=== PATIENT | male | born 1960 | race Caucasian/White ===

== ENCOUNTER 2019-11-18 09:38 | Emergency (ER) | payer SELFPAY ==
[2019-11-18 09:44] VITALS: BP 145/81; PULSE 108; RESP 16; TEMP 36.7; O2SAT 93; BMI 33.0
--- NOTE | 2019-11-18 09:52 | XRR_ITS ---
PROCEDURE INFORMATION: Exam: XR Left Shoulder Exam date and time: 11/18/2019 10:10 AM Age: 59 years old Clinical indication: Injury or trauma; Fall; Initial encounter; Blunt trauma (contusions or hematomas; Shoulder; Left; Additional info: Trauma/fall TECHNIQUE: Imaging protocol: XR Left shoulder. Views: 2 or more views. COMPARISON: No relevant prior studies available. FINDINGS: Bones/joints: Impacted minimally angulated humeral neck fracture. Possible fracture of the greater tuberosity. Fractured left posterior lateral 5th and 6th ribs of indeterminate age. Soft tissues: Normal. XR/XR shoulder LT min 2V* [id number] IMPRESSION: 1. Impacted minimally angulated humeral neck fracture. 2. Possible fracture of the greater tuberosity. 3. Fractured left posterior lateral 5th and 6th ribs of indeterminate age.
--- NOTE | 2019-11-18 10:21 | W.ED.FALL ---
HPI - Fall General: Chief Complaint: Fall Stated Complaint: left shoulder pain/fall Time Seen by Provider: 11/18/19 09:52 Source: patient Mode of arrival: ambulatory Limitations: no limitations History of Present Illness: HPI Narrative: stubbed toe on an object that then caused him to fall onto his L shoulder x yesterday; denies striking his head, LOC, neck or back pain MD complaint: fall Onset (ago): day(s) Fall from: standing Place fall occurred: home Loss of consciousness: None Prolonged down time: no Symptoms prior to fall: none Context: tripped/slipped Location of injury: other (L shoulder) Location of injury - extremities: Left: shoulder Associated symptoms-after fall: Reports no associated symptoms; Denies abdominal pain, chest pain, lightheadedness or neck pain Review of Systems Eyes: Denies: change in vision or blurry vision Card: Denies: chest pain, palpitations, irregular heart rhythm, lightheadedness, syncope or pre-syncope Resp: Denies: shortness of breath GI: Denies: abdominal pain, nausea or vomiting Musc: Reports: joint pain (L shoulder); Denies: neck pain, back pain, extremity pain or extremity swelling Neuro: Denies: numbness in extremities, weakness in extremities, changes in sensation, lack of coordination, frequent falls or dizziness PFSH ED PFSH: Statuses (acute, chronic, etc) shown below reflect problem list status as previously entered and may not be historically accurate Social History Smoking and tobacco status: current every day smoker Physical Exam Const: COMMON NORMALS: no apparent distress, oriented x3, alert and well nourished NUTRITIONAL APPEARANCE: obese HENMT: COMMON NORMALS: normocephalic and head/scalp atraumatic HEAD & SCALP: normocephalic and atraumatic Neck/C-Spine: COMMON NORMALS: full ROM CERVICAL SPINE: No cervical spine tenderness Resp: COMMON NORMALS: normal respiratory effort and clear to auscultation bilaterally AUSCULTATION: clear to auscultation bilaterally Cardio: COMMON NORMALS: regular rate and regular rhythm RATE: regular rate RHYTHM: regular rhythm Extremity: LEFT UPPER EXTREMITY: Yes shoulder joint (TTP; severly dec ROM secondary to pain; NV intact ) Neuro: COMMON NORMALS: oriented x3 SENSORIUM/ORIENTATION: Yes alert Course Vital Signs: Vital signs: Vital Signs Temperature 98.1 F 11/18/19 09:44 Pulse Rate 108 H 11/18/19 09:44 Respiratory Rate 16 11/18/19 09:44 Blood Pressure 145/81 11/18/19 09:44 Pulse Oximetry 93 11/18/19 09:44 MDM - Fall MDM Narrative: Medical decision making narrative: will sling and CM will set him up with orthopedic follow up Imaging Data^: L shoulder : My impression: humeral neck fx; minimal to no displacement; glenohumeral joint intact Discharge Plan Discharge Patient Disposition: Home, Self-Care Clinical Impression: Humerus surgical neck fracture Qualifiers: Encounter type: initial encounter Fracture type: closed Fracture morphology: unspecified fracture morphology Fracture alignment: nondisplaced Laterality: left Qualified Code(s): S42.215A - Unspecified nondisplaced fracture of surgical neck of left humerus, initial encounter for closed fracture Condition: Stable Prescriptions: No Action Aspercream See Rx Instructions .ROUTE .COMPLEX PRN (Reason: unknown) RF: 0 Senokot 8.6 mg Tablet 8.6 mg PO BID RF: 0 cyanocobalamin (vitamin B-12) 1,000 mcg Tablet 1,000 mcg PO DAILY RF: 0 levothyroxine 25 mcg Tablet 25 mcg PO DAILY RF: 0 carbamazepine 200 mg Tablet Extended Release 12 Hr 200 mg PO BID RF: 0 Protonix 40 mg Tablet,Delayed Release (Dr/Ec) 40 mg PO DAILY RF: 0 simvastatin 20 mg Tablet 20 mg PO DAILY RF: 0 metformin 1,000 mg Tablet 1,000 mg PO BID RF: 0 ibuprofen 200 mg Tablet 200 - 400 mg PO DAILY PRN (Reason: Pain) RF: 0 folic acid 1 mg Tablet 1 mg PO DAILY RF: 0 olanzapine 15 mg Tablet 15 mg PO BEDTIME RF: 0 albuterol sulfate 90 mcg/actuation Hfa Aerosol Inhaler 2 puff INHALATION Q4H PRN (Reason: Shortness Of Breath) RF: 0 Lunesta 3 mg Tablet 3 mg PO BEDTIME RF: 0 diclofenac sodium 1 % Gel 2 - 4 g TOPICAL QID PRN (Reason: unknown) RF: 0 oxycodone 10 mg Tablet See Rx Instructions .ROUTE .COMPLEX RF: 0 oxycodone 10 mg Tablet See Rx Instructions .ROUTE .COMPLEX RF: 0 triamcinolone acetonide See Rx Instructions .ROUTE .COMPLEX PRN (Reason: unknown) RF: 0 Discharge Orders: Discharge Order (Routine); Ordered 11/18/19 Ordered By: Tereza Moreira Referrals: Sanam Sosa DO [Primary Care Provider] - Discharge Diet: Usual diet Discharge Activity: stay in sling until instructed otherwise by orthopedics Activity Restrictions/Additional Instructions: Can continue your normal daily pain meds for discomfort. Case management should contact you tomorrow to give you appointment date/time for orthopedic follow up. Discharge Date/Time: 11/18/19 10:42 Coding Level of Care Code ED Senior Oracle Soa Developer for Chg Fwd Exam Problem Focused
--- NOTE | 2019-11-19 14:51 | DCPLANNER ---
ancillary services manager therapy had message to schedule a follow up appointment for patient with ortho. ancillary services manager therapy called ortho, spoke with Pat, gave clinic patients information. ancillary services manager therapy was told that patients information would be printed and reviewed. Clinic will call case sealer and patient with appointment information.
--- NOTE | 2019-11-21 13:16 | DCPLANNER ---
A follow up appointment was scheduled for November at 10:[address] Merchant. Clinic will notify patient of the appointment.
--- NOTE | 2019-11-27 14:39 | DCPLANNER ---
Patient attended appointment scheduled for 11.22.19 with ortho.
== END 2019-11-18 10:42 | disposition home or self-care (01) ==
PROVIDERS: Emergency Provider Physician Assistant; Family Provider Family Medicine; PCP Family Medicine
DX: S42.215A Unspecified nondisplaced fracture of surgical neck of left humerus, initial encounter for closed fracture (principal); Z79.84 Long term (current) use of oral hypoglycemic drugs; W19.XXXA Unspecified fall, initial encounter; Y92.009 Unspecified place in unspecified non-institutional (private) residence as the place of occurrence of the external cause; F17.210 Nicotine dependence, cigarettes, uncomplicated
CPT/HCPCS: 73030; 99282

== ENCOUNTER → 2019-12-06 09:34 | Outpatient (BNVA) | payer OTHER, SELFPAY | PROVIDERS: Family Provider Family Medicine; PCP Family Medicine; Visit Provider Orthopaedic Surgery | DX: S42.292A Other displaced fracture of upper end of left humerus, initial encounter for closed fracture (principal); X58.XXXA Exposure to other specified factors, initial encounter | CPT/HCPCS: 73030 ==

== ENCOUNTER → 2019-12-27 13:30 | Outpatient (BNVA) | payer OTHER, SELFPAY | PROVIDERS: Family Provider Family Medicine; PCP Family Medicine; Visit Provider Orthopaedic Surgery | DX: S42.212A Unspecified displaced fracture of surgical neck of left humerus, initial encounter for closed fracture (principal); S22.42XA Multiple fractures of ribs, left side, initial encounter for closed fracture; X58.XXXA Exposure to other specified factors, initial encounter | CPT/HCPCS: 73030 ==

== ENCOUNTER 2020-01-07 09:25 | Outpatient (RCR) | payer BC, SELFPAY | END 2020-02-05 23:59 | disposition home or self-care (01) | LOC: SPT 09:25 | PROVIDERS: Family Provider Family Medicine; PCP Family Medicine; Referring Provider Orthopaedic Surgery; Visit Provider Orthopaedic Surgery | DX: S42.202D Unspecified fracture of upper end of left humerus, subsequent encounter for fracture with routine healing (principal); X58.XXXD Exposure to other specified factors, subsequent encounter | CPT/HCPCS: 97110; 97162 ==

== ENCOUNTER 2023-02-12 00:09 | Inpatient (IN) | payer MEDICARE, SELFPAY ==
[2023-02-12] VITALS (14 sets, daily range): BP systolic 127–153; BP diastolic 65–78; PULSE 98–124; RESP 16–20; TEMP 36.7–37.4; O2SAT 91–97; BMI 30.4; BMI 32.3
--- NOTE | 2023-02-12 00:24 | ED.C_ITS ---
HPI - Psych General: Chief Complaint: Psychiatric Symptoms Stated Complaint: 96 hour hold Time Seen by Provider: 02/12/23 00:11 Source: patient and police Mode of arrival: ambulatory Limitations: no limitations History of Present Illness: 62-year-old male who is brought up by police after his daughter placed him on a 96-hour hold he has a history of alcoholism she states he had not drank for some time start drinking heavily again over the last week states has been having hallucinations he is been also having thoughts of killing people she states she had found him in his car with guns he does get to kill his neighbors for sleep with his his had passed recently. He also stated that he just does not want to live anymore and would like to patient here is denying SI and HI he does appear confused he has a history of cirrhosis likely from his daughter he had recently had a GI bleed as well where he was in [facility] in October history from his daughter and him is very poor though. Associated symptoms: Reports auditory hallucinations and suicidal ideation Review of Systems Const: Denies: fever(s), chills, body aches or change in appetite Eyes: Denies: blurry vision or eye discomfort ENMT: Denies: throat pain or dental pain Card: Denies: chest pain Resp: Denies: dyspnea GI: Denies: abdominal pain, nausea, vomiting or diarrhea : Denies: dysuria Musc: Denies: neck pain or back pain Skin/Breast: Denies: rash Neuro: Denies: headache(s) Psych: Reports: paranoia, auditory hallucinations and suicidal ideation Marc/Lymph: Denies: easy bruising All/Imm: Denies: urticaria PFS ED PFSH: Medical History Hypothyroidism Social History Smoking and tobacco status: current every day smoker Physical Exam Const: COMMON NORMALS: patient oriented x3 HENMT: COMMON NORMALS: normocephalic and atraumatic HEAD & SCALP: normocephalic and atraumatic Eye: COMMON NORMALS: Equal, round and reactive pupils present and EOMs intact bilaterally PUPIL: Yes Equal, round and reactive pupils present Neck/C-Spine: COMMON NORMALS: full ROM and supple Chest: COMMONS NORMALS: normal inspection of the chest and normal palpation of entire chest wall Resp: COMMON NORMALS: normal respiratory effort, No retractions, No use of accessory muscles and clear to auscultation bilaterally AUSCULTATION: clear to auscultation bilaterally Cardio: COMMON NORMALS: regular rate, regular rhythm and No murmurs present (Cardio) RATE: regular rate RHYTHM: regular rhythm GI: COMMON NORMALS: Normal to inspection, nondistended, normoactive bowel sounds present, Soft to palpation, non-tender and no masses PALPATION: Yes Soft to palpation Extremity: COMMON NORMALS: normal to inspection and full ROM Neuro: COMMON NORMALS: patient oriented x3, moves all extremities and no focal motor deficits Psych: COMMON NORMALS: mental status grossly normal, Normal thought process present and cooperative THOUGHT PROCESS: Normal thought process present THOUGHT CONTENT: Yes Suicidality present, Yes Homicidality present and Yes Hallucination(s) present Skin: COMMON NORMALS: no rashes or lesions noted and no wounds GENERAL SKIN EXAM: no rashes or lesions noted Course Vital Signs: Vital signs: Vital Signs Temperature 98.4 F 02/12/23 01:56 Pulse Rate 111 H 02/12/23 01:56 Respiratory Rate 16 02/12/23 01:56 Blood Pressure 147/75 02/12/23 00:18 Pulse Oximetry 97 02/12/23 01:56 Oxygen Delivery Me thod 02/12/23 01:56 MDM - Psych Medical Decision Making Patient presents here with hallucinations been making suicidal statements and homicidal statements patient's daughter did place him under 96 upon checking his blood work his ammonia is quite elevated likely with a hepatic encephalopathy could be causing all of this I spoke to the hospitalist will admit to hospital service will have psychiatry is consulted as well since he is under 96. Lab Data 02/12/23 00:40 02/12/23 00:40 Radiology Impressions Chest X-Ray 02/12/23 00:29 IMPRESSION: No acute findings. Head CT 02/12/23 00:29 IMPRESSION: Negative for intracranial hemorrhage or mass effect. Laboratory Results WBC 4.7 10^3/uL (4.0-10.0) 02/12/23 00:40 RBC 4.68 10^6/uL (4.1-5.3) 02/12/23 00:40 Hgb 10.0 g/dL (11.7-16.6) L 02/12/23 00:40 Hct 34.0 % (42.0-52.0) L 02/12/23 00:40 MCV 72.6 fl (80-94) L 02/12/23 00:40 MCH 21.4 pg (28.0-34.0) L 02/12/23 00:40 MCHC 29.4 g/dL (30.0-36.0) L 02/12/23 00:40 RDW 20.7 % (12.1-15.1) H 02/12/23 00:40 Plt Count 141 10^3/cmm (130-400) 02/12/23 00:40 MPV 9.6 fL (7.4-10.4) 02/12/23 00:40 Neut % (Auto) 42.3 % 02/12/23 00:40 Lymph % (Auto) 46.1 % 02/12/23 00:40 Day % (Auto) 6.1 % 02/12/23 00:40 Eos % (Auto) 3.2 % 02/12/23 00:40 Baso % (Auto) 2.1 % 02/12/23 00:40 Neut # (Auto) 2.00 10^3/uL (1.8-7.7) 02/12/23 00:40 Lymph # (Auto) 2.2 10^3/uL (0.8-4.8) 02/12/23 00:40 Day # (Auto) 0.3 10^3/uL (0.2-0.9) 02/12/23 00:40 Eos # (Auto) 0.2 10^3/uL (0.0-0.8) 02/12/23 00:40 Baso # (Auto) 0.1 10^3/uL (0.0-0.1) 02/12/23 00:40 Nucleated RBC % (auto) 0 % 02/12/23 00:40 Nucleated RBCs # 0.0 /100WBC 02/12/23 00:40 PT 17.30 SECONDS (12.1-14.9) H 02/12/23 00:40 INR 1.37 (0.8-1.2) H 02/12/23 00:40 Sodium 136 mmol/L (136-145) 02/12/23 00:40 Potassium 3.6 mmol/L (3.5-5.1) 02/12/23 00:40 Chloride 103 mmol/L (98-107) 02/12/23 00:40 Carbon Dioxide 23 mmol/L (22-29) 02/12/23 00:40 Anion Gap 13.6 (5-19) 02/12/23 00:40 BUN 5 mg/dL (8-23) L 02/12/23 00:40 Creatinine 0.5 mg/dL (0.7-1.2) L 02/12/23 00:40 GFR Calculation 167.4 mL/min (90-130) H 02/12/23 00:40 Glucose 319 mg/dL (65-115) H 02/12/23 00:40 Calculated Osmolality 292 mOsm/kg (285-295) 02/12/23 00:40 Calcium 7.9 mg/dL (8.5-10.5) L 02/12/23 00:40 Total Bilirubin 0.8 mg/dL (0.15-1.2) 02/12/23 00:40 AST 26 U/L (0-40) 02/12/23 00:40 ALT 12 U/L (0-41) 02/12/23 00:40 Alkaline Phosphatase 164 U/L (40-130) H 02/12/23 00:40 NT-Pro-B Natriuret Pep 36 pg/mL (0-125) 02/12/23 00:40 Total Protein 7.2 g/dL (6.6-8.7) 02/12/23 00:40 Albumin 3.5 g/dL (3.5-5.2) 02/12/23 00:40 Globulin 3.7 g/dL (1.3-4.6) 02/12/23 00:40 TSH 1.22 uIU/mL (0.27-4.20) 02/12/23 00:40 Urine Color Yellow (Yellow) 02/12/23 00:26 Urine Appearance Clear (CLEAR) 02/12/23 00:26 Urine pH 5 (5-7) 02/12/23 00:26 Ur Specific [place] 1.010 (1.005-1.030) 02/12/23 00:26 Urine Protein Neg (Negative) 02/12/23 00:26 Urine Glucose (UA) 4+ (Normal) H 02/12/23 00:26 Urine Ketones 1+ (Negative) H 02/12/23 00:26 Urine Blood Neg (Negative) 02/12/23 00:26 Urine Nitrate Negative (Negative) 02/12/23 00:26 Urine Bilirubin Neg (Negative) 02/12/23 00:26 Urine Urobilinogen 1 mg/dL (Negative) H 02/12/23 00:26 Ur Leukocyte Esterase Negative (Negative) 02/12/23 00:26 Salicylates < 0.3 mg/dL (3-10) L 02/12/23 00:40 Urine Opiates Screen Negative ng/mL (Negative) 02/12/23 00:26 Acetaminophen < 5.0 ug/mL (10-30) L 02/12/23 00:40 Ur Barbiturates Screen Negative ng/mL (Negative) 02/12/23 00:26 Ur Phencyclidine Scrn Negative ng/mL (Negative) 02/12/23 00:26 Ur Amphetamines Screen Negative ng/mL (Negative) 02/12/23 00:26 U Benzodiazepines Scrn Positive ng/mL (Negative) H 02/12/23 00:26 Urine Cocaine Screen Negative ng/mL (Negative) 02/12/23 00:26 U Marijuana (THC) Screen Negative ng/mL (Negative) 02/12/23 00:26 Ethyl Alcohol 291 mg/dL (0-10) H 02/12/23 00:40 SARS-CoV-2 Ag (Rapid) negative (Negative) 02/12/23 00:59 EKG Data EKG 1: I personally reviewed and interpreted this EKG as follows: EKG interpretation date: 02/12/23 EKG interpretation time: 00:37 Interpretation: sinus tach hr [address] or t wave abnormalities qrs 78 qtc 398 Discharge Plan Discharge Patient Disposition: Admitted As Inpatient Admit Provider: Jose Chan Clinical Impression: Alcoholic cirrhosis, Acute hepatic encephalopathy, Depression Condition: Stable Coding Level of Care Code ED Mechanical Engineering Draftsperson for Lamin Pink
--- NOTE | 2023-02-12 00:29 | CTR_ITS ---
PROCEDURE INFORMATION: Exam: CT Head Without Contrast Exam date and time: 02/12/2023 12:46 AM Age: 62 years old Clinical indication: Altered mental status/memory loss; Confusion or disorientation; Additional info: AMS TECHNIQUE: Imaging protocol: Computed tomography of the head without contrast. Radiation optimization: All CT scans at this facility use at least one of these dose optimization techniques: automated exposure control; mA and/or kV adjustment per patient size (includes targeted exams where dose is matched to clinical indication); or iterative reconstruction. REPORTING DATA: Count of CT and Cardiac NM exams in prior 12 months: This patient has received 0 known CTs and 0 known cardiac nuclear medicine studies in the 12 months prior to the current study. COMPARISON: MR head wo/w con [id number] 04/07/2018 4:13 PM RADIATION DOSE METRICS: Total DLP (mGy-cm): 1208.18 FINDINGS: Brain: Mild diffuse white matter disease likely reflecting chronic microvascular ischemic changes. Cerebral ventricles: No ventriculomegaly. Paranasal sinuses: Visualized sinuses are unremarkable. No fluid levels. Mastoid air cells: Visualized mastoid air cells are well aerated. Bones/joints: Unremarkable. No acute fracture. Soft tissues: Unremarkable. CT/CT head wo con* [id number] IMPRESSION: Negative for intracranial hemorrhage or mass effect.
--- NOTE | 2023-02-12 00:29 | XRR_ITS ---
PROCEDURE INFORMATION: Exam: XR Chest Exam date and time: 02/12/2023 12:52 AM Age: 62 years old Clinical indication: Shortness of breath; Additional info: SOB TECHNIQUE: Imaging protocol: Radiologic exam of the chest. Views: 1 view. COMPARISON: CR XR chest 1V [id number] 03/31/2018 6:16 PM FINDINGS: Lungs: Unremarkable. No consolidation. Pleural spaces: Unremarkable. No pleural effusion. No pneumothorax. Heart/Mediastinum: Unremarkable. No cardiomegaly. Bones/joints: Unremarkable. XR/XR chest 1V portable [id number] IMPRESSION: No acute findings.
--- NOTE | 2023-02-12 00:37 | ECG_ITS ---
[facility] Test Date: 2023-02-12 Pat Name: Bernardino Jackson Department: Room: Gender: Male Punch Card Operator: : 1960 Requested By: Karla Rodriguez Order Number: [id number] Avril MD: Gretchen Leung M.D. Measurements Intervals [place] Chuck Rate: 119 P: 156 IL: 136 QRS: 28 QRSD: 78 T: 114 QT: 327 QTc: 461 Interpretive Statements SINUS TACHYCARDIA SEPTAL MYOCARDIAL INFARCTION , OF INDETERMINATE AGE [40+ ms Q WAVE IN V1/V2] Nonspecific T wave changes in the high lateral leads Compared to ECG 03/29/2018 22:42:15 Myocardial infarct finding now present Sinus rhythm no longer present Electronically Signed On 02-12-2023 21:40:58 CDT by Gretchen Leung M.D. [id number]
[2023-02-12 01:09] LABS: Basophils # 0.1 10^3/uL (0.0-0.1); Basophils % 2.1 %; Eosinophils # 0.2 10^3/uL (0.0-0.8); Eosinophils % 3.2 %; Lymphocytes # 2.2 10^3/uL (0.8-4.8); Lymphocytes % 46.1 %; Mean Corpuscular HGB Conc 29.4 g/dL (30.0-36.0); Mean Corpuscular Hemoglobin 21.4 pg (28.0-34.0); Mean Corpuscular Volume 72.6 fl (80-94); Mean Platelet Volume 9.6 fL (7.4-10.4); Monocytes # 0.3 10^3/uL (0.2-0.9); Monocytes % 6.1 %; Neutrophils % 42.3 %; Nucleated Red Blood Cells % 0 %; Platelet Count 141 10^3/cmm (130-400); Red Blood Count 4.68 10^6/uL (4.1-5.3); Red Cell Distribution Width 20.7 % (12.1-15.1); White Blood Count 4.7 10^3/uL (4.0-10.0)
[2023-02-12 01:19] LABS: Add Urine Microscopic? NO; Charge for UA Resulting for Rev
[2023-02-12 01:22] LABS: Amphetamines Screen Urine Negative (Negative); Barbiturates Screen Urine Negative (Negative); Benzodiazepines Screen Urine Positive (Negative); Cocaine Screen Urine Negative (Negative); Opiate Screen Urine Negative (Negative); PCP Screen Urine Negative (Negative); THC Screen Urine Negative (Negative)
[2023-02-12 01:29] LABS: Alanine Aminotransferase 12 U/L (0-41); Albumin Level 3.5 g/dL (3.5-5.2); Alcohol Level 291 mg/dL (0-10); Alkaline Phosphatase 164 U/L (40-130); Anion Gap 13.6 (5-19); Aspartate Amino Transferase 26 U/L (0-40); Blood Urea Nitrogen 5 mg/dL (8-23); Calcium 7.9 mg/dL (8.5-10.5); Carbon Dioxide 23 mmol/L (22-29); Chloride 103 mmol/L (98-107); Globulin 3.7 g/dL (1.3-4.6); Glomerular Filtration Rate 167.4 mL/min (90-130); Glucose 319 mg/dL (65-115); NT Pro B Type Natriuretic Pept 36 pg/mL (0-125); Osmolality Calculated 292 mOsm/kg (285-295); Potassium 3.6 mmol/L (3.5-5.1); Sodium 136 mmol/L (136-145); Thyroid Stimulating Hormone 1.22 uIU/mL (0.27-4.20); Total Bilirubin 0.8 mg/dL (0.15-1.2); Total Protein 7.2 g/dL (6.6-8.7)
[2023-02-12 01:30] LABS: INR 1.37 (0.8-1.2)
[2023-02-12 01:31] LABS: Glucose Urine UA 4+ (Normal); Protein Urine Neg (Negative); Urine Appearance Clear (CLEAR); Urine Color Yellow (Yellow); pH Urine 5 (5-7)
[2023-02-12] MEDS: multivitamin therapeutic Tablet 1 TAB PO ×2 (01:31→10:02)
[2023-02-12] MEDS: sodium chloride 0.9% 1,000 ML 999 ML IV ×2 (01:31→03:04)
[2023-02-12 01:32] LABS: Acetaminophen < 5.0 ug/mL (10-30); Salicylate < 0.3 mg/dL (3-10)
[2023-02-12 01:32] LABS: Bilirubin Urine Neg (Negative); Blood Urine Neg (Negative); Ketones Urine 1+ (Negative); Leukocyte Esterase Urine Negative (Negative); Nitrate Urine Negative (Negative); Urobilinogen Urine 1 mg/dL (Negative)
[2023-02-12] MEDS: LORazepam 2 mg/mL INJ 1 mL 1 MG IVP (01:57)
[2023-02-12 02:42] LABS: SARS Covid-2 Antigen negative (Negative)
--- NOTE | 2023-02-12 02:45 | PM.CONSULT ---
Providers/Reason For Consult Consulting Physician/Specialty*: Carole Oneill MD/Internal Medicine Reason for Consult*: Medical management Requesting Physician: Dr. Jose Chan Attending Physician: Dr. Jose Chan Primary Care Provider: Sanam Sosa DO History of Present Illness History of Present Illness Bernardino Jackson is a 62 year old male with past medical history of GI bleed in October, liver cirrhosis hypothyroidism, diabetes mellitus, left humerus fracture 2019, seizures? Presented to the hospital today after being brought in by his daughter for 96-hour hold. Patient has a history of alcoholism and she states that he has not drank for some time but recently started drinking heavily again and he is having hallucinations now. He has been having thoughts of killing people around the neighborhood including himself. She found him in the car with guns. His recently he does not want to live anymore and is depressed however denies suicidal ideation in the ER. He is somewhat confused. Poor historian. Most of the history obtained from daughter. I obtained history from chart and ER doctor. Patient is a current everyday smoker. ED course: On arrival blood pressure 147/75, respirate 18, tachycardic 124, temperature 99.3, saturating 95% on room air. EKG showed sinus tachycardia no acute ST abnormalities. Hemoglobin 10.0, RDW 20.7, platelet 141, INR 1.37, BUN 5, creatinine 0.5, glucose 319, calcium 7.9, alkaline phosphatase 164, TSH 1.22. UA negative for leukocyte Estrace, nitrates. Glucose 4+ with positive. Salicylates negative, negative opioids, negative urine drug screen except positive for benzodiazepines. Alcohol level positive at 291, rapid COVID-negative. CT head did not show any intracranial bleed or mass effect. Chest x-ray shows no acute findings at this time. Patient given folic acid, 2 L normal saline bolus, thiamine 100 mg IM x1, multivitamins. Patient has been admitted to the neuropsychiatric unit and medicine has been consulted for management of medical conditions. Medications/Allergies Home Medications Medication Instructions Recorded Confirmed Last Taken Type Aspercream See Rx Instructions .Route 11/18/19 12/27/19 Unknown History .COMPLEX PRN unknown albuterol sulfate 90 mcg/actuation 2 puff inhalation Q4H PRN 11/18/19 12/27/19 Unknown History aerosol inhaler Shortness Of Breath carbamazepine 200 mg 200 mg PO BID 11/18/19 12/27/19 Unknown History tablet,extended release,12 hr cyanocobalamin (vitamin B-12) 1,000 mcg PO DAILY 11/18/19 12/27/19 Unknown History 1,000 mcg tablet diclofenac sodium 1 % topical gel 2 - 4 g topical QID PRN unknown 11/18/19 12/27/19 Unknown History eszopiclone 3 mg tablet (Lunesta) 3 mg PO BEDTIME 11/18/19 12/27/19 Unknown History folic acid 1 mg tablet 1 mg PO DAILY 11/18/19 12/27/19 Unknown History ibuprofen 200 mg tablet 200 - 400 mg PO DAILY PRN Pain 11/18/19 12/27/19 Unknown History levothyroxine 25 mcg tablet 25 mcg PO DAILY 11/18/19 12/27/19 Unknown History metformin 1,000 mg tablet 1,000 mg PO BID 11/18/19 12/27/19 Unknown History olanzapine 15 mg tablet 15 mg PO BEDTIME 11/18/19 12/27/19 Unknown History oxycodone 10 mg tablet See Rx Instructions .Route .COMPLEX 11/18/19 12/27/19 Unknown History oxycodone 10 mg tablet See Rx Instructions .Route .COMPLEX 11/18/19 12/27/19 Unknown History pantoprazole 40 mg tablet,delayed 40 mg PO DAILY 11/18/19 12/27/19 Unknown History release (Protonix) sennosides 8.6 mg tablet (Senokot) 8.6 mg PO BID 11/18/19 12/27/19 Unknown History simvastatin 20 mg tablet 20 mg PO DAILY 11/18/19 12/27/19 Unknown History triamcinolone acetonide See Rx Instructions .Route 11/18/19 12/27/19 Unknown History .COMPLEX PRN unknown Allergies Allergy/AdvReac Type Severity Reaction Status Date / Time No Known Allergies Allergy Verified 12/27/19 13:40 PFSH Acute PFSH: Medical History Hypothyroidism Social History Smoking and tobacco status: current every day smoker Vitals/I&O/Wt Last Vital Signs Temp 98.4 F 02/12/23 01:56 Pulse 111 H 02/12/23 01:56 Resp 16 02/12/23 01:56 BP 147/75 02/12/23 00:18 Pulse Ox 97 02/12/23 01:56 O2 Del Method 02/12/23 01:56 Weight last 48 hrs Weight 96.162 kg Physical Exam Narrative: General: Alert oriented to self, patient seen laying in bed at this time. HEENT: Normocephalic, atraumatic, EOMI, no acute respiratory distress Cardio: Regular rate rhythm, normal S1-S2 Respiratory: Clear to auscultation bilaterally no wheezes no rhonchi. GI: Abdomen soft, nontender, bowel sounds + Extremities: No edema noted bilateral lower extremities. Data 02/12/23 00:40 02/12/23 00:40 A&P Assessment and plan (1) Hypothyroidism: (2) Alcohol intoxication: (3) Hallucinations: (4) Suicidal ideation: (5) History of GI bleed: (6) Alcoholic cirrhosis: (7) Anemia: (8) Diabetes mellitus: Plan #Alcohol abuse, alcohol intoxication #Suicidal ideation #96-hour hold #Seizures #Diabetes mellitus #GERD #Constipation #Insomnia #COPD? #Recent GI bleed ? Continue DuoNeb every 6 hours as needed ? Need to confirm home medications before ordering ? Continue levothyroxine ? Continue low-dose intensity sliding scale insulin ? Continue Protonix ? Continue Senokot 8.5 twice daily ? Continue simvastatin ? Continue thiamine and folic acid ? [facility] protocol to be ordered/n.p.u. orders ? Check hemoglobin A1c ? Recheck hemoglobin hematocrit every 12 hours. No evidence of bleed at this time ? Check iron studies, TIBC, ferritin. Patient may require iron infusion ? We will hold off on DVT prophylaxis at this time ? Check TSH ? Rest of management as per psychiatry Full code SCDs for DVT prophylaxis Consult Attestations Medical Necessity Statement: Defer to primary team Other Coding Information Focused coding review requested Diagnoses Hypothyroidism E03.9 Alcohol intoxication F10.929 Hallucinations R44.3 Suicidal ideation R45.851 History of GI bleed Z87.19 Alcoholic cirrhosis K70.30 Anemia D64.9 Diabetes mellitus E11.9
[2023-02-12 03:47] LABS: Ammonia 165 umol/L (16-60)
--- NOTE | 2023-02-12 03:55 | PM.HP ---
Providers/Chief Complaint Admitting Physician: Jose Chan MD Primary Care Provider: Sanam Sosa DO Chief Complaint: 96 hour hold History of Present Illness It Iam Jackson is a 62 year old male with past medical history of GI bleed in October, liver cirrhosis hypothyroidism, diabetes mellitus, left humerus fracture 2020, seizures?? Presented to the hospital today after being brought in by his daughter for 96-hour hold.? Patient has a history of alcoholism and she states that he has not drank for some time but recently started drinking heavily again and he is having hallucinations now.? He has been having thoughts of killing people around the neighborhood including himself.? She found him in the car with guns.? His recently he does not want to live anymore and is depressed however denies suicidal ideation in the ER.? He is somewhat confused.? Poor historian.? Most of the history obtained from ER doctor.? Patient is a current everyday smoker. When seen he is quite appropriate appears depressed. He states that his and he was looking at things in the house and the way she left the house and became really emotional and wanted to go grab a drink. He states his grandson forced him to come to the hospital. Patient does not talk about guns or suicidal ideation at this time however does say that he was very depressed and sad. He is asking for his sleeping medication. States he does not take metformin anymore and is now on gabapentin however cannot confirm any other medications at this time. He goes to [facility]. His home medications will need to confirm in a.m. from pharmacy directly. ED course: On arrival blood pressure 147/75, respirate 18, tachycardic 124, temperature 99.3, saturating 95% on room air.? EKG showed sinus tachycardia no acute ST abnormalities.? Hemoglobin 10.0, RDW 20.7, platelet 141, INR 1.37, BUN 5, creatinine 0.5, glucose 319, calcium 7.9, alkaline phosphatase 164, TSH 1.22.? UA negative for leukocyte Estrace, nitrates.? Glucose 4+ with positive.? Salicylates negative, negative opioids, negative urine drug screen except positive for benzodiazepines.? Alcohol level positive at 291, rapid COVID-negative.? CT head did not show any intracranial bleed or mass effect.? Chest x-ray shows no acute findings at this time.? Patient given folic acid, 2 L normal saline bolus, thiamine 100 mg IM x1, multivitamins.? Patient was to be admitted to Neuropsych Unit and medicine was consulted however after ammonia level came back at 165 medicine admitted patient to their service with psychiatry on consult. Medications/Allergies Home Medications Medication Instructions Recorded Confirmed Last Taken Type Aspercream See Rx Instructions .Route 11/18/19 12/27/19 Unknown History .COMPLEX PRN unknown albuterol sulfate 90 mcg/actuation 2 puff inhalation Q4H PRN 11/18/19 12/27/19 Unknown History aerosol inhaler Shortness Of Breath carbamazepine 200 mg 200 mg PO BID 11/18/19 12/27/19 Unknown History tablet,extended release,12 hr cyanocobalamin (vitamin B-12) 1,000 mcg PO DAILY 11/18/19 12/27/19 Unknown History 1,000 mcg tablet diclofenac sodium 1 % topical gel 2 - 4 g topical QID PRN unknown 11/18/19 12/27/19 Unknown History eszopiclone 3 mg tablet (Lunesta) 3 mg PO BEDTIME 11/18/19 12/27/19 Unknown History folic acid 1 mg tablet 1 mg PO DAILY 11/18/19 12/27/19 Unknown History ibuprofen 200 mg tablet 200 - 400 mg PO DAILY PRN Pain 11/18/19 12/27/19 Unknown History levothyroxine 25 mcg tablet 25 mcg PO DAILY 11/18/19 12/27/19 Unknown History metformin 1,000 mg tablet 1,000 mg PO BID 11/18/19 12/27/19 Unknown History olanzapine 15 mg tablet 15 mg PO BEDTIME 11/18/19 12/27/19 Unknown History oxycodone 10 mg tablet See Rx Instructions .Route .COMPLEX 11/18/19 12/27/19 Unknown History oxycodone 10 mg tablet See Rx Instructions .Route .COMPLEX 11/18/19 12/27/19 Unknown History pantoprazole 40 mg tablet,delayed 40 mg PO DAILY 11/18/19 12/27/19 Unknown History release (Protonix) sennosides 8.6 mg tablet (Senokot) 8.6 mg PO BID 11/18/19 12/27/19 Unknown History simvastatin 20 mg tablet 20 mg PO DAILY 11/18/19 12/27/19 Unknown History triamcinolone acetonide See Rx Instructions .Route 11/18/19 12/27/19 Unknown History .COMPLEX PRN unknown Allergies Allergy/AdvReac Type Severity Reaction Status Date / Time No Known Allergies Allergy Verified 12/27/19 13:40 PFSH Acute PFSH: Medical History Hypothyroidism Social History Smoking and tobacco status: current every day smoker Vitals/I&O/Wt Last Vital Signs Temp 98.4 F 02/12/23 01:56 Pulse 111 H 02/12/23 01:56 Resp 16 02/12/23 01:56 BP 147/75 02/12/23 00:18 Pulse Ox 97 02/12/23 01:56 O2 Del Method 02/12/23 01:56 Weight last 48 hrs Weight 96.162 kg Physical Exam Narrative: General: Alert oriented to self, patient seen laying in bed at this time. HEENT: Normocephalic, atraumatic, EOMI, no acute respiratory distress Cardio: Regular rate rhythm, normal S1-S2 Respiratory: Clear to auscultation bilaterally no wheezes no rhonchi. GI: Abdomen soft, nontender, bowel sounds + Extremities: No edema noted bilateral lower extremities. Data 02/12/23 00:40 02/12/23 00:40 A&P Assessment and plan (1) Diabetes mellitus: (2) Anemia: (3) Alcoholic cirrhosis: (4) History of GI bleed: (5) Suicidal ideation: (6) Hallucinations: (7) Alcohol intoxication: (8) Hypothyroidism: (9) Hepatic encephalopathy: Plan #Alcohol abuse, alcohol intoxication #Suicidal ideation #Hepatic encephalopathy #96-hour hold #Seizures #Diabetes mellitus #GERD #Constipation #Insomnia #COPD? #Recent GI bleed #hyperammonemia ? Continue DuoNeb every 6 hours as needed ? Need to confirm home medications before ordering ? Continue levothyroxine ? Continue low-dose intensity sliding scale insulin ? Continue Protonix ? Continue Senokot 8.5 twice daily ? Continue simvastatin ? Continue thiamine and folic acid ? [facility] protocol to be ordered/n.p.u. orders ? Check hemoglobin A1c ? Recheck hemoglobin hematocrit every 12 hours. No evidence of bleed at this time ? Check iron studies, TIBC, ferritin. Patient may require iron infusion ? We will hold off on DVT prophylaxis at this time ? Check TSH ? Rest of management as per psychiatry - lactulose 20 g bid, titrare to 3 bm/day ?Consult psychiatry. Full code SCDs for DVT prophylaxis Attestations Medical Necessity Statement*: >2 midnight stay for management of hepatic encephalopathy Other Coding Information Focused coding review requested Diagnoses Diabetes mellitus E11.9 Anemia D64.9 Alcoholic cirrhosis K70.30 History of GI bleed Z87.19 Suicidal ideation R45.851 Hallucinations R44.3 Alcohol intoxication F10.929 Hypothyroidism E03.9 Hepatic encephalopathy K76.82
[2023-02-12] MEDS: lactulose oral liq 20 gm/30 mL UDC PO ×2 (04:43→16:30)
--- NOTE | 2023-02-12 04:45 | PC.NURSE ---
Pt arrived to room 278-1, ambulated to bed w/SBA. Pt unable to verify medications only can give a partial description of pill color.
[2023-02-12] MEDS: nicotine 14 mg Patch 1 PATCH TRANSDERMA (05:22)
[2023-02-12] MEDS: zolpidem 5 mg Tablet 2.5 MG PO (05:23)
[2023-02-12] MEDS: ipratropium-albuterol 3 mL Neb INHALATION (05:27)
[2023-02-12] MEDS: LORazepam 2 mg/mL INJ 1 mL IVP (05:30)
[2023-02-12 06:57] LABS: Magnesium 1.4 mg/dL (1.7-2.3)
[2023-02-12 06:59] LABS: Ferritin 11 ng/mL (30-400); Iron 20 ug/dL (59-158); Percent Saturation 7.7 % (20-50); Total Iron Binding Capacity 257 mcg/dl; Unsaturated Iron Binding 237 ug/dL (112-347)
[2023-02-12 07:06] LABS: Procalcitonin 0.05 ng/mL (0-0.5)
[2023-02-12 07:17] LABS: Chol HDL Ratio 4.24 mg/dL (1.0-5.00); Cholesterol 178 mg/dL (0-200); HDL Cholesterol 42 mg/dL (60-100); LDL Cholesterol Calculated 92 mg/dL (50-129); LDL HDL Ratio 2.19 RATIO (0.00-3.22); Thyroid Stimulating Hormone 1.01 uIU/mL (0.27-4.20); Triglycerides 219 mg/dL (0-150); Vitamin B12 323 pg/mL (232-1245)
[2023-02-12 07:54] LABS: Estmated Average Glucose 148; Hemoglobin A1C 6.8 % (4.0-6.0)
[2023-02-12 08:27] LABS: Glucose Point of Care 232 mg/dL (70-110)
--- NOTE | 2023-02-12 08:32 | ECG_ITS ---
[facility] Test Date: 2023-02-12 Pat Name: Bernardino Jackson Department: Room: 278 Gender: Male Yarn Skeins Examiner: : 1960 Requested By: Andrew Amato Order Number: [id number] Avril MD: Gretchen Leung M.D. Measurements Intervals [place] Rate: 114 P: 221 VT: 242 QRS: 36 QRSD: 77 T: 53 QT: 354 QTc: 488 Interpretive Statements ECTOPIC ATRIAL TACHYCARDIA WITH FIRST DEGREE AV BLOCK SEPTAL MYOCARDIAL INFARCTION , OF INDETERMINATE AGE [40+ ms Q WAVE IN V1/V2] Compared to ECG 02/12/2023 00:37:49 First degree AV block now present Sinus tachycardia no longer present Myocardial infarct finding still present Electronically Signed On 02-12-2023 21:44:31 CDT by Gretchen Leung M.D. [email or web address]
--- NOTE | 2023-02-12 08:32 | USR_ITS ---
PROCEDURE INFORMATION: Exam: US Abdomen, Limited; Right Upper Quadrant Exam date and time: 02/12/2023 4:50 PM Age: 62 years old Clinical indication: Hepatic cirrhosis. TECHNIQUE: Imaging protocol: Real time ultrasound of the abdomen with image documentation. Limited exam focused on the right upper quadrant. COMPARISON: No relevant prior studies available. FINDINGS: Liver is enlarged measuring 17.6 cm. The hepatic parenchyma is echogenic. There is cirrhotic hepatic morphology. No focal hepatic lesion is seen. Apparent reversal of flow in the portal vein. Visualized IVC and aorta are grossly normal in caliber. No biliary ductal dilatation. The common bile duct measures 0.4 cm. Cholelithiasis with mildly thickened gallbladder wall. The gallbladder appears partially decompressed. The right kidney measures 13.2 cm. No suspicious mass or hydronephrosis. Pancreas is obscured by overlying bowel gas. US/US liver [id number] IMPRESSION: 1. Hepatomegaly with hepatic steatosis and cirrhotic hepatic morphology. Apparent reversal of flow in the portal vein. Recommend duplex ultrasound of the liver to evaluate vasculature. 2. Cholelithiasis with mildly thickened gallbladder wall. The gallbladder appears partially decompressed. If there is clinical concern for acute cholecystitis, consider HIDA scan.
[2023-02-12 09:16] LABS: Hepatitis A Antibody IgM Non-Reactive (Nonreactive); Hepatitis B Core IgM Non-Reactive (Nonreactive); Hepatitis B Surface Antigen Non-Reactive (Nonreactive); Hepatitis C Virus Antibody Non-Reactive (Nonreactive)
[2023-02-12 09:28] LABS: HIV 1 & 2 Antibody Non-Reactive (Non-Reactiv); HIV 1 & 2 Antigen Non-Reactive (Non-Reactiv)
[2023-02-12 09:39] LABS: Troponin(5th) Baseline 9 ng/L (0-15)
[2023-02-12] MEDS: folic acid 1 MG, multivitamin inj 10 ML, thiamine 100 MG in sodium chloride 0.9% 1,000 ML 252.8 MG IV (09:39)
[2023-02-12] MEDS: magnesium sulfate premix 2 GM/50 ML PIGGYBACK IV (09:40)
[2023-02-12] MEDS: levothyroxine 25 mcg Tablet PO (10:02)
[2023-02-12] MEDS: folic acid 1 mg Tablet PO (10:02)
[2023-02-12] MEDS: sennosides 8.6 mg Tablet PO ×2 (10:02→17:59)
[2023-02-12] MEDS: insulin lispro 100 unit/1 mL SUBCUT ×4 (10:03→21:19)
[2023-02-12] MEDS: thiamine 100 mg Tablet PO (10:03)
--- NOTE | 2023-02-12 10:32 | ECG_ITS ---
[facility] Test Date: 2023-02-12 Pat Name: Bernardino Jackson Department: Room: 278 Gender: Male Sales Correspondent: : 1960 Requested By: Andrew Amato Order Number: [id number] Avrli MD: Gretchen Leung M.D. Measurements Intervals [place] Rate: 112 P: -59 DC: 137 QRS: 22 QRSD: 85 T: 66 QT: 362 QTc: 494 Interpretive Statements SINUS TACHYCARDIA ABNORMAL RHYTHM ECG Compared to ECG 02/12/2023 08:44:15 First degree AV block no longer present Myocardial infarct finding no longer present Electronically Signed On 02-12-2023 21:48:18 CDT by Gretchen Leung M.D. [id number]
[2023-02-12 10:47] LABS: Glucose Point of Care 266 mg/dL (70-110)
[2023-02-12] MEDS: pantoprazole 40 mg SDV IVP ×2 (10:52→20:42)
[2023-02-12] MEDS: chlordiazePOXIDE 25 mg Capsule 50 MG PO ×3 (10:54→21:08)
[2023-02-12] MEDS: cyanocobalamin 1,000 mcg Tablet 1000 MCG PO (10:54)
[2023-02-12] MEDS: iron sucrose 200 MG in sodium chloride 0.9% (100 ml) 100 ML 220 MG IV (10:55)
[2023-02-12] MEDS: sodium chloride 0.9% 1,000 ML 75 ML IV (10:56)
[2023-02-12] MEDS: sucralfate 1 gm Tablet PO ×2 (10:56→21:09)
[2023-02-12 12:16] LABS: Troponin 5 2HR 8.17 ng/L (0-15)
--- NOTE | 2023-02-12 12:23 | P.NPUHP_ITS ---
Providers/Chief Complaint Admitting Physician: Jose Chan MD Primary Care Provider: Sanam Sosa DO Chief Complaint: 96 hour hold HPI NPU History of Present Illness Bernaridno Jackson is a 62 year old male who presented to the emergency department with the following report: Chief Complaint: Psychiatric Symptoms Stated Complaint: 96 hour hold Time Seen by Provider: 02/12/23 00:11 Source: patient and police Mode of arrival: ambulatory Limitations: no limitations History of Present Illness: 62-year-old male who is brought up by police after his daughter placed him on a 96-hour hold he has a history of alcoholism she states he had not drank for some time start drinking heavily again over the last week states has been having hallucinations he is been also having thoughts of killing people she states she had found him in his car with guns he does get to kill his neighbors for sleep with his his had passed recently. He also stated that he just does not want to live anymore and would like to patient here is denying SI and HI he does appear confused he has a history of cirrhosis likely from his daughter he had recently had a GI bleed as well where he was in [facility] in October history from his daughter and him is very poor though. Associated symptoms: Reports auditory hallucinations and suicidal ideation He was admitted to [facility] for definitive treatment of those issues. He presented to the emergency department intoxicated and was going to be admitted to the neuropsychiatric unit but his ammonia level was 160 and so it is agreed that he would be evaluated and treated on the MedSurg unit first and a psychiat angela consult was requested instead. Patient presents today as a confusing historian as he reports a clear history but it seems to not check out with previous information in his chart. He has had 3 previous inpatient psychiatric hospitalizations between March 2016 and March 2018 and a report addiction and chaos in his life. He presented reporting that he had a drinking problem but he stopped drinking 30 years ago. He reports that his of 40+ years of cancer last fall and that this was coming up on their anniversary and after years of not drinking which he suggested maybe no significant drinking since his 30s he had drank for the last week causing this significant intoxication. However records suggest that his drinking may have been intermittent. He was quite tearful as he described trying to keep himself busy since his and doing well when he is able to do that. He reports a history of being on an antidepressant in the past but he reports that the antidepressant was not effective reporting he was Wellbutrin XL. We discussed the risk benefits and alternatives of initiating Prozac 20 mg p.o. every morning in the morning and he understood and agreed to consider that. He also reported that his sleep med had been ineffective and that he was hoping to get help with that and that might assist him in discontinuation of his drinking. An excerpt of his last inpatient hospitalization is included below for context. He denies history of bipolar disorder and only reports being very depressed and struggling with grief. We discussed the fact that if in fact he is bipolar that a mood stabilizer may be necessary in combination with the Prozac. He was reportedly on Tegretol recently but he was not in any condition to really give specifics on his medications. We agree we do some research to figure that out. Per his 04/01/2018 [facility] inpatient psychiatric evaluation: Date of Service: April 01, 2018 Chief Complaint: Confusion HPI: The patient is a 57-year-old male with a history of head injury and chronic alcoholism who is admitted on a 96 hour hold for acute confusion/psychosis. Alcohol level in the emergency room was negative as was urine drug screen. The patient reports that he is in the hospital because of [employer] for revenue. He reports that he is being repeatedly arrested and taken to alf overnight or he is required to pay a fine. Reports that he never warrants going to alf. Reports that he is repeatedly place in the hospital on 96 hour hold with no medication. Since admission he has been labile, irritable at times, laughing at times, crying at times. He has apparent hyper mood, racing thoughts, pressured/hyperverbal speech, and significant distractibility/tangentiality. Patient has been described as exhibiting grandiose behavior since admission. During interview the patient reports that he has half a million dollars easily in total assets in [place] and has been trying to leave town, from . He reports that there've been domestic disputes with his and he currently has an ex parte and is not allowed to go on my own property. Reports that his and her family are stealing his belongings while he is restricted from going back there. He is not sure why is he is in the hospital currently. Reports the police picked him up yet again for no reason and sent him here. He reports that ultimately he is planning to move to [facility] family and hopes his son be able to help him achieve this. Apparently the patient's sister has been calling reporting that the family is trying to get guardianship. ER physician report was that the patient had been to the emergency room on the on a 96 hour hold with affidavits only reporting that he was agitated and he denied any suicidal/homicidal thoughts or psychosis and was discharged. 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 Police were called and then EMS who brought the patient back to the hospital yesterday. ER physician did note that the patient seemed to be confused with loose associations, talking about needing discharge early in the morning to shovel snow, and he was deemed to pose an imminent threat to himself due to altered mental status. At that time he was readmitted to the NPU. This is the patient's third psychiatric admission in the last month. During prior admissions he was stabilized on Zyprexa 10 mg at bedtime. However the patient reports that after his last DC, his primary care changed the Zyprexa to lorazepam which lasts longer. He reports that his PCP also provides him with prescriptions for Xanax/ Lunesta/ and oxycodone. He denies any illicit drug use or any alcohol use for years but records indicate that he had a prior assessment in October 2017 with a blood alcohol level of 265 and has a known history of alcohol abuse/dependence and urine drug screen was positive for marijuana during a prior admission. The patient does endorse a lot of stress recently due to frequent re-arrests by police and readmissions to the hospital. Also reports stress about court next week for divorce and ex parte. He initially denies that he was even added motel yesterday but then later describes how he is helping the cleaning staff do their jobs and was cleaning his own room. He reports that he had no towels and had to leave his room naked to get a towel. He does not feel that this was reason to call the police and reports that the motel just wanted an extra hotel room for some kind of recent tourist event they were hosting. Psychiatric review of systems: Patient reports that recently his mood is a little warmed up. Denies depression/ anhedonia/ SI/ HI. Has been recently irritable, euphoric at times, hyper, pressured speech, racing thoughts, grandiosity, decreased need for sleep only 8 hours in 4 days per patient. Denies any hallucinations but does endorse paranoia about small town police being after him. He is generally oriented including knowing hospital name but does miss day/date by 3 days. Past Medical History Past Medical History: PAST PSYCHIATRIC HISTORY: -Previous diagnosis of depression, and alcohol use disorder -Last admitted to the NPU earlier this month in March 2018 for similar confusion with bizarre behavior. PAST FAMILY PSYCHIATRIC HISTORY: -heart disease, denies mental illness SOCIAL HISTORY: -In the process of divorce, smoker, denies alcohol use for years but had a high blood alcohol level as recently as October 2017, denies illicit drugs but was positive for marijuana during his last admission, retired [employer] employee, no disability. Legal- ex parte currently. PAST MEDICAL HISTORY: -Chronic low back pain. Prostate resection due to possible cancer with incontinence. -Sees Dr. Sanam Sosa in [facility] NPU Home Medications Medication Instructions Recorded Confirmed Last Taken Type albuterol sulfate 90 mcg/actuation 2 puff inhalation Q4H PRN 11/18/19 02/12/23 Unknown History aerosol inhaler Shortness Of Breath carbamazepine 200 mg 200 mg PO BID 11/18/19 02/12/23 Unknown History tablet,extended release,12 hr cyanocobalamin (vitamin B-12) 1,000 mcg PO DAILY 11/18/19 02/12/23 Unknown History 1,000 mcg tablet diclofenac sodium 1 % topical gel 2 - 4 g topical QID PRN unknown 11/18/19 02/12/23 Unknown History eszopiclone 3 mg tablet (Lunesta) 3 mg PO BEDTIME 11/18/19 02/12/23 Unknown History folic acid 1 mg tablet 1 mg PO DAILY 11/18/19 02/12/23 Unknown History ibuprofen 200 mg tablet 200 - 400 mg PO DAILY PRN Pain 11/18/19 02/12/23 Unknown History levothyroxine 25 mcg tablet 25 mcg PO DAILY 11/18/19 02/12/23 Unknown History metformin 1,000 mg tablet 1,000 mg PO BID 11/18/19 02/12/23 Unknown History pantoprazole 40 mg tablet,delayed 40 mg PO DAILY 11/18/19 02/12/23 Unknown History release (Protonix) simvastatin 20 mg tablet 40 mg PO DAILY 11/18/19 02/12/23 Unknown History triamcinolone acetonide See Rx Instructions .Route 11/18/19 02/12/23 Unknown History .COMPLEX PRN unknown gabapentin 100 mg capsule 100 mg PO TID 02/12/23 02/12/23 Unknown History temazepam 15 mg capsule (Restoril) 15 mg PO PRN PRN Sleep 02/12/23 02/12/23 Unknown History Allergies Allergy/AdvReac Type Severity Reaction Status Date / Time No Known Allergies Allergy Verified 12/27/19 13:40 PFSH NPU PFSH: Medical History Hypothyroidism Social History Smoking and tobacco status: current every day smoker Mental Status Exam MSE Comments: This is an obese white male looking younger than his stated age in hospital gown with limited grooming but adequate eye contact. Poor hygiene and smell of urine. No abnormal movements except for psychomotor retardation. Cooperative with exam in mild to moderate distress. Speech was decreased rate and volume. Mood described as depressed, affect congruent. Thought process organized. Thought content: Patient denied suicidal or homicidal ideation, there were no delusions reported or noted, he denied any auditory or visual hallucinations. Attention and concentration were intact and memory appeared reliable but none were formally tested. He is alert and oriented x3. Insight and judgment limited impulse control impaired. Vitals/I&O/Wt Last Vital Signs Temp 98.7 F 02/12/23 07:50 Pulse 111 H 02/12/23 07:50 Resp 18 02/12/23 07:50 BP 127/65 02/12/23 07:50 Pulse Ox 92 02/12/23 07:50 O2 Del Method 02/12/23 07:50 02/11/23 02/12/23 02/12/23 22:59 06:59 14:59 Intake Total 1999 Balance 1999 Weight last 48 hrs Weight 102.257 kg Weight 96.162 kg Data NPU 02/12/23 00:40 02/12/23 00:40 A&P Assessment and plan (1) Type 2 diabetes mellitus: (2) Alcohol withdrawal: (3) Acute hepatic encephalopathy: (4) Depression: (5) Hypothyroidism: (6) Suicidal ideation: (7) Alcoholic cirrhosis: (8) Bereavement: (9) Alcohol intoxication: Plan This is a 62-year-old white male with a long history of alcohol addiction with a significant period of sobriety prior to the last week with depression and bereavement who presented to the hospital intoxicated with elevated ammonia but open to initiation of medication and establishment of treatment. 1. Continue current medication. Patient to consider adding Prozac 20 mg p.o. every morning in the morning. We discussed evaluating his sleep medication. 2. Transfer to neuropsychiatric unit for continued mental health treatment after medically stable. 3. We will continue to follow. Attestations NPU Medical Necessity Statement*: N/A. Please see primary team note for medical necessity but patient to be transferred to the neuropsychiatric unit when medically cleared. Coding Level of Care Code Acute Code for [facility] Fwd Diagnoses Type 2 diabetes mellitus E11.9 Alcohol withdrawal F10.939 Acute hepatic encephalopathy K76.82 Depression F32.A Hypothyroidism E03.9 Suicidal ideation R45.851 Alcoholic cirrhosis K70.30 Bereavement Z63.4 Alcohol intoxication F10.929
--- NOTE | 2023-02-12 12:40 | PM.PN ---
Subjective Subjective: Patient was seen this morning, he sitting up enjoying his breakfast, having bilateral tremors of upper extremity, he tells me that he feels down and depressed after his , and he has not drank in over 20 years and after his he is picked up drinking, currently denies any suicidal ideation, denies any homicidal ideation Vitals/I&O/Wt Last Vital Signs Temp 98.6 F 02/12/23 11:41 Pulse 109 H 02/12/23 11:41 Resp 20 H 02/12/23 11:41 BP 144/71 02/12/23 11:41 Pulse Ox 93 02/12/23 11:41 O2 Del Method 02/12/23 11:41 02/11/23 02/12/23 02/12/23 22:59 06:59 14:59 Intake Total 1999 160 / 160 Balance 1999 160 / 160 Weight last 48 hrs Weight 102.257 kg Weight 96.162 kg Physical Exam Const: COMMON NORMALS: no acute distress and patient oriented x3 Resp: COMMON NORMALS: normal respiratory effort, No retractions, No use of accessory muscles and clear to auscultation bilaterally AUSCULTATION: clear to auscultation bilaterally Cardio: COMMON NORMALS: regular rate, regular rhythm, S1 normal heart sound present and S2 normal heart sound present RATE: regular rate RHYTHM: regular rhythm HEART SOUNDS: S1 normal heart sound present and S2 normal heart sound present GI: COMMON NORMALS: Normal to inspection, nondistended, normoactive bowel sounds present and non-tender Extremity: COMMON NORMALS: no pedal edema Neuro: COMMON NORMALS: patient oriented x3 Psych: COMMON NORMALS: denies hallucinations, denies homicidal ideation and denies suicidal ideation Data 02/12/23 00:40 02/12/23 00:40 A&P Assessment and plan (1) Iron deficiency: (2) GI bleed: (3) Hypomagnesemia: (4) Acute hepatic encephalopathy: (5) Diabetes mellitus: (6) Anemia: (7) Alcoholic cirrhosis: (8) History of GI bleed: (9) Suicidal ideation: (10) Hallucinations: (11) Alcohol intoxication: (12) Hypothyroidism: (13) Hepatic encephalopathy: (14) Alcohol withdrawal: (15) Type 2 diabetes mellitus: Plan #Alcohol withdrawal #Suicidal ideation #Hepatic encephalopathy #96-hour hold #Seizures #Diabetes mellitus #GERD #Constipation #Insomnia #COPD? # GI bleed #hyperammonemia #Iron deficiency anemia #Hypomagnesemia #Type 2 diabetes mellitus ? Continue DuoNeb every 6 hours as needed ? Continue levothyroxine ? Continue low-dose intensity sliding scale insulin ? Continue Protonix 40 twice daily, with Protonix ? Continue Senokot 8.5 twice daily ? Continue simvastatin ? Continue thiamine and folic acid -Continue IV Venofer via ? CIWA protocol to be ordered, scheduled Librium 50 every 4 hours ? A1c, 6.8, low-dose sliding scale ? We will hold off on DVT prophylaxis at this time due to anemia - lactulose 20 g bid, titrare to 3 bm/day, continue rifaximin -Hypomagnesemia we will replace -Repeat liver ultrasound -Continue thiamine, folic acid, vitamin B12 ?Consult psychiatry. Full code SCDs for DVT prophylaxis Attestations Medical Necessity Statement*: Patient requires hospitalization, inpatient, for suicidal ideation, alcohol withdrawal, hip attic encephalopathy, hypomagnesemia, Diagnoses Iron deficiency E61.1 GI bleed K92.2 Hypomagnesemia E83.42 Acute hepatic encephalopathy K76.82 Diabetes mellitus E11.9 Anemia D64.9 Alcoholic cirrhosis K70.30 History of GI bleed Z87.19 Suicidal ideation R45.851 Hallucinations R44.3 Alcohol intoxication F10.929 Hypothyroidism E03.9 Hepatic encephalopathy K76.82 Alcohol withdrawal F10.939 Type 2 diabetes mellitus E11.9
[2023-02-12 12:41] LABS: Troponin 5 2HR Delta -0.93 ABS# (0-10)
--- NOTE | 2023-02-12 14:05 | ECG_ITS ---
[facility] Test Date: 2023-02-12 Pat Name: Bernardino Jackson Department: Room: 278 Gender: Male [employer]: : 1960 Requested By: Andrew Amato Order Number: [id number] Avril MD: Gretchen Leung M.D. Measurements Intervals [place] Rate: 104 P: -9 [place]: 153 QRS: 10 QRSD: 79 T: 56 QT: 380 QTc: 501 Interpretive Statements SINUS TACHYCARDIA ABNORMAL RHYTHM ECG Compared to ECG 02/12/2023 11:01:37 No significant changes Electronically Signed On 02-12-2023 21:48:45 CDT by Gretchen Leung M.D. [id number]
[2023-02-12 15:38] LABS: Troponin 5 6HR 8.36 ng/L (0-15)
[2023-02-12 15:43] LABS: Troponin 5 6HR Delta -0.64 ng/L (0-12)
[2023-02-12 16:44] LABS: Glucose Point of Care 177 mg/dL (70-110)
[2023-02-12 20:43] LABS: Glucose Point of Care 195 mg/dL (70-110)
[2023-02-13] VITALS (10 sets, daily range): BP systolic 107–129; BP diastolic 61–73; PULSE 88–98; RESP 15–17; TEMP 36.8–37.1; O2SAT 90–95
[2023-02-13] MEDS: sodium chloride 0.9% 1,000 ML 75 ML IV ×2 (02:52→21:45)
[2023-02-13] MEDS: chlordiazePOXIDE 25 mg Capsule 50 MG PO ×4 (02:52→17:48)
[2023-02-13] MEDS: lactulose oral liq 20 gm/30 mL UDC PO ×2 (02:56→15:29)
[2023-02-13 04:17] LABS: Basophils % 1.1 %; Eosinophils # 0.2 10^3/uL (0.0-0.8); Eosinophils % 5.5 %; Hematocrit 28.9 % (42.0-52.0); Hemoglobin 8.4 g/dL (11.7-16.6); Lymphocytes # 1.1 10^3/uL (0.8-4.8); Lymphocytes % 30.1 %; Mean Corpuscular HGB Conc 29.1 g/dL (30.0-36.0); Mean Corpuscular Hemoglobin 21.2 pg (28.0-34.0); Mean Corpuscular Volume 72.8 fl (80-94); Mean Platelet Volume 9.2 fL (7.4-10.4); Monocytes # 0.3 10^3/uL (0.2-0.9); Monocytes % 7.7 %; Neutrophils # 2.04 10^3/uL (1.8-7.7); Neutrophils % 55.6 %; Nucleated Red Blood Cells % 0 %; Platelet Count 84 10^3/cmm (130-400); Red Blood Count 3.97 10^6/uL (4.1-5.3); Red Cell Distribution Width 20.4 % (12.1-15.1); White Blood Count 3.7 10^3/uL (4.0-10.0)
[2023-02-13 04:22] LABS: Anion Gap 10.9 (5-19); Blood Urea Nitrogen 4 mg/dL (8-23); Calcium 7.5 mg/dL (8.5-10.5); Carbon Dioxide 21 mmol/L (22-29); Chloride 106 mmol/L (98-107); Glomerular Filtration Rate 216.6 mL/min (90-130); Glucose 127 mg/dL (65-115); Osmolality Calculated 278 mOsm/kg (285-295); Sodium 135 mmol/L (136-145)
[2023-02-13 04:23] LABS: Potassium 2.9 mmol/L (3.5-5.1)
[2023-02-13] MEDS: potassium chloride ER 20 mEq Tablet 40 MEQ PO (05:23)
[2023-02-13 06:39] LABS: Glucose Point of Care 147 mg/dL (70-110)
[2023-02-13] MEDS: fluoxetine 20 mg Capsule PO (08:00)
[2023-02-13] MEDS: cyanocobalamin 1,000 mcg Tablet 1000 MCG PO (08:00)
[2023-02-13] MEDS: folic acid 1 mg Tablet PO (08:00)
[2023-02-13] MEDS: magnesium lactate 84 mg Tablet PO (08:00)
[2023-02-13] MEDS: nicotine 14 mg Patch 1 PATCH TRANSDERMA (08:00)
[2023-02-13] MEDS: sennosides 8.6 mg Tablet PO ×2 (08:01→17:48)
[2023-02-13] MEDS: levothyroxine 25 mcg Tablet PO (08:01)
[2023-02-13] MEDS: sucralfate 1 gm Tablet PO ×2 (08:01→21:23)
[2023-02-13] MEDS: multivitamin therapeutic Tablet 1 TAB PO (08:01)
[2023-02-13] MEDS: insulin lispro 100 unit/1 mL SUBCUT ×4 (08:01→21:24)
[2023-02-13] MEDS: thiamine 100 mg Tablet PO (08:01)
[2023-02-13] MEDS: pantoprazole 40 mg SDV IVP ×2 (08:01→20:53)
[2023-02-13] MEDS: iron sucrose 200 MG in sodium chloride 0.9% (100 ml) 100 ML 220 MG IV (10:43)
[2023-02-13 12:07] LABS: Glucose Point of Care 210 mg/dL (70-110)
[2023-02-13] MEDS: lidocaine 1% 5 ML in potassium chloride premix 100 ML 26.25 ML IV (12:49)
[2023-02-13 17:08] LABS: Glucose Point of Care 185 mg/dL (70-110)
--- NOTE | 2023-02-13 17:24 | P.PN_ITS ---
Subjective Subjective: Patient was seen this morning, he sitting up at the side of bed, has no complaints this morning, no fevers, no chills continues to have tremors of bilateral upper extremities, denies auditory or visual hallucinations Vitals/I&O/Wt Last Vital Signs Temp 98.3 F 02/13/23 16:00 Pulse 95 02/13/23 16:00 Resp 17 02/13/23 16:00 BP 123/70 02/13/23 16:00 Pulse Ox 90 02/13/23 16:00 O2 Del Method 02/13/23 08:00 02/13/23 02/13/23 02/13/23 06:59 14:59 22:59 Intake Total 1000 / 2171.2 720 / 720 Balance 1000 / 2171.2 720 / 720 Weight last 48 hrs Weight 102.257 kg Weight 96.162 kg Physical Exam Const: COMMON NORMALS: no acute distress and patient oriented x3 Resp: COMMON NORMALS: normal respiratory effort, No retractions, No use of accessory muscles and clear to auscultation bilaterally AUSCULTATION: clear to auscultation bilaterally Cardio: COMMON NORMALS: regular rate, regular rhythm, S1 normal heart sound present and S2 normal heart sound present RATE: regular rate RHYTHM: regular rhythm HEART SOUNDS: S1 normal heart sound present and S2 normal heart sound present GI: COMMON NORMALS: Normal to inspection, nondistended, normoactive bowel sounds present and non-tender Extremity: COMMON NORMALS: no pedal edema Neuro: COMMON NORMALS: patient oriented x3 Data 02/13/23 03:44 02/13/23 03:44 A&P Assessment and plan (1) Iron deficiency: (2) GI bleed: (3) Hypomagnesemia: (4) Acute hepatic encephalopathy: (5) Diabetes mellitus: (6) Anemia: (7) Alcoholic cirrhosis: (8) History of GI bleed: (9) Suicidal ideation: (10) Hallucinations: (11) Alcohol intoxication: (12) Hypothyroidism: (13) Hepatic encephalopathy: (14) Alcohol withdrawal: (15) Type 2 diabetes mellitus: (16) Pancytopenia: (17) Hypokalemia: (18) Elevated INR: Plan #Alcohol withdrawal #Suicidal ideation #Hepatic encephalopathy #96-hour hold #Seizures #Diabetes mellitus #GERD #Constipation #Insomnia #COPD? # GI bleed #hyperammonemia #Iron deficiency anemia #Hypomagnesemia #Type 2 diabetes mellitus #Pancytopenia #Hypokalemia #Elevated INR ? Continue DuoNeb every 6 hours as needed ? Continue levothyroxine ? Continue low-dose intensity sliding scale insulin ? Continue Protonix 40 twice daily, with Carafate ? Continue Senokot 8.5 twice daily ? Continue simvastatin ? Continue thiamine and folic acid -Continue IV Venofer via ? [facility] protocol to be ordered, scheduled Librium 50 every 8 hours ? A1c, 6.8, low-dose sliding scale ? We will hold off on DVT prophylaxis at this time due to anemia - lactulose 20 g bid, titrare to 3 bm/day, continue rifaximin -Pancytopenia, monitor for fevers -Hypomagnesemia we will replace -Liver ultrasound 1. ? Hepatomegaly with hepatic steatosis and cirrhotic hepatic morphology.? Apparent reversal of flow in the portal vein. Recommend duplex ultrasound of the liver to evaluate vasculature. 2. ? Cholelithiasis with mildly thickened gallbladder wall. The gallbladder appears partially decompressed. If there is clinical concern for acute cholecystitis, consider HIDA scan -Monitor LFTs, alk phos -Continue thiamine, folic acid, vitamin B12 ?Consult psychiatry. Full code SCDs for DVT prophylaxis Attestations Medical Necessity Statement*: Patient requires hospitals of alcohol withdrawal, hepatic encephalopathy, seizures, GI bleed, hyperammonemia, iron deficiency anemia, pancytopenia, hypokalemia Coding Level of Care Code Acute Code for Chg Fwd Diagnoses Iron deficiency E61.1 GI bleed K92.2 Hypomagnesemia E83.42 Acute hepatic encephalopathy K76.82 Diabetes mellitus E11.9 Anemia D64.9 Alcoholic cirrhosis K70.30 History of GI bleed Z87.19 Suicidal ideation R45.851 Hallucinations R44.3 Alcohol intoxication F10.929 Hypothyroidism E03.9 Hepatic encephalopathy K76.82 Alcohol withdrawal F10.939 Type 2 diabetes mellitus E11.9 Pancytopenia D61.818 Hypokalemia E87.6 Elevated INR R79.1
--- NOTE | 2023-02-13 17:30 | USR_ITS ---
PROCEDURE INFORMATION: Exam: US Duplex Artery and Vein of the Abdominal and/or Reproductive Organs. Complete Liver Exam date and time: 02/13/2023 7:23 PM Age: 62 years old Clinical indication: Abnormal findings; Abnormal radiologic finding, abdomen and pelvic vessels; Additional info: Duplex ultrasound of the liver to evaluate vasculature. TECHNIQUE: Imaging protocol: Real-time duplex ultrasound scan of the arterial and venous flow with color Doppler flow and spectral waveform analysis with image documentation. Complete duplex exam focused on the liver and portal vein. Duplex exam was performed to evaluate for vascular conditions. COMPARISON: US liver [id number] 02/12/2023 4:50 PM FINDINGS: Portal venous: Patent portal vein. Diminished flow velocity of 10.5 cm/s. Hepatopetal (towards the liver) flow. The splenic vein flow direction is reversed in the midline. Hepatic artery: Normal waveforms Doppler Perfusion Index: Not calculated Hepatic veins: Patent. Inferior vena cava: IVC is patent. Liver: Hepatic steatosis again visualized. US/US liver [id number] IMPRESSION: Normal portal venous flow direction with decreased velocity and reversed splenic vein flow likely related to portal hypertension.
[2023-02-13 20:12] LABS: Glucose Point of Care 221 mg/dL (70-110)
[2023-02-13 21:09] LABS: Anion Gap 10.5 (5-19); Blood Urea Nitrogen 4 mg/dL (8-23); Calcium 7.7 mg/dL (8.5-10.5); Carbon Dioxide 19 mmol/L (22-29); Chloride 106 mmol/L (98-107); Glomerular Filtration Rate 216.6 mL/min (90-130); Glucose 189 mg/dL (65-115); Osmolality Calculated 276 mOsm/kg (285-295); Potassium 3.5 mmol/L (3.5-5.1); Sodium 132 mmol/L (136-145)
[2023-02-14] VITALS (11 sets, daily range): BP systolic 114–137; BP diastolic 54–79; PULSE 88–102; RESP 16–18; TEMP 36.6–37.3; O2SAT 93–95
[2023-02-14] MEDS: chlordiazePOXIDE 25 mg Capsule 50 MG PO ×2 (01:00→08:23)
[2023-02-14] MEDS: lactulose oral liq 20 gm/30 mL UDC PO ×2 (04:53→16:33)
[2023-02-14 06:11] LABS: Eosinophils # 0.2 10^3/uL (0.0-0.8); Eosinophils % 5.9 %; Hemoglobin 9.1 g/dL (11.7-16.6); Lymphocytes # 1.1 10^3/uL (0.8-4.8); Lymphocytes % 28.1 %; Mean Corpuscular HGB Conc 29.4 g/dL (30.0-36.0); Mean Corpuscular Hemoglobin 21.2 pg (28.0-34.0); Mean Corpuscular Volume 72.3 fl (80-94); Mean Platelet Volume 9.6 fL (7.4-10.4); Monocytes # 0.3 10^3/uL (0.2-0.9); Monocytes % 7.1 %; Neutrophils # 2.25 10^3/uL (1.8-7.7); Neutrophils % 57.4 %; Nucleated Red Blood Cells % 0 %; Platelet Count 81 10^3/cmm (130-400); Red Blood Count 4.29 10^6/uL (4.1-5.3); Red Cell Distribution Width 20.7 % (12.1-15.1); White Blood Count 3.9 10^3/uL (4.0-10.0)
[2023-02-14 06:28] LABS: Glucose Point of Care 133 mg/dL (70-110)
[2023-02-14 06:32] LABS: Ammonia 51 umol/L (16-60)
[2023-02-14 06:33] LABS: Alanine Aminotransferase 10 U/L (0-41); Albumin Level 2.9 g/dL (3.5-5.2); Alkaline Phosphatase 128 U/L (40-130); Anion Gap 10.2 (5-19); Aspartate Amino Transferase 22 U/L (0-40); Blood Urea Nitrogen 4 mg/dL (8-23); Calcium 7.7 mg/dL (8.5-10.5); Carbon Dioxide 21 mmol/L (22-29); Chloride 104 mmol/L (98-107); Globulin 3.4 g/dL (1.3-4.6); Glomerular Filtration Rate 216.6 mL/min (90-130); Glucose 119 mg/dL (65-115); Magnesium 1.5 mg/dL (1.7-2.3); Osmolality Calculated 272 mOsm/kg (285-295); Potassium 3.2 mmol/L (3.5-5.1); Sodium 132 mmol/L (136-145); Total Bilirubin 1.5 mg/dL (0.15-1.2); Total Protein 6.3 g/dL (6.6-8.7)
[2023-02-14] MEDS: phosphorus 250 mg Tablet PO ×2 (08:15→16:33)
[2023-02-14] MEDS: levothyroxine 25 mcg Tablet PO (08:16)
[2023-02-14] MEDS: sucralfate 1 gm Tablet PO ×2 (08:16→20:20)
[2023-02-14] MEDS: thiamine 100 mg Tablet PO (08:16)
[2023-02-14] MEDS: cyanocobalamin 1,000 mcg Tablet 1000 MCG PO (08:16)
[2023-02-14] MEDS: sennosides 8.6 mg Tablet PO ×2 (08:16→16:33)
[2023-02-14] MEDS: multivitamin therapeutic Tablet 1 TAB PO (08:16)
[2023-02-14] MEDS: pantoprazole 40 mg SDV IVP ×2 (08:17→20:20)
[2023-02-14] MEDS: folic acid 1 mg Tablet PO (08:18)
[2023-02-14] MEDS: fluoxetine 20 mg Capsule PO (08:19)
[2023-02-14] MEDS: nicotine 14 mg Patch 1 PATCH TRANSDERMA (08:22)
[2023-02-14] MEDS: lidocaine 1% 5 ML in potassium chloride premix 100 ML 26.25 ML IV (08:48)
[2023-02-14] MEDS: magnesium lactate 84 mg Tablet PO (08:48)
[2023-02-14 11:46] LABS: Glucose Point of Care 181 mg/dL (70-110)
[2023-02-14] MEDS: insulin lispro 100 unit/1 mL SUBCUT ×3 (12:50→20:50)
--- NOTE | 2023-02-14 12:58 | PM.PN ---
Subjective Subjective: Patient was seen this morning, he denies any chest pain, no palpitations, no lightheadedness, dizziness, mild tremor Vitals/I&O/Wt Last Vital Signs Temp 98.5 F 02/14/23 11:33 Pulse 94 02/14/23 11:33 Resp 16 02/14/23 11:33 BP 129/75 02/14/23 11:33 Pulse Ox 93 02/14/23 11:33 O2 Del Method 02/14/23 11:33 02/13/23 02/14/23 02/14/23 22:59 06:59 14:59 Intake Total 1480 / 2200 360 / 360 Balance 1480 / 2200 360 / 360 Physical Exam Const: COMMON NORMALS: no acute distress and patient oriented x3 Resp: COMMON NORMALS: normal respiratory effort, No retractions, No use of accessory muscles and clear to auscultation bilaterally AUSCULTATION: clear to auscultation bilaterally Cardio: COMMON NORMALS: regular rate, regular rhythm, S1 normal heart sound present and S2 normal heart sound present RATE: regular rate RHYTHM: regular rhythm HEART SOUNDS: S1 normal heart sound present and S2 normal heart sound present GI: COMMON NORMALS: Normal to inspection, nondistended, normoactive bowel sounds present and non-tender Extremity: COMMON NORMALS: no pedal edema Neuro: COMMON NORMALS: patient oriented x3 Psych: COMMON NORMALS: mental status grossly normal Data 02/14/23 06:00 02/14/23 06:00 A&P Assessment and plan (1) Iron deficiency: (2) GI bleed: (3) Hypomagnesemia: (4) Acute hepatic encephalopathy: (5) Diabetes mellitus: (6) Anemia: (7) Alcoholic cirrhosis: (8) History of GI bleed: (9) Suicidal ideation: (10) Hallucinations: (11) Alcohol intoxication: (12) Hypothyroidism: (13) Hepatic encephalopathy: (14) Alcohol withdrawal: (15) Type 2 diabetes mellitus: (16) Pancytopenia: (17) Hypokalemia: (18) Elevated INR: Plan #Alcohol withdrawal #Suicidal ideation #Hepatic encephalopathy #96-hour hold #Seizures #Diabetes mellitus #GERD #Constipation #Insomnia #COPD? # GI bleed #hyperammonemia #Iron deficiency anemia #Hypomagnesemia #Type 2 diabetes mellitus #Pancytopenia #Hypokalemia #Elevated INR ? Continue DuoNeb every 6 hours as needed ? Continue levothyroxine ? Continue low-dose intensity sliding scale insulin ? Continue Protonix 40 twice daily, with Carafate ? Continue Senokot 8.5 twice daily ? Continue simvastatin ? Continue thiamine and folic acid -Continue IV Venofer for 5 days ? CIPR protocol to be ordered, scheduled Librium 50 every 8 hours ? A1c, 6.8, low-dose sliding scale ? We will hold off on DVT prophylaxis at this time due to anemia - lactulose 20 g bid, titrare to 3 bm/day, continue rifaximin -Pancytopenia, monitor for fevers -Hypomagnesemia we will replace -Hypophosphatemia we will replace -hypokalemia we will replace 1. ? Hepatomegaly with hepatic steatosis and cirrhotic hepatic morphology.? Apparent reversal of flow in the portal vein. Recommend duplex ultrasound of the liver to evaluate vasculature. 2. ? Cholelithiasis with mildly thickened gallbladder wall. The gallbladder appears partially decompressed. If there is clinical concern for acute cholecystitis, consider HIDA scan -Monitor LFTs, alk phos -Continue thiamine, folic acid, vitamin B12 ?Consult psychiatry. Full code SCDs for DVT prophylaxis Plan for today titrate down Librium to 25 every 8 hours, replace potassium replace phosphorus, replace magnesium, de-escalate fluid therapy, replace iron Attestations Medical Necessity Statement*: Patient requires hospitalization for anemia, thrombocytopenia, pancytopenia, hypomagnesemia, hypophosphatemia, hypokalemia Diagnoses Iron deficiency E61.1 GI bleed K92.2 Hypomagnesemia E83.42 Acute hepatic encephalopathy K76.82 Diabetes mellitus E11.9 Anemia D64.9 Alcoholic cirrhosis K70.30 History of GI bleed Z87.19 Suicidal ideation R45.851 Hallucinations R44.3 Alcohol intoxication F10.929 Hypothyroidism E03.9 Hepatic encephalopathy K76.82 Alcohol withdrawal F10.939 Type 2 diabetes mellitus E11.9 Pancytopenia D61.818 Hypokalemia E87.6 Elevated INR R79.1
[2023-02-14] MEDS: iron sucrose 200 MG in sodium chloride 0.9% (100 ml) 100 ML 220 MG IV (14:03)
[2023-02-14] MEDS: chlordiazePOXIDE 25 mg Capsule PO (16:33)
[2023-02-14 16:51] LABS: Glucose Point of Care 147 mg/dL (70-110)
[2023-02-14] MEDS: sodium chloride 0.9% 1,000 ML 75 ML IV (17:16)
--- NOTE | 2023-02-14 18:43 | W.PM.NPUPNS ---
Subjective NPU Subjective: 62-year-old white [facility] a history of significant alcohol consumption over the past 4 months stemming from the of his of 42 years to cancer. He had acknowledged a history of depressed mood and acknowledged that he was coming around .. He reported that he had been feeling depressed and acknowledged that he had a gun in his car but stated that he had no desire to kill himself. He had reported that his grandson who had been living with him had been extremely worried about his state of mind. He had reported that he had maintained sobriety for greater than 30 years until his succumbed to cancer. He had reported having difficulties with sleep but stated that he slept better last night with the temazepam. He had reported no side effects from his current medications. He had been compliant and pleasant on the medical floor. He had described in some detail his past history of work and stated that he had missed going to work over the last 5 years but stated that he had enjoyed being at home although recently it had brought it out bad memories and some good memories regarding his life. Mental Status Exam MSE Comments: This is an obese white male looking younger than his stated age in hospital gown with limited grooming but adequate eye contact. Poor hygiene, and appeared in moderate distress. There was evidence of moderate psychomotor retardation. Cooperative with exam in mild to moderate distress. Speech was normal in rate and volume today. Mood described as all right., His affect was mood incongruent and restricted in range.. Thought process organized. Thought content: Patient denied suicidal or homicidal ideation, there were no delusions reported or noted, he denied any auditory or visual hallucinations. Attention and concentration were intact and memory appeared reliable but none were formally tested. He is alert and oriented x3. Insight and judgment were limited and impulse control remained impaired. Vitals/I&O/Wt Last Vital Signs Temp 97.8 F 02/14/23 16:00 Pulse 93 02/14/23 16:00 Resp 16 02/14/23 16:00 BP 124/72 02/14/23 16:00 Pulse Ox 93 02/14/23 16:00 O2 Del Method 02/14/23 16:00 02/14/23 02/14/23 02/14/23 06:59 14:59 22:59 Intake Total 1600 / 1600 120 / 1720 Balance 1600 / 1600 120 / 1720 Data NPU 02/14/23 06:00 02/14/23 06:00 A&P Assessment and plan (1) Type 2 diabetes mellitus: (2) Alcohol withdrawal: (3) Acute hepatic encephalopathy: (4) Depression: (5) Hypothyroidism: (6) Suicidal ideation: (7) Alcoholic cirrhosis: (8) Bereavement: (9) Alcohol intoxication: Plan This is a 62-year-old white male with a long history of alcohol addiction with a significant period of sobriety prior to the last week with depression and bereavement who presented to the hospital intoxicated with elevated ammonia but open to initiation of medication and establishment of treatment. 1. Prozac 20mg in am, temazepam 15mg at night routinely. 2. Transfer to neuropsychiatric unit for continued mental health treatment after medically stable. 3. We will continue to follow. Attestations NPU Medical Necessity Statement*: N/A. Please see primary team note for medical necessity but patient to be transferred to the neuropsychiatric unit when medically cleared. Coding Level of Care Code Acute Code for [facility] Diagnoses Type 2 diabetes mellitus E11.9 Alcohol withdrawal F10.939 Acute hepatic encephalopathy K76.82 Depression F32.A Hypothyroidism E03.9 Suicidal ideation R45.851 Alcoholic cirrhosis K70.30 Bereavement Z63.4 Alcohol intoxication F10.929
[2023-02-14 20:23] LABS: Glucose Point of Care 167 mg/dL (70-110)
[2023-02-14] MEDS: temazepam 15 mg Capsule PO (22:36)
[2023-02-15] VITALS (10 sets, daily range): BP systolic 95–125; BP diastolic 56–76; PULSE 86–104; RESP 16–20; TEMP 36.5–36.9; O2SAT 92–98; BMI 32.3
[2023-02-15] MEDS: chlordiazePOXIDE 25 mg Capsule PO ×4 (00:20→20:16)
[2023-02-15] MEDS: lactulose oral liq 20 gm/30 mL UDC PO ×2 (04:22→15:42)
[2023-02-15 05:06] LABS: Basophils % 0.8 %; Eosinophils # 0.2 10^3/uL (0.0-0.8); Eosinophils % 4.4 %; Lymphocytes # 1.1 10^3/uL (0.8-4.8); Lymphocytes % 22.5 %; Mean Corpuscular Hemoglobin 21.5 pg (28.0-34.0); Mean Platelet Volume 9.6 fL (7.4-10.4); Monocytes # 0.4 10^3/uL (0.2-0.9); Monocytes % 8.3 %; Neutrophils # 2.99 10^3/uL (1.8-7.7); Neutrophils % 62.3 %; Nucleated Red Blood Cells % 0.4 %; Platelet Count 90 10^3/cmm (130-400); Red Blood Count 4.19 10^6/uL (4.1-5.3); Red Cell Distribution Width 21.2 % (12.1-15.1); White Blood Count 4.8 10^3/uL (4.0-10.0)
[2023-02-15 05:30] LABS: Alanine Aminotransferase 10 U/L (0-41); Albumin Level 2.8 g/dL (3.5-5.2); Alkaline Phosphatase 124 U/L (40-130); Anion Gap 13.5 (5-19); Aspartate Amino Transferase 22 U/L (0-40); Blood Urea Nitrogen 4 mg/dL (8-23); Calcium 7.8 mg/dL (8.5-10.5); Carbon Dioxide 21 mmol/L (22-29); Chloride 107 mmol/L (98-107); Globulin 3.8 g/dL (1.3-4.6); Glomerular Filtration Rate 216.6 mL/min (90-130); Glucose 109 mg/dL (65-115); Magnesium 1.7 mg/dL (1.7-2.3); Osmolality Calculated 283 mOsm/kg (285-295); Phosphorus 2.4 mg/dL (2.5-4.5); Potassium 3.5 mmol/L (3.5-5.1); Sodium 138 mmol/L (136-145); Total Bilirubin 1.1 mg/dL (0.15-1.2); Total Protein 6.6 g/dL (6.6-8.7)
[2023-02-15 05:46] LABS: Ammonia 83 umol/L (16-60)
[2023-02-15 06:04] LABS: Slide Review Slide Review Perform
[2023-02-15 06:30] LABS: Glucose Point of Care 134 mg/dL (70-110)
--- NOTE | 2023-02-15 07:36 | PC.SOCIAL ---
IMM Update pg 2 of IMM not updated @ this time as patient is on 96 hour hold and not anticipated to DC in the next 24-48 hours.
[2023-02-15] MEDS: sucralfate 1 gm Tablet PO ×2 (09:06→20:15)
[2023-02-15] MEDS: magnesium lactate 84 mg Tablet PO (09:07)
[2023-02-15] MEDS: nicotine 14 mg Patch 1 PATCH TRANSDERMA (09:07)
[2023-02-15] MEDS: phosphorus 250 mg Tablet PO ×2 (09:07→18:30)
[2023-02-15] MEDS: folic acid 1 mg Tablet PO (09:07)
[2023-02-15] MEDS: multivitamin therapeutic Tablet 1 TAB PO (09:07)
[2023-02-15] MEDS: levothyroxine 25 mcg Tablet PO (09:07)
[2023-02-15] MEDS: cyanocobalamin 1,000 mcg Tablet 1000 MCG PO (09:07)
[2023-02-15] MEDS: fluoxetine 20 mg Capsule PO (09:07)
[2023-02-15] MEDS: thiamine 100 mg Tablet PO (09:08)
[2023-02-15] MEDS: sennosides 8.6 mg Tablet PO ×2 (09:08→17:27)
[2023-02-15] MEDS: iron sucrose 200 MG in sodium chloride 0.9% (100 ml) 100 ML 220 MG IV (10:08)
--- NOTE | 2023-02-15 10:22 | PM.PN ---
Subjective Subjective: Patient was seen this morning, sitting to the side of bed, enjoying breakfast, denies any tremors, denies any visual auditory or tactile hallucinations, denies any suicidal ideation, no homicide ideation, denies feeling down depressed or sad Vitals/I&O/Wt Last Vital Signs Temp 97.9 F 02/15/23 08:00 Pulse 90 02/15/23 08:00 Resp 16 02/15/23 08:00 BP 107/69 02/15/23 08:00 Pulse Ox 92 02/15/23 08:00 O2 Del Method 02/15/23 08:00 02/14/23 02/15/23 02/15/23 22:59 06:59 14:59 Intake Total 840.75 / 2440.75 868.333 / 868.333 Balance 840.75 / 2440.75 868.333 / 868.333 Physical Exam Const: COMMON NORMALS: no acute distress and patient oriented x3 Resp: COMMON NORMALS: normal respiratory effort, No retractions, No use of accessory muscles and clear to auscultation bilaterally AUSCULTATION: clear to auscultation bilaterally Cardio: COMMON NORMALS: regular rate, regular rhythm, S1 normal heart sound present and S2 normal heart sound present RATE: regular rate RHYTHM: regular rhythm HEART SOUNDS: S1 normal heart sound present and S2 normal heart sound present GI: COMMON NORMALS: Normal to inspection, nondistended, normoactive bowel sounds present and non-tender Extremity: COMMON NORMALS: no pedal edema Neuro: COMMON NORMALS: patient oriented x3 Psych: COMMON NORMALS: mental status grossly normal Data 02/15/23 04:43 02/15/23 04:43 A&P Assessment and plan (1) Iron deficiency: (2) GI bleed: (3) Hypomagnesemia: (4) Acute hepatic encephalopathy: (5) Diabetes mellitus: (6) Anemia: (7) Alcoholic cirrhosis: (8) History of GI bleed: (9) Suicidal ideation: (10) Hallucinations: (11) Alcohol intoxication: (12) Hypothyroidism: (13) Hepatic encephalopathy: (14) Alcohol withdrawal: (15) Type 2 diabetes mellitus: (16) Pancytopenia: (17) Hypokalemia: (18) Elevated INR: Plan #Alcohol withdrawal #Suicidal ideation #Hepatic encephalopathy #96-hour hold #Seizures #Diabetes mellitus #GERD #Constipation #Insomnia #COPD? # GI bleed #hyperammonemia #Iron deficiency anemia #Hypomagnesemia #Type 2 diabetes mellitus #Pancytopenia #Hypokalemia #Elevated INR ? Continue DuoNeb every 6 hours as needed ? Continue levothyroxine ? Continue low-dose intensity sliding scale insulin ? Continue Protonix 40 twice daily, with Carafate -For anemia, patient is likely going to need an EGD and colonoscopy in a month concerns for slow GI bleed, referral on discharge -Likely has some degree of pancytopenia from alcoholism, bone marrow suppression ? Continue Senokot 8.5 twice daily ? Continue simvastatin ? Continue thiamine and folic acid -Complete IV Venofer today ? CIWA protocol to be ordered, scheduled Librium decreased to 25 every 12 hours and taper from there ? A1c, 6.8, low-dose sliding scale ? We will hold off on DVT prophylaxis at this time due to anemia - lactulose 20 g bid, titrare to 3 bm/day, continue rifaximin -Pancytopenia, monitor for fevers -Hypomagnesemia we will replace -Hypophosphatemia we will replace -hypokalemia we will replace 1. ? Hepatomegaly with hepatic steatosis and cirrhotic hepatic morphology.? Apparent reversal of flow in the portal vein. Recommend duplex ultrasound of the liver to evaluate vasculature. 2. ? Cholelithiasis with mildly thickened gallbladder wall. The gallbladder appears partially decompressed. If there is clinical concern for acute cholecystitis, consider HIDA scan -Monitor LFTs, alk phos -Continue thiamine, folic acid, vitamin B12 ?Consult psychiatry. Full code SCDs for DVT prophylaxis Plan for today last dose of IV Venofer, taper down Librium to 25 every 12 hours, will move to neuropsychiatric unit Attestations Medical Necessity Statement*: Patient requires hot position due to pancytopenia, iron deficiency anemia, alcohol withdrawal, Diagnoses Iron deficiency E61.1 GI bleed K92.2 Hypomagnesemia E83.42 Acute hepatic encephalopathy K76.82 Diabetes mellitus E11.9 Anemia D64.9 Alcoholic cirrhosis K70.30 History of GI bleed Z87.19 Suicidal ideation R45.851 Hallucinations R44.3 Alcohol intoxication F10.929 Hypothyroidism E03.9 Hepatic encephalopathy K76.82 Alcohol withdrawal F10.939 Type 2 diabetes mellitus E11.9 Pancytopenia D61.818 Hypokalemia E87.6 Elevated INR R79.1
[2023-02-15] MEDS: pantoprazole 40 mg SDV IVP (11:03)
[2023-02-15 11:08] LABS: Glucose Point of Care 176 mg/dL (70-110)
--- NOTE | 2023-02-15 11:24 | PC.NURSE ---
This nurse gave report to Alondra in NPU at 1124am prior to transfer.
--- NOTE | 2023-02-15 12:32 | PC.NURSE ---
This nurse transferred patient via wheelchair down to NPU with Horace from [facility]. I informed Alondra in NPU that I had not given patient his 2 units of insulin due to his lunch not being on the floor at the time of transfer. Patient had a BG of 176 and will require 2 units of insulin and a lunch tray. NPU verbalized understanding.
[2023-02-15] MEDS: insulin lispro 100 unit/1 mL SUBCUT ×2 (13:44→19:46)
[2023-02-15 17:06] LABS: Glucose Point of Care 138 mg/dL (70-110)
--- NOTE | 2023-02-15 17:22 | W.PM.NPUPNS ---
Subjective NPU Subjective: 62-year-old white male now admitted to the NPU after transfer from the medical surgical unit. He had reported no alcohol withdrawal symptoms today. He had reported that his mood was improving. He had continue to minimize having thoughts of killing himself. He had endorsed continued sadness regarding the of his that occurred 4 months ago. He had reported having a good visit with his grandson today. He had reported feeling somewhat tired but stated that he had motivation to return home. He had acknowledged that it had been hard to motivate himself to be around his house as it had continued to remind him of his now . Mental Status Exam MSE Comments: This is an obese white male looking younger than his stated age in hospital gown with limited grooming but adequate eye contact. Poor hygiene, and appeared in moderate distress. There was continued evidence of moderate psychomotor retardation. Cooperative with exam in mild to moderate distress. Speech was normal in rate and volume today. Mood described as all right., His affect was mood incongruent and restricted in range. Thought process organized. Thought content: Patient denied suicidal or homicidal ideation, there were no delusions reported or noted, he denied any auditory or visual hallucinations. Attention and concentration were intact and memory appeared reliable but none were formally tested. He is alert and oriented x3. Insight and judgment were limited and impulse control remained impaired. Vitals/I&O/Wt Last Vital Signs Temp 97.7 F 02/15/23 16:00 Pulse 95 02/15/23 16:00 Resp 20 H 02/15/23 16:00 BP 115/67 02/15/23 16:00 Pulse Ox 97 02/15/23 14:44 O2 Del Method 02/15/23 14:44 02/15/23 02/15/23 02/15/23 06:59 14:59 22:59 Intake Total 978.333 / 978.333 Balance 978.333 / 978.333 Weight last 48 hrs Weight 102.257 kg Data NPU 02/15/23 04:43 02/15/23 04:43 A&P Assessment and plan (1) Type 2 diabetes mellitus: (2) Alcohol withdrawal: (3) Acute hepatic encephalopathy: (4) Depression: (5) Hypothyroidism: (6) Suicidal ideation: (7) Alcoholic cirrhosis: (8) Bereavement: (9) Alcohol intoxication: Plan This is a 62-year-old white male with a long history of alcohol addiction with a significant period of sobriety prior to the last week with depression and bereavement who presented to the hospital intoxicated with elevated ammonia but open to initiation of medication and establishment of treatment. 1. Prozac 20mg in am, temazepam 15mg at night routinely. 2. Therapeutic observation 15-minute checks on the unit. 3. Continue with CIWA protocol. 4. Need to encourage individual milieu and group therapy. 5. Recommend sober living treatment at the highest level of care to which the patient is willing to commit. Involuntary Hold Information 96 Hour Hold: 96 Hour Involuntary Admission: Yes 96 Hour Hold Ending Date: 02/18/23 96 Hour Hold Ending Time: 00:15 Attestations NPU Medical Necessity Statement*: Patient hospitalization is medically necessary and the clinically appropriate decision at this time. We will continue to make changes in medications as indicated. He will likely be in the hospital for over 2 midnights with a likely length of stay of 4 to 6 days. Coding Level of Care Code Acute Code for [facility] Diagnoses Type 2 diabetes mellitus E11.9 Alcohol withdrawal F10.939 Acute hepatic encephalopathy K76.82 Depression F32.A Hypothyroidism E03.9 Suicidal ideation R45.851 Alcoholic cirrhosis K70.30 Bereavement Z63.4 Alcohol intoxication F10.929
[2023-02-15] MEDS: pantoprazole DR 40 mg Tablet PO (17:27)
[2023-02-15 19:45] LABS: Glucose Point of Care 170 mg/dL (70-110)
[2023-02-15] MEDS: trazodone 50 mg Tablet PO (20:15)
--- NOTE | 2023-02-15 20:15 | PC.NURSE ---
PRN trazodone for sleep given as ordered per pt request.
[2023-02-16] MEDS: lactulose oral liq 20 gm/30 mL UDC PO ×2 (05:48→15:49)
[2023-02-16 06:00] VITALS: BP 106/68; PULSE 96; RESP 16; TEMP 36.5; O2SAT 94
[2023-02-16 07:45] LABS: Eosinophils # 0.2 10^3/uL (0.0-0.8); Eosinophils % 4.3 %; Hematocrit 33.1 % (42.0-52.0); Hemoglobin 9.7 g/dL (11.7-16.6); Lymphocytes # 1.1 10^3/uL (0.8-4.8); Lymphocytes % 26.8 %; Mean Corpuscular HGB Conc 29.3 g/dL (30.0-36.0); Mean Corpuscular Volume 75.1 fl (80-94); Mean Platelet Volume 9.5 fL (7.4-10.4); Monocytes # 0.4 10^3/uL (0.2-0.9); Monocytes % 8.9 %; Neutrophils # 2.44 10^3/uL (1.8-7.7); Neutrophils % 58.3 %; Nucleated Red Blood Cells % 0 %; Platelet Count 89 10^3/cmm (130-400); Red Blood Count 4.41 10^6/uL (4.1-5.3); Red Cell Distribution Width 22.3 % (12.1-15.1); White Blood Count 4.2 10^3/uL (4.0-10.0)
[2023-02-16] MEDS: sucralfate 1 gm Tablet PO ×2 (08:08→21:23)
[2023-02-16] MEDS: levothyroxine 25 mcg Tablet PO (08:08)
[2023-02-16] MEDS: phosphorus 250 mg Tablet PO ×2 (08:08→17:34)
[2023-02-16] MEDS: folic acid 1 mg Tablet PO (08:08)
[2023-02-16] MEDS: multivitamin therapeutic Tablet 1 TAB PO (08:08)
[2023-02-16] MEDS: fluoxetine 20 mg Capsule PO (08:08)
[2023-02-16] MEDS: thiamine 100 mg Tablet PO (08:08)
[2023-02-16] MEDS: sennosides 8.6 mg Tablet PO ×2 (08:08→17:35)
[2023-02-16] MEDS: nicotine 14 mg Patch 1 PATCH TRANSDERMA (08:08)
[2023-02-16] MEDS: pantoprazole DR 40 mg Tablet PO ×2 (08:08→17:35)
[2023-02-16] MEDS: cyanocobalamin 1,000 mcg Tablet 1000 MCG PO (08:08)
[2023-02-16 08:10] LABS: Alanine Aminotransferase 9 U/L (0-41); Albumin Level 2.8 g/dL (3.5-5.2); Alkaline Phosphatase 118 U/L (40-130); Anion Gap 11.5 (5-19); Aspartate Amino Transferase 21 U/L (0-40); Blood Urea Nitrogen 4 mg/dL (8-23); Calcium 7.9 mg/dL (8.5-10.5); Carbon Dioxide 21 mmol/L (22-29); Chloride 108 mmol/L (98-107); Globulin 3.8 g/dL (1.3-4.6); Glomerular Filtration Rate 167.4 mL/min (90-130); Glucose 118 mg/dL (65-115); Magnesium 1.7 mg/dL (1.7-2.3); Osmolality Calculated 282 mOsm/kg (285-295); Phosphorus 2.6 mg/dL (2.5-4.5); Potassium 3.5 mmol/L (3.5-5.1); Sodium 137 mmol/L (136-145); Total Protein 6.6 g/dL (6.6-8.7)
[2023-02-16 08:20] LABS: Glucose Point of Care 124 mg/dL (70-110)
[2023-02-16] MEDS: magnesium lactate 84 mg Tablet PO (08:37)
[2023-02-16 09:24] LABS: Ammonia 40 umol/L (16-60)
[2023-02-16] MEDS: chlordiazePOXIDE 25 mg Capsule PO ×2 (09:48→21:23)
[2023-02-16 12:26] LABS: Glucose Point of Care 165 mg/dL (70-110)
--- NOTE | 2023-02-16 12:29 | P.PN_ITS ---
Subjective Subjective: Patient was seen this morning, he is ambulating, around the neuropsychiatric unit, he has no complaints Vitals/I&O/Wt Last Vital Signs Temp 97.7 F 02/16/23 06:00 Pulse 96 02/16/23 06:00 Resp 16 02/16/23 06:00 BP 106/68 02/16/23 06:00 Pulse Ox 94 02/16/23 06:00 O2 Del Method Room Air 02/16/23 06:00 Weight last 48 hrs Weight 102.257 kg Physical Exam Const: COMMON NORMALS: no acute distress and patient oriented x3 Resp: COMMON NORMALS: normal respiratory effort, No retractions, No use of accessory muscles and clear to auscultation bilaterally AUSCULTATION: clear to auscultation bilaterally Cardio: COMMON NORMALS: regular rate, regular rhythm, S1 normal heart sound present and S2 normal heart sound present RATE: regular rate RHYTHM: regular rhythm HEART SOUNDS: S1 normal heart sound present and S2 normal heart sound present GI: COMMON NORMALS: Normal to inspection, nondistended, normoactive bowel sounds present and non-tender Extremity: COMMON NORMALS: no pedal edema Neuro: COMMON NORMALS: patient oriented x3 Psych: COMMON NORMALS: mental status grossly normal Data 02/16/23 07:27 02/16/23 07:27 A&P Assessment and plan (1) Iron deficiency: (2) GI bleed: (3) Hypomagnesemia: (4) Acute hepatic encephalopathy: (5) Diabetes mellitus: (6) Anemia: (7) Alcoholic cirrhosis: (8) History of GI bleed: (9) Suicidal ideation: (10) Hallucinations: (11) Alcohol intoxication: (12) Hypothyroidism: (13) Hepatic encephalopathy: (14) Alcohol withdrawal: (15) Type 2 diabetes mellitus: (16) Pancytopenia: (17) Hypokalemia: (18) Elevated INR: Plan #Alcohol withdrawal #Suicidal ideation #Hepatic encephalopathy #96-hour hold #Seizures #Diabetes mellitus #GERD #Constipation #Insomnia #COPD? # GI bleed #hyperammonemia #Iron deficiency anemia #Hypomagnesemia #Type 2 diabetes mellitus #Pancytopenia #Hypokalemia #Elevated INR ? Continue DuoNeb every 6 hours as needed ? Continue levothyroxine ? Continue low-dose intensity sliding scale insulin ? Continue Protonix 40 twice daily, with Carafate -For anemia, patient is likely going to need an EGD and colonoscopy in a month as there are concerns for slow GI bleed, referral on discharge -Likely has some degree of pancytopenia from alcoholism, bone marrow suppression, will have to follow-up with hematology as outpatient ? Continue Senokot 8.5 twice daily ? Continue simvastatin ? Continue thiamine and folic acid -Complete IV Venofer, switch to p.o. ferrous sulfate ? [facility] protocol to be ordered, scheduled Librium decreased to 25 every 12 hours and taper from there, will taper over the next few days ? A1c, 6.8, low-dose sliding scale - lactulose 20 g bid, titrare to 3 bm/day, continue rifaximin -Pancytopenia, monitor for fevers -Hypomagnesemia we will replace -Hypophosphatemia we will replace -hypokalemia we will replace 1. ? Hepatomegaly with hepatic steatosis and cirrhotic hepatic morphology.? Apparent reversal of flow in the portal vein. Recommend duplex ultrasound of the liver to evaluate vasculature. 2. ? Cholelithiasis with mildly thickened gallbladder wall. The gallbladder appears partially decompressed. If there is clinical concern for acute cholecystitis, consider HIDA scan -Monitor LFTs, alk phos -Continue thiamine, folic acid, vitamin B12 ? Currently on n.p.o. Full code SCDs for DVT prophylaxis Plan for today we will continue to peripherally follow, continue to monitor CBC as needed, continue lactulose and rifaximin mean, Librium, Attestations Medical Necessity Statement*: Patient requires position due to alcohol withdrawal, iron deficiency anemia, pancytopenia, GI bleed Coding Level of Care Code Acute Code for [facility] Diagnoses Iron deficiency E61.1 GI bleed K92.2 Hypomagnesemia E83.42 Acute hepatic encephalopathy K76.82 Diabetes mellitus E11.9 Anemia D64.9 Alcoholic cirrhosis K70.30 History of GI bleed Z87.19 Suicidal ideation R45.851 Hallucinations R44.3 Alcohol intoxication F10.929 Hypothyroidism E03.9 Hepatic encephalopathy K76.82 Alcohol withdrawal F10.939 Type 2 diabetes mellitus E11.9 Pancytopenia D61.818 Hypokalemia E87.6 Elevated INR R79.1
[2023-02-16] MEDS: insulin lispro 100 unit/1 mL SUBCUT ×2 (13:09→17:36)
[2023-02-16 14:00] VITALS: BP 96/56; PULSE 91; RESP 18; TEMP 36.4; O2SAT 95
--- NOTE | 2023-02-16 17:21 | P.NPUPN_ITS ---
Subjective NPU Subjective: Patient is a 62-year-old male admitted with depression with suicidal ideation with a plan to use his firearm. The patient had reported improved motivation and stated that he was feeling better. He had reported no side effects from his medication. He had continued to isolate himself on the unit but did appear to attend groups today. Patient had stated that he was not thinking about hurting himself and stated that he was going to buy a new smaller house with the garage to work on rebuilding a car with his grandson who resides with him. Mental Status Exam MSE Comments: This is an obese white male looking younger than his stated age in hospital gown with adequate grooming and improved eye contact. He appeared in no acute distress today. There was continued evidence of moderate psychomotor retardation. He was pleasant and cooperative on exam. Speech was normal in rate rhythm and volume today. Mood described as better., His affect remains restricted today. Thought process organized. Thought content: Patient denied suicidal or homicidal ideation, there were no delusions reported or noted, he denied any auditory or visual hallucinations. Attention and concentration were intact and memory appeared reliable but none were formally tested. He is alert and oriented x3. Insight and judgment were limited and impulse control remained impaired. Vitals/I&O/Wt Last Vital Signs Temp 97.6 F 02/16/23 14:00 Pulse 91 02/16/23 14:00 Resp 18 02/16/23 14:00 BP 96/56 02/16/23 14:00 Pulse Ox 95 02/16/23 14:00 O2 Del Method Room Air 02/16/23 06:00 Weight last 48 hrs Weight 102.257 kg Data NPU 02/16/23 07:27 02/16/23 07:27 A&P Assessment and plan (1) Type 2 diabetes mellitus: (2) Alcohol withdrawal: (3) Acute hepatic encephalopathy: (4) Depression: (5) Hypothyroidism: (6) Suicidal ideation: (7) Alcoholic cirrhosis: (8) Bereavement: (9) Alcohol intoxication: Plan This is a 62-year-old white male with a long history of alcohol addiction with a significant period of sobriety prior to the last week with depression and bereavement who presented to the hospital intoxicated with elevated ammonia but open to initiation of medication and establishment of treatment. 1. Prozac 20mg in am, temazepam 15mg at night routinely. 2. Therapeutic observation 15-minute checks on the unit. 3. Continue with CIWA protocol. 4. Need to encourage individual milieu and group therapy. 5. Recommend sober living treatment at the highest level of care to which the patient is willing to commit. Involuntary Hold Information 96 Hour Hold: 96 Hour Involuntary Admission: Yes 96 Hour Hold Ending Date: 02/18/23 96 Hour Hold Ending Time: 00:15 Attestations NPU Medical Necessity Statement*: Patient hospitalization is medically necessary and the clinically appropriate decision at this time. We will continue to make changes in medications as indicated. His likely length of stay of 4 to 6 days. Coding Level of Care Code Acute Code for [facility] Fwd Diagnoses Type 2 diabetes mellitus E11.9 Alcohol withdrawal F10.939 Acute hepatic encephalopathy K76.82 Depression F32.A Hypothyroidism E03.9 Suicidal ideation R45.851 Alcoholic cirrhosis K70.30 Bereavement Z63.4 Alcohol intoxication F10.929
[2023-02-16 17:30] LABS: Glucose Point of Care 162 mg/dL (70-110)
[2023-02-16] MEDS: ferrous sulfate EC 325 mg Tablet PO (17:35)
[2023-02-16] MEDS: acetaminophen 325 mg Tablet 650 MG PO (21:23)
[2023-02-16 21:59] LABS: Glucose Point of Care 137 mg/dL (70-110)
[2023-02-16 22:00] VITALS: BP 99/58; PULSE 89; RESP 15; TEMP 36.6; O2SAT 95
--- NOTE | 2023-02-17 00:29 | PC.NURSE ---
per evening assessment, Tylenol given for back pain 03/16
[2023-02-17] MEDS: lactulose oral liq 20 gm/30 mL UDC PO (04:56)
--- NOTE | 2023-02-17 05:20 | PC.NURSE ---
pt coughing, denies sob, declines Respiratory treatment, stated I'll be fine, I just need to cough it up , sleep wedge pillow given as RN observed pt sleeping with head propped up on bedroom wall, once given pt stated oh much better no respiratory distress noted. Encouraged pt drink plenty of fluids, and seek staff with needs or concerns.
[2023-02-17 06:00] VITALS: BP 103/67; PULSE 69; RESP 15; TEMP 36.3; O2SAT 92
[2023-02-17 08:27] LABS: Glucose Point of Care 118 mg/dL (70-110)
[2023-02-17] MEDS: fluoxetine 20 mg Capsule PO (09:57)
[2023-02-17] MEDS: pantoprazole DR 40 mg Tablet PO (09:57)
[2023-02-17] MEDS: multivitamin therapeutic Tablet 1 TAB PO (09:57)
[2023-02-17] MEDS: chlordiazePOXIDE 25 mg Capsule PO (09:57)
[2023-02-17] MEDS: sucralfate 1 gm Tablet PO (09:57)
[2023-02-17] MEDS: thiamine 100 mg Tablet PO (09:57)
[2023-02-17] MEDS: levothyroxine 25 mcg Tablet PO (09:57)
[2023-02-17] MEDS: sennosides 8.6 mg Tablet PO (09:57)
[2023-02-17] MEDS: ferrous sulfate EC 325 mg Tablet PO (09:58)
[2023-02-17] MEDS: folic acid 1 mg Tablet PO (09:58)
[2023-02-17] MEDS: phosphorus 250 mg Tablet PO (09:58)
[2023-02-17] MEDS: cyanocobalamin 1,000 mcg Tablet 1000 MCG PO (09:58)
[2023-02-17 12:00] LABS: Glucose Point of Care 124 mg/dL (70-110)
[2023-02-17 14:00] VITALS: BP 92/54; PULSE 81; RESP 18; TEMP 36.6; O2SAT 94
--- NOTE | 2023-02-17 14:21 | DCPLANNER ---
. IMM was given to pt and rights explained and a copy was placed in pts file.
--- NOTE | 2023-02-17 15:20 | W.PM.NPUDCS ---
Diagnoses at Discharge Discharge Diagnosis (1) Type 2 diabetes mellitus: Status: Acute (2) Alcohol withdrawal: Status: Acute (3) Acute hepatic encephalopathy: Status: Acute (4) Depression: Status: Acute (5) Hypothyroidism: Status: Acute (6) Suicidal ideation: Status: Acute (7) Alcoholic cirrhosis: Status: Acute (8) Bereavement: Status: Acute (9) Alcohol intoxication: Status: Acute Reason for Visit Reason for Visit: 96 hour hold Brief History: History of Present Illness Bernardino Jackson is a 62 year old male who presented to the emergency department with the following report: Chief Complaint: Psychiatric Symptoms Stated Complaint: 96 hour hold Time Seen by Provider: 02/12/23 00:11 Source: patient and police Mode of arrival: ambulatory Limitations: no limitations History of Present Illness:?? 62-year-old male who is brought up by police after his daughter placed him on a 96-hour hold he has a history of alcoholism she states he had not drank for some time start drinking heavily again over the last week states has been having hallucinations he is been also having thoughts of killing people she states she had found him in his car with guns he does get to kill his neighbors for sleep with his his had passed recently.? He also stated that he just does not want to live anymore and would like to patient here is denying SI and HI he does appear confused he has a history of cirrhosis likely from his daughter he had recently had a GI bleed as well where he was in [facility] in October history from his daughter and him is very poor though. Associated symptoms: Reports auditory hallucinations and suicidal ideation He was admitted to [facility] for definitive treatment of those issues.? He presented to the emergency department intoxicated and was going to be admitted to the neuropsychiatric unit but his ammonia level was 160 and so it is agreed that he would be evaluated and treated on the [facility] unit first and a psychiatric consult was requested instead.? Patient presents today as a confusing historian as he reports a clear history but it seems to not check out with previous information in his chart.? He has had 3 previous inpatient psychiatric hospitalizations between March 2016 and March 2018 and a report addiction and chaos in his life.? He presented reporting that he had a drinking problem but he stopped drinking 30 years ago.? He reports that his of 40+ years of cancer last fall and that this was coming up on their anniversary and after years of not drinking which he suggested maybe no significant drinking since his 30s he had drank for the last week causing this significant intoxication.? However records suggest that his drinking may have been intermittent.? He was quite tearful as he described trying to keep himself busy since his and doing well when he is able to do that.? He reports a history of being on an antidepressant in the past but he reports that the antidepressant was not effective reporting he was Wellbutrin XL.? We discussed the risk benefits and alternatives of initiating Prozac 20 mg p.o. every morning in the morning and he understood and agreed to consider that.? He also reported that his sleep med had been ineffective and that he was hoping to get help with that and that might assist him in discontinuation of his drinking.? An excerpt of his last inpatient hospitalization is included below for context.? He denies history of bipolar disorder and only reports being very depressed and struggling with grief.? We discussed the fact that if in fact he is bipolar that a mood stabilizer may be necessary in combination with the Prozac.? He was reportedly on Tegretol recently but he was not in any condition to really give specifics on his medications.? We agree we do some research to figure that out. Per his 04/01/2018 [facility] inpatient psychiatric evaluation: Date of Service: April 01, 2018 Chief Complaint: Confusion HPI: The patient is a 57-year-old male with a history of head injury and chronic alcoholism who is admitted on a 96 hour hold for acute confusion/psychosis.? Alcohol level in the emergency room was negative as was urine drug screen.? The patient reports that he is in the hospital because of [employer] for revenue. ? He reports that he is being repeatedly arrested and taken to nursing home overnight or he is required to pay a fine.? Reports that he never warrants going to nursing home.? Reports that he is repeatedly place in the hospital on 96 hour hold with no medication.? Since admission he has been labile, irritable at times, laughing at times, crying at times.? He has apparent hyper mood, racing thoughts, pressured/hyperverbal speech, and significant distractibility/tangentiality.? Patient has been described as exhibiting grandiose behavior since admission.? During interview the patient reports that he has half a million dollars easily in total assets in [place] and has been trying to leave town, from .? He reports that there've been domestic disputes with his and he currently has an ex parte and is not allowed to go on my own property. ? Reports that his and her family are stealing his belongings while he is restricted from going back there.? He is not sure why is he is in the hospital currently.? Reports the police picked him up yet again for no reason and sent him here.? He reports that ultimately he is planning to move to [facility] and hopes his son be able to help him achieve this.? Apparently the patient's sister has been calling reporting that the family is trying to get guardianship. ER physician report was that the patient had been to the emergency room on the on a 96 hour hold with affidavits only reporting that he was agitated and he denied any suicidal/homicidal thoughts or psychosis and was discharged.? 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 Police were called and then EMS who brought the patient back to the hospital yesterday.? ER physician did note that the patient seemed to be confused with loose associations, talking about needing discharge early in the morning to [facility], and he was deemed to pose an imminent threat to himself due to altered mental status.? At that time he was readmitted to the NPU.? This is the patient's third psychiatric admission in the last month.? During prior admissions he was stabilized on Zyprexa 10 mg at bedtime.? However the patient reports that after his last DC, his primary care changed the Zyprexa to lorazepam which lasts longer. ? He reports that his PCP also provides him with prescriptions for Xanax/ Lunesta/ and oxycodone.? He denies any illicit drug use or any alcohol use for years but records indicate that he had a prior assessment in October 2017 with a blood alcohol level of 265 and has a known history of alcohol abuse/dependence and urine drug screen was positive for marijuana during a prior admission. The patient does endorse a lot of stress recently due to frequent re-arrests by police and readmissions to the hospital.? Also reports stress about court next week for divorce and ex parte.? He initially denies that he was even added motel yesterday but then later describes how he is helping the cleaning staff do their jobs and was cleaning his own room.? He reports that he had no towels and had to leave his room naked to get a towel.? He does not feel that this was reason to call the police and reports that the motel just wanted an extra hotel room for some kind of recent tourist event they were hosting. Psychiatric review of systems: Patient reports that recently his mood is a little warmed up. ? Denies depression/ anhedonia/ SI/ HI.? Has been recently irritable, euphoric at times, hyper, pressured speech, racing thoughts, grandiosity, decreased need for sleep only 8 hours in 4 days per patient.? Denies any hallucinations but does endorse paranoia about small town police being after him.? He is generally oriented including knowing hospital name but does miss day/date by 3 days. Past Medical History Past Medical History: PAST PSYCHIATRIC HISTORY: -Previous diagnosis of depression, and alcohol use disorder -Last admitted to the NPU earlier this month in March 2018 for similar confusion with bizarre behavior. PAST FAMILY PSYCHIATRIC HISTORY: -heart disease, denies mental illness SOCIAL HISTORY: -In the process of divorce, smoker, denies alcohol use for years but had a high blood alcohol level as recently as October 2017, denies illicit drugs but was positive for marijuana during his last admission, retired [employer] employee, no disability. Legal- ex parte currently. PAST MEDICAL HISTORY: -Chronic low back pain.? Prostate resection due to possible cancer with incontinence. -Sees Dr. Sanam Sosa in [facility] Course Hospital Course Discharge Summary: During the hospitalization, patient had routine laboratory studies which were within normal limits except for few outliers. Additionally there was a general medical evaluation which was also within normal limits and revealed no new acute processes. At the time of discharge, lethality was denied and psychosis was resolving. Mood and anxiety were well managed. Patient endorsed a plan to avoid all drugs of abuse and follow-up with the aftercare recommendations of the treatment team. Patient was evaluated and deemed to be absent credible lethality, and had achieved the maximum benefit from an inpatient hospitalization, so was discharged. He was transferred to NPU after treatment for acute encephalopathy while on the medical floor. Involuntary Hold Information 96 Hour Hold: 96 Hour Involuntary Admission: Yes 96 Hour Hold Ending Date: 02/18/23 96 Hour Hold Ending Time: 00:15 Mental Status Exam MSE Comments: This is an obese white male looking younger than his stated age in hospital gown with adequate grooming and improved eye contact. He appeared in no acute distress today. There was continued evidence of mild psychomotor retardation. He was pleasant and cooperative on exam. Speech was normal in rate rhythm and volume today. Mood described as better., His affect was less restricted today. Thought process organized. Thought content: Patient denied suicidal or homicidal ideation, there were no delusions reported or noted, he denied any auditory or visual hallucinations. Attention and concentration were intact and memory appeared reliable but none were formally tested. He is alert and oriented x3. Insight and judgment were limited and impulse control remained impaired. Discharge Data Studies Completed and Pending: Completed Studies During Hospitalization Category Date Time Status CT head wo con* [id number] 0450 Stat Cat Scan 02/12/23 00:29 Completed CXRP [XR chest 1V portable [id number]] S tat Exams 02/12/23 00:29 [place] liver 31653 Ro utine Ultrasound 02/12/23 08:32 Completed US liver [id number] Ro utine Ultrasound 02/13/23 17:30 Completed Radiology Impressions Chest X-Ray 02/12/23 00:29 IMPRESSION: No acute findings. Head CT 02/12/23 00:29 IMPRESSION: Negative for intracranial hemorrhage or mass effect. Liver Ultrasound 02/13/23 17:30 IMPRESSION: Normal portal venous flow direction with decreased velocity and reversed splenic vein flow likely related to portal hypertension. Laboratory Results WBC 4.2 10^3/uL (4.0- 10.0) 02/16/23 07:27 RBC 4.41 10^6/uL (4.1 -5.3) 02/16/23 07:27 Hgb 9.7 g/dL (11.7-16 .6) L 02/16/23 07:27 Hct 33.1 % (42.0-52.0 ) L 02/16/23 07:27 MCV 75.1 fl (80-94) L 02/16/23 07:27 MCH 22.0 pg (28.0-34. 0) L 02/16/23 07:27 MCHC 29.3 g/dL (30.0-3 6.0) L 02/16/23 07: RDW 22.3 % (12.1-15.1 ) H 02/16/23 07:27 Plt Count 89 10^3/cmm (130- 400) L 02/16/23 07: MPV 9.5 fL (7.4-10.4) 02/16/23 07: Neut % (Auto) 58.3 % 02/16/23 07: Lymph % (Auto) 26.8 % 02/16/23 07: Fleming % (Auto) 8.9 % 02/16/23 07: Eos % (Auto) 4.3 % 02/16/23 07: Baso % (Auto) 1.0 % 02/16/23 07: Neut # (Auto) 2.44 10^3/uL (1.8 -7.7) 02/16/23 07: Lymph # (Auto) 1.1 10^3/uL (0.8- 4.8) 02/16/23 07:27 Fleming # (Auto) 0.4 10^3/uL (0.2- 0.9) 02/16/23 07: Eos # (Auto) 0.2 10^3/uL (0.0- 0.8) 02/16/23 07: Baso # (Auto) 0.0 10^3/uL (0.0- 0.1) 02/16/23 07: Nucleated RBC % (a uto) 0 % 02/16/23 07: Nucleated RBCs # 0.0 /100WBC 02/16/23 07: PT 17.30 SECONDS (12 .1-14.9) H 02/12/23 00:40 INR 1.37 (0.8-1.2) H 02/12/23 00:40 Sodium 137 mmol/L (136-1 45) 02/16/23 07:27 Potassium 3.5 mmol/L (3.5-5 .1) 02/16/23 07: Chloride 108 mmol/L (98-10 7) H 02/16/23 07: Carbon Dioxide 21 mmol/L (22-29) L 02/16/23 07:27 Anion Gap 11.5 (5-19) 02/16/23 07:27 BUN 4 mg/dL (8-23) L 02/16/23 07:27 Creatinine 0.5 mg/dL (0.7-1. 2) L 02/16/23 07:27 GFR Calculation 167.4 mL/min (90- 130) H 02/16/23 07:27 Glucose 118 mg/dL (65-115 ) H 02/16/23 07:27 POC Glucose 124 mg/dL (70-110 ) H 02/17/23 11:58 Estimat Average Gl ucose 148 02/12/23 06:30 Hemoglobin A1c 6.8 % (4.0-6.0) H 02/12/23 06:30 Calculated Osmolal ity 282 mOsm/kg (285- 295) L 02/16/23 07:27 Calcium 7.9 mg/dL (8.5-10 .5) L 02/16/23 07:27 Phosphorus 2.6 mg/dL (2.5-4. 5) 02/16/23 07:27 Magnesium 1.7 mg/dL (1.7-2. 3) 02/16/23 07:27 Iron 20 ug/dL (59-158) L 02/12/23 06:30 Iron Cancelled 02/12/23 06:30 TIBC 257 mcg/dl 02/12/23 06:30 % Saturation 7.7 % (20-50) L 02/12/23 06:30 Unsat Iron Binding 237 ug/dL (112-34 7) 02/12/23 06:30 Ferritin 11 ng/mL (30-400) L 02/12/23 06:30 Total Bilirubin 1.0 mg/dL (0.15-1 .2) 02/16/23 07:27 AST 21 U/L (0-40) 02/16/23 07:27 ALT 9 U/L (0-41) 02/16/23 07:27 Alkaline Phosphata se 118 U/L (40-130) 02/16/23 07:27 Ammonia 40 umol/L (16-60) 02/16/23 08:54 Troponin T Baselin e 9 ng/L (0-15) 02/12/23 09:03 Troponin T 120 Min tanacross 8.17 ng/L (0-15) 02/12/23 11:32 Delta Troponin T -0.93 ABS# (0-10) L 02/12/23 11:32 Troponin T Hi Sens 6Hr 8.36 ng/L (0-15) 02/12/23 15:07 Troponin T Hi Sens 6Hr Delta -0.64 ng/L (0-12) L 02/12/23 15:07 NT-Pro-B Natriuret Pep 36 pg/mL (0-125) 02/12/23 00:40 Total Protein 6.6 g/dL (6.6-8.7 ) 02/16/23 07:27 Albumin 2.8 g/dL (3.5-5.2 ) L 02/16/23 07:27 Globulin 3.8 g/dL (1.3-4.6 ) 02/16/23 07:27 Triglycerides 219 mg/dL (0-150) H 02/12/23 06:30 Cholesterol 178 mg/dL (0-200) 02/12/23 06:30 LDL Cholesterol, C alc 92 mg/dL (50-129) 02/12/23 06:30 HDL Cholesterol 42 mg/dL (60-100) L 02/12/23 06:30 LDL/HDL Ratio 2.19 RATIO (0.00- 3.22) 02/12/23 06:30 Cholesterol/HDL Ra ld 4.24 mg/dL (1.0-5 .00) 02/12/23 06:30 Vitamin B12 323 pg/mL (232-12 45) 02/12/23 06:30 Procalcitonin 0.05 ng/mL (0-0.5 ) 02/12/23 06:30 TSH 1.01 uIU/mL (0.27 -4.20) 02/12/23 06:30 Urine Color Yellow (Yellow) 02/12/23 00:26 Urine Appearance Clear (CLEAR) 02/12/23 00:26 Urine pH 5 (5-7) 02/12/23 00:26 Ur Specific Gravit y 1.010 (1.005-1.0 30) 02/12/23 00:26 Urine Protein Neg (Negative) 02/12/23 00:26 Urine Glucose (UA) 4+ (Normal) H 02/12/23 00:26 Urine Ketones 1+ (Negative) H 02/12/23 00:26 Urine Blood Neg (Negative) 02/12/23 00:26 Urine Nitrate Negative (Negati ve) 02/12/23 00:26 Urine Bilirubin Neg (Negative) 02/12/23 00:26 Urine Urobilinogen 1 mg/dL (Negative ) H 02/12/23 00:26 Ur Leukocyte Denise ase Negative (Negati ve) 02/12/23 00:26 Salicylates < 0.3 mg/dL (3-10 ) L 02/12/23 00:40 Urine Opiates Scre en Negative ng/mL (N egative) 02/12/23 00:26 Acetaminophen < 5.0 ug/mL (10-3 0) L 02/12/23 00:40 Ur Barbiturates Sc reen Negative ng/mL (N egative) 02/12/23 00:26 Ur Phencyclidine S crn Negative ng/mL (N egative) 02/12/23 00:26 Ur Amphetamines Sc reen Negative ng/mL (N egative) 02/12/23 00:26 U Benzodiazepines Scrn Positive ng/mL (N egative) H 02/12/23 00:26 Urine Cocaine Scre en Negative ng/mL (N egative) 02/12/23 00:26 U Marijuana (THC) Screen Negative ng/mL (N egative) 02/12/23 00:26 Ethyl Alcohol 291 mg/dL (0-10) H 02/12/23 00:40 Hepatitis A IgM Ab Non-reactive (No nreactive) 02/12/23 00:40 Hep Bs Antigen Non-reactive (No nreactive) 02/12/23 00:40 Hep B Core IgM Ab Non-reactive (No nreactive) 02/12/23 00:40 Hepatitis C Antibo dy Non-reactive (No nreactive) 02/12/23 00:40 HIV 1&2 Ab & HIV 1 Ag Non-reactive (No n-Reactiv) 02/12/23 00:40 HIV 1&2 Antibody Non-reactive (No n-Reactiv) 02/12/23 00:40 SARS-CoV-2 Ag (Rap id) negative (Negati ve) 02/12/23 00:59 Vitals: Last Vital Signs Temp 97.4 F L 02/17/23 06:00 Pulse 69 02/17/23 06:00 Resp 15 02/17/23 06:00 BP 103/67 02/17/23 06:00 Pulse Ox 92 02/17/23 06:00 O2 Del Method Room Air 02/17/23 09:07 Discharge Plan Discharge Patient Disposition: Home Condition: Stable Prescriptions: New Vitamin B-1 (mononitrate) 100 mg Tablet 100 mg PO DAILY 30 Days Qty: 30 0RF sucralfate 1 gram Tablet 1 g PO Q12H Qty: 60 1RF Xifaxan 550 mg Tablet 550 mg PO BID 30 Days Qty: 60 1RF pantoprazole 40 mg Tablet,Delayed Release (Dr/Ec) 40 mg PO BID 30 Days Qty: 60 1RF lactulose 20 gram/30 mL Solution 20 g PO Q12H 30 Days Qty: 1800 1RF fluoxetine 20 mg Capsule 20 mg PO DAILY 30 Days Qty: 30 1RF ferrous sulfate 325 mg (65 mg iron) Tablet,Delayed Release (Dr/Ec) 325 mg PO BIDWM 30 Days Qty: 60 1RF chlordiazepoxide HCl 25 mg Capsule 25 mg PO .qd Qty: 5 0RF Rx Instructions: Take one tablet daily for 5 days then discontinue. Continued cyanocobalamin (vitamin B-12) 1,000 mcg Tablet 1,000 mcg PO DAILY levothyroxine 25 mcg Tablet 25 mcg PO DAILY simvastatin 20 mg Tablet 40 mg PO DAILY metformin 1,000 mg Tablet 1,000 mg PO BID folic acid 1 mg Tablet 1 mg PO DAILY albuterol sulfate 90 mcg/actuation Hfa Aerosol Inhaler 2 puff INHALATION Q4H PRN (Reason: Shortness Of Breath) triamcinolone acetonide See Rx Instructions .ROUTE .COMPLEX PRN (Reason: unknown) Rx Instructions: apply topically to rash behind ear bid as needed gabapentin 100 mg Capsule 100 mg PO TID Discontinued carbamazepine 200 mg Tablet Extended Release 12 Hr 200 mg PO BID pantoprazole [Protonix] 40 mg Tablet,Delayed Release (Dr/Ec) 40 mg PO DAILY ibuprofen 200 mg Tablet 200 - 400 mg PO DAILY PRN (Reason: Pain) eszopiclone [Lunesta] 3 mg Tablet 3 mg PO BEDTIME diclofenac sodium 1 % Gel 2 - 4 g TOPICAL QID PRN (Reason: unknown) Restoril 15 mg Capsule 15 mg PO PRN PRN (Reason: Sleep) Discharge Orders: Discharge Order (Routine); Ordered 02/17/23 Ordered By: Miguel Alvarez Referrals: [facility] [Outside] - 02/24/23 11:30 am (Initial appointment for 02/24/23 @ 11:30 am.) Mahin Maher DO [Physician] - 1 month (colonsocopy) Sanam Sosa DO [Primary Care Provider] - 02/21/23 9:00 am (9am [facility] Discharge Diet: Usual diet Discharge Activity: Resume usual activity Patient Instructions: Opioid Safety Discharge Attestations NPU Time Spent in Discharge Care*: greater than 30 min Specific Discharge Activities: Specific discharge activities: educating patient, documenting/other paperwork and evaluating patient/reviewing data Coding Level of Care Code Acute Chg [facility] note Diagnoses Type 2 diabetes mellitus E11.9 Alcohol withdrawal F10.939 Acute hepatic encephalopathy K76.82 Depression F32.A Hypothyroidism E03.9 Suicidal ideation R45.851 Alcoholic cirrhosis K70.30 Bereavement Z63.4 Alcohol intoxication F10.929
[2023-02-17 16:24] VITALS: BP 103/67; PULSE 69; RESP 15; TEMP 36.3; O2SAT 92
--- NOTE | 2023-02-17 16:35 | PC.NURSE ---
Lactulose not indicated as patient is having loose stools
== END 2023-02-17 17:24 | disposition home or self-care (01) | DRG 442 ==
LOC: ER 02:21 → NP 03:57 → MEDSURG 05:07 → NP 02-16 11:22
PROVIDERS: Family Medicine; Internal Medicine; Admitting Provider Psychiatry & Neurology Psychiatry; Emergency Provider Emergency Medicine; PCP Family Medicine; Visit Provider Psychiatry & Neurology Psychiatry
DX: K76.82 Hepatic encephalopathy (principal); D61.818 Other pancytopenia; F10.239 Alcohol dependence with withdrawal, unspecified; R44.0 Auditory hallucinations; R45.851 Suicidal ideations; E72.20 Disorder of urea cycle metabolism, unspecified; F32.A Depression, unspecified; K70.30 Alcoholic cirrhosis of liver without ascites; R45.850 Homicidal ideations; F10.229 Alcohol dependence with intoxication, unspecified; Y90.8 Blood alcohol level of 240 mg/100 ml or more; K59.00 Constipation, unspecified; K21.9 Gastro-esophageal reflux disease without esophagitis; K76.0 Fatty (change of) liver, not elsewhere classified; G47.00 Insomnia, unspecified; E03.9 Hypothyroidism, unspecified; E83.42 Hypomagnesemia; E87.6 Hypokalemia; E83.39 Other disorders of phosphorus metabolism; E11.9 Type 2 diabetes mellitus without complications; R56.9 Unspecified convulsions; D50.9 Iron deficiency anemia, unspecified; F17.200 Nicotine dependence, unspecified, uncomplicated; Z63.4 Disappearance and death of family member; Z87.19 Personal history of other diseases of the digestive system; Z79.84 Long term (current) use of oral hypoglycemic drugs
CPT/HCPCS: 36415; 36416; 70450; 71045; 76705; 80048; 80053; 80061; 80074; 80306; 80307; 81003; 82140; 82607; 82728; 82962; 83036; 83540; 83550; 83735; 83880; 84100; 84145; 84443; 84484; 85025; 85610; 87426; 87806; 93005; 94640; 96361; 96372; 96374; 97165; 99285; C9113; J1756; J1815; J2060; J3411; J3475; J3480; J3490; J7030

== ENCOUNTER 2023-09-15 12:12 | Emergency (ER) | payer MEDICARE, SELFPAY ==
[2023-09-15 12:20] VITALS: BP 129/77; PULSE 96; RESP 15; TEMP 36.5; O2SAT 96; BMI 29.4
--- NOTE | 2023-09-15 12:27 | ED_ITS ---
HPI - Trauma General: Chief Complaint: Trauma Stated Complaint: hurt Right side upper abdomin Time Seen by Provider: 09/15/23 12:24 Source: patient Mode of arrival: ambulatory Limitations: no limitations History of Present Illness: 63-year-old male states that 5 days ago he fell off the back of his truck landed on his trailer hitch hit him in his right lower ribs states he has had right sided rib pain since then its worse and he states much worse with movement along with deep breaths he denies any abdominal pain denies any head injury rates his pain currently an 8 out of 10. Associated symptoms: Reports chest pain; Denies abdominal pain, back pain, chills, dental pain, fever(s), nausea or vomiting Review of Systems Const: Denies: fever(s), chills, body aches or change in appetite ENMT: Denies: throat pain or dental pain Card: Reports: chest pain Resp: Denies: dyspnea GI: Denies: abdominal pain, nausea, vomiting or diarrhea : Denies: dysuria Musc: Denies: neck pain or back pain Skin/Breast: Denies: rash All/Imm: Denies: urticaria PFSH ED PFSH: Medical History Hypothyroidism Social History Smoking and tobacco/nicotine status: current every day tobacco/nicotine user Physical Exam Const: COMMON NORMALS: no acute distress, patient oriented x3 and healthy appearing HENMT: COMMON NORMALS: normocephalic and atraumatic HEAD & SCALP: normocephalic and atraumatic Eye: COMMON NORMALS: Equal, round and reactive pupils present and EOMs intact bilaterally PUPIL: Yes Equal, round and reactive pupils present Neck/C-Spine: COMMON NORMALS: full ROM and supple Chest: COMMONS NORMALS: normal inspection of the chest OTHER: Point tender over right lower rib Resp: COMMON NORMALS: normal respiratory effort, No retractions, No use of accessory muscles and clear to auscultation bilaterally AUSCULTATION: clear to auscultation bilaterally Cardio: COMMON NORMALS: regular rate, regular rhythm and No murmurs present (Cardio) RATE: regular rate RHYTHM: regular rhythm GI: COMMON NORMALS: Normal to inspection, nondistended, normoactive bowel sounds present, Soft to palpation, non-tender and no masses PALPATION: Yes Soft to palpation Extremity: COMMON NORMALS: normal to inspection and full ROM Neuro: COMMON NORMALS: patient oriented x3, moves all extremities and no focal motor deficits Psych: COMMON NORMALS: mental status grossly normal, Normal thought process present and cooperative THOUGHT PROCESS: Normal thought process present Skin: COMMON NORMALS: no rashes or lesions noted and no wounds GENERAL SKIN EXAM: no rashes or lesions noted Course Vital Signs: Vital signs: Vital Signs Temperature 97.7 F 09/15/23 12:20 Pulse Rate 96 09/15/23 12:20 Respiratory Rate 15 09/15/23 12:20 Blood Pressure 129/77 09/15/23 12:20 Pulse Oximetry 96 09/15/23 12:20 Oxygen Delivery Me thod Room Air 09/15/23 12:20 MDM - Trauma Medical Decision Making Patient presents here with rib contusion from a fall x-ray here shows no fractures we will place him on pain meds he is to follow-up with PCP and return if worsening he understands agrees to plan. Medical Records I reviewed the patient's medical records. All radiology interpretation(s) finalized by discharge Discharge Plan Discharge Patient Disposition: Home Clinical Impression: Chest wall contusion Condition: Stable Prescriptions: New hydrocodone-acetaminophen 5-325 mg tablet 1 tab PO Q6H PRN (Reason: pain) Qty: 14 0RF Naprosyn 500 mg tablet 500 mg PO BID PRN (Reason: pain) Qty: 20 0RF No Action metformin 1,000 mg Tablet 1,000 mg PO BID gabapentin 100 mg Capsule 100 mg PO TID potassium chloride 10 mEq tablet extended release 10 meq PO BID temazepam 15 mg capsule 15 mg PO BEDTIME PRN (Reason: Sleep) Discharge Orders: Discharge ED (Routine); Ordered 09/15/23 Ordered By: Karla Rodriguez Referrals: Sanam Sosa DO [Primary Care Provider] - 1-3 days Discharge Diet: Advance as tolerated Discharge Activity: Resume usual activity Patient Instructions: Chest Wall Pain (ED), Rib Contusion (ED) Coding Level of Care Code ED [employer] Administrator for Lamin Pink
--- NOTE | 2023-09-15 12:27 | XR_ITS ---
WS: [id number] Chest with right rib detail, 5 views, 09/15/2023 Clinical Data: injury Comparison: Portable chest, 02/12/2023, chest with bilateral rib detail, 05/27/2017 Findings: The lungs show no nodules, masses, or effusions. The heart is normal. No pneumonia or pneumothorax is seen. There are old left sixth and seventh rib fractures. The aortic arch and descending thoracic aorta norma w tortuosity. The right ribs are intact. No rib fractures seen. No subcutaneous emphysema is present. Impression: 1. Atherosclerosis. 2. Old left rib fractures. 3. Negative for right rib fractures.
[2023-09-15] MEDS: HYDROcodone-acetaminophen 5-325 mg Tablet 1 TAB PO (12:36)
== END 2023-09-15 14:00 | disposition home or self-care (01) ==
PROVIDERS: Emergency Provider Emergency Medicine; PCP Family Medicine
DX: S20.211A Contusion of right front wall of thorax, initial encounter (principal); W17.89XA Other fall from one level to another, initial encounter; Z72.0 Tobacco use; Z79.84 Long term (current) use of oral hypoglycemic drugs
CPT/HCPCS: 71101; 99283

== ENCOUNTER → 2023-10-05 14:59 | Outpatient (BNVA) | payer MEDICARE, SELFPAY | PROVIDERS: PCP Family Medicine; Visit Provider Dermatology | DX: L21.8 Other seborrheic dermatitis (principal); L40.0 Psoriasis vulgaris; D48.5 Neoplasm of uncertain behavior of skin; L57.0 Actinic keratosis | CPT/HCPCS: 11102; 17000; 99204 ==

== ENCOUNTER → 2023-10-19 08:04 | Outpatient (BNVA) | payer MEDICARE, SELFPAY | PROVIDERS: PCP Family Medicine; Visit Provider Dermatology | DX: C44.319 Basal cell carcinoma of skin of other parts of face (principal) | CPT/HCPCS: 14041; 17311 ==

== ENCOUNTER 2025-02-27 23:30 | Inpatient (IN) | payer MEDICARE, SELFPAY ==
[2025-02-27 23:31] VITALS: BP 104/63; PULSE 111; RESP 90; TEMP 35.7; BMI 26.8
--- NOTE | 2025-02-27 23:41 | CTR_ITS ---
PROCEDURE INFORMATION: Exam: CT Head Without Contrast Exam date and time: 02/28/2025 12:07 AM Age: 64 years old Clinical indication: Alteration of consciousness; Somnolence (drowsiness); Additional info: AMS TECHNIQUE: Imaging protocol: Computed tomography of the head without contrast. Radiation optimization: All CT scans at this facility use at least one of these dose optimization techniques: automated exposure control; mA and/or kV adjustment per patient size (includes targeted exams where dose is matched to clinical indication); or iterative reconstruction. COMPARISON: CT head wo con* [id number] 02/12/2023 12:46 AM RADIATION DOSE METRICS: Total DLP (mGy-cm): 1284.48 FINDINGS: Brain: No acute intracranial hemorrhage, mass effect or midline shift. White matter hypodensities most likely from chronic microangiopathy. Cerebral ventricles: Ex vacuo expansion of the ventricles due to volume loss. Paranasal sinuses: Visualized sinuses are unremarkable. No fluid levels. Mastoid air cells: Partial left mastoid effusion. Bones: No acute bony findings. Soft tissues: Unremarkable. CT/CT head wo con* [id number] IMPRESSION: No acute intracranial findings.
--- NOTE | 2025-02-27 23:41 | XRR_ITS ---
PROCEDURE INFORMATION: Exam: XR Chest Exam date and time: 02/27/2025 11:48 PM Age: 64 years old Clinical indication: Other: AMS TECHNIQUE: Imaging protocol: Radiologic exam of the chest. Views: 1 view. COMPARISON: CR XR ribs RT mn 3V w CXR1V [id number] 09/15/2023 12:37 PM FINDINGS: Lungs: No consolidation. Pleural spaces: No pleural effusion. No pneumothorax. Heart/Mediastinum: No cardiomegaly. Bones/joints: No acute findings. XR/XR chest 1V portable [id number] IMPRESSION: No acute chest findings.
--- NOTE | 2025-02-27 23:41 | PC.NURSE ---
Addendum entered by Chrissy Carballo RN 02/27/25 23:49: each bottle was initially filled with 30 tablets/capsules Original Note: pill bottles brought in by ems eszopiclone 2mg tablet -take 1 tablet by mouth at bedtime PRN for insomnia - filled 02/12/25, 5 tablets left temazepam 15mg capsules - take 1 capsule PO at bedtime PRN for insomnia - filled 10/19/24 - no capsules left additional temazepam bottles - all same doses, instructions - filled 09/05/24 -no capsules left - filled 12/14/24 - no capsules left - filled 01/24/25 - no capsules left
--- NOTE | 2025-02-27 23:42 | ECG_ITS ---
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 Measurements Intervals [place] Rate: 110 P: 78 WV: 151 QRS: 70 QRSD: 85 T: 76 QT: 350 QTc: 474 Interpretive Statements SINUS TACHYCARDIA ABNORMAL RHYTHM ECG Compared to ECG 02/12/2023 14:05:43 No significant changes Electronically Signed On 03-01-2025 10:38:10 CDT by Gretchen Leung M.D. [email or web address] [id number]
[2025-02-27 23:57] VITALS: PULSE 105; RESP 20; O2SAT 96
[2025-02-27 23:57] LABS: INR 1.68 (0.8-1.2)
[2025-02-27 23:59] LABS: Partial Thromboplastin Time 39.1 SECONDS (23.9-36.7)
[2025-02-28] VITALS (10 sets, daily range): BP systolic 87–122; BP diastolic 54–65; PULSE 94–112; RESP 16–19; TEMP 36.7–37.2; O2SAT 94–97; BMI 25.1
[2025-02-28 00:01] LABS: Alanine Aminotransferase 34 U/L (0-41); Albumin Level 2.3 g/dL (3.5-5.2); Alkaline Phosphatase 46 U/L (40-130); Anion Gap 13.4 (5-19); Aspartate Amino Transferase 197 U/L (0-40); Blood Urea Nitrogen 25 mg/dL (8-23); Calcium 7.8 mg/dL (8.5-10.5); Carbon Dioxide 27 mmol/L (22-29); Chloride 98 mmol/L (98-107); Creatinine Clr Calc Pharmacy 88.7644; Globulin 3.7 g/dL (1.3-4.6); Glomerular Filtration Rate 84.4 mL/min (90-130); Glucose 95 mg/dL (65-115); Magnesium 1.8 mg/dL (1.7-2.3); Osmolality Calculated 284 mOsm/kg (285-295); Potassium 3.4 mmol/L (3.5-5.1); Sodium 135 mmol/L (136-145); Total Bilirubin 4.5 mg/dL (0.15-1.2)
[2025-02-28 00:03] LABS: Acetaminophen < 5.0 ug/mL (10-30); Alcohol Level < 10 mg/dL (0-10); Salicylate < 0.3 mg/dL (3-10)
[2025-02-28 00:07] LABS: Add Urine Microscopic? YES; Bacteria Urine EXCEEDS /hpf; Bilirubin Urine 1+ (Negative); Blood Urine 3+ (Negative); Glucose Urine UA Negative (Normal); Hyaline Casts Urine 6.61 /lpf; Ketones Urine Negative (Negative); Leukocyte Esterase Urine 3+ (Negative); Nitrate Urine Negative (Negative); Protein Urine 2+ (Negative); Specific Gravity, Urine 1.013 (1.005-1.030); Squamous Epithelial Cell Urine 0-5 /hpf (0-5); Urine Appearance Turbid (CLEAR); WBC Urine >100 /hpf (0-5)
[2025-02-28 00:09] LABS: Amphetamines Screen Urine Negative (Negative); Barbiturates Screen Urine Negative (Negative); Benzodiazepines Screen Urine Positive (Negative); Cocaine Screen Urine Negative (Negative); Opiate Screen Urine Negative (Negative); PCP Screen Urine Negative (Negative); THC Screen Urine Negative (Negative)
[2025-02-28 00:15] LABS: Basophils % 0.6 %; Hematocrit 42.7 % (37-53); Lymphocytes # 0.4 10^3/uL (0.8-4.8); Mean Corpuscular HGB Conc 34.4 g/dL (30-55); Mean Corpuscular Hemoglobin 33.4 pg (27-33); Mean Platelet Volume 10.1 fL (7.4-10.4); Monocytes # 0.4 10^3/uL (0.2-0.9); Monocytes % 6.3 %; Neutrophils # 5.91 10^3/uL (1.8-7.7); Neutrophils % 86.7 %; Nucleated Red Blood Cells % 0 %; Platelet Count 38 10^3/cmm (157-399); Red Cell Distribution Width 15.2 % (12.1-15.1); White Blood Count 6.82 10^3/uL (3.29-11.43)
[2025-02-28 00:17] LABS: Slide Review Slide Review Perform
[2025-02-28 00:24] LABS: Urine Color Dark Yellow (Yellow)
[2025-02-28 00:25] LABS: Add Urine Culture? Yes
[2025-02-28] MEDS: sodium chloride 0.9% 1,000 ML 999 ML IV ×2 (00:46)
--- NOTE | 2025-02-28 00:49 | W.ED.OVERDOS ---
HPI - Overdose General: Chief Complaint: Overdose Stated Complaint: OD Time Seen by Provider: 02/27/25 23:40 Source: patient and EMS History of Present Illness: Patient is a acute on chronically ill-appearing 64-year-old male who is brought to the ER via EMS due to concern for intentional overdose and alcohol intoxication. Apparently a family member at the patient's home called 911 and reported that he had tried to overdose. There were multiple empty cans of [place] ice by the patient per EMS as well as for or 5 different empty prescription bottles all of which were temazepam and 1 prescription for an SSRI. All of these prescriptions had been filled over 1 month ago and patient tells me that he did not try to kill himself and denies drinking alcohol tonight. He denies any suicidal intent or plan for self-harm. He was soiled with urine and stool upon arrival. Onset (ago): unknown Intent: unknown Related Data Home Medications ?Medication ?Instructions ?Recorded ?Confirmed metformin 1,000 mg tablet 1,000 mg PO BID 11/18/19 09/15/23 gabapentin 100 mg capsule 100 mg PO TID 02/12/23 09/15/23 potassium chloride 10 mEq 10 meq PO BID 09/15/23 09/15/23 tablet,extended release temazepam 15 mg capsule 15 mg PO BEDTIME PRN Sleep 09/15/23 09/15/23 Previous Rx's ?Medication ?Instructions ?Recorded hydrocodone 5 mg-acetaminophen 325 1 tab PO Q6H PRN pain #14 tabs 09/15/23 mg tablet naproxen 500 mg tablet (Naprosyn) 500 mg PO BID PRN pain #20 tabs 09/15/23 Allergies Allergy/AdvReac Type Severity Reaction Status Date / Time No Known Allergies Allergy Verified 02/27/25 23:41 [facility] ED PFSH: Medical History Hypothyroidism Social History Smoking and tobacco/nicotine status: current every day tobacco/nicotine user Physical Exam Const: OTHER: Acute on chronically ill-appearing 64-year-old gentleman who smells of foul urine and has urinary and stool incontinence upon arrival Eye: COMMON NORMALS: Equal, round and reactive pupils present, EOMs intact bilaterally and negative for conjunctivae normal (Icteric sclera noted) CONJUNCTIVA: No conjunctivae normal (Icteric sclera noted) PUPIL: Yes Equal, round and reactive pupils present Resp: COMMON NORMALS: normal respiratory effort and No use of accessory muscles Cardio: RATE: tachycardic GI: COMMON NORMALS: Soft to palpation and non-tender PALPATION: Yes Soft to palpation Extremity: COMMON NORMALS: normal to inspection and full ROM Neuro: OTHER: GCS of 15, somewhat slowed and slurred speech but answers questions appropriately, moves all extremities well Psych: SPEECH: Yes slow MOOD & AFFECT: Yes depressed mood Skin: OTHER: Slight jaundiced appearance noted Course Vital Signs: Vital signs: Vital Signs Temperature 96.2 F L 02/27/25 23:31 Pulse Rate 98 02/28/25 00:48 Respiratory Rate 17 02/28/25 00:48 Blood Pressure 100/61 02/28/25 00:48 Pulse Oximetry 97 02/28/25 00:48 Oxygen Delivery Me thod Nasal Cannula 02/28/25 00:48 Oxygen Flow Rate 3 02/28/25 00:48 MDM - Overdose Medical Decision Making Patient is a acute on chronically ill-appearing 64-year-old gentleman with who appears to have cirrhosis and was brought into the ER by EMS due to concern for suicide attempt. Patient is somewhat altered here but able to answer most of my questions appropriately and denies any suicide attempt or self-harm. He denies drinking any alcohol tonight and indeed his alcohol level is less than 10. He was initially somewhat tachycardic upon arrival however his heart rate has normalized with IV fluids. He is afebrile and is actually somewhat hypothermic. We will provide some warming measures. Patient has a negative head CT. No acute cardiothoracic findings on chest x-ray. CBC shows thrombocytopenia with a platelet count of 38 consistent with his cirrhosis. He has elevated bilirubin and LFTs. His ammonia level is less than 30. Lactic acid is 4 which certainly may be due to sepsis but also may be due to his cirrhosis. He was given 30 cc/kg IV fluid bolus. He was given 2 g IV Rocephin for what appears to be a urinary tract infection. Sepsis fluid reassessment was performed following administration of IV fluids. Given his altered mental status, weakness, urinary tract infection with potential sepsis I did speak with Dr. Sheldon with hospitalist service who will admit. Lab Data 02/27/25 23:37 02/27/25 23:37 Radiology Impressions Chest X-Ray 02/27/25 23:41 IMPRESSION: No acute chest findings. Head CT 02/27/25 23:41 IMPRESSION: No acute intracranial findings. Laboratory Results WBC 6.82 10^3/uL (3.29-11.43) 02/27/25 23:37 RBC 4.40 10^6/uL (3.85-5.65) 02/27/25 23:37 Hgb 14.70 g/dL (11.27-16.99) 02/27/25 23:37 Hct 42.7 % (37-53) 02/27/25 23:37 MCV 97.0 fl (82-101) 02/27/25 23: MCH 33.4 pg (27-33) H 02/27/25 23:37 MCHC 34.4 g/dL (30-55) 02/27/25 23: RDW 15.2 % (12.1-15.1) H 02/27/25 23:37 Plt Count 38 10^3/cmm (157-399) L 02/27/25 23:37 MPV 10.1 fL (7.4-10.4) 02/27/25 23:37 Neut % (Auto) 86.7 % 02/27/25 23:37 Lymph % (Auto) 6.0 % 02/27/25 23:37 [place] % (Auto) 6.3 % 02/27/25 23:37 Eos % (Auto) 0.0 % 02/27/25:37 Baso % (Auto) 0.6 % 02/27/25 23:37 Neut # (Auto) 5.91 10^3/uL (1.8-7.7) 02/27/25 23:37 Lymph # (Auto) 0.4 10^3/uL (0.8-4.8) L 02/27/25 23:37 [place] # (Auto) 0.4 10^3/uL (0.2-0.9) 02/27/25 23:37 Eos # (Auto) 0.0 10^3/uL (0.0-0.8) 02/27/25 23:37 Baso # (Auto) 0.0 10^3/uL (0.0-0.1) 02/27/25 23:37 Nucleated RBC % (auto) 0 % 02/27/25 23:37 Nucleated RBCs # 0.0 /100WBC 02/27/25 23:37 PT 20.80 SECONDS (12.1-14.9) H 02/27/25 23:37 INR 1.68 (0.8-1.2) H 02/27/25 23:37 APTT 39.1 SECONDS (23.9-36.7) H 02/27/25 23:37 Sodium 135 mmol/L (136-145) L 02/27/25 23:37 Potassium 3.4 mmol/L (3.5-5.1) L 02/27/25 23:37 Chloride 98 mmol/L (98-107) 02/27/25 23:37 Carbon Dioxide 27 mmol/L (22-29) 02/27/25 23:37 Anion Gap 13.4 (5-19) 02/27/25 23:37 BUN 25 mg/dL (8-23) H 02/27/25 23:37 Creatinine 0.9 mg/dL (0.7-1.2) 02/27/25 23:37 GFR Calculation 84.4 mL/min (90-130) L 02/27/25 23:37 Glucose 95 mg/dL (65-115) 02/27/25 23:37 Calculated Osmolality 284 mOsm/kg (285-295) L 02/27/25 23:37 Lactic Acid 4.0 mmol/L (0.5-2.2) H 02/27/25 23:37 Calcium 7.8 mg/dL (8.5-10.5) L 02/27/25 23:37 Magnesium 1.8 mg/dL (1.7-2.3) 02/27/25 23:37 Total Bilirubin 4.5 mg/dL (0.15-1.2) H 02/27/25 23:37 AST 197 U/L (0-40) H 02/27/25 23:37 ALT 34 U/L (0-41) 02/27/25 23:37 Alkaline Phosphatase 46 U/L (40-130) 02/27/25 23:37 Ammonia 30 umol/L (16-60) 02/28/25 00:26 Total Protein 6.0 g/dL (6.6-8.7) L 02/27/25 23:37 Albumin 2.3 g/dL (3.5-5.2) L 02/27/25 23:37 Globulin 3.7 g/dL (1.3-4.6) 02/27/25 23:37 Urine Color Dark yellow (Yellow) A 02/27/25 23:43 Urine Appearance Turbid (CLEAR) A 02/27/25 23:43 Urine pH 6.0 (5-7) 02/27/25 23:43 Ur Specific [place] 1.013 (1.005-1.030) 02/27/25 23:43 Urine Protein 2+ (Negative) A 02/27/25 23:43 Urine Glucose (UA) Negative (Normal) 02/27/25 23:43 Urine Ketones Negative (Negative) 02/27/25 23:43 Urine Blood 3+ (Negative) A 02/27/25 23:43 Urine Nitrate Negative (Negative) 02/27/25 23:43 Urine Bilirubin 1+ (Negative) H 02/27/25 23:43 Urine Urobilinogen 1.0 mg/dL (Negative) 02/27/25 23:43 Ur Leukocyte Esterase 3+ (Negative) A 02/27/25 23:43 Urine RBC 11-20 /hpf (0-2) H 02/27/25 23:43 Urine WBC >100 /hpf (0-5) H 02/27/25 23:43 Ur Squamous Epith Cells 0-5 /hpf (0-5) 02/27/25 23:43 Amorphous Sediment Not Reportable 02/27/25 23:43 Urine Bacteria Exceeds /hpf (NONE) 02/27/25 23:43 Hyaline Casts 6.61 /lpf 02/27/25 23:43 Salicylates < 0.3 mg/dL (3-10) L 02/27/25 23:37 Urine Opiates Screen Negative ng/mL (Negative) 02/27/25 23:43 Acetaminophen < 5.0 ug/mL (10-30) L 02/27/25 23:37 Ur Barbiturates Screen Negative ng/mL (Negative) 02/27/25 23:43 Ur Phencyclidine Scrn Negative ng/mL (Negative) 02/27/25 23:43 Ur Amphetamines Screen Negative ng/mL (Negative) 02/27/25 23:43 U Benzodiazepines Scrn Positive ng/mL (Negative) H 02/27/25 23:43 Urine Cocaine Screen Negative ng/mL (Negative) 02/27/25 23:43 U Marijuana (THC) Screen Negative ng/mL (Negative) 02/27/25 23:43 Ethyl Alcohol < 10 mg/dL (0-10) 02/27/25 23:37 All radiology interpretation(s) finalized by discharge EKG Data EKG 1: Interpretation: Sinus tachycardia. No ischemic ST elevation or depressions. Rate of 110 bpm. Normal axis. Discharge Plan Discharge Patient Disposition: Placed in Observation Clinical Impression: Altered mental status, Urinary tract infection, Acute metabolic encephalopathy, Thrombocytopenia, Acidosis, lactic Condition: Stable Prescriptions: No Action metformin 1,000 mg Tablet 1,000 mg PO BID gabapentin 100 mg Capsule 100 mg PO TID potassium chloride 10 mEq tablet extended release 10 meq PO BID temazepam 15 mg capsule 15 mg PO BEDTIME PRN (Reason: Sleep) hydrocodone-acetaminophen 5-325 mg tablet 1 tab PO Q6H PRN (Reason: pain) Qty: 14 0RF Naprosyn 500 mg tablet 500 mg PO BID PRN (Reason: pain) Qty: 20 0RF Referrals: Sanam Sosa DO [Primary Care Provider] - Print Language: Wolof Coding Level of Care Code ED Tightening Machine Operator for Lamin Pink
[2025-02-28 00:56] LABS: Ammonia 30 umol/L (16-60)
--- NOTE | 2025-02-28 00:58 | PC.NURSE ---
This nurse spoke with Venecia from [place] [facility] regarding patient status, vitals and laboratory results. Po[facility] Control to call back for further updates.
[2025-02-28] MEDS: cefTRIAXone 2,000 mg SDV 2000 MG IVP (01:06)
--- NOTE | 2025-02-28 01:33 | P.HP_ITS ---
Providers/Chief Complaint 2 Primary Care Provider: Sanam Sosa DO Chief Complaint: OD History of Present Illness Bernardino Jackson is a 64 year old male with a past medical history significant for alcoholic liver cirrhosis, type 2 diabetes mellitus, hypothyroidism, and depression who presents to the emergency department after being found down by his grandson. Patient endorses generalized malaise and fatigue. Endorses chills. Denies alleviating or aggravating factors. ED provider reported EMS stated patient was found with concern for alcohol intoxication given empty alcohol bottle as well as multiple empty bottles of temazepam as well as a bottle with Lunesta with 5 pills remaining. Patient is adamant that he did not take any extra medications nor did he try to harm himself. His grandson is bedside states that he found him down at the house and became worried for which called EMS. States that he had not been drinking very much lately. Patient reports he occasionally has a wine cooler and that is it. Grandson agrees with this collateral information. Grandson also notes the patient was prescribed the sleeping medications due to history of bad insomnia. Patient does report a history of alcohol use. He states 3 years ago when his spouse he drank very heavily but has since improved. He denies a history of prior alcohol withdrawal. States he saw a liver doctor in the [facility] previously. He does report a history of duodenal ulcers. In the emergency department, patient was found to have thrombocytopenia, slightly elevated INR, hyponatremia, hypochloremia, azotemia, hyperbilirubinemia, elevated AST, elevated lactic acid, and low albumin. Urinalysis consistent with UTI. UDS was positive for benzodiazepines. Ethyl alcohol level was less than 10 mg/dL. Review of Systems 2 Narrative: A complete review of systems was obtained and is negative except as stated in HPI. Medications/Allergies Home Medications ?Medication ?Instructions ?Recorded ?Confirmed ?Last Taken ?Type metformin 1,000 mg tablet 1,000 mg PO BID 11/18/1907/3009/14/23 History gabapentin 100 mg capsule 100 mg PO TID 02/12/2309/1509/15/23 History hydrocodone 5 mg-acetaminophen 325 1 tab PO Q6H PRN pa in #14 tabs 09/15/23 Unknown Rx mg tablet naproxen 500 mg tablet (Naprosyn) 500 mg PO BID PRN pa in #20 tabs 09/15/23 Unknown Rx potassium chloride 10 mEq 10 meq PO BID 09/15/2309/1509/14/23 History tablet,extended release temazepam 15 mg capsule 15 mg PO BEDTIME PRN Sleep 1 11/15/22 09/15/23 Unknown History Allergies Allergy/AdvReac Type Severity Reaction Status Date / Time No Known Allergies Allergy Verified 02/27/25 23:41 PFSH Acute 2 PFSH: Medical History Insomnia Type 2 diabetes mellitus Hypothyroidism Surgical History History of esophagogastroduodenoscopy Family History Mother Diabetes mellitus, type 2 Social History (Updated 02/28/25 @ 02:04 by Jeffrey Sheldon MD) Smoking and tobacco/nicotine status: current every day tobacco/nicotine user Alcohol intake: former Substance/Drug Use: unknown Vitals/I&O/Wt Last Vital Signs Temp 96.2 F L 02/27/25 23:31 Pulse 98 02/28/25 00:48 Resp 17 02/28/25 00:48 BP 100/61 02/28/25 00:48 Pulse Ox 97 02/28/25 00:48 O2 Del Method Nasal Cannula 02/28/25 00:48 O2 Flow Rate 3 02/28/25 00:48 02/27/25 02/27/25 02/28/25 14:59 22:59 06:59 Intake Total 300 / 300 Balance 300 / 300 Weight last 48 hrs Weight 84.822 kg Physical Exam 2 Narrative: General: Patient is awake. Appears poorly kept. Head: Normocephalic. Icteric sclera. Neck: No JVD. Cardiovascular: RRR. No gallops. No murmurs. Lungs: Clear to auscultation, no use of accessory muscles, no crackles or wheezes. Skin: Slightly jaundiced. No rashes. Abdomen: Normal bowel sounds, abdomen soft and nontender. Genito Urinary: Genital exam not performed since complaints not related. Rectal: Rectal exam not performed since no symptoms indicated blood loss. Extremities: No cyanosis or clubbing. Pedal onychomycosis. Musculoskeletal: No erythematous joints. Neurological: Moves all 4 extremities. No myoclonus. Data 02/27/25 23:37 02/27/25 23:37 A&P Assessment and plan (1) Type 2 diabetes mellitus: (2) Thrombocytopenia: (3) Acute metabolic encephalopathy: (4) Urinary tract infection: (5) Acidosis, lactic: (6) Alcoholic cirrhosis: (7) Hypothyroidism: Plan Acute complicated urinary tract infection - Reflex urine culture - Status post ceftriaxone in ED - Start cefepime Acute metabolic encephalopathy Failure to thrive and overall fluid Debility physical deconditioning - Patient adamant that he did not overdose or attempt to harm himself - Grandson agrees the patient was not trying to harm himself - Monitor with continuous telemetry and pulse oximetry - Avoid further sedating medications - Monitor mentation closely Lactic acidosis - May be sequela of liver disease, metformin side effect, versus infection - Trend lactate - Treat underlying infection Alcoholic liver cirrhosis Transaminitis Hyperbilirubinemia Coagulopathy with elevated INR Thrombocytopenia Hx of GI bleed - Suspect above sequela of underlying alcoholic liver cirrhosis - No NSAIDS - Thiamine, folic acid, vitamin - CIWA Hypokalemia - Replace potassium as needed - Check Mg Type 2 diabetes mellitus - Hold metformin - Sliding scale correction Insomnia - Hold home medications for now Hypothyroidism - Check TSH given encephalopathy DVT prophylaxis: SCD CODE STATUS: Full code PDMP PDMP Reviewed: Not Reviewed Attestations 2 Medical Necessity Statement*: Patient presents after being found down, found to have acute metabolic encephalopathy with acute complicated urinary tract infection with expected hospitalization not to cross 2 midnights for IV antibiotics and close cardiopulmonary monitoring. Coding Level of Care Code Acute Code for [facility] Fwd Diagnoses Type 2 diabetes mellitus E11.9 Thrombocytopenia D69.6 Acute metabolic encephalopathy G93.41 Urinary tract infection N39.0 Acidosis, lactic E87.20 Alcoholic cirrhosis K70.30 Hypothyroidism E03.9
[2025-02-28 01:35] LABS: Reflex Lactate Order REFLEX LACTIC ORDERD
--- NOTE | 2025-02-28 01:55 | PC.NURSE ---
Report given to Mariana MONTANO on MS
[2025-02-28 02:21] LABS: Procalcitonin 9.03 ng/mL (0-0.5)
[2025-02-28] MEDS: potassium chloride ER 20 mEq Tablet PO ×2 (02:21)
[2025-02-28 02:49] LABS: Thyroid Stimulating Hormone 1.66 uIU/mL (0.27-4.20)
[2025-02-28] MEDS: cefepime 2,000 mg SDV 2000 MG IVP ×3 (03:20→18:04)
[2025-02-28 04:31] LABS: Lactic Acid level (Lactate) 2.6 mmol/L (0.5-2.2)
[2025-02-28 06:22] LABS: Glucose Point of Care 85 mg/dL (70-110)
--- NOTE | 2025-02-28 08:27 | PC.PHAR ---
Pt is very poor historian with medications. Had to verify with [facility]. Some medications have not been filled in a long time but pt states he still takes them.
[2025-02-28] MEDS: sodium chloride 0.9% 1,000 ML 75 ML IV ×2 (09:34→23:17)
[2025-02-28] MEDS: multivitamin therapeutic Tablet 1 TAB PO (09:34)
[2025-02-28] MEDS: folic acid 1 mg Tablet PO (09:34)
[2025-02-28] MEDS: thiamine 100 mg Tablet PO (09:34)
--- NOTE | 2025-02-28 10:00 | XR_ITS ---
WS: [id number] Exam: XR shoulder RT min 2V* [id number] Date/Time of Exam: 02/28/2025 10:00 AM Reason For Exam: restricted movements afetr fall, severe pain No acute fracture. Moderate degenerative change of the glenohumeral joint and the AC joint. No dislocation. XR/XR shoulder RT min 2V* [id number] IMPRESSION: 1. Moderate degenerative changes.
--- NOTE | 2025-02-28 10:52 | PC.NURSE ---
Ivette from poison control called and was given an update on the patient and stats she will return a call back to us tomorrow.
[2025-02-28 12:14] LABS: Glucose Point of Care 190 mg/dL (70-110)
[2025-02-28] MEDS: insulin lispro 100 unit/1 mL SUBCUT ×2 (12:43→17:59)
[2025-02-28] MEDS: oxyCODONE 5 mg IR Tab/Cap PO (12:46)
--- NOTE | 2025-02-28 13:31 | P.PN_ITS ---
Subjective 2 Subjective: No acute overnight events noted. Seen him at bedside this morning. Reports feeling slightly better as compared to admission. But did have complaint of severe right shoulder pain since he fell on the right shoulder at home. Bruising noted. Had restricted movements in the right upper extremity. Medications: Reviewed: Yes Vitals/I&O/Wt Last Vital Signs Temp 98.7 F 02/28/25 12:00 Pulse 102 H 02/28/25 12:00 Resp 16 02/28/25 12:46 BP 99/65 02/28/25 12:00 Pulse Ox 95 02/28/25 12:00 O2 Del Method Nasal Cannula 02/28/25 12:00 O2 Flow Rate 3 02/28/25 00:48 02/27/25 02/28/25 02/28/25 22:59 06:59 14:59 Intake Total 2420 / 2420 480 / 480 Output Total 650 / 650 620 / 620 Balance 1770 / 1770 -140 / -140 Weight last 48 hrs Weight 87.362 kg Weight 79.379 kg Weight 84.822 kg Physical Exam 2 Narrative: General: Patient is awake. Appears poorly kept. Head: Normocephalic. Icteric sclera. Neck: No JVD. Cardiovascular: RRR. No gallops. No murmurs. Lungs: Clear to auscultation, no use of accessory muscles, no crackles or wheezes. Skin: Slightly jaundiced. No rashes. Abdomen: Normal bowel sounds, abdomen soft and nontender. Genito Urinary: Genital exam not performed since complaints not related. Rectal: Rectal exam not performed since no symptoms indicated blood loss. Extremities: No cyanosis or clubbing. Pedal onychomycosis. Musculoskeletal: No erythematous joints. Neurological: Moves all 4 extremities. No myoclonus. Data 02/27/25 23:37 02/27/25 23:37 Micro: Microbiology 02/28/25 12:00 Occult Blood (FIT) - Final Stool Routine Collection A&P Assessment and plan (1) Type 2 diabetes mellitus: (2) Thrombocytopenia: (3) Acute metabolic encephalopathy: (4) Urinary tract infection: (5) Acidosis, lactic: (6) Alcoholic cirrhosis: (7) Hypothyroidism: Plan Bernardino Jackson is a 64 year old male with a past medical history significant for alcoholic liver cirrhosis, type 2 diabetes mellitus, hypothyroidism, and depression who presents to the emergency department after being found down by his grandson. Patient endorses generalized malaise and fatigue. Endorses chills. Acute complicated urinary tract infection - Reflex urine culture - Status post ceftriaxone in ED - Start cefepime Acute metabolic encephalopathy Failure to thrive and overall fluid Debility physical deconditioning - Patient adamant that he did not overdose or attempt to harm himself - Grandson agrees the patient was not trying to harm himself - Monitor with continuous telemetry and pulse oximetry - Avoid further sedating medications - Monitor mentation closely Lactic acidosis - May be sequela of liver disease, metformin side effect, versus infection - Trend lactate - Treat underlying infection Alcoholic liver cirrhosis Transaminitis Hyperbilirubinemia Coagulopathy with elevated INR Thrombocytopenia Hx of GI bleed - Suspect above sequela of underlying alcoholic liver cirrhosis - No NSAIDS - Thiamine, folic acid, vitamin - CIWA Hypokalemia - Replace potassium as needed - Check Mg Type 2 diabetes mellitus - Hold metformin - Sliding scale correction Insomnia - Hold home medications for now Hypothyroidism - Check TSH given encephalopathy DVT prophylaxis: SCD CODE STATUS: Full code 02/28/25 As per the patient he was in his trailer, went to the bathroom to take a bath, being very small bathroom, he slipped and fell on his right shoulder. He got up and walked back to the bed, was lying on his bed when his grandson found him there. Sodium is 135 Lactic acid improved from 4-2.6 Platelets 38, thrombocytopenia likely secondary to alcoholic liver disease. INR 1.6 Will continue IV cefepime. X-ray right shoulder showed degenerative disease, no fracture or dislocation. Will do PT/OT eval Continue CIWA protocol Continue thiamine, B1 and multivitamin Will do oxycodone 5 mg every 6 hours as needed for right shoulder pain Had an episode of dark-colored stools, stool occult blood positive. Hemoglobin 14.7, likely dehydration, baseline is 9. Will monitor for now. Probably needs surgery consult for upper GI endoscopy and colonoscopy. Try weaning of oxygen, since he does not use oxygen at home. He probably might need subacute rehab on discharge Will follow-up case management for discharge planning. PDMP PDMP Reviewed: Not Reviewed Attestations 2 Medical Necessity Statement*: Patient presents after being found down, found to have acute metabolic encephalopathy with acute complicated urinary tract infection with expected hospitalization not to cross 2 midnights for IV antibiotics and close cardiopulmonary monitoring. Time Spent in Patient Care: 25minutes Coding Level of Care Code Acute Code for [facility] Fwd Diagnoses Type 2 diabetes mellitus E11.9 Thrombocytopenia D69.6 Acute metabolic encephalopathy G93.41 Urinary tract infection N39.0 Acidosis, lactic E87.20 Alcoholic cirrhosis K70.30 Hypothyroidism E03.9 Time Spent (min) 25
[2025-02-28 16:52] LABS: Glucose Point of Care 199 mg/dL (70-110)
[2025-02-28 20:17] LABS: Glucose Point of Care 136 mg/dL (70-110)
--- NOTE | 2025-02-28 20:57 | PC.NURSE ---
Spoke with patients son Vitaliy who stated he was the patients guardian. Son is to bring paperwork tomorrow and requesting placement due to being unable to care for patient any longer.
[2025-03-01] VITALS (7 sets, daily range): BP systolic 93–107; BP diastolic 57–63; PULSE 83–107; RESP 14–18; TEMP 36.7–37; O2SAT 94–97; BMI 27.5
[2025-03-01 05:33] LABS: Basophils % 0.4 %; Eosinophils # 0.1 10^3/uL (0.0-0.8); Eosinophils % 1.3 %; Hematocrit 36.2 % (37-53); Lymphocytes # 0.6 10^3/uL (0.8-4.8); Lymphocytes % 13.5 %; Mean Corpuscular HGB Conc 34.3 g/dL (30-55); Mean Corpuscular Hemoglobin 33.7 pg (27-33); Mean Corpuscular Volume 98.4 fl (82-101); Mean Platelet Volume 11.8 fL (7.4-10.4); Monocytes # 0.5 10^3/uL (0.2-0.9); Monocytes % 11.7 %; Neutrophils # 3.26 10^3/uL (1.8-7.7); Neutrophils % 72.2 %; Nucleated Red Blood Cells % 0 %; Red Blood Count 3.68 10^6/uL (3.85-5.65); Red Cell Distribution Width 15.5 % (12.1-15.1); White Blood Count 4.52 10^3/uL (3.29-11.43)
[2025-03-01] MEDS: cefepime 2,000 mg SDV 2000 MG IVP ×3 (05:50→17:48)
[2025-03-01 05:51] LABS: INR 1.51 (0.8-1.2)
[2025-03-01 05:57] LABS: Alanine Aminotransferase 30 U/L (0-41); Albumin Level 1.9 g/dL (3.5-5.2); Alkaline Phosphatase 99 U/L (40-130); Anion Gap 9.8 (5-19); Aspartate Amino Transferase 154 U/L (0-40); Blood Urea Nitrogen 20 mg/dL (8-23); Calcium 7.1 mg/dL (8.5-10.5); Carbon Dioxide 24 mmol/L (22-29); Chloride 102 mmol/L (98-107); Creatinine Clr Calc Pharmacy 101.0254; Globulin 3.1 g/dL (1.3-4.6); Glomerular Filtration Rate 112.8 mL/min (90-130); Glucose 98 mg/dL (65-115); Magnesium 1.8 mg/dL (1.7-2.3); Osmolality Calculated 279 mOsm/kg (285-295); Phosphorus 1.1 mg/dL (2.5-4.5); Sodium 133 mmol/L (136-145); Total Bilirubin 2.7 mg/dL (0.15-1.2)
[2025-03-01 06:04] LABS: Potassium 2.8 mmol/L (3.5-5.1)
[2025-03-01 06:14] LABS: Platelet Count 28 10^3/cmm (157-399)
[2025-03-01 06:15] LABS: Slide Review Slide Review Perform
[2025-03-01 06:44] LABS: Glucose Point of Care 110 mg/dL (70-110)
[2025-03-01] MEDS: lidocaine 1% 5 ML in potassium chloride premix 100 ML 26.25 ML IV (08:18)
[2025-03-01] MEDS: thiamine 100 mg Tablet PO (08:21)
[2025-03-01] MEDS: folic acid 1 mg Tablet PO (08:21)
[2025-03-01] MEDS: potassium chloride ER 20 mEq Tablet 40 MEQ PO (08:21)
[2025-03-01] MEDS: multivitamin therapeutic Tablet 1 TAB PO (08:21)
[2025-03-01] MEDS: oxyCODONE 5 mg IR Tab/Cap PO ×3 (08:29→21:03)
[2025-03-01 10:47] LABS: Glucose Point of Care 153 mg/dL (70-110)
[2025-03-01] MEDS: sodium chloride 0.9% 1,000 ML 75 ML IV (10:56)
[2025-03-01] MEDS: insulin lispro 100 unit/1 mL SUBCUT ×3 (12:08→21:45)
--- NOTE | 2025-03-01 13:59 | PM.PN ---
Subjective Subjective: No acute overnight events noted. [facility] [place] this [facility], still unable to move right upper extremity due to severe pain and stiffness. Nurse at bedside reported that he got very stiff while transferring OOB to chair and was not able to make him sit. Apparently he reports walking 2 miles back and forth [employer]. Medications: Reviewed: Yes Vitals/I&O/Wt Last Vital Signs Temp 98.2 F 03/01/25 07:55 Pulse 95 03/01/25 12:00 Resp 18 03/01/25 12:00 BP 93/57 03/01/25 12:00 Pulse Ox 95 03/01/25 12:00 O2 Del Method Room Air 03/01/25 12:00 O2 Flow Rate 1 03/01/25 08:00 02/28/25 03/01/25 03/01/25 22:59 06:59 14:59 Intake Total 1480 / 1960 640 / 2600 1098.75 / 1098.75 Output Total 650 / 1270 1450 / 2720 Balance 830 / 690 -810 / -120 1098.75 / 1098.75 Weight last 48 hrs Weight 87.09 kg Weight 87.362 kg Weight 79.379 kg Weight 84.822 kg Physical Exam Narrative: General: Patient is awake. Appears poorly kept. Head: Normocephalic. Icteric sclera. Neck: No JVD. Cardiovascular: RRR. No gallops. No murmurs. Lungs: Clear to auscultation, no use of accessory muscles, no crackles or wheezes. Skin: Slightly jaundiced. No rashes. Abdomen: Normal bowel sounds, abdomen soft and nontender.. Extremities: No cyanosis or clubbing. Pedal onychomycosis. Musculoskeletal: No erythematous joints. Right upper extremity restricted ROM, severe tenderness. Neurological: Moves all 4 extremities. No myoclonus. Data 03/01/25 04:33 03/01/25 04:33 Micro: Microbiology 02/27/25 23:43 Urine Culture - Preliminary Urine,Clean Catch Gram Negative Rods Gram Negative Rods#2 02/28/25 12:00 Occult Blood (FIT) - Final Stool Routine Collection A&P Assessment and plan (1) Type 2 diabetes mellitus: (2) Thrombocytopenia: (3) Acute metabolic encephalopathy: (4) Urinary tract infection: (5) Acidosis, lactic: (6) Alcoholic cirrhosis: (7) Hypothyroidism: Plan Bernardino Jackson is a 64 year old male with a past medical history significant for alcoholic liver cirrhosis, type 2 diabetes mellitus, hypothyroidism, and depression who presents to the emergency department after being found down by his grandson. Patient endorses generalized malaise and fatigue. Endorses chills. Acute complicated urinary tract infection - Reflex urine culture - Status post ceftriaxone in ED - Start cefepime Acute metabolic encephalopathy Failure to thrive and overall fluid Debility physical deconditioning - Patient adamant that he did not overdose or attempt to harm himself - Grandson agrees the patient was not trying to harm himself - Monitor with continuous telemetry and pulse oximetry - Avoid further sedating medications - Monitor mentation closely Lactic acidosis - May be sequela of liver disease, metformin side effect, versus infection - Trend lactate - Treat underlying infection Alcoholic liver cirrhosis Transaminitis Hyperbilirubinemia Coagulopathy with elevated INR Thrombocytopenia Hx of GI bleed - Suspect above sequela of underlying alcoholic liver cirrhosis - No NSAIDS - Thiamine, folic acid, vitamin - CIWA Hypokalemia - Replace potassium as needed - Check Mg Type 2 diabetes mellitus - Hold metformin - Sliding scale correction Insomnia - Hold home medications for now Hypothyroidism - Check TSH given encephalopathy DVT prophylaxis: SCD CODE STATUS: Full code 02/28/25 As per the patient he was in his trailer, went to the bathroom to take a bath, being very small bathroom, he slipped and fell on his right shoulder. He got up and walked back to the bed, was lying on his bed when his grandson found him there. Sodium is 135 Lactic acid improved from 4-2.6 Platelets 38, thrombocytopenia likely secondary to alcoholic liver disease. INR 1.6 Will continue IV cefepime. X-ray right shoulder showed degenerative disease, no fracture or dislocation. Will do PT/OT eval Continue CIWA protocol Continue thiamine, B1 and multivitamin Will do oxycodone 5 mg every 6 hours as needed for right shoulder pain Had an episode of dark-colored stools, stool occult blood positive. Hemoglobin 14.7, likely dehydration, baseline is 9. Will monitor for now. Probably needs surgery consult for upper GI endoscopy and colonoscopy. Try weaning of oxygen, since he does not use oxygen at home. He probably might need subacute rehab on discharge Will follow-up case management for discharge planning. 03/01/25 Na 133, K 2.8 replaced, INR 1.5 Platlets trending down to 28 Hb 14.7 to 12.4. No more episodes of dark stools noted. will monitor for now. Will start on iv pantoprozole 40mg bid Surgery consult if Hemoglobin trending down. Continue CIWA protocol Continue thiamine, B1 and multivitamin Will do oxycodone 5 mg every 6 hours leah and po robaxin 500mg q8h for right shoulder pain Continue PT/OT Continue to monitor for now. PDMP PDMP Reviewed: Not Reviewed Attestations Medical Necessity Statement*: Needs continued hospitalization crossing 2 midnights for monitoring of anemia, thrombocytopenia, IV antiobiotics for UTI, Right shoulder injury, pain control, PT and OT. Time Spent in Patient Care: 20minutes Coding Level of Care Code Acute Code for Chg Fwd Diagnoses Type 2 diabetes mellitus E11.9 Thrombocytopenia D69.6 Acute metabolic encephalopathy G93.41 Urinary tract infection N39.0 Acidosis, lactic E87.20 Alcoholic cirrhosis K70.30 Hypothyroidism E03.9 Time Spent (min) 20
[2025-03-01] MEDS: pantoprazole 40 mg SDV IVP (14:29)
[2025-03-01] MEDS: methocarbamol 500 mg Tablet PO ×2 (14:29→21:03)
[2025-03-01 16:59] LABS: Glucose Point of Care 142 mg/dL (70-110)
[2025-03-01 21:25] LABS: Glucose Point of Care 158 mg/dL (70-110)
[2025-03-02] VITALS (11 sets, daily range): BP systolic 90–112; BP diastolic 56–64; PULSE 94–102; RESP 16–19; TEMP 36.4–37.1; O2SAT 94–98; BMI 27.5
[2025-03-02] MEDS: cefepime 2,000 mg SDV 2000 MG IVP ×3 (03:21→18:14)
[2025-03-02] MEDS: oxyCODONE 5 mg IR Tab/Cap PO ×4 (03:28→20:02)
[2025-03-02] MEDS: sodium chloride 0.9% 1,000 ML 75 ML IV ×2 (03:28→13:26)
[2025-03-02] MEDS: pantoprazole 40 mg SDV IVP ×2 (03:28→16:10)
[2025-03-02 05:14] LABS: Basophils % 0.5 %; Eosinophils # 0.2 10^3/uL (0.0-0.8); Eosinophils % 2.7 %; Hematocrit 33.5 % (37-53); Lymphocytes # 0.9 10^3/uL (0.8-4.8); Lymphocytes % 13.6 %; Mean Corpuscular HGB Conc 34.9 g/dL (30-55); Mean Corpuscular Hemoglobin 33.9 pg (27-33); Mean Corpuscular Volume 97.1 fl (82-101); Mean Platelet Volume 12.1 fL (7.4-10.4); Monocytes % 14.8 %; Neutrophils # 4.29 10^3/uL (1.8-7.7); Nucleated Red Blood Cells % 0 %; Red Blood Count 3.45 10^6/uL (3.85-5.65); Red Cell Distribution Width 15.2 % (12.1-15.1)
[2025-03-02 05:41] LABS: Alanine Aminotransferase 31 U/L (0-41); Albumin Level 1.7 g/dL (3.5-5.2); Alkaline Phosphatase 110 U/L (40-130); Anion Gap 10.2 (5-19); Aspartate Amino Transferase 118 U/L (0-40); Blood Urea Nitrogen 16 mg/dL (8-23); Calcium 7.1 mg/dL (8.5-10.5); Carbon Dioxide 21 mmol/L (22-29); Chloride 104 mmol/L (98-107); Creatinine Clr Calc Pharmacy 101.0254; Globulin 3.1 g/dL (1.3-4.6); Glomerular Filtration Rate 112.8 mL/min (90-130); Glucose 97 mg/dL (65-115); Osmolality Calculated 275 mOsm/kg (285-295); Potassium 3.2 mmol/L (3.5-5.1); Sodium 132 mmol/L (136-145); Total Bilirubin 2.8 mg/dL (0.15-1.2); Total Protein 4.8 g/dL (6.6-8.7)
[2025-03-02 06:10] LABS: Platelet Count 29 10^3/cmm (157-399)
[2025-03-02 06:11] LABS: Slide Review Slide Review Perform
[2025-03-02 06:54] LABS: Glucose Point of Care 95 mg/dL (70-110)
[2025-03-02] MEDS: potassium chloride ER 20 mEq Tablet 40 MEQ PO ×2 (10:06→13:26)
[2025-03-02] MEDS: methocarbamol 500 mg Tablet PO ×3 (10:07→20:03)
[2025-03-02] MEDS: thiamine 100 mg Tablet PO (10:08)
[2025-03-02] MEDS: folic acid 1 mg Tablet PO (10:08)
[2025-03-02] MEDS: multivitamin therapeutic Tablet 1 TAB PO (10:08)
--- NOTE | 2025-03-02 11:05 | P.PN_ITS ---
Subjective 2 Subjective: No acute overnight events noted. Seen him at bedside this morning. He was out of bed to chair, feeling better, right shoulder stiffness and pain getting better. Medications: Reviewed: Yes Vitals/I&O/Wt Last Vital Signs Temp 98.8 F 03/02/25 07:45 Pulse 94 03/02/25 07:45 Resp 18 03/02/25 10:07 BP 99/59 03/02/25 07:45 Pulse Ox 95 03/02/25 10:07 O2 Del Method Nasal Cannula 03/02/25 07:45 O2 Flow Rate 1 03/01/25 08:00 03/01/25 03/02/25 03/02/25 22:59 06:59 14:59 Intake Total 340 / 1438.75 1620 / 3058.75 240 / 240 Output Total 550 / 1600 1600 / 3200 Balance -210 / -161.25 20 / -141.25 240 / 240 Weight last 48 hrs Weight 87.09 kg Weight 87.09 kg Physical Exam 2 Narrative: General: Patient is awake, alert and oriented x 3 Head: Normocephalic. Icteric sclera. Neck: No JVD. Cardiovascular: RRR. No gallops. No murmurs. Lungs: Clear to auscultation, no use of accessory muscles, no crackles or wheezes. Skin: Slightly jaundiced. No rashes. Abdomen: Normal bowel sounds, abdomen soft and nontender.. Extremities: No cyanosis or clubbing. Pedal onychomycosis. Musculoskeletal: No erythematous joints. Right upper extremity restricted ROM, severe tenderness. Neurological: Moves all 4 extremities. No myoclonus. Data 03/02/25 04:20 03/02/25 04:20 Micro: Microbiology 02/27/25 23:43 Urine Culture - Preliminary Urine,Clean Catch Gram Negative Rods Gram Negative Rods#2 A&P Assessment and plan (1) Type 2 diabetes mellitus: (2) Thrombocytopenia: (3) Acute metabolic encephalopathy: (4) Urinary tract infection: (5) Acidosis, lactic: (6) Alcoholic cirrhosis: (7) Hypothyroidism: Plan Bernardino Jackson is a 64 year old male with a past medical history significant for alcoholic liver cirrhosis, type 2 diabetes mellitus, hypothyroidism, and depression who presents to the emergency department after being found down by his grandson. Patient endorses generalized malaise and fatigue. Endorses chills. Acute complicated urinary tract infection - Reflex urine culture - Status post ceftriaxone in ED - Start cefepime Acute metabolic encephalopathy Failure to thrive and overall fluid Debility physical deconditioning - Patient adamant that he did not overdose or attempt to harm himself - Grandson agrees the patient was not trying to harm himself - Monitor with continuous telemetry and pulse oximetry - Avoid further sedating medications - Monitor mentation closely Lactic acidosis - May be sequela of liver disease, metformin side effect, versus infection - Trend lactate - Treat underlying infection Alcoholic liver cirrhosis Transaminitis Hyperbilirubinemia Coagulopathy with elevated INR Thrombocytopenia Hx of GI bleed - Suspect above sequela of underlying alcoholic liver cirrhosis - No NSAIDS - Thiamine, folic acid, vitamin - CIWA Hypokalemia - Replace potassium as needed - Check Mg Type 2 diabetes mellitus - Hold metformin - Sliding scale correction Insomnia - Hold home medications for now Hypothyroidism - Check TSH given encephalopathy DVT prophylaxis: SCD CODE STATUS: Full code 02/28/25 As per the patient he was in his trailer, went to the bathroom to take a bath, being very small bathroom, he slipped and fell on his right shoulder. He got up and walked back to the bed, was lying on his bed when his grandson found him there. Sodium is 135 Lactic acid improved from 4-2.6 Platelets 38, thrombocytopenia likely secondary to alcoholic liver disease. INR 1.6 Will continue IV cefepime. X-ray right shoulder showed degenerative disease, no fracture or dislocation. Will do PT/OT eval Continue CIWA protocol Continue thiamine, B1 and multivitamin Will do oxycodone 5 mg every 6 hours as needed for right shoulder pain Had an episode of dark-colored stools, stool occult blood positive. Hemoglobin 14.7, likely dehydration, baseline is 9. Will monitor for now. Probably needs surgery consult for upper GI endoscopy and colonoscopy. Try weaning of oxygen, since he does not use oxygen at home. He probably might need subacute rehab on discharge Will follow-up case management for discharge planning. 03/01/25 Na 133, K 2.8 replaced, INR 1.5 Platlets trending down to 28 Hb 14.7 to 12.4. No more episodes of dark stools noted. will monitor for now. Will start on iv pantoprozole 40mg bid Surgery consult if Hemoglobin trending down. Continue CIWA protocol Continue thiamine, B1 and multivitamin Will do oxycodone 5 mg every 6 hours leah and po robaxin 500mg q8h for right shoulder pain Continue PT/OT Continue to monitor for now. 03/02/25 Spoke to patient's son, Vitaliy jackson over the phone. He has been concerned about his alcohol intake and noncompliance with medications. He reported as long as he is at home Mr. Bernardino jackson follows all the directions for medications. Vitaliy has been traveling for work and has not been able to take care of Mr. Jackson in regards to alcohol intake and medications. He says it was an unsafe discharge home. When he is not home, patient seems confused, drinks heavily, has vomiting episodes and diarrhea and does not follow proper hygiene. He seemed to have worsening confusion over a period of few months. He was requesting to discharge him to a detox center or subacute rehab or residential facility for further management. Potassium 3.2, replaced. Hemoglobin 11.7 Platelets 29 Urine culture growing gram-negative rods No more episodes of dark stools noted. Continue IV cefepime and Zyvox for now. Will follow-up PT recommendations Case management consult for discharge planning probably to subacute rehab. PDMP PDMP Reviewed: Not Reviewed Attestations 2 Medical Necessity Statement*: Needs continued hospitalization crossing 2 midnights for monitoring of anemia, thrombocytopenia, IV antiobiotics for UTI, Right shoulder injury, pain control, PT and OT. Time Spent in Patient Care: 20minutes Coding Level of Care Code Acute Code for Chg Fwd Diagnoses Type 2 diabetes mellitus E11.9 Thrombocytopenia D69.6 Acute metabolic encephalopathy G93.41 Urinary tract infection N39.0 Acidosis, lactic E87.20 Alcoholic cirrhosis K70.30 Hypothyroidism E03.9 Time Spent (min) 20
[2025-03-02 11:19] LABS: Glucose Point of Care 135 mg/dL (70-110)
[2025-03-02 16:37] LABS: Glucose Point of Care 150 mg/dL (70-110)
[2025-03-02] MEDS: insulin lispro 100 unit/1 mL SUBCUT ×2 (18:14→20:28)
[2025-03-02 20:28] LABS: Glucose Point of Care 156 mg/dL (70-110)
[2025-03-03] MEDS: sodium chloride 0.9% 1,000 ML 75 ML IV ×2 (01:35→15:00)
[2025-03-03] MEDS: cefepime 2,000 mg SDV 2000 MG IVP ×3 (01:36→21:26)
[2025-03-03] MEDS: pantoprazole 40 mg SDV IVP ×2 (02:00→15:49)
[2025-03-03 03:17] VITALS: BP 95/52; PULSE 98; RESP 18; TEMP 37; O2SAT 93
[2025-03-03] MEDS: LORazepam 0.5 mg Tablet PO (03:31)
[2025-03-03 05:00] LABS: Basophils % 0.5 %; Eosinophils # 0.1 10^3/uL (0.0-0.8); Eosinophils % 1.5 %; Hematocrit 32.7 % (37-53); Lymphocytes # 1.1 10^3/uL (0.8-4.8); Lymphocytes % 14.4 %; Mean Corpuscular HGB Conc 34.3 g/dL (30-55); Mean Corpuscular Hemoglobin 33.4 pg (27-33); Mean Corpuscular Volume 97.6 fl (82-101); Mean Platelet Volume 10.2 fL (7.4-10.4); Monocytes # 0.7 10^3/uL (0.2-0.9); Monocytes % 9.5 %; Neutrophils # 5.62 10^3/uL (1.8-7.7); Nucleated Red Blood Cells % 0 %; Platelet Count 33 10^3/cmm (157-399); Red Blood Count 3.35 10^6/uL (3.85-5.65); Red Cell Distribution Width 15.5 % (12.1-15.1)
[2025-03-03 05:14] LABS: Anion Gap 9.2 (5-19); Blood Urea Nitrogen 14 mg/dL (8-23); Carbon Dioxide 21 mmol/L (22-29); Chloride 106 mmol/L (98-107); Creatinine Clr Calc Pharmacy 101.0254; Glomerular Filtration Rate 134.8 mL/min (90-130); Glucose 100 mg/dL (65-115); Osmolality Calculated 277 mOsm/kg (285-295); Potassium 3.2 mmol/L (3.5-5.1); Sodium 133 mmol/L (136-145)
[2025-03-03 05:38] LABS: Slide Review Slide Review Perform
[2025-03-03 06:07] LABS: Glucose Point of Care 94 mg/dL (70-110)
[2025-03-03 07:37] VITALS: BP 97/53; PULSE 96; RESP 18; TEMP 36.9; O2SAT 93
[2025-03-03 08:35] VITALS: BP 104/65; PULSE 92; RESP 18; TEMP 36.8
[2025-03-03] MEDS: folic acid 1 mg Tablet PO (09:13)
[2025-03-03] MEDS: methocarbamol 500 mg Tablet PO ×3 (09:13→21:26)
[2025-03-03] MEDS: multivitamin therapeutic Tablet 1 TAB PO (09:13)
[2025-03-03] MEDS: thiamine 100 mg Tablet PO (09:13)
[2025-03-03 10:58] LABS: Glucose Point of Care 124 mg/dL (70-110)
[2025-03-03 11:28] VITALS: BP 104/65; PULSE 92; RESP 18; TEMP 36.8; O2SAT 96
--- NOTE | 2025-03-03 11:41 | P.PN_ITS ---
Subjective 2 Subjective: No acute overnight events noted. he is clinically getting better Medications: Reviewed: Yes Vitals/I&O/Wt Last Vital Signs Temp 98.3 F 03/03/25 11:28 Pulse 92 03/03/25 11:28 Resp 18 03/03/25 11:28 BP 104/65 03/03/25 11:28 Pulse Ox 96 03/03/25 11:28 O2 Del Method Room Air 03/03/25 11:28 O2 Flow Rate 1 03/01/25 08:00 03/02/25 03/03/25 03/03/25 22:59 06:59 14:59 Intake Total 360 / 1587.5 911.25 / 2498.75 480 / 480 Output Total 1600 / 1600 1400 / 3000 Balance -1240 / -12.5 -488.75 / -501.25 480 / 480 Weight last 48 hrs Weight 87.044 kg Weight 87.09 kg Physical Exam 2 Narrative: General: Patient is awake, alert and oriented x 3 Head: Normocephalic. Icteric sclera. Neck: No JVD. Cardiovascular: RRR. No gallops. No murmurs. Lungs: Clear to auscultation, no use of accessory muscles, no crackles or wheezes. Skin: Slightly jaundiced. No rashes. Abdomen: Normal bowel sounds, abdomen soft and nontender.. Extremities: No cyanosis or clubbing. Pedal onychomycosis. Musculoskeletal: No erythematous joints. Right upper extremity restricted ROM, severe tenderness. Neurological: Moves all 4 extremities. No myoclonus. Data 03/03/25 04:22 03/03/25 04:22 Micro: Microbiology 02/27/25 23:43 Urine Culture - Final Urine,Clean Catch Escherichia coli A&P Assessment and plan (1) Type 2 diabetes mellitus: (2) Thrombocytopenia: (3) Acute metabolic encephalopathy: (4) Urinary tract infection: (5) Acidosis, lactic: (6) Alcoholic cirrhosis: (7) Hypothyroidism: Plan Bernardino Jackson is a 64 year old male with a past medical history significant for alcoholic liver cirrhosis, type 2 diabetes mellitus, hypothyroidism, and depression who presents to the emergency department after being found down by his grandson. Patient endorses generalized malaise and fatigue. Endorses chills. Acute complicated urinary tract infection - Reflex urine culture - Status post ceftriaxone in ED - Start cefepime Acute metabolic encephalopathy Failure to thrive and overall fluid Debility physical deconditioning - Patient adamant that he did not overdose or attempt to harm himself - Grandson agrees the patient was not trying to harm himself - Monitor with continuous telemetry and pulse oximetry - Avoid further sedating medications - Monitor mentation closely Lactic acidosis - May be sequela of liver disease, metformin side effect, versus infection - Trend lactate - Treat underlying infection Alcoholic liver cirrhosis Transaminitis Hyperbilirubinemia Coagulopathy with elevated INR Thrombocytopenia Hx of GI bleed - Suspect above sequela of underlying alcoholic liver cirrhosis - No NSAIDS - Thiamine, folic acid, vitamin - CIWA Hypokalemia - Replace potassium as needed - Check Mg Type 2 diabetes mellitus - Hold metformin - Sliding scale correction Insomnia - Hold home medications for now Hypothyroidism - Check TSH given encephalopathy DVT prophylaxis: SCD CODE STATUS: Full code 02/28/25 As per the patient he was in his trailer, went to the bathroom to take a bath, being very small bathroom, he slipped and fell on his right shoulder. He got up and walked back to the bed, was lying on his bed when his grandson found him there. Sodium is 135 Lactic acid improved from 4-2.6 Platelets 38, thrombocytopenia likely secondary to alcoholic liver disease. INR 1.6 Will continue IV cefepime. X-ray right shoulder showed degenerative disease, no fracture or dislocation. Will do PT/OT eval Continue CIWA protocol Continue thiamine, B1 and multivitamin Will do oxycodone 5 mg every 6 hours as needed for right shoulder pain Had an episode of dark-colored stools, stool occult blood positive. Hemoglobin 14.7, likely dehydration, baseline is 9. Will monitor for now. Probably needs surgery consult for upper GI endoscopy and colonoscopy. Try weaning of oxygen, since he does not use oxygen at home. He probably might need subacute rehab on discharge Will follow-up case management for discharge planning. 03/01/25 Na 133, K 2.8 replaced, INR 1.5 Platlets trending down to 28 Hb 14.7 to 12.4. No more episodes of dark stools noted. will monitor for now. Will start on iv pantoprozole 40mg bid Surgery consult if Hemoglobin trending down. Continue CIWA protocol Continue thiamine, B1 and multivitamin Will do oxycodone 5 mg every 6 hours leah and po robaxin 500mg q8h for right shoulder pain Continue PT/OT Continue to monitor for now. 03/02/25 Spoke to patient's son, Vitaliy jackson over the phone. had extensive discussion. He has been concerned about his alcohol intake and noncompliance with medications. He reported as long as he is at home Mr. Bernardino jackson follows all the directions for medications. Vitaliy has been traveling for work and has not been able to take care of Mr. Jackson in regards to alcohol intake and medications. He says it was an unsafe discharge home. When he is not home, patient seems confused, drinks heavily, has vomiting episodes and diarrhea and does not follow proper hygiene. He seemed to have worsening confusion over a period of few months. He was requesting to discharge him to a detox center or subacute rehab or [facility] facility for further management. Potassium 3.2, replaced. Hemoglobin 11.7 Platelets 29 Urine culture growing gram-negative rods No more episodes of dark stools noted. Continue IV cefepime and Zyvox for now. Will follow-up PT recommendations Case management consult for discharge planning probably to subacute rehab. 03/03/25 He is clinically getting better. Hemoglobin and platlets are stable. Working with PT. Continue IV antibiotics till discharge for E Coli UTI. Need to follow up GI for EGD and colonoscopy and liver specialist as outpatient. Counseled and educated about alcohol cessation. will follow up with case management in am for discharge planning. PDMP PDMP Reviewed: Not Reviewed Attestations 2 Medical Necessity Statement*: awaiting case management for discharge planning. Time Spent in Patient Care: 15minutes Coding Level of Care Code Acute Code for Chg Fwd Diagnoses Type 2 diabetes mellitus E11.9 Thrombocytopenia D69.6 Acute metabolic encephalopathy G93.41 Urinary tract infection N39.0 Acidosis, lactic E87.20 Alcoholic cirrhosis K70.30 Hypothyroidism E03.9 Time Spent (min) 15
[2025-03-03 16:43] VITALS: BP 108/66; PULSE 91; RESP 18; TEMP 37.1; O2SAT 94
[2025-03-03 16:49] LABS: Glucose Point of Care 169 mg/dL (70-110)
[2025-03-03] MEDS: insulin lispro 100 unit/1 mL SUBCUT ×2 (17:44→21:30)
[2025-03-03 20:00] VITALS: BP 114/64; PULSE 103; RESP 15; TEMP 37.5; O2SAT 94
[2025-03-03 20:42] LABS: Glucose Point of Care 163 mg/dL (70-110)
[2025-03-04] VITALS: BP 106/60; PULSE 96; RESP 16; TEMP 37.5; O2SAT 94
[2025-03-04] MEDS: cefepime 2,000 mg SDV 2000 MG IVP ×3 (03:17→20:31)
[2025-03-04] MEDS: sodium chloride 0.9% 1,000 ML 75 ML IV (03:18)
[2025-03-04] MEDS: pantoprazole 40 mg SDV IVP ×2 (03:18→16:08)
[2025-03-04 04:00] VITALS: BP 110/62; PULSE 96; RESP 18; TEMP 37.4; O2SAT 93
[2025-03-04 05:29] LABS: Basophils % 0.3 %; Eosinophils # 0.1 10^3/uL (0.0-0.8); Eosinophils % 1.1 %; Hematocrit 31.9 % (37-53); Lymphocytes # 1.4 10^3/uL (0.8-4.8); Lymphocytes % 13.8 %; Mean Corpuscular HGB Conc 35.1 g/dL (30-55); Mean Corpuscular Hemoglobin 33.9 pg (27-33); Mean Corpuscular Volume 96.7 fl (82-101); Mean Platelet Volume 10.8 fL (7.4-10.4); Monocytes # 0.8 10^3/uL (0.2-0.9); Monocytes % 7.9 %; Neutrophils # 7.19 10^3/uL (1.8-7.7); Neutrophils % 73.5 %; Nucleated Red Blood Cells % 0 %; Platelet Count 85 10^3/cmm (157-399); Red Cell Distribution Width 15.5 % (12.1-15.1); White Blood Count 9.78 10^3/uL (3.29-11.43)
[2025-03-04 05:41] LABS: Alanine Aminotransferase 27 U/L (0-41); Albumin Level 1.5 g/dL (3.5-5.2); Alkaline Phosphatase 75 U/L (40-130); Anion Gap 10.1 (5-19); Aspartate Amino Transferase 73 U/L (0-40); Blood Urea Nitrogen 13 mg/dL (8-23); Carbon Dioxide 20 mmol/L (22-29); Chloride 106 mmol/L (98-107); Creatinine Clr Calc Pharmacy 106.4798; Globulin 3.2 g/dL (1.3-4.6); Glomerular Filtration Rate 134.8 mL/min (90-130); Glucose 102 mg/dL (65-115); Osmolality Calculated 276 mOsm/kg (285-295); Potassium 3.1 mmol/L (3.5-5.1); Sodium 133 mmol/L (136-145); Total Bilirubin 2.3 mg/dL (0.15-1.2); Total Protein 4.7 g/dL (6.6-8.7)
[2025-03-04 06:30] LABS: Glucose Point of Care 115 mg/dL (70-110)
[2025-03-04 06:52] LABS: Slide Review Slide Review Perform
[2025-03-04 07:59] VITALS: BP 97/54; PULSE 94; RESP 18; TEMP 37.1; O2SAT 94
[2025-03-04] MEDS: folic acid 1 mg Tablet PO (08:16)
[2025-03-04] MEDS: thiamine 100 mg Tablet PO (08:16)
[2025-03-04] MEDS: multivitamin therapeutic Tablet 1 TAB PO (08:16)
--- NOTE | 2025-03-04 09:40 | PC.CHAP ---
Pastoral Care Encounter/Spiritual Assessment Type of Contact [] Declined joiners supervisor visit [] Patient/Family/Request visit [] Outpatient visit [] Follow-up visit [] Physician referral [] Code/Alert [x] Routine visit [] Staff referral [] Actively dying [] Patient sleeping [] Family support [] [] Out of room [] Palliative care [] [x] Receiving care in room [] Pre-surgical visit [] Trauma [] Long length of stay [] ICU visit [] Other: Relational/Emotional Strength [] Patient feels connected with others/family/visitors/staff [] Distress [] Loneliness/isolation [] Abandonment Spirituality of Patient [] Person of Riya [] Attends Islam of their Riya [] Believes in Prayer [] Reads Bible or Restoration materials [] There are Spiritual issues to be addressed Waist Presser Interventions [x] Prayer [] Active listening [] Non-anxious presence [] Spiritual/emotional support [] Crisis/trauma care [] Spiritual counseling [] Bereavement support [] Provided bereavement packet [] Provided Bible/devotional materials [] Provided toy/stuffed animal, coloring book to patient or family member [] Provided Communion [] Anointing/[place] [] Salvation [] Completed spiritual assessment [] Other: Impact on Illness or Injury [] Angry [] Fearful [] Anxious [] Often cries [] Exhaustion [] Unable to work [] Unable to attend [employer] [] Unable to walk/stand [] Unable to read [] Unable to drive [] Unable to eat/drink [] Unable to sleep [] Unable to be with family [] Patient intubated [] Other: Summary Time spent with patient
[2025-03-04] MEDS: methocarbamol 500 mg Tablet PO ×3 (10:38→21:13)
[2025-03-04 11:45] VITALS: BP 114/74; PULSE 95; RESP 18; TEMP 36.6; O2SAT 96
[2025-03-04 11:45] LABS: Glucose Point of Care 165 mg/dL (70-110)
[2025-03-04] MEDS: insulin lispro 100 unit/1 mL SUBCUT ×2 (12:16→21:13)
--- NOTE | 2025-03-04 15:34 | P.PN_ITS ---
Subjective 2 Subjective: Hospital course, labs appreciated. Patient seen laying comfortably in bed. Has remained hemodynamically stable and afebrile. Currently on room air. Seems to be back to his baseline mentation. Complaining of pain and swelling in his right arm. Medications: Reviewed: Yes Vitals/I&O/Wt Last Vital Signs Temp 97.8 F 03/04/25 11:45 Pulse 95 03/04/25 11:45 Resp 18 03/04/25 11:45 BP 114/74 03/04/25 11:45 Pulse Ox 96 03/04/25 11:45 O2 Del Method Room Air 03/04/25 11:45 O2 Flow Rate 1 03/01/25 08:00 03/04/25 03/04/25 03/04/25 06:59 14:59 22:59 Intake Total 922.5 / 3002.5 600 / 600 Output Total 1625 / 3825 900 / 900 Balance -702.5 / -822.5 -300 / -300 Weight last 48 hrs Weight 97.704 kg Weight 87.044 kg Physical Exam 2 Narrative: General: Patient is awake, alert and oriented x 3 Head: Normocephalic. Icteric sclera. Neck: No JVD. Cardiovascular: RRR. No gallops. No murmurs. Lungs: Clear to auscultation, no use of accessory muscles, no crackles or wheezes. Skin: Slightly jaundiced. No rashes. Abdomen: Normal bowel sounds, abdomen soft and nontender.. Extremities: No cyanosis or clubbing. Pedal onychomycosis. Musculoskeletal: No erythematous joints. Right upper extremity restricted ROM, severe tenderness. Neurological: Moves all 4 extremities. No myoclonus. Data 03/04/25 04:57 03/04/25 04:57 A&P Assessment and plan (1) Acute metabolic encephalopathy: (2) Urinary tract infection: (3) Type 2 diabetes mellitus: (4) Thrombocytopenia: (5) Acidosis, lactic: (6) Alcoholic cirrhosis: (7) Hypothyroidism: (8) Failure to thrive: Plan Bernardino Wilkins Renetta is a 64 year old male with a past medical history significant for alcoholic liver cirrhosis, type 2 diabetes mellitus, hypothyroidism, and depression who presents to the emergency department after being found down by his grandson. Patient endorses generalized malaise and fatigue. Endorses chills. Acute complicated urinary tract infection - Reflex urine culture - Status post ceftriaxone in ED - Start cefepime Acute metabolic encephalopathy Failure to thrive and overall fluid Debility physical deconditioning - Patient adamant that he did not overdose or attempt to harm himself - Grandson agrees the patient was not trying to harm himself - Monitor with continuous telemetry and pulse oximetry - Avoid further sedating medications - Monitor mentation closely Lactic acidosis - May be sequela of liver disease, metformin side effect, versus infection - Trend lactate - Treat underlying infection Alcoholic liver cirrhosis Transaminitis Hyperbilirubinemia Coagulopathy with elevated INR Thrombocytopenia Hx of GI bleed - Suspect above sequela of underlying alcoholic liver cirrhosis - No NSAIDS - Thiamine, folic acid, vitamin - CIWA Hypokalemia - Replace potassium as needed - Check Mg Type 2 diabetes mellitus - Hold metformin - Sliding scale correction Insomnia - Hold home medications for now Hypothyroidism - Check TSH given encephalopathy DVT prophylaxis: SCD CODE STATUS: Full code Plan for the day: Encephalopathy seems to be resolving. Most likely in setting of chronic alcohol use. Start on IV thiamine. Concern for UTI admission. Continue with IV cefepime to finish a 5-day course. Last dose on 03/05. Continue with CIWA protocol. DC IV fluids. Right arm swelling. Patient states swelling has been increasing since he fell. Will check duplex to rule out DVT. Will check elbow x-ray. On review does seem Vitaliy donaldson is patient's guardian. Vitaliy is requesting patient to be transferred to SNF as he is not able to take care of patient at home. Case management is working on placement to SNF. Awaiting level 2. PDMP PDMP Reviewed: Not Reviewed Attestations 2 Medical Necessity Statement*: Requires further hospitalization while safe discharge planning is sought in a patient with concerns for failure to thrive, metabolic encephalopathy in setting of chronic alcohol use, complicated UTI Diagnoses Acute metabolic encephalopathy G93.41 Urinary tract infection N39.0 Type 2 diabetes mellitus E11.9 Thrombocytopenia D69.6 Acidosis, lactic E87.20 Alcoholic cirrhosis K70.30 Hypothyroidism E03.9 Failure to thrive
--- NOTE | 2025-03-04 15:40 | USR_ITS ---
PROCEDURE INFORMATION: Exam: US Duplex Right Upper Extremity Veins, Limited Exam date and time: 03/04/2025 7:57 PM Age: 64 years old Clinical indication: Pain; Edema, localized; Upper extremity, right; Arm, upper; Patient fell in shower, striking right shoulder on 02/26/25. Now has 2+ pitting edema of the right upper extremity. ; Additional info: Right arm swelling TECHNIQUE: Imaging protocol: Real-time duplex ultrasound of the right Upper Extremity with 2-D lama scale, color Doppler flow and spectral waveform analysis with image documentation. Limited exam focused on the right upper extremity veins. COMPARISON: CR XR shoulder RT min 2V* [id number] 02/28/2025 10:11 AM FINDINGS: Right deep veins: Unremarkable. Axillary and brachial veins are patent throughout without thrombus. Normal Doppler waveforms. Normal compressibility and/or augmentation response. Visualized internal jugular and subclavian veins are patent. Superficial veins: Occlusive thrombus within cephalic. Visualized basilic veins is patent without thrombus. Soft tissues: Soft tissue edema. US/[place] [id number] IMPRESSION: 1. No evidence of deep vein thrombosis. 2. Superficial thrombophlebitis of right cephalic vein. 3. Soft tissue edema.
[2025-03-04 15:54] LABS: Glucose Point of Care 102 mg/dL (70-110)
[2025-03-04 16:00] VITALS: BP 115/68; PULSE 94; RESP 18; TEMP 37.4; O2SAT 96
[2025-03-04] MEDS: potassium chloride ER 20 mEq Tablet 80 MEQ PO (16:09)
[2025-03-04 20:00] VITALS: BP 109/65; PULSE 96; RESP 16; TEMP 36.4; O2SAT 96
[2025-03-04 21:09] LABS: Glucose Point of Care 203 mg/dL (70-110)
[2025-03-05 02:08] VITALS: BP 108/64; PULSE 97; RESP 16; TEMP 36.8; O2SAT 94
[2025-03-05] MEDS: pantoprazole 40 mg SDV IVP ×2 (02:47→15:17)
[2025-03-05 04:00] VITALS: BP 107/63; PULSE 94; RESP 16; TEMP 36.7; O2SAT 97
[2025-03-05 06:21] LABS: Glucose Point of Care 105 mg/dL (70-110)
[2025-03-05 06:32] LABS: Alanine Aminotransferase 28 U/L (0-41); Albumin Level 1.6 g/dL (3.5-5.2); Alkaline Phosphatase 85 U/L (40-130); Anion Gap 10.6 (5-19); Aspartate Amino Transferase 65 U/L (0-40); Blood Urea Nitrogen 10 mg/dL (8-23); Carbon Dioxide 20 mmol/L (22-29); Chloride 107 mmol/L (98-107); Creatinine Clr Calc Pharmacy 104.5219; Globulin 3.5 g/dL (1.3-4.6); Glomerular Filtration Rate 166.4 mL/min (90-130); Glucose 98 mg/dL (65-115); Osmolality Calculated 277 mOsm/kg (285-295); Potassium 3.6 mmol/L (3.5-5.1); Sodium 134 mmol/L (136-145); Total Bilirubin 2.3 mg/dL (0.15-1.2); Total Protein 5.1 g/dL (6.6-8.7)
[2025-03-05 08:00] VITALS: BP 108/67; PULSE 92; RESP 18; TEMP 37; O2SAT 95
[2025-03-05] MEDS: thiamine 100 mg Tablet PO (08:18)
[2025-03-05] MEDS: multivitamin therapeutic Tablet 1 TAB PO (08:18)
[2025-03-05] MEDS: methocarbamol 500 mg Tablet PO ×3 (08:18→21:16)
[2025-03-05] MEDS: folic acid 1 mg Tablet PO (08:18)
[2025-03-05] MEDS: acetaminophen 325 mg Tablet 650 MG PO ×2 (08:26→15:18)
--- NOTE | 2025-03-05 10:16 | PC.CHAP ---
Pastoral Care Encounter/Spiritual Assessment Type of Contact [] Declined taxation consultant visit [] Patient/Family/Request visit [] Outpatient visit [] Follow-up visit [] Physician referral [] Code/Alert [x] Routine visit [] Staff referral [] Actively dying [] Patient sleeping [] Family support [] [] Out of room [] Palliative care [] [] Receiving care in room [] Pre-surgical visit [] Trauma [] Long length of stay [] ICU visit [] Other: Relational/Emotional Strength [x] Patient feels connected with others/family/visitors/staff [] Distress [] Loneliness/isolation [] Abandonment Spirituality of Patient [x] Person of Riya [] Attends Synagogue of their Riya [x] Believes in Prayer [] Reads Bible or Adventist materials [] There are Spiritual issues to be addressed Plating Foreman Interventions [x] Prayer [x] Active listening [x] Non-anxious presence [x] Spiritual/emotional support [] Crisis/trauma care [] Spiritual counseling [] Bereavement support [] Provided bereavement packet [] Provided Bible/devotional materials [] Provided toy/stuffed animal, coloring book to patient or family member [] Provided Communion [] Anointing/[address] [] Salvation [x] Completed spiritual assessment [] Other: Impact on Illness or Injury [] Angry [] Fearful [] Anxious [] Often cries [] Exhaustion [] Unable to work [] Unable to attend faith [] Unable to walk/stand [] Unable to read [] Unable to drive [] Unable to eat/drink [] Unable to sleep [] Unable to be with family [] Patient intubated [] Other: Summary Time spent with patient 5 min
--- NOTE | 2025-03-05 11:13 | XRR_ITS ---
PROCEDURE INFORMATION: Exam: XR Right Elbow Exam date and time: 03/05/2025 11:33 AM Age: 64 years old Clinical indication: Injury or trauma; Fall; Crushing; Elbow; Right; Additional info: Fall, swelling TECHNIQUE: Imaging protocol: Radiologic exam of the right elbow. Views: 1 or 2 views. COMPARISON: [place] [id number] 03/04/2025 7:57 PM FINDINGS: Bones/joints: No definite fracture or joint dislocation seen. Soft tissues: There is diffuse soft tissue swelling. Other findings: Evaluation is suboptimal as a true lateral view was not obtained. XR/XR elbow RT 2V [id number] IMPRESSION: 1. Suboptimal study. No definite fracture. 2. Diffuse soft tissue swelling.
--- NOTE | 2025-03-05 11:13 | XRR_ITS ---
PROCEDURE INFORMATION: Exam: XR Right Forearm Exam date and time: 03/05/2025 11:33 AM Age: 64 years old Clinical indication: Injury or trauma; Fall; Blunt trauma (contusions or hematomas); Arm, lower; Right; Additional info: Swelling, post fall TECHNIQUE: Imaging protocol: Radiologic exam of the right forearm. Views: 2 views. COMPARISON: [place] [id number] 03/04/2025 7:57 PM FINDINGS: Bones/joints: No fracture. Soft tissues: Diffuse soft tissue swelling. XR/XR forearm RT 2V [id number] IMPRESSION: Diffuse soft tissue swelling
[2025-03-05 11:24] LABS: Glucose Point of Care 164 mg/dL (70-110)
[2025-03-05 11:37] VITALS: BP 98/59; PULSE 90; RESP 18; TEMP 36.8; O2SAT 96
[2025-03-05] MEDS: insulin lispro 100 unit/1 mL SUBCUT ×2 (12:22→21:16)
--- NOTE | 2025-03-05 12:51 | P.PN_ITS ---
Subjective 2 Subjective: No acute events overnight. Patient seen working with physical therapy today. Seems to be at his baseline mentation. Denies any nausea, vomiting, headache. Has remained hemodynamically stable and afebrile. Medications: Reviewed: Yes Vitals/I&O/Wt Last Vital Signs Temp 98.3 F 03/05/25 11:37 Pulse 90 03/05/25 11:37 Resp 18 03/05/25 11:37 BP 98/59 03/05/25 11:37 Pulse Ox 96 03/05/25 11:37 O2 Del Method Room Air 03/05/25 11:37 O2 Flow Rate 1 03/01/25 08:00 03/04/25 03/05/25 03/05/25 22:59 06:59 14:59 Intake Total 1360 / 1960 480 / 480 Output Total 1100 / 2000 1600 / 3600 1000 / 1000 Balance 260 / -40 -1600 / -1640 -520 / -520 Weight last 48 hrs Weight 94.529 kg Weight 93.894 kg Weight 97.704 kg Physical Exam 2 Narrative: General: Patient is awake, alert and oriented x 3 Head: Normocephalic. Icteric sclera. Neck: No JVD. Cardiovascular: RRR. No gallops. No murmurs. Lungs: Clear to auscultation, no use of accessory muscles, no crackles or wheezes. Skin: Slightly jaundiced. No rashes. Abdomen: Normal bowel sounds, abdomen soft and nontender.. Extremities: No cyanosis or clubbing. Pedal onychomycosis. Musculoskeletal: No erythematous joints. Right upper extremity restricted ROM, severe tenderness. Neurological: Moves all 4 extremities. No myoclonus. Data 03/04/25 04:57 03/05/25 05:13 A&P Assessment and plan (1) Acute metabolic encephalopathy: (2) Urinary tract infection: (3) Type 2 diabetes mellitus: (4) Thrombocytopenia: (5) Acidosis, lactic: (6) Alcoholic cirrhosis: (7) Hypothyroidism: (8) Failure to thrive: Plan Bernardino Jackson is a 64 year old male with a past medical history significant for alcoholic liver cirrhosis, type 2 diabetes mellitus, hypothyroidism, and depression who presents to the emergency department after being found down by his grandson. Patient endorses generalized malaise and fatigue. Endorses chills. Acute complicated urinary tract infection Follow-up blood culture urine culture. Finished treatment with IV ceftriaxone and cefepime for overall 7 days. DC Metcalf catheter. Acute metabolic encephalopathy Failure to thrive and overall fluid Debility physical deconditioning - Patient adamant that he did not overdose or attempt to harm himself - Grandson agrees the patient was not trying to harm himself - Monitor with continuous telemetry and pulse oximetry - Avoid further sedating medications - Monitor mentation closely Lactic acidosis - May be sequela of liver disease, metformin side effect, versus infection - Trend lactate - Treat underlying infection Alcoholic liver cirrhosis Transaminitis Hyperbilirubinemia Coagulopathy with elevated INR Thrombocytopenia Hx of GI bleed - Suspect above sequela of underlying alcoholic liver cirrhosis - No NSAIDS - Thiamine, folic acid, vitamin - CIWA Hypokalemia - Replace potassium as needed - Check Mg Type 2 diabetes mellitus - Hold metformin - Sliding scale correction Insomnia - Hold home medications for now Hypothyroidism - Check TSH given encephalopathy DVT prophylaxis: SCD CODE STATUS: Full code Plan for the day: Encephalopathy resolving. Complaining of right arm pain and tenderness. Upper limb Doppler concerning for superficial vein thrombosis. Will treat empirically with heat pads and arm elevation. Patient is agreeable for elbow and arm x-ray today. Current IV course antibiotics for UTI. DC Metcalf catheter. On review does seem Vitaliy jackson is patient's guardian. Vitaliy is requesting patient to be transferred to SNF as he is not able to take care of patient at home. Patient has been accepted to SNF. Awaiting level 2. PDMP PDMP Reviewed: Not Reviewed Attestations 2 Medical Necessity Statement*: Requested hospitalization while level 2 is awaited before transitioning to SNF in a patient with concerns for failure to thrive given chronic alcoholic liver cirrhosis, UTI Diagnoses Acute metabolic encephalopathy G93.41 Urinary tract infection N39.0 Type 2 diabetes mellitus E11.9 Thrombocytopenia D69.6 Acidosis, lactic E87.20 Alcoholic cirrhosis K70.30 Hypothyroidism E03.9 Failure to thrive
[2025-03-05] MEDS: thiamine 500 MG in sodium chloride 0.9% (100 ml) 100 ML 210 MG IV (14:03)
[2025-03-05] MEDS: gabapentin 100 mg Capsule PO ×2 (15:17→21:16)
--- NOTE | 2025-03-05 15:41 | PC.OT ---
OT TREATMENT ATTEMPTED; OFFERED GROOMING AND UE (L) EXERCISES; PATIENT DECLINED BOTH.
[2025-03-05 16:00] VITALS: BP 110/68; PULSE 93; RESP 17; TEMP 36.9; O2SAT 97
[2025-03-05 16:32] LABS: Glucose Point of Care 128 mg/dL (70-110)
[2025-03-05 20:07] LABS: Glucose Point of Care 306 mg/dL (70-110)
[2025-03-05 21:11] VITALS: BP 102/58; PULSE 92; RESP 17; TEMP 36.8; O2SAT 98
[2025-03-06 00:48] VITALS: BP 107/58; PULSE 95; RESP 16; TEMP 36.8; O2SAT 95
[2025-03-06] MEDS: pantoprazole 40 mg SDV IVP ×2 (02:22→14:21)
[2025-03-06 06:23] VITALS: BP 104/63; PULSE 99; RESP 17; TEMP 36.7; O2SAT 95
[2025-03-06 06:24] LABS: Glucose Point of Care 88 mg/dL (70-110)
[2025-03-06 07:33] VITALS: BP 103/63; PULSE 94; RESP 16; TEMP 36.9; O2SAT 95
[2025-03-06] MEDS: thiamine 100 mg/mL 2mL SDV IVP (09:22)
[2025-03-06] MEDS: folic acid 1 mg Tablet PO (09:22)
[2025-03-06] MEDS: methocarbamol 500 mg Tablet PO ×3 (09:22→20:09)
[2025-03-06] MEDS: gabapentin 100 mg Capsule PO ×3 (09:22→20:09)
[2025-03-06] MEDS: multivitamin therapeutic Tablet 1 TAB PO (09:23)
[2025-03-06] MEDS: thiamine 100 mg Tablet PO (09:23)
[2025-03-06] MEDS: TRAMadol 50 mg Tablet PO ×2 (11:25→18:10)
[2025-03-06 11:30] VITALS: BP 106/67; PULSE 98; RESP 16; TEMP 36.5; O2SAT 93
[2025-03-06 11:46] LABS: Glucose Point of Care 147 mg/dL (70-110)
[2025-03-06] MEDS: insulin lispro 100 unit/1 mL SUBCUT ×3 (13:19→21:10)
--- NOTE | 2025-03-06 14:19 | P.PN_ITS ---
Subjective 2 Subjective: No new complaints. Awaiting level 2. Remains hemodynamically stable. Working with PT. Medications: Reviewed: Yes Vitals/I&O/Wt Last Vital Signs Temp 97.7 F 03/06/25 11:30 Pulse 98 03/06/25 11:30 Resp 16 03/06/25 11:30 BP 106/67 03/06/25 11:30 Pulse Ox 93 03/06/25 11:30 O2 Del Method Room Air 03/06/25 11:30 O2 Flow Rate 1 03/01/25 08:00 03/05/25 03/06/25 03/06/25 22:59 06:59 14:59 Intake Total 345 / 825 480 / 480 Output Total 600 / 1600 350 / 350 Balance -255 / -775 130 / 130 Weight last 48 hrs Weight 92.442 kg Weight 94.529 kg Weight 93.894 kg Physical Exam 2 Narrative: General: Patient is awake, alert and oriented x 3 Head: Normocephalic. Icteric sclera. Neck: No JVD. Cardiovascular: RRR. No gallops. No murmurs. Lungs: Clear to auscultation, no use of accessory muscles, no crackles or wheezes. Skin: Slightly jaundiced. No rashes. Abdomen: Normal bowel sounds, abdomen soft and nontender.. Extremities: No cyanosis or clubbing. Pedal onychomycosis. Musculoskeletal: No erythematous joints. Right upper extremity restricted ROM, severe tenderness. Neurological: Moves all 4 extremities. No myoclonus. Data 03/04/25 04:57 03/05/25 05:13 A&P Assessment and plan (1) Acute metabolic encephalopathy: (2) Urinary tract infection: (3) Type 2 diabetes mellitus: (4) Thrombocytopenia: (5) Acidosis, lactic: (6) Alcoholic cirrhosis: (7) Hypothyroidism: (8) Failure to thrive: Plan Bernardino Jackson is a 64 year old male with a past medical history significant for alcoholic liver cirrhosis, type 2 diabetes mellitus, hypothyroidism, and depression who presents to the emergency department after being found down by his grandson. Patient endorses generalized malaise and fatigue. Endorses chills. Acute complicated urinary tract infection Follow-up blood culture urine culture. Finished treatment with IV ceftriaxone and cefepime for overall 7 days. DC Metcalf catheter. Acute metabolic encephalopathy Failure to thrive and overall fluid Debility physical deconditioning - Patient adamant that he did not overdose or attempt to harm himself - Grandson agrees the patient was not trying to harm himself - Monitor with continuous telemetry and pulse oximetry - Avoid further sedating medications - Monitor mentation closely Lactic acidosis - May be sequela of liver disease, metformin side effect, versus infection - Trend lactate - Treat underlying infection Alcoholic liver cirrhosis Transaminitis Hyperbilirubinemia Coagulopathy with elevated INR Thrombocytopenia Hx of GI bleed - Suspect above sequela of underlying alcoholic liver cirrhosis - No NSAIDS - Thiamine, folic acid, vitamin - CIWA Hypokalemia - Replace potassium as needed - Check Mg Type 2 diabetes mellitus - Hold metformin - Sliding scale correction Insomnia - Hold home medications for now Hypothyroidism - Check TSH given encephalopathy DVT prophylaxis: SCD CODE STATUS: Full code Plan for the day: Continue with current medications. Continue to work with physical therapy. On review does seem Vitaliy jackson is patient's guardian. Vitaliy is requesting patient to be transferred to SNF as he is not able to take care of patient at home. Patient has been accepted to SNF. Awaiting level 2. PDMP PDMP Reviewed: Not Reviewed Attestations 2 Medical Necessity Statement*: Requested hospitalization while level 2 is achieved to transition to SNF for a patient admitted for failure to thrive in setting of alcoholic liver cirrhosis, UTI Diagnoses Acute metabolic encephalopathy G93.41 Urinary tract infection N39.0 Type 2 diabetes mellitus E11.9 Thrombocytopenia D69.6 Acidosis, lactic E87.20 Alcoholic cirrhosis K70.30 Hypothyroidism E03.9 Failure to thrive
[2025-03-06 15:40] VITALS: BP 104/64; PULSE 97; RESP 16; TEMP 37.9; O2SAT 98
[2025-03-06 16:43] LABS: Glucose Point of Care 164 mg/dL (70-110)
[2025-03-06] MEDS: temazepam 15 mg Capsule PO (20:12)
[2025-03-06 20:47] LABS: Glucose Point of Care 192 mg/dL (70-110)
[2025-03-06 21:00] VITALS: BP 115/67; PULSE 100; RESP 16; TEMP 36.9; O2SAT 98
[2025-03-07 01:15] VITALS: BP 128/66; PULSE 90; RESP 16; TEMP 36.8; O2SAT 98
[2025-03-07] MEDS: pantoprazole 40 mg SDV IVP ×2 (03:43→14:32)
[2025-03-07 04:12] VITALS: BP 104/63; PULSE 96; RESP 16; TEMP 37.2; O2SAT 94
[2025-03-07 06:14] LABS: Glucose Point of Care 89 mg/dL (70-110)
[2025-03-07 08:00] VITALS: BP 101/62; PULSE 91; RESP 17; TEMP 36.8; O2SAT 94
[2025-03-07] MEDS: gabapentin 100 mg Capsule PO ×3 (09:32→21:24)
[2025-03-07] MEDS: folic acid 1 mg Tablet PO (09:32)
[2025-03-07] MEDS: thiamine 100 mg/mL 2mL SDV IVP (09:33)
[2025-03-07] MEDS: thiamine 100 mg Tablet PO (09:33)
[2025-03-07] MEDS: methocarbamol 500 mg Tablet PO ×3 (09:33→21:24)
[2025-03-07] MEDS: multivitamin therapeutic Tablet 1 TAB PO (09:33)
[2025-03-07 10:42] LABS: Glucose Point of Care 115 mg/dL (70-110)
[2025-03-07 12:00] VITALS: BP 99/56; PULSE 103; RESP 16; TEMP 37.3; O2SAT 96
--- NOTE | 2025-03-07 12:30 | P.PN_ITS ---
Subjective 2 Subjective: No new complaints. Awaiting level 2. Remains hemodynamically stable. Working with PT. Medications: Reviewed: Yes Vitals/I&O/Wt Last Vital Signs Temp 99.1 F 03/07/25 12:00 Pulse 103 H 03/07/25 12:00 Resp 16 03/07/25 12:00 BP 99/56 03/07/25 12:00 Pulse Ox 96 03/07/25 12:00 O2 Del Method Room Air 03/07/25 12:00 O2 Flow Rate 1 03/01/25 08:00 03/06/25 03/07/25 03/07/25 22:59 06:59 14:59 Intake Total 720 / 1200 200 / 1400 240 / 240 Balance 720 / 850 200 / 1050 240 / 240 Weight last 48 hrs Weight 93.531 kg Weight 92.442 kg Physical Exam 2 Narrative: General: Patient is awake, alert and oriented x 3 Head: Normocephalic. Icteric sclera. Neck: No JVD. Cardiovascular: RRR. No gallops. No murmurs. Lungs: Clear to auscultation, no use of accessory muscles, no crackles or wheezes. Skin: Slightly jaundiced. No rashes. Abdomen: Normal bowel sounds, abdomen soft and nontender.. Extremities: No cyanosis or clubbing. Pedal onychomycosis. Musculoskeletal: No erythematous joints. Right upper extremity restricted ROM, severe tenderness. Neurological: Moves all 4 extremities. No myoclonus. Data 03/04/25 04:57 03/05/25 05:13 A&P Assessment and plan (1) Acute metabolic encephalopathy: (2) Urinary tract infection: (3) Type 2 diabetes mellitus: (4) Thrombocytopenia: (5) Acidosis, lactic: (6) Alcoholic cirrhosis: (7) Hypothyroidism: (8) Failure to thrive: (9) Edema due to hypoalbuminemia: (10) Moderate protein-energy malnutrition: Plan Bernardino Jackson is a 64 year old male with a past medical history significant for alcoholic liver cirrhosis, type 2 diabetes mellitus, hypothyroidism, and depression who presents to the emergency department after being found down by his grandson. Patient endorses generalized malaise and fatigue. Endorses chills. Acute complicated urinary tract infection Follow-up blood culture urine culture. Finished treatment with IV ceftriaxone and cefepime for overall 7 days. DC Metcalf catheter. Acute metabolic encephalopathy Failure to thrive and overall fluid Debility physical deconditioning - Patient adamant that he did not overdose or attempt to harm himself - Grandson agrees the patient was not trying to harm himself - Monitor with continuous telemetry and pulse oximetry - Avoid further sedating medications - Monitor mentation closely Lactic acidosis - May be sequela of liver disease, metformin side effect, versus infection - Trend lactate - Treat underlying infection Alcoholic liver cirrhosis Transaminitis Hyperbilirubinemia Coagulopathy with elevated INR Thrombocytopenia Hx of GI bleed - Suspect above sequela of underlying alcoholic liver cirrhosis - No NSAIDS - Thiamine, folic acid, vitamin - CIWA Hypokalemia - Replace potassium as needed - Check Mg Type 2 diabetes mellitus - Hold metformin - Sliding scale correction Insomnia - Hold home medications for now Hypothyroidism - Check TSH given encephalopathy DVT prophylaxis: SCD CODE STATUS: Full code Plan for the day: Patient at baseline mentation. Continue with current medication. Add protein shakes with each meal. Patient having severe hypoalbuminemia. Edema/anasarca due to hypoalbuminemia. Lasix 20 mg oral daily. Out of bed to chair. Repeat labs in AM. On review does seem Vitaliy jackson is patient's guardian. Vitaliy is requesting patient to be transferred to SNF as he is not able to take care of patient at home. Patient has been accepted to SNF. Awaiting level 2. PDMP PDMP Reviewed: Not Reviewed Attestations 2 Medical Necessity Statement*: Requires further hospitalization while level 2 was awaited for safe discharge planning in a patient with concerns of failure to thrive, severe protein energy malnutrition in setting of chronic alcohol liver cirrhosis Diagnoses Acute metabolic encephalopathy G93.41 Urinary tract infection N39.0 Type 2 diabetes mellitus E11.9 Thrombocytopenia D69.6 Acidosis, lactic E87.20 Alcoholic cirrhosis K70.30 Hypothyroidism E03.9 Failure to thrive Edema due to hypoalbuminemia E88.09 Moderate protein-energy malnutrition E44.0
[2025-03-07] MEDS: FUROsemide 20 mg Tablet PO (13:43)
[2025-03-07 15:51] VITALS: BP 117/69; PULSE 101; RESP 17; TEMP 37.2; O2SAT 97
[2025-03-07 16:39] LABS: Glucose Point of Care 190 mg/dL (70-110)
[2025-03-07 19:23] LABS: Glucose Point of Care 162 mg/dL (70-110)
[2025-03-07] MEDS: insulin lispro 100 unit/1 mL SUBCUT ×2 (19:29→22:14)
[2025-03-07 20:26] LABS: Glucose Point of Care 157 mg/dL (70-110)
[2025-03-07 21:09] VITALS: BP 111/61; PULSE 99; RESP 23; TEMP 37.4; O2SAT 95
[2025-03-07] MEDS: temazepam 15 mg Capsule PO (21:27)
[2025-03-08] VITALS (8 sets, daily range): BP systolic 96–109; BP diastolic 59–67; PULSE 92–100; RESP 15–18; TEMP 36.6–37.4; O2SAT 92–97; BMI 29.5
[2025-03-08] MEDS: pantoprazole 40 mg SDV IVP ×2 (05:44→15:11)
[2025-03-08 05:45] LABS: Basophils # 0.1 10^3/uL (0.0-0.1); Basophils % 0.5 %; Eosinophils # 0.1 10^3/uL (0.0-0.8); Eosinophils % 1.5 %; Hematocrit 32.6 % (37-53); Lymphocytes # 1.7 10^3/uL (0.8-4.8); Lymphocytes % 18.4 %; Mean Corpuscular HGB Conc 34.4 g/dL (30-55); Mean Corpuscular Hemoglobin 34.5 pg (27-33); Mean Corpuscular Volume 100.3 fl (82-101); Monocytes # 0.7 10^3/uL (0.2-0.9); Monocytes % 7.7 %; Neutrophils # 6.48 10^3/uL (1.8-7.7); Neutrophils % 70.3 %; Nucleated Red Blood Cells % 0 %; Platelet Count 171 10^3/cmm (157-399); Red Blood Count 3.25 10^6/uL (3.85-5.65); Red Cell Distribution Width 16.4 % (12.1-15.1); White Blood Count 9.23 10^3/uL (3.29-11.43)
[2025-03-08 06:06] LABS: Alanine Aminotransferase 21 U/L (0-41); Albumin Level 1.5 g/dL (3.5-5.2); Alkaline Phosphatase 82 U/L (40-130); Anion Gap 8.7 (5-19); Aspartate Amino Transferase 39 U/L (0-40); Blood Urea Nitrogen 8 mg/dL (8-23); Calcium 6.9 mg/dL (8.5-10.5); Carbon Dioxide 25 mmol/L (22-29); Chloride 105 mmol/L (98-107); Creatinine Clr Calc Pharmacy 104.2886; Globulin 4.3 g/dL (1.3-4.6); Glomerular Filtration Rate 134.8 mL/min (90-130); Glucose 95 mg/dL (65-115); Osmolality Calculated 278 mOsm/kg (285-295); Potassium 3.7 mmol/L (3.5-5.1); Sodium 135 mmol/L (136-145); Total Bilirubin 2.2 mg/dL (0.15-1.2); Total Protein 5.8 g/dL (6.6-8.7)
[2025-03-08 07:13] LABS: Glucose Point of Care 99 mg/dL (70-110)
[2025-03-08] MEDS: thiamine 100 mg/mL 2mL SDV IVP (08:23)
[2025-03-08] MEDS: methocarbamol 500 mg Tablet PO ×3 (08:23→20:46)
[2025-03-08] MEDS: folic acid 1 mg Tablet PO (08:23)
[2025-03-08] MEDS: multivitamin therapeutic Tablet 1 TAB PO (08:23)
[2025-03-08] MEDS: gabapentin 100 mg Capsule PO ×3 (08:23→20:46)
[2025-03-08] MEDS: thiamine 100 mg Tablet PO (08:23)
[2025-03-08 10:42] LABS: Glucose Point of Care 152 mg/dL (70-110)
[2025-03-08] MEDS: insulin lispro 100 unit/1 mL SUBCUT ×2 (11:54→21:01)
--- NOTE | 2025-03-08 14:46 | P.PN_ITS ---
Subjective 2 Subjective: No acute events overnight. Patient has remained hemodynamically stable and afebrile. Awake and alert. Denies any nausea, vomiting, headache. Medications: Reviewed: Yes Vitals/I&O/Wt Last Vital Signs Temp 97.8 F 03/08/25 12:00 Pulse 100 03/08/25 12:00 Resp 17 03/08/25 12:00 BP 100/59 03/08/25 12:00 Pulse Ox 96 03/08/25 12:00 O2 Del Method Room Air 03/08/25 12:00 O2 Flow Rate 1 03/01/25 08:00 03/07/25 03/08/25 03/08/25 22:59 06:59 14:59 Intake Total 270 / 510 480 / 480 Output Total 810 / 810 Balance -540 / -300 480 / 480 Weight last 48 hrs Weight 93.44 kg Weight 93.531 kg Physical Exam 2 Narrative: General: Patient is awake, alert and oriented x 3 Head: Normocephalic. Icteric sclera. Neck: No JVD. Cardiovascular: RRR. No gallops. No murmurs. Lungs: Clear to auscultation, no use of accessory muscles, no crackles or wheezes. Skin: Slightly jaundiced. No rashes. Abdomen: Normal bowel sounds, abdomen soft and nontender.. Extremities: No cyanosis or clubbing. Pedal onychomycosis. Musculoskeletal: No erythematous joints. Right upper extremity restricted ROM, severe tenderness. Neurological: Moves all 4 extremities. No myoclonus. Data 03/08/25 05:25 03/08/25 05:25 A&P Assessment and plan (1) Acute metabolic encephalopathy: (2) Urinary tract infection: (3) Type 2 diabetes mellitus: (4) Thrombocytopenia: (5) Acidosis, lactic: (6) Alcoholic cirrhosis: (7) Hypothyroidism: (8) Failure to thrive: (9) Edema due to hypoalbuminemia: (10) Moderate protein-energy malnutrition: Plan Bernardino Wilkins Renetta is a 64 year old male with a past medical history significant for alcoholic liver cirrhosis, type 2 diabetes mellitus, hypothyroidism, and depression who presents to the emergency department after being found down by his grandson. Patient endorses generalized malaise and fatigue. Endorses chills. Acute complicated urinary tract infection Follow-up blood culture urine culture. Finished treatment with IV ceftriaxone and cefepime for overall 7 days. DC Metcalf catheter. Acute metabolic encephalopathy Failure to thrive and overall fluid Debility physical deconditioning - Patient adamant that he did not overdose or attempt to harm himself - Grandson agrees the patient was not trying to harm himself - Monitor with continuous telemetry and pulse oximetry - Avoid further sedating medications - Monitor mentation closely Lactic acidosis - May be sequela of liver disease, metformin side effect, versus infection - Trend lactate - Treat underlying infection Alcoholic liver cirrhosis Transaminitis Hyperbilirubinemia Coagulopathy with elevated INR Thrombocytopenia Hx of GI bleed - Suspect above sequela of underlying alcoholic liver cirrhosis - No NSAIDS - Thiamine, folic acid, vitamin - CIWA Hypokalemia - Replace potassium as needed - Check Mg Type 2 diabetes mellitus - Hold metformin - Sliding scale correction Insomnia - Hold home medications for now Hypothyroidism - Check TSH given encephalopathy DVT prophylaxis: SCD CODE STATUS: Full code Plan for the day: Continue with current treatment. Continue with high-protein diet along with oral Lasix 20 mg daily. Appreciate blood work today. Does have hypocalcemia but corrected in setting of hypoalbuminemia. Given Lasix and watch for contraction alkalosis. Appreciate bladder scan without any concern for retention of urine. On review does seem Vitaliy donaldson is patient's guardian. Vitaliy is requesting patient to be transferred to SNF as he is not able to take care of patient at home. Patient has been accepted to SNF. Awaiting level 2. PDMP PDMP Reviewed: Not Reviewed Attestations 2 Medical Necessity Statement*: Requires further hospitalization while level 2 is awiated Diagnoses Acute metabolic encephalopathy G93.41 Urinary tract infection N39.0 Type 2 diabetes mellitus E11.9 Thrombocytopenia D69.6 Acidosis, lactic E87.20 Alcoholic cirrhosis K70.30 Hypothyroidism E03.9 Failure to thrive Edema due to hypoalbuminemia E88.09 Moderate protein-energy malnutrition E44.0
[2025-03-08 16:52] LABS: Glucose Point of Care 126 mg/dL (70-110)
[2025-03-08 20:30] LABS: Glucose Point of Care 172 mg/dL (70-110)
[2025-03-08] MEDS: temazepam 15 mg Capsule PO (20:46)
[2025-03-08] MEDS: TRAMadol 50 mg Tablet PO (20:46)
[2025-03-09] VITALS (8 sets, daily range): BP systolic 96–110; BP diastolic 54–70; PULSE 79–100; RESP 14–24; TEMP 36.6–37.2; O2SAT 95–97
[2025-03-09] MEDS: pantoprazole 40 mg SDV IVP ×2 (03:44→14:46)
[2025-03-09 06:49] LABS: Glucose Point of Care 102 mg/dL (70-110)
[2025-03-09] MEDS: folic acid 1 mg Tablet PO (09:22)
[2025-03-09] MEDS: methocarbamol 500 mg Tablet PO ×3 (09:22→20:36)
[2025-03-09] MEDS: multivitamin therapeutic Tablet 1 TAB PO (09:22)
[2025-03-09] MEDS: gabapentin 100 mg Capsule PO ×3 (09:22→20:36)
[2025-03-09] MEDS: thiamine 100 mg Tablet PO (09:22)
[2025-03-09 12:02] LABS: Glucose Point of Care 172 mg/dL (70-110)
[2025-03-09] MEDS: insulin lispro 100 unit/1 mL SUBCUT ×3 (12:16→20:36)
--- NOTE | 2025-03-09 13:54 | P.PN_ITS ---
Subjective 2 Subjective: No new complaints. Awake and alert. Working well with physical therapy. No concerns for urinary retention Medications: Reviewed: Yes Vitals/I&O/Wt Last Vital Signs Temp 98.4 F 03/09/25 08:00 Pulse 93 03/09/25 08:00 Resp 24 H 03/09/25 08:00 BP 96/70 03/09/25 08:00 Pulse Ox 97 03/09/25 08:00 O2 Del Method Room Air 03/09/25 08:00 O2 Flow Rate 1 03/01/25 08:00 03/08/25 03/09/25 03/09/25 22:59 06:59 14:59 Intake Total 120 / 600 1200 / 1800 Output Total 400 / 400 Balance 120 / 600 800 / 1400 Weight last 48 hrs Weight 93.44 kg Weight 93.44 kg Physical Exam 2 Narrative: General: Patient is awake, alert and oriented x 3 Head: Normocephalic. Icteric sclera. Neck: No JVD. Cardiovascular: RRR. No gallops. No murmurs. Lungs: Clear to auscultation, no use of accessory muscles, no crackles or wheezes. Skin: Slightly jaundiced. No rashes. Abdomen: Normal bowel sounds, abdomen soft and nontender.. Extremities: No cyanosis or clubbing. Pedal onychomycosis. Musculoskeletal: No erythematous joints. Right upper extremity restricted ROM, severe tenderness. Neurological: Moves all 4 extremities. No myoclonus. Data 03/08/25 05:25 03/08/25 05:25 A&P Assessment and plan (1) Acute metabolic encephalopathy: (2) Urinary tract infection: (3) Type 2 diabetes mellitus: (4) Thrombocytopenia: (5) Acidosis, lactic: (6) Alcoholic cirrhosis: (7) Hypothyroidism: (8) Failure to thrive: (9) Edema due to hypoalbuminemia: (10) Moderate protein-energy malnutrition: Plan Bernardino Franky Renetta is a 64 year old male with a past medical history significant for alcoholic liver cirrhosis, type 2 diabetes mellitus, hypothyroidism, and depression who presents to the emergency department after being found down by his grandson. Patient endorses generalized malaise and fatigue. Endorses chills. Acute complicated urinary tract infection Follow-up blood culture urine culture. Finished treatment with IV ceftriaxone and cefepime for overall 7 days. DC Metcalf catheter. Acute metabolic encephalopathy Failure to thrive and overall fluid Debility physical deconditioning - Patient adamant that he did not overdose or attempt to harm himself - Grandson agrees the patient was not trying to harm himself - Monitor with continuous telemetry and pulse oximetry - Avoid further sedating medications - Monitor mentation closely Lactic acidosis - May be sequela of liver disease, metformin side effect, versus infection - Trend lactate - Treat underlying infection Alcoholic liver cirrhosis Transaminitis Hyperbilirubinemia Coagulopathy with elevated INR Thrombocytopenia Hx of GI bleed - Suspect above sequela of underlying alcoholic liver cirrhosis - No NSAIDS - Thiamine, folic acid, vitamin - CIWA Hypokalemia - Replace potassium as needed - Check Mg Type 2 diabetes mellitus - Hold metformin - Sliding scale correction Insomnia - Hold home medications for now Hypothyroidism - Check TSH given encephalopathy DVT prophylaxis: SCD CODE STATUS: Full code Plan for the day: Continue with physical therapy evaluation. Tramadol as needed. Awaiting level 2 to be approved before transitioning to SNF. Appreciate bladder scan without any concern for retention of urine. On review does seem Vitaliy donaldson is patient's guardian. Vitaliy is requesting patient to be transferred to SNF as he is not able to take care of patient at home. Patient has been accepted to SNF. Awaiting level 2. PDMP PDMP Reviewed: Not Reviewed Attestations 2 Medical Necessity Statement*: Waiting level 2 will be approved with plan to transition to SNF. Diagnoses Acute metabolic encephalopathy G93.41 Urinary tract infection N39.0 Type 2 diabetes mellitus E11.9 Thrombocytopenia D69.6 Acidosis, lactic E87.20 Alcoholic cirrhosis K70.30 Hypothyroidism E03.9 Failure to thrive Edema due to hypoalbuminemia E88.09 Moderate protein-energy malnutrition E44.0
[2025-03-09] MEDS: FUROsemide 20 mg Tablet PO (14:47)
[2025-03-09 17:08] LABS: Glucose Point of Care 158 mg/dL (70-110)
[2025-03-09 20:24] LABS: Glucose Point of Care 200 mg/dL (70-110)
[2025-03-09] MEDS: temazepam 15 mg Capsule PO (20:36)
[2025-03-10] VITALS (8 sets, daily range): BP systolic 92–170; BP diastolic 57–84; PULSE 68–105; RESP 13–17; TEMP 36.3–37.4; O2SAT 93–97
[2025-03-10] MEDS: pantoprazole 40 mg SDV IVP ×2 (02:26→15:27)
[2025-03-10] MEDS: TRAMadol 50 mg Tablet PO (02:31)
[2025-03-10 05:16] LABS: Basophils # 0.1 10^3/uL (0.0-0.1); Basophils % 0.7 %; Eosinophils # 0.1 10^3/uL (0.0-0.8); Eosinophils % 1.4 %; Hematocrit 32.2 % (37-53); Lymphocytes # 1.5 10^3/uL (0.8-4.8); Lymphocytes % 20.3 %; Mean Corpuscular HGB Conc 33.9 g/dL (30-55); Mean Corpuscular Volume 100.3 fl (82-101); Mean Platelet Volume 9.2 fL (7.4-10.4); Monocytes # 0.7 10^3/uL (0.2-0.9); Monocytes % 9.1 %; Neutrophils # 5.17 10^3/uL (1.8-7.7); Nucleated Red Blood Cells % 0 %; Platelet Count 182 10^3/cmm (157-399); Red Blood Count 3.21 10^6/uL (3.85-5.65); Red Cell Distribution Width 15.9 % (12.1-15.1)
[2025-03-10 05:35] LABS: Alanine Aminotransferase 22 U/L (0-41); Albumin Level 1.6 g/dL (3.5-5.2); Alkaline Phosphatase 83 U/L (40-130); Anion Gap 10.3 (5-19); Aspartate Amino Transferase 39 U/L (0-40); Blood Urea Nitrogen 7 mg/dL (8-23); Carbon Dioxide 24 mmol/L (22-29); Chloride 104 mmol/L (98-107); Creatinine Clr Calc Pharmacy 104.2886; Globulin 4.5 g/dL (1.3-4.6); Glomerular Filtration Rate 166.4 mL/min (90-130); Glucose 94 mg/dL (65-115); Osmolality Calculated 278 mOsm/kg (285-295); Potassium 3.3 mmol/L (3.5-5.1); Sodium 135 mmol/L (136-145); Total Bilirubin 2.1 mg/dL (0.15-1.2); Total Protein 6.1 g/dL (6.6-8.7)
[2025-03-10] MEDS: thiamine 100 mg Tablet PO (08:54)
[2025-03-10] MEDS: multivitamin therapeutic Tablet 1 TAB PO (08:55)
[2025-03-10] MEDS: folic acid 1 mg Tablet PO (08:55)
[2025-03-10] MEDS: thiamine 100 mg/mL 2mL SDV IVP (08:55)
[2025-03-10] MEDS: methocarbamol 500 mg Tablet PO ×2 (08:55→20:42)
[2025-03-10] MEDS: gabapentin 100 mg Capsule PO ×3 (08:55→20:42)
[2025-03-10] MEDS: insulin lispro 100 unit/1 mL SUBCUT ×2 (12:35→21:50)
[2025-03-10 13:27] LABS: Glucose Point of Care 91 mg/dL (70-110)
[2025-03-10 13:27] LABS: Glucose Point of Care 167 mg/dL (70-110)
--- NOTE | 2025-03-10 14:07 | P.PN_ITS ---
Subjective 2 Subjective: No acute events overnight. Laying comfortably in bed. Denies any new complaints. Medications: Reviewed: Yes Vitals/I&O/Wt Last Vital Signs Temp 98.1 F 03/10/25 11:32 Pulse 83 03/10/25 11:32 Resp 16 03/10/25 11:32 BP 95/59 03/10/25 11:32 Pulse Ox 97 03/10/25 11:32 O2 Del Method Room Air 03/10/25 11:32 O2 Flow Rate 1 03/01/25 08:00 03/09/25 03/10/25 03/10/25 22:59 06:59 14:59 Intake Total 240 / 840 840 / 1680 960 / 960 Output Total 900 / 900 300 / 1200 900 / 900 Balance -660 / -60 540 / 480 60 / 60 Weight last 48 hrs Weight 93.44 kg Weight 93.44 kg Physical Exam 2 Narrative: General: Patient is awake, alert and oriented x 3 Head: Normocephalic. Icteric sclera. Neck: No JVD. Cardiovascular: RRR. No gallops. No murmurs. Lungs: Clear to auscultation, no use of accessory muscles, no crackles or wheezes. Skin: Slightly jaundiced. No rashes. Abdomen: Normal bowel sounds, abdomen soft and nontender.. Extremities: No cyanosis or clubbing. Pedal onychomycosis. Musculoskeletal: No erythematous joints. Right upper extremity restricted ROM, severe tenderness. Neurological: Moves all 4 extremities. No myoclonus. Data 03/10/25 04:37 03/10/25 04:37 A&P Assessment and plan (1) Acute metabolic encephalopathy: (2) Urinary tract infection: (3) Type 2 diabetes mellitus: (4) Thrombocytopenia: (5) Acidosis, lactic: (6) Alcoholic cirrhosis: (7) Hypothyroidism: (8) Failure to thrive: (9) Edema due to hypoalbuminemia: (10) Moderate protein-energy malnutrition: Plan Bernardino Wilkins Renetta is a 64 year old male with a past medical history significant for alcoholic liver cirrhosis, type 2 diabetes mellitus, hypothyroidism, and depression who presents to the emergency department after being found down by his grandson. Patient endorses generalized malaise and fatigue. Endorses chills. Acute complicated urinary tract infection Follow-up blood culture urine culture. Finished treatment with IV ceftriaxone and cefepime for overall 7 days. DC Metcalf catheter. Acute metabolic encephalopathy Failure to thrive and overall fluid Debility physical deconditioning - Patient adamant that he did not overdose or attempt to harm himself - Grandson agrees the patient was not trying to harm himself - Monitor with continuous telemetry and pulse oximetry - Avoid further sedating medications - Monitor mentation closely Lactic acidosis - May be sequela of liver disease, metformin side effect, versus infection - Trend lactate - Treat underlying infection Alcoholic liver cirrhosis Transaminitis Hyperbilirubinemia Coagulopathy with elevated INR Thrombocytopenia Hx of GI bleed - Suspect above sequela of underlying alcoholic liver cirrhosis - No NSAIDS - Thiamine, folic acid, vitamin - CIWA Hypokalemia - Replace potassium as needed - Check Mg Type 2 diabetes mellitus - Hold metformin - Sliding scale correction Insomnia - Hold home medications for now Hypothyroidism - Check TSH given encephalopathy DVT prophylaxis: SCD CODE STATUS: Full code Plan for the day: Replace potassium. Hold off on Lasix. Out of bed to chair. Physical therapy. Awaiting level 2. On review does seem Vitaliy donaldson is patient's guardian. Vitaliy is requesting patient to be transferred to SNF as he is not able to take care of patient at home. Patient has been accepted to SNF. Awaiting level 2. PDMP PDMP Reviewed: Not Reviewed Attestations 2 Medical Necessity Statement*: Awaiting level 2. Diagnoses Acute metabolic encephalopathy G93.41 Urinary tract infection N39.0 Type 2 diabetes mellitus E11.9 Thrombocytopenia D69.6 Acidosis, lactic E87.20 Alcoholic cirrhosis K70.30 Hypothyroidism E03.9 Failure to thrive Edema due to hypoalbuminemia E88.09 Moderate protein-energy malnutrition E44.0
[2025-03-10] MEDS: potassium chloride ER 20 mEq Tablet 40 MEQ PO (15:27)
[2025-03-10 16:38] LABS: Glucose Point of Care 139 mg/dL (70-110)
[2025-03-10] MEDS: temazepam 15 mg Capsule PO (20:46)
[2025-03-10 21:01] LABS: Glucose Point of Care 156 mg/dL (70-110)
[2025-03-11] VITALS (9 sets, daily range): BP systolic 101–128; BP diastolic 61–72; PULSE 76–104; RESP 16–19; TEMP 36.8–37.6; O2SAT 93–96
[2025-03-11 00:34] LABS: Vitamin B1 (Thiamine),Blood 282 nmol/L (78-185)
[2025-03-11] MEDS: pantoprazole 40 mg SDV IVP ×2 (03:00→15:25)
[2025-03-11 06:39] LABS: Glucose Point of Care 130 mg/dL (70-110)
[2025-03-11] MEDS: thiamine 100 mg Tablet PO (09:10)
[2025-03-11] MEDS: gabapentin 100 mg Capsule PO ×3 (09:10→20:04)
[2025-03-11] MEDS: folic acid 1 mg Tablet PO (09:10)
[2025-03-11] MEDS: multivitamin therapeutic Tablet 1 TAB PO (09:10)
--- NOTE | 2025-03-11 09:58 | PC.SOCIAL ---
IMM Update Pg. 2 of IMM updated and copy provided at bedside.
[2025-03-11 11:07] LABS: Glucose Point of Care 156 mg/dL (70-110)
[2025-03-11] MEDS: insulin lispro 100 unit/1 mL SUBCUT ×2 (12:20→21:45)
--- NOTE | 2025-03-11 13:01 | P.PN_ITS ---
Subjective 2 Subjective: awaiting placement no acute events overnight Vitals/I&O/Wt Last Vital Signs Temp 98.2 F 03/11/25 11:23 Pulse 90 03/11/25 11:23 Resp 17 03/11/25 11:23 BP 111/63 03/11/25 11:23 Pulse Ox 95 03/11/25 11:23 O2 Del Method Room Air 03/11/25 11:23 O2 Flow Rate 1 03/01/25 08:00 03/10/25 03/11/25 03/11/25 22:59 06:59 14:59 Intake Total 960 / 1920 240 / 2160 960 / 960 Output Total 850 / 1750 Balance 110 / 170 240 / 410 960 / 960 Weight last 48 hrs Weight 206 lb 4 oz Weight 206 lb Physical Exam 2 Narrative: General: Patient is awake, alert and oriented x 3 Head: Normocephalic. Icteric sclera. Neck: No JVD. Cardiovascular: RRR. No gallops. No murmurs. Lungs: Clear to auscultation, no use of accessory muscles, no crackles or wheezes. Skin: Slightly jaundiced. No rashes. Abdomen: Normal bowel sounds, abdomen soft and nontender.. Extremities: No cyanosis or clubbing. Pedal onychomycosis. Musculoskeletal: No erythematous joints. Neurological: Moves all 4 extremities. No myoclonus. Data 03/10/25 04:37 03/10/25 04:37 A&P Assessment and plan (1) Failure to thrive: (2) Urinary tract infection: Plan Bernardino Wilkins Renetta is a 64 year old male with a past medical history significant for alcoholic liver cirrhosis, type 2 diabetes mellitus, hypothyroidism, and depression who presents to the emergency department after being found down by his grandson. Patient endorses generalized malaise and fatigue. Endorses chills. Acute complicated urinary tract infection Follow-up blood culture urine culture.--> Ecoli urine Finished treatment with IV ceftriaxone and cefepime for overall 7 days. DC Metcalf catheter. Acute metabolic encephalopathy Failure to thrive and overall fluid Debility physical deconditioning - Patient adamant that he did not overdose or attempt to harm himself - Grandson agrees the patient was not trying to harm himself - Monitor with continuous telemetry and pulse oximetry - Avoid further sedating medications - Monitor mentation closely Lactic acidosis - May be sequela of liver disease, metformin side effect, versus infection - Trend lactate - Treat underlying infection Alcoholic liver cirrhosis Transaminitis Hyperbilirubinemia Coagulopathy with elevated INR Thrombocytopenia Hx of GI bleed - Suspect above sequela of underlying alcoholic liver cirrhosis - No NSAIDS - Thiamine, folic acid, vitamin - CIWA Hypokalemia - Replace potassium as needed - monitor Mg Type 2 diabetes mellitus - Hold metformin - Sliding scale correction Insomnia - Hold home medications for now Hypothyroidism - monitor TSH, encephalopathy DVT prophylaxis: SCD CODE STATUS: Full code Dispo: awaiting placement PDMP PDMP Reviewed: Not Reviewed Attestations 2 Medical Necessity Statement*: uti, weakness Coding Level of Care Code Acute Code for Chg Fwd Diagnoses Failure to thrive Urinary tract infection N39.0
[2025-03-11] MEDS: methocarbamol 500 mg Tablet PO ×2 (15:26→20:04)
[2025-03-11 16:32] LABS: Glucose Point of Care 108 mg/dL (70-110)
[2025-03-11] MEDS: temazepam 15 mg Capsule PO (20:04)
[2025-03-11 20:58] LABS: Glucose Point of Care 165 mg/dL (70-110)
[2025-03-12] VITALS (8 sets, daily range): BP systolic 102–122; BP diastolic 64–70; PULSE 68–102; RESP 17–18; TEMP 37.1–37.6; O2SAT 93–95
[2025-03-12] MEDS: pantoprazole 40 mg SDV IVP ×2 (02:29→14:50)
[2025-03-12 06:24] LABS: Glucose Point of Care 150 mg/dL (70-110)
[2025-03-12] MEDS: insulin lispro 100 unit/1 mL SUBCUT ×2 (09:20→17:13)
[2025-03-12] MEDS: folic acid 1 mg Tablet PO (09:21)
[2025-03-12] MEDS: methocarbamol 500 mg Tablet PO ×3 (09:21→20:58)
[2025-03-12] MEDS: thiamine 100 mg Tablet PO (09:21)
[2025-03-12] MEDS: gabapentin 100 mg Capsule PO ×3 (09:21→20:58)
[2025-03-12] MEDS: multivitamin therapeutic Tablet 1 TAB PO (09:21)
[2025-03-12 11:20] LABS: Glucose Point of Care 127 mg/dL (70-110)
--- NOTE | 2025-03-12 14:09 | P.PN_ITS ---
Subjective 2 Subjective: [id number] was done today denied for SNF placement Patient seen by PT and OT today. Afebrile. Continues to have some weakness Vitals/I&O/Wt Last Vital Signs Temp 98.8 F 03/12/25 11:33 Pulse 91 03/12/25 11:33 Resp 18 03/12/25 11:33 BP 107/66 03/12/25 11:33 Pulse Ox 95 03/12/25 11:33 O2 Del Method Room Air 03/12/25 11:33 O2 Flow Rate 1 03/01/25 08:00 03/11/25 03/12/25 03/12/25 22:59 06:59 14:59 Intake Total 480 / 1440 480 / 1920 840 / 840 Balance 480 / 1440 480 / 1920 840 / 840 Weight last 48 hrs Weight 206 lb 3 oz Weight 206 lb 4 oz Physical Exam 2 Narrative: General: Patient is awake, alert and oriented x 3 Head: Normocephalic. Neck: No JVD. Cardiovascular: RRR. No gallops. No murmurs. Lungs: Clear to auscultation, no use of accessory muscles, no crackles or wheezes. Skin: No rashes. Abdomen: Normal bowel sounds, abdomen soft and nontender.. Extremities: No cyanosis or clubbing. Pedal onychomycosis. Musculoskeletal: No erythematous joints. Neurological: Moves all 4 extremities. No myoclonus. Data 03/10/25 04:37 03/10/25 04:37 A&P Assessment and plan (1) Failure to thrive: Plan (1) Failure to thrive: (2) Urinary tract infection: Plan Bernardino Jackson is a 64 year old male with a past medical history significant for alcoholic liver cirrhosis, type 2 diabetes mellitus, hypothyroidism, and depression who presents to the emergency department after being found down by his grandson. Patient endorses generalized malaise and fatigue. Endorses chills. Acute complicated urinary tract infection Follow-up blood culture urine culture.--> Ecoli urine Finished treatment with IV ceftriaxone and cefepime for overall 7 days. DC Metcalf catheter. Acute metabolic encephalopathy Failure to thrive and overall fluid Debility physical deconditioning - Patient adamant that he did not overdose or attempt to harm himself - Grandson agrees the patient was not trying to harm himself - Monitor with continuous telemetry and pulse oximetry - Avoid further sedating medications - Monitor mentation closely Lactic acidosis - May be sequela of liver disease, metformin side effect, versus infection - Trend lactate - Treat underlying infection Alcoholic liver cirrhosis Transaminitis Hyperbilirubinemia Coagulopathy with elevated INR Thrombocytopenia Hx of GI bleed - Suspect above sequela of underlying alcoholic liver cirrhosis - No NSAIDS - Thiamine, folic acid, vitamin - CIWA Hypokalemia - Replace potassium as needed - monitor Mg Type 2 diabetes mellitus - Hold metformin - Sliding scale correction Insomnia - Hold home medications for now Hypothyroidism - monitor TSH, encephalopathy dispo: placement, continue PT OT DVT prophylaxis: SCD CODE STATUS: Full code PDMP PDMP Reviewed: Not Reviewed Attestations 2 Medical Necessity Statement*: PT , weakness Coding Level of Care Code 59484 Diagnoses Failure to thrive
[2025-03-12 16:32] LABS: Glucose Point of Care 184 mg/dL (70-110)
[2025-03-12 21:06] LABS: Glucose Point of Care 130 mg/dL (70-110)
[2025-03-12] MEDS: temazepam 15 mg Capsule PO (21:11)
[2025-03-13] MEDS: pantoprazole 40 mg SDV IVP (02:40)
[2025-03-13 03:47] VITALS: PULSE 97
[2025-03-13 04:23] VITALS: BP 110/68; PULSE 100; RESP 18; TEMP 36.7; O2SAT 94
[2025-03-13 06:27] LABS: Glucose Point of Care 150 mg/dL (70-110)
[2025-03-13 07:21] VITALS: BP 107/65; PULSE 89; RESP 16; TEMP 37.6; O2SAT 95
[2025-03-13] MEDS: multivitamin therapeutic Tablet 1 TAB PO (08:22)
[2025-03-13] MEDS: thiamine 100 mg Tablet PO (08:22)
[2025-03-13] MEDS: methocarbamol 500 mg Tablet PO ×2 (08:22→21:01)
[2025-03-13] MEDS: gabapentin 100 mg Capsule PO ×2 (08:22→21:01)
[2025-03-13] MEDS: insulin lispro 100 unit/1 mL SUBCUT ×3 (08:22→22:07)
[2025-03-13] MEDS: folic acid 1 mg Tablet PO (08:22)
[2025-03-13] MEDS: TRAMadol 50 mg Tablet PO (08:26)
[2025-03-13 09:58] LABS: Basophils # 0.1 10^3/uL (0.0-0.1); Eosinophils # 0.1 10^3/uL (0.0-0.8); Eosinophils % 0.8 %; Hematocrit 37.1 % (37-53); Lymphocytes # 1.2 10^3/uL (0.8-4.8); Lymphocytes % 15.4 %; Mean Corpuscular HGB Conc 33.2 g/dL (30-55); Mean Corpuscular Hemoglobin 34.4 pg (27-33); Mean Corpuscular Volume 103.6 fl (82-101); Mean Platelet Volume 9.1 fL (7.4-10.4); Monocytes # 0.8 10^3/uL (0.2-0.9); Monocytes % 10.6 %; Neutrophils # 5.56 10^3/uL (1.8-7.7); Neutrophils % 71.7 %; Nucleated Red Blood Cells % 0 %; Platelet Count 197 10^3/cmm (157-399); Red Blood Count 3.58 10^6/uL (3.85-5.65); Red Cell Distribution Width 15.1 % (12.1-15.1); White Blood Count 7.75 10^3/uL (3.29-11.43)
[2025-03-13 10:17] LABS: Alanine Aminotransferase 25 U/L (0-41); Albumin Level 1.8 g/dL (3.5-5.2); Alkaline Phosphatase 95 U/L (40-130); Anion Gap 12.7 (5-19); Aspartate Amino Transferase 49 U/L (0-40); Blood Urea Nitrogen 8 mg/dL (8-23); Calcium 7.6 mg/dL (8.5-10.5); Carbon Dioxide 20 mmol/L (22-29); Chloride 103 mmol/L (98-107); Creatinine Clr Calc Pharmacy 104.3323; Globulin 5.6 g/dL (1.3-4.6); Glomerular Filtration Rate 166.4 mL/min (90-130); Glucose 163 mg/dL (65-115); Osmolality Calculated 276 mOsm/kg (285-295); Potassium 3.7 mmol/L (3.5-5.1); Sodium 132 mmol/L (136-145); Total Bilirubin 2.1 mg/dL (0.15-1.2); Total Protein 7.4 g/dL (6.6-8.7)
--- NOTE | 2025-03-13 11:11 | PC.SOCIAL ---
IMM Update Pg. 2 of IMM updated and reviewed with patient, who verbalized understanding. Copy provided at bedside. Will attempt to review with guardian whenever he makes contact.
[2025-03-13 11:29] VITALS: BP 119/76; PULSE 89; RESP 15; TEMP 36.7; O2SAT 99
[2025-03-13 11:43] LABS: Glucose Point of Care 156 mg/dL (70-110)
--- NOTE | 2025-03-13 12:36 | P.PN_ITS ---
Subjective 2 Subjective: No acute events overnight. Labs are ordered reviewed. Vitals/I&O/Wt Last Vital Signs Temp 99.6 F 03/13/25 07:21 Pulse 89 03/13/25 07:21 Resp 16 03/13/25 07:21 BP 107/65 03/13/25 07:21 Pulse Ox 95 03/13/25 07:21 O2 Del Method Room Air 03/13/25 07:21 O2 Flow Rate 1 03/01/25 08:00 03/12/25 03/13/25 03/13/25 22:59 06:59 14:59 Intake Total 960 / 1800 600 / 2400 240 / 240 Balance 960 / 1800 600 / 2400 240 / 240 Weight last 48 hrs Weight 206 lb 3 oz Physical Exam 2 Narrative: General: Patient is awake, alert and oriented x 3 Head: Normocephalic. Neck: No JVD. Cardiovascular: RRR. No gallops. No murmurs. Lungs: Clear to auscultation, no use of accessory muscles, no crackles or wheezes. Skin: No rashes. Abdomen: Normal bowel sounds, abdomen soft and nontender.. Extremities: No cyanosis or clubbing. Pedal onychomycosis. Musculoskeletal: No erythematous joints. Neurological: Moves all 4 extremities. No myoclonus. Data 03/13/25 09:37 03/13/25 09:37 A&P Assessment and plan (1) Moderate protein-energy malnutrition: (2) Hypothyroidism: (3) Type 2 diabetes mellitus: Plan (1) Failure to thrive: (2) Urinary tract infection: Plan Bernardino Wilkins Renetta is a 64 year old male with a past medical history significant for alcoholic liver cirrhosis, type 2 diabetes mellitus, hypothyroidism, and depression who presents to the emergency department after being found down by his grandson. Patient endorses generalized malaise and fatigue. Endorses chills. Acute complicated urinary tract infection Follow-up blood culture urine culture.--> Ecoli urine Finished treatment with IV ceftriaxone and cefepime for overall 7 days. DC Metcalf catheter. Acute metabolic encephalopathy Failure to thrive and overall fluid Debility physical deconditioning - Patient adamant that he did not overdose or attempt to harm himself - Grandson agrees the patient was not trying to harm himself - Monitor with continuous telemetry and pulse oximetry - Avoid further sedating medications - Monitor mentation closely Lactic acidosis - May be sequela of liver disease, metformin side effect, versus infection - Trend lactate - Treat underlying infection Alcoholic liver cirrhosis Transaminitis Hyperbilirubinemia Coagulopathy with elevated INR Thrombocytopenia Hx of GI bleed - Suspect above sequela of underlying alcoholic liver cirrhosis - No NSAIDS - Thiamine, folic acid, vitamin - CIWA Hypokalemia - Replace potassium as needed - monitor Mg Type 2 diabetes mellitus - Hold metformin - Sliding scale correction Insomnia - Hold home medications for now Hypothyroidism - monitor TSH, encephalopathy dispo: placement, continue PT OT DVT prophylaxis: SCD CODE STATUS: Full code PDMP PDMP Reviewed: Not Reviewed Attestations 2 Medical Necessity Statement*: Needs placement although he is doing better his weakness is improving Coding Level of Care Code Acute Code for Chg Fwd Diagnoses Moderate protein-energy malnutrition E44.0 Hypothyroidism E03.9 Type 2 diabetes mellitus E11.9
--- NOTE | 2025-03-13 13:34 | P.DS_ITS ---
Discharge Providers Date of Admission: 03/01/25 14:20 Date of Discharge: March 13, 2025 Attending Provider at Admission: Jeffrey Sheldon MD Attending Provider at Discharge: Jasmina Alfaro MD Primary Care Provider: Sanam Sosa DO Diagnoses at Discharge Discharge Diagnosis (1) Moderate protein-energy malnutrition: Status: Acute (2) Hypothyroidism: Status: Acute (3) Type 2 diabetes mellitus: Status: Acute Reason for Visit Reason for Visit: OD Hospital Course Hospital Course 64-year-old male with history of alcohol liver cirrhosis, diabetes, hypothyroidism, depression presented to the emergency room after feeling not well generalized malaise fatigue and found down. Concern for alcohol intoxication. Also noted to have history of depression. He was diagnosed with a UTI. He was treated antibiotics. Patient has been following with physical therapy. His labs have been closely been monitored. He was awaiting placement for a senior living facility. Patient clinically improved quite a bit. Placement for senior living facility was denied by his insurance. Patient denied any suicidal or homicidal thoughts. He was aware of poor decisions. He was deemed stable and in fair condition to be discharged home. He was discharged in stable condition. He was going to be placed on a regular diet. I recommend to increase his protein intake. Physical Exam Narrative: General: Patient is awake, alert and oriented x 3 Head: Normocephalic. Neck: No JVD. Cardiovascular: RRR. No gallops. No murmurs. Lungs: Clear to auscultation, no use of accessory muscles, no crackles or wheezes. Skin: No rashes. Abdomen: Normal bowel sounds, abdomen soft and nontender.. Extremities: No cyanosis or clubbing. Pedal onychomycosis. Musculoskeletal: No erythematous joints. Neurological: Moves all 4 extremities. No myoclonus. Discharge Data Studies Completed and Pending Completed Studies During Hospitalization Category Date Time Status CT head wo con* [id number] Stat Cat Scan 02/27/25 23:41 Completed XR chest 1V portable [id number] Stat Exams 02/27/25 23:41 Completed XR elbow RT 2V [id number] Routine Exams 03/05/25 11:13 Completed XR forearm RT 2V [id number] Routine Exams 03/05/25 11:13 Completed XR shoulder RT min 2V* [id number] Stat Exams 02/28/25 10:00 [place] [id number] Routine Ultrasound 03/04/25 15:40 Completed Radiology Impressions Chest X-Ray 02/27/25 23:41 IMPRESSION: No acute chest findings. Head CT 02/27/25 23:41 IMPRESSION: No acute intracranial findings. Shoulder X-Ray 02/28/25 10:00 IMPRESSION: 1. Moderate degenerative changes. Venous Duplex 03/04/25 15:40 IMPRESSION: 1. No evidence of deep vein thrombosis. 2. Superficial thrombophlebitis of right cephalic vein. 3. Soft tissue edema. Elbow X-Ray 03/05/25 11:13 IMPRESSION: 1. Suboptimal study. No definite fracture. 2. Diffuse soft tissue swelling. Forearm X-Ray 03/05/25 11:13 IMPRESSION: Diffuse soft tissue swelling Laboratory Results WBC 7.75 10^3/uL (3.29-11.43) 03/13/25 09:37 RBC 3.58 10^6/uL (3.85-5.65) L 03/13/25 09:37 Hgb 12.30 g/dL (11.27-16.99) 03/13/25 09:37 Hct 37.1 % (37-53) 03/13/25 09:37 MCV 103.6 fl (82-101) H 03/13/25 09:37 MCH 34.4 pg (27-33) H 03/13/25 09:37 MCHC 33.2 g/dL (30-55) 03/13/25 09:37 RDW 15.1 % (12.1-15.1) 03/13/25 09:37 Plt Count 197 10^3/cmm (157-399) 03/13/25 09:37 MPV 9.1 fL (7.4-10.4) 03/13/25 09:37 Neut % (Auto) 71.7 % 03/13/25 09:37 Lymph % (Auto) 15.4 % 03/13/25 09:37 [place] % (Auto) 10.6 % 03/13/25 09:37 Eos % (Auto) 0.8 % 03/13/25 09:37 Baso % (Auto) 1.0 % 03/13/25 09:37 Neut # (Auto) 5.56 10^3/uL (1.8-7.7) 03/13/25 09:37 Lymph # (Auto) 1.2 10^3/uL (0.8-4.8) 03/13/25 09:37 [place] # (Auto) 0.8 10^3/uL (0.2-0.9) 03/13/25 09:37 Eos # (Auto) 0.1 10^3/uL (0.0-0.8) 03/13/25 09:37 Baso # (Auto) 0.1 10^3/uL (0.0-0.1) 03/13/25 09:37 Nucleated RBC % (auto) 0 % 03/13/25 09:37 Nucleated RBCs # 0.0 /100WBC 03/13/25 09:37 PT 19.20 SECONDS (12.1-14.9) H 03/01/25 04:33 INR 1.51 (0.8-1.2) H 03/01/25 04:33 APTT 39.1 SECONDS (23.9-36.7) H 02/27/25 23:37 Sodium 132 mmol/L (136-145) L 03/13/25 09:37 Potassium 3.7 mmol/L (3.5-5.1) 03/13/25 09:37 Chloride 103 mmol/L (98-107) 03/13/25 09:37 Carbon Dioxide 20 mmol/L (22-29) L 03/13/25 09:37 Anion Gap 12.7 (5-19) 03/13/25 09:37 BUN 8 mg/dL (8-23) 03/13/25 09:37 Creatinine 0.5 mg/dL (0.7-1.2) L 03/13/25 09:37 GFR Calculation 166.4 mL/min (90-130) H 03/13/25 09:37 Glucose 163 mg/dL (65-115) H 03/13/25 09:37 POC Glucose 156 mg/dL (70-110) H 03/13/25 11:29 Calculated Osmolality 276 mOsm/kg (285-295) L 03/13/25 09:37 Lactic Acid 4.0 mmol/L (0.5-2.2) H 02/27/25 23:37 Lactic Acid (Sepsis) 2.6 mmol/L (0.5-2.2) H 02/28/25 04:09 Calcium 7.6 mg/dL (8.5-10.5) L 03/13/25 09:37 Phosphorus 1.1 mg/dL (2.5-4.5) L 03/01/25 04:33 Magnesium 1.8 mg/dL (1.7-2.3) 03/01/25 04:33 Total Bilirubin 2.1 mg/dL (0.15-1.2) H 03/13/25 09:37 AST 49 U/L (0-40) H 03/13/25 09:37 ALT 25 U/L (0-41) 03/13/25 09:37 Alkaline Phosphatase 95 U/L (40-130) 03/13/25 09:37 Ammonia 30 umol/L (16-60) 02/28/25 00:26 Total Protein 7.4 g/dL (6.6-8.7) 03/13/25 09:37 Albumin 1.8 g/dL (3.5-5.2) L 03/13/25 09:37 Globulin 5.6 g/dL (1.3-4.6) H 03/13/25 09:37 Thiamine 282 nmol/L (78-185) H 03/05/25 14:03 Procalcitonin 9.03 ng/mL (0-0.5) H 02/27/25 23:37 TSH 1.66 uIU/mL (0.27-4.20) 02/27/25 23:37 Urine Color Dark yellow (Yellow) A 02/27/25 23:43 Urine Appearance Turbid (CLEAR) A 02/27/25 23:43 Urine pH 6.0 (5-7) 02/27/25 23:43 Ur Specific [place] 1.013 (1.005-1.030) 02/27/25 23:43 Urine Protein 2+ (Negative) A 02/27/25 23:43 Urine Glucose (UA) Negative (Normal) 02/27/25 23:43 Urine Ketones Negative (Negative) 02/27/25 23:43 Urine Blood 3+ (Negative) A 02/27/25 23:43 Urine Nitrate Negative (Negative) 02/27/25 23:43 Urine Bilirubin 1+ (Negative) H 02/27/25 23:43 Urine Urobilinogen 1.0 mg/dL (Negative) 02/27/25 23:43 Ur Leukocyte Esterase 3+ (Negative) A 02/27/25 23:43 Urine RBC 11-20 /hpf (0-2) H 02/27/25 23:43 Urine WBC >100 /hpf (0-5) H 02/27/25 23:43 Ur Squamous Epith Cells 0-5 /hpf (0-5) 02/27/25 23:43 Amorphous Sediment Not Reportable 02/27/25 23:43 Urine Bacteria Exceeds /hpf (NONE) 02/27/25 23:43 Hyaline Casts 6.61 /lpf 02/27/25 23:43 Salicylates < 0.3 mg/dL (3-10) L 02/27/25 23:37 Urine Opiates Screen Negative ng/mL (Negative) 02/27/25 23:43 Acetaminophen < 5.0 ug/mL (10-30) L 02/27/25 23:37 Ur Barbiturates Screen Negative ng/mL (Negative) 02/27/25 23:43 Ur Phencyclidine Scrn Negative ng/mL (Negative) 02/27/25 23:43 Ur Amphetamines Screen Negative ng/mL (Negative) 02/27/25 23:43 U Benzodiazepines Scrn Positive ng/mL (Negative) H 02/27/25 23:43 Urine Cocaine Screen Negative ng/mL (Negative) 02/27/25 23:43 U Marijuana (THC) Screen Negative ng/mL (Negative) 02/27/25 23:43 Ethyl Alcohol < 10 mg/dL (0-10) 02/27/25 23:37 Vitals Last Vital Signs Temp 98.0 F 03/13/25 11:29 Pulse 89 03/13/25 11:29 Resp 15 03/13/25 11:29 BP 119/76 03/13/25 11:29 Pulse Ox 99 03/13/25 11:29 O2 Del Method Room Air 03/13/25 11:29 O2 Flow Rate 1 03/01/25 08:00 Discharge Plan Discharge Patient Disposition: Home Health Service Condition: Stable Prescriptions: New thiamine mononitrate (vit B1) [Vitamin B-1 (mononitrate)] 100 mg Tablet 100 mg PO DAILY Qty: 30 0RF multivitamin with folic acid [Thera] 400 mcg Tablet 1 tab PO DAILY Qty: 30 0RF acetaminophen 325 mg Tablet 650 mg PO Q6H PRN (Reason: Mild/Mod Pain Or Temp >/= 101) Qty: 30 0RF Continued metformin 1,000 mg Tablet 1,000 mg PO BID gabapentin 100 mg Capsule 100 mg PO TID potassium chloride 10 mEq tablet extended release 10 meq PO BID temazepam 15 mg capsule 15 mg PO BEDTIME PRN (Reason: Sleep) naproxen [Naprosyn] 500 mg tablet 500 mg PO BID PRN (Reason: pain) Qty: 20 0RF ketoconazole 2 % shampoo See Rx Instructions .ROUTE .COMPLEX PRN (Reason: Skin Irritation) Rx Instructions: LATHER ONTO SCALP AND FACE 2-3 TIMES A WEEK. ALLOW TO SIT 5 MINUTES BEFORE RINSING. ketoconazole 2 % cream See Rx Instructions .ROUTE .COMPLEX PRN (Reason: Skin Irritation) Rx Instructions: APPLY TWICE DAILY TO RED SCALY AREAS ON FACE NEEDED. eszopiclone 2 mg tablet 2 mg PO DAILY Discharge Orders: Discharge Order (Routine); Ordered 03/13/25 Ordered By: Jasmina Alfaro Other Ambulatory Orders: DME: Markos (Order) Location: None Selected Ordered By: Jasmina Alfaro Referrals: Sanam Sosa DO [Primary Care Provider, Family Practice] Discharge Diet: Regular Discharge Activity: Resume usual activity Patient Instructions: Opioid Safety Plan of Treatment: take medications as prescribed followup with PCP in one week Discharge Attestations Time Spent in Discharge Care*: greater than 30 min Quality Metrics Clinical Quality Measures [ No reported AMI, CVA or VTE this stay] Coding Level of Care Code 93394 Diagnoses Moderate protein-energy malnutrition E44.0 Hypothyroidism E03.9 Type 2 diabetes mellitus E11.9
--- NOTE | 2025-03-13 14:56 | PC.NURSE ---
Thiamine prescription called into pharmacy for meds to beds
[2025-03-13 15:25] VITALS: BP 101/67; PULSE 92; RESP 16; TEMP 37.2; O2SAT 98
[2025-03-13 17:01] LABS: Glucose Point of Care 131 mg/dL (70-110)
[2025-03-13 19:31] VITALS: BP 113/72; PULSE 95; RESP 16; TEMP 37.5; O2SAT 96
[2025-03-13 20:25] LABS: Glucose Point of Care 231 mg/dL (70-110)
--- NOTE | 2025-03-13 20:29 | PC.NURSE ---
Spoke to Ayan and she said that she spoke with Vitaliy and that it was decided that he would go to [facility] in the morning and she would be here to pick him up at 0900.
[2025-03-13] MEDS: temazepam 15 mg Capsule PO (21:21)
[2025-03-14] MEDS: pantoprazole 40 mg SDV IVP (02:41)
[2025-03-14] MEDS: pantoprazole DR 40 mg Tablet PO (03:15)
[2025-03-14 04:00] VITALS: BP 108/66; PULSE 90; RESP 16; TEMP 37.3; O2SAT 96
[2025-03-14 05:56] VITALS: PULSE 72
[2025-03-14 06:35] LABS: Glucose Point of Care 155 mg/dL (70-110)
[2025-03-14 07:27] VITALS: BP 111/70; PULSE 82; RESP 17; TEMP 36.9; O2SAT 95
[2025-03-14] MEDS: folic acid 1 mg Tablet PO (08:19)
[2025-03-14] MEDS: multivitamin therapeutic Tablet 1 TAB PO (08:19)
[2025-03-14] MEDS: methocarbamol 500 mg Tablet PO (08:19)
[2025-03-14] MEDS: gabapentin 100 mg Capsule PO (08:19)
[2025-03-14] MEDS: insulin lispro 100 unit/1 mL SUBCUT (08:19)
[2025-03-14] MEDS: thiamine 100 mg Tablet PO (08:19)
[2025-03-14 09:43] VITALS: BP 111/70; PULSE 82; RESP 17; TEMP 36.9; O2SAT 95
== END 2025-03-14 09:45 | disposition home health service (06) | DRG 689 ==
LOC: ER 02-28 01:43 → MEDSURG 02-28 01:49
PROVIDERS: Internal Medicine; Student in an Organized Health Care Education/Training Program; Admitting Provider Internal Medicine; Emergency Provider Student in an Organized Health Care Education/Training Program; PCP Family Medicine; Visit Provider Student in an Organized Health Care Education/Training Program
DX: N39.0 Urinary tract infection, site not specified (principal); G93.41 Metabolic encephalopathy; E87.20 Acidosis, unspecified; E44.0 Moderate protein-calorie malnutrition; D68.9 Coagulation defect, unspecified; Z79.899 Other long term (current) drug therapy; Z79.84 Long term (current) use of oral hypoglycemic drugs; K70.30 Alcoholic cirrhosis of liver without ascites; E11.9 Type 2 diabetes mellitus without complications; F32.A Depression, unspecified; D69.6 Thrombocytopenia, unspecified; R62.7 Adult failure to thrive; E87.6 Hypokalemia; G47.30 Sleep apnea, unspecified; E03.9 Hypothyroidism, unspecified; B96.20 Unspecified Escherichia coli [E. coli] as the cause of diseases classified elsewhere; E88.09 Other disorders of plasma-protein metabolism, not elsewhere classified
CPT/HCPCS: 36415; 36416; 51798; 70450; 71045; 73030; 73070; 73090; 80048; 80053; 80306; 80307; 81001; 82140; 82274; 82962; 83605; 83735; 84100; 84145; 84425; 84443; 85025; 85610; 85730; 87077; 87086; 87186; 93005; 93971; 96372; 96374; 97110; 97116; 97163; 97167; 97530; 97535; 99285; G0378; J0692; J0696; J1815; J2470; J3411; J3480; J7030; J9999

== ENCOUNTER 2025-04-26 10:06 | Inpatient (IN) | payer MEDICARE, SELFPAY ==
[2025-04-26] VITALS (14 sets, daily range): BP systolic 112–148; BP diastolic 67–87; PULSE 97–105; RESP 16–23; TEMP 36.8–37.2; O2SAT 94–98; BMI 24.3
--- NOTE | 2025-04-26 10:10 | CT_ITS ---
WS: [id number] CT HEAD TECHNIQUE: Noncontrast CT of the head obtained from the skullbase to the vertex. CLINICAL INFORMATION: AMS COMPARISON: CT 02/28/2025 DLP: 1095.[address] scans at [facility] use at least one of these dose optimization techniques: automated exposure control; mA and/or kV adjustment per patient size (includes targeted exams where dose is matched to clinical indication); or iterative reconstruction. FINDINGS: No evidence of intracranial hemorrhage or mass effect. Ventricular system and basal cisterns are patent. Mild small vessel changes with mild parenchymal volume loss. No extra-axial fluid collections. No evidence of mass or mass effect. Vascular calcification. Paranasal sinuses and mastoid air cells are well aerated. .Normal visualized soft tissues. CT/CT head wo con* [id number] IMPRESSION: 1. No evidence of intracranial hemorrhage or mass effect. 2. No acute intracranial findings.
--- NOTE | 2025-04-26 10:10 | XR_ITS ---
WS: [id number] Portable AP supine chest, 04/26/2025 Clinical Data: dyspnea/cough Comparison: Portable chest, 02/27/2025 Findings: No nodules, masses or effusions are seen. The heart is normal. The pulmonary vascularity is not increased. No pneumonia or pneumothorax is seen. The aortic arch shows tortuosity. There is osteoarthritis of both shoulders. XR/XR chest 1V portable [id number] Impression: Atherosclerosis.
--- NOTE | 2025-04-26 10:15 | ED_ITS ---
HPI - Altered Mental Status 2 General: Chief Complaint: Altered Mental Status Stated Complaint: ams Time Seen by Provider: 04/26/25 10:10 History of Present Illness: 64-year-old male Related Data Home Medications ?Medication ?Instructions ?Recorded ?Confirmed metformin 1,000 mg tablet 1,000 mg PO BID 11/18/19 gabapentin 100 mg capsule 100 mg PO TID 02/12/2302/28 potassium chloride 10 mEq 10 meq PO BID 09/15/2302/28 tablet,extended release temazepam 15 mg capsule 15 mg PO BEDTIME PRN Sleep 1 11/15/22 02/28/25 eszopiclone 2 mg tablet 2 mg PO DAILY 02/28/2502/28 ketoconazole 2 % shampoo See Rx Instructions .Route 0 02/28/25 02/28/25 .COMPLEX PRN Skin Irritation ketoconazole 2 % topical cream See Rx Instructions .[place] 02/28/25 02/28/25 .COMPLEX PRN Skin Irritation Previous Rx's ?Medication ?Instructions ?Recorded naproxen 500 mg tablet (Naprosyn) 500 mg PO BID PRN pa in #20 tabs 09/15/23 acetaminophen 325 mg tablet 650 mg (2 x 325 mg) PO Q6H PRN 03/13/25 Mild/Mod Pain Or Temp >/= 101 #30 tabs multivitamin with folic acid 400 1 tab PO DAILY #30 ta bs 03/13/25 mcg tablet (Thera) thiamine mononitrate (vit B1) 100 100 mg PO DAILY #30 tabs 03/13/25 mg tablet (Vitamin B-1 (mononitrate)) Allergies Allergy/AdvReac Type Severity Reaction Status Date / Time No Known Allergies Allergy Verified 02/27/25 23:41 Review of Systems 2 Const: Denies: fever(s) or chills Card: Denies: chest pain Resp: Denies: dyspnea GI: Denies: abdominal pain : Denies: dysuria, urinary frequency or urinary urgency Musc: Denies: neck pain or back pain Skin/Breast: Denies: rash PFSH ED 2 PFSH: Medical History Insomnia Type 2 diabetes mellitus Hypothyroidism Surgical History History of esophagogastroduodenoscopy Family History Mother Diabetes mellitus, type 2 Social History Smoking and tobacco/nicotine status: current every day tobacco/nicotine user Alcohol intake: former Substance/Drug Use: unknown Physical Exam 2 Const: COMMON NORMALS: no acute distress GENERAL APPEARANCE: cooperative and comfortable ORIENTATION/CONSCIOUSNESS: Yes awake HENMT: COMMON NORMALS: normocephalic, atraumatic and hearing grossly normal bilaterally HEAD & SCALP: normocephalic and atraumatic Resp: COMMON NORMALS: normal respiratory effort, No retractions, No use of accessory muscles and clear to auscultation bilaterally AUSCULTATION: clear to auscultation bilaterally Cardio: COMMON NORMALS: regular rate, regular rhythm and No murmurs present (Cardio) RATE: regular rate RHYTHM: regular rhythm GI: COMMON NORMALS: Soft to palpation and No hepatosplenomegaly present A USCULTATION: Yes normoactive bowel sounds PALPATION: Yes Soft to palpation, No Tenderness to palpation present (GI), No Guarding due to palpation present (GI) and Yes No hepatosplenomegaly present Extremity: COMMON NORMALS: normal to inspection, capillary refill normal, no clubbing, cyanosis or edema, no calf tenderness and no pedal edema Neuro: OTHER: No focal neurologic deficits noted moves all extremities no facial weakness Skin: COMMON NORMALS: no rashes or lesions noted GENERAL SKIN EXAM: no rashes or lesions noted Course 2 Vital Signs: Vital signs: Vital Signs Temperature 98.9 F 04/26/25 10:14 Pulse Rate 99 04/26/25 11:39 Respiratory Rate 16 04/26/25 11:39 Blood Pressure 115/75 04/26/25 11:39 Pulse Oximetry 98 04/26/25 11:39 Oxygen Delivery Me thod Room Air 04/26/25 10:14 MDM - Altered Mental Status Medical Decision Making intermediate and reported that the patient has some bloody stools although we have not seen in. She does have a cystitis ammonia level is significantly elevated. Suspect since he is in a controlled setting and not currently drinking at the elevation of pneumonia is triggered from infection. He has a known underlying alcoholic liver cirrhosis his bilirubin is actually down from in the past and liver functions are normal today. Previous urine culture was pansensitive E. coli will start ceftriaxone patient is given fluid boluses white count is not significantly elevated will admit the patient. Discussed with hospitalist orders written Lab Data 04/26/25 09:45 04/26/25 09:45 Radiology Impressions Chest X-Ray 04/26/25 10:10 Impression: Atherosclerosis. Head CT 04/26/25 10:10 IMPRESSION: 1. No evidence of intracranial hemorrhage or mass effect. 2. No acute intracranial findings. Laboratory Results WBC 8.43 10^3/uL (3.29-11.43) 04/26/25 09:45 RBC 3.67 10^6/uL (3.85-5.65) L 04/26/25 09:45 Hgb 11.40 g/dL (11.27-16.99) 04/26/25 09:45 Hct 34.2 % (37-53) L 04/26/25 09:45 MCV 93.2 fl (82-101) 04/26/25 09:45 MCH 31.1 pg (27-33) 04/26/25 09:45 MCHC 33.3 g/dL (30-55) 04/26/25 09:45 RDW 15.2 % (12.1-15.1) H 04/26/25 09:45 Plt Count 178 10^3/cmm (157-399) 04/26/25 09:45 MPV 8.6 fL (7.4-10.4) 04/26/25 09:45 Neut % (Auto) 62.0 % 04/26/25 09:45 Lymph % (Auto) 28.8 % 04/26/25 09:45 [place] % (Auto) 6.5 % 04/26/25 09:45 Eos % (Auto) 1.4 % 04/26/25 09:45 Baso % (Auto) 0.8 % 04/26/25 09:45 Neut # (Auto) 5.22 10^3/uL (1.8-7.7) 04/26/25 09:45 Lymph # (Auto) 2.4 10^3/uL (0.8-4.8) 04/26/25 09:45 [place] # (Auto) 0.6 10^3/uL (0.2-0.9) 04/26/25 09:45 Eos # (Auto) 0.1 10^3/uL (0.0-0.8) 04/26/25 09:45 Baso # (Auto) 0.1 10^3/uL (0.0-0.1) 04/26/25 09:45 Nucleated RBC % (auto) 0 % 04/26/25 09:45 Nucleated RBCs # 0.0 /100WBC 04/26/25 09:45 PT 16.60 SECONDS (12.1-14.9) H 04/26/25 09:45 INR 1.26 (0.8-1.2) H 04/26/25 09:45 APTT 33.6 SECONDS (23.9-36.7) 04/26/25 09:45 Sodium 140 mmol/L (136-145) 04/26/25 09:45 Potassium 4.1 mmol/L (3.5-5.1) 04/26/25 09:45 Chloride 106 mmol/L (98-107) 04/26/25 09:45 Carbon Dioxide 21 mmol/L (22-29) L 04/26/25 09:45 Anion Gap 17.1 (5-19) 04/26/25 09:45 BUN 16 mg/dL (8-23) 04/26/25 09:45 Creatinine 0.6 mg/dL (0.7-1.2) L 04/26/25 09:45 GFR Calculation 134.8 mL/min (90-130) H 04/26/25 09:45 Glucose 105 mg/dL (65-115) 04/26/25 09:45 Calculated Osmolality 292 mOsm/kg (285-295) 04/26/25 09:45 Lactic Acid 3.6 mmol/L (0.5-2.2) H 04/26/25 09:45 Calcium 9.0 mg/dL (8.5-10.5) 04/26/25 09:45 Total Bilirubin 1.4 mg/dL (0.15-1.2) H 04/26/25 09:45 AST 26 U/L (0-40) 04/26/25 09:45 ALT 11 U/L (0-41) 04/26/25 09:45 Alkaline Phosphatase 91 U/L (40-130) 04/26/25 09:45 Ammonia 154 umol/L (16-60) H 04/26/25 10:40 Creatine Kinase 29 U/L (39-308) L 04/26/25 09:45 Troponin T Baseline < 6 ng/L (0-15) 04/26/25 09:45 Total Protein 8.0 g/dL (6.6-8.7) 04/26/25 09:45 Albumin 2.7 g/dL (3.5-5.2) L 04/26/25 09:45 Globulin 5.3 g/dL (1.3-4.6) H 04/26/25 09:45 Lipase 18 U/L (13-60) 04/26/25 09:45 Urine Color Dark yellow (Yellow) A 04/26/25 10:42 Urine Appearance Cloudy (CLEAR) A 04/26/25 10:42 Urine pH 5.5 (5-7) 04/26/25 10:42 Ur Specific [place] 1.020 (1.005-1.030) 04/26/25 10:42 Urine Protein Trace (Negative) A 04/26/25 10:42 Urine Glucose (UA) Negative (Normal) 04/26/25 10:42 Urine Ketones Trace (Negative) 04/26/25 10:42 Urine Blood 1+ (Negative) A 04/26/25 10:42 Urine Nitrate Positive (Negative) A 04/26/25 10:42 Urine Bilirubin Negative (Negative) 04/26/25 10:42 Urine Urobilinogen 1.0 mg/dL (Negative) 04/26/25 10:42 Ur Leukocyte Esterase 3+ (Negative) A 04/26/25 10:42 Urine RBC 3-5 /hpf (0-2) 04/26/25 10:42 Urine WBC >100 /hpf (0-5) H 04/26/25 10:42 Ur Squamous Epith Cells 0-5 /hpf (0-5) 04/26/25 10:42 Amorphous Sediment Not Reportable 04/26/25 10:42 Urine Bacteria Exceeds /hpf (NONE) 04/26/25 10:42 Hyaline Casts 3.71 /lpf 04/26/25 10:42 All radiology interpretation(s) finalized by discharge Discharge Plan Discharge Patient Disposition: Admitted As Inpatient Clinical Impression: Cystitis, Alcoholic cirrhosis, Acute hepatic encephalopathy Condition: Stable Coding Level of Care Code ED Service Electrician for Lamin Pink
--- NOTE | 2025-04-26 10:17 | ECG_ITS ---
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
[2025-04-26 10:25] LABS: Basophils # 0.1 10^3/uL (0.0-0.1); Basophils % 0.8 %; Eosinophils # 0.1 10^3/uL (0.0-0.8); Eosinophils % 1.4 %; Hematocrit 34.2 % (37-53); Lymphocytes # 2.4 10^3/uL (0.8-4.8); Lymphocytes % 28.8 %; Mean Corpuscular HGB Conc 33.3 g/dL (30-55); Mean Corpuscular Hemoglobin 31.1 pg (27-33); Mean Corpuscular Volume 93.2 fl (82-101); Mean Platelet Volume 8.6 fL (7.4-10.4); Monocytes # 0.6 10^3/uL (0.2-0.9); Monocytes % 6.5 %; Neutrophils # 5.22 10^3/uL (1.8-7.7); Nucleated Red Blood Cells % 0 %; Platelet Count 178 10^3/cmm (157-399); Red Blood Count 3.67 10^6/uL (3.85-5.65); Red Cell Distribution Width 15.2 % (12.1-15.1); White Blood Count 8.43 10^3/uL (3.29-11.43)
[2025-04-26 10:38] LABS: INR 1.26 (0.8-1.2)
[2025-04-26 10:39] LABS: Alanine Aminotransferase 11 U/L (0-41); Albumin Level 2.7 g/dL (3.5-5.2); Alkaline Phosphatase 91 U/L (40-130); Anion Gap 17.1 (5-19); Aspartate Amino Transferase 26 U/L (0-40); Blood Urea Nitrogen 16 mg/dL (8-23); Carbon Dioxide 21 mmol/L (22-29); Chloride 106 mmol/L (98-107); Creatine Phosphokinase 29 U/L (39-308); Globulin 5.3 g/dL (1.3-4.6); Glomerular Filtration Rate 134.8 mL/min (90-130); Glucose 105 mg/dL (65-115); Lipase 18 U/L (13-60); Osmolality Calculated 292 mOsm/kg (285-295); Partial Thromboplastin Time 33.6 SECONDS (23.9-36.7); Potassium 4.1 mmol/L (3.5-5.1); Sodium 140 mmol/L (136-145); Total Bilirubin 1.4 mg/dL (0.15-1.2)
[2025-04-26 10:40] LABS: Lactic Sepsis W/Reflex 3.6 mmol/L (0.5-2.2); Troponin(5th) Baseline < 6 ng/L (0-15)
[2025-04-26 10:52] LABS: Bilirubin Urine Negative (Negative); Blood Urine 1+ (Negative); Glucose Urine UA Negative (Normal); Ketones Urine Trace (Negative); Leukocyte Esterase Urine 3+ (Negative); Nitrate Urine Positive (Negative); Protein Urine Trace (Negative); Urine Appearance Cloudy (CLEAR); Urine Color Dark Yellow (Yellow); pH Urine 5.5 (5-7)
[2025-04-26 10:54] LABS: Add Urine Microscopic? YES; Bacteria Urine EXCEEDS /hpf; Hyaline Casts Urine 3.71 /lpf; Squamous Epithelial Cell Urine 0-5 /hpf (0-5); WBC Urine >100 /hpf (0-5)
[2025-04-26 11:09] LABS: Add Urine Culture? Yes; UA Slide Review UA Slide Review Perf
[2025-04-26 11:26] LABS: Ammonia 154 umol/L (16-60)
[2025-04-26] MEDS: cefTRIAXone 1,000 mg SDV 1000 MG IVP (11:44)
[2025-04-26 12:07] LABS: Reflex Lactate Order REFLEX LACTIC ORDERD
[2025-04-26 12:15] LABS: Troponin 5 2HR < 6.0 ng/L (0-15); Troponin 5 2HR Delta 0 ABS# (0-10)
[2025-04-26 13:03] LABS: Lactic Acid level (Lactate) 2.6 mmol/L (0.5-2.2)
[2025-04-26] MEDS: sodium chloride 0.9% 2,313.33 ML 2313.33 ML IV (13:29)
--- NOTE | 2025-04-26 14:06 | PM.HP ---
Providers/Chief Complaint Admitting Physician: Brian Justice Primary Care Provider: Sanam Sosa DO Chief Complaint: ams History of Present Illness Bernardino Jackson is a 64 year old male patient, a [facility] resident with a history of type 2 diabetes mellitus, hypothyroidism, insomnia, chronic smoking, alcohol-induced liver cirrhosis, and prior prostate cancer (status post prostatectomy), presenting with acute altered mental status. The patient was brought in from the [facility] due to confusion and was found to have acute encephalopathy. The patient was unable to provide history on arrival. Family reports recurrent episodes of confusion, sometimes associated with urinary tract infections (UTIs) and a history of black stools and prior GI bleeding. In the emergency department, the patient was afebrile, with urinalysis suggestive of UTI (positive for nitrites, >100 WBCs, 3+ leukocyte esterase, 3-5 RBCs, excess bacteria). There were reports of blood in the stool, but this was not observed in the ED. Hemoglobin was 11.4, platelets 178, INR mildly elevated at 1.26, and ammonia elevated at 154. T-bilirubin was mildly elevated at 1.4, with normal AST, ALT, and ALP. Head CT showed no acute intracranial findings. Chest X-ray showed incidental atherosclerosis. EKG showed sinus rhythm at 102 bpm. The patient denied pain, headache, nausea, vomiting, abdominal discomfort, or breathing difficulties during the encounter. Family reports prior colonoscopy with polyp removal and recurrent UTIs, including a previous E. coli infection. The patient has not taken iron since the 6th. There is a guardian (son) who is not present. The patient expressed a wish not to have CPR if a dire event occurs. Review of Systems Const: Reports: other (Gen weakness); Denies: fever(s), chills, body aches or malaise ENMT: Denies: throat pain Card: Denies: chest pain, edema, pre-syncope or dyspnea on exertion Resp: Denies: dyspnea, productive cough, change in phlegm color or hemoptysis GI: Reports: other (Reported dark stool); Denies: abdominal pain, nausea, vomiting, diarrhea or constipation : Denies: flank pain, difficulty urinating, urinary frequency or hematuria Musc: Denies: back pain, joint swelling or joint redness Skin/Breast: Denies: rash or new lesions Neuro: Reports: confusion; Denies: headache(s) Medications/Allergies Home Medications ?Medication ?Instructions ?Recorded ?Confirmed ?Last Taken ?Type metformin 1,000 mg tablet 1,000 mg PO BID 11/18/19 04/26/25 04/25/25 19:10 History gabapentin 100 mg capsule 100 mg PO TID 02/12/23 04/26/25 04/25/25 06:30 History potassium chloride 10 mEq 10 meq PO BID 09/15/23 04/26/25 04/25/25 19:10 History tablet,extended release temazepam 15 mg capsule 15 mg PO BEDTIME PRN Sleep 09/15/23 04/26/25 04/22/25 20:00 History ketoconazole 2 % shampoo See Rx Instructions .Route 02/28/25 04/26/25 04/19/25 09:05 History .COMPLEX PRN Skin Irritation ketoconazole 2 % topical cream See Rx Instructions .Route 02/28/25 04/26/25 Unknown History .COMPLEX PRN Skin Irritation acetaminophen 325 mg tablet 650 mg (2 x 325 mg) PO Q6H PRN 03/13/25 04/26/25 04/03/25 20:20 Rx Mild/Mod Pain Or Temp >/= 101 #30 tabs multivitamin with folic acid 400 1 tab PO DAILY #30 tabs 03/13/25 04/26/25 04/12/25 07:25 Rx mcg tablet (Thera) thiamine mononitrate (vit B1) 100 100 mg PO DAILY #30 tabs 03/13/25 04/26/25 04/25/25 06:30 Rx mg tablet (Vitamin B-1 (mononitrate)) acetaminophen 325 mg tablet 650 mg PO TID PRN Pain 04/26/25 04/26/25 04/25/25 19:10 History (Tylenol) bisacodyl 10 mg rectal suppository 10 mg MA DAILY PRN constipation 04/26/25 04/26/25 Unknown History (Dulcolax (bisacodyl)) bisacodyl 5 mg tablet,delayed 10 mg PO DAILY PRN constipation 04/26/25 04/26/25 Unknown History release (Dulcolax (bisacodyl)) cephalexin 500 mg capsule 500 mg PO TID 04/26/25 04/26/25 04/19/25 19:40 History diclofenac sodium 1 % topical gel 1 g topical TID 04/26/25 04/26/25 04/26/25 07:10 History hydrocodone 5 mg-acetaminophen 325 1 tab PO Q8H PRN Pain 04/26/25 04/26/25 03/28/25 20:35 History mg tablet hydrocodone 5 mg-acetaminophen 325 1 tab PO TID PRN Pain 04/26/25 04/26/25 04/24/25 21:15 History mg tablet multivitamin,tx-minerals 1 tab PO DAILY 04/26/25 04/26/25 04/25/25 06:30 History Allergies Allergy/AdvReac Type Severity Reaction Status Date / Time No Known Allergies Allergy Verified 02/27/25 23:41 PFSH Acute PFSH: Medical History (Updated 04/26/25 @ 14:31 by Brian Justice MD) History of colon polyps Prostate cancer Liver cirrhosis Insomnia Type 2 diabetes mellitus Hypothyroidism Surgical History H/O prostatectomy History of esophagogastroduodenoscopy Family History Mother Diabetes mellitus, type 2 Social History Smoking and tobacco/nicotine status: current every day tobacco/nicotine user Alcohol intake: former Substance/Drug Use: unknown Vitals/I&O/Wt Last Vital Signs Temp 98.9 F 04/26/25 10:14 Pulse 100 04/26/25 13:21 Resp 16 04/26/25 13:21 BP 117/76 04/26/25 13:21 Pulse Ox 96 04/26/25 13:21 O2 Del Method Room Air 04/26/25 10:14 Weight last 48 hrs Weight 77.111 kg Physical Exam Narrative: Accompanied by his grandchildren Const: COMMON NORMALS: alert; negative for patient oriented x3 GENERAL APPEARANCE: cooperative ORIENTATION/CONSCIOUSNESS: Yes awake HENMT: COMMON NORMALS: oropharynx normal Neck/C-Spine: COMMON NORMALS: no JVD Resp: COMMON NORMALS: normal respiratory effort and clear to auscultation bilaterally AUSCULTATION: clear to auscultation bilaterally Cardio: COMMON NORMALS: no JVD, regular rhythm, S1 normal heart sound present, S2 normal heart sound present and No murmurs present (Cardio) RHYTHM: regular rhythm HEART SOUNDS: S1 normal heart sound present and S2 normal heart sound present GI: COMMON NORMALS: Normal to inspection, nondistended, normoactive bowel sounds present, Soft to palpation and non-tender PALPATION: Yes Soft to palpation Extremity: COMMON NORMALS: no joint enlargement and no pedal edema Neuro: COMMON NORMALS: moves all extremities; negative for patient oriented x3 SENSORIUM/ORIENTATION: Yes alert Skin: COMMON NORMALS: no rashes or lesions noted GENERAL SKIN EXAM: no rashes or lesions noted Data 04/26/25 09:45 04/26/25 09:45 Micro: Microbiology 04/26/25 11:51 Blood Culture - Preliminary Blood SPECIMEN COLLECTED 04/26/25 11:49 Blood Culture - Preliminary Blood SPECIMEN COLLECTED A&P Assessment and plan (1) Complicated UTI (urinary tract infection): Urinary tract infection (recurrent) : Urinalysis shows >100 WBCs, positive nitrites, 3+ leukocyte esterase, 3-5 RBCs, and excess bacteria. History of recurrent UTIs, including prior E. coli infection. Currently on antibiotics started in ED. No urinary retention symptoms reported. Patient is in briefs, which may increase risk but is necessary for care. No catheter planned unless necessary. - Continue current antibiotics as started in ED, pending urine culture results. - Send urine cultures to confirm organism and sensitivities. - Monitor for urinary retention; order renal and bladder ultrasound to assess for post-void residual or hydronephrosis. - Please refer to urology follow-up after discharge for recurrent UTI evaluation. (2) Acute encephalopathy: Acute metabolic encephalopathy (likely multifactorial: hepatic and infectious) : Patient presents with acute confusion and altered mental status, unable to provide history. Family reports recurrent episodes, often associated with infections and cirrhosis. Ammonia is elevated (154), supporting hepatic encephalopathy. No acute findings on head CT. UTI may be a precipitating factor. No evidence of pneumonia. No pain, headache, or focal neurological deficits reported. Reviewed vitals, CBC, INR, CMP, troponin, UA, head CT, chest x-ray, EKG, on my interpretation sinus tachycardia, pending official read. Reviewed ED provider note, discussed with ED provider. - Initiate lactulose to promote regular bowel movements and reduce ammonia levels. - Treat UTI - Monitor mental status and bowel movement frequency. - Monitor for further episodes of confusion. (3) Melena: Family reports prior episodes of black stools and GI bleeding, with history of colonoscopy and polyp removal. No ana bleeding or large volume black stool currently. Hemoglobin stable at 11.4. No iron supplementation since the 6th. Plan to monitor for GI bleeding during hospitalization. - Monitor stool for blood; send sample to lab if black or suspicious stool observed. - Monitor hemoglobin and hematocrit for evidence of ongoing bleeding. - Consider starting acid karyna (e.g., Protonix) if not already on it. - follow-up for possible repeat endoscopy (upper and/or lower) if indicated. (4) Acute hepatic encephalopathy: Lactulose as above. Recheck ammonia level. (5) Alcoholic cirrhosis: Alcohol-induced liver cirrhosis with hepatic encephalopathy : History of alcohol-induced cirrhosis. Ammonia elevated, T-bilirubin mildly elevated, INR mildly elevated. Recurrent episodes of confusion. No current evidence of acute GI bleeding or decompensated liver failure. Family and patient discussed palliative and hospice care options, but no decision made at this time. - Continue lactulose for ammonia reduction. - Monitor liver function tests and ammonia levels. - Discuss palliative care and hospice options with family as appropriate. (6) Generalized weakness: Treat underlying conditions as above. PT evaluation. Plan DM2: Consistent carbohydrate diet, monitor POC glucose. SSI insulin. Hypothyroidism: Check TSH PDMP PDMP Reviewed: Not Reviewed Attestations Medical Necessity Statement*: Admission over 2 midnights anticipated for assessment management of complicated UTI, recurrent UTI, acute encephalopathy with UTI and hepatic encephalopathy in a gentleman with underlying liver cirrhosis, additional comorbidities as above. and High MDM includes amount and/or complexity of data reviewed/ordered [ previous or external records, resulted lab(s)/test(s), ordered lab(s)/test(s), independent historian and other healthcare professional discussion] and described risk of complication, morbidity or mortality of management as documented Diagnoses Complicated UTI (urinary tract infection) N39.0 Acute encephalopathy G93.40 Melena K92.1 Acute hepatic encephalopathy K76.82 Alcoholic cirrhosis K70.30 Generalized weakness R53.1
--- NOTE | 2025-04-26 14:17 | USR_ITS ---
PROCEDURE INFORMATION: Exam: US Retroperitoneal, Complete, Kidneys and Bladder Exam date and time: 04/26/2025 3:04 PM Age: 64 years old Clinical indication: Other: Recurrent UTI; Additional info: Recurrent UTI, assess for hydro or retention TECHNIQUE: Imaging protocol: Real-time ultrasound of the retroperitoneum with image documentation. Complete exam focused on the bilateral kidneys and urinary bladder. COMPARISON: [place] liver [id number] 02/13/2023 7:23 PM FINDINGS: Right kidney: Normal. No stones. No hydronephrosis. Left kidney: Normal. No stones. No hydronephrosis. Urinary bladder: Unremarkable. US/US renal BI* [id number] IMPRESSION: Unremarkable kidneys and bladder.
[2025-04-26] MEDS: gabapentin 100 mg Capsule PO ×2 (14:53→20:17)
[2025-04-26] MEDS: lactulose oral liq 20 gm/30 mL UDC PO ×2 (14:53→20:17)
[2025-04-26 15:06] LABS: Thyroid Stimulating Hormone 2.23 uIU/mL (0.27-4.20)
--- NOTE | 2025-04-26 16:10 | ECG_ITS ---
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 Measurements Intervals [place] Rate: 97 P: 60 [place]: 157 QRS: 29 QRSD: 78 T: 7 QT: 398 QTc: 508 Interpretive Statements SINUS RHYTHM SEPTAL MYOCARDIAL INFARCTION , OF INDETERMINATE AGE [40+ ms Q WAVE IN V1/V2] Compared to ECG 04/26/2025 10:17:46 Sinus tachycardia no longer present Myocardial infarct finding still present Electronically Signed On 04-28-2025 19:38:38 CDT by Talon Márquez M.D. [email or web address]
[2025-04-26] MEDS: sodium chloride 0.9% 1,000 ML 100 ML IV (16:16)
[2025-04-26 16:33] LABS: Troponin 5 6HR < 6.0 ng/L (0-15); Troponin 5 6HR Delta 0 ng/L (0-12)
--- NOTE | 2025-04-26 16:49 | PC.NURSE ---
Pt had large black loose bowel movement, derrick care performed with full bed change
[2025-04-26 17:15] LABS: Glucose Point of Care 121 mg/dL (70-110)
[2025-04-26 20:53] LABS: Glucose Point of Care 121 mg/dL (70-110)
[2025-04-27] VITALS: BP 114/72; PULSE 98; RESP 18; TEMP 36.7; O2SAT 92
[2025-04-27] MEDS: lactulose oral liq 20 gm/30 mL UDC PO ×4 (02:59→21:29)
[2025-04-27 04:00] VITALS: BP 111/64; PULSE 91; RESP 16; TEMP 36.8; O2SAT 96
[2025-04-27 04:37] LABS: Basophils # 0.1 10^3/uL (0.0-0.1); Basophils % 0.9 %; Eosinophils # 0.2 10^3/uL (0.0-0.8); Eosinophils % 2.6 %; Lymphocytes # 2.1 10^3/uL (0.8-4.8); Lymphocytes % 30.1 %; Mean Corpuscular HGB Conc 33.4 g/dL (30-55); Mean Corpuscular Hemoglobin 32.6 pg (27-33); Mean Corpuscular Volume 97.3 fl (82-101); Mean Platelet Volume 8.4 fL (7.4-10.4); Monocytes # 0.6 10^3/uL (0.2-0.9); Monocytes % 8.4 %; Neutrophils # 3.91 10^3/uL (1.8-7.7); Neutrophils % 57.6 %; Nucleated Red Blood Cells % 0 %; Platelet Count 140 10^3/cmm (157-399); Red Blood Count 2.98 10^6/uL (3.85-5.65); Red Cell Distribution Width 15.4 % (12.1-15.1)
[2025-04-27 04:57] LABS: Ammonia 72 umol/L (16-60)
[2025-04-27 05:00] LABS: Alanine Aminotransferase 15 U/L (0-41); Albumin Level 2.2 g/dL (3.5-5.2); Alkaline Phosphatase 82 U/L (40-130); Anion Gap 13.1 (5-19); Aspartate Amino Transferase 31 U/L (0-40); Blood Urea Nitrogen 11 mg/dL (8-23); Calcium 8.1 mg/dL (8.5-10.5); Carbon Dioxide 18 mmol/L (22-29); Chloride 112 mmol/L (98-107); Globulin 4.6 g/dL (1.3-4.6); Glomerular Filtration Rate 215.2 mL/min (90-130); Glucose 100 mg/dL (65-115); Osmolality Calculated 289 mOsm/kg (285-295); Potassium 3.1 mmol/L (3.5-5.1); Sodium 140 mmol/L (136-145); Total Protein 6.8 g/dL (6.6-8.7)
[2025-04-27 06:46] LABS: Glucose Point of Care 96 mg/dL (70-110)
[2025-04-27] MEDS: cefTRIAXone 1,000 mg SDV 1000 MG IVP (07:20)
[2025-04-27] MEDS: multivitamin therapeutic Tablet 1 TAB PO (07:21)
[2025-04-27] MEDS: gabapentin 100 mg Capsule PO ×3 (07:21→21:29)
[2025-04-27] MEDS: thiamine 100 mg Tablet PO (07:21)
[2025-04-27 07:43] VITALS: BP 122/68; PULSE 85; RESP 17; TEMP 36.4; O2SAT 94
[2025-04-27 11:03] LABS: Glucose Point of Care 187 mg/dL (70-110)
[2025-04-27] MEDS: insulin lispro 100 unit/1 mL SUBCUT ×2 (12:09→17:13)
[2025-04-27 12:21] VITALS: BP 104/52; PULSE 87; RESP 17; TEMP 36.6; O2SAT 96
--- NOTE | 2025-04-27 15:06 | P.PN_ITS ---
Subjective 2 Subjective: Patient was seen this morning, currently alert to person, to place, not to time, follows all commands denies any fevers, no chills, no cough, does report generalized weakness Vitals/I&O/Wt Last Vital Signs Temp 97.9 F 04/27/25 12:21 Pulse 87 04/27/25 12:21 Resp 17 04/27/25 12:21 BP 104/52 04/27/25 12:21 Pulse Ox 96 04/27/25 12:21 O2 Del Method Room Air 04/27/25 07:43 04/27/25 04/27/25 04/27/25 06:59 14:59 22:59 Intake Total 0 / 2916.663 240 / 240 Balance 0 / 2916.663 240 / 240 Weight last 48 hrs Weight 48.534 kg Weight 77.111 kg Weight 77.111 kg Physical Exam 2 Const: COMMON NORMALS: no acute distress ORIENTATION/CONSCIOUSNESS: Yes awake, Yes oriented to person and Yes oriented to place; not oriented to time Resp: COMMON NORMALS: normal respiratory effort, No retractions, No use of accessory muscles and clear to auscultation bilaterally AUSCULTATION: clear to auscultation bilaterally Cardio: COMMON NORMALS: regular rate, regular rhythm, S1 normal heart sound present and S2 normal heart sound present RATE: regular rate RHYTHM: r egular rhythm HEART SOUNDS: S1 normal heart sound present and S2 normal heart sound present GI: COMMON NORMALS: Normal to inspection, nondistended, normoactive bowel sounds present and non-tender Extremity: COMMON NORMALS: no pedal edema Neuro: COMMON NORMALS: CN's II-XII intact bilaterally and moves all extremities SENSORIUM/ORIENTATION: Yes oriented to person, Yes oriented to place and No oriented to time Psych: COMMON NORMALS: mental status grossly normal Data 04/27/25 04:29 04/27/25 04:29 Micro: Microbiology 04/26/25 11:51 Blood Culture - Preliminary Blood NEGATIVE TO DATE 04/26/25 11:49 Blood Culture - Preliminary Blood NEGATIVE TO DATE 04/26/25 10:42 Urine Culture - Preliminary Urine,Clean Catch Gram Negative Rods 04/27/25 00:30 Occult Blood (FIT) - Final Stool A&P Assessment and plan (1) Complicated UTI (urinary tract infection): - Follow urine culture continue Rocephin - Continue Rocephin (2) Acute encephalopathy: - Metabolic - Related to hyperammonemia - Related to UTI (3) Melena: - Monitor hemoglobin (4) Acute hepatic encephalopathy: - Ammonia 72 -Lactulose (5) Alcoholic cirrhosis: - Lactulose (6) Generalized weakness: Treat underlying conditions as above. PT evaluation. Plan DM2: Consistent carbohydrate diet, monitor POC glucose. SSI insulin. Hypothyroidism: TSH 2.23 PDMP PDMP Reviewed: Not Reviewed Attestations 2 Medical Necessity Statement*: Requires hospitalization for complicated UTI, acute encephalopathy, hyperammonemia Diagnoses Complicated UTI (urinary tract infection) N39.0 Acute encephalopathy G93.40 Melena K92.1 Acute hepatic encephalopathy K76.82 Alcoholic cirrhosis K70.30 Generalized weakness R53.1
[2025-04-27] MEDS: potassium chloride ER 20 mEq Tablet 40 MEQ PO (15:15)
[2025-04-27 15:38] LABS: Glucose Point of Care 166 mg/dL (70-110)
[2025-04-27 18:04] VITALS: BP 111/70; PULSE 96; RESP 17; TEMP 36.7; O2SAT 95
[2025-04-27 19:37] VITALS: BP 120/70; PULSE 106; RESP 17; TEMP 36.9; O2SAT 95
[2025-04-27 21:05] LABS: Glucose Point of Care 128 mg/dL (70-110)
[2025-04-28] VITALS (7 sets, daily range): BP systolic 101–116; BP diastolic 64–72; PULSE 68–99; RESP 16–18; TEMP 36.6–37.1; O2SAT 94–95
[2025-04-28] MEDS: lactulose oral liq 20 gm/30 mL UDC PO ×3 (02:25→15:42)
[2025-04-28 03:53] LABS: Basophils % 0.6 %; Eosinophils # 0.2 10^3/uL (0.0-0.8); Eosinophils % 3.8 %; Hematocrit 28.1 % (37-53); Lymphocytes # 1.9 10^3/uL (0.8-4.8); Mean Corpuscular HGB Conc 33.5 g/dL (30-55); Mean Corpuscular Hemoglobin 32.1 pg (27-33); Mean Corpuscular Volume 95.9 fl (82-101); Mean Platelet Volume 8.8 fL (7.4-10.4); Monocytes # 0.6 10^3/uL (0.2-0.9); Monocytes % 9.9 %; Neutrophils # 3.52 10^3/uL (1.8-7.7); Neutrophils % 55.2 %; Nucleated Red Blood Cells % 0 %; Platelet Count 127 10^3/cmm (157-399); Red Blood Count 2.93 10^6/uL (3.85-5.65); White Blood Count 6.37 10^3/uL (3.29-11.43)
[2025-04-28 04:13] LABS: Ammonia 54 umol/L (16-60)
[2025-04-28 04:15] LABS: Alanine Aminotransferase 13 U/L (0-41); Albumin Level 2.4 g/dL (3.5-5.2); Alkaline Phosphatase 82 U/L (40-130); Anion Gap 15.2 (5-19); Aspartate Amino Transferase 26 U/L (0-40); Blood Urea Nitrogen 7 mg/dL (8-23); Calcium 7.6 mg/dL (8.5-10.5); Carbon Dioxide 17 mmol/L (22-29); Chloride 111 mmol/L (98-107); Glomerular Filtration Rate 215.2 mL/min (90-130); Glucose 101 mg/dL (65-115); Osmolality Calculated 288 mOsm/kg (285-295); Potassium 3.2 mmol/L (3.5-5.1); Sodium 140 mmol/L (136-145); Total Bilirubin 0.9 mg/dL (0.15-1.2); Total Protein 6.4 g/dL (6.6-8.7)
[2025-04-28 06:45] LABS: Glucose Point of Care 110 mg/dL (70-110)
[2025-04-28] MEDS: thiamine 100 mg Tablet PO (09:03)
[2025-04-28] MEDS: cefTRIAXone 1,000 mg SDV 1000 MG IVP (09:03)
[2025-04-28] MEDS: gabapentin 100 mg Capsule PO ×3 (09:03→21:04)
[2025-04-28] MEDS: multivitamin therapeutic Tablet 1 TAB PO (09:03)
[2025-04-28 12:12] LABS: Glucose Point of Care 158 mg/dL (70-110)
[2025-04-28] MEDS: insulin lispro 100 unit/1 mL SUBCUT (12:22)
--- NOTE | 2025-04-28 12:53 | P.PN_ITS ---
Subjective 2 Subjective: Patient was seen this morning, currently alert oriented to person, to place, not to time, denies any fevers, chills, no cough Vitals/I&O/Wt Last Vital Signs Temp 98.0 F 04/28/25 11:41 Pulse 93 04/28/25 11:41 Resp 16 04/28/25 11:41 BP 105/64 04/28/25 11:41 Pulse Ox 95 04/28/25 11:41 O2 Del Method Room Air 04/28/25 11:41 04/27/25 04/28/25 04/28/25 22:59 06:59 14:59 Intake Total 876.667 / 1116.667 360 / 360 Balance 876.667 / 1116.667 360 / 360 Weight last 48 hrs Weight 50.031 kg Weight 48.534 kg Weight 77.111 kg Physical Exam 2 Const: COMMON NORMALS: no acute distress and patient oriented x3 Resp: COMMON NORMALS: normal respiratory effort, No retractions, No use of accessory muscles and clear to auscultation bilaterally AUSCULTATION: clear to auscultation bilaterally Cardio: COMMON NORMALS: regular rate, regular rhythm, S1 normal heart sound present and S2 normal heart sound present RATE: regular rate RHYTHM: r egular rhythm HEART SOUNDS: S1 normal heart sound present and S2 normal heart sound present GI: COMMON NORMALS: Normal to inspection, nondistended, normoactive bowel sounds present and non-tender Extremity: COMMON NORMALS: no pedal edema Neuro: COMMON NORMALS: patient oriented x3 Psych: COMMON NORMALS: mental status grossly normal Data 04/28/25 03:45 04/28/25 03:45 Micro: Microbiology 04/26/25 10:42 Urine Culture - Final Urine,Clean Catch Escherichia coli 04/26/25 11:51 Blood Culture - Preliminary Blood NEGATIVE TO DATE 04/26/25 11:49 Blood Culture - Preliminary Blood NEGATIVE TO DATE A&P Assessment and plan (1) Complicated UTI (urinary tract infection): - Follow urine culture continue Rocephin - Continue Rocephin (2) Acute encephalopathy: - Metabolic - Related to hyperammonemia - Related to UTI (3) Melena: - Monitor hemoglobin (4) Acute hepatic encephalopathy: - Ammonia 72 -Lactulose (5) Alcoholic cirrhosis: - Lactulose (6) Generalized weakness: Treat underlying conditions as above. PT evaluation. Plan DM2: Consistent carbohydrate diet, monitor POC glucose. SSI insulin. Hypothyroidism: TSH 2.23 PDMP PDMP Reviewed: Not Reviewed Attestations 2 Medical Necessity Statement*: Patient requires hospitalization for complicated UTI Diagnoses Complicated UTI (urinary tract infection) N39.0 Acute encephalopathy G93.40 Melena K92.1 Acute hepatic encephalopathy K76.82 Alcoholic cirrhosis K70.30 Generalized weakness R53.1
[2025-04-28 12:59] LABS: Anion Gap 14.1 (5-19); Blood Urea Nitrogen 7 mg/dL (8-23); Calcium 7.6 mg/dL (8.5-10.5); Carbon Dioxide 20 mmol/L (22-29); Chloride 106 mmol/L (98-107); Creatinine Clr Calc Pharmacy 64.2759; Glomerular Filtration Rate 215.2 mL/min (90-130); Glucose 149 mg/dL (65-115); Osmolality Calculated 285 mOsm/kg (285-295); Potassium 3.1 mmol/L (3.5-5.1); Sodium 137 mmol/L (136-145)
[2025-04-28 17:01] LABS: Glucose Point of Care 131 mg/dL (70-110)
[2025-04-28] MEDS: potassium chloride ER 20 mEq Tablet 40 MEQ PO (18:21)
[2025-04-28 20:34] LABS: Glucose Point of Care 119 mg/dL (70-110)
[2025-04-28] MEDS: temazepam 15 mg Capsule PO (21:30)
[2025-04-29 03:37] VITALS: BP 172/74; PULSE 84; RESP 17; TEMP 36.5; O2SAT 93
[2025-04-29 05:27] LABS: Basophils % 0.8 %; Eosinophils # 0.3 10^3/uL (0.0-0.8); Eosinophils % 5.6 %; Hematocrit 27.8 % (37-53); Lymphocytes # 1.7 10^3/uL (0.8-4.8); Lymphocytes % 32.2 %; Mean Corpuscular HGB Conc 35.3 g/dL (30-55); Mean Corpuscular Volume 90.8 fl (82-101); Mean Platelet Volume 9.2 fL (7.4-10.4); Monocytes # 0.6 10^3/uL (0.2-0.9); Monocytes % 11.3 %; Neutrophils # 2.65 10^3/uL (1.8-7.7); Neutrophils % 49.9 %; Nucleated Red Blood Cells % 0 %; Platelet Count 141 10^3/cmm (157-399); Red Blood Count 3.06 10^6/uL (3.85-5.65); Red Cell Distribution Width 15.9 % (12.1-15.1); White Blood Count 5.31 10^3/uL (3.29-11.43)
[2025-04-29 05:39] LABS: Ammonia 50 umol/L (16-60)
[2025-04-29 05:46] LABS: Alanine Aminotransferase 11 U/L (0-41); Albumin Level 2.4 g/dL (3.5-5.2); Alkaline Phosphatase 79 U/L (40-130); Anion Gap 13.4 (5-19); Aspartate Amino Transferase 23 U/L (0-40); Blood Urea Nitrogen 5 mg/dL (8-23); Calcium 7.6 mg/dL (8.5-10.5); Carbon Dioxide 18 mmol/L (22-29); Chloride 110 mmol/L (98-107); Glucose 84 mg/dL (65-115); Osmolality Calculated 282 mOsm/kg (285-295); Potassium 3.4 mmol/L (3.5-5.1); Sodium 138 mmol/L (136-145); Total Bilirubin 1.2 mg/dL (0.15-1.2); Total Protein 6.4 g/dL (6.6-8.7)
[2025-04-29 06:29] LABS: Glucose Point of Care 88 mg/dL (70-110)
[2025-04-29 07:08] VITALS: BP 100/65; PULSE 87; RESP 17; TEMP 36.7; O2SAT 94
--- NOTE | 2025-04-29 09:18 | XR_ITS ---
WS: [id number] Exam: XR shoulder RT min 2V* [id number] Date/Time of Exam: 04/29/2025 10:39 AM Reason For Exam: pain, decrease rom Comparison 02/28/2025. There appears to be some cortical erosion along the lateral aspect of the humeral head. No obvious acute fracture. Degenerative changes of the glenohumeral joint and the AC joint. Recommendations: CT or MRI of the shoulder could be helpful for further work-up if thought to be clinically warranted. XR/XR shoulder RT min 2V* [id number] IMPRESSION: 1. New loss of bony cortex along the lateral aspect of the humeral head. This c ould be due to fracture or bone destruction. 2. Moderate degenerative changes.
[2025-04-29] MEDS: potassium chloride ER 20 mEq Tablet 40 MEQ PO (09:39)
[2025-04-29] MEDS: thiamine 100 mg Tablet PO (09:40)
[2025-04-29] MEDS: gabapentin 100 mg Capsule PO ×3 (09:40→21:04)
[2025-04-29] MEDS: cefTRIAXone 1,000 mg SDV 1000 MG IVP (09:40)
[2025-04-29] MEDS: multivitamin therapeutic Tablet 1 TAB PO (09:40)
--- NOTE | 2025-04-29 10:02 | PC.SOCIAL ---
IMM Update pg 2 of IMM Updated and reviewed w/ patient. Copy provided and copy dated, initialed and placed in chart.
[2025-04-29 10:57] LABS: Glucose Point of Care 135 mg/dL (70-110)
[2025-04-29 11:01] VITALS: BP 93/59; PULSE 93; RESP 17; TEMP 36.6; O2SAT 96
--- NOTE | 2025-04-29 14:22 | CT_ITS ---
WS: [id number] CT RIGHT SHOULDER, NONCONTRAST HISTORY: right shoulder pain Technique: All CT scans at [facility] use at least one of these dose optimization techniques: automated exposure control; mA and/or kV adjustment per patient size (includes targeted exams where dose is matched to clinical indication); or iterative reconstruction. DLP: 249.02 mGy.cm COMPARISON: Radiograph 04/29/2025 Significantly abnormal appearance of the RIGHT shoulder. Loss of the normal trabecular pattern and cortex involving the superior lateral RIGHT humeral head. There is loss of the normal cortex with loss of bone structure. Changes within the bone extend to the medial humeral head. Loss of the normal cortex. Loss of the normal cortex involving the inferior glenoid. Bones are diffusely osteopenic. There is an avulsion from fracture from the inferior glenoid. Small spicules of bone in the glenohumeral joint. The remaining trabecular pattern appears appropriate. There is significant soft tissue synovial thickening surrounding the humeral head and glenoid. This does not appear to be a simple joint effusion. Paraseptal emphysema. Small nonpathologic RIGHT axillary lymph nodes. CT/CT shoulder RT wo con* [id number] IMPRESSION: 1. Abnormal RIGHT shoulder. Loss of the normal cortex involving portions of th e RIGHT humeral head and the glenoid. Lytic changes in the humeral head and gle noid. 2. Pathological versus posttraumatic fracture from the inferior glenoid. 3. Marked diffuse synovial thickening RIGHT shoulder joint versus complex flui d. 4. RIGHT shoulder joint infection with developing osteomyelitis should be cons idered. Lucencies with loss of normal cortex and bone fragmentation at the shou lder joint. Recommend MRI evaluation of the RIGHT shoulder with and without con trast to evaluate for osteomyelitis/synovitis and marrow edema. Within the diff erential but thought less likely are metastatic bone disease or fractures relat ed to recent trauma.
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
[2025-04-29] MEDS: lactulose oral liq 20 gm/30 mL UDC PO ×2 (15:09→21:04)
[2025-04-29 15:42] VITALS: BP 96/61; PULSE 88; RESP 17; TEMP 36.8; O2SAT 96
[2025-04-29 16:41] LABS: Glucose Point of Care 107 mg/dL (70-110)
[2025-04-29 20:00] VITALS: BP 108/69; PULSE 94; RESP 16; TEMP 36.8; O2SAT 97
[2025-04-29 20:27] LABS: Glucose Point of Care 152 mg/dL (70-110)
[2025-04-29] MEDS: insulin lispro 100 unit/1 mL SUBCUT (21:04)
[2025-04-29] MEDS: temazepam 15 mg Capsule PO (21:09)
[2025-04-29 23:52] VITALS: BP 97/61; PULSE 91; RESP 16; TEMP 36.8
[2025-04-30] MEDS: lactulose oral liq 20 gm/30 mL UDC PO ×2 (02:23→08:24)
[2025-04-30 03:50] VITALS: BP 90/60; PULSE 97; RESP 16; TEMP 36.7
[2025-04-30 05:31] LABS: Basophils # 0.1 10^3/uL (0.0-0.1); Basophils % 0.8 %; Eosinophils # 0.4 10^3/uL (0.0-0.8); Eosinophils % 5.9 %; Lymphocytes # 1.8 10^3/uL (0.8-4.8); Lymphocytes % 29.8 %; Mean Corpuscular HGB Conc 32.9 g/dL (30-55); Mean Corpuscular Hemoglobin 31.8 pg (27-33); Mean Corpuscular Volume 96.6 fl (82-101); Mean Platelet Volume 9.1 fL (7.4-10.4); Monocytes # 0.7 10^3/uL (0.2-0.9); Monocytes % 11.9 %; Neutrophils # 3.01 10^3/uL (1.8-7.7); Neutrophils % 51.1 %; Nucleated Red Blood Cells % 0 %; Platelet Count 171 10^3/cmm (157-399); Red Blood Count 3.21 10^6/uL (3.85-5.65); Red Cell Distribution Width 16.5 % (12.1-15.1)
[2025-04-30 05:48] LABS: Alanine Aminotransferase 12 U/L (0-41); Albumin Level 2.4 g/dL (3.5-5.2); Alkaline Phosphatase 88 U/L (40-130); Anion Gap 14.6 (5-19); Aspartate Amino Transferase 24 U/L (0-40); Blood Urea Nitrogen 6 mg/dL (8-23); Calcium 7.9 mg/dL (8.5-10.5); Carbon Dioxide 20 mmol/L (22-29); Chloride 107 mmol/L (98-107); Globulin 4.5 g/dL (1.3-4.6); Glomerular Filtration Rate 215.2 mL/min (90-130); Glucose 86 mg/dL (65-115); Osmolality Calculated 283 mOsm/kg (285-295); Potassium 3.6 mmol/L (3.5-5.1); Sodium 138 mmol/L (136-145); Total Bilirubin 1.1 mg/dL (0.15-1.2); Total Protein 6.9 g/dL (6.6-8.7)
[2025-04-30 06:30] LABS: Glucose Point of Care 87 mg/dL (70-110)
[2025-04-30 07:25] VITALS: BP 99/62; PULSE 88; RESP 17; TEMP 36.7; O2SAT 96
--- NOTE | 2025-04-30 08:11 | MRR_ITS ---
PROCEDURE INFORMATION: Exam: MR Right Upper Extremity Joint Without and With Contrast; Shoulder Exam date and time: 04/30/2025 10:15 AM Age: 64 years old Clinical indication: Pain and abnormal findings; Abnormal imaging study of the limbs; CT shoulder; Abnormal CT: Abnormal right shoulder. Loss of the normal cortex involving portions of the right humeral head and the glenoid. Lytic changes in the humeral head and glenoid. ; Additional info: Right shoulder pain TECHNIQUE: Imaging protocol: Magnetic resonance imaging of the right upper extremity without and with contrast. Exam focused on the shoulder. Contrast material: MULTIHANCE; Contrast volume: 10 ml; Contrast route: INTRAVENOUS (IV); COMPARISON: CT shoulder RT wo con* [id number] 04/29/2025 2:48 PM FINDINGS: Limitations: Motion artifact. Bones/joints: Mild superior subluxation of the humeral head within the glenoid fossa is noted. No dislocation. Mild osteophyte formation of the glenohumeral joint and acromioclavicular joint is present. Multifocal regions of abnormal moderate patchy abnormal marrow signal intensity throughout the humeral head, humeral metaphysis, visualized humeral shaft and glenoid is noted, characterized by hyperintensity on the fluid sensitive sequences with corresponding moderate enhancing T1 hypointensity. Indistinctness of the cortex portions of the superolateral aspect of the humeral head and greater tuberosity and portions of the posterosuperior glenoid are similar to the prior CT. [id number] thinning of the articular cartilage of the mid to superior glenoid and inferior medial humeral head is identified. Small glenohumeral joint effusion with evidence of mild synovial proliferation. Glenoid labrum: A tear of the posterosuperior labrum from the 9 to 12 o'clock position is noted. Supraspinatus tendon: Moderate abnormal increased signal intensity within the supraspinatus tendon is present. Marked thinning of the tendon fibers is noted consistent with partial-thickness bursal surface and undersurface tearing. No definite full-thickness tear. Infraspinatus tendon: Mild abnormal increased signal intensity within the infraspinatus tendon is identified. Subscapularis tendon: A large full-thickness subscapularis tendon tear is noted, with a small number of intact inferior fibers. Teres minor tendon: Unremarkable. No evidence of tear. Tendon of biceps brachii: Medial dislocation of the biceps tendon long head from the bicipital groove is present. Glenohumeral ligaments: Unremarkable. Soft tissues: Diffuse moderate muscular edema is noted. MR/MR shoulder RT wo/w con [id number] IMPRESSION: 1. Regions of abnormal marrow signal intensity in the visualized humerus and in the glenoid are noted associated with areas of cortical indistinctness of the humeral head, greater tuberosity and posterosuperior glenoid. The MRI appearance is concerning for possible septic arthritis with osteomyelitis. Inflammatory arthropathy there is an additional consideration. A malignant etiology involving the marrow is less likely but not excluded. 2. Partial-thickness tearing of the supraspinatus tendon. 3. Large full-thickness subscapularis tendon tear. 4. Medial dislocation of the biceps tendon long head from the bicipital groove. 5. Mild infraspinatus tendinosis. 6. Tear of the posterosuperior labrum. 7. Multifocal regions of muscular edema are present, which can be related to strain. Myositis or neuropathic changes are not excluded. 8. Glenohumeral joint and acromioclavicular joint primary osteoarthritic changes.
[2025-04-30] MEDS: cefTRIAXone 1,000 mg SDV 1000 MG IVP (08:24)
[2025-04-30] MEDS: gabapentin 100 mg Capsule PO (08:25)
[2025-04-30] MEDS: thiamine 100 mg Tablet PO (08:25)
[2025-04-30] MEDS: multivitamin therapeutic Tablet 1 TAB PO (08:25)
[2025-04-30 09:03] LABS: Erythrocyte Sedimentation Rate 55 mm/hr (0-10)
[2025-04-30 09:15] LABS: Procalcitonin 0.05 ng/mL (0-0.5)
[2025-04-30 09:27] LABS: C Reactive Protein 35.6 mg/L (0.0-4.9)
[2025-04-30] MEDS: gadobenate dimeglumine 20 mL vial 10 ML IV (10:41)
[2025-04-30 11:11] LABS: Glucose Point of Care 124 mg/dL (70-110)
[2025-04-30 11:31] VITALS: BP 92/64; PULSE 98; RESP 18; TEMP 36.8; O2SAT 97
--- NOTE | 2025-04-30 11:32 | PC.NURSE ---
Called report to Rebekah Kumar LPN at [facility] [id number] 04-30-2025
[2025-04-30 11:59] VITALS: BP 92/64; PULSE 98; RESP 18; TEMP 36.8; O2SAT 97
--- NOTE | 2025-05-12 12:55 | P.DS_ITS ---
Discharge Providers Date of Admission: 04/26/25 12:53 Date of Discharge: 04/30/2025 Attending Provider at Admission: Brian Justice Attending Provider at Discharge: Andrew Amato MD Primary Care Provider: Sanam Sosa DO Diagnoses at Discharge Discharge Diagnosis (1) Complicated UTI (urinary tract infection): Status: Acute (2) Acute encephalopathy: Status: Resolved (3) Melena: Status: Resolved (4) Acute hepatic encephalopathy: Status: Resolved (5) Alcoholic cirrhosis: Status: Acute (6) Generalized weakness: Status: Resolved Reason for Visit Reason for Visit: ams Hospital Course Hospital Course This is a 64-year-old male correction resident with type 2 diabetes, alcohol induced liver cirrhosis, prostate cancer, chronic smoking, insomnia, hypothyroidism, who presents to [facility] for altered mental status Patient was admitted to [facility] for altered mental status secondary to urinary tract infection, hyperammonemia. Patient was managed with IV antibiotics, p.o. lactulose, overall mentation improved, ammonia levels improved, transition to p.o. antibiotics, with plans on discharging to a correction On discharge there was concerns for right shoulder pain CT right shoulder - CT/CT shoulder RT wo con* [id number] IMPRESSION: 1. Abnormal RIGHT shoulder. Loss of the normal cortex involving portions of the RIGHT humeral head and the glenoid. Lytic changes in the humeral head and glenoid. 2. Pathological versus posttraumatic fracture from the inferior glenoid. 3. Marked diffuse synovial thickening RIGHT shoulder joint versus complex fluid. 4. RIGHT shoulder joint infection with developing osteomyelitis should be considered. Lucencies with loss of normal cortex and bone fragmentation at the shoulder joint. Recommend MRI evaluation of the RIGHT shoulder with and without contrast to evaluate for osteomyelitis/synovitis and marrow edema. Within the differential but thought less likely are metastatic bone disease or fractures related to recent trauma. 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 -Discussed with patient to plan on doing an MRI of right shoulder -Differential was likely avascular necrosis of right humeral head, however osteomyelitis of right humeral head could be a possibility, however no drug use, no overall shoulder swelling/erythema/tenderness, no fevers, no CKD leukocytosis, ESR 55, CRP 35.6, Pro-Arias 0.05 and blood cultures were negative -Discussed with patient that this is likely avascular necrosis of right humeral head, with osteoarthritis, given his history, his alcoholism, diabetes, his history of working at [employer] as a 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 Regions of abnormal marrow signal intensity in the visualized humerus and in the glenoid are noted associated with areas of cortical indistinctness of the humeral head, greater tuberosity and posterosuperior glenoid. The MRI appearance is concerning for possible septic arthritis with osteomyelitis. Inflammatory arthropathy there is an additional consideration. A malignant etiology involving the marrow is less likely but not excluded. 2. Partial-thickness tearing of the supraspinatus tendon. 3. Large full-thickness subscapularis tendon tear. 4. Medial dislocation of the biceps tendon long head from the bicipital groove. 5. Mild infraspinatus tendinosis. 6. Tear of the posterosuperior labrum. 7. Multifocal regions of muscular edema are present, which can be related to strain. Myositis or neuropathic changes are not excluded. 8. Glenohumeral joint and acromioclavicular joint primary osteoarthritic changes. - Patient was discharged before MRI results came back, as transportation had to pick him up at 1 PM to transport him to the correction -once MRI results came back from [facility], showed findings concerning for possible septic arthritis with osteomyelitis, roughly 1:05 PM, unfortunately patient was already on his way back to the correction at this point - [facility] was contacted to transport patient back to the hospital, as his MRI will need further workup including orthopedic consultation, IR guided bone marrow biopsy and arthrocentesis, and IV antibiotics Physical Exam Const: COMMON NORMALS: no acute distress and patient oriented x3 Resp: COMMON NORMALS: normal respiratory effort, No retractions, No use of accessory muscles and clear to auscultation bilaterally AUSCULTATION: clear to auscultation bilaterally Cardio: COMMON NORMALS: regular rate, regular rhythm, S1 normal heart sound present and S2 normal heart sound present RATE: regular rate RHYTHM: regular rhythm HEART SOUNDS: S1 normal heart sound present and S2 normal heart sound present GI: COMMON NORMALS: Normal to inspection, nondistended, normoactive bowel sounds present and non-tender Extremity: COMMON NORMALS: no pedal edema Neuro: COMMON NORMALS: patient oriented x3 Psych: COMMON NORMALS: mental status grossly normal Discharge Data Studies Completed and Pending Completed Studies During Hospitalization Category Date Time Status CT head wo con* [id number] Stat Cat Scan 04/26/25 10:[address] shoulder RT wo con* [id number] Routine Cat Scan 04/29/25 14:22 Completed XR chest 1V portable [id number] Stat Exams 04/26/25 10:10 Completed XR shoulder RT min 2V* [id number] Routine Exams 04/29/25 09:18 Completed MR shoulder RT wo/w con [id number] Routine MRI 04/30/25 08:11 Completed US renal BI* [id number] Routine Ultrasound 04/26/25 14:17 Completed Radiology Impressions Chest X-Ray 04/26/25 10:10 Impression: Atherosclerosis. Head CT 04/26/25 10:10 IMPRESSION: 1. No evidence of intracranial hemorrhage or mass effect. 2. No acute intracranial findings. Renal Ultrasound 04/26/25 14:17 IMPRESSION: Unremarkable kidneys and bladder. Shoulder X-Ray 04/29/25 09:18 IMPRESSION: 1. New loss of bony cortex along the lateral aspect of the humeral head. This could be due to fracture or bone destruction. 2. Moderate degenerative changes. Shoulder CT 04/29/25 14:22 IMPRESSION: 1. Abnormal RIGHT shoulder. Loss of the normal cortex involving portions of the RIGHT humeral head and the glenoid. Lytic changes in the humeral head and glenoid. 2. Pathological versus posttraumatic fracture from the inferior glenoid. 3. Marked diffuse synovial thickening RIGHT shoulder joint versus complex fluid. 4. RIGHT shoulder joint infection with developing osteomyelitis should be considered. Lucencies with loss of normal cortex and bone fragmentation at the shoulder joint. Recommend MRI evaluation of the RIGHT shoulder with and without contrast to evaluate for osteomyelitis/synovitis and marrow edema. Within the differential but thought less likely are metastatic bone disease or fractures related to recent trauma. Shoulder MRI 04/30/25 08:11 IMPRESSION: 1. Regions of abnormal marrow signal intensity in the visualized humerus and in the glenoid are noted associated with areas of cortical indistinctness of the humeral head, greater tuberosity and posterosuperior glenoid. The MRI appearance is concerning for possible septic arthritis with osteomyelitis. Inflammatory arthropathy there is an additional consideration. A malignant etiology involving the marrow is less likely but not excluded. 2. Partial-thickness tearing of the supraspinatus tendon. 3. Large full-thickness subscapularis tendon tear. 4. Medial dislocation of the biceps tendon long head from the bicipital groove. 5. Mild infraspinatus tendinosis. 6. Tear of the posterosuperior labrum. 7. Multifocal regions of muscular edema are present, which can be related to strain. Myositis or neuropathic changes are not excluded. 8. Glenohumeral joint and acromioclavicular joint primary osteoarthritic changes. Laboratory Results WBC 5.90 10^3/uL (3.29-11.43) 04/30/25 04:37 RBC 3.21 10^6/uL (3.85-5.65) L 04/30/25 04:37 Hgb 10.20 g/dL (11.27-16.99) L 04/30/25 04:37 Hct 31.0 % (37-53) L 04/30/25 04:37 MCV 96.6 fl (82-101) D 04/30/25 04:37 MCH 31.8 pg (27-33) 04/30/25 04:37 MCHC 32.9 g/dL (30-55) D 04/30/25 04:37 RDW 16.5 % (12.1-15.1) H 04/30/25 04:37 Plt Count 171 10^3/cmm (157-399) 04/30/25 04:37 MPV 9.1 fL (7.4-10.4) 04/30/25 04:37 Neut % (Auto) 51.1 % 04/30/25 04:37 Lymph % (Auto) 29.8 % 04/30/25 04:37 [place] % (Auto) 11.9 % 04/30/25 04:37 Eos % (Auto) 5.9 % 04/30/25 04:37 Baso % (Auto) 0.8 % 04/30/25 04:37 Neut # (Auto) 3.01 10^3/uL (1.8-7.7) 04/30/25 04:37 Lymph # (Auto) 1.8 10^3/uL (0.8-4.8) 04/30/25 04:37 [place] # (Auto) 0.7 10^3/uL (0.2-0.9) 04/30/25 04:37 Eos # (Auto) 0.4 10^3/uL (0.0-0.8) 04/30/25 04:37 Baso # (Auto) 0.1 10^3/uL (0.0-0.1) 04/30/25 04:37 Nucleated RBC % (auto) 0 % 04/30/25 04:37 Nucleated RBCs # 0.0 /100WBC 04/30/25 04:37 ESR 55 mm/hr (0-10) H 04/30/25 04:37 PT 16.60 SECONDS (12.1-14.9) H 04/26/25 09:45 INR 1.26 (0.8-1.2) H 04/26/25 09:45 APTT 33.6 SECONDS (23.9-36.7) 04/26/25 09:45 Sodium 138 mmol/L (136-145) 04/30/25 04:37 Potassium 3.6 mmol/L (3.5-5.1) 04/30/25 04:37 Chloride 107 mmol/L (98-107) 04/30/25 04:37 Carbon Dioxide 20 mmol/L (22-29) L 04/30/25 04:37 Anion Gap 14.6 (5-19) 04/30/25 04:37 BUN 6 mg/dL (8-23) L 04/30/25 04:37 Creatinine 0.4 mg/dL (0.7-1.2) L 04/30/25 04:37 GFR Calculation 215.2 mL/min (90-130) H 04/30/25 04:37 Glucose 86 mg/dL (65-115) 04/30/25 04:37 POC Glucose 124 mg/dL (70-110) H 04/30/25 11:05 Calculated Osmolality 283 mOsm/kg (285-295) L 04/30/25 04:37 Lactic Acid 3.6 mmol/L (0.5-2.2) H 04/26/25 09:45 Lactic Acid (Sepsis) 2.6 mmol/L (0.5-2.2) H 04/26/25 12:41 Calcium 7.9 mg/dL (8.5-10.5) L 04/30/25 04:37 Total Bilirubin 1.1 mg/dL (0.15-1.2) 04/30/25 04:37 AST 24 U/L (0-40) 04/30/25 04:37 ALT 12 U/L (0-41) 04/30/25 04:37 Alkaline Phosphatase 88 U/L (40-130) 04/30/25 04:37 Ammonia 50 umol/L (16-60) 04/29/25 05:12 Creatine Kinase 29 U/L (39-308) L 04/26/25 09:45 Troponin T Baseline < 6 ng/L (0-15) 04/26/25 09:45 Troponin T 120 Minute < 6.0 ng/L (0-15) 04/26/25 11:49 Delta Troponin T 0 ABS# (0-10) 04/26/25 11:49 Troponin T Hi Sens 6Hr < 6.0 ng/L (0-15) 04/26/25 15:48 Troponin T Hi Sens 6Hr Delta 0 ng/L (0-12) 04/26/25 15:48 C-Reactive Protein 35.6 mg/L (0.0-4.9) H 04/30/25 04:37 Total Protein 6.9 g/dL (6.6-8.7) 04/30/25 04:37 Albumin 2.4 g/dL (3.5-5.2) L 04/30/25 04:37 Globulin 4.5 g/dL (1.3-4.6) 04/30/25 04:37 Lipase 18 U/L (13-60) 04/26/25 09:45 Procalcitonin 0.05 ng/mL (0-0.5) 04/30/25 04:37 TSH 2.23 uIU/mL (0.27-4.20) 04/26/25 09:45 Urine Color Dark yellow (Yellow) A 04/26/25 10:42 Urine Appearance Cloudy (CLEAR) A 04/26/25 10:42 Urine pH 5.5 (5-7) 04/26/25 10:42 Ur Specific [place] 1.020 (1.005-1.030) 04/26/25 10:42 Urine Protein Trace (Negative) A 04/26/25 10:42 Urine Glucose (UA) Negative (Normal) 04/26/25 10:42 Urine Ketones Trace (Negative) 04/26/25 10:42 Urine Blood 1+ (Negative) A 04/26/25 10:42 Urine Nitrate Positive (Negative) A 04/26/25 10:42 Urine Bilirubin Negative (Negative) 04/26/25 10:42 Urine Urobilinogen 1.0 mg/dL (Negative) 04/26/25 10:42 Ur Leukocyte Esterase 3+ (Negative) A 04/26/25 10:42 Urine RBC 3-5 /hpf (0-2) 04/26/25 10:42 Urine WBC >100 /hpf (0-5) H 04/26/25 10:42 Ur Squamous Epith Cells 0-5 /hpf (0-5) 04/26/25 10:42 Amorphous Sediment Not Reportable 04/26/25 10:42 Urine Bacteria Exceeds /hpf (NONE) 04/26/25 10:42 Hyaline Casts 3.71 /lpf 04/26/25 10:42 Vitals Last Vital Signs Temp 98.2 F 04/30/25 11:59 Pulse 98 04/30/25 11:59 Resp 18 04/30/25 11:59 BP 92/64 04/30/25 11:59 Pulse Ox 97 04/30/25 11:59 O2 Del Method Room Air 04/30/25 11:59 Discharge Plan Discharge Patient Disposition: Xfer SNF Condition: Stable Prescriptions: New lactulose 10 gram/15 mL Solution 20 g PO BID 30 Days Qty: 1800 0RF Continued metformin 1,000 mg Tablet 1,000 mg PO BID gabapentin 100 mg Capsule 100 mg PO TID potassium chloride 10 mEq tablet extended release 10 meq PO BID temazepam 15 mg capsule 15 mg PO BEDTIME PRN (Reason: Sleep) ketoconazole 2 % shampoo See Rx Instructions .ROUTE .COMPLEX PRN (Reason: Skin Irritation) Rx Instructions: LATHER ONTO SCALP AND FACE 2-3 TIMES A WEEK. ALLOW TO SIT 5 MINUTES BEFORE RINSING. ketoconazole 2 % cream See Rx Instructions .ROUTE .COMPLEX PRN (Reason: Skin Irritation) Rx Instructions: APPLY TWICE DAILY TO RED SCALY AREAS ON FACE NEEDED. thiamine mononitrate (vit B1) [Vitamin B-1 (mononitrate)] 100 mg Tablet 100 mg PO DAILY Qty: 30 0RF acetaminophen [Tylenol] 325 mg Tablet 650 mg PO TID PRN (Reason: Pain) bisacodyl [Dulcolax (bisacodyl)] 10 mg Suppository 10 mg VT DAILY PRN (Reason: constipation ) bisacodyl [Dulcolax (bisacodyl)] 5 mg Tablet,Delayed Release (Dr/Ec) 10 mg PO DAILY PRN (Reason: constipation ) diclofenac sodium 1 % Gel 1 g TOPICAL TID Rx Instructions: apply to single elbow, wrist or hand; for hand includes palm/fingers/back of hand Discontinued acetaminophen 325 mg Tablet 650 mg PO Q6H PRN (Reason: Mild/Mod Pain Or Temp >/= 101) Qty: 30 0RF hydrocodone-acetaminophen 5-325 mg Tablet 1 tab PO Q8H PRN (Reason: Pain) hydrocodone-acetaminophen 5-325 mg Tablet 1 tab PO TID PRN (Reason: Pain) cephalexin 500 mg Capsule 500 mg PO TID No Action Thera-M 19 mg iron- 400 mcg Tablet 1 tab PO DAILY Discharge Orders: Discharge Order (Routine); Ordered 04/30/25 Ordered By: Andrew Amato Referrals: [facility] [Outside] Hernan Gutierrez MD [Referring, Internal Medicine] - 05/02/25 10:30 am Referral Note: liver cirrhosis/colon polyps Arnoldo Renee DO [Physician, Orthopedics] - 05/15/25 9:00 am Referral Note: right shoulder stifness Sanam Sosa DO [Primary Care Provider, Family Practice] Discharge Diet: Cardiac Discharge Activity: Resume usual activity Patient Instructions: Lactulose (By mouth), Cefdinir (By mouth), Urinary Tract Infection in Men (GEN), Altered Mental Status (ED), Opioid Safety Activity Restrictions/Additional Instructions: - Please use antibiotics as prescribed for UTI - Please seek lactulose for hyperammonemia - Please follow-up with GI in [place] for your liver cirrhosis -Please monitor your blood sugars closely -Monitor your blood sugars 3 times daily as after meals -Please record your blood sugars, and a blood sugar log -If your blood sugar is greater than 500 go to the emergency room -If your blood sugar is less than 60 or at anytime you feel lightheaded or dizzy or diaphoretic or have chest palpitations check your blood sugar, and eat a hard candy or drink orange juice and go immediately to the emergency room -Remember hypoglycemia kills, so if his blood sugar is less than 60 we have to increase it by taking in a sugary meal such as a hard candy or orange juice and go to the emergency room -If you have any questions please call us where here to help Discharge Attestations Time Spent in Discharge Care*: greater than 30 min Quality Metrics Clinical Quality Measures [ No reported AMI, CVA or VTE this stay] Coding Level of Care Code 33650 Total time (in minutes) for Discharge: 45 Diagnoses Complicated UTI (urinary tract infection) N39.0 Acute encephalopathy G93.40 Melena K92.1 Acute hepatic encephalopathy K76.82 Alcoholic cirrhosis K70.30 Generalized weakness R53.1
== END 2025-04-30 13:10 | disposition intermediate care facility (04) | DRG 689 ==
LOC: ER 12:24 → MEDSURG 12:53
PROVIDERS: Admitting Provider Internal Medicine; Emergency Provider Family Medicine; PCP Family Medicine; Visit Provider Family Medicine
DX: N39.0 Urinary tract infection, site not specified (principal); G93.41 Metabolic encephalopathy; K92.1 Melena; E72.20 Disorder of urea cycle metabolism, unspecified; M00.9 Pyogenic arthritis, unspecified; K76.82 Hepatic encephalopathy; K70.30 Alcoholic cirrhosis of liver without ascites; E11.9 Type 2 diabetes mellitus without complications; Z79.84 Long term (current) use of oral hypoglycemic drugs; E03.9 Hypothyroidism, unspecified; F17.200 Nicotine dependence, unspecified, uncomplicated; G47.00 Insomnia, unspecified
CPT/HCPCS: 36415; 36416; 70450; 71045; 73030; 73200; 73223; 76770; 80048; 80053; 81001; 82140; 82274; 82550; 82962; 83605; 83690; 84145; 84443; 84484; 85025; 85610; 85651; 85730; 86140; 87040; 87077; 87086; 87186; 93005; 93010; 96372; 96374; 97116; 97161; 97530; 99285; J0696; J1815; J7030; J9999

== ENCOUNTER 2025-04-30 13:55 | Inpatient (IN) | payer MEDICARE, SELFPAY ==
[2025-04-30 14:14] VITALS: O2SAT 98
[2025-04-30 14:17] VITALS: BP 112/64; PULSE 102; RESP 17; TEMP 36.6
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
[2025-04-30 15:24] VITALS: BP 112/64; PULSE 102; RESP 17; TEMP 36.6; O2SAT 98
[2025-04-30 16:10] VITALS: BP 112/64; PULSE 102; RESP 17; TEMP 36.6
[2025-04-30 16:47] LABS: Glucose Point of Care 127 mg/dL (70-110)
[2025-04-30] MEDS: lactulose oral liq 20 gm/30 mL UDC PO (17:44)
[2025-04-30] MEDS: enoxaparin 40 mg/0.4 mL Syringe SUBCUT (17:44)
[2025-04-30] MEDS: pantoprazole 40 mg SDV IVP (17:44)
[2025-04-30] MEDS: gabapentin 100 mg Capsule PO ×2 (17:45→20:53)
[2025-04-30 20:00] VITALS: BP 105/69; PULSE 65; RESP 16; TEMP 36.6; O2SAT 90
[2025-04-30 20:32] LABS: Glucose Point of Care 174 mg/dL (70-110)
[2025-04-30] MEDS: temazepam 15 mg Capsule PO (20:54)
[2025-04-30 21:58] LABS: Bilirubin Urine Negative (Negative); Blood Urine Negative (Negative); Glucose Urine UA 1+ (Normal); Ketones Urine Negative (Negative); Leukocyte Esterase Urine Negative (Negative); Nitrate Urine Negative (Negative); Protein Urine Negative (Negative); Specific Gravity, Urine 1.018 (1.005-1.030); Urine Appearance Clear (CLEAR); Urine Color Yellow (Yellow); pH Urine 6.5 (5-7)
[2025-04-30 22:00] VITALS: PULSE 97
[2025-04-30 22:03] LABS: Add Urine Microscopic? YES; Bacteria Urine None Seen /hpf; Hyaline Casts Urine 0-4 /lpf; RBC Urine 0-2 /hpf (0-2); Squamous Epithelial Cell Urine 0-5 /hpf (0-5); WBC Urine 0-5 /hpf (0-5)
[2025-05-01] VITALS (10 sets, daily range): BP systolic 91–112; BP diastolic 57–71; PULSE 92–97; RESP 16–18; TEMP 36.3–37; O2SAT 95–98
[2025-05-01 06:29] LABS: Basophils % 0.7 %; Eosinophils # 0.4 10^3/uL (0.0-0.8); Lymphocytes % 35.2 %; Mean Corpuscular HGB Conc 33.4 g/dL (30-55); Mean Corpuscular Hemoglobin 32.6 pg (27-33); Mean Corpuscular Volume 97.3 fl (82-101); Mean Platelet Volume 8.9 fL (7.4-10.4); Monocytes # 0.7 10^3/uL (0.2-0.9); Monocytes % 12.1 %; Neutrophils # 2.64 10^3/uL (1.8-7.7); Neutrophils % 45.7 %; Nucleated Red Blood Cells % 0 %; Platelet Count 177 10^3/cmm (157-399); Red Blood Count 2.98 10^6/uL (3.85-5.65); Red Cell Distribution Width 16.6 % (12.1-15.1); White Blood Count 5.79 10^3/uL (3.29-11.43)
[2025-05-01 06:33] LABS: Glucose Point of Care 84 mg/dL (70-110)
[2025-05-01 06:34] LABS: Erythrocyte Sedimentation Rate 52 mm/hr (0-10)
[2025-05-01 06:47] LABS: C Reactive Protein 31.2 mg/L (0.0-4.9)
[2025-05-01 06:48] LABS: Alanine Aminotransferase 10 U/L (0-41); Albumin Level 2.4 g/dL (3.5-5.2); Alkaline Phosphatase 85 U/L (40-130); Anion Gap 14.4 (5-19); Aspartate Amino Transferase 22 U/L (0-40); Blood Urea Nitrogen 6 mg/dL (8-23); Calcium 7.6 mg/dL (8.5-10.5); Carbon Dioxide 20 mmol/L (22-29); Chloride 107 mmol/L (98-107); Globulin 4.1 g/dL (1.3-4.6); Glomerular Filtration Rate 215.2 mL/min (90-130); Glucose 75 mg/dL (65-115); Osmolality Calculated 282 mOsm/kg (285-295); Potassium 3.4 mmol/L (3.5-5.1); Sodium 138 mmol/L (136-145); Total Bilirubin 0.9 mg/dL (0.15-1.2); Total Protein 6.5 g/dL (6.6-8.7)
[2025-05-01 06:55] LABS: Procalcitonin 0.05 ng/mL (0-0.5)
[2025-05-01] MEDS: lactulose oral liq 20 gm/30 mL UDC PO ×2 (09:16→17:21)
[2025-05-01] MEDS: gabapentin 100 mg Capsule PO ×3 (09:16→21:22)
[2025-05-01] MEDS: thiamine 100 mg Tablet PO (09:16)
[2025-05-01 12:00] LABS: Glucose Point of Care 145 mg/dL (70-110)
[2025-05-01] MEDS: insulin lispro 100 unit/1 mL SUBCUT (12:38)
[2025-05-01] MEDS: LORazepam 1 MG/0.5 ML injection IVP (14:28)
[2025-05-01] MEDS: HYDROmorphone 0.5 MG/0.5 ML INJ 2 MG IVP (14:34)
--- NOTE | 2025-05-01 14:48 | P.PN_ITS ---
Subjective 2 Subjective: Patient was seen this morning, no acute events overnight, no fevers, no chills, no cough Vitals/I&O/Wt Last Vital Signs Temp 97.9 F 05/01/25 12:38 Pulse 93 05/01/25 12:38 Resp 16 05/01/25 12:38 BP 91/57 05/01/25 12:38 Pulse Ox 97 05/01/25 11:58 O2 Del Method Room Air 05/01/25 11:58 04/30/25 05/01/25 05/01/25 22:59 06:59 14:59 Intake Total 240 / 240 840 / 840 Output Total 800 / 800 Balance -560 / -560 840 / 840 Weight last 48 hrs Weight 55.111 kg Weight 68.492 kg Physical Exam 2 Const: COMMON NORMALS: no acute distress and patient oriented x3 Resp: COMMON NORMALS: normal respiratory effort, No retractions, No use of accessory muscles and clear to auscultation bilaterally AUSCULTATION: clear to auscultation bilaterally Cardio: COMMON NORMALS: regular rate, regular rhythm, S1 normal heart sound present and S2 normal heart sound present RATE: regular rate RHYTHM: r egular rhythm HEART SOUNDS: S1 normal heart sound present and S2 normal heart sound present GI: COMMON NORMALS: Normal to inspection, nondistended, normoactive bowel sounds present and non-tender Extremity: COMMON NORMALS: no pedal edema NARRATIVE EXTREMITY EXAM: Right shoulder, no significant erythema, no swelling, no tenderness, does have decreased range of motion above 30 degree arc, no AC joint tenderness Neuro: COMMON NORMALS: patient oriented x3 Psych: COMMON NORMALS: mental status grossly normal Data 05/01/25 05:28 05/01/25 05:28 Micro: Microbiology 04/30/25 14:27 Blood Culture - Preliminary Blood NEGATIVE TO DATE 04/30/25 14:24 Blood Culture - Preliminary Blood NEGATIVE TO DATE A&P Assessment and plan (1) Septic arthritis: Plan MR/MR shoulder RT wo/w con [id number] IMPRESSION: 1. Regions of abnormal marrow signal intensity in the visualized humerus and in the glenoid are noted associated with areas of cortical indistinctness of the humeral head, greater tuberosity and posterosuperior glenoid. The MRI appearance is concerning for possible septic arthritis with osteomyelitis. Inflammatory arthropathy there is an additional consideration. A malignant etiology involving the marrow is less likely but not excluded. 2. Partial-thickness tearing of the supraspinatus tendon. 3. Large full-thickness subscapularis tendon tear. 4. Medial dislocation of the biceps tendon long head from the bicipital groove. 5. Mild infraspinatus tendinosis. 6. Tear of the posterosuperior labrum. 7. Multifocal regions of muscular edema are present, which can be related to strain. Myositis or neuropathic changes are not excluded. 8. Glenohumeral joint and acromioclavicular joint primary osteoarthritic changes. -No fevers, no overlying skin changes, no swelling/no erythema states shoulder pain has been going on for the last few weeks - Question of avascular necrosis versus osteomyelitis and/or septic arthritis versus osteoarthritis versus inflammatory arthropathy Plan - Continue PT OT - Oxycodone for pain control - Lovenox for DVT prophylaxis - Type 2 diabetes mellitus, low-dose sliding scale - Continue gabapentin - Sed rate 55, CRP 31.2, Pro-Arias 0.05 - Follow blood cultures - Consulted IR for bone biopsy, will try to obtain a bone culture -Will consult orthopedic service based on clinical progress -Hold off on IV antibiotics as there is a question of AVN versus osteomyelitis, until after biopsy/culture is done -Will discuss with orthopedic service based on clinical progress - Full code PDMP PDMP Reviewed: Not Reviewed Attestations 2 Medical Necessity Statement*: Patient requires hospitalization for concerns for septic arthritis versus avascular necrosis Diagnoses Septic arthritis M00.9
--- NOTE | 2025-05-01 15:11 | PC.NURSE ---
Patients blood pressure a little soft. Dr. Malhotra aware and stated to give 2mg Dilauded and 1mg ativan.
[2025-05-01] MEDS: cefTRIAXone 1,000 mg SDV 1000 MG IVP (15:41)
[2025-05-01] MEDS: pantoprazole 40 mg SDV IVP (15:41)
--- NOTE | 2025-05-01 15:54 | US_ITS ---
WS: [id number] Ultrasound-guided RIGHT shoulder humeral head biopsy and joint aspiration INDICATION: Osteomyelitis TECHNIQUE: The procedure including risks, benefits, and complications were discussed with the patient who agreed to proceed. Using sterile technique patient was prepped and draped in usual sterile fashion. After 1% lidocaine, using ultrasound guidance, 2 core bone samples were obtained from the RIGHT h umeral head using an osteocyte coaxial biopsy kit. Bone was soft and presumably necrotic. Bloody fluid was also aspirated from around the humeral head and joint. No immediate complications. Fluid and core bone samples sent for requested diagnostic test / biopsy bone superfic IMPRESSION: Uncomplicated core biopsy and joint aspiration. Pathology and cultu res are pending
[2025-05-01 16:42] LABS: Glucose Point of Care 123 mg/dL (70-110)
[2025-05-01] MEDS: vancomycin 1,500 MG/300 ML PIGGYBACK 200 MG IV (17:20)
[2025-05-01 20:47] LABS: Glucose Point of Care 172 mg/dL (70-110)
[2025-05-01] MEDS: temazepam 15 mg Capsule PO (21:22)
[2025-05-02] VITALS (11 sets, daily range): BP systolic 91–112; BP diastolic 57–70; PULSE 87–102; RESP 16–18; TEMP 36.6–37.1; O2SAT 93–97
[2025-05-02] MEDS: VANCOMYCIN ADD-Vantage 750 MG in 0.9% NaCl ADD-Vantage 250 ML 250 MG IV ×2 (03:50→16:21)
[2025-05-02 06:30] LABS: Glucose Point of Care 88 mg/dL (70-110)
[2025-05-02] MEDS: gabapentin 100 mg Capsule PO ×3 (08:22→20:20)
[2025-05-02] MEDS: thiamine 100 mg Tablet PO (08:22)
[2025-05-02] MEDS: oxyCODONE 5 mg IR Tab/Cap PO ×2 (08:25→20:23)
[2025-05-02 11:15] LABS: Glucose Point of Care 140 mg/dL (70-110)
--- NOTE | 2025-05-02 13:19 | PHA.VACGOAL ---
Vancomycin Goal - Goal Vancomycin Goal:: 15-20 mg/L Vancomycin Indication:: Other - Therapy Day of therpy:: Day []of [] . Actual body weight (kg): 150 lb - Data Labs: WBC 5.79 10^3/uL (3.29-11.43) 05/01/25 05:28 RBC 2.98 10^6/uL (3.85-5.65) L 05/01/25 05:28 Hgb 9.70 g/dL (11.27-16.99) L 05/01/25 05:28 Hct 29.0 % (37-53) L 05/01/25 05:28 MCV 97.3 fl (82-101) 05/01/25 05:28 MCH 32.6 pg (27-33) 05/01/25 05:28 MCHC 33.4 g/dL (30-55) 05/01/25 05:28 RDW 16.6 % (12.1-15.1) H 05/01/25 05:28 Sodium 138 mmol/L (136-145) 05/01/25 05:28 Potassium 3.4 mmol/L (3.5-5.1) L 05/01/25 05:28 Chloride 107 mmol/L (98-107) 05/01/25 05:28 Carbon Dioxide 20 mmol/L (22-29) L 05/01/25 05:28 Anion Gap 14.4 (5-19) 05/01/25 05:28 BUN 6 mg/dL (8-23) L 05/01/25 05:28 Creatinine 0.4 mg/dL (0.7-1.2) L 05/01/25 05:28 GFR Calculation 215.2 mL/min (90-130) H 05/01/25 05:28 Treatment plan:: new consult Regimen:: 750 mg q12h
--- NOTE | 2025-05-02 13:53 | PC.NURSE ---
Nurse notified Dr. Amato that patient's blood pressure was 95/61 he is to receive 1 mg of Ativan and 2mg Dilaudid. Dr. Amato said it is okay to give.
[2025-05-02] MEDS: HYDROmorphone 0.5 MG/0.5 ML INJ 2 MG IVP (13:56)
[2025-05-02] MEDS: cefTRIAXone 1,000 mg SDV 1000 MG IVP (14:24)
[2025-05-02] MEDS: pantoprazole 40 mg SDV IVP (14:25)
--- NOTE | 2025-05-02 15:00 | P.PN_ITS ---
Subjective 2 Subjective: Patient was seen this morning, alert oriented x 3, following all commands, - We discussed his biopsy of his right s [place],, he has tolerated the procedure well, no bleeding, does have chronic pain but no sudden worsening, discussed with him that the biopsy yesterday unfortunately did not include tissue culture which will need to aid in her diagnosis of osteomyelitis - Discussed that we will need tissue cul ture/Gram stain/anaerobic culture, discussed risk and benefits of shoulder joint aspiration, shared decision making, he voiced understanding, agreed to proceed Vitals/I&O/Wt Last Vital Signs Temp 98.2 F 05/02/25 11:30 Pulse 90 05/02/25 14:39 Resp 16 05/02/25 14:35 BP 98/62 05/02/25 14:35 Pulse Ox 93 05/02/25 14:35 O2 Del Method Room Air 05/02/25 14:35 05/02/25 05/02/25 05/02/25 06:59 14:59 22:59 Intake Total 250 / 2110 1160 / 1160 Balance 250 / 2110 1160 / 1160 Weight last 48 hrs Weight 68.039 kg Weight 55.111 kg Physical Exam 2 Const: COMMON NORMALS: no acute distress and patient oriented x3 Resp: COMMON NORMALS: normal respiratory effort, No retractions, No use of accessory muscles and clear to auscultation bilaterally AUSCULTATION: clear to auscultation bilaterally Cardio: COMMON NORMALS: regular rate, regular rhythm, S1 normal heart sound present and S2 normal heart sound present RATE: regular rate RHYTHM: r egular rhythm HEART SOUNDS: S1 normal heart sound present and S2 normal heart sound present GI: COMMON NORMALS: Normal to inspection, nondistended, normoactive bowel sounds present and non-tender Extremity: COMMON NORMALS: no pedal edema Neuro: COMMON NORMALS: patient oriented x3 Psych: COMMON NORMALS: mental status grossly normal Data 05/01/25 05:28 05/01/25 05:28 Micro: Microbiology 04/30/25 14:27 Blood Culture - Preliminary Blood NEGATIVE TO DATE 04/30/25 14:24 Blood Culture - Preliminary Blood NEGATIVE TO DATE A&P Assessment and plan (1) Septic arthritis: Plan MR/MR shoulder RT wo/w con [id number] IMPRESSION: 1. Regions of abnormal marrow signal intensity in the visualized humerus and in the glenoid are noted associated with areas of cortical indistinctness of the humeral head, greater tuberosity and posterosuperior glenoid. The MRI appearance is concerning for possible septic arthritis with osteomyelitis. Inflammatory arthropathy there is an additional consideration. A malignant etiology involving the marrow is less likely but not excluded. 2. Partial-thickness tearing of the supraspinatus tendon. 3. Large full-thickness subscapularis tendon tear. 4. Medial dislocation of the biceps tendon long head from the bicipital groove. 5. Mild infraspinatus tendinosis. 6. Tear of the posterosuperior labrum. 7. Multifocal regions of muscular edema are present, which can be related to strain. Myositis or neuropathic changes are not excluded. 8. Glenohumeral joint and acromioclavicular joint primary osteoarthritic changes. -No fevers, no overlying skin changes, no swelling/no erythema states shoulder pain has been going on for the last few weeks - Question of avascular necrosis versus osteomyelitis and/or septic arthritis versus osteoarthritis versus inflammatory arthropathy - Status post biopsy Plan - Continue PT OT - Oxycodone for pain control - Lovenox for DVT prophylaxis - Type 2 diabetes mellitus, low-dose sliding scale - Continue gabapentin - Sed rate 55, CRP 31.2, Pro-Arias 0.05 - Follow blood cultures so far negative - Follow bone biopsy - follow-up tissue culture -Will consult orthopedic service based on clinical progress - Has been started on IV Rocephin -Has been started on IV vancomycin -Will discuss with orthopedic service based on clinical progress - Full code PDMP PDMP Reviewed: Not Reviewed Attestations 2 Medical Necessity Statement*: Patient requires hospitalization for concerns for septic arthritis versus osteomyelitis versus AVN Diagnoses Septic arthritis M00.9
[2025-05-02 16:35] LABS: Glucose Point of Care 127 mg/dL (70-110)
[2025-05-02] MEDS: lactulose oral liq 20 gm/30 mL UDC PO (17:06)
[2025-05-02 17:44] LABS: Appearance Synovial Fluid BLOODY (CLEAR); Color Synovial Fluid RED (PALE YELLOW); Cyto Order Verification No Order; PATH Referal YES
[2025-05-02 17:54] LABS: RBC Synovial Fluid 1432 10^3/uL (0-0); Synovial Fluid Mononuclear # 0.298 10^3/uL; Synovial Fluid Polynuclear # 0.492 10^3/uL; WBC Synovial Fluid 790 /uL (0-150)
[2025-05-02 20:43] LABS: Glucose Point of Care 139 mg/dL (70-110)
[2025-05-03] VITALS (8 sets, daily range): BP systolic 93–113; BP diastolic 54–69; PULSE 52–101; RESP 16–18; TEMP 36.6–37.1; O2SAT 93–97
[2025-05-03] MEDS: VANCOMYCIN ADD-Vantage 750 MG in 0.9% NaCl ADD-Vantage 250 ML 250 MG IV (03:03)
[2025-05-03 06:36] LABS: Basophils % 0.8 %; Eosinophils # 0.3 10^3/uL (0.0-0.8); Eosinophils % 5.2 %; Hematocrit 28.2 % (37-53); Lymphocytes # 1.7 10^3/uL (0.8-4.8); Lymphocytes % 35.7 %; Mean Corpuscular HGB Conc 31.9 g/dL (30-55); Mean Corpuscular Hemoglobin 31.6 pg (27-33); Mean Corpuscular Volume 98.9 fl (82-101); Mean Platelet Volume 9.2 fL (7.4-10.4); Monocytes # 0.5 10^3/uL (0.2-0.9); Monocytes % 10.9 %; Neutrophils # 2.26 10^3/uL (1.8-7.7); Neutrophils % 47.2 %; Nucleated Red Blood Cells % 0 %; Platelet Count 129 10^3/cmm (157-399); Red Blood Count 2.85 10^6/uL (3.85-5.65); Red Cell Distribution Width 16.8 % (12.1-15.1); White Blood Count 4.79 10^3/uL (3.29-11.43)
[2025-05-03 06:47] LABS: Glucose Point of Care 99 mg/dL (70-110)
[2025-05-03 07:06] LABS: Anion Gap 11.8 (5-19); Blood Urea Nitrogen 9 mg/dL (8-23); Calcium 7.6 mg/dL (8.5-10.5); Carbon Dioxide 22 mmol/L (22-29); Chloride 107 mmol/L (98-107); Creatinine Clr Calc Pharmacy 91.2353; Glomerular Filtration Rate 215.2 mL/min (90-130); Glucose 89 mg/dL (65-115); Osmolality Calculated 282 mOsm/kg (285-295); Potassium 3.8 mmol/L (3.5-5.1); Sodium 137 mmol/L (136-145)
[2025-05-03] MEDS: gabapentin 100 mg Capsule PO ×3 (08:02→20:36)
[2025-05-03] MEDS: thiamine 100 mg Tablet PO (08:02)
[2025-05-03 11:11] LABS: Glucose Point of Care 101 mg/dL (70-110)
--- NOTE | 2025-05-03 12:58 | PC.SOCIAL ---
IMM Update pg 2 of IMM updated and reviewed w/ patient. Copy provided and copy dated, initialed and placed in chart.
[2025-05-03] MEDS: enoxaparin 40 mg/0.4 mL Syringe SUBCUT (14:31)
[2025-05-03] MEDS: cefTRIAXone 1,000 mg SDV 1000 MG IVP (14:31)
[2025-05-03] MEDS: pantoprazole 40 mg SDV IVP (14:31)
--- NOTE | 2025-05-03 15:41 | PM.CONSULT ---
Providers/Reason For Consult Consulting Physician/Specialty*: Arnoldo Renee DO/orthopedic surgery Reason for Consult*: Right shoulder pain/osteonecrosis versus septic arthritis/osteomyelitis Requesting Physician: Dr. Amato Attending Physician: Andrew Amato MD Primary Care Provider: Sanam Sosa DO History of Present Illness History of Present Illness Bernardino Jackson is a 64 year old male who has multiple medical comorbidities. Patient was stabilized secondary to likely UTI. During his hospitalization he did complain of shoulder pain sounds as though he had had more of an injury with this 3 weeks ago per the patient's history state he had fallen onto his right shoulder. Workup demonstrated an x-ray and then a CT scan that had degenerative lytic appearing changes concerning for possible osteonecrosis versus osteomyelitis/septic arthritis subsequently underwent an MRI which had possible concerning findings for septic arthritis/osteomyelitis as a result patient was continued on admission and workup. Patient had recently underwent an IR core biopsy of the humeral head as well as a joint aspiration fluid cell count Gram stain and aerobic cultures. Orthopedics was consulted for evaluation treatment recommendations of the right shoulder pain. 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 He states it has been sometime since has been able to fully forward flex or AB duct to shoulder but he has noticed much more pain in this here lately. Today he states it has continued to have significant improvement throughout the week during his hospitalization and ultimately patient's not wanting to do anything surgical if possible particularly does not want any type of joint replacement type procedure. Please refer to previous HPI the patient was admitted on 04/26/2025 listed below: Bernardino Jackson is a 64 year old male patient, a [place] [facility] resident with a history of type 2 diabetes mellitus, hypothyroidism, insomnia, chronic smoking, alcohol-induced liver cirrhosis, and prior prostate cancer (status post prostatectomy), presenting with acute altered mental status. The patient was brought in from the [place] [facility] due to confusion and was found to have acute encephalopathy. The patient was unable to provide history on arrival. Family reports recurrent episodes of confusion, sometimes associated with urinary tract infections (UTIs) and a history of black stools and prior GI bleeding. In the emergency department, the patient was afebrile, with urinalysis suggestive of UTI (positive for nitrites, >100 WBCs, 3+ leukocyte esterase, 3-5 RBCs, excess bacteria). There were reports of blood in the stool, but this was not observed in the ED. Hemoglobin was 11.4, platelets 178, INR mildly elevated at 1.26, and ammonia elevated at 154. T-bilirubin was mildly elevated at 1.4, with normal AST, ALT, and ALP. Head CT showed no acute intracranial findings. Chest X-ray showed incidental atherosclerosis. EKG showed sinus rhythm at 102 bpm. The patient denied pain, headache, nausea, vomiting, abdominal discomfort, or breathing difficulties during the encounter. Family reports prior colonoscopy with polyp removal and recurrent UTIs, including a previous E. coli infection. The patient has not taken iron since the 6th. There is a guardian (son) who is not present. The patient expressed a wish not to have CPR if a dire event occurs. Review of Systems General: Reports: 10 or more systems reviewed and unremarkable except in HPI and below Medications/Allergies Home Medications ?Medication ?Instructions ?Recorded ?Confirmed ?Last Taken ?Type metformin 1,000 mg tablet 1,000 mg PO BID 11/18/19 04/30/25 04/25/25 19:10 History gabapentin 100 mg capsule 100 mg PO TID 02/12/23 04/30/25 04/25/25 06:30 History potassium chloride 10 mEq 10 meq PO BID 09/15/23 04/30/25 04/25/25 19:10 History tablet,extended release temazepam 15 mg capsule 15 mg PO BEDTIME PRN Sleep 09/15/23 04/30/25 04/22/25 20:00 History ketoconazole 2 % shampoo See Rx Instructions .Route 02/28/25 04/30/25 04/19/25 09:05 History .COMPLEX PRN Skin Irritation ketoconazole 2 % topical cream See Rx Instructions .Route 02/28/25 04/30/25 Unknown History .COMPLEX PRN Skin Irritation thiamine mononitrate (vit B1) 100 100 mg PO DAILY #30 tabs 03/13/25 04/30/25 04/25/25 06:30 Rx mg tablet (Vitamin B-1 (mononitrate)) acetaminophen 325 mg tablet 650 mg PO TID PRN Pain 04/26/25 04/30/25 04/25/25 19:10 History (Tylenol) bisacodyl 10 mg rectal suppository 10 mg NM DAILY PRN constipation 04/26/25 04/30/25 Unknown History (Dulcolax (bisacodyl)) bisacodyl 5 mg tablet,delayed 10 mg PO DAILY PRN constipation 04/26/25 04/30/25 Unknown History release (Dulcolax (bisacodyl)) diclofenac sodium 1 % topical gel 1 g topical TID 04/26/25 04/30/25 04/26/25 07:10 History cefdinir 300 mg capsule 300 mg PO BID 5 days #10 caps 04/29/25 04/30/25 Unknown Rx lactulose 10 gram/15 mL oral 20 g (30 mL) PO BID 30 days #1,800 04/29/25 04/30/25 Unknown Rx solution mL hydrocodone 5 mg-acetaminophen 325 1 tab PO Q8H PRN Pain 7 days #21 04/30/25 04/30/25 Unknown Rx mg tablet tabs nsekesctvole-ebygofra-dxan 1 tab PO DAILY 04/30/25 04/30/25 04/25/25 06:30 History fumarate 19 mg-folic acid 400 mcg tablet (Thera-M) prednisone 20 mg tablet 20 mg PO BID 5 days #10 tabs 04/30/25 04/30/25 Unknown Rx Allergies Allergy/AdvReac Type Severity Reaction Status Date / Time No Known Allergies Allergy Verified 02/27/25 23:41 Current Medications Generic Name Dose Route Start Last Admin Trade Name Freq PRN Reason Stop Dose Admin Ceftriaxone Sodium 1,000 mg 05/01/25 15:00 05/03/25 14:31 Ceftriaxone 1,000 Mg Sdv IVP 1,000 mg Q24H TERRENCE Administration Protocol Enoxaparin Sodium 40 mg 04/30/25 14:15 05/03/25 14:31 Enoxaparin 40 Mg/0.4 Ml Syringe SUBCUT 40 mg Q24H TERRENCE Administration Gabapentin 100 mg 04/30/25 15:00 05/03/25 14:31 Gabapentin 100 Mg Capsule PO 100 mg TID TERRENCE Administration Vancomycin HCl 750 mg/ Sodium 250 mls @ 250 mls/hr 05/02/25 04:00 05/03/25 04:10 Chloride IV Infused Q12H TERRENCE Infusion Insulin Human Lispro 0 unit 04/30/25 18:00 05/03/25 11:11 Insulin Lispro 100 Unit/1 Ml SUBCUT Not Given TIDWM TERRENCE Protocol Lactulose 20 gm 04/30/25 18:00 05/03/25 08:02 Lactulose Oral Liq 20 Gm/30 Ml Udc PO Not Given BID TERRENCE Pantoprazole Sodium 40 mg 04/30/25 14:15 05/03/25 14:31 Pantoprazole 40 Mg Sdv IVP 40 mg Q24H TERRENCE Administration Temazepam 15 mg 04/30/25 14:05 05/01/25 21:22 Temazepam 15 Mg Capsule PO 15 mg BEDTIME PRN Administration SLEEP Thiamine Mononitrate 100 mg 05/01/25 09:00 05/03/25 08:02 Thiamine 100 Mg Tablet PO 100 mg DAILY TERRENCE Administration PFSH Acute PFSH: Medical History History of colon polyps Prostate cancer Liver cirrhosis Insomnia Type 2 diabetes mellitus Hypothyroidism Surgical History H/O prostatectomy History of esophagogastroduodenoscopy Family History Mother Diabetes mellitus, type 2 Social History Smoking and tobacco/nicotine status: current every day tobacco/nicotine user Alcohol intake: former Substance/Drug Use: unknown Vitals/I&O/Wt Last Vital Signs Temp 98.3 F 05/03/25 15:29 Pulse 80 05/03/25 15:29 Resp 17 05/03/25 15:29 BP 102/65 05/03/25 15:29 Pulse Ox 97 05/03/25 15:29 O2 Del Method Room Air 05/03/25 15:29 05/03/25 05/03/25 05/03/25 06:59 14:59 22:59 Intake Total 610 / 2860 Balance 610 / 2860 Weight last 48 hrs Weight 150 lb Weight 150 lb Physical Exam Narrative: Examination of the right shoulder: Examination of right shoulder demonstrates patient has a dressing on in place from previous core biopsy as well as joint aspiration by IR. This was then subsequently lifted and patient has no signs of erythema redness or palpable fluctuance nor warmth to the shoulder. Patient is able to forward flex to roughly 90 degrees with pain on end range. He is able to tolerate micromotion of the shoulder with no pain or discomfort patient does have some appreciable weakness with rotator cuff testing. His axillary nerve motor and sensory is intact. Able to flex and extend at the elbow with no issues or discomfort as well as able to wiggle fingers and make a fist. No palpable fluctuance or excessive swelling appreciated about the right shoulder. Data 05/04/25 06:22 05/04/25 05:23 Other Labs: AM labs 05/03/2025 listed below: WBC 4.79, hemoglobin 9.0 creatinine 0.4 05/01/2025: ESR 52, CRP 31.2 [id number] LOC: [facility] #: [id number] AGE/SX: 64/M ROOM: [facility] RE04/30/[address]: Andrew Amato MD : 1960 BED: 1 DIS: FAX #: STATUS: ADM IN TLOC: Spec : [id number] Cathy: 05/02/25-1439 Status: COMP Req : [id number] Recd: 05/02/25-[address]: Andrew Amato MD Ordered: SYN Analysis Test Low Normal High Flag Reference Site Syn Color RED PALE YELLOW Syn Appear BLOODY CLEAR Syn WBC 790 H 0-150 /uL Syn RBC 1432 H 0-0 10^3/uL SYN [facility] % 37.700 % SYN Poly % 62.300 % SYN [facility]# 0.298 10^3/uL SYN Poly # 0.492 10^3/uL PATH YES Patient's core biopsy is currently pending Patient's blood cultures have been negative Cultures no growth to date but currently pending negative Gram stain at this time. Micro: Microbiology 05/01/25 07:53 Gram Stain - Final Bone Tissue Culture - Preliminary Xray Ortho: Radiologist's impression: Ordering Provider/Ordering MD: Andrew Amato MD Date of Service: 04/29/25 Procedure(s): XR shoulder RT min 2V* [id number] Accession Number(s): [id number] Report Number: [id number] WS: [id number] Exam: XR shoulder RT min 2V* [id number] Date/Time of Exam: 04/29/2025 10:39 AM Reason For Exam: pain, decrease rom Comparison 02/28/2025. There appears to be some cortical erosion along the lateral aspect of the humeral head. No obvious acute fracture. Degenerative changes of the glenohumeral joint and the AC joint. Recommendations: CT or MRI of the shoulder could be helpful for further work-up if thought to be clinically warranted. XR/XR shoulder RT min 2V* [id number] IMPRESSION: 1. New loss of bony cortex along the lateral aspect of the humeral head. This could be due to fracture or bone destruction. 2. Moderate degenerative changes. Ordering Provider/Ordering MD: Andrew Amato MD Date of Service: 04/29/25 Procedure(s): CT shoulder RT wo con* [id number] Accession Number(s): [id number] Report Number: [id number] WS: [id number] CT RIGHT SHOULDER, NONCONTRAST HISTORY: right shoulder pain Technique: All CT scans at [facility] use at least one of these dose optimization techniques: automated exposure control; mA and/or kV adjustment per patient size (includes targeted exams where dose is matched to clinical indication); or iterative reconstruction. DLP: 249.02 mGy.cm COMPARISON: Radiograph 04/29/2025 Significantly abnormal appearance of the RIGHT shoulder. Loss of the normal trabecular pattern and cortex involving the superior lateral RIGHT humeral head. There is loss of the normal cortex with loss of bone structure. Changes within the bone extend to the medial humeral head. Loss of the normal cortex. Loss of the normal cortex involving the inferior glenoid. Bones are diffusely osteopenic. There is an avulsion from fracture from the inferior glenoid. Small spicules of bone in the glenohumeral joint. The remaining trabecular pattern appears appropriate. There is significant soft tissue synovial thickening surrounding the humeral head and glenoid. This does not appear to be a simple joint effusion. Paraseptal emphysema. Small nonpathologic RIGHT axillary lymph nodes. CT/CT shoulder RT wo con* [id number] IMPRESSION: 1. Abnormal RIGHT shoulder. Loss of the normal cortex involving portions of the RIGHT humeral head and the glenoid. Lytic changes in the humeral head and glenoid. 2. Pathological versus posttraumatic fracture from the inferior glenoid. 3. Marked diffuse synovial thickening RIGHT shoulder joint versus complex fluid. 4. RIGHT shoulder joint infection with developing osteomyelitis should be considered. Lucencies with loss of normal cortex and bone fragmentation at the shoulder joint. Recommend MRI evaluation of the RIGHT shoulder with and without contrast to evaluate for osteomyelitis/synovitis and marrow edema. Within the differential but thought less likely are metastatic bone disease or fractures related to recent trauma. Patient: Bernardino Jackson Unit #: [id number] : 1960 Age/Sex: 64 / M ADM Date: 04/26/25 Loc: [facility] Room/Bed: [facility] Attending Dr: Andrew Amato MD Ordering Provider/Ordering MD: Andrew Amato MD Date of Service: 04/30/25 Procedure(s): MR shoulder RT wo/w con [id number] Accession Number(s): [id number] Report Number: [id number] PROCEDURE INFORMATION: Exam: MR Right Upper Extremity Joint Without and With Contrast; Shoulder Exam date and time: 04/30/2025 10:15 AM Age: 64 years old Clinical indication: Pain and abnormal findings; Abnormal imaging study of the limbs; CT shoulder; Abnormal CT: Abnormal right shoulder. Loss of the normal cortex involving portions of the right humeral head and the glenoid. Lytic changes in the humeral head and glenoid. ; Additional info: Right shoulder pain TECHNIQUE: Imaging protocol: Magnetic resonance imaging of the right upper extremity without and with contrast. Exam focused on the shoulder. Contrast material: MULTIHANCE; Contrast volume: 10 ml; Contrast route: INTRAVENOUS (IV); COMPARISON: CT shoulder RT wo con* [id number] 04/29/2025 2:48 PM FINDINGS: Limitations: Motion artifact. Bones/joints: Mild superior subluxation of the humeral head within the glenoid fossa is noted. No dislocation. Mild osteophyte formation of the glenohumeral joint and acromioclavicular joint is present. Multifocal regions of abnormal moderate patchy abnormal marrow signal intensity throughout the humeral head, humeral metaphysis, visualized humeral shaft and glenoid is noted, characterized by hyperintensity on the fluid sensitive sequences with corresponding moderate enhancing T1 hypointensity. Indistinctness of the cortex portions of the superolateral aspect of the humeral head and greater tuberosity and portions of the posterosuperior glenoid are similar to the prior CT. Fhizrvey-ij-azsiua thinning of the articular cartilage of the mid to superior glenoid and inferior medial humeral head is identified. Small glenohumeral joint effusion with evidence of mild synovial proliferation. Glenoid labrum: A tear of the posterosuperior labrum from the 9 to 12 o'clock position is noted. Supraspinatus tendon: Moderate abnormal increased signal intensity within the supraspinatus tendon is present. Marked thinning of the tendon fibers is noted consistent with partial-thickness bursal surface and undersurface tearing. No definite full-thickness tear. Infraspinatus tendon: Mild abnormal increased signal intensity within the infraspinatus tendon is identified. Subscapularis tendon: A large full-thickness subscapularis tendon tear is noted, with a small number of intact inferior fibers. Teres minor tendon: Unremarkable. No evidence of tear. Tendon of biceps brachii: Medial dislocation of the biceps tendon long head from the bicipital groove is present. Glenohumeral ligaments: Unremarkable. Soft tissues: Diffuse moderate muscular edema is noted. MR/MR shoulder RT wo/w con [id number] IMPRESSION: 1. Regions of abnormal marrow signal intensity in the visualized humerus and in the glenoid are noted associated with areas of cortical indistinctness of the humeral head, greater tuberosity and posterosuperior glenoid. The MRI appearance is concerning for possible septic arthritis with osteomyelitis. Inflammatory arthropathy there is an additional consideration. A malignant etiology involving the marrow is less likely but not excluded. 2. Partial-thickness tearing of the supraspinatus tendon. 3. Large full-thickness subscapularis tendon tear. 4. Medial dislocation of the biceps tendon long head from the bicipital groove. 5. Mild infraspinatus tendinosis. 6. Tear of the posterosuperior labrum. 7. Multifocal regions of muscular edema are present, which can be related to strain. Myositis or neuropathic changes are not excluded. 8. Glenohumeral joint and acromioclavicular joint primary osteoarthritic changes. A&P Assessment and plan (1) Right shoulder pain: (2) Rotator cuff tear, right: (3) Osteonecrosis of right head of humerus: Plan Labs reviewed Imaging reviewed Recommend pain control per primary PT/OT Recommend sling as needed for comfort Continue to follow cultures No acute orthopedic surgical intervention recommendation at this time Orthopedic surgery team will sign off patient at this time follow peripherally if there is any question pertaining to patient's care feel free to contact orthopedics on-call or if any change in patient's cultures feel free to contact orthopedics on-call. Patient understands and agrees with current plan. Questions answered. Patient can follow-up in the outpatient setting for right shoulder pain MDM: Patient is a 64-year-old male who [place] [facility] resident with alcohol induced liver cirrhosis who was originally admitted for UTI is treated for this was complaining of some shoulder pain workup revealed lytic and destructive changes of the humeral head further work I concerning for possible osteomyelitis/septic arthritis as a result patient underwent core biopsy as well as joint aspiration per interventional radiology orthopedics was asked to evaluate patient for the right shoulder pain as well as to guide treatment recommendations pertained the right shoulder. At this point in time talked about with patient he had a fall 3 weeks ago that seemed to spur on his right shoulder pain been worsening however he states on my evaluation of him today he is actually been noticing this is getting better now. From a clinical standpoint he does not appear to be septic he has no white count. He is able to tolerate micromotion of the shoulder as well as actively move this to 90 degrees. There is no clinical signs of erythema or redness or swelling or warmth about the shoulder. Review of his joint aspiration demonstrates this appears to be noninfectious in nature as he only had 700 WBCs which in the tolowa dee-ni' shoulder would expect this to be criteria is over 50,000. I explained this with him in detail as well as his PMNs were in the 60% and normally an infectious nature this would be in 90% given these numerous laboratory findings as well as his clinical examination story this to me does not appear to be an acutely infectious septic arthritis and I suspect this to be more of an osteonecrosis of the humeral head now with a more full clinical picture currently his cultures are still pending which will continue to be available if need be I talked about his treatment options in detail obviously in the setting of this being a septic arthritis we talked about you could potentially wash this out however given his findings and his improvement he is already made I do not feel as though this would be necessary unless cultures do come back as possibly positive. As far as if this is osteomyelitis of the humeral head. Recommendation at that point would be for IV antibiotics which we will defer to the primary team pertaining to this. If this comes down to just his MRI showing rotator cuff tear as well as degenerative changes of the glenohumeral joint and osteonecrosis of the head obviously discussed we can work this up in an outpatient setting. He expressed at this point in time he would like to hold off on any big orthopedic surgical procedure pertained any type of joint replacement. At this point in time he is stable from an orthopedic standpoint continue sling as needed okay to work on gentle passive range of motion as patient can tolerate would recommend he hold off on any weightbearing exercises to the right upper extremity at this time and have him just focus on some gentle range of motion. He can follow-up in the orthopedic office in 2 weeks upon discharge. Orthopedic surgery team will sign off and follow peripherally if there is any question pertaining to patient's care or any change in his clinical picture or positive cultures orthopedics can be contacted and will be available if needed. Patient understands and agrees with current plan. All questions answered. I discussed case in detail with Dr. Amato?hospitalist understands and agrees with plan as well. PDMP PDMP Reviewed: Not Reviewed Coding Level of Care Code Acute Code for Chg Fwd Diagnoses Right shoulder pain M25.511 Rotator cuff tear, right M75.101 Osteonecrosis of right head of humerus M87.9 Time Spent (min) 60
[2025-05-03 15:58] LABS: Vancomycin Trough 6.3 ug/mL (10-15)
[2025-05-03] MEDS: vancomycin 1,250 MG/250 ML PIGGYBACK 166.67 MG IV (16:32)
[2025-05-03 16:37] LABS: Glucose Point of Care 117 mg/dL (70-110)
[2025-05-03] MEDS: lactulose oral liq 20 gm/30 mL UDC PO (17:48)
--- NOTE | 2025-05-03 17:49 | P.PN_ITS ---
Subjective 2 Subjective: Patient was seen this morning, currently alert oriented x 3, following all commands, denies any fevers, chills, no cough does have right shoulder pain but the oxycodone is helping, no pain in his hand, pain is primarily in his shoulder, Vitals/I&O/Wt Last Vital Signs Temp 98.3 F 05/03/25 15:29 Pulse 80 05/03/25 15:29 Resp 17 05/03/25 15:29 BP 102/65 05/03/25 15:29 Pulse Ox 97 05/03/25 15:29 O2 Del Method Room Air 05/03/25 15:29 05/03/25 05/03/25 05/03/25 06:59 14:59 22:59 Intake Total 610 / 2860 240 / 240 Balance 610 / 2860 240 / 240 Weight last 48 hrs Weight 68.039 kg Weight 68.039 kg Physical Exam 2 Const: COMMON NORMALS: no acute distress and patient oriented x3 Resp: COMMON NORMALS: normal respiratory effort, No retractions, No use of accessory muscles and clear to auscultation bilaterally AUSCULTATION: clear to auscultation bilaterally Cardio: COMMON NORMALS: regular rate, regular rhythm, S1 normal heart sound present and S2 normal heart sound present RATE: regular rate RHYTHM: r egular rhythm HEART SOUNDS: S1 normal heart sound present and S2 normal heart sound present GI: COMMON NORMALS: Normal to inspection, nondistended, normoactive bowel sounds present and non-tender Extremity: COMMON NORMALS: no pedal edema NARRATIVE EXTREMITY EXAM: Right shoulder, pressure bandage applied on top - Has good radial ulnar pulses, good cap illary fill, no pain in his hand, pain primarily in the shoulder, - His range of motion is limited to abou t 30 degrees - Pain with internal/external rotation Neuro: COMMON NORMALS: patient oriented x3 Psych: COMMON NORMALS: mental status grossly normal Data 05/03/25 05:39 05/03/25 05:39 Micro: Microbiology 05/02/25 14:30 Anaerobic Culture - Preliminary Shoulder - Aspirate 05/01/25 07:53 Gram Stain - Final Bone Tissue Culture - Preliminary A&P Assessment and plan (1) Septic arthritis: Plan MR/MR shoulder RT wo/w con [id number] IMPRESSION: 1. Regions of abnormal marrow signal intensity in the visualized humerus and in the glenoid are noted associated with areas of cortical indistinctness of the humeral head, greater tuberosity and posterosuperior glenoid. The MRI appearance is concerning for possible septic arthritis with osteomyelitis. Inflammatory arthropathy there is an additional consideration. A malignant etiology involving the marrow is less likely but not excluded. 2. Partial-thickness tearing of the supraspinatus tendon. 3. Large full-thickness subscapularis tendon tear. 4. Medial dislocation of the biceps tendon long head from the bicipital groove. 5. Mild infraspinatus tendinosis. 6. Tear of the posterosuperior labrum. 7. Multifocal regions of muscular edema are present, which can be related to strain. Myositis or neuropathic changes are not excluded. 8. Glenohumeral joint and acromioclavicular joint primary osteoarthritic changes. -No fevers, no overlying skin changes, no swelling/no erythema states shoulder pain has been going on for the last few weeks - Question of avascular necrosis versus osteomyelitis and/or septic arthritis versus osteoarthritis versus inflammatory arthropathy - Status post biopsy currently pending -Status post arthrocentesis, red, bloody, 790 white blood cells, 1432 red blood cells - Gram stain rare white blood cells, no organisms - Culture no growth at 18 to 24 hours Plan - Continue PT OT - Oxycodone for pain control - Lovenox for DVT prophylaxis - Type 2 diabetes mellitus, low-dose sliding scale - Continue gabapentin - Sed rate 55, CRP 31.2, Pro-Arias 0.05 - Follow blood cultures so far negative - Follow bone biopsy - follow-up tissue culture, so far no growth - Consult orthopedic service - Has been started on IV Rocephin -Has been started on IV vancomycin - Continue to monitor closely - Full code PDMP PDMP Reviewed: Not Reviewed Attestations 2 Medical Necessity Statement*: Patient requires hospitalization for concern for septic arthritis Diagnoses Septic arthritis M00.9
[2025-05-03 21:16] LABS: Glucose Point of Care 136 mg/dL (70-110)
[2025-05-03] MEDS: temazepam 15 mg Capsule PO (23:10)
[2025-05-04] VITALS (13 sets, daily range): BP systolic 95–125; BP diastolic 60–91; PULSE 75–97; RESP 16–18; TEMP 36.4–37.2; O2SAT 94–97
[2025-05-04] MEDS: vancomycin 1,250 MG/250 ML PIGGYBACK 250 MG IV (04:19)
[2025-05-04 06:33] LABS: Basophils % 0.9 %; Eosinophils # 0.3 10^3/uL (0.0-0.8); Eosinophils % 5.4 %; Hematocrit 31.3 % (37-53); Lymphocytes % 43.6 %; Mean Corpuscular HGB Conc 32.3 g/dL (30-55); Mean Corpuscular Hemoglobin 31.5 pg (27-33); Mean Corpuscular Volume 97.5 fl (82-101); Mean Platelet Volume 8.5 fL (7.4-10.4); Monocytes # 0.4 10^3/uL (0.2-0.9); Monocytes % 9.2 %; Neutrophils % 40.7 %; Nucleated Red Blood Cells % 0 %; Platelet Count 171 10^3/cmm (157-399); Red Blood Count 3.21 10^6/uL (3.85-5.65); Red Cell Distribution Width 16.3 % (12.1-15.1); White Blood Count 4.66 10^3/uL (3.29-11.43)
[2025-05-04 06:33] LABS: Anion Gap 14.7 (5-19); Blood Urea Nitrogen 8 mg/dL (8-23); Calcium 7.7 mg/dL (8.5-10.5); Carbon Dioxide 20 mmol/L (22-29); Chloride 107 mmol/L (98-107); Creatinine Clr Calc Pharmacy 91.2353; Glomerular Filtration Rate 215.2 mL/min (90-130); Glucose 77 mg/dL (65-115); Osmolality Calculated 283 mOsm/kg (285-295); Potassium 3.7 mmol/L (3.5-5.1); Sodium 138 mmol/L (136-145)
[2025-05-04 07:09] LABS: Glucose Point of Care 87 mg/dL (70-110)
[2025-05-04] MEDS: thiamine 100 mg Tablet PO (09:18)
[2025-05-04] MEDS: gabapentin 100 mg Capsule PO ×3 (09:18→21:15)
[2025-05-04] MEDS: lactulose oral liq 20 gm/30 mL UDC PO ×2 (09:18→18:06)
[2025-05-04 11:26] LABS: Glucose Point of Care 108 mg/dL (70-110)
--- NOTE | 2025-05-04 15:31 | P.PN_ITS ---
Subjective 2 Subjective: Patient was seen this morning, denies any fevers, chills, cough, right shoulder pain has significantly improved, has some mobility of his right arm Vitals/I&O/Wt Last Vital Signs Temp 98.2 F 05/04/25 12:25 Pulse 85 05/04/25 12:25 Resp 16 05/04/25 12:25 BP 104/68 05/04/25 12:25 Pulse Ox 95 05/04/25 11:31 O2 Del Method Room Air 05/04/25 11:31 05/04/25 05/04/25 05/04/25 06:59 14:59 22:59 Intake Total 610 / 1340 1160 / 1160 Balance 610 / 1340 1160 / 1160 Weight last 48 hrs Weight 68.039 kg Weight 68.039 kg Physical Exam 2 Const: COMMON NORMALS: no acute distress and patient oriented x3 Resp: COMMON NORMALS: normal respiratory effort, No retractions, No use of accessory muscles and clear to auscultation bilaterally AUSCULTATION: clear to auscultation bilaterally Cardio: COMMON NORMALS: regular rate, regular rhythm, S1 normal heart sound present and S2 normal heart sound present RATE: regular rate RHYTHM: r egular rhythm HEART SOUNDS: S1 normal heart sound present and S2 normal heart sound present GI: COMMON NORMALS: Normal to inspection, nondistended, normoactive bowel sounds present and non-tender Extremity: COMMON NORMALS: no pedal edema NARRATIVE EXTREMITY EXAM: Right shoulder, Pressure bandage on top Radial ulnar pulses present Neuro: COMMON NORMALS: patient oriented x3 Psych: COMMON NORMALS: mental status grossly normal Data 05/04/25 06:22 05/04/25 05:23 Micro: Microbiology 05/02/25 14:30 Anaerobic Culture - Preliminary Shoulder - Aspirate 05/01/25 07:53 Gram Stain - Final Bone Tissue Culture - Preliminary A&P Assessment and plan (1) Septic arthritis: Plan MR/MR shoulder RT wo/w con [id number] IMPRESSION: 1. Regions of abnormal marrow signal intensity in the visualized humerus and in the glenoid are noted associated with areas of cortical indistinctness of the humeral head, greater tuberosity and posterosuperior glenoid. The MRI appearance is concerning for possible septic arthritis with osteomyelitis. Inflammatory arthropathy there is an additional consideration. A malignant etiology involving the marrow is less likely but not excluded. 2. Partial-thickness tearing of the supraspinatus tendon. 3. Large full-thickness subscapularis tendon tear. 4. Medial dislocation of the biceps tendon long head from the bicipital groove. 5. Mild infraspinatus tendinosis. 6. Tear of the posterosuperior labrum. 7. Multifocal regions of muscular edema are present, which can be related to strain. Myositis or neuropathic changes are not excluded. 8. Glenohumeral joint and acromioclavicular joint primary osteoarthritic changes. -No fevers, no overlying skin changes, no swelling/no erythema states shoulder pain has been going on for the last few weeks - Question of avascular necrosis versus osteomyelitis and/or septic arthritis versus osteoarthritis versus inflammatory arthropathy - Status post biopsy currently pending -Status post arthrocentesis, red, bloody, 790 white blood cells, 1432 red blood cells - Gram stain rare white blood cells, no organisms - Culture no growth at 18 to 24 hours - Anaerobic culture so far no growth Plan - Continue PT OT - Oxycodone for pain control - Lovenox for DVT prophylaxis - Type 2 diabetes mellitus, low-dose sliding scale - Continue gabapentin - Sed rate 55, CRP 31.2, Pro-Arias 0.05 - Follow blood cultures so far negative - Follow bone biopsy - follow-up tissue culture, so far no growth - Consult orthopedic service - Has been started on IV Rocephin -Has been started on IV vancomycin - Continue to monitor closely - Full code PDMP PDMP Reviewed: Not Reviewed Attestations 2 Medical Necessity Statement*: Patient requires hospitalization for septic arthritis versus osteomyelitis versus avascular necrosis Diagnoses Septic arthritis M00.9
[2025-05-04 16:31] LABS: Glucose Point of Care 195 mg/dL (70-110)
[2025-05-04] MEDS: enoxaparin 40 mg/0.4 mL Syringe SUBCUT (16:32)
[2025-05-04] MEDS: pantoprazole 40 mg SDV IVP (16:32)
[2025-05-04] MEDS: vancomycin 1,250 MG/250 ML PIGGYBACK 167 MG IV (16:33)
[2025-05-04] MEDS: cefTRIAXone 1,000 mg SDV 1000 MG IVP (16:33)
[2025-05-04] MEDS: insulin lispro 100 unit/1 mL SUBCUT (18:05)
--- NOTE | 2025-05-04 19:21 | PC.NURSE ---
Ask Charge to see if we could get a sling for patient. Not kept on floor.
[2025-05-04 20:05] LABS: Glucose Point of Care 154 mg/dL (70-110)
[2025-05-04] MEDS: temazepam 15 mg Capsule PO (21:15)
[2025-05-05] VITALS (9 sets, daily range): BP systolic 101–106; BP diastolic 62–68; PULSE 86–100; RESP 13–19; TEMP 36.7–37.3; O2SAT 94–97
[2025-05-05 04:02] LABS: Basophils % 0.9 %; Eosinophils # 0.2 10^3/uL (0.0-0.8); Hematocrit 30.8 % (37-53); Lymphocytes # 1.6 10^3/uL (0.8-4.8); Lymphocytes % 35.3 %; Mean Corpuscular HGB Conc 32.5 g/dL (30-55); Mean Corpuscular Hemoglobin 31.1 pg (27-33); Mean Corpuscular Volume 95.7 fl (82-101); Mean Platelet Volume 8.6 fL (7.4-10.4); Monocytes # 0.5 10^3/uL (0.2-0.9); Monocytes % 11.8 %; Neutrophils # 2.15 10^3/uL (1.8-7.7); Neutrophils % 46.8 %; Nucleated Red Blood Cells % 0 %; Platelet Count 176 10^3/cmm (157-399); Red Blood Count 3.22 10^6/uL (3.85-5.65); White Blood Count 4.59 10^3/uL (3.29-11.43)
[2025-05-05 04:19] LABS: Anion Gap 12.5 (5-19); Blood Urea Nitrogen 8 mg/dL (8-23); Calcium 8.1 mg/dL (8.5-10.5); Carbon Dioxide 22 mmol/L (22-29); Chloride 109 mmol/L (98-107); Creatinine Clr Calc Pharmacy 91.2353; Glomerular Filtration Rate 166.4 mL/min (90-130); Glucose 100 mg/dL (65-115); Osmolality Calculated 288 mOsm/kg (285-295); Potassium 3.5 mmol/L (3.5-5.1); Sodium 140 mmol/L (136-145)
[2025-05-05 04:20] LABS: Vancomycin Trough 11.8 ug/mL (10-15)
[2025-05-05] MEDS: vancomycin 1,250 MG/250 ML PIGGYBACK 250 MG IV (04:39)
[2025-05-05 06:54] LABS: Glucose Point of Care 81 mg/dL (70-110)
[2025-05-05] MEDS: oxyCODONE 5 mg IR Tab/Cap PO (08:04)
[2025-05-05] MEDS: lactulose oral liq 20 gm/30 mL UDC PO ×2 (08:04→17:31)
[2025-05-05] MEDS: gabapentin 100 mg Capsule PO ×3 (08:04→21:51)
[2025-05-05] MEDS: thiamine 100 mg Tablet PO (08:04)
[2025-05-05 11:21] LABS: Glucose Point of Care 148 mg/dL (70-110)
[2025-05-05] MEDS: insulin lispro 100 unit/1 mL SUBCUT ×2 (11:48→17:31)
--- NOTE | 2025-05-05 13:32 | P.PN_ITS ---
Subjective 2 Subjective: Patient was seen this morning, afebrile overnight, no nausea, no vomiting, no chest pain, right shoulder pain is improving, mobility improving, discussed with patient, no significant evidence of septic arthritis, cultures so far negative, the question is does he have osteomyelitis? Of right humeral head, will await biopsy results, but as per discussion with orthopedic service likely avascular necrosis Vitals/I&O/Wt Last Vital Signs Temp 98.2 F 05/05/25 11:30 Pulse 86 05/05/25 11:30 Resp 19 H 05/05/25 11:30 BP 104/64 05/05/25 11:30 Pulse Ox 96 05/05/25 11:30 O2 Del Method Room Air 05/05/25 11:30 05/04/25 05/05/25 05/05/25 22:59 06:59 14:59 Intake Total 970 / 2130 550 / 2680 720 / 720 Balance 970 / 2130 550 / 2680 720 / 720 Weight last 48 hrs Weight 68.039 kg Weight 68.039 kg Physical Exam 2 Const: COMMON NORMALS: no acute distress and patient oriented x3 Resp: COMMON NORMALS: normal respiratory effort, No retractions, No use of accessory muscles and clear to auscultation bilaterally AUSCULTATION: clear to auscultation bilaterally Cardio: COMMON NORMALS: regular rate, regular rhythm, S1 normal heart sound present and S2 normal heart sound present RATE: regular rate RHYTHM: r egular rhythm HEART SOUNDS: S1 normal heart sound present and S2 normal heart sound present GI: COMMON NORMALS: Normal to inspection, nondistended, normoactive bowel sounds present and non-tender Extremity: COMMON NORMALS: no pedal edema NARRATIVE EXTREMITY EXAM: Radial pulses present, cap refill present right hand Neuro: COMMON NORMALS: patient oriented x3 Psych: COMMON NORMALS: mental status grossly normal Data 05/05/25 03:50 05/05/25 03:50 Micro: Microbiology 05/01/25 07:53 Gram Stain - Final Bone Tissue Culture - Final 05/02/25 14:30 Anaerobic Culture - Preliminary Shoulder - Aspirate A&P Assessment and plan (1) Septic arthritis: Plan MR/MR shoulder RT wo/w con [id number] IMPRESSION: 1. Regions of abnormal marrow signal intensity in the visualized humerus and in the glenoid are noted associated with areas of cortical indistinctness of the humeral head, greater tuberosity and posterosuperior glenoid. The MRI appearance is concerning for possible septic arthritis with osteomyelitis. Inflammatory arthropathy there is an additional consideration. A malignant etiology involving the marrow is less likely but not excluded. 2. Partial-thickness tearing of the supraspinatus tendon. 3. Large full-thickness subscapularis tendon tear. 4. Medial dislocation of the biceps tendon long head from the bicipital groove. 5. Mild infraspinatus tendinosis. 6. Tear of the posterosuperior labrum. 7. Multifocal regions of muscular edema are present, which can be related to strain. Myositis or neuropathic changes are not excluded. 8. Glenohumeral joint and acromioclavicular joint primary osteoarthritic changes. -No fevers, no overlying skin changes, no swelling/no erythema states shoulder pain has been going on for the last few weeks - Question of avascular necrosis versus osteomyelitis and/or septic arthritis versus osteoarthritis versus inflammatory arthropathy - Status post biopsy currently pending -Status post arthrocentesis, red, bloody, 790 white blood cells, 1432 red blood cells - Gram stain rare white blood cells, no organisms - Culture no growth at 18 to 24 hours - Anaerobic culture so far no growth - Currently no significant evidence of septic arthritis -Question of osteomyelitis of right humeral head? Biopsy pending -Versus avascular necrosis Plan - Continue PT OT - Oxycodone for pain control - Lovenox for DVT prophylaxis - Type 2 diabetes mellitus, low-dose sliding scale - Continue gabapentin - Sed rate 55, CRP 31.2, Pro-Arias 0.05 - Follow blood cultures so far negative - Follow bone biopsy - follow-up tissue culture, so far no growth - Consult orthopedic service - IV Rocephin - IV vancomycin - Continue to monitor closely - Full code PDMP PDMP Reviewed: Not Reviewed Attestations 2 Medical Necessity Statement*: Patient requires hospitalization for humeral head osteomyelitis versus avascular necrosis Diagnoses Septic arthritis M00.9
[2025-05-05] MEDS: cefTRIAXone 1,000 mg SDV 1000 MG IVP (14:13)
[2025-05-05] MEDS: enoxaparin 40 mg/0.4 mL Syringe SUBCUT (14:13)
[2025-05-05] MEDS: VANCOMYCIN ADD-Vantage 1,000 MG in 0.9% NaCl ADD-Vantage 250 ML 250 MG IV ×2 (14:13→21:51)
[2025-05-05] MEDS: pantoprazole 40 mg SDV IVP (14:14)
[2025-05-05 16:51] LABS: Glucose Point of Care 154 mg/dL (70-110)
[2025-05-05 21:00] LABS: Glucose Point of Care 143 mg/dL (70-110)
[2025-05-05] MEDS: temazepam 15 mg Capsule PO (21:51)
[2025-05-06 00:17] VITALS: BP 102/64; PULSE 98; RESP 18; TEMP 37; O2SAT 97
[2025-05-06 04:13] VITALS: BP 104/66; PULSE 76; RESP 18; TEMP 36.9; O2SAT 97
[2025-05-06 06:30] VITALS: PULSE 88
[2025-05-06 06:37] LABS: Glucose Point of Care 98 mg/dL (70-110)
[2025-05-06] MEDS: VANCOMYCIN ADD-Vantage 1,000 MG in 0.9% NaCl ADD-Vantage 250 ML 250 MG IV (06:58)
[2025-05-06 07:05] VITALS: BP 102/65; PULSE 88; RESP 19; TEMP 36.7; O2SAT 95
--- NOTE | 2025-05-06 08:10 | PC.SOCIAL ---
IMM Update Pg. 2 of IMM Updated and reviewed with patient, who verbalized understanding. Copy provided at bedside.
[2025-05-06 11:03] VITALS: BP 97/64; PULSE 90; RESP 19; TEMP 36.7; O2SAT 98
[2025-05-06 11:03] LABS: Glucose Point of Care 144 mg/dL (70-110)
[2025-05-06 11:10] VITALS: RESP 19; O2SAT 98
[2025-05-06] MEDS: gabapentin 100 mg Capsule PO (11:10)
[2025-05-06] MEDS: oxyCODONE 5 mg IR Tab/Cap PO (11:10)
[2025-05-06] MEDS: thiamine 100 mg Tablet PO (11:10)
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
[2025-05-06] MEDS: vancomycin 1,250 MG/250 ML PIGGYBACK 166.67 MG IV (13:07)
== END 2025-05-06 14:55 | disposition skilled nursing facility (03) | DRG 689 ==
PROVIDERS: Admitting Provider Family Medicine; PCP Family Medicine; Visit Provider Family Medicine
DX: N39.0 Urinary tract infection, site not specified (principal); G93.41 Metabolic encephalopathy; M87.9 Osteonecrosis, unspecified; F10.21 Alcohol dependence, in remission; K70.30 Alcoholic cirrhosis of liver without ascites; Z87.440 Personal history of urinary (tract) infections; E11.9 Type 2 diabetes mellitus without complications; Z79.84 Long term (current) use of oral hypoglycemic drugs; Z91.81 History of falling; Z85.46 Personal history of malignant neoplasm of prostate; G47.00 Insomnia, unspecified; E03.9 Hypothyroidism, unspecified; Z90.79 Acquired absence of other genital organ(s); F17.210 Nicotine dependence, cigarettes, uncomplicated; G89.29 Other chronic pain; Z79.891 Long term (current) use of opiate analgesic; M75.101 Unspecified rotator cuff tear or rupture of right shoulder, not specified as traumatic
CPT/HCPCS: 20220; 36415; 36416; 76942; 80048; 80053; 80202; 80503; 81001; 82962; 84145; 85025; 85651; 86140; 87040; 87070; 87075; 87176; 87205; 88307; 88311; 89050; 94664; 96372; 97110; 97161; 97167; 97535; J0696; J1171; J1650; J1815; J2060; J2470; J3370; J7050; J9999

== ENCOUNTER → 2025-05-15 09:13 | Outpatient (BNVA) | payer MEDICARE, SELFPAY | PROVIDERS: PCP Internal Medicine; Visit Provider Student in an Organized Health Care Education/Training Program | DX: M87.321 Other secondary osteonecrosis, right humerus (principal); M75.101 Unspecified rotator cuff tear or rupture of right shoulder, not specified as traumatic | CPT/HCPCS: 73030; 99214 ==

== ENCOUNTER 2025-05-28 10:05 | Emergency (ER) | payer MEDICARE, SELFPAY ==
[2025-05-28 10:06] VITALS: BP 127/77; PULSE 113; RESP 20; TEMP 37; O2SAT 96; BMI 26.6
[2025-05-28 10:16] VITALS: BP 127/77; PULSE 113; RESP 20; TEMP 37; O2SAT 96
--- NOTE | 2025-05-28 10:16 | XR_ITS ---
WS: [id number] PORTABLE CHEST HISTORY: dyspnea/cough COMPARISON: 04/26/2025 Hyperexpanded lungs. Chronic emphysema. No pneumonia. Normal vasculature. No pleural effusion or pneumothorax. Cardiac size: Normal. Mediastinum/Aorta: Normal mediastinum. No fracture with healing distal LEFT clavicle. Healed LEFT posterior rib fractures. XR/XR chest 1V portable [id number] IMPRESSION: Chronic emphysema. No pneumonia.
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
--- OUTSIDE RECORDS SUMMARY | 2025-05-28 10:18 | XMS_ITS | Encounter Summary ---
Author Organization [facility] Address [address] [place] [address] Care Team Providers Care Truss Designer Name Role Phone Sanam Sosa DO Primary Care Provider Reason for Referral * Outpatient Services (Routine) - Closed Specialty Diagnoses / Procedures Referred By Wes david Referred To Contact Diagnoses Thoracic or lumbosacral neuritis or radiculitis, unspecified Procedures XR FLUORO NEEDLE GUIDANCE Poncho Ferrer MD NO ADDRESS ON FILE Referral ID Status Reason Start Date Expiration Date Visits Re quested Visits Authorized [id number] Closed 05/15/2013 06/15/2014 1 1 Encounter Details Date Type Department Care Team (Late st Contact Info) Description 05/15/2013 Ancillary Orders [facility] Pain Management Procedures [place] [address] [place] [id number] Poncho Ferrer MD NO ADDRESS ON FILE Thoracic or lumbosacral neuritis or radiculitis, unspecified (Primary Dx) Social History Tobacco Use Types Packs/Day Years Used Date Smoking Tobacco: Every Day Cigarettes Smokeless Tobacco: Never Alcohol Use Standard Drinks/Week Comments No 0 (1 standard drink = 0.6 oz pur e alcohol) Sex and Gender Information Value Date Recorded Sex Assigned at Not on file Legal 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 Exam was auto-finalized. Procedure Note Griselda Raymond, RT - 05/15/2013 Order information only. Exam was auto-finalized. us Poncho Ferrer MD DIAGNOSTIC IMAGING ORDERAB LES Final Result documented in this encounter Visit Diagnoses Diagnosis Thoracic or lumbosacral neuritis or radiculitis, unspecified- Primary Thoracic or lumbosacral neuritis or radiculitis, unspecified documented in this encounter Additional Health Concerns Infection Onset Date Last Indicated Resolved Time MRSA Comment:Boogie 10/23/16 RESOLVED 10/25/2016 10/25/2016 10/24/20 17 3:59 PM PRODUCTION TEAM ADVISOR documented as of this encounter Care Teams Truss Designer Relationship Specialty Start Date End Date Sanam Sosa DO [address] [place] [address] PCP - General Family Practice 11/23/10 documented as of this encounter
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
--- OUTSIDE RECORDS SUMMARY | 2025-05-28 10:18 | XMS_ITS | Clinical Summary ---
Author Organization 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 30 Tablet 5 8 Active pantoprazole (PROTONIX) 40 mg Tablet, Delayed Release (E.C.) Take 1 Tablet (40 mg) by mouth daily. 30 Tablet 5 8 Active cyanocobalamin 1,000 mcg Tablet Take 1 Tablet (1,000 mcg) by mouth daily. 30 Tablet 5 8 Active triamcinolone acetonide (KENALOG) 0.1 % Cream Apply 1 Gram to affected area 3 times daily. 80 Gram 3 8 Active sennosides (SENOKOT) 8.6 mg tablet Take 1 Tablet (8.6 mg) by mouth 2 times daily. 8 Active folic acid (FOLVITE) 1 mg tablet Take 1 Tablet (1 mg) by mouth daily. 30 Tablet 5 8 Active metFORMIN (GLUCOPHAGE) 1,000 mg tablet Take 1 Tablet (1,000 mg) by mouth 2 times daily with meals. 180 Tablet 4 8 Active diclofenac sodium (VOLTAREN) 1 % gel Apply 2-4 Grams to affected area 4 times daily as needed for Pain. 100 Gram 6 8 Active carBAMazepine (CARBATROL) 200 mg Extended Release 12 hour capsule Take 1 Capsule (200 mg) by mouth 2 times daily. 60 Capsule 6 8 Active albuterol HFA 90 mcg inhalerIndication s:Acute exacerbation of chronic obstructive pulmonary disease (COPD) (CMS/HCC) Take 2 Puffs by inhalation every 6 hours as needed for Shortness of Breath. 18 Gram 6 9 Active triamcinolone acetonide (KENALOG) 0.1 % OintmentIndicatio ns:Plaque psoriasis Apply to affected area 2 times daily. 80 Gram 6 9 Active OLANZapine (ZyPREXA) 15 mg tablet 0 Active simvastatin (ZOCOR) 20 mg tablet 0 Active budesonide-formot Lindsey (SYMBICORT) 160-4.5 mcg/actuation HFA Aerosol InhalerIndication s:Chronic obstructive pulmonary disease, unspecified COPD type (CMS/HCC) Take 1 Puff by inhalation 2 times daily. 60 Gram 0 Active oxyCODONE (ROXICODONE) 5 mg tabletIndications :Chronic bilateral low back pain with bilateral sciatica Take two tabs before breakfast, 1 tab at lunch, 1 at supper, and 1 at bedtime. 150 Tablet 1 Active oxyCODONE (ROXICODONE) 5 mg tabletIndications :Chronic bilateral low back pain with bilateral sciatica Take two tabs before breakfast, 1 tab at lunch, 1 at supper, and 1 at bedtime. Do not fill until 12/14/2019 150 Tablet 1 Active oxyCODONE (ROXICODONE) 5 mg tabletIndications :Chronic bilateral low back pain with bilateral sciatica TAKE TWO TABLETS BY MOUTH BEFORE breakfast, ONE tablet AT LUNCH, ONE tablet AT supper,and ONE tablet AT BEDTIME 150 Tablet 1 Active eszopiclone (LUNESTA) 3 mg TabletIndications :Chronic bilateral low back pain with bilateral sciatica TAKE ONE TABLET BY MOUTH AT BEDTIME 30 Tablet 2 1 Active Active Problems Problem Noted Date Diagnosed Date Type 2 diabetes mellitus wit hout complication, without long-term current use of insulin 10/14/2018 Bipolar disorder, in full re mission, most recent episode manic 10/14/2018 Mixed hyperlipidemia 10/14/2018 MRSA colonization 10/23/2016 Spinal stenosis, lumbosacral region 01/04/2016 Chronic bilateral low back pain with bilateral s ciatica 01/04/2016 Generalized anxiety disorder 03/05/2014 Alcoholism /alcohol abuse 02/12/2014 Tobacco abuse disorder 02/09/2014 Gastroesophageal reflux disease without esophagi tis Primary insomnia Resolved Problems Problem Noted Date Diagnosed Date Resolved Date Acute gastrointestinal hemorrhage 10/21/2017 11/01/2017 Alcoholic hepatitis 10/21/2017 08/23/20 18 Thrombocytopenia 10/21/2017 11/01/2017 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 10/21/2017 11/29/2017 Elevated LFTs 10/28/2016 08/23/2018 Alcohol withdrawal 10/23/2016 8 Alcohol abuse, daily use 10/23/2016 Major depression 03/05/2014 05/11/2016 Alcohol-induced mood disorder 02/11/2014 03/05/2014 Gastritis 02/10/2014 03/05/2014 Leukocytosis 02/09/2014 03/05/2014 Alcohol intoxication in active alcoholic 02/09/2014 03/05/2014 Suicidal intent 02/09/2014 03/05/2014 Severe depression 02/09/2014 03/05/2014 S/P repair of ventral hernia 08/20/2011 08/23/2018 Other ventral hernia without mention of obstruction or gangrene 06/29/2011 03/05/2014 Alcohol withdrawal syndrome, with delirium 11/01/2017 Duodenal ulcer disease 08/23 Immunizations Immunization Administration Dates Next Due (PNEUMOVAX 23)(50 YRS UP) PN EUMOCOCCAL POLYSACCHARIDE (PPV23) 0.5 ML, IM 11/01/2017() INFLUENZA VACCINE QUADRIVALENT 3 YR UP PF IM ,11/01/2017() Family History Medical History Relation Name Comments Stroke Father Diabetes Maternal Grandfather Diabetes Mother Heart Attack Mother Relation Name Status Comments Father (Age 82) Maternal Grandfather Mother (Age 78) Social History Tobacco Use Types Packs/Day Years Used Date Smoking Tobacco: Former Cigarettes Q uit: 06/10/2017 Smokeless Tobacco: Never Tobacco Cessation:Ready to Q uit: No; Counseling Given: Yes Alcohol Use Standard Drinks/Week Comments Yes 0 (1 standard drink = 0.6 oz pur e alcohol) gallon a week of vodka Sex and Gender Information Value Date Recorded Sex Assigned at Not on file 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 Gender Identity Not on file Sexual Orientation Not on file Occupation Industry Job Start Date Job End Date Not on file Not on file Not on file Not on file Last Filed Vital Signs Vital Sign Reading Time Taken Comments Blood Pressure 136/82 11/13/2020 4:43 PM ELECTRICAL TECH Pulse 101 11/13/2020 4:43 PM ELECTRICAL TECH Temperature 36.6 C (97.8 F) 11/13/2020 4:43 PM ELECTRICAL TECH Respiratory Rate 18 11/13/2020 4:43 PM ELECTRICAL TECH Oxygen Saturation 94% 11/13/2020 4:43 PM ELECTRICAL TECH Inhaled Oxygen Concentration - - Weight 106.1 kg (234 lb) 11/13/2020 4:43 PM ELECTRICAL TECH Height 177.8 cm (5' 10 ) 11/13/2020 4:43 PM ELECTRICAL TECH Body Mass Index 33.58 11/13/2020 4:43 PM ELECTRICAL TECH Plan of Treatment Health Maintenance Due Date Last Done Comments DIABETES ANNUAL FOOT EXAM 1976 DIABETES ANNUAL RETINAL EXAM 1976 DTAP/TDAP/TD VACCINES (1 - Tdap) 1977 PNEUMOCOCCAL VACCINE 50+ YEA RS (1 of 2 - PCV) 1977 FIT-DNA Q 3 years 2003 FIT/FOBT Q 1 year 2003 Flex Sig/CT Colonography Q 5 years 2003 ZOSTER VACCINE (1 of 2) 2008 RSV VACCINE (60+ or ) (1 - Risk 60-74 years 1-dose series) 2018 DIABETES MICROALBUMIN ANNUAL SCREEN 08/02/2020 08/02/2019 DIABETES HBA1C Q 6 MONTHS 09/01/20212020, 08/21/2018, 06/26/2018 LDL CHOLESTEROL ANNUAL 03/02/2022 , 06/21/2019, 08/21/2018, Additional history exists Preventative Visit- Commercial 11/07/2024 01/07/2012 INFLUENZA VACCINE (#1) 2025 08/02/2019, 2017 COLORECTAL SCREENING 10/26/2032 10/26/2022 Colorectal Cancer Screening 10/26/2032 Procedures Procedure Name Priority Date/Time Associated Diagnosis Comments LIPID PANEL Routine 03/02/2021 8:22 AM CDT Type 2 diabetes mellitus without complication, without long-term current use of insulin ([facility]) HEMOGLOBIN A1C Routine 03/02/2021 8:22 AM CDT Type 2 diabetes mellitus without complication, without long-term current use of insulin ([facility]) MICROALBUMIN/CREATIN INE RATIO, RANDOM UR Routine 08/02/2019 11:27 AM CDT from Last 3 Months or Most Recently Relevant to Health Maintenance Results * (ABNORMAL) HEMOGLOBIN A1C (03/02/2021 8:22 AM CDT) HEMOGLOBIN A1C 6.5(H) See Comment % 03/02/2021 9:11 PM CDT [facility] EST. AVG GLUCOSE, A1C 140 mg/dL 03/02/2021 9:11 PM CDT [facility] Blood Venipuncture / Unknown 03/02/2021 8:22 AM CDT 03/02/2021 8:46 PM CDT Narrative [facility] - 03/02/2021 9:11 PM CDT HGB A1C INTERPRETATION NORMAL: <5.7% PRE-DIABETES: 5.7 - 6.4% DIABETES: 6.5% OR GREATER Falsely low A1C measurements can occur when: 1. Anemia and/or hemolytic anemia is present. 2. Hemoglobin variants present. 3. Renal failure. 4. Transfusion of blood product in the last 120 days. We recommend ordering a fructosamine test([id number]) to more accurately assess glycemic status if any of the above conditions are present. us Sanam Sosa DO CHEMISTRY ORDERABLES Final Result [facility] CLIA# [id number] [facility] [place] [address] * (ABNORMAL) LIPID PANEL (03/02/2021 8:22 AM CDT) CHOLESTEROL 176 <200 mg/dL 03/02/2021 9:33 PM CDT [facility] TRIGLYCERIDE 177(H) <150 mg/dL 03/02/2021 9:33 PM CDT [facility] HDL 48 40 - 59 mg/dL 03/02/2021 9:33 PM CDT [facility] LDL CALCULATED 93 <100 mg/dL 03/02/2021 9:33 PM CDT [facility] NON-HDL CHOLESTEROL 128 <130 mg/dL 03/02/2021 9:33 PM CDT [facility] Blood Venipuncture / Unknown 03/02/2021 8:22 AM CDT 03/02/2021 8:47 PM CDT Narrative [facility] - 03/02/2021 9:33 PM CDT TOTAL CHOLESTEROL mg/dL Desirable <200 Borderline high 200-239 High >=240 TRIGLYCERIDES mg/dL Normal <150 Borderline high 150-199 High 200-499 Very high >=500 HDL CHOLESTEROL mg/dL Low <40 Normal 40-59 Desirable >=60 NON HDL CHOLESTEROL mg/dL Optimal <130 Near Optimal 130-159 Borderline High 160-189 Very High >=190 CALCULATED LDL mg/dL LDL <70, OPTIMAL if have Atherosclerotic cardiovascular disease (ASCVD) or intermediate or higher (>7.5%) 10 year risk of ASCVD including most adults with diabetes. LDL <100, Optimal in adult patients with low (<7.5%) 10 year ASCVD risk LDL 100-160, Suboptimal LDL >160, High LDL >190, Very high ATPIII Guidelines Reference Ranges for Lipid Panels (NCEP/AMA) . us Sanam Sosa DO CHEMISTRY ORDERABLES Final Result [facility] CLIA# [id number] [facility] [place] [address] * MICROALBUMIN/CREATININE RATIO, RANDOM UR (08/02/2019 11:27 AM CDT) MICROALBUMIN, URINE <1.2 No Reference Range mg/dL 08/02/2019 8:03 PM CDT [facility] CREATININE, URINE 56.4 40.0 - 278.0 mg/dL 08/02/2019 8:03 PM CDT [facility] Comment:Reference Range vari es with fluid intake and diet. Urine URINE SPECIMEN OBTAINED BY CLEAN CATCH PROCEDURE / Unknown Collection / Unknown 08/02/2019 11:27 AM CDT 08/02/2019 7:25 PM CDT Narrative [facility] - 08/02/2019 8:03 PM CDT Condition Microalbumin/Creat ratio Normal Males <17 Normal Females <25 Microalbuminuria Males 17-299 Microalbuminuria Females 25-299 Overt proteinuria >=300 Unable to calculate urine microalbumin/creatinine ratio because urine microalbumin result is outside of reportable range. us Sanam Sosa DO URINE ORDERABLES Final Resu lt [facility] CLIA# [id number] [address] [place] [address] from Last 3 Months or Most Recently Relevant to Health Maintenance Insurance [facility] BCBS Advance Directives For more information, please contact: [phone] * Full Code (Latest Code Status on File) Date Activated Date Inactivated Comments 10/21/2017 5:24 PM 11/01/2017 7:04 PM * Full Code Date Activated Date Inactivated Comments 10/27/2016 10:12 AM 11/06/2016 3:48 PM * Full Code Date Activated Date Inactivated Comments 02/11/2014 11:00 PM 02/12/2014 2:14 PM * Full Code Date Activated Date Inactivated Comments 02/09/2014 7:27 AM 02/11/2014 11:00 PM * Full Code Date Activated Date Inactivated Comments 08/26/2010 7:02 AM 08/27/2010 2:50 PM Care Teams Movement Education Specialist Relationship Specialty Start Date End Date Sanam Sosa DO [address] [place] [phone] PCP - General Family Practice 11/23/10
--- OUTSIDE RECORDS SUMMARY | 2025-05-28 10:18 | XMS_ITS | Encounter Summary ---
Author Organization [facility] Address [address] [place] [address] Care Team Providers Care Personal Financial Advisor Name Role Phone Sanam Sosa DO Primary Care Provider Encounter Details Date Type Department Care Team (Latest Contact Info) Description 05/26/2006 Outpatient Historical [facility] Family [facility]- [place] [address] [place] [address] Rodrigue Grissom MD NO ADDRESS ON FILE Acute Sinusitis, Unspecified (Primary Dx); Acute Bronchitis Social History Tobacco Use Types Packs/Day Years Used Date Smoking Tobacco: Never Assessed Sex and Gender Information Value Date Recorded Sex Assigned at Not on file 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 Gender Identity Not on file Sexual Orientation Not on file documented as of this encounter Plan of Treatment Not on file documented as of this encounter Visit Diagnoses Diagnosis Acute sinusitis, unspecified- Primary Acute bronchitis documented in this encounter Additional Health Concerns Infection Onset Date Last Indicated Resolved Time MRSA Comment:Narama 10/23/16 RESOLVED 10/25/2016 10/25/2016 10/24/20 17 3:59 PM INDEPENDENT FILM MAKER documented as of this encounter Care Teams Personal Financial Advisor Relationship Specialty Start Date End Date Sanam Sosa DO [address] [place] [phone] PCP - General Family Practice 11/23/10 documented as of this encounter
--- OUTSIDE RECORDS SUMMARY | 2025-05-28 10:18 | XMS_ITS | Encounter Summary ---
Author Organization [facility] Address [address] [place] [address] Care Team Providers Care Deicer Kit Assembler Name Role Phone Sanam Sosa DO Primary Care Provider Encounter Details Date Type Department Care Team (Latest Contact Info) Description 04/09/2002 Outpatient 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 Gender Identity Not on file Sexual Orientation Not on file documented as of this encounter Plan of Treatment Not on file documented as of this encounter Visit Diagnoses Diagnosis Contact dermatitis and other eczema, due to unspecified cause- Primary documented in this encounter Additional Health Concerns Infection Onset Date Last Indicated Resolved Time MRSA Comment:Boogie 10/23/16 RESOLVED 10/25/2016 10/25/2016 10/24/20 17 3:59 PM TERMINAL WORKER documented as of this encounter Care Teams Deicer Kit Assembler Relationship Specialty Start Date End Date Sanam Sosa DO [address] [place] [phone] PCP - General Family Practice 11/23/10 documented as of this encounter
--- NOTE | 2025-05-28 10:20 | CT_ITS ---
WS: [id number] CT HEAD NONCONTRAST HISTORY: Headache TECHNIQUE: Contiguous axial imaging performed through the brain. Bone and soft tissue windows. Sagittal and coronal reformats reviewed. All CT scans at [facility] use at least one of these dose optimization techniques: automated exposure control; mA and/or kV adjustment per patient size (includes targeted exams where dose is matched to clinical indication); or iterative reconstruction. DLP: 1159.22 mGy.cm COMPARISON: 04/26/2025 No acute intracranial hemorrhage, midline shift or mass effect. Mild atrophy and mild small vessel disease. Mild cerebellar atrophy. Small lacunar infarct in the anterior limb RIGHT internal capsule. Ventricles: Normal size with no hydrocephalus. Paranasal sinuses: As visualized are clear. Mastoid air cells: Well pneumatized. Calvarium and scalp: Skull is intact with no soft tissue edema or swelling. CT/CT head wo con* [id number] IMPRESSION: 1. No acute intracranial hemorrhage or edema. 2. Mild atrophy and small vessel disease. Similar to the prior study.
--- NOTE | 2025-05-28 10:20 | ED_ITS ---
HPI - Weakness 2 General: Chief complaint: Weakness Stated complaint: Weakness, Time Seen by Provider: 05/28/25 10:14 History of Present Illness: 64-year-old male presents emergency room with complaint of headache general weakness and not feeling well he is presents to the emergency room via EMS. His main complaint is weakness and a headache. He has no focal neurologic deficits denies chest pain or abdominal pain. No recent falls or injury. Associated symptoms: Reports headache(s); Denies chest pain, chills, dysuria or fever(s) Related Data Home Medications ?Medication ?Instructions ?Recorded ?Confirmed metformin 1,000 mg tablet 1,000 mg PO BID 11/18/19 ketoconazole 2 % shampoo See Rx Instructions .Route 0 02/28/25 05/28/25 .COMPLEX PRN Skin Irritation ketoconazole 2 % topical cream See Rx Instructions .Ro chitina 02/28/25 05/28/25 .COMPLEX PRN Skin Irritation acetaminophen 325 mg tablet 650 mg PO TID PRN Pain 05/28/25 (Tylenol) bisacodyl 10 mg rectal suppository 10 mg [place] DAILY PRN constipation 04/26/25 05/28/25 (Dulcolax (bisacodyl)) bisacodyl 5 mg tablet,delayed 10 mg PO DAILY PRN const ipation 04/26/25 05/28/25 release (Dulcolax (bisacodyl)) diclofenac sodium 1 % topical gel 1 g topical TID 04/0805/28/25 famotidine 20 mg tablet 20 mg PO DAILY PRN Indigesti on 05/28/25 05/28/25 hydrocodone 5 mg-acetaminophen 325 1 tab PO Q8H PRN Pa in 05/28/25 05/28/25 mg tablet Previous Rx's ?Medication ?Instructions ?Recorded lactulose 10 gram/15 mL oral 20 g (30 mL) PO BID 30 da ys #1,800 04/29/25 solution mL cephalexin 500 mg capsule 500 mg PO TID 7 days #21 cap s 05/28/25 Allergies Allergy/AdvReac Type Severity Reaction Status Date / Time No Known Allergies Allergy Verified 05/28/25 10:17 Review of Systems 2 Const: Denies: fever(s) or chills Card: Denies: chest pain Resp: Denies: dyspnea GI: Denies: abdominal pain : Denies: dysuria, urinary frequency or urinary urgency Musc: Denies: neck pain or back pain Skin/Breast: Denies: rash Neuro: Reports: headache(s) PFSH ED 2 PFSH: Medical History History of colon polyps Prostate cancer Liver cirrhosis Insomnia Type 2 diabetes mellitus Hypothyroidism Surgical History H/O prostatectomy History of esophagogastroduodenoscopy Family History Mother Diabetes mellitus, type 2 Social History Smoking and tobacco/nicotine status: never used tobacco/nicotine Alcohol intake: former Substance/Drug Use: unknown Physical Exam 2 Const: GENERAL APPEARANCE: cooperative ORIENTATION/CONSCIOUSNESS: Yes awake, Yes oriented to person, Yes oriented to place and Yes oriented to time HENMT: COMMON NORMALS: normocephalic, atraumatic and hearing grossly normal bilaterally HEAD & SCALP: normocephalic and atraumatic Resp: COMMON NORMALS: normal respiratory effort, No retractions, No use of accessory muscles and clear to auscultation bilaterally AUSCULTATION: clear to auscultation bilaterally Cardio: COMMON NORMALS: regular rate, regular rhythm and No murmurs present (Cardio) RATE: regular rate RHYTHM: regular rhythm GI: COMMON NORMALS: Soft to palpation and No hepatosplenomegaly present A USCULTATION: Yes normoactive bowel sounds PALPATION: Yes Soft to palpation, No Tenderness to palpation present (GI), No Guarding due to palpation present (GI) and Yes No hepatosplenomegaly present Extremity: COMMON NORMALS: normal to inspection, capillary refill normal, no clubbing, cyanosis or edema, no calf tenderness and no pedal edema Neuro: SENSORIUM/ORIENTATION: Yes oriented to person, Yes oriented to place and Yes oriented to time Skin: COMMON NORMALS: no rashes or lesions noted GENERAL SKIN EXAM: no rashes or lesions noted Course 2 Vital Signs: Vital signs: Vital Signs Temperature 98.6 F 05/28/25 10:16 Pulse Rate 108 H 05/28/25 13:04 Respiratory Rate 20 H 05/28/25 13:04 Blood Pressure 106/77 05/28/25 13:04 Pulse Oximetry 96 05/28/25 13:04 MDM - Weakness Medical Decision Making No leukocytosis UA shows cystitis we will discharge patient home on oral antibiotics follow-up as needed Medical Records I reviewed the patient's medical records. Lab Data I reviewed the patient's lab results. 05/28/25 10:10 05/28/25 10:10 Radiology Impressions Chest X-Ray 05/28/25 10:16 IMPRESSION: Chronic emphysema. No pneumonia. Head CT 05/28/25 10:20 IMPRESSION: 1. No acute intracranial hemorrhage or edema. 2. Mild atrophy and small vessel disease. Similar to the prior study. Laboratory Results WBC 6.02 10^3/uL (3.29-11.43) 05/28/25 10:10 RBC 4.19 10^6/uL (3.85-5.65) 05/28/25 10:10 Hgb 12.60 g/dL (11.27-16.99) 05/28/25 10:10 Hct 38.7 % (37-53) 05/28/25 10:10 MCV 92.4 fl (82-101) 05/28/25 10:10 MCH 30.1 pg (27-33) 05/28/25 10:10 MCHC 32.6 g/dL (30-55) 05/28/25 10:10 RDW 14.8 % (12.1-15.1) 05/28/25 10:10 Plt Count 195 10^3/cmm (157-399) 05/28/25 10:10 MPV 9.4 fL (7.4-10.4) 05/28/25 10:10 Neut % (Auto) 55.9 % 05/28/25 10:10 Lymph % (Auto) 31.6 % 05/28/25 10:10 [place] % (Auto) 7.8 % 05/28/25 10:10 Eos % (Auto) 3.7 % 05/28/25 10:10 Baso % (Auto) 0.7 % 05/28/25 10:10 Neut # (Auto) 3.37 10^3/uL (1.8-7.7) 05/28/25 10:10 Lymph # (Auto) 1.9 10^3/uL (0.8-4.8) 05/28/25 10:10 [place] # (Auto) 0.5 10^3/uL (0.2-0.9) 05/28/25 10:10 Eos # (Auto) 0.2 10^3/uL (0.0-0.8) 05/28/25 10:10 Baso # (Auto) 0.0 10^3/uL (0.0-0.1) 05/28/25 10:10 Nucleated RBC % (auto) 0 % 05/28/25 10:10 Nucleated RBCs # 0.0 /100WBC 05/28/25 10:10 Sodium 140 mmol/L (136-145) 05/28/25 10:10 Potassium 4.0 mmol/L (3.5-5.1) 05/28/25 10:10 Chloride 108 mmol/L (98-107) H 05/28/25 10:10 Carbon Dioxide 19 mmol/L (22-29) L 05/28/25 10:10 Anion Gap 17.0 (5-19) 05/28/25 10:10 BUN 11 mg/dL (8-23) 05/28/25 10:10 Creatinine 0.6 mg/dL (0.7-1.2) L 05/28/25 10:10 GFR Calculation 134.8 mL/min (90-130) H 05/28/25 10:10 Glucose 123 mg/dL (65-115) H 05/28/25 10:10 Calculated Osmolality 291 mOsm/kg (285-295) 05/28/25 10:10 Calcium 8.8 mg/dL (8.5-10.5) 05/28/25 10:10 Total Bilirubin 0.8 mg/dL (0.15-1.2) 05/28/25 10:10 AST 28 U/L (0-40) 05/28/25 10:10 ALT 9 U/L (0-41) 05/28/25 10:10 Alkaline Phosphatase 106 U/L (40-130) 05/28/25 10:10 Total Protein 8.0 g/dL (6.6-8.7) 05/28/25 10:10 Albumin 2.9 g/dL (3.5-5.2) L 05/28/25 10:10 Globulin 5.1 g/dL (1.3-4.6) H 05/28/25 10:10 Urine Color Yellow (Yellow) 05/28/25 11:33 Urine Appearance Cloudy (CLEAR) A 05/28/25 11:33 Urine pH 6.5 (5-7) 05/28/25 11:33 Ur Specific [place] 1.017 (1.005-1.030) 05/28/25 11:33 Urine Protein Negative (Negative) 05/28/25 11:33 Urine Glucose (UA) Negative (Normal) 05/28/25 11:33 Urine Ketones Negative (Negative) 05/28/25 11:33 Urine Blood Negative (Negative) 05/28/25 11:33 Urine Nitrate Negative (Negative) 05/28/25 11:33 Urine Bilirubin Negative (Negative) 05/28/25 11:33 Urine Urobilinogen 1.0 mg/dL (Negative) 05/28/25 11:33 Ur Leukocyte Esterase 3+ (Negative) A 05/28/25 11:33 Urine RBC 0-2 /hpf (0-2) 05/28/25 11:33 Urine WBC >100 /hpf (0-5) H 05/28/25 11:33 Ur Squamous Epith Cells 0-5 /hpf (0-5) 05/28/25 11:33 Amorphous Sediment Not Reportable 05/28/25 11:33 Urine Bacteria 4+ /hpf (NONE) H 05/28/25 11:33 Hyaline Casts 3.30 /lpf 05/28/25 11:33 All radiology interpretation(s) finalized by discharge Discharge Plan Discharge Patient Disposition: Home Clinical Impression: Cystitis Condition: Stable Prescriptions: New cephalexin 500 mg capsule 500 mg PO TID 7 Days Qty: 21 0RF No Action metformin 1,000 mg Tablet 1,000 mg PO BID hydrocodone-acetaminophen 5-325 mg tablet 1 tab PO Q8H PRN (Reason: Pain) famotidine 20 mg tablet 20 mg PO DAILY PRN (Reason: Indigestion) ketoconazole 2 % shampoo See Rx Instructions .ROUTE .COMPLEX PRN (Reason: Skin Irritation) Rx Instructions: LATHER ONTO SCALP AND FACE 2-3 TIMES A WEEK. ALLOW TO SIT 5 MINUTES BEFORE RINSING. ketoconazole 2 % cream See Rx Instructions .ROUTE .COMPLEX PRN (Reason: Skin Irritation) Rx Instructions: APPLY TWICE DAILY TO RED SCALY AREAS ON FACE NEEDED. acetaminophen [Tylenol] 325 mg Tablet 650 mg PO TID PRN (Reason: Pain) bisacodyl [Dulcolax (bisacodyl)] 10 mg Suppository 10 mg MO DAILY PRN (Reason: constipation ) bisacodyl [Dulcolax (bisacodyl)] 5 mg Tablet,Delayed Release (Dr/Ec) 10 mg PO DAILY PRN (Reason: constipation ) diclofenac sodium 1 % Gel 1 g TOPICAL TID Rx Instructions: apply to single elbow, wrist or hand; for hand includes palm/fingers/back of hand lactulose 10 gram/15 mL Solution 20 g PO BID 30 Days Qty: 1800 0RF Discharge Orders: Discharge ED (Routine); Ordered 05/28/25 Ordered By: Jorge Solano Referrals: Demarcus Poole, [Primary Care Provider, Internal Medicine] Discharge Diet: Usual diet Discharge Activity: Resume usual activity Patient Instructions: Opioid Safety, Pain Management, Patient Portal & Janine Instructions Activity Restrictions/Additional Instructions: Thank you for choosing [facility] for your healthcare needs today. It is very important that you follow up as instructed or that you return to the Emergency Department should you have concerns or if your condition changes or worsens in any way. You were seen in the emergency room complaining of weakness there is no elevation in your white count did show that you have a mild cystitis. Recommend you start on oral antibiotics for 7 days. 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
--- NOTE | 2025-05-28 10:21 | ECG_ITS ---
[facility] 2025-[facility]28 Pat Name: Bernardino Jackson Department: Room: Gender: Male Director Corporate Communications: : 1960 Requested By: Jorge Lincoln Order Number: [id number] Avril MD: Molina Leslie M.D. Measurements Intervals [place] Rate: 107 P: -1 RI: 147 QRS: 10 QRSD: 75 T: 53 QT: 339 QTc: 453 Interpretive Statements SINUS TACHYCARDIA Compared to ECG 04/26/2025 17:29:57 Sinus rhythm no longer present Myocardial infarct finding no longer present Electronically Signed On 05-30-2025 09:05:16 CDT by Molina Leslie M.D. [email or web address]
[2025-05-28 10:31] LABS: Hematocrit 38.7 % (37-53); Hemoglobin 12.60 g/dL (11.27-16.99); Mean Corpuscular HGB Conc 32.6 g/dL (30-55); Mean Corpuscular Hemoglobin 30.1 pg (27-33); Mean Corpuscular Volume 92.4 fl (82-101); Nucleated Red Blood Cells % 0 %; Platelet Count 195 10^3/cmm (157-399); Red Blood Count 4.19 10^6/uL (3.85-5.65); White Blood Count 6.02 10^3/uL (3.29-11.43)
[2025-05-28 10:51] LABS: Alanine Aminotransferase 9 U/L (0-41); Albumin Level 2.9 g/dL (3.5-5.2); Alkaline Phosphatase 106 U/L (40-130); Anion Gap 17.0 (5-19); Aspartate Amino Transferase 28 U/L (0-40); Blood Urea Nitrogen 11 mg/dL (8-23); Calcium 8.8 mg/dL (8.5-10.5); Carbon Dioxide 19 mmol/L (22-29); Chloride 108 mmol/L (98-107); Creatinine Clr Calc Pharmacy 90.5786; Globulin 5.1 g/dL (1.3-4.6); Glucose 123 mg/dL (65-115); Osmolality Calculated 291 mOsm/kg (285-295); Potassium 4.0 mmol/L (3.5-5.1); Sodium 140 mmol/L (136-145); Total Protein 8.0 g/dL (6.6-8.7)
[2025-05-28 11:35] VITALS: BP 116/75; PULSE 101; RESP 13; O2SAT 95
[2025-05-28 11:39] LABS: Glucose Urine UA Negative (Normal); Nitrate Urine Negative (Negative); Specific Gravity, Urine 1.017 (1.005-1.030)
[2025-05-28 11:41] LABS: Add Urine Microscopic? YES
[2025-05-28 11:56] LABS: UA Slide Review UA Slide Review Perf
[2025-05-28 12:00] VITALS: BP 121/76; PULSE 102; RESP 14; O2SAT 97
[2025-05-28 13:04] VITALS: BP 106/77; PULSE 108; RESP 20; O2SAT 96
== END 2025-05-28 13:05 | disposition home or self-care (01) ==
PROVIDERS: Emergency Provider Family Medicine; PCP Internal Medicine
DX: N30.90 Cystitis, unspecified without hematuria (principal); E11.9 Type 2 diabetes mellitus without complications; Z85.46 Personal history of malignant neoplasm of prostate
CPT/HCPCS: 70450; 71045; 80053; 81001; 85025; 87077; 87086; 87186; 93005; 96360; 99285; J7040

== ENCOUNTER 2025-07-15 03:37 | Inpatient (IN) | payer MEDICARE, SELFPAY ==
[2025-07-15] VITALS (16 sets, daily range): BP systolic 87–104; BP diastolic 53–74; PULSE 78–97; RESP 15–20; TEMP 36.6–36.8; O2SAT 96–99; BMI 25.0
--- NOTE | 2025-07-15 03:45 | W.ED.ABDPA2 ---
HPI - Abdominal Pain General: Chief Complaint: Abdominal Pain Stated Complaint: ABD PAIN History of Present Illness: Patient is a 65-year-old male group home resident presenting with complaints of abdominal pain described as an ulcer flaring up. Symptoms have been present for the past couple of weeks. Patient reports that his group home caregiver would not provide adequate pain management, which prompted him to seek care. He reports vomiting, including an episode where he vomited immediately after attempting to eat a ham salad sandwich. Patient also reports black stools yesterday. Patient denies fever and cough. Related Data Home Medications ?Medication ?Instructions ?Recorded ?Confirmed metformin 1,000 mg tablet 1,000 mg PO BID 11/18/19 07/15/25 ketoconazole 2 % shampoo See Rx Instructions .Route 02/28/25 07/15/25 .COMPLEX PRN Skin Irritation ketoconazole 2 % topical cream See Rx Instructions .Route 02/28/25 07/15/25 .COMPLEX PRN Skin Irritation acetaminophen 325 mg tablet 650 mg PO TID PRN Pain 04/26/25 07/15/25 (Tylenol) bisacodyl 10 mg rectal suppository 10 mg [place] DAILY PRN constipation 04/26/25 07/15/25 (Dulcolax (bisacodyl)) bisacodyl 5 mg tablet,delayed 10 mg PO DAILY PRN constipation 04/26/25 07/15/25 release (Dulcolax (bisacodyl)) diclofenac sodium 1 % topical gel 1 g topical TID 04/26/25 07/15/25 famotidine 20 mg tablet 20 mg PO DAILY PRN Indigestion 05/28/25 07/15/25 hydrocodone 5 mg-acetaminophen 325 1 tab PO Q8H PRN Pain 05/28/25 07/15/25 mg tablet aluminum-mag hydroxide-simethicone 10 ml PO QID PRN constapation 07/15/25 07/15/25 200 mg-200 mg-20 mg/5 mL oral susp (Angy-Lanta) eszopiclone 1 mg tablet (Lunesta) 1 mg PO BEDTIME 07/15/25 07/15/25 gabapentin 300 mg capsule 300 mg PO TID 07/15/25 07/15/25 lactulose 10 gram/15 mL oral 30 ml PO BID 07/15/25 07/15/25 solution Allergies Allergy/AdvReac Type Severity Reaction Status Date / Time No Known Allergies Allergy Verified 05/28/25 10:17 [facility] ED PFS: Medical History (Updated 07/16/25 @ 20:13 by Jose Beach DO) History of colon polyps Prostate cancer Liver cirrhosis Insomnia Type 2 diabetes mellitus Hypothyroidism Surgical History H/O prostatectomy History of esophagogastroduodenoscopy Family History Mother Diabetes mellitus, type 2 Social History Smoking and tobacco/nicotine status: never used tobacco/nicotine Alcohol intake: former Substance/Drug Use: unknown Physical Exam Const: COMMON NORMALS: no acute distress GENERAL APPEARANCE: cooperative and frail appearing HENMT: COMMON NORMALS: normocephalic, atraumatic and Normal external nose present HEAD & SCALP: normocephalic and atraumatic FACE & SINUS: normal facial exam and face symmetric NOSE: Normal external nose present Eye: COMMON NORMALS: Equal, round and reactive pupils present and EOMs intact bilaterally PUPIL: Yes Equal, round and reactive pupils present Neck/C-Spine: GENERAL: Yes trachea midline Chest: CHEST: Yes Symmetrical chest wall rise Resp: COMMON NORMALS: normal respiratory effort, No retractions, No use of accessory muscles and clear to auscultation bilaterally AUSCULTATION: clear to auscultation bilaterally Cardio: COMMON NORMALS: regular rate and regular rhythm RATE: regular rate RHYTHM: regular rhythm GI: PALPATION: Yes Tenderness to palpation present (GI) (Epigastric) and Yes Guarding due to palpation present (GI) Extremity: COMMON NORMALS: no pedal edema Neuro: CHERELLE COMA SCALE: document GCS findings Higgins coma scale eye opening: Spontaneous [place] coma scale verbal response: Orientated [place] coma scale motor response: Obey commands Higgins coma scale total score: 15 SENSORY EXAM: Yes extremities (intact) Psych: COMMON NORMALS: speech normal SPEECH: Yes normal speech Skin: COMMON NORMALS: no rashes or lesions noted GENERAL SKIN EXAM: no rashes or lesions noted Course Vital Signs: Vital signs: Vital Signs Temperature 97.6 F 07/16/25 16:00 Pulse Rate 97 07/16/25 16:00 Respiratory Rate 15 07/16/25 16:00 Blood Pressure 101/58 07/16/25 16:00 Pulse Oximetry 100 07/16/25 16:00 Oxygen Delivery Me thod Room Air 07/16/25 16:00 MDM - Abdominal Pain Medical Decision Making The patient's vitals are stable. His heart rate is mildly fast. His hemoglobin is 8.7. It was 13 a month ago. His bicarbonate level is 19. Lactic acid is elevated at 5.3. CRP is only 4.9. Lipase is 27. CT scan is pending. He received morphine and Zofran and a GI cocktail and IV Protonix CT scan shows nonspecific duodenitis. With a drop in hemoglobin, duodenitis on CT scan, and lactic acidosis, he will be admitted to the hospital. Hospitalist has been notified, and will see the patient. Admit orders written. Lab Data 07/16/25 04:18 07/16/25 07:43 Labs/Radiology: Radiology Impressions Abdomen/Pelvis CT 07/15/25 04:27 IMPRESSION: Nonspecific duodenitis features. Probable duodenal diverticulum which could be incidental, alternatively the inflammation could be related to a duodenal diverticulitis. A large ulcer is not excluded. Laboratory Results WBC 6.19 10^3/uL (3.29-11.43) 07/15/25 03:49 RBC 3.38 10^6/uL (3.85-5.65) L 07/15/25 03:49 Hgb 8.70 g/dL (11.27-16.99) L 07/15/25 03:49 Hct 28.5 % (37-53) L 07/15/25 03:49 MCV 84.3 fl (82-101) 07/15/25 03:49 MCH 25.7 pg (27-33) L 07/15/25 03:49 MCHC 30.5 g/dL (30-55) 07/15/25 03:49 RDW 15.1 % (12.1-15.1) 07/15/25 03:49 Plt Count 165 10^3/cmm (157-399) 07/15/25 03:49 MPV 9.5 fL (7.4-10.4) 07/15/25 03:49 Neut % (Auto) 53.8 % 07/15/25 03:49 Lymph % (Auto) 33.0 % 07/15/25 03:49 [place] % (Auto) 9.5 % 07/15/25 03:49 Eos % (Auto) 2.4 % 07/15/25 03:49 Baso % (Auto) 0.8 % 07/15/25 03:49 Neut # (Auto) 3.33 10^3/uL (1.8-7.7) 07/15/25 03:49 Lymph # (Auto) 2.0 10^3/uL (0.8-4.8) 07/15/25 03:49 [place] # (Auto) 0.6 10^3/uL (0.2-0.9) 07/15/25 03:49 Eos # (Auto) 0.2 10^3/uL (0.0-0.8) 07/15/25 03:49 Baso # (Auto) 0.1 10^3/uL (0.0-0.1) 07/15/25 03:49 Nucleated RBC % (auto) 0 % 07/15/25 03:49 Nucleated RBCs # 0.0 /100WBC 07/15/25 03:49 Sodium 134 mmol/L (136-145) L 07/15/25 03:49 Potassium 4.3 mmol/L (3.5-5.1) 07/15/25 03:49 Chloride 102 mmol/L (98-107) 07/15/25 03:49 Carbon Dioxide 19 mmol/L (22-29) L 07/15/25 03:49 Anion Gap 17.3 (5-19) 07/15/25 03:49 BUN 12 mg/dL (8-23) 07/15/25 03:49 Creatinine 0.5 mg/dL (0.7-1.2) L 07/15/25 03:49 GFR Calculation 165.9 mL/min (90-130) H 07/15/25 03:49 Glucose 94 mg/dL (65-115) 07/15/25 03:49 Calculated Osmolality 278 mOsm/kg (285-295) L 07/15/25 03:49 Lactic Acid 5.3 mmol/L (0.5-2.2) H* 07/15/25 03:49 Calcium 9.1 mg/dL (8.5-10.5) 07/15/25 03:49 Iron 16 ug/dL (59-158) L 07/15/25 03:49 TIBC 246 mcg/dl 07/15/25 03:49 % Saturation 6.5 % (20-50) L 07/15/25 03:49 Unsat Iron Binding 230 ug/dL (112-347) 07/15/25 03:49 Total Bilirubin 0.6 mg/dL (0.15-1.2) 07/15/25 03:49 AST 16 U/L (0-40) 07/15/25 03:49 ALT 9 U/L (0-41) 07/15/25 03:49 Alkaline Phosphatase 88 U/L (40-130) 07/15/25 03:49 C-Reactive Protein 4.9 mg/L (0.0-4.9) 07/15/25 03:49 Total Protein 7.0 g/dL (6.6-8.7) 07/15/25 03:49 Albumin 3.0 g/dL (3.5-5.2) L 07/15/25 03:49 Globulin 4.0 g/dL (1.3-4.6) 07/15/25 03:49 Lipase 27 U/L (13-60) 07/15/25 03:49 Urine Color Yellow (Yellow) 07/15/25 05:20 Urine Appearance Cloudy (CLEAR) A 07/15/25 05:20 Urine pH 5.5 (5-7) 07/15/25 05:20 Ur Specific [place] 1.021 (1.005-1.030) 07/15/25 05:20 Urine Protein Negative (Negative) 07/15/25 05:20 Urine Glucose (UA) Negative (Normal) 07/15/25 05:20 Urine Ketones Negative (Negative) 07/15/25 05:20 Urine Blood Negative (Negative) 07/15/25 05:20 Urine Nitrate Negative (Negative) 07/15/25 05:20 Urine Bilirubin Negative (Negative) 07/15/25 05:20 Urine Urobilinogen 1.0 mg/dL (Negative) 07/15/25 05:20 Ur Leukocyte Esterase 2+ (Negative) A 07/15/25 05:20 Urine RBC 0-2 /hpf (0-2) 07/15/25 05:20 Urine WBC 51-100 /hpf (0-5) H 07/15/25 05:20 Ur Squamous Epith Cells 0-5 /hpf (0-5) 07/15/25 05:20 Amorphous Sediment Not Reportable 07/15/25 05:20 Urine Bacteria 4+ /hpf (NONE) H 07/15/25 05:20 Hyaline Casts 0.81 /lpf 07/15/25 05:20 All radiology interpretation(s) finalized by discharge Discharge Plan Discharge Patient Disposition: Admitted As Inpatient Admit Provider: Joslyn Scott Clinical Impression: Upper GI bleed Clinical Impression: (Ruled Out): Altered mental status Condition: Stable Discharge Diet: Advance as tolerated and GI Soft Discharge Activity: Resume usual activity Coding Level of Care Code ED Brine Tank Operator for Lamin Pink
--- OUTSIDE RECORDS SUMMARY | 2025-07-15 03:49 | XMS_ITS | Continuity of Care Document ---
Author Organization [facility] Address [address] [place] [address] Care Team Providers Care Trailer Chief Name Role Phone Dr. Demarcus Poole DO Attending Physician Medications Medication Frequency Instructions Diagnosis Start Date End Date Last Administered diclofenac sodium 1 % gel Three Times A Day 1 gram, topical, Three Times A Day, to single elbow, wrist or hands 05/06/2007/12/2025 01:18 PM Dulcolax (bisacodyl) (bisacodyl) 10 mg suppository Once A Day - PRN 1 suppository, rectal, Once A Day - PRN, Give rectally if can't take p/o, if no results from [facility] 05/06/20 25 famotidine 20 mg tablet Other 1, oral, Other, once daily as needed 05/14/20 25 07/06/2025 12:30 PM gabapentin 300 mg capsule Three Times A Day 1, oral, Three Times A Day 07/11/2007/12/2025 01:18 PM Angy-Lanta (alum-mag hydroxide-simeth) 200-200-20 mg/5 mL suspension Every 6 Hours - PRN 10, oral, Every 6 Hours - PRN 07/02/20 25 07/11/2025 06:06 PM hydrocodone-acetam inophen 5-325 mg tablet Every 8 Hours - PRN 1 tab, oral, Every 8 Hours - PRN, for pain; exempt R52 05/06/20 25 07/09/2025 11:37 AM ketoconazole 2 % cream Twice A Day - PRN 1 application, topical, Twice A Day - PRN, to scaley areas on face 05/06/2006/22/2025 07:31 PM ketoconazole 2 % shampoo Once A Day on Mon, Tue, Tue 1 application, topical, Once A Day on Tue, Tue, Tue, to scalp and face, sit 5 minutes before rinsing 05/06/2007/12/2025 06:36 AM lactulose 10 gram/15 mL solution Twice A Day 30 mL (20 gram), oral, Twice A Day 05/06/20 25 07/10/2025 08:46 PM Lunesta (eszopiclone) 1 mg tablet At Bedtime 1, oral, At Bedtime 07/07/2007/11/2025 08:47 PM metformin 1,000 mg tablet Twice A Day 1 tab, oral, Twice A Day 05/06/20 25 07/12/2025 06:36 AM Tylenol (acetaminophen) 325 mg tablet Every 6 Hours - PRN 2 tabs/650mg, oral, Every 6 Hours - PRN, as needed for PRN pain/increased temp May give rectally if necessary 05/06/20 25 07/06/2025 12:30 PM Arexvy (PF) (rsvpref3 antigen-as01e (pf)) 120 mcg/0.5 mL suspension for reconstitution Once - One Time 0.5ml, intramuscular, Once - One Time 06/25/20 025 06/25/2025 09:39 AM gabapentin 300 mg capsule At Bedtime 1, oral, At Bedtime 07/01/20 025 07/10/2025 08:46 PM Lunesta (eszopiclone) 1 mg tablet At Bedtime 1, oral, At Bedtime 06/17/20 25 025 07/06/2025 07:00 PM Problems Code Type Problem ICD Code Effective Date Status ICD-10 Alcoholic cirrhosis of liver without ascites K7 0.30 03/14/2025 Active ICD-10 Unspecified rotator cuff tear or rupture of right shoulder, not specified as traumatic M75.101 05/06/2025 Active ICD-10 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 classified elsewhere, right shoulder M90.511 05/08/2025 Active ICD-10 History of falling Z91.81 03/14/2025 Active ICD-10 Adult failure to thrive R62.7 03/14/2025 A ctive ICD-10 Type 2 diabetes jessica itus without complications E11.9 03/14/2025 Active ICD-10 snf (current) use of oral hypoglycemic drugs Z79.84 03/14/2025 Active ICD-10 Sciatica, unspecified side M54.30 Active ICD-10 Other chronic pain G89.29 07/01/2025 Active ICD-10 Psychophysiologic insomnia F51.04 Active ICD-10 Bipolar disorder, unspecified F31.9 2024 Active ICD-10 Anxiety disorder, unspecified F41.9 2024 Active ICD-10 Moderate protein-calorie malnutrition E44.0 03/14/2025 Active ICD-10 Gastro-esophageal re flux disease without esophagitis K21.9 06/17/2025 Active ICD-10 Tobacco use Z72.0 03/14/2025 Active ICD-10 Unvaccinated for COVID-19 Z28.310 03/14/2025 Active ICD-10 Do not resuscitate Z66 03/14/2025 Active Current Allergies and Intolerances Category Substance Type Reaction Severity Begin Date Status Drug Allergy No known drug allergies Allergy 06/2025 Active Vital Signs Height: 68.0 in Date / Time Temperature Pulse (per minute) Respirations (per minute) Systolic BP (mmHg) Diastolic BP (mmHg) O2 Saturation (%) Weight BMI 2024 08:31 AM 98.5 F 90 16 115 61 95.0 2024 08:25 AM 174.8 lbs 26.5 8 2024 10:44 AM 98.0 F 80 16 120 66 97.0 2024 12:50 PM 98.4 F 86 16 118 60 98.0 2024 07:04 AM 98.4 F 92 17 110 52 94.0 2024 08:46 AM 175.4 lbs 26.6 7 2024 04:42 PM 174.0 lbs 26.4 5 2024 02:11 PM 98.9 F 68 16 136 72 96.0 2024 08:35 AM 174.0 lbs 26.4 5 2024 12:56 PM 176.0 lbs 26.7 6 2024 11:46 AM 176.2 lbs 26.7 9 2024 07:53 AM 97.3 F 100 16 118 62 97.0 2024 03:31 PM 165.3 lbs 25.1 3 2024 12:57 PM 97.0 F 70 18 128 72 98.0 2024 01:18 PM 166.8 lbs 25.3 6 2024 11:29 AM 97.5 F 72 20 126 80 97.0 2024 05:22 PM 167.1 lbs 25.4 2024 10:54 AM 98.3 F 98 20 131 64 93.0 2024 02:51 AM 97.4 F 105 15 120 63 95.0 2024 11:16 AM 167.6 lbs 25.4 8 2024 01:36 PM 166.8 lbs 25.3 6 2024 01:02 PM 166.2 lbs 25.2 7 2024 05:51 PM 167.7 lbs 25.5 Advance Directives Directive Note Do Not Resuscitate (DNR) Insurance Providers Payer Policy type Group Name Group number Policy ID Address Ph one Medicare Part A Medicare Part A [id number] Phone: Fax: [facility] Levels MAO Commercial Insurance [id number] Phone: Fax: [facility] - % of Charges - [facility] Commercial Insurance [id number] [address] [address] [place] [address] Phone: Fax: Private Private Phone: Fax: Private Interest Private Phone: Fax: Private Copay - Ins/HMO Private Phone: Fax: Immunizations Vaccine Manager Strategy Date Status Dose Series Complete COVID-19 Vaccine 03/14/2025 Refused Influenza Vaccine 06/21/2025 Refused Pneumococcal Vaccine 03/14/2025 Refused RSV Vaccine [employer] 06/25/2025 Completed 1 Procedures Not available for this record Results Name Date Time Positive/Negative Value Unit Range TB test 05/07/2025 07:17 AM Unknown mm Goals Goal Date Will have a BM at least ever y 3 days for 120 days since update/last review AND/OR will not experience any complications r/t to colostomy for 120 days from update/ last review AND/OR Will not experience any GI complications for 120 days since update/last review AND/OR Will remain clean, dry between incontinent episodes thru 120days from update/last review 09/25/2025 Will have positive responses to activities of my choice weekly through next assessment such as..... 09/25/2025 [place] will maintain or improve nutrition al status through next review 09/25/2025 Resident's skin will remain intact. 09/07 Resident will remain free from falls. Will not exhibit any s/sx of hypo/hyperglycemia for 120 days from update/ last review 09/25/2025 restorative therapy to U/Es to maintain strength and ROM to help with ADLs . 3 x week for 12 weeks . 09/25/2025 Resident will practice safe smoking tech nique while supervised by staff 09/25/2025 Advanced directives will be honored as outlined by patient/family on daily basis thru 120days from update/last review 09/25/2025 Resident will improve memory /recall ability as evidenced by: ___ (e.g., recalling staff names, stating he/she is in a correction, recognizing staff faces, etc). 09/25/2025 ADL approaches will meet the resident?s needs to enhance ability, maintain abilities, or provide quality. 09/25/2025 Encounters Admission Date Discharge Date Description MRN Visit Count 03/14/2025 12:31 LTPAC Admission [id number]
--- OUTSIDE RECORDS SUMMARY | 2025-07-15 03:49 | XMS_ITS | Clinical Summary ---
Author Organization [facility] Address [address] [place] [address] Care Team Providers Care Rescue Boat Operator Name Role Phone Sanam Sosa Primary Care Provider Allergies Active Allergy Reactions Criticality Noted Date Comments Haloperidol Lactate Arrhythmia,Bradycard ia High 02/11/2014 Heart block and bradycardia after receiving Medications levothyroxine 25 mcg tablet Take 1 Tablet (25 mcg) by mouth daily laundry machine tender. 30 Tablet 5 8 Active pantoprazole (PROTONIX) [...] on file Legal Sex Male 5:58 AM MAP DRAFTER Gender Identity Not on file Sexual Orientation Not on file Occupation Industry Job Start Date Job End Date Not on file Not on file Not on file Not on file Last Filed Vital Signs Vital Sign Reading Time Taken Comments Blood Pressure 136/82 11/13/2020 4:43 PM MAP DRAFTER Pulse 101 11/13/2020 4:43 PM MAP DRAFTER Temperature 36.6 C (97.8 F) 11/13/2020 4:43 PM MAP DRAFTER Respiratory Rate 18 11/13/2020 4:43 PM MAP DRAFTER Oxygen Saturation 94% 11/13/2020 4:43 PM MAP DRAFTER Inhaled Oxygen Concentration - - Weight 106.1 kg (234 lb) 11/13/2020 4:43 PM MAP DRAFTER Height 177.8 cm (5' 10 ) 11/13/2020 4:43 PM MAP DRAFTER Body Mass Index 33.58 11/13/2020 4:43 PM MAP DRAFTER Plan of Treatment Health Maintenance Due Date [...] complication, without long-term current use of insulin ([facility]) HEMOGLOBIN A1C Routine 03/02/2021 8:22 AM CDT Type 2 diabetes mellitus without complication, without long-term current use of insulin ([facility]) MICROALBUMIN/CREATIN INE RATIO, RANDOM UR Routine 08/02/2019 11:27 AM CDT from Last 3 Months or Most Recently Relevant to Health Maintenance Results * (ABNORMAL) HEMOGLOBIN A1C (03/02/2021 8:22 AM CDT) HEMOGLOBIN A1C 6.5(H) See Comment % 03/02/2021 9:11 PM CDT [facility] EST. AVG GLUCOSE, A1C 140 mg/dL 03/02/2021 9:11 PM CDT [facility] Blood Venipuncture / Unknown 03/02/2021 8:22 AM CDT 03/02/2021 8:46 PM CDT Narrative [facility] - 03/02/2021 9:11 PM CDT HGB A1C INTERPRETATION NORMAL: <5.7% PRE-DIABETES: 5.7 - 6.4% DIABETES: 6.5% OR GREATER Falsely low A1C measurements can occur when: 1. Anemia and/or hemolytic anemia is present. 2. Hemoglobin variants present. 3. Renal failure. 4. Transfusion of blood product in the last 120 days. We recommend ordering a fructosamine test([id number]) to more accurately assess glycemic status if any of the above conditions are present. us Sanam Sosa DO CHEMISTRY ORDERABLES Final Result [facility] CLIA# [id number] [facility] [place] [address] * (ABNORMAL) LIPID PANEL (03/02/2021 8:22 AM CDT) CHOLESTEROL 176 <200 mg/dL 03/02/2021 9:33 PM CDT [facility] TRIGLYCERIDE 177(H) <150 mg/dL 03/02/2021 9:33 PM CDT [facility] HDL 48 40 - 59 mg/dL 03/02/2021 9:33 PM CDT [facility] LDL CALCULATED 93 <100 mg/dL 03/02/2021 9:33 PM CDT [facility] NON-HDL CHOLESTEROL 128 <130 mg/dL 03/02/2021 9:33 PM CDT [facility] Blood Venipuncture / Unknown 03/02/2021 8:22 AM CDT 03/02/2021 8:47 PM CDT Narrative [facility] - 03/02/2021 9:33 PM [...] Sanam Sosa DO CHEMISTRY ORDERABLES Final Result [facility] CLIA# [id number] [facility] [place] [address] * MICROALBUMIN/CREATININE RATIO, RANDOM UR (08/02/2019 11:27 AM CDT) MICROALBUMIN, URINE <1.2 No Reference Range mg/dL 08/02/2019 8:03 PM CDT [facility] CREATININE, URINE 56.4 40.0 - 278.0 mg/dL 08/02/2019 8:03 PM CDT [facility] Comment:Reference Range vari es with fluid intake and diet. Urine URINE SPECIMEN OBTAINED BY CLEAN CATCH PROCEDURE / Unknown Collection / Unknown 08/02/2019 11:27 AM CDT 08/02/2019 7:25 PM CDT Narrative [facility] - 08/02/2019 8:03 PM CDT Condition Microalbumin/Creat ratio Normal Males <17 Normal Females <25 Microalbuminuria Males 17-299 Microalbuminuria Females 25-299 Overt proteinuria >=300 Unable to calculate urine microalbumin/creatinine ratio because urine microalbumin result is outside of reportable range. us Sanam Sosa DO URINE ORDERABLES Final Resu lt [facility] CLIA# [id number] [address] [place] [address] from Last 3 Months or Most Recently Relevant to Health Maintenance Insurance [facility] BCBS Advance Directives For more information, please contact: [phone] * Full Code (Latest Code Status on [...] 7:02 AM 08/27/2010 2:50 PM Care Teams Rescue Boat Operator Relationship Specialty Start Date End Date Sanam Sosa DO [address] [place] [phone] PCP - General Family Practice 11/23/10
--- OUTSIDE RECORDS SUMMARY | 2025-07-15 03:49 | XMS_ITS | Encounter Summary ---
Author Organization [facility] Address [address] [place] [address] Care Team Providers Care Pilot Boat Captain Name Role Phone Sanam Sosa DO Primary Care Provider Encounter Details Date Type Department Care Team (Latest Contact Info) Description 11/05/2005 Outpatient Historical [facility] Family Medicine- [place] [address] [place] [address] Maximo Fox, PLATE HANGER [address] [place], [place] [id number] BRONCHITIS NOS (Primary Dx) Social History Tobacco Use Types Packs/Day Years Used Date Smoking Tobacco: Never Assessed Sex and Gender Information Value Date Recorded Sex Assigned at Not on file Legal Sex Male 5:58 AM CVICU NURSE Gender Identity Not on file Sexual Orientation Not on file documented as of this encounter Plan of Treatment Not on file documented as of this encounter Visit Diagnoses Diagnosis Bronchitis, not specified as acute or chronic- Primary documented in this encounter Additional Health Concerns Infection Onset Date Last Indicated Resolved Time MRSA Comment:Nares 10/23/16 RESOLVED 10/25/2016 10/25/2016 10/24/20 17 3:59 PM CVICU NURSE documented as of this encounter Care Teams Pilot Boat Captain Relationship Specialty Start Date End Date Sanam Sosa DO [address] [place] [phone] PCP - General Family Practice 11/23/10 documented as of this encounter
--- OUTSIDE RECORDS SUMMARY | 2025-07-15 03:49 | XMS_ITS | Encounter Summary ---
Author Organization [facility] Address [address] [place] [address] Care Team Providers Care Marketing Sales Consultant Name Role Phone Sanam Sosa DO Primary Care Provider Reason for Referral * Outpatient Services (Routine) - Closed Specialty Diagnoses / Procedures Referred By Wes david Referred To Contact Diagnoses Thoracic or lumbosacral neuritis or radiculitis, unspecified Procedures XR FLUORO NEEDLE GUIDANCE Poncho Ferrer MD NO ADDRESS ON FILE Referral ID Status Reason Start Date Expiration Date Visits Re quested Visits Authorized [id number] Closed 05/15/2013 06/15/2014 1 1 Encounter Details Date Type Department Care Team (Late st Contact Info) Description 05/15/[address] [facility] Pain Management Procedures [place] [address] [place] [phone] Poncho Ferrer MD NO ADDRESS ON FILE [...] on file Legal Sex Male 5:58 AM NETWORK RELATIONS CONSULTANT Gender Identity Not on file Sexual Orientation [...] RESOLVED 10/25/2016 10/25/2016 10/24/20 17 3:59 PM NETWORK RELATIONS CONSULTANT documented as of this encounter Care Teams Marketing Sales Consultant Relationship Specialty Start Date End Date Sanam Sosa DO [address] [place] [address] PCP - General Family Practice 11/23/10 documented as of this encounter
--- OUTSIDE RECORDS SUMMARY | 2025-07-15 03:49 | XMS_ITS | Encounter Summary ---
Author Organization [facility] Address [address] [place] [address] Care Team Providers Care Operator Supply Name Role Phone Sanam Sosa DO Primary Care Provider Encounter Details Date Type Department Care Team (Latest Contact Info) Description 04/09/2002 Outpatient [facility] [address] [place] [phone] Enrrique Hernandez MD NO ADDRESS ON FILE DERMATITIS NOS (Primary Dx) Social History Tobacco Use Types Packs/Day Years Used Date Smoking Tobacco: Never Assessed Sex and Gender Information Value Date Recorded Sex Assigned at Not on file Legal Sex Male 5:58 AM PRODUCT ACCOUNTANT Gender Identity Not on file Sexual Orientation Not on file documented as of this encounter Plan of Treatment Not on file documented as of this encounter Visit Diagnoses Diagnosis Contact dermatitis and other eczema, due to unspecified cause- Primary documented in this encounter Additional Health Concerns Infection Onset Date Last Indicated Resolved Time MRSA Comment:Boogie 10/23/16 RESOLVED 10/25/2016 10/25/2016 10/24/20 17 3:59 PM PRODUCT ACCOUNTANT documented as of this encounter Care Teams Operator Supply Relationship Specialty Start Date End Date Sanam Sosa DO [address] [place] [address] PCP - General Family Practice 11/23/10 documented as of this encounter
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
--- OUTSIDE RECORDS SUMMARY | 2025-07-15 03:49 | XMS_ITS | Encounter Summary ---
Author Organization [facility] Address [address] [place] [address] Care Team Providers Care Fire Crew Specialist Name Role Phone Sanam Sosa DO Primary Care Provider Encounter Details Date Type Department Care Team (Latest Contact Info) Description 05/26/2006 Outpatient Historical [facility] Family Medicine- [place] [address] [place] [address] Rodrigue Grissom MD NO ADDRESS ON FILE Acute Sinusitis, Unspecified (Primary Dx); Acute Bronchitis Social History Tobacco Use Types Packs/Day Years Used Date Smoking Tobacco: Never Assessed Sex and Gender Information Value Date Recorded Sex Assigned at Not on file Legal Sex Male 5:58 AM TOWN JUSTICE Gender Identity Not on file Sexual Orientation Not on file documented as of this encounter Plan of Treatment Not on file documented as of this encounter Visit Diagnoses Diagnosis Acute sinusitis, unspecified- Primary Acute bronchitis documented in this encounter Additional Health Concerns Infection Onset Date Last Indicated Resolved Time MRSA Comment:Narama 10/23/16 RESOLVED 10/25/2016 10/25/2016 10/24/20 17 3:59 PM TOWN JUSTICE documented as of this encounter Care Teams Fire Crew Specialist Relationship Specialty Start Date End Date Sanam Sosa DO [address] [place] [phone] PCP - General Family Practice 11/23/10 documented as of this encounter
--- OUTSIDE RECORDS SUMMARY | 2025-07-15 03:50 | XMS_ITS | Continuity of Care Document ---
Author Organization [facility] (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, right shoulder M90.511 05/08/2025 Active History of falling Z91.81 03/14/2025 Ac tive Adult failure to thrive R62.7 03/14/2025 Active Type 2 diabetes mellitus without complications E11.9 03/14/2025 Act geovanny FPC (current) use of oral hypoglycemic drugs Z79.84 03/14/2025 Active Sciatica, unspecified side M54.30 07/01/2025 Active Other chronic pain G89.29 07/01/2025 Ac tive Psychophysiologic insomnia F51.04 05/20/2025 Active Bipolar disorder, unspecified F31.9 03/20/2025 Active Anxiety disorder, unspecified F41.9 03/20/2025 Active Moderate protein-calorie malnutrition E44.0 03/14/2025 Active Gastro-esophageal reflux disease without esophagitis K21.9 06/17/2025 Active Tobacco use Z72.0 03/14/2025 Active Unvaccinated for COVID-19 Z28.310 03/14/2025 Active Do not resuscitate Z66 03/14/2025 Ac tive Results No Results Allergies, adverse reactions, alerts No known allergies and adverse reactions Immunizations Vaccine Route Date Status COVID-19 Vaccine Unassigned Route of Administration Refused Influenza Vaccine Unassigned Route of Administration 0 06/21/2025 Refused RSV Vaccine Unassigned Route of Administration 2024 Completed Medications Medication Instructions Route Dosage Frequency Start Date Stop Date Indications Status diclofenac sodium 1 % gel (diclofenac sodium) 1 gram, topical, Three Times A Day, to single elbow, wrist or hands topical 1.0 8.0 h 2024 Active Dulcolax (bisacodyl) (bisacodyl) 10 mg suppository (Dulcolax (bisacodyl) (bisacodyl)) 1 suppository, rectal, Once A Day - PRN, Give rectally if can't take p/o, if no results from MOM rectal 1.0 1.0 d 2024 Active famotidine 20 mg tablet (famotidine) 1, oral, Other, once daily as needed oral 1.0 2024 Active gabapentin 300 mg capsule (gabapentin) 1, oral, Three Times A Day oral 1.0 8.0 h 2024 Active Angy-Lanta (alum-mag hydroxide-simet h) 200-200-20 mg/5 mL suspension (Angy-Lanta (alum-mag hydroxide-simet h)) 10, oral, Every 6 Hours - PRN oral 1.0 6.0 h 2024 Active hydrocodone-praveen taminophen 5-325 mg tablet (hydrocodone-ac etaminophen) 1 tab, oral, Every 8 Hours - PRN, for pain; exempt R52 oral 1.0 8.0 h 2024 Active ketoconazole 2 % cream (ketoconazole) 1 application, topical, Twice A Day - PRN, to scaley areas on face topical 1.0 12.0 h 2024 Active ketoconazole 2 % shampoo (ketoconazole) 1 application, topical, Once A Day on Mon, Wed, Fri, to scalp and face, sit 5 minutes before rinsing topical 1.0 1.0 d 2024 Active lactulose 10 gram/15 mL solution (lactulose) 30 mL (20 gram), oral, Twice A Day oral 1.0 12.0 h 2024 Active Lunesta (eszopiclone) 1 mg tablet (Lunesta (eszopiclone)) 1, oral, At Bedtime oral 1.0 2024 Active metformin 1,000 mg tablet (metformin) 1 tab, oral, Twice A Day oral 1.0 12.0 h 2024 Active Tylenol (acetaminophen) 325 mg tablet (Tylenol (acetaminophen) ) 2 tabs/650mg, oral, Every 6 Hours - PRN, as needed for PRN pain/increase d tempMay give rectally if necessary oral 1.0 6.0 h 2024 Active Arexvy (PF) (rsvpref3 antigen-as01e (pf)) 120 mcg/0.5 mL suspension for reconstitution (Arexvy (PF) (rsvpref3 antigen-as01e (pf))) 0.5ml, intramuscular , Once - One Time intramuscu lar 1.0 06/25 Active gabapentin 300 mg capsule (gabapentin) 1, oral, At Bedtime oral 1.0 07/11 Active Lunesta (eszopiclone) 1 mg tablet (Lunesta (eszopiclone)) 1, oral, At Bedtime oral 1.0 07/07 Active Vital Signs Date Vital Result Comment 07/10/2025 08:31 AM Temperature (8310-5) 98.5 [degF] Oxygen Saturation (86275-1) 95 % Respiratory Rate (9279-1) 16 /min Heart Rate (8867-4) 90 /min Blood Pressure Systolic (8480-6) 115 mm[Hg] Blood Pressure Diastolic (8462-4) 61 mm[Hg] 07/08/2025 08:25 AM Body Weight (36945-1) 174.8 [lb_av ] Body Mass Index (25628-9) 26.58 kg/m2 07/03/2025 10:44 AM Temperature (8310-5) 98 [degF] Oxygen Saturation (59434-5) 97 % Respiratory Rate (9279-1) 16 /min Heart Rate (8867-4) 80 /min Blood Pressure Systolic (8480-6) 120 mm[Hg] Blood Pressure Diastolic (8462-4) 66 mm[Hg] 06/26/2025 12:50 PM Temperature (8310-5) 98.4 [degF] Oxygen Saturation (87854-8) 98 % Respiratory Rate (9279-1) 16 /min Heart Rate (8867-4) 86 /min Blood Pressure Systolic (8480-6) 118 mm[Hg] Blood Pressure Diastolic (8462-4) 60 mm[Hg] 06/19/2025 07:04 AM Temperature (8310-5) 98.4 [degF] Oxygen Saturation (99172-4) 94 % Respiratory Rate (9279-1) 17 /min Heart Rate (8867-4) 92 /min Blood Pressure Systolic (8480-6) 110 mm[Hg] Blood Pressure Diastolic (8462-4) 52 mm[Hg] 06/13/2025 08:46 AM Body Weight (76366-5) 175.4 [lb_av ] Body Mass Index (05664-6) 26.67 kg/m2 06/12/2025 04:42 PM Body Weight (32756-9) 174 [lb_av] Body Mass Index (53295-4) 26.45 kg/m2 06/12/2025 02:11 PM Temperature (8310-5) 98.9 [degF] Oxygen Saturation (17785-8) 96 % Respiratory Rate (9279-1) 16 /min Heart Rate (8867-4) 68 /min Blood Pressure Systolic (8480-6) 136 mm[Hg] Blood Pressure Diastolic (8462-4) 72 mm[Hg] 06/11/2025 08:35 AM Body Weight (99174-8) 174 [lb_av] Body Mass Index (16261-2) 26.45 kg/m2 06/10/2025 12:56 PM Body Weight (34079-8) 176 [lb_av] Body Mass Index (35002-9) 26.76 kg/m2 06/07/2025 11:46 AM Body Weight (11844-7) 176.2 [lb_av ] Body Mass Index (90869-3) 26.79 kg/m2 06/05/2025 07:53 AM Temperature (8310-5) 97.3 [degF] Oxygen Saturation (55868-1) 97 % Respiratory Rate (9279-1) 16 /min Heart Rate (8867-4) 100 /min Blood Pressure Systolic (8480-6) 118 mm[Hg] Blood Pressure Diastolic (8462-4) 62 mm[Hg] 05/29/2025 03:31 PM Body Weight (18827-3) 165.3 [lb_av ] Body Mass Index (76544-5) 25.13 kg/m2 05/29/2025 12:57 PM Temperature (8310-5) 97 [degF] Oxygen Saturation (61143-4) 98 % Respiratory Rate (9279-1) 18 /min Heart Rate (8867-4) 70 /min Blood Pressure Systolic (8480-6) 128 mm[Hg] Blood Pressure Diastolic (8462-4) 72 mm[Hg] 05/22/2025 01:18 PM Body Weight (90498-5) 166.8 [lb_av ] Body Mass Index (27750-2) 25.36 kg/m2 05/22/2025 11:29 AM Temperature (8310-5) 97.5 [degF] Oxygen Saturation (10839-7) 97 % Respiratory Rate (9279-1) 20 /min Heart Rate (8867-4) 72 /min Blood Pressure Systolic (8480-6) 126 mm[Hg] Blood Pressure Diastolic (8462-4) 80 mm[Hg] 05/15/2025 05:22 PM Body Weight (74458-7) 167.1 [lb_av ] Body Mass Index (05736-3) 25.4 kg/m2 05/11/2025 10:54 AM Temperature (8310-5) 98.3 [degF] Oxygen Saturation (85431-6) 93 % Respiratory Rate (9279-1) 20 /min Heart Rate (8867-4) 98 /min Blood Pressure Systolic (8480-6) 131 mm[Hg] Blood Pressure Diastolic (8462-4) 64 mm[Hg] 05/11/2025 02:51 AM Temperature (8310-5) 97.4 [degF] Oxygen Saturation (51326-1) 95 % Respiratory Rate (9279-1) 15 /min Heart Rate (8867-4) 105 /min Blood Pressure Systolic (8480-6) 120 mm[Hg] Blood Pressure Diastolic (8462-4) 63 mm[Hg] 05/09/2025 11:16 AM Body Weight (22357-3) 167.6 [lb_av ] Body Mass Index (20054-6) 25.48 kg/m2 05/08/2025 01:36 PM Body Weight (48678-3) 166.8 [lb_av ] Body Mass Index (02801-6) 25.36 kg/m2 05/07/2025 01:02 PM Body Weight (37961-1) 166.2 [lb_av ] Body Mass Index (83754-3) 25.27 kg/m2 05/06/2025 05:52 PM Body Height (8302-2) 68 [in_us] 05/06/2025 05:51 PM Body Weight (69856-2) 167.7 [lb_av ] Body Mass Index (18529-3) 25.5 kg/m2 Social History No smoking Hx information available Encounters Type CPT Code Date Location Provider Indication s encounter report 03/14/2025 12:31 PM Tomeka Poole DO 01 Advance Directives Directive Description Verification Date Supporting Document(s) Resuscitation
[2025-07-15] MEDS: ondansetron 2 mg/ML SDV 2 mL 4 MG IVP (03:58)
[2025-07-15] MEDS: morphine 4 mg/mL SDV 1 mL IVP (04:00)
[2025-07-15] MEDS: lidocaine 2% viscous 15 ML, aluminum-mag hydrox-simethicon 30 ML, sucralfate oral liq 1 GM PO (04:01)
[2025-07-15 04:13] LABS: Hematocrit 28.5 % (37-53); Hemoglobin 8.70 g/dL (11.27-16.99); Mean Corpuscular HGB Conc 30.5 g/dL (30-55); Mean Corpuscular Hemoglobin 25.7 pg (27-33); Mean Corpuscular Volume 84.3 fl (82-101); Nucleated Red Blood Cells % 0 %; Platelet Count 165 10^3/cmm (157-399); Red Blood Count 3.38 10^6/uL (3.85-5.65); White Blood Count 6.19 10^3/uL (3.29-11.43)
--- NOTE | 2025-07-15 04:27 | CTR_ITS ---
PROCEDURE INFORMATION: Exam: CT Abdomen And Pelvis With Contrast Exam date and time: 07/15/2025 4:40 AM Age: 65 years old Clinical indication: Pain and abnormal findings; Abnormal lab test; Nausea and vomiting; Abdominal pain; Prior surgery; Surgery date: 6+ months; Surgery type: Hernia repair. Prostatectomy; Epigastric pain with n/v and anemia. History of prostate cancer. ; Additional info: Epigastric pain, anemia, vomiting TECHNIQUE: Imaging protocol: Computed tomography of the abdomen and pelvis with contrast. Radiation optimization: All CT scans at this facility use at least one of these dose optimization techniques: automated exposure control; mA and/or kV adjustment per patient size (includes targeted exams where dose is matched to clinical indication); or iterative reconstruction. Contrast material: OMNI 350; Contrast volume: 100 ml; Contrast route: INTRAVENOUS (IV); COMPARISON: US renal BI* [id number] 04/26/2025 3:04 PM RADIATION DOSE METRICS: Total DLP (mGy-cm): 725.46 FINDINGS: Liver: Unremarkable. No mass. Gallbladder and biliary ducts: Cholelithiasis. Negative for gallbladder wall thickening. Negative for biliary system dilation. Pancreas: Normal. No ductal dilation. Spleen: Normal. No splenomegaly. Adrenal glands: Normal. No mass. Kidneys and ureters: Normal enhancement pattern. No hydronephrosis. Large nonobstructing stone inferior right kidney. Negative for acute perinephric inflammation. Stomach and bowel: Duodenal wall thickening with adjacent inflammatory stranding mostly involving the 2nd portion and to a lesser extent the 3rd portion. Duodenal diverticulum versus ulcer is noted amongst the inflammatory segment best seen axial series 3, image 24 correlated with coronal reconstruction image 32 which measures 19 mm x 18 mm x 18 mm. Negative for pneumatosis intestinalis. Appendix: No evidence of appendicitis. Intraperitoneal space: No organized intraperitoneal fluid collection. Negative for pneumoperitoneum. Vasculature: Plaque in the abdominal aorta wall without aneurysm or dissection. Dilated splenorenal venous shunt. Portal venous system is patent. Lymph nodes: Unremarkable. No enlarged lymph nodes. Urinary bladder: Unremarkable as visualized. Reproductive: Prostatectomy. Bones/joints: Unremarkable. No acute fracture. Soft tissues: Unremarkable. CT/CT abdomen pelvis w con* [id number] IMPRESSION: Nonspecific duodenitis features. Probable duodenal diverticulum which could be incidental, alternatively the inflammation could be related to a duodenal diverticulitis. A large ulcer is not excluded.
[2025-07-15 04:31] LABS: Alanine Aminotransferase 9 U/L (0-41); Albumin Level 3.0 g/dL (3.5-5.2); Alkaline Phosphatase 88 U/L (40-130); Anion Gap 17.3 (5-19); Aspartate Amino Transferase 16 U/L (0-40); Blood Urea Nitrogen 12 mg/dL (8-23); Calcium 9.1 mg/dL (8.5-10.5); Carbon Dioxide 19 mmol/L (22-29); Chloride 102 mmol/L (98-107); Globulin 4.0 g/dL (1.3-4.6); Glucose 94 mg/dL (65-115); Lipase 27 U/L (13-60); Osmolality Calculated 278 mOsm/kg (285-295); Potassium 4.3 mmol/L (3.5-5.1); Sodium 134 mmol/L (136-145); Total Protein 7.0 g/dL (6.6-8.7)
[2025-07-15 04:37] LABS: Creatinine Clr Calc Pharmacy 95.5210
[2025-07-15 04:39] LABS: Lactic Sepsis W/Reflex 5.3 mmol/L (0.5-2.2)
[2025-07-15 04:48] LABS: Reflex Lactate Order REFLEX LACTIC ORDERD
[2025-07-15] MEDS: iohexol 350 mg/mL 500 mL Btl (per mL) IV (04:51)
[2025-07-15] MEDS: pantoprazole 40 mg SDV 80 MG IVP (04:55)
[2025-07-15 05:37] LABS: Glucose Urine UA Negative (Normal); Nitrate Urine Negative (Negative); Specific Gravity, Urine 1.021 (1.005-1.030)
[2025-07-15 05:42] LABS: Add Urine Microscopic? YES
[2025-07-15 06:12] LABS: UA Slide Review UA Slide Review Perf
--- NOTE | 2025-07-15 06:20 | PM.HP ---
Providers/Chief Complaint Admitting Physician: Joslyn Scott MD Primary Care Provider: Demarcus Poole DO Chief Complaint: ABD PAIN History of Present Illness Bernardino Jackson is a 65 year old male currently living at assisted living, smoker, past history of alcohol intake however states he has quit several months ago. He presents to the emergency room today with chief complaints of abdominal discomfort. He states he has been having pain in the epigastric region for the past 4 to 5 days and multiple episodes of vomiting with inability to tolerate any p.o. intake. 2 days ago he had dark tarry stools which she describes as being blood in his stools.no hematemesis. Patient states that he has a history of duodenal ulcer however has not had any endoscopy for the same. Denies any recent weight loss. No chest pain dyspnea palpitations or syncope. He is not on any antiplatelets or anticoagulants. No chronic NSAID use except topical diclofenac. Review of Systems General: Reports: 10 or more systems reviewed and unremarkable except in HPI and below Const: Denies: fever(s), chills or body aches Eyes: Denies: change in vision, blurry vision or photophobia ENMT: Reports: hoarseness; Denies: throat pain, enlarged tonsils, odynophagia or nasal congestion Card: Denies: chest pain, palpitations, irregular heart rhythm, edema, swelling of feet/ankles, lightheadedness, pre-syncope, dyspnea on exertion or orthopnea Resp: Denies: dyspnea, productive cough, non-productive cough, wheezing, stridor, pain on inspiration, change in phlegm color, hemoptysis or chest congestion GI: Denies: abdominal pain, nausea, vomiting, hematemesis, coffee ground emesis, dysphagia, heartburn, diarrhea, constipation, GI cramping, change in stool character, hematochezia or melena : Denies: flank pain, dysuria, urinary frequency, urinary urgency, urinary hesitancy or hematuria Musc: Denies: neck pain, back pain, extremity pain, joint swelling, joint warmth or deformity Neuro: Denies: headache(s), numbness in extremities, weakness in extremities, sensory changes, difficulty walking, frequent falls, dizziness, vertigo, behavioral changes, Slurred speech present or seizure-like activity Psych: Denies: anxiety, depression, suicidal ideation or homicidal ideation Endo: Denies: polyuria, polydipsia, tired all the time, cold intolerance or hot flashes Marc/Lymph: Denies: easy bruising or easy bleeding Medications/Allergies Home Medications ?Medication ?Instructions ?Recorded ?Confirmed ?Last Taken ?Type metformin 1,000 mg tablet 1,000 mg PO BID 11/18/19 05/28/25 05/27/25 History ketoconazole 2 % shampoo See Rx Instructions .Route 02/28/25 05/28/25 05/22/25 History .COMPLEX PRN Skin Irritation ketoconazole 2 % topical cream See Rx Instructions .Route 02/28/25 05/28/25 Unknown History .COMPLEX PRN Skin Irritation acetaminophen 325 mg tablet 650 mg PO TID PRN Pain 04/26/25 05/28/25 05/01/25 History (Tylenol) bisacodyl 10 mg rectal suppository 10 mg [place] DAILY PRN constipation 04/26/25 05/28/25 Unknown History (Dulcolax (bisacodyl)) bisacodyl 5 mg tablet,delayed 10 mg PO DAILY PRN constipation 04/26/25 05/28/25 Unknown History release (Dulcolax (bisacodyl)) diclofenac sodium 1 % topical gel 1 g topical TID 04/26/25 05/28/25 05/28/25 History famotidine 20 mg tablet 20 mg PO DAILY PRN Indigestion 05/28/25 05/28/25 05/27/25 History hydrocodone 5 mg-acetaminophen 325 1 tab PO Q8H PRN Pain 05/28/25 05/28/25 05/28/25 History mg tablet Allergies Allergy/AdvReac Type Severity Reaction Status Date / Time No Known Allergies Allergy Verified 05/28/25 10:17 PFSH Acute PFSH: Medical History History of colon polyps Prostate cancer Liver cirrhosis Insomnia Type 2 diabetes mellitus Hypothyroidism Surgical History H/O prostatectomy History of esophagogastroduodenoscopy Family History Mother Diabetes mellitus, type 2 Social History (Reviewed 07/15/25 @ 06:22 by RANDOLPH Rodriguez Smoking and tobacco/nicotine status: never used tobacco/nicotine Alcohol intake: former Substance/Drug Use: unknown Vitals/I&O/Wt Last Vital Signs Temp 98 F 07/15/25 03:35 Pulse 90 07/15/25 04:56 Resp 20 H 07/15/25 04:00 BP 104/57 07/15/25 04:56 Pulse Ox 99 07/15/25 04:56 Weight last 48 hrs Weight 78.925 kg Physical Exam Narrative: General: No acute distress, AO x3 HEENT: PERRLA, pupils bilaterally equal and reactive, pallors not present Chest: Normal vesicular breath sounds, no added sounds, equal good air entry bilaterally CVS: S1-S2 regular, no murmurs, no tachycardia, no gallops, no rubs Abdomen: Soft, nontender, no organomegaly, bowel sounds present Neuro: No focal deficits, no facial deformity, AO x3, power 5/5 in all limbs Data 07/15/25 03:49 07/15/25 03:49 Other Labs: Radiology Impressions Abdomen/Pelvis CT 07/15/25 04:27 IMPRESSION: Nonspecific duodenitis features. Probable duodenal diverticulum which could be incidental, alternatively the inflammation could be related to a duodenal diverticulitis. A large ulcer is not excluded. Laboratory Results WBC 6.19 10^3/uL (3.29-11.43) 07/15/25 03:49 RBC 3.38 10^6/uL (3.85-5.65) L 07/15/25 03:49 Hgb 8.70 g/dL (11.27-16.99) L 07/15/25 03:49 Hct 28.5 % (37-53) L 07/15/25 03:49 MCV 84.3 fl (82-101) 07/15/25 03:49 MCH 25.7 pg (27-33) L 07/15/25 03:49 MCHC 30.5 g/dL (30-55) 07/15/25 03:49 RDW 15.1 % (12.1-15.1) 07/15/25 03:49 Plt Count 165 10^3/cmm (157-399) 07/15/25 03:49 MPV 9.5 fL (7.4-10.4) 07/15/25 03:49 Neut % (Auto) 53.8 % 07/15/25 03:49 Lymph % (Auto) 33.0 % 07/15/25 03:49 [place] % (Auto) 9.5 % 07/15/25 03:49 Eos % (Auto) 2.4 % 07/15/25 03:49 Baso % (Auto) 0.8 % 07/15/25 03:49 Neut # (Auto) 3.33 10^3/uL (1.8-7.7) 07/15/25 03:49 Lymph # (Auto) 2.0 10^3/uL (0.8-4.8) 07/15/25 03:49 [place] # (Auto) 0.6 10^3/uL (0.2-0.9) 07/15/25 03:49 Eos # (Auto) 0.2 10^3/uL (0.0-0.8) 07/15/25 03:49 Baso # (Auto) 0.1 10^3/uL (0.0-0.1) 07/15/25 03:49 Nucleated RBC % (auto) 0 % 07/15/25 03:49 Nucleated RBCs # 0.0 /100WBC 07/15/25 03:49 Sodium 134 mmol/L (136-145) L 07/15/25 03:49 Potassium 4.3 mmol/L (3.5-5.1) 07/15/25 03:49 Chloride 102 mmol/L (98-107) 07/15/25 03:49 Carbon Dioxide 19 mmol/L (22-29) L 07/15/25 03:49 Anion Gap 17.3 (5-19) 07/15/25 03:49 BUN 12 mg/dL (8-23) 07/15/25 03:49 Creatinine 0.5 mg/dL (0.7-1.2) L 07/15/25 03:49 GFR Calculation 165.9 mL/min (90-130) H 07/15/25 03:49 Glucose 94 mg/dL (65-115) 07/15/25 03:49 Calculated Osmolality 278 mOsm/kg (285-295) L 07/15/25 03:49 Lactic Acid 5.3 mmol/L (0.5-2.2) H* 07/15/25 03:49 Calcium 9.1 mg/dL (8.5-10.5) 07/15/25 03:49 Total Bilirubin 0.6 mg/dL (0.15-1.2) 07/15/25 03:49 AST 16 U/L (0-40) 07/15/25 03:49 ALT 9 U/L (0-41) 07/15/25 03:49 Alkaline Phosphatase 88 U/L (40-130) 07/15/25 03:49 C-Reactive Protein 4.9 mg/L (0.0-4.9) 07/15/25 03:49 Total Protein 7.0 g/dL (6.6-8.7) 07/15/25 03:49 Albumin 3.0 g/dL (3.5-5.2) L 07/15/25 03:49 Globulin 4.0 g/dL (1.3-4.6) 07/15/25 03:49 Lipase 27 U/L (13-60) 07/15/25 03:49 Urine Color Yellow (Yellow) 07/15/25 05:20 Urine Appearance Cloudy (CLEAR) A 07/15/25 05:20 Urine pH 5.5 (5-7) 07/15/25 05:20 Ur Specific [place] 1.021 (1.005-1.030) 07/15/25 05:20 Urine Protein Negative (Negative) 07/15/25 05:20 Urine Glucose (UA) Negative (Normal) 07/15/25 05:20 Urine Ketones Negative (Negative) 07/15/25 05:20 Urine Blood Negative (Negative) 07/15/25 05:20 Urine Nitrate Negative (Negative) 07/15/25 05:20 Urine Bilirubin Negative (Negative) 07/15/25 05:20 Urine Urobilinogen 1.0 mg/dL (Negative) 07/15/25 05:20 Ur Leukocyte Esterase 2+ (Negative) A 07/15/25 05:20 Urine RBC 0-2 /hpf (0-2) 07/15/25 05:20 Urine WBC 51-100 /hpf (0-5) H 07/15/25 05:20 Ur Squamous Epith Cells 0-5 /hpf (0-5) 07/15/25 05:20 Amorphous Sediment Not Reportable 07/15/25 05:20 Urine Bacteria 4+ /hpf (NONE) H 07/15/25 05:20 Hyaline Casts 0.81 /lpf 07/15/25 05:20 A&P Assessment and plan 1. Upper GI bleed: 2. Blood loss anemia: 3. Urinary tract infection: 4. Increased lactic acid level: Plan: (1) Acute upper gastrointestinal bleedin-year-old male with a past medical history as above presenting with upper GI bleeding with reported past h/o duodenal ulcer CT of the abdomen and pelvis is showing Nonspecific duodenitis features, possible duodenal diverticulitis vs A large ulcer is not excluded. He has never had EGD .in the past reports kim 2 day ago. Check FOBT today. he has received 80 mg IV Protonix in the emergency room, start Protonix 40 IV twice daily Carafate 1 g twice daily Trend hemoglobin every 6 hours General Surgery consulted, anticipate may require endoscopic evaluation N.p.o. as anticipate endoscopy. (2) Acute blood loss anemia: Hemoglobin currently 8.7, down from 12.6 one month ago Trend H&H Q6H Hemoglobin goal of at least 7, transfuse if less than this number (3) Lactic acidosis : Suspect related to dehydration from volume loss, GI bleed CT of the abdomen and pelvis without any acute infective pathology identified. (4) UTI Urine analysis with 51-100 WBCs, 2+ leukocyte esterase. In reviewing his past number it appears patient may have chronic cystitis. He is not symptomatic in this regard. There is no leukocytosis. No other signs of sepsis. IV fluid normal saline at 75 cc an hour Do not believe UTI to be the cause of lactic acidosis at this time as patient has no other signs of sepsis. DVT prophylaxis: SCDs only. Anticoagulation contraindicated due to GI bleed Full code PDMP PDMP Reviewed: Not Reviewed Attestations Medical Necessity Statement*: Greater than 2 midnight stay is anticipated Coding Level of Care Code Acute Code for Chg Fwd High MDM includes number and complexity of problems actively addressed during encounter, amount and/or complexity of data reviewed/ordered and described risk of complication, morbidity or mortality of management as documented Diagnoses Upper GI bleed K92.2 Blood loss anemia D50.0 Urinary tract infection N39.0 Increased lactic acid level R79.89
[2025-07-15] MEDS: pantoprazole 40 mg SDV IVP ×2 (07:07→18:12)
--- NOTE | 2025-07-15 09:38 | PC.NURSE ---
PT BLOOD PRESSURE TRENDING DOWNWARD. DR. VANCE NOTIFIED. VERBAL ORDERS FOR FLUID BOLUS.
[2025-07-15 10:01] LABS: Hematocrit 25.2 % (37-53); Hemoglobin 7.50 g/dL (11.27-16.99)
[2025-07-15 10:27] LABS: Lactic Acid level (Lactate) 3.7 mmol/L (0.5-2.2)
--- NOTE | 2025-07-15 12:30 | PM.CONSULT ---
Providers/Reason For Consult Consulting Physician/Specialty*: Nik Bojorquez DO , Surgery Reason for Consult*: Upper GI bleed Attending Physician: Spencer Ramírez MD Primary Care Provider: Demarcus Poole DO History of Present Illness History of Present Illness Bernardino Jackson is a 65 year old male with chief complaint of epigastric pain and recurrent nausea and vomiting. He has a significant history for duodenal ulcers and his last EGD was approximately 1 year ago. He states he felt a flareup of these ulcers coming on several days ago and has been having recurrent nausea and vomiting and unable to keep much down since then. He denies any he has been having regular bowel movements and over the last several days has noticed some dark Tarry stools but these have lightened up over the last 24 hours. On examination and consultation today he feels much better after receiving some IV fluids and supportive care in the emergency room. He had a CT scan done in the ER which was negative for any perforation but did show some thickening of the duodenal wall with questionable duodenal diverticulum versus cratered ulcer. He is currently NPO. He did have a drop in his hemoglobin from 12 several months ago to 7.5 this morning around 930. His vitals been stable and he denies any significant abdominal pain currently. He denies any chest pain. He does have 1/2 pack/day smoking history but denies any alcohol usage. He is unsure of any history of H. pylori on his previous scopes. He received IV Protonix as well as Carafate when he came to the emergency department. No other complaints at this time. Review of Systems General: Reports: 10 or more systems reviewed and unremarkable except in HPI and below Const: Denies: fever(s), chills or body aches Eyes: Denies: change in vision, blurry vision or photophobia ENMT: Reports: hoarseness; Denies: throat pain, enlarged tonsils, odynophagia or nasal congestion Card: Denies: chest pain, palpitations, irregular heart rhythm, edema, swelling of feet/ankles, lightheadedness, pre-syncope, dyspnea on exertion or orthopnea Resp: Denies: dyspnea, productive cough, non-productive cough, wheezing, stridor, pain on inspiration, change in phlegm color, hemoptysis or chest congestion GI: Denies: abdominal pain, nausea, vomiting, hematemesis, coffee ground emesis, dysphagia, heartburn, diarrhea, constipation, GI cramping, change in stool character, hematochezia or melena : Denies: flank pain, dysuria, urinary frequency, urinary urgency, urinary hesitancy or hematuria Musc: Denies: neck pain, back pain, extremity pain, joint swelling, joint warmth or deformity Neuro: Denies: headache(s), numbness in extremities, weakness in extremities, sensory changes, difficulty walking, frequent falls, dizziness, vertigo, behavioral changes, Slurred speech present or seizure-like activity Psych: Denies: anxiety, depression, suicidal ideation or homicidal ideation Endo: Denies: polyuria, polydipsia, tired all the time, cold intolerance or hot flashes Marc/Lymph: Denies: easy bruising or easy bleeding Medications/Allergies Home Medications ?Medication ?Instructions ?Recorded ?Confirmed ?Last Taken ?Type metformin 1,000 mg tablet 1,000 mg PO BID 11/18/19 07/15/25 07/14/25 20:00 History ketoconazole 2 % shampoo See Rx Instructions .Route 02/28/25 07/15/25 07/12/25 06:35 History .COMPLEX PRN Skin Irritation ketoconazole 2 % topical cream See Rx Instructions .Route 02/28/25 07/15/25 06/22/25 07:30 History .COMPLEX PRN Skin Irritation acetaminophen 325 mg tablet 650 mg PO TID PRN Pain 04/26/25 07/15/25 07/06/25 12:30 History (Tylenol) bisacodyl 10 mg rectal suppository 10 mg [place] DAILY PRN constipation 04/26/25 07/15/25 Unknown History (Dulcolax (bisacodyl)) bisacodyl 5 mg tablet,delayed 10 mg PO DAILY PRN constipation 04/26/25 07/15/25 Unknown History release (Dulcolax (bisacodyl)) diclofenac sodium 1 % topical gel 1 g topical TID 04/26/25 07/15/25 07/14/25 01:25 History famotidine 20 mg tablet 20 mg PO DAILY PRN Indigestion 05/28/25 07/15/25 07/06/25 12:30 History hydrocodone 5 mg-acetaminophen 325 1 tab PO Q8H PRN Pain 07/07/15/25 07/09/25 11:35 History mg tablet aluminum-mag hydroxide-simethicone 10 ml PO QID PRN constapation 07/15/25 07/15/25 07/13/25 03:25 History 200 mg-200 mg-20 mg/5 mL oral susp (Angy-Lanta) eszopiclone 1 mg tablet (Lunesta) 1 mg PO BEDTIME 07/15/25 07/15/25 07/14/25 20:00 History gabapentin 300 mg capsule 300 mg PO TID 07/15/25 07/15/25 07/14/25 20:00 History lactulose 10 gram/15 mL oral 30 ml PO BID 07/15/25 07/15/25 07/13/25 19:45 History solution Allergies Allergy/AdvReac Type Severity Reaction Status Date / Time No Known Allergies Allergy Verified 05/28/25 10:17 Current Medications Generic Name Dose Route Start Last Admin Trade Name Freq PRN Reason Stop Dose Admin Sodium Chloride 1,000 mls @ 75 mls/hr 07/15/25 09:12 07/15/25 10:41 Sodium Chloride 0.9% IV 75 mls/hr .[id number] TERRENCE Infusion Pantoprazole Sodium 40 mg 07/15/25 06:45 07/15/25 07:07 Pantoprazole 40 Mg Sdv IVP 40 mg Q12H TERRENCE Administration Pantoprazole Sodium 40 mg 07/15/25 09:12 07/15/25 09:22 Pantoprazole 40 Mg Sdv IVP Not Given Q12H TERRENCE Sucralfate 1 gm 07/15/25 07:00 07/15/25 11:28 Sucralfate 1 Gm Tablet PO 1 gm AC&BEDTIME TERRENCE Administration PFSH Acute PFSH: Medical History (Updated 07/15/25 @ 06:25 by Joslyn Scott MD) History of colon polyps Prostate cancer Liver cirrhosis Insomnia Type 2 diabetes mellitus Hypothyroidism Surgical History H/O prostatectomy History of esophagogastroduodenoscopy Family History Mother Diabetes mellitus, type 2 Social History (Reviewed 07/15/25 @ 06:22 by RANDOLPH Rodriguez Smoking and tobacco/nicotine status: never used tobacco/nicotine Alcohol intake: former Substance/Drug Use: unknown Vitals/I&O/Wt Last Vital Signs Temp 97.8 F 07/15/25 11:18 Pulse 83 07/15/25 11:18 Resp 16 07/15/25 11:18 BP 90/60 07/15/25 11:18 Pulse Ox 97 07/15/25 11:18 O2 Del Method Room Air 07/15/25 11:18 07/14/25 07/15/25 07/15/25 22:59 06:59 14:59 Intake Total 4389.00 / 4389.00 Balance 4389.00 / 4389.00 Weight last 48 hrs Weight 180 lb 4.8 oz Weight 174 lb Physical Exam Narrative: General: No acute distress, AO x3 HEENT: PERRLA, pupils bilaterally equal and reactive, pallors not present Chest: Normal vesicular breath sounds, no added sounds, equal good air entry bilaterally CVS: S1-S2 regular, no murmurs, no tachycardia, no gallops, no rubs Abdomen: Soft, nontender, no organomegaly, bowel sounds present Neuro: No focal deficits, no facial deformity, AO x3, power 5/5 in all limbs Data 07/15/25 09:34 07/15/25 03:49 A&P Assessment and plan 1. Upper GI bleed: Upper GI bleed likely secondary to duodenal ulcer. Plan : No acute surgical intervention at this time. Maintain n.p.o. for now and we will check serial hemoglobins every 12 hours. Continue IV Protonix 40 mg twice daily and Carafate every 6 for the ulcers. We just discussed tobacco cessation and how important it is to help healing with his duodenal ulcers. If he has any drop in his hemoglobin or persistent symptoms throughout the day we will plan for an Plan: Upper GI bleed likely secondary to duodenal ulcer. Plan : No acute surgical intervention at this time. Maintain n.p.o. for now and we will check serial hemoglobins every 12 hours. Continue IV Protonix 40 mg twice daily and Carafate every 6 for the ulcers. We just discussed tobacco cessation and how important it is to help healing with his duodenal ulcers. If he has any drop in his hemoglobin or persistent symptoms throughout the day we will plan for an EGD tomorrow morning to evaluate further and to make sure there is no active bleeding. Continue supportive care per hospitalist team. PDMP PDMP Reviewed: Not Reviewed Coding Level of Care Code 60538 Diagnoses Upper GI bleed K92.2
[2025-07-15 13:07] LABS: INR 1.40 (0.8-1.2); Prothrombin Time 18.00 SECONDS (12.1-14.9)
[2025-07-15 15:56] LABS: Hematocrit 25.3 % (37-53); Hemoglobin 7.80 g/dL (11.27-16.99)
[2025-07-15 16:30] LABS: Iron 16 ug/dL (59-158); Total Iron Binding Capacity 246 mcg/dl; Unsaturated Iron Binding 230 ug/dL (112-347)
[2025-07-15 21:27] LABS: Hematocrit 24.0 % (37-53); Hemoglobin 7.50 g/dL (11.27-16.99)
[2025-07-16] VITALS (9 sets, daily range): BP systolic 93–126; BP diastolic 58–68; PULSE 81–97; RESP 15–19; TEMP 36.3–36.9; O2SAT 94–100
[2025-07-16 04:49] LABS: Hematocrit 26.3 % (37-53); Hemoglobin 7.30 g/dL (11.27-16.99); Mean Corpuscular HGB Conc 27.8 g/dL (30-55); Mean Corpuscular Hemoglobin 25.5 pg (27-33); Mean Corpuscular Volume 92.0 fl (82-101); Nucleated Red Blood Cells % 0 %; Platelet Count 115 10^3/cmm (157-399); Red Blood Count 2.86 10^6/uL (3.85-5.65); White Blood Count 2.83 10^3/uL (3.29-11.43)
[2025-07-16 08:08] LABS: Alanine Aminotransferase 8 U/L (0-41); Albumin Level 2.4 g/dL (3.5-5.2); Alkaline Phosphatase 71 U/L (40-130); Anion Gap 14.8 (5-19); Aspartate Amino Transferase 17 U/L (0-40); Blood Urea Nitrogen 9 mg/dL (8-23); Calcium 7.5 mg/dL (8.5-10.5); Carbon Dioxide 19 mmol/L (22-29); Chloride 109 mmol/L (98-107); Creatinine Clr Calc Pharmacy 96.2110; Globulin 3.4 g/dL (1.3-4.6); Glucose 87 mg/dL (65-115); Osmolality Calculated 286 mOsm/kg (285-295); Potassium 3.8 mmol/L (3.5-5.1); Sodium 139 mmol/L (136-145); Total Protein 5.8 g/dL (6.6-8.7)
[2025-07-16] MEDS: pantoprazole 40 mg SDV IVP ×2 (08:54→21:04)
--- NOTE | 2025-07-16 17:23 | PM.DCS ---
Discharge Providers Date of Admission: 07/15/25 05:48 Date of Discharge: July 16, 2025 Attending Provider at Admission: Joslyn Scott MD Attending Provider at Discharge: Spencer Ramírez MD Primary Care Provider: Demarcus Poole DO Diagnoses at Discharge Discharge Diagnosis 1. Upper GI bleed: Details from hospital stay: This has resolved in regards to acute bleeding he tolerated clear liquid diet advance to soft mechanical diet and to regular diet. Protonix twice daily for 15 days along with Carafate then Protonix alone daily indefinitely. Follow-up with Dr. Bojorquez outpatient for endoscopy consideration 2. Blood loss anemia: Details from hospital stay: Resume regular diet with iron replacement for a month Reason for Visit Reason for Visit: ABD PAIN Brief History: Bernardino Jackson is a 65 year old male currently living at assisted living, smoker, past history of alcohol intake however states he has quit several months ago. He presents to the emergency room today with chief complaints of abdominal discomfort. He states he has been having pain in the epigastric region for the past 4 to 5 days and multiple episodes of vomiting with inability to tolerate any p.o. intake. 2 days ago he had dark tarry stools which she describes as being blood in his stools.no hematemesis. Patient states that he has a history of duodenal ulcer however has not had any endoscopy for the same. Denies any recent weight loss. No chest pain dyspnea palpitations or syncope. He is not on any antiplatelets or anticoagulants. No chronic NSAID use except topical diclofenac. Hospital Course Hospital Course Patient was admitted and had no further nausea or vomiting. He had no melena and his hematocrit stabilized and then started to climb. Patient was seen by Dr. Nik Bojorquez DO general surgeon and because the patient had no further bleeding he did not need to undergo endoscopy here. Patient's last endoscopy was years ago. He has a history of alcohol abuse and cirrhotic morphology to his liver seen on 02/12/2023 ultrasound of the liver. He has previously been admitted for alcoholic hepatic encephalopathy before. 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 Patient states that his eldest son works as a supervisor sign shop for [employer]. His grandson who is his daughter's son they took custody and raised since age 4 works in [employer] industry. Patient states that his younger son and daughter both got into methamphetamines and he has not been in touch with them. States that he has good relationship with his grandson and eldest son as above. Patient is interested in getting back into his hobbies though he currently lives at [facility]. He downplayed the alcohol history which I have gleaned from medical records. Physical Exam Narrative: General well-developed well-nourished male in no acute cardiopulmonary stress CV regular rate and rhythm Lungs clear to auscultation bilaterally Abdomen positive bowel tones soft nontender Calves no tenderness with cords or pretibial edema Mentation alert and oriented times person place date time and situation Discharge Data Studies Completed and Pending Completed Studies During Hospitalization Category Date Time Status CT abdomen pelvis w con* [id number] Urgent Cat Scan 07/15/25 04:27 Completed Pending at discharge Category Date Time Status Urine Culture Stat Lab 07/15/25 05:20 Results Radiology Impressions Abdomen/Pelvis CT 07/15/25 04:27 IMPRESSION: Nonspecific duodenitis features. Probable duodenal diverticulum which could be incidental, alternatively the inflammation could be related to a duodenal diverticulitis. A large ulcer is not excluded. Laboratory Results WBC 2.83 10^3/uL (3.29-11.43) L 07/16/25 04:18 RBC 2.86 10^6/uL (3.85-5.65) L 07/16/25 04:18 Hgb 7.30 g/dL (11.27-16.99) L 07/16/25 04:18 Hct 26.3 % (37-53) L 07/16/25 04:18 MCV 92.0 fl (82-101) 07/16/25 04:18 MCH 25.5 pg (27-33) L 07/16/25 04:18 MCHC 27.8 g/dL (30-55) L D 07/16/25 04:18 RDW 15.5 % (12.1-15.1) H 07/16/25 04:18 Plt Count 115 10^3/cmm (157-399) L D 07/16/25 04:18 MPV 10.0 fL (7.4-10.4) 07/16/25 04:18 Neut % (Auto) 48.4 % 07/16/25 04:18 Lymph % (Auto) 39.2 % 07/16/25 04:18 [place] % (Auto) 8.5 % 07/16/25 04:18 Eos % (Auto) 2.8 % 07/16/25 04:18 Baso % (Auto) 0.7 % 07/16/25 04:18 Neut # (Auto) 1.37 10^3/uL (1.8-7.7) L 07/16/25 04:18 Lymph # (Auto) 1.1 10^3/uL (0.8-4.8) 07/16/25 04:18 [place] # (Auto) 0.2 10^3/uL (0.2-0.9) 07/16/25 04:18 Eos # (Auto) 0.1 10^3/uL (0.0-0.8) 07/16/25 04:18 Baso # (Auto) 0.0 10^3/uL (0.0-0.1) 07/16/25 04:18 Nucleated RBC % (auto) 0 % 07/16/25 04:18 Nucleated RBCs # 0.0 /100WBC 07/16/25 04:18 PT 18.00 SECONDS (12.1-14.9) H 07/15/25 12:47 INR 1.40 (0.8-1.2) H 07/15/25 12:47 Sodium 139 mmol/L (136-145) 07/16/25 07:43 Potassium 3.8 mmol/L (3.5-5.1) 07/16/25 07:43 Chloride 109 mmol/L (98-107) H 07/16/25 07:43 Carbon Dioxide 19 mmol/L (22-29) L 07/16/25 07:43 Anion Gap 14.8 (5-19) 07/16/25 07:43 BUN 9 mg/dL (8-23) 07/16/25 07:43 Creatinine 0.6 mg/dL (0.7-1.2) L 07/16/25 07:43 GFR Calculation 134.4 mL/min (90-130) H 07/16/25 07:43 Glucose 87 mg/dL (65-115) 07/16/25 07:43 Calculated Osmolality 286 mOsm/kg (285-295) 07/16/25 07:43 Lactic Acid 5.3 mmol/L (0.5-2.2) H* 07/15/25 03:49 Lactic Acid (Sepsis) 3.7 mmol/L (0.5-2.2) H 07/15/25 09:34 Calcium 7.5 mg/dL (8.5-10.5) L 07/16/25 07:43 Iron 16 ug/dL (59-158) L 07/15/25 03:49 TIBC 246 mcg/dl 07/15/25 03:49 % Saturation 6.5 % (20-50) L 07/15/25 03:49 Unsat Iron Binding 230 ug/dL (112-347) 07/15/25 03:49 Total Bilirubin 0.7 mg/dL (0.15-1.2) 07/16/25 07:43 AST 17 U/L (0-40) 07/16/25 07:43 ALT 8 U/L (0-41) 07/16/25 07:43 Alkaline Phosphatase 71 U/L (40-130) 07/16/25 07:43 C-Reactive Protein 4.9 mg/L (0.0-4.9) 07/15/25 03:49 Total Protein 5.8 g/dL (6.6-8.7) L 07/16/25 07:43 Albumin 2.4 g/dL (3.5-5.2) L 07/16/25 07:43 Globulin 3.4 g/dL (1.3-4.6) 07/16/25 07:43 Lipase 27 U/L (13-60) 07/15/25 03:49 Urine Color Yellow (Yellow) 07/15/25 05:20 Urine Appearance Cloudy (CLEAR) A 07/15/25 05:20 Urine pH 5.5 (5-7) 07/15/25 05:20 Ur Specific [place] 1.021 (1.005-1.030) 07/15/25 05:20 Urine Protein Negative (Negative) 07/15/25 05:20 Urine Glucose (UA) Negative (Normal) 07/15/25 05:20 Urine Ketones Negative (Negative) 07/15/25 05:20 Urine Blood Negative (Negative) 07/15/25 05:20 Urine Nitrate Negative (Negative) 07/15/25 05:20 Urine Bilirubin Negative (Negative) 07/15/25 05:20 Urine Urobilinogen 1.0 mg/dL (Negative) 07/15/25 05:20 Ur Leukocyte Esterase 2+ (Negative) A 07/15/25 05:20 Urine RBC 0-2 /hpf (0-2) 07/15/25 05:20 Urine WBC 51-100 /hpf (0-5) H 07/15/25 05:20 Ur Squamous Epith Cells 0-5 /hpf (0-5) 07/15/25 05:20 Amorphous Sediment Not Reportable 07/15/25 05:20 Urine Bacteria 4+ /hpf (NONE) H 07/15/25 05:20 Hyaline Casts 0.81 /lpf 07/15/25 05:20 Vitals Last Vital Signs Temp 97.7 F 07/16/25 11:32 Pulse 83 07/16/25 11:32 Resp 16 07/16/25 11:32 BP 96/60 07/16/25 11:32 Pulse Ox 95 07/16/25 11:32 O2 Del Method Room Air 07/16/25 11:32 Discharge Plan Discharge Patient Disposition: Home Condition: Stable Prescriptions: New sucralfate 1 gram Tablet 1 g PO AC&BEDTIME Qty: 60 0RF Rx Instructions: till gone pantoprazole 40 mg tablet,delayed release (DR/EC) 40 mg PO BID Qty: 60 0RF ferrous sulfate 324 mg (65 mg iron) tablet,delayed release (DR/EC) 324 mg PO BID Qty: 60 0RF Continued metformin 1,000 mg Tablet 1,000 mg PO BID hydrocodone-acetaminophen 5-325 mg tablet 1 tab PO Q8H PRN (Reason: Pain) ketoconazole 2 % shampoo See Rx Instructions .ROUTE .COMPLEX PRN (Reason: Skin Irritation) Rx Instructions: LATHER ONTO SCALP AND FACE 2-3 TIMES A WEEK. ALLOW TO SIT 5 MINUTES BEFORE RINSING. ketoconazole 2 % cream See Rx Instructions .ROUTE .COMPLEX PRN (Reason: Skin Irritation) Rx Instructions: APPLY TWICE DAILY TO RED SCALY AREAS ON FACE NEEDED. acetaminophen [Tylenol] 325 mg Tablet 650 mg PO TID PRN (Reason: Pain) bisacodyl [Dulcolax (bisacodyl)] 10 mg Suppository 10 mg [place] DAILY PRN (Reason: constipation ) bisacodyl [Dulcolax (bisacodyl)] 5 mg Tablet,Delayed Release (Dr/Ec) 10 mg PO DAILY PRN (Reason: constipation ) diclofenac sodium 1 % Gel 1 g TOPICAL TID Rx Instructions: apply to single elbow, wrist or hand; for hand includes palm/fingers/back of hand gabapentin 300 mg capsule 300 mg PO TID alum-mag hydroxide-simeth [Angy-Lanta] 200-200-20 mg/5 mL Suspension 10 ml PO QID PRN (Reason: constapation) Rx Instructions: administer between meals and at bedtime lactulose 10 gram/15 mL solution 30 ml PO BID eszopiclone [Lunesta] 1 mg Tablet 1 mg PO BEDTIME Discontinued famotidine 20 mg tablet 20 mg PO DAILY PRN (Reason: Indigestion) Discharge Order = DC NOW: Discharge Order (Routine); Ordered 07/16/25 Ordered By: Spencer Ramírez Referrals: Nik Bojorquez DO [Physician, General Surgery] - 2 weeks Problems: Upper GI bleed; Blood loss anemia Demarcus Poole DO [Primary Care Provider, Internal Medicine] Discharge Diet: Advance as tolerated and GI Soft Discharge Activity: Resume usual activity Patient Instructions: Opioid Safety, Patient Portal & Janine Instructions Activity Restrictions/Additional Instructions: Take meds as prescribed including Protonix twice a day for 14 days then once daily thereafter. Take Carafate only until it runs out Pepcid is less effective and as it was written you are only taking it as needed so not every day which is definitely less effective than Protonix in that case Do not smoke or drink alcohol as that makes ulcers worse Follow-up with the surgeon for endoscopy Return to hospital if you have acute bright red blood per vomit or rectum Discharge Attestations Time Spent in Discharge Care*: greater than 30 min Time Spent in Smoking Cessation: Not a smoker Quality Metrics Clinical Quality Measures [ No reported AMI, CVA or VTE this stay] Coding Level of Care Code 62851 Diagnoses Upper GI bleed K92.2 Blood loss anemia D50.0 Time Spent (min) 40
--- NOTE | 2025-07-16 17:52 | P.PN_ITS ---
Subjective 2 Subjective: Patient seen and examined. Doing much better this morning with no complaints. Denies any dark or maroon bowel movements. He is having bowel movements and passing gas. Tolerating full liquid diet. Denies any nausea or vomiting. No pain at this time. No acute events overnight. Hemoglobin stable since his admission. Vitals/I&O/Wt Last Vital Signs Temp 97.7 F 07/16/25 11:32 Pulse 83 07/16/25 11:32 Resp 16 07/16/25 11:32 BP 96/60 07/16/25 11:32 Pulse Ox 95 07/16/25 11:32 O2 Del Method Room Air 07/16/25 11:32 07/16/25 07/16/25 07/16/25 06:59 14:59 22:59 Intake Total 1500 / 1500 Output Total 400 / 2050 950 / 950 Balance -400 / 3092.75 550 / 550 Weight last 48 hrs Weight 177 lb Weight 180 lb 4.8 oz Weight 174 lb Physical Exam 2 Narrative: General well-developed well-nourished male in no acute cardiopulmonary stress CV regular rate and rhythm Lungs clear to auscultation bilaterally Abdomen positive bowel tones soft nontender Calves no tenderness with cords or pretibial edema Mentation alert and oriented times person place date time and situation Data 07/16/25 04:18 07/16/25 07:43 Micro: Microbiology 07/15/25 05:20 Urine Culture - Preliminary Urine,Clean Catch Gram Negative Rods A&P Assessment and plan 1. Blood loss anemia: No bleeding noted. Hemoglobin is stable. No interventions needed at this time. Tolerating a diet. Continue PPI twice daily and Carafate for at least 3 months. Will likely need another repeat upper endoscopy as an outpatient with his normal gastroenterology team. Okay for discharge from my standpoint. Family would like social work consulted to help with planning after discharge and help with management in the halfway. 2. Upper GI bleed: PDMP PDMP Reviewed: Not Reviewed Attestations 2 Medical Necessity Statement*: Continued hospitalization for social work management and optimization for discharge Coding Level of Care Code Acute Code for Chg Fwd Diagnoses Blood loss anemia D50.0 Upper GI bleed K92.2
--- NOTE | 2025-07-16 18:06 | PC.NURSE ---
This nurse contacted [facility] because discharge orders were just placed to see if patient could come today or if it was too late. The nurse I spoke to stated it was too late to take an admission, but they could take patient first thing in the morning. Dr. Ramírez notified.
[2025-07-17 03:45] VITALS: BP 102/58; PULSE 92; RESP 18; TEMP 36.3; O2SAT 98
[2025-07-17 04:01] VITALS: PULSE 93
[2025-07-17 07:12] VITALS: BP 91/56; PULSE 79; RESP 16; TEMP 36.8; O2SAT 96
--- NOTE | 2025-07-17 09:15 | PC.CHAP ---
Pastoral Care Encounter/Spiritual Assessment Type of Contact [] Declined assistant press operator offset visit [] Patient/Family/Request visit [] Outpatient visit [] Follow-up visit [] Physician referral [] Code/Alert [] Routine visit [] Staff referral [] Actively dying [] Patient sleeping [] Family support [] [] Out of room [] Palliative care [] [x] Receiving care in room [] Pre-surgical visit [] Trauma [] Long length of stay [] ICU visit [] Other: Relational/Emotional Strength [] Patient feels connected with others/family/visitors/staff [] Distress [] Loneliness/isolation [] Abandonment Spirituality of Patient [] Person of Riya [] Attends Zoroastrian of their Riya [] Believes in Prayer [] Reads Bible or Restorationism materials [] There are Spiritual issues to be addressed Finish Specialist Interventions [] Prayer [] Active listening [] Non-anxious presence [] Spiritual/emotional support [] Crisis/trauma care [] Spiritual counseling [] Bereavement support [] Provided bereavement packet [] Provided Bible/devotional materials [] Provided toy/stuffed animal, coloring book to patient or family member [] Provided Communion [] Anointing/[place] [] Salvation [] Completed spiritual assessment [] Other: Impact on Illness or Injury [] Angry [] Fearful [] Anxious [] Often cries [] Exhaustion [] Unable to work [] Unable to attend episcopal [] Unable to walk/stand [] Unable to read [] Unable to drive [] Unable to eat/drink [] Unable to sleep [] Unable to be with family [] Patient intubated [] Other: Summary Time spent with patient
[2025-07-17] MEDS: pantoprazole 40 mg SDV IVP (09:20)
--- NOTE | 2025-07-17 10:37 | P.PN_ITS ---
Subjective 2 Subjective: Patient is discharged delayed due to the snf not accepting him last night. Patient denies nausea or vomiting he has not had another bowel movement since I saw him yesterday. He denies abdominal pain. Patient states his son gets carried away but I counseled patient that with his multiple overdoses and self-destructive behavior I concur with patient's need to be supervised. I recommended that he go to counseling as he remains per his report significant depressed following of his to whom he was 40 Vitals/I&O/Wt Last Vital Signs Temp 98.2 F 07/17/25 07:12 Pulse 79 07/17/25 07:12 Resp 16 07/17/25 07:12 BP 91/56 07/17/25 07:12 Pulse Ox 96 07/17/25 07:12 O2 Del Method Room Air 07/17/25 07:12 07/16/25 07/17/25 07/17/25 22:59 06:59 14:59 Intake Total 720 / 2220 1211.25 / 3431.25 120 / 120 Output Total 300 / 1250 450 / 1700 350 / 350 Balance 420 / 970 761.25 / 1731.25 -230 / -230 Weight last 48 hrs Weight 80.467 kg Weight 80.286 kg Weight 81.783 kg Physical Exam 2 Narrative: General well-developed well-nourished male in no acute cardiopulmonary stress CV regular rate and rhythm Lungs clear to auscultation bilaterally Abdomen positive bowel tones soft nontender Mentation alert and oriented times person place date time and situation Data 07/16/25 04:18 07/16/25 07:43 Micro: Microbiology 07/15/25 05:20 Urine Culture - Final Urine,Clean Catch Escherichia coli A&P Assessment and plan 1. Upper GI bleed: Continue with Protonix twice daily for 15 days then daily as well as Carafate for 15 days 2. Blood loss anemia: Anemia is improving PDMP PDMP Reviewed: Not Reviewed Attestations 2 Medical Necessity Statement*: Patient is awaiting discharge today Coding Level of Care Code 97224 Diagnoses Upper GI bleed K92.2 Blood loss anemia D50.0 Time Spent (min) 20
--- NOTE | 2025-07-17 10:40 | PC.SOCIAL ---
IMM Update Updated pt on IMM. No questions voiced. Provided pt a copy. Initialed, dated, & timed a copy & placed in chart.
[2025-07-17 10:55] VITALS: BP 91/56; PULSE 86; RESP 17; TEMP 36.8; O2SAT 97
[2025-07-17 11:09] VITALS: BP 91/56; PULSE 86; RESP 17; TEMP 36.8; O2SAT 97
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
--- OUTSIDE RECORDS SUMMARY | 2025-07-18 09:14 | XMS_ITS | Encounter Summary ---
Author Organization [facility] Address [address] [place] [address] Care Team Providers Care Grades 1 Thru 6 Visiting Teacher Name Role Phone Sanam Sosa DO Primary Care Provider Encounter Details Date Type Department Care Team (Latest Contact Info) Description 11/05/2005 Outpatient Historical [facility]- [place] [address] [place] [address] Maximo Fox, FURNITURE SALES ASSOCIATE [address], [place] [address] BRONCHITIS NOS (Primary Dx) Social History Tobacco Use Types Packs/Day Years Used Date Smoking Tobacco: Never Assessed Sex and Gender Information Value Date Recorded Sex Assigned at Not on file Legal Sex Male 5:58 AM MANAGER AIR Gender Identity Not on file Sexual Orientation Not on file documented as of this encounter Plan of Treatment Not on file documented as of this encounter Visit Diagnoses Diagnosis Bronchitis, not specified as acute or chronic- Primary documented in this encounter Additional Health Concerns Infection Onset Date Last Indicated Resolved Time MRSA Comment:Nares 10/23/16 RESOLVED 10/25/2016 10/25/2016 10/24/20 17 3:59 PM MANAGER AIR documented as of this encounter Care Teams Grades 1 Thru 6 Visiting Teacher Relationship Specialty Start Date End Date Sanam Sosa DO [address] [place] [phone] PCP - General Family Practice 11/23/10 documented as of this encounter
--- OUTSIDE RECORDS SUMMARY | 2025-07-18 09:14 | XMS_ITS | Continuity of Care Document ---
Author Organization [facility] ([facility]) Address [address] [place] [address] Insurance Providers Payer Plan Claims Address Claims Phone Policy Number Group Number Relation Employer Guarantor Name Guarantor Guarantor Address Guarantor Phone BCBS [address], [place] [address] tel:[phone] Gonzalo Jackson [address] [place] [address] Problems Condition ICD9 code ICD10 code SNOMED [...] mellitus without complications E11.9 03/14/2025 Act geovanny manager intermediate (current) use of oral hypoglycemic drugs Z79.84 [...] Do not resuscitate Z66 03/14/2025 Ac 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 Results No Results Allergies, adverse reactions, alerts [...] wrist or hands topical 1.0 8.0 h 07/17 Active Dulcolax (bisacodyl) (bisacodyl) 10 mg suppository (Dulcolax (bisacodyl) (bisacodyl)) 1 suppository, rectal, Once A Day - PRN, Give rectally if can't take p/o, if no results from [facility] rectal 1.0 1.0 d 2024 Active famotidine 20 mg tablet (famotidine) 1, oral, Other, once daily as needed oral 1.0 07/17 Active gabapentin 300 mg capsule (gabapentin) 1, oral, Three Times A Day oral 1.0 8.0 h 07/17 Active Angy-Lanta (alum-mag hydroxide-simet h) 200-200-20 mg/5 mL suspension (Angy-Lanta (alum-mag hydroxide-simet h)) 10, oral, Every 6 Hours - PRN oral 1.0 6.0 h 07/17 Active hydrocodone-praveen taminophen 5-325 mg tablet (hydrocodone-ac etaminophen) 1 tab, oral, Every 8 Hours - PRN, for pain; exempt R52 oral 1.0 8.0 h 07/17 Active ketoconazole 2 % cream (ketoconazole) 1 application, topical, Twice A Day - PRN, to scaley areas on face topical 1.0 12.0 h 07/17 Active ketoconazole 2 % shampoo (ketoconazole) 1 application, topical, Once A Day on Mon, Wed, Fri, to scalp and face, sit 5 minutes before rinsing topical 1.0 1.0 d 07/17 Active lactulose 10 gram/15 mL solution (lactulose) 30 mL (20 gram), oral, Twice A Day oral 1.0 12.0 h 07/17 Active Lunesta (eszopiclone) 1 mg tablet (Lunesta (eszopiclone)) 1, oral, At Bedtime oral 1.0 07/17 Active metformin 1,000 mg tablet (metformin) 1 tab, oral, Twice A Day oral 1.0 12.0 h 07/17 Active Tylenol (acetaminophen) 325 mg tablet (Tylenol [...] oral, At Bedtime oral 1.0 07/07 Active alum-mag hydroxide-simet h 200-200-20 mg/5 mL suspension (alum-mag hydroxide-simet h) 10 mL, oral, Four Times A Day - PRN oral 1.0 6.0 h 2024 Active diclofenac sodium 1 % gel (diclofenac sodium) 1 g, topical, Three Times A Day, Apply to single elbow, wrist, and hand. For hand, includes pain, fingers, and back of hand. topical 1.0 8.0 h 2024 Active eszopiclone 1 mg tablet (eszopiclone) 1 TAB, oral, At Bedtime, Exempt G47.00 oral 1.0 2024 Active ferrous sulfate 325 mg (65 mg iron) tablet (ferrous sulfate) 1 tab, oral, Twice A Day, dosing per ti oral 1.0 12.0 h 2024 Active gabapentin 300 mg capsule (gabapentin) 1 CAP, oral, Three Times A Day oral 1.0 8.0 h 2024 Active hydrocodone-praveen taminophen 5-325 mg tablet (hydrocodone-ac etaminophen) 1 TAB, oral, Every 8 Hours - PRN, For pain. Exempt R52 oral 1.0 8.0 h 2024 Active ketoconazole 2 % cream (ketoconazole) 1 JOSÉ MIGUEL, topical, Twice A Day - PRN, Apply to red scaly areas on face for skin irritation topical 1.0 12.0 h 2024 Active ketoconazole 2 % shampoo (ketoconazole) 1 JOSÉ MIGUEL, topical, Once A Day on Mon, Wed, Fri, Lather onto scalp and face. Allow to sit 5 minutes before rinsing. topical 1.0 1.0 d 2024 Active lactulose 10 gram/15 mL solution (lactulose) 30 mL (20Gm), oral, Twice A Day oral 1.0 12.0 h 2024 Active metformin 1,000 mg tablet (metformin) 1 TAB, oral, Twice A Day oral 1.0 12.0 h 2024 Active Protonix (pantoprazole) 40 mg tablet,delayed release (DR/EC) (Protonix (pantoprazole)) 1, oral, Twice A Day oral 1.0 12.0 h 2024 Active sucralfate 1 gram tablet (sucralfate) 1 TAB, oral, Before Meals and At Bedtime oral 1.0 2024 Active ferrous sulfate 325 mg (65 mg iron) tablet (ferrous sulfate) 1 tab, oral, Once A Day Every Other Day, dosing per ti oral 1.0 1.0 d 07/17 Active omeprazole 20 mg capsule,delayed release(DR/EC) (omeprazole) 1 CAP, oral, Once A Day, TI for Pantoprazole oral 1.0 1.0 d 07/17 Active omeprazole 20 mg capsule,delayed release(DR/EC) (omeprazole) 1 CAP, oral, Twice A Day, TI for Pantoprazole oral 1.0 12.0 h 07/17 Active Vital Signs Date Vital Result Comment 07/10/2025 08:31 AM Temperature (8310-5) 98.5 [degF] Oxygen Saturation (23315-7) 95 % Respiratory Rate (9279-1) 16 /min Heart Rate (8867-4) 90 /min Blood Pressure Systolic (8480-6) 115 mm[Hg] Blood Pressure Diastolic (8462-4) 61 mm[Hg] 07/08/2025 08:25 AM Body Weight (00119-5) 174.8 [lb_av ] Body Mass Index (32989-7) 26.58 kg/m2 07/03/2025 10:44 AM Temperature (8310-5) 98 [degF] Oxygen Saturation (72765-1) 97 % Respiratory Rate (9279-1) 16 /min Heart Rate (8867-4) 80 /min Blood Pressure Systolic (8480-6) 120 mm[Hg] Blood Pressure Diastolic (8462-4) 66 mm[Hg] 06/26/2025 12:50 PM Temperature (8310-5) 98.4 [degF] Oxygen Saturation (34139-4) 98 % Respiratory Rate (9279-1) 16 /min Heart Rate (8867-4) 86 /min Blood Pressure Systolic (8480-6) 118 mm[Hg] Blood Pressure Diastolic (8462-4) 60 mm[Hg] 06/19/2025 07:04 AM Temperature (8310-5) 98.4 [degF] Oxygen Saturation (83322-3) 94 % Respiratory Rate (9279-1) 17 /min Heart Rate (8867-4) 92 /min Blood Pressure Systolic (8480-6) 110 mm[Hg] Blood Pressure Diastolic (8462-4) 52 mm[Hg] 06/13/2025 08:46 AM Body Weight (82651-7) 175.4 [lb_av ] Body Mass Index (63747-1) 26.67 kg/m2 06/12/2025 04:42 PM Body Weight (93616-2) 174 [lb_av] Body Mass Index (18549-2) 26.45 kg/m2 06/12/2025 02:11 PM Temperature (8310-5) 98.9 [degF] Oxygen Saturation (98988-9) 96 % Respiratory Rate (9279-1) 16 /min Heart Rate (8867-4) 68 /min Blood Pressure Systolic (8480-6) 136 mm[Hg] Blood Pressure Diastolic (8462-4) 72 mm[Hg] 06/11/2025 08:35 AM Body Weight (17757-1) 174 [lb_av] Body Mass Index (06887-3) 26.45 kg/m2 06/10/2025 12:56 PM Body Weight (15245-5) 176 [lb_av] Body Mass Index (08858-7) 26.76 kg/m2 06/07/2025 11:46 AM Body Weight (42661-2) 176.2 [lb_av ] Body Mass Index (19612-4) 26.79 kg/m2 06/05/2025 07:53 AM Temperature (8310-5) 97.3 [degF] Oxygen Saturation (30307-5) 97 % Respiratory Rate (9279-1) 16 /min Heart Rate (8867-4) 100 /min Blood Pressure Systolic (8480-6) 118 mm[Hg] Blood Pressure Diastolic (8462-4) 62 mm[Hg] 05/29/2025 03:31 PM Body Weight (83454-1) 165.3 [lb_av ] Body Mass Index (74073-6) 25.13 kg/m2 05/29/2025 12:57 PM Temperature (8310-5) 97 [degF] Oxygen Saturation (86431-4) 98 % Respiratory Rate (9279-1) 18 /min Heart Rate (8867-4) 70 /min Blood Pressure Systolic (8480-6) 128 mm[Hg] Blood Pressure Diastolic (8462-4) 72 mm[Hg] 05/22/2025 01:18 PM Body Weight (75204-4) 166.8 [lb_av ] Body Mass Index (01583-1) 25.36 kg/m2 05/22/2025 11:29 AM Temperature (8310-5) 97.5 [degF] Oxygen Saturation (81875-0) 97 % Respiratory Rate (9279-1) 20 /min Heart Rate (8867-4) 72 /min Blood Pressure Systolic (8480-6) 126 mm[Hg] Blood Pressure Diastolic (8462-4) 80 mm[Hg] 05/15/2025 05:22 PM Body Weight (34370-3) 167.1 [lb_av ] Body Mass Index (10491-7) 25.4 kg/m2 05/11/2025 10:54 AM Temperature (8310-5) 98.3 [degF] Oxygen Saturation (10702-5) 93 % Respiratory Rate (9279-1) 20 /min Heart Rate (8867-4) 98 /min Blood Pressure Systolic (8480-6) 131 mm[Hg] Blood Pressure Diastolic (8462-4) 64 mm[Hg] 05/11/2025 02:51 AM Temperature (8310-5) 97.4 [degF] Oxygen Saturation (74358-5) 95 % Respiratory Rate (9279-1) 15 /min Heart Rate (8867-4) 105 /min Blood Pressure Systolic (8480-6) 120 mm[Hg] Blood Pressure Diastolic (8462-4) 63 mm[Hg] 05/09/2025 11:16 AM Body Weight (98996-4) 167.6 [lb_av ] Body Mass Index (72687-4) 25.48 kg/m2 05/08/2025 01:36 PM Body Weight (20752-0) 166.8 [lb_av ] Body Mass Index (51523-0) 25.36 kg/m2 05/07/2025 01:02 PM Body Weight (60666-3) 166.2 [lb_av ] Body Mass Index (67615-3) 25.27 kg/m2 05/06/2025 05:52 PM Body Height (8302-2) 68 [in_us] 05/06/2025 05:51 PM Body Weight (19965-8) 167.7 [lb_av ] Body Mass Index (22078-5) 25.5 kg/m2 07/17/2025 02:35 PM Body Weight (61377-6) 175 [lb_av] Body Mass Index (47333-3) 26.61 kg/m2 07/17/2025 01:16 PM Temperature (8310-5) 98.2 [degF] Oxygen Saturation (27561-9) 96 % Respiratory Rate (9279-1) 20 /min Heart Rate (8867-4) 79 /min Blood Pressure Systolic (8480-6) 111 mm[Hg] Blood Pressure Diastolic (8462-4) 56 mm[Hg] 07/17/2025 08:46 PM Temperature (8310-5) 98 [degF] Oxygen Saturation (97551-5) 96 % Respiratory Rate (9279-1) 18 /min Heart Rate (8867-4) 77 /min Blood Pressure Systolic (8480-6) 110 mm[Hg] Blood Pressure Diastolic (8462-4) 58 mm[Hg] 07/18/2025 07:02 AM Temperature (8310-5) 98.5 [degF] Oxygen Saturation (66015-8) 98 % Respiratory Rate (9279-1) 16 /min Heart Rate (8867-4) 78 /min Blood Pressure Systolic (8480-6) 118 mm[Hg] Blood Pressure Diastolic (8462-4) 62 mm[Hg] Social History No smoking Hx information available Encounters Type CPT Code Date Location Provider Indication s encounter report 03/14/2025 12:3 1 PM - 07/15/2025 03:13 AM Demarcus Poole DO 01 Advance Directives Directive Description Verification Date Supporting Document(s) Resuscitation
--- OUTSIDE RECORDS SUMMARY | 2025-07-18 09:14 | XMS_ITS | Clinical Summary ---
Author Organization [facility] Address [address] [place] [address] Care Team Providers Care Client Services Assistant Name Role Phone Sanam Sosa Primary Care Provider Allergies Active Allergy Reactions Criticality Noted Date Comments Haloperidol Lactate Arrhythmia,Bradycard ia High 02/11/2014 Heart block and bradycardia after receiving Medications levothyroxine 25 mcg tablet Take 1 Tablet (25 mcg) by mouth daily informatics developer. 30 Tablet 5 8 Active pantoprazole (PROTONIX) [...] on file Legal Sex Male 5:58 AM STUDENT OUTREACH COORDINATOR Gender Identity Not on file Sexual Orientation Not on file Occupation Industry Job Start Date Job End Date Not on file Not on file Not on file Not on file Last Filed Vital Signs Vital Sign Reading Time Taken Comments Blood Pressure 136/82 11/13/2020 4:43 PM STUDENT OUTREACH COORDINATOR Pulse 101 11/13/2020 4:43 PM STUDENT OUTREACH COORDINATOR Temperature 36.6 C (97.8 F) 11/13/2020 4:43 PM STUDENT OUTREACH COORDINATOR Respiratory Rate 18 11/13/2020 4:43 PM STUDENT OUTREACH COORDINATOR Oxygen Saturation 94% 11/13/2020 4:43 PM STUDENT OUTREACH COORDINATOR Inhaled Oxygen Concentration - - Weight 106.1 kg (234 lb) 11/13/2020 4:43 PM STUDENT OUTREACH COORDINATOR Height 177.8 cm (5' 10 ) 11/13/2020 4:43 PM STUDENT OUTREACH COORDINATOR Body Mass Index 33.58 11/13/2020 4:43 PM STUDENT OUTREACH COORDINATOR Plan of Treatment Health Maintenance Due Date [...] complication, without long-term current use of insulin ([facility]) HEMOGLOBIN A1C Routine 03/02/2021 8:22 AM CDT Type 2 diabetes mellitus without complication, without long-term current use of insulin ([facility]) MICROALBUMIN/CREATIN INE RATIO, RANDOM UR Routine 08/02/2019 11:27 AM CDT from Last 3 Months or Most Recently Relevant to Health Maintenance Results * (ABNORMAL) HEMOGLOBIN A1C (03/02/2021 8:22 AM CDT) HEMOGLOBIN A1C 6.5(H) See Comment % 03/02/2021 9:11 PM CDT [facility] EST. AVG GLUCOSE, A1C 140 mg/dL 03/02/2021 9:11 PM CDT [facility] Blood Venipuncture / Unknown 03/02/2021 8:22 AM CDT 03/02/2021 8:46 PM CDT Narrative [facility] - 03/02/2021 9:11 PM CDT HGB A1C INTERPRETATION NORMAL: <5.7% PRE-DIABETES: 5.7 - 6.4% DIABETES: 6.5% OR GREATER Falsely low A1C measurements can occur when: 1. Anemia and/or hemolytic anemia is present. 2. Hemoglobin variants present. 3. Renal failure. 4. Transfusion of blood product in the last 120 days. We recommend ordering a fructosamine test(OCD7354) to more accurately assess glycemic status if any of the above conditions are present. us Sanam Sosa DO CHEMISTRY ORDERABLES Final Result [facility] CLIA# [id number] [facility] [address] * (ABNORMAL) LIPID PANEL (03/02/2021 8:22 AM CDT) CHOLESTEROL 176 <200 mg/dL 03/02/2021 9:33 PM CDT [facility] TRIGLYCERIDE 177(H) <150 mg/dL 03/02/2021 9:33 PM CDT [facility] HDL 48 40 - 59 mg/dL 03/02/2021 9:33 PM CDT [facility] LDL CALCULATED 93 <100 mg/dL 03/02/2021 9:33 PM CDT [facility] NON-HDL CHOLESTEROL 128 <130 mg/dL 03/02/2021 9:33 PM CDT [facility] Blood Venipuncture / Unknown 03/02/2021 8:22 AM CDT 03/02/2021 8:47 PM CDT Narrative [facility] - 03/02/2021 [...] Sanam Sosa DO CHEMISTRY ORDERABLES Final Result [facility] CLIA# [id number] [facility] [place] [address] * MICROALBUMIN/CREATININE RATIO, RANDOM UR (08/02/2019 11:27 AM CDT) MICROALBUMIN, URINE <1.2 No Reference Range mg/dL 08/02/2019 8:03 PM CDT [facility] CREATININE, URINE 56.4 40.0 - 278.0 mg/dL 08/02/2019 8:03 PM CDT [facility] Comment:Reference Range vari es with fluid intake and diet. Urine URINE SPECIMEN OBTAINED BY CLEAN CATCH PROCEDURE / Unknown Collection / Unknown 08/02/2019 11:27 AM CDT 08/02/2019 7:25 PM CDT Narrative [facility] - 08/02/2019 8:03 PM CDT Condition Microalbumin/Creat ratio Normal Males <17 Normal Females <25 Microalbuminuria Males 17-299 Microalbuminuria Females 25-299 Overt proteinuria >=300 Unable to calculate urine microalbumin/creatinine ratio because urine microalbumin result is outside of reportable range. us Sanam Sosa DO URINE ORDERABLES Final Resu lt [facility] CLIA# [id number] [address] [place] [address] from Last 3 Months or Most Recently Relevant to Health Maintenance Insurance [facility] BCBS Advance Directives For more information, please contact: [phone] * Full Code (Latest Code Status on [...] 7:02 AM 08/27/2010 2:50 PM Care Teams Client Services Assistant Relationship Specialty Start Date End Date Sanam Sosa DO [address] [place] [phone] PCP - General Family Practice 11/23/10
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
--- OUTSIDE RECORDS SUMMARY | 2025-07-18 09:14 | XMS_ITS | Encounter Summary ---
Author Organization [facility] Address [address] [place] [address] Care Team Providers Care Centrifugal Casting Machine Tender Name Role Phone Sanam Sosa DO Primary Care Provider Encounter Details Date Type Department Care Team (Latest Contact Info) Description 05/26/2006 Outpatient Historical [facility] Family Medicine- [place] [address] [place] [address] Rodrigue Grissom MD NO ADDRESS ON FILE Acute Sinusitis, Unspecified (Primary Dx); Acute Bronchitis Social History Tobacco Use Types Packs/Day Years Used Date Smoking Tobacco: Never Assessed Sex and Gender Information Value Date Recorded Sex Assigned at Not on file Legal Sex Male 5:58 AM 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 TEACHER Gender Identity Not on file Sexual Orientation Not on file documented as of this encounter Plan of Treatment Not on file documented as of this encounter Visit Diagnoses Diagnosis Acute sinusitis, unspecified- Primary Acute bronchitis documented in this encounter Additional Health Concerns Infection Onset Date Last Indicated Resolved Time MRSA Comment:Narama 10/23/16 RESOLVED 10/25/2016 10/25/2016 10/24/20 17 3:59 PM 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 TEACHER documented as of this encounter Care Teams Centrifugal Casting Machine Tender Relationship Specialty Start Date End Date Sanam Sosa DO [address] [facility] [place] [phone] PCP - General Family Practice 11/23/10 documented as of this encounter
--- OUTSIDE RECORDS SUMMARY | 2025-07-18 09:14 | XMS_ITS | Encounter Summary ---
Author Organization [facility] Address [address] [place] [address] Care Team Providers Care Size Mixer Name Role Phone Sanam Sosa DO Primary Care Provider Encounter Details Date Type Department Care Team (Latest Contact Info) Description 04/09/2002 Out[facility] [address] [place] [phone] Enrrique Hernandez MD NO ADDRESS ON FILE DERMATITIS NOS (Primary Dx) Social History Tobacco Use Types Packs/Day Years Used Date Smoking Tobacco: Never Assessed Sex and Gender Information Value Date Recorded Sex Assigned at Not on file Legal Sex Male 5:58 AM BROADCAST CORRESPONDENT Gender Identity Not on file Sexual Orientation Not on file documented as of this encounter Plan of Treatment Not on file documented as of this encounter Visit Diagnoses Diagnosis Contact dermatitis and other eczema, due to unspecified cause- Primary documented in this encounter Additional Health Concerns Infection Onset Date Last Indicated Resolved Time MRSA Comment:Boogie 10/23/16 RESOLVED 10/25/2016 10/25/2016 10/24/20 17 3:59 PM BROADCAST CORRESPONDENT documented as of this encounter Care Teams Size Mixer Relationship Specialty Start Date End Date Sanam Sosa DO [address] [place] [address] PCP - General Family Practice 11/23/10 documented as of this encounter
--- OUTSIDE RECORDS SUMMARY | 2025-07-18 09:14 | XMS_ITS | Encounter Summary ---
Author Organization [facility] Address [address] [place] [address] Care Team Providers Care Journeyman Pipe Fitter Name Role Phone Sanam Sosa DO Primary Care Provider Reason for Referral * Outpatient Services (Routine) - Closed Specialty Diagnoses / Procedures Referred By Wes david Referred To Contact Diagnoses Thoracic or lumbosacral neuritis or radiculitis, unspecified Procedures XR FLUORO NEEDLE GUIDANCE Poncho Ferrer MD NO ADDRESS ON FILE Referral ID Status Reason Start Date Expiration Date Visits Re quested Visits Authorized [id number] Closed 05/15/2013 06/15/2014 1 1 Encounter Details Date Type Department Care Team (Late st Contact Info) Description 05/15/2013 Ancillary Orders [facility] Pain Management Procedures [place] [address] [place] [phone] Poncho Ferrer MD NO ADDRESS ON FILE [...] on file Legal Sex Male 5:58 AM DIVISION HEAD Gender Identity Not on file Sexual Orientation [...] RESOLVED 10/25/2016 10/25/2016 10/24/20 17 3:59 PM DIVISION HEAD documented as of this encounter Care Teams Journeyman Pipe Fitter Relationship Specialty Start Date End Date Sanam Sosa DO [address] [place] [address] PCP - General Family Practice 11/23/10 documented as of this encounter
== END 2025-07-17 11:15 | disposition skilled nursing facility (03) | DRG 378 ==
LOC: ER 05:50 → ER IP 07:57 → MEDSURG 16:08 → ER IP 07-18 09:11
PROVIDERS: Surgery; Admitting Provider Student in an Organized Health Care Education/Training Program; Emergency Provider Emergency Medicine; PCP Internal Medicine; Visit Provider Internal Medicine
DX: K29.81 Duodenitis with bleeding (principal); D62 Acute posthemorrhagic anemia; R45.851 Suicidal ideations; E87.20 Acidosis, unspecified; K70.30 Alcoholic cirrhosis of liver without ascites; F10.11 Alcohol abuse, in remission; F17.210 Nicotine dependence, cigarettes, uncomplicated; G47.00 Insomnia, unspecified; E11.9 Type 2 diabetes mellitus without complications; E03.9 Hypothyroidism, unspecified; N30.20 Other chronic cystitis without hematuria; Z63.4 Disappearance and death of family member; Z79.84 Long term (current) use of oral hypoglycemic drugs; Z79.891 Long term (current) use of opiate analgesic; Z87.11 Personal history of peptic ulcer disease; Z90.79 Acquired absence of other genital organ(s); Z85.46 Personal history of malignant neoplasm of prostate
CPT/HCPCS: 36415; 74177; 80053; 81001; 83540; 83550; 83605; 83690; 85014; 85018; 85025; 85610; 86140; 87077; 87086; 87186; 96374; 96375; 99285; G0378; J2270; J2405; J2470; J7030; J9999

== ENCOUNTER 2025-07-28 20:18 | Emergency (ER) | payer MEDICARE, SELFPAY ==
[2025-07-28 20:21] VITALS: BP 101/51; PULSE 121; RESP 20; TEMP 39.1; O2SAT 95; BMI 25.1
--- NOTE | 2025-07-28 20:29 | XRR_ITS ---
PROCEDURE INFORMATION: Exam: XR Chest Exam date and time: 07/28/2025 8:34 PM Age: 65 years old Clinical indication: Fever and shortness of breath; SOB with fever; Additional info: Possible sepsis TECHNIQUE: Imaging protocol: Radiologic exam of the chest. Views: 1 view. COMPARISON: CR XR chest 1V portable [id number] 05/28/2025 10:18 AM FINDINGS: Lungs: Hazy opacity right lower lung zone appearing since prior 05/28/2025. Differential consideration includes pneumonia. Pleural spaces: No pneumothorax. Heart/Mediastinum: No acute abnormality. No cardiomegaly. Bones/joints: No acute abnormality. XR/XR chest 1V portable [id number] IMPRESSION: Hazy opacity right lower lung zone appearing since prior 05/28/2025. Differential consideration includes pneumonia.
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
--- OUTSIDE RECORDS SUMMARY | 2025-07-28 20:29 | XMS_ITS | Encounter Summary ---
Author Organization [facility] Address [address] [place] [address] Care Team Providers Care Decal Cutter Name Role Phone Sanam Sosa DO Primary Care Provider Encounter Details Date Type Department Care Team (Latest Contact Info) Description 03/24/2005 Outpatient Historical [facility] Family Medicine- [place] [address] [place] [address] Johnny Awan MD [address] [place] [address] [address] DEG BURN ARM NOS (Primary Dx) Social History Tobacco Use Types Packs/Day Years Used Date Smoking Tobacco: Never Assessed Sex and Gender Information Value Date Recorded Sex Assigned at Not on file 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
--- OUTSIDE RECORDS SUMMARY | 2025-07-28 20:29 | XMS_ITS | Encounter Summary ---
Author Organization [facility] Address [address] [place] [address] Care Team Providers Care Accreditation Manager Name Role Phone Sanam Sosa DO Primary Care Provider Reason for Referral * Outpatient Services (Routine) - Closed Specialty Diagnoses / Procedures Referred By Wes david Referred To Contact Diagnoses Thoracic or lumbosacral neuritis or radiculitis, unspecified Procedures XR FLUORO NEEDLE GUIDANCE Poncho Ferrer MD NO ADDRESS ON FILE Referral ID Status Reason Start Date Expiration Date Visits Re quested Visits Authorized [id number] Closed 05/15/2013 06/15/2014 1 1 Encounter Details Date Type Department Care Team (Late st Contact Info) Description 05/15/2013 Ancillary Orders [facility] Pain Management Procedures [place] [address] [place] [phone] Poncho Ferrer MD NO ADDRESS ON FILE [...] on file 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
--- OUTSIDE RECORDS SUMMARY | 2025-07-28 20:29 | XMS_ITS | Continuity of Care Document ---
Author Organization [facility] (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 topical 1.0 8.0 h 2024 Active ferrous sulfate 325 mg (65 mg iron) tablet (ferrous sulfate) 1 tab, oral, Twice A Day, dosing per ti oral 1.0 12.0 h 07/22 Active eszopiclone 1 mg tablet (eszopiclone) 1 TAB, oral, At Bedtime, Exempt G47.00 oral 1.0 07/22 Active gabapentin 300 mg capsule (gabapentin) 1 CAP, oral, Three Times A Day oral 1.0 8.0 h 07/22 Active hydrocodone-praveen taminophen 5-325 mg tablet (hydrocodone-ac [...] Before Meals and At Bedtime oral 1.0 07/22 Active ferrous sulfate 325 mg (65 mg [...] AM Temperature (8310-5) 98.5 [degF] Oxygen Saturation (26798-0) 95 % Respiratory Rate (9279-1) 16 /min Heart Rate (8867-4) 90 /min Blood Pressure Systolic (8480-6) 115 mm[Hg] Blood Pressure Diastolic (8462-4) 61 mm[Hg] 06/12/2025 02:11 PM Temperature (8310-5) 98.9 [degF] Oxygen Saturation (23577-7) 96 % Respiratory Rate (9279-1) 16 /min Heart Rate (8867-4) 68 /min Blood Pressure Systolic (8480-6) 136 mm[Hg] Blood Pressure Diastolic (8462-4) 72 mm[Hg] 07/03/2025 10:44 AM Temperature (8310-5) 98 [degF] Oxygen Saturation (62702-8) 97 % Respiratory Rate (9279-1) 16 /min Heart Rate (8867-4) 80 /min Blood Pressure Systolic (8480-6) 120 mm[Hg] Blood Pressure Diastolic (8462-4) 66 mm[Hg] 06/05/2025 07:53 AM Temperature (8310-5) 97.3 [degF] Oxygen Saturation (74263-3) 97 % Respiratory Rate (9279-1) 16 /min Heart Rate (8867-4) 100 /min Blood Pressure Systolic (8480-6) 118 mm[Hg] Blood Pressure Diastolic (8462-4) 62 mm[Hg] 06/10/2025 12:56 PM Body Weight (65368-6) 176 [lb_av] Body Mass Index (15394-5) 26.76 kg/m2 05/22/2025 01:18 PM Body Weight (97400-7) 166.8 [lb_av ] Body Mass Index (75835-8) 25.36 kg/m2 05/11/2025 02:51 AM Temperature (8310-5) 97.4 [degF] Oxygen Saturation (04607-6) 95 % Respiratory Rate (9279-1) 15 /min Heart Rate (8867-4) 105 /min Blood Pressure Systolic (8480-6) 120 mm[Hg] Blood Pressure Diastolic (8462-4) 63 mm[Hg] 06/19/2025 07:04 AM Temperature (8310-5) 98.4 [degF] Oxygen Saturation (48376-3) 94 % Respiratory Rate (9279-1) 17 /min Heart Rate (8867-4) 92 /min Blood Pressure Systolic (8480-6) 110 mm[Hg] Blood Pressure Diastolic (8462-4) 52 mm[Hg] 06/11/2025 08:35 AM Body Weight (92687-5) 174 [lb_av] Body Mass Index (31154-9) 26.45 kg/m2 06/12/2025 04:42 PM Body Weight (15220-0) 174 [lb_av] Body Mass Index (52181-2) 26.45 kg/m2 06/26/2025 12:50 PM Temperature (8310-5) 98.4 [degF] Oxygen Saturation (63005-8) 98 % Respiratory Rate (9279-1) 16 /min Heart Rate (8867-4) 86 /min Blood Pressure Systolic (8480-6) 118 mm[Hg] Blood Pressure Diastolic (8462-4) 60 mm[Hg] 05/29/2025 03:31 PM Body Weight (25016-9) 165.3 [lb_av ] Body Mass Index (00116-6) 25.13 kg/m2 05/22/2025 11:29 AM Temperature (8310-5) 97.5 [degF] Oxygen Saturation (23331-4) 97 % Respiratory Rate (9279-1) 20 /min Heart Rate (8867-4) 72 /min Blood Pressure Systolic (8480-6) 126 mm[Hg] Blood Pressure Diastolic (8462-4) 80 mm[Hg] 05/09/2025 11:16 AM Body Weight (43418-8) 167.6 [lb_av ] Body Mass Index (72282-3) 25.48 kg/m2 06/07/2025 11:46 AM Body Weight (08352-6) 176.2 [lb_av ] Body Mass Index (68623-9) 26.79 kg/m2 07/08/2025 08:25 AM Body Weight (95919-6) 174.8 [lb_av ] Body Mass Index (12198-3) 26.58 kg/m2 06/13/2025 08:46 AM Body Weight (10485-0) 175.4 [lb_av ] Body Mass Index (89063-5) 26.67 kg/m2 05/08/2025 01:36 PM Body Weight (09832-4) 166.8 [lb_av ] Body Mass Index (63089-8) 25.36 kg/m2 05/06/2025 05:52 PM Body Height (8302-2) 68 [in_us] 05/06/2025 05:51 PM Body Weight (81200-3) 167.7 [lb_av ] Body Mass Index (90263-4) 25.5 kg/m2 05/15/2025 05:22 PM Body Weight (75746-7) 167.1 [lb_av ] Body Mass Index (82837-5) 25.4 kg/m2 05/29/2025 12:57 PM Temperature (8310-5) 97 [degF] Oxygen Saturation (39022-4) 98 % Respiratory Rate (9279-1) 18 /min Heart Rate (8867-4) 70 /min Blood Pressure Systolic (8480-6) 128 mm[Hg] Blood Pressure Diastolic (8462-4) 72 mm[Hg] 05/11/2025 10:54 AM Temperature (8310-5) 98.3 [degF] Oxygen Saturation (61832-2) 93 % Respiratory Rate (9279-1) 20 /min Heart Rate (8867-4) 98 /min Blood Pressure Systolic (8480-6) 131 mm[Hg] Blood Pressure Diastolic (8462-4) 64 mm[Hg] 05/07/2025 01:02 PM Body Weight (46921-4) 166.2 [lb_av ] Body Mass Index (96072-0) 25.27 kg/m2 07/17/2025 01:16 PM Temperature (8310-5) 98.2 [degF] Oxygen Saturation (60306-9) 96 % Respiratory Rate (9279-1) 20 /min Heart Rate (8867-4) 79 /min Blood Pressure Systolic (8480-6) 111 mm[Hg] Blood Pressure Diastolic (8462-4) 56 mm[Hg] 07/17/2025 02:35 PM Body Weight (04374-3) 175 [lb_av] Body Mass Index (33982-9) 26.61 kg/m2 07/17/2025 08:46 PM Temperature (8310-5) 98 [degF] Oxygen Saturation (02937-5) 96 % Respiratory Rate (9279-1) 18 /min Heart Rate (8867-4) 77 /min Blood Pressure Systolic (8480-6) 110 mm[Hg] Blood Pressure Diastolic (8462-4) 58 mm[Hg] 07/18/2025 07:02 AM Temperature (8310-5) 98.5 [degF] Oxygen Saturation (98745-5) 98 % Respiratory Rate (9279-1) 16 /min Heart Rate (8867-4) 78 /min Blood Pressure Systolic (8480-6) 118 mm[Hg] Blood Pressure Diastolic (8462-4) 62 mm[Hg] 07/18/2025 04:13 PM Body Weight (20756-6) 174.8 [lb_av ] Body Mass Index (36471-3) 26.58 kg/m2 07/18/2025 06:24 PM Temperature (8310-5) 98 [degF] Oxygen Saturation (31369-7) 96 % Respiratory Rate (9279-1) 18 /min Heart Rate (8867-4) 65 /min Blood Pressure Systolic (8480-6) 110 mm[Hg] Blood Pressure Diastolic (8462-4) 56 mm[Hg] 07/19/2025 07:26 AM Temperature (8310-5) 98.2 [degF] Oxygen Saturation (00829-8) 99 % Respiratory Rate (9279-1) 16 /min Heart Rate (8867-4) 66 /min Blood Pressure Systolic (8480-6) 118 mm[Hg] Blood Pressure Diastolic (8462-4) 69 mm[Hg] 07/19/2025 01:45 PM Body Weight (90540-2) 179.6 [lb_av ] Body Mass Index (42925-3) 27.31 kg/m2 07/19/2025 08:58 PM Temperature (8310-5) 98.6 [degF] Oxygen Saturation (59983-7) 99 % Respiratory Rate (9279-1) 15 /min Heart Rate (8867-4) 74 /min Blood Pressure Systolic (8480-6) 110 mm[Hg] Blood Pressure Diastolic (8462-4) 70 mm[Hg] 07/20/2025 10:09 AM Temperature (8310-5) 98.7 [degF] Oxygen Saturation (11943-2) 93 % Respiratory Rate (9279-1) 22 /min Heart Rate (8867-4) 60 /min Blood Pressure Systolic (8480-6) 139 mm[Hg] Blood Pressure Diastolic (8462-4) 66 mm[Hg] 07/20/2025 10:08 AM Body Weight (79549-0) 176.6 [lb_av ] Body Mass Index (41355-1) 26.85 kg/m2 07/20/2025 09:14 PM Temperature (8310-5) 97.6 [degF] Oxygen Saturation (29767-7) 95 % Respiratory Rate (9279-1) 20 /min Heart Rate (8867-4) 64 /min Blood Pressure Systolic (8480-6) 127 mm[Hg] Blood Pressure Diastolic (8462-4) 61 mm[Hg] 07/21/2025 03:03 PM Temperature (8310-5) 97.8 [degF] Oxygen Saturation (16606-7) 95 % Respiratory Rate (9279-1) 16 /min Heart Rate (8867-4) 68 /min Blood Pressure Systolic (8480-6) 116 mm[Hg] Blood Pressure Diastolic (8462-4) 68 mm[Hg] 07/21/2025 09:25 PM Temperature (8310-5) 98.1 [degF] Oxygen Saturation (26143-6) 95 % Respiratory Rate (9279-1) 16 /min Heart Rate (8867-4) 70 /min Blood Pressure Systolic (8480-6) 112 mm[Hg] Blood Pressure Diastolic (8462-4) 70 mm[Hg] 07/22/2025 12:20 PM Temperature (8310-5) 98.9 [degF] Oxygen Saturation (51910-7) 97 % Respiratory Rate (9279-1) 20 /min Heart Rate (8867-4) 85 /min Blood Pressure Systolic (8480-6) 107 mm[Hg] Blood Pressure Diastolic (8462-4) 61 mm[Hg] 07/22/2025 08:22 PM Temperature (8310-5) 98.6 [degF] Oxygen Saturation (51370-8) 97 % Respiratory Rate (9279-1) 18 /min Heart Rate (8867-4) 88 /min Blood Pressure Systolic (8480-6) 110 mm[Hg] Blood Pressure Diastolic (8462-4) 64 mm[Hg] 07/23/2025 04:27 PM Temperature (8310-5) 98.5 [degF] Oxygen Saturation (72567-8) 96 % Respiratory Rate (9279-1) 20 /min Heart Rate (8867-4) 93 /min Blood Pressure Systolic (8480-6) 138 mm[Hg] Blood Pressure Diastolic (8462-4) 83 mm[Hg] 07/24/2025 12:24 PM Temperature (8310-5) 97.8 [degF] Oxygen Saturation (31193-2) 97 % Respiratory Rate (9279-1) 18 /min Heart Rate (8867-4) 84 /min Blood Pressure Systolic (8480-6) 142 mm[Hg] Blood Pressure Diastolic (8462-4) 80 mm[Hg] 07/24/2025 10:28 PM Temperature (8310-5) 97.8 [degF] Oxygen Saturation (81925-4) 98 % Respiratory Rate (9279-1) 18 /min Heart Rate (8867-4) 88 /min Blood Pressure Systolic (8480-6) 140 mm[Hg] Blood Pressure Diastolic (8462-4) 78 mm[Hg] 07/25/2025 06:42 AM Temperature (8310-5) 98 [degF] Oxygen Saturation (97434-7) 97 % Respiratory Rate (9279-1) 16 /min Heart Rate (8867-4) 80 /min Blood Pressure Systolic (8480-6) 132 mm[Hg] Blood Pressure Diastolic (8462-4) 74 mm[Hg] 07/25/2025 07:24 PM Temperature (8310-5) 97 [degF] Oxygen Saturation (90828-2) 98 % Respiratory Rate (9279-1) 16 /min Heart Rate (8867-4) 100 /min Blood Pressure Systolic (8480-6) 101 mm[Hg] Blood Pressure Diastolic (8462-4) 66 mm[Hg] 07/26/2025 06:35 AM Temperature (8310-5) 98.2 [degF] Oxygen Saturation (43266-4) 97 % Respiratory Rate (9279-1) 15 /min Heart Rate (8867-4) 85 /min Blood Pressure Systolic (8480-6) 110 mm[Hg] Blood Pressure Diastolic (8462-4) 72 mm[Hg] 07/27/2025 06:33 AM Temperature (8310-5) 98.6 [degF] Oxygen Saturation (65031-6) 98 % Respiratory Rate (9279-1) 16 /min Heart Rate (8867-4) 88 /min Blood Pressure Systolic (8480-6) 118 mm[Hg] Blood Pressure Diastolic (8462-4) 62 mm[Hg] 07/27/2025 08:38 PM Temperature (8310-5) 98.4 [degF] Oxygen Saturation (34660-1) 97 % Respiratory Rate (9279-1) 17 /min Heart Rate (8867-4) 79 /min Blood Pressure Systolic (8480-6) 119 mm[Hg] Blood Pressure Diastolic (8462-4) 76 mm[Hg] 07/28/2025 06:39 AM Temperature (8310-5) 98.1 [degF] Oxygen Saturation (15574-5) 98 % Respiratory Rate (9279-1) 16 /min Heart Rate (8867-4) 66 /min Blood Pressure Systolic (8480-6) 122 mm[Hg] Blood Pressure Diastolic (8462-4) 68 mm[Hg] Social History No smoking Hx information available Encounters Type CPT Code Date Location Provider Indication s encounter report 03/14/2025 12:3 1 PM - 07/15/2025 03:13 AM Demarcus Poole DO 01 Advance Directives Directive Description Verification Date Supporting Document(s) Resuscitation
--- OUTSIDE RECORDS SUMMARY | 2025-07-28 20:29 | XMS_ITS | Clinical Summary ---
Author Organization 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 Gender Identity Not on file Sexual Orientation Not on file Occupation Industry Job Start Date Job End Date Not on file Not on file Not on file Not on file Last Filed Vital Signs Vital Sign Reading Time Taken Comments Blood Pressure 136/82 11/13/2020 4:43 PM VOLUNTEER SERVICES SPECIALIST Pulse 101 11/13/2020 4:43 PM VOLUNTEER SERVICES SPECIALIST Temperature 36.6 C (97.8 F) 11/13/2020 4:43 PM VOLUNTEER SERVICES SPECIALIST Respiratory Rate 18 11/13/2020 4:43 PM VOLUNTEER SERVICES SPECIALIST Oxygen Saturation 94% 11/13/2020 4:43 PM VOLUNTEER SERVICES SPECIALIST Inhaled Oxygen Concentration - - Weight 106.1 kg (234 lb) 11/13/2020 4:43 PM VOLUNTEER SERVICES SPECIALIST Height 177.8 cm (5' 10 ) 11/13/2020 4:43 PM VOLUNTEER SERVICES SPECIALIST Body Mass Index 33.58 11/13/2020 4:43 PM VOLUNTEER SERVICES SPECIALIST Plan of Treatment Health Maintenance Due Date [...] complication, without long-term current use of insulin ([facility]) HEMOGLOBIN A1C Routine 03/02/2021 8:22 AM CDT Type 2 diabetes mellitus without complication, without long-term current use of insulin ([facility]) MICROALBUMIN/CREATIN INE RATIO, RANDOM UR Routine 08/02/2019 11:27 AM CDT from Last 3 Months or Most Recently Relevant to Health Maintenance Results * (ABNORMAL) HEMOGLOBIN A1C (03/02/2021 8:22 AM CDT) HEMOGLOBIN A1C 6.5(H) See Comment % 03/02/2021 9:11 PM CDT [facility] EST. AVG GLUCOSE, A1C 140 mg/dL 03/02/2021 9:11 PM CDT [facility] Blood Venipuncture / Unknown 03/02/2021 8:22 AM CDT 03/02/2021 8:46 PM CDT Narrative [facility] - 03/02/2021 9:11 PM CDT HGB A1C INTERPRETATION NORMAL: <5.7% PRE-DIABETES: 5.7 - 6.4% DIABETES: 6.5% OR GREATER Falsely low A1C measurements can occur when: 1. Anemia and/or hemolytic anemia is present. 2. Hemoglobin variants present. 3. Renal failure. 4. Transfusion of blood product in the last 120 days. We recommend ordering a fructosamine test([id number]) to more accurately assess glycemic status if any of the above conditions are present. us Sanam Sosa DO CHEMISTRY ORDERABLES Final Result [facility] CLIA# [id number] [facility] [place] [address] * (ABNORMAL) LIPID PANEL (03/02/2021 8:22 AM CDT) CHOLESTEROL 176 <200 mg/dL 03/02/2021 9:33 PM CDT [facility] TRIGLYCERIDE 177(H) <150 mg/dL 03/02/2021 9:33 PM CDT [facility] HDL 48 40 - 59 mg/dL 03/02/2021 9:33 PM CDT [facility] LDL CALCULATED 93 <100 mg/dL 03/02/2021 9:33 PM CDT [facility] NON-HDL CHOLESTEROL 128 <130 mg/dL 03/02/2021 9:33 PM CDT [facility] Blood Venipuncture / Unknown 03/02/2021 8:22 AM CDT 03/02/2021 8:47 PM CDT Narrative [facility] - 03/02/2021 [...] Sanam Sosa DO CHEMISTRY ORDERABLES Final Result [facility] CLIA# [id number] [facility] [place] [address] * MICROALBUMIN/CREATININE RATIO, RANDOM UR (08/02/2019 11:27 AM CDT) MICROALBUMIN, URINE <1.2 No Reference Range mg/dL 08/02/2019 8:03 PM CDT [facility] CREATININE, URINE 56.4 40.0 - 278.0 mg/dL 08/02/2019 8:03 PM CDT [facility] Comment:Reference Range vari es with fluid intake and diet. Urine URINE SPECIMEN OBTAINED BY CLEAN CATCH PROCEDURE / Unknown Collection / Unknown 08/02/2019 11:27 AM CDT 08/02/2019 7:25 PM CDT Narrative [facility] - 08/02/2019 8:03 PM CDT Condition Microalbumin/Creat ratio Normal Males <17 Normal Females <25 Microalbuminuria Males 17-299 Microalbuminuria Females 25-299 Overt proteinuria >=300 Unable to calculate urine microalbumin/creatinine ratio because urine microalbumin result is outside of reportable range. us Sanam Sosa DO URINE ORDERABLES Final Resu lt [facility] CLIA# [id number] [address] [place] [address] from Last 3 Months or Most Recently Relevant to Health Maintenance Insurance [facility] BCBS Advance Directives For more information, please contact: [phone] * Full Code (Latest Code Status on [...] 7:02 AM 08/27/2010 2:50 PM Care Teams Mail Weigher Relationship Specialty Start Date End Date Sanam Sosa DO [address] [place] [phone] PCP - General Family Practice 11/23/10
--- OUTSIDE RECORDS SUMMARY | 2025-07-28 20:29 | XMS_ITS | Encounter Summary ---
Author Organization [facility] Address [address] [place] [address] Care Team Providers Care Supervisor Ride Assembly Name Role Phone Sanam Sosa DO Primary Care Provider Encounter Details Date Type Department Care Team (Latest Contact Info) Description 05/26/2006 Outpatient Historical [facility] Family Medicine- [place] [address] [place] [address] Rodrigue Grissom MD NO ADDRESS ON FILE Acute Sinusitis, Unspecified (Primary Dx); Acute Bronchitis Social History Tobacco Use Types Packs/Day Years Used Date Smoking Tobacco: Never Assessed Sex and Gender Information Value Date Recorded Sex Assigned at Not on file 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 Gender Identity Not on file Sexual Orientation Not on file documented as of this encounter Plan of Treatment Not on file documented as of this encounter Visit Diagnoses Diagnosis Acute sinusitis, unspecified- Primary Acute bronchitis documented in this encounter Additional Health Concerns Infection Onset Date Last Indicated Resolved Time MRSA Comment:Nares 10/23/16 RESOLVED 10/25/2016 10/25/2016 10/24/20 17 3:59 PM MEMBER OF CONGRESS documented as of this encounter Care Teams Supervisor Ride Assembly Relationship Specialty Start Date End Date Sanam Sosa DO [address] [facility] [place] [phone] PCP - General Family Practice 11/23/10 documented as of this encounter
--- OUTSIDE RECORDS SUMMARY | 2025-07-28 20:29 | XMS_ITS | Encounter Summary ---
Author Organization [facility] Address [address] [place] [address] Care Team Providers Care Manager Business Intelligence Name Role Phone Sanam Sosa DO Primary Care Provider Encounter Details Date Type Department Care Team (Latest Contact Info) Description 11/05/2005 Outpatient Historical [facility] Family Medicine- [place] [address] [place] [address] Maximo Fox, ATTORNEY GENERAL [address], [place] [id number] BRONCHITIS NOS (Primary Dx) Social History Tobacco Use Types Packs/Day Years Used Date Smoking Tobacco: Never Assessed Sex and Gender Information Value Date Recorded Sex Assigned at Not on file 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 Gender Identity Not on file Sexual Orientation Not on file documented as of this encounter Plan of Treatment Not on file documented as of this encounter Visit Diagnoses Diagnosis Bronchitis, not specified as acute or chronic- Primary documented in this encounter Additional Health Concerns Infection Onset Date Last Indicated Resolved Time MRSA Comment:Nares 10/23/16 RESOLVED 10/25/2016 10/25/2016 10/24/20 17 3:59 PM RAILWAY TRACTION LINE WORKER documented as of this encounter Care Teams Manager Business Intelligence Relationship Specialty Start Date End Date Sanam Sosa DO [address] [place] [phone] PCP - General Family Practice 11/23/10 documented as of this encounter
--- OUTSIDE RECORDS SUMMARY | 2025-07-28 20:29 | XMS_ITS | Encounter Summary ---
Author Organization [facility] Address [address] [place] [address] Care Team Providers Care Mop Worker Name Role Phone Sanam Sosa DO Primary Care Provider Encounter Details Date Type Department Care Team (Latest Contact Info) Description 04/09/2002 Outpatient [facility] [address] [place] [phone] Enrrique Hernandez MD NO ADDRESS ON FILE DERMATITIS NOS (Primary Dx) Social History Tobacco Use Types Packs/Day Years Used Date Smoking Tobacco: Never Assessed Sex and Gender Information Value Date Recorded Sex Assigned at Not on file 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 Gender Identity Not on file Sexual Orientation Not on file documented as of this encounter Plan of Treatment Not on file documented as of this encounter Visit Diagnoses Diagnosis Contact dermatitis and other eczema, due to unspecified cause- Primary documented in this encounter Additional Health Concerns Infection Onset Date Last Indicated Resolved Time MRSA Comment:Boogie 10/23/16 RESOLVED 10/25/2016 10/25/2016 10/24/20 17 3:59 PM CAP PARTS CUTTER documented as of this encounter Care Teams Mop Worker Relationship Specialty Start Date End Date Sanam Sosa DO [address] [place] [address] PCP - General Family Practice 11/23/10 documented as of this encounter
[2025-07-28] MEDS: acetaminophen 1,000 MG/100 ML PIGGYBACK 400 MG IV (20:30)
--- NOTE | 2025-07-28 20:32 | ECG_ITS ---
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 Measurements Intervals [place] Rate: 120 P: -50 WV: 141 QRS: 23 QRSD: 73 T: 43 QT: 317 QTc: 450 Interpretive Statements ECTOPIC ATRIAL TACHYCARDIA ABNORMAL RHYTHM ECG Compared to ECG 05/28/2025 11:16:41 Sinus tachycardia no longer present Electronically Signed On 07-29-2025 20:29:46 CDT by Gretchen Leung M.D. [email or web address] [id number]
[2025-07-28 21:00] VITALS: BP 86/47; PULSE 107; RESP 24; O2SAT 96
[2025-07-28 21:00] LABS: Hematocrit 27.2 % (37-53); Hemoglobin 8.00 g/dL (11.27-16.99); Mean Corpuscular HGB Conc 29.4 g/dL (30-55); Mean Corpuscular Hemoglobin 24.1 pg (27-33); Mean Corpuscular Volume 81.9 fl (82-101); Platelet Count 99 10^3/cmm (157-399); Red Blood Count 3.32 10^6/uL (3.85-5.65); White Blood Count 11.52 10^3/uL (3.29-11.43)
[2025-07-28 21:43] LABS: Slide Review Slide Review Perform
[2025-07-28 21:44] LABS: Absolute Segmented Neutrophil 7.8 10/cmm (1.6-7.1); Atypical Lymphs 0.0 % (0-5); Band Neutrophils Absolute 1.7 10^3/cmm (0.0-1.2); Giant Platelets Trace; Hypochromasia 2+; Microcytosis Trace; Total Cells Counted 100 (0-100)
[2025-07-28 21:45] LABS: Dohle Bodies 1+
[2025-07-28 21:52] LABS: Alanine Aminotransferase 8 U/L (0-41); Albumin Level 2.4 g/dL (3.5-5.2); Alkaline Phosphatase 61 U/L (40-130); Anion Gap 22.8 (5-19); Aspartate Amino Transferase 17 U/L (0-40); Blood Urea Nitrogen 14 mg/dL (8-23); Calcium 8.1 mg/dL (8.5-10.5); Carbon Dioxide 14 mmol/L (22-29); Chloride 104 mmol/L (98-107); Globulin 3.5 g/dL (1.3-4.6); Glucose 117 mg/dL (65-115); Osmolality Calculated 286 mOsm/kg (285-295); Potassium 3.8 mmol/L (3.5-5.1); Procalcitonin 4.89 ng/mL (0-0.5); Sodium 137 mmol/L (136-145); Total Protein 5.9 g/dL (6.6-8.7)
--- NOTE | 2025-07-28 21:52 | ED_ITS ---
HPI - Fever 2 General: Chief Complaint: Fever Stated Complaint: WEAKNESS Time Seen by Provider: 07/28/25 20:21 History of Present Illness: 65 yo M from [facility] presents for fever and weakness. Per [facility], baseline A&O x4 and ambulates independently with a cane. On arrival, temp 102.9?103. No Tylenol or ibuprofen taken; mcc applied wet rags. Pt is alert to name, , month, and location. Seen in this ER 12 days ago with Hgb 7.3, WBC 2.83, and lactate 5.3. Provider noted concern that ?gases? looked worse, details unclear. Denies focal neuro deficits per exam. ROS otherwise not detailed in transcript. Related Data Home Medications ?Medication ?Instructions ?Recorded ?Confirmed metformin 1,000 mg tablet 1,000 mg PO BID 11/18/1907/01 ketoconazole 2 % shampoo See Rx Instructions .Route 0 02/28/25 07/15/25 .COMPLEX PRN Skin Irritation ketoconazole 2 % topical cream See Rx Instructions .[place] 02/28/25 07/15/25 .COMPLEX PRN Skin Irritation acetaminophen 325 mg tablet 650 mg PO TID PRN Pain 07/15/25 (Tylenol) bisacodyl 10 mg rectal suppository 10 mg MN DAILY PRN constipation 04/26/25 07/15/25 (Dulcolax (bisacodyl)) bisacodyl 5 mg tablet,delayed 10 mg PO DAILY PRN const ipation 04/26/25 07/15/25 release (Dulcolax (bisacodyl)) diclofenac sodium 1 % topical gel 1 g topical TID 04/0807/15/25 hydrocodone 5 mg-acetaminophen 325 1 tab PO Q8H PRN Pa in 05/28/25 07/15/25 mg tablet aluminum-mag hydroxide-simethicone 10 ml PO QID PRN co nstapation 07/15/25 07/15/25 200 mg-200 mg-20 mg/5 mL oral susp (Angy-Lanta) eszopiclone 1 mg tablet (Lunesta) 1 mg PO BEDTIME 07/0107/15/25 gabapentin 300 mg capsule 300 mg PO TID 07/15/2507/15 lactulose 10 gram/15 mL oral 30 ml PO BID 07/15/2507/01 solution Previous Rx's ?Medication ?Instructions ?Recorded ferrous sulfate 324 mg (65 mg 324 mg PO BID #60 tabs 0 07/16/25 iron) tablet,delayed release pantoprazole 40 mg tablet,delayed 40 mg PO BID #60 tab s 07/16/25 release sucralfate 1 gram tablet 1 g PO AC&BEDTIME #60 tabs 0 07/16/25 Allergies Allergy/AdvReac Type Severity Reaction Status Date / Time No Known Allergies Allergy Verified 07/28/25 20:26 [facility] ED 2 PFSH: Medical History (Updated 07/29/25 @ 00:09 by Jama Newton MD) History of colon polyps Prostate cancer Liver cirrhosis Insomnia Type 2 diabetes mellitus Hypothyroidism Surgical History H/O prostatectomy History of esophagogastroduodenoscopy Family History Mother Diabetes mellitus, type 2 Social History Smoking and tobacco/nicotine status: never used tobacco/nicotine Alcohol intake: former Substance/Drug Use: unknown Physical Exam 2 Const: COMMON NORMALS: no acute distress, patient oriented x3 and alert HENMT: COMMON NORMALS: normocephalic and atraumatic HEAD & SCALP: n ormocephalic and atraumatic Eye: COMMON NORMALS: Equal, round and reactive pupils present, EOMs intact bilaterally and no scleral icterus PUPIL: Yes Equal, round and reactive pupils present Resp: COMMON NORMALS: normal respiratory effort and No retractions Cardio: COMMON NORMALS: regular rhythm and No murmurs present (Cardio) R HYTHM: regular rhythm OTHER: tachycardic GI: COMMON NORMALS: Normal to inspection, nondistended, normoactive bowel sounds present, Soft to palpation and non-tender PALPATION: Yes Soft to palpation Neuro: COMMON NORMALS: patient oriented x3 SENSORIUM/ORIENTATION: Yes alert Skin: COMMON NORMALS: no rashes or lesions noted GENERAL SKIN EXAM: no rashes or lesions noted Course 2 Vital Signs: Vital signs: Vital Signs Temperature 102.4 F H 07/28/25 20:21 Pulse Rate 113 H 07/29/25 00:09 Respiratory Rate 20 H 07/29/25 00:09 Blood Pressure 98/49 07/29/25 00:09 Pulse Oximetry 95 07/29/25 00:09 Oxygen Delivery Me thod Room Air 07/29/25 00:09 MDM - Fever Medical Decision Making 65 yo M from [facility] with fever and weakness. No antipyretics taken before arrival. Prior ER visit 12 days ago notable for Hgb 7.3, WBC 2.83, lactate 5.3. Vitals notable for fever 102.9?103, tachycardia, and mild tachypnea. PE: lungs clear, abdomen soft/nonperitoneal, no focal neuro deficits. Based on vital signs, he was started on cefepime and vancomycin for suspected sepsis. In summary, patient arrived with fever of 102.4 with no obvious source. Chest x-ray did not show obvious pneumonia. White blood cell count is mildly elevated. Lactic acid is 9.8. Urinalysis from prior hospitalization showed E. coli infection which was pansensitive. CT of the chest abdomen pelvis shows a 10 mm right proximal ureteral stone causing hydronephrosis and subsequent perinephric stranding. I strongly suspect infected ureteral stone causing severe sepsis. Mean arterial pressure was in the low 50s despite 30 mL/kg IV bolus of fluids thus vasopressor medication was started. Norepinephrine had to be titrated up several times to achieve mean arterial pressure of 65. Patient has preference and prior hospitalizations at [facility] in [place] and wishes to be transferred there as there are no urology services at this hospital. I spoke with the transfer center and asked that urology and ICU physicians to be contacted to facilitate transfer. Lab Data 07/28/25 20:41 07/28/25 20:41 Radiology Impressions Chest X-Ray 07/28/25 20:29 IMPRESSION: Hazy opacity right lower lung zone appearing since prior 05/28/2025. Differential consideration includes pneumonia. Chest/Abdomen/Pelvis CT 07/28/25 22:10 IMPRESSION: Trace right effusion with associated compressive atelectasis, superimposed infectious infiltrate not excluded. IMPRESSION: On the right, mild hydronephrosis due to obstructing calculus at the ureteropelvic junction measuring up to 10 mm. Associated perinephric stranding. Laboratory Results WBC 11.52 10^3/uL (3.29-11.43) H 07/28/25 20:41 RBC 3.32 10^6/uL (3.85-5.65) L 07/28/25 20:41 Hgb 8.00 g/dL (11.27-16.99) L 07/28/25 20:41 Hct 27.2 % (37-53) L 07/28/25 20:41 MCV 81.9 fl (82-101) L 07/28/25 20:41 MCH 24.1 pg (27-33) L 07/28/25 20:41 MCHC 29.4 g/dL (30-55) L 07/28/25 20:41 RDW 16.5 % (12.1-15.1) H 07/28/25 20:41 Plt Count 99 10^3/cmm (157-399) L 07/28/25 20:41 MPV 10.9 fL (7.4-10.4) H 07/28/25 20:41 Lymph % (Auto) Not Reportable 07/28/25 20:41 [place] % (Auto) Not Reportable 07/28/25 20:41 Lymph # (Auto) Not Reportable 07/28/25 20:41 [place] # (Auto) Not Reportable 07/28/25 20:41 Total Counted 100 (0-100) 07/28/25 20: Atypical Lymphs % 0.0 % (0-5) 07/28/25 20:41 Absolute Neutrophils 9.6 10^3/cmm (1.4-6.5) H 07/28/25 20:41 Segmented Neutrophils 68 % 07/28/25 20:41 Band Neutrophils 15.0 % 07/28/25 20:41 Absolute Lymphocytes 0.9 10^3/cmm (1.2-3.4) L 07/28/25 20:41 Lymphocytes (Manual) 8 % 07/28/25 20:41 Monocytes (Manual) 5.0 % 07/28/25 20: Absolute Monocytes 0.6 10^3/cmm (0.1-0.6) 07/28/25 20:41 Eosinophils (Manual) 0 % 07/28/25 20:41 Absolute Eosinophils 0.0 10^3/cmm (0.0-0.7) 07/28/25 20:41 Basophils (Manual) 0.0 % 07/28/25 20:41 Absolute Basophils 0.0 10^3/cmm (0.0-0.2) 07/28/25 20:41 Metamyelocytes 3.0 % 07/28/25 20:41 Myelocytes 1.0 % 07/28/25 20:41 Dohle Bodies 1+ H 07/28/25 20:41 Platelet Estimate Decreased (Normal) 07/28/25 20: Giant Platelets Trace 07/28/25 20:41 Hypochromasia 2+ H 07/28/25 20:41 Microcytosis Trace 07/28/25 20:41 Sodium 137 mmol/L (136-145) 07/28/25 20:41 Potassium 3.8 mmol/L (3.5-5.1) 07/28/25 20:41 Chloride 104 mmol/L (98-107) 07/28/25 20:41 Carbon Dioxide 14 mmol/L (22-29) L 07/28/25 20:41 Anion Gap 22.8 (5-19) H 07/28/25 20:41 BUN 14 mg/dL (8-23) 07/28/25 20:41 Creatinine 1.3 mg/dL (0.7-1.2) H 07/28/25 20:41 GFR Calculation 55.1 mL/min (90-130) L 07/28/25 20:41 Glucose 117 mg/dL (65-115) H 07/28/25 20:41 Calculated Osmolality 286 mOsm/kg (285-295) 07/28/25 20:41 Lactic Acid 9.8 mmol/L (0.5-2.2) H* 07/28/25 20:41 Lactic Acid (Sepsis) 6.2 mmol/L (0.5-2.2) H* 07/28/25 23:23 Calcium 8.1 mg/dL (8.5-10.5) L 07/28/25 20:41 Total Bilirubin 0.9 mg/dL (0.15-1.2) 07/28/25 20:41 AST 17 U/L (0-40) 07/28/25 20:41 ALT 8 U/L (0-41) 07/28/25 20:41 Alkaline Phosphatase 61 U/L (40-130) 07/28/25 20:41 Total Protein 5.9 g/dL (6.6-8.7) L 07/28/25 20:41 Albumin 2.4 g/dL (3.5-5.2) L 07/28/25 20:41 Globulin 3.5 g/dL (1.3-4.6) 07/28/25 20:41 Procalcitonin 4.89 ng/mL (0-0.5) H 07/28/25 20:41 Urine Color [place] (Yellow) A 07/28/25 23:50 Urine Appearance Clear (CLEAR) 07/28/25 23:50 Urine pH 5.0 (5-7) 07/28/25 23:50 Ur Specific [place] 1.032 (1.005-1.030) H 07/28/25 23:50 Urine Protein Trace (Negative) A 07/28/25 23:50 Urine Glucose (UA) Negative (Normal) 07/28/25 23:50 Urine Ketones Trace (Negative) 07/28/25 23:50 Urine Blood 2+ (Negative) A 07/28/25 23:50 Urine Nitrate Positive (Negative) A 07/28/25 23:50 Urine Bilirubin Negative (Negative) 07/28/25 23:50 Urine Urobilinogen 1.0 mg/dL (Negative) 07/28/25 23:50 Ur Leukocyte Esterase 2+ (Negative) A 07/28/25 23:50 Urine RBC 0-2 /hpf (0-2) 07/28/25 23:50 Urine WBC 51-100 /hpf (0-5) H 07/28/25 23:50 Ur Squamous Epith Cells 0-5 /hpf (0-5) 07/28/25 23:50 Amorphous Sediment Not Reportable 07/28/25 23:50 Urine Bacteria 1+ /hpf (NONE) H 07/28/25 23:50 Hyaline Casts 0.40 /lpf 07/28/25 23:50 Adenovirus (PCR) Not detected (NOT DETECT) 07/28/25 20:37 C. pneumoniae DNA (PCR) Not detected (NOT DETECT) 07/28/25 20:37 Coronavirus 229E (PCR) Not detected (NOT DETECT) 07/28/25 20:37 Human Metapneumovir PCR Not detected (NOT DETECT) 07/28/25 20:37 Influenza A (H1) PCR Not detected (NOT DETECT) 07/28/25 20:37 Influ A (H1/09) PCR Not detected (NOT DETECT) 07/28/25 20:37 Influenza A (H3) PCR Not detected (NOT DETECT) 07/28/25 20:37 Influenza Type A (PCR) Not detected (NOT DETECT) 07/28/25 20:37 Influenza Type B (PCR) Not detected (NOT DETECT) 07/28/25 20:37 M. pneumoniae (PCR) Not detected (NOT DETECT) 07/28/25 20:37 Parainfluenza 1 (PCR) Not detected (NOT DETECT) 07/28/25 20:37 Parainfluenza 2 (PCR) Not detected (NOT DETECT) 07/28/25 20:37 Parainfluenza 3 (PCR) Not detected (NOT DETECT) 07/28/25 20:37 Parainfluenza 4 (PCR) Not detected (NOT DETECT) 07/28/25 20:37 RSV Type A (PCR) Not detected (NOT DETECT) 07/28/25 20:37 RSV Type B (PCR) Not detected (NOT DETECT) 07/28/25 20:37 Entero/Rhino (PCR) Not detected (NOT DETECT) 07/28/25 20:37 SARS-CoV-2 (PCR) Not detected (NOT DETECT) 07/28/25 20:37 All radiology interpretation(s) finalized by discharge ED provider radiology interpretation(s): Ordering Provider/Ordering MD: Jama Newton Date of Service: 07/28/25 Procedure(s): CT chest abdpe w/*[id number] Accession Number(s): [id number] Report Number: [id number] PROCEDURE INFORMATION: Exam: CT Chest With Contrast; Diagnostic Exam date and time: 07/28/2025 10:56 PM Age: 65 years old Clinical indication: Fever and shortness of breath; Prior surgery; Surgery date: 6+ months; Surgery type: Hernia repair. Prostatectomy; SOB with fever and hypotension and anemia. Phan. Lactic acid of 9.8. ; Additional info: Sepsis unclear etiology TECHNIQUE: Imaging protocol: Diagnostic computed tomography of the chest with contrast. Radiation optimization: All CT scans at this facility use at least one of these dose optimization techniques: automated exposure control; mA and/or kV adjustment per patient size (includes targeted exams where dose is matched to clinical indication); or iterative reconstruction. Contrast material: OMNI 350; Contrast volume: 80 ml; Contrast route: INTRAVENOUS (IV); COMPARISON: CR (CHEST, ) 07/28/2025 8:34 PM RADIATION DOSE METRICS: Total DLP (mGy-cm): FINDINGS: Lungs: Trace right effusion with associated compressive atelectasis, superimposed infectious infiltrate not excluded. Biapical reticulonodular scarring and mild paraseptal emphysema. Pleural spaces: Unremarkable. No pneumothorax. No pleural effusion. Heart: Unremarkable. No cardiomegaly. No pericardial effusion. Lymph nodes: Unremarkable. No enlarged lymph nodes. Vasculature: Aortic and coronary atherosclerosis. Bones/joints: Old fractures of the lateral aspects of left ribs 5 and 6 as well as 7. Old fractures of the right inferior ribs as well. Soft tissues: Unremarkable. COMMENTS: The presence of pulmonary emphysema on CT is an independent risk factor for lung cancer. In the absence of a history or active diagnosis of lung cancer, it is recommended that this patient with emphysema be evaluated for enrollment in a low dose CT lung cancer screening program. PROCEDURE INFORMATION: Exam: CT Abdomen And Pelvis With Contrast Exam date and time: 07/28/2025 10:56 PM Age: 65 years old Clinical indication: Fever and shortness of breath; Prior surgery; Surgery date: 6+ months; Surgery type: Hernia repair. Prostatectomy; SOB with fever and hypotension and anemia. Phan. Lactic acid of 9.8. ; Additional info: Sepsis unclear etiology TECHNIQUE: Imaging protocol: Computed tomography of the abdomen and pelvis with contrast. Radiation optimization: All CT scans at this facility use at least one of these dose optimization techniques: automated exposure control; mA and/or kV adjustment per patient size (includes targeted exams where dose is matched to clinical indication); or iterative reconstruction. Contrast material: OMNI 350; Contrast volume: 80 ml; Contrast route: INTRAVENOUS (IV); COMPARISON: CT abdomen pelvis w con* [id number] 07/15/2025 4:40 AM RADIATION DOSE METRICS: Total DLP (mGy-cm): FINDINGS: Liver: Normal. No mass. Gallbladder and biliary ducts: Gallstones. Pancreas: Normal. No ductal dilation. Spleen: Normal. No splenomegaly. Adrenal glands: Normal. No mass. Kidneys and ureters: On the right, mild hydronephrosis due to obstructing calculus at the ureteropelvic junction measuring up to 10 mm. Associated perinephric stranding . Stomach and bowel: Unremarkable. No obstruction. No mucosal thickening. Appendix: No evidence of appendicitis. Intraperitoneal space: Unremarkable. No free air. No significant fluid collection. Vasculature: multiple left upper quadrant venous collaterals and likely splenorenal shunts. Aortic atherosclerosis. Lymph nodes: Unremarkable. No enlarged lymph nodes. Urinary bladder: Unremarkable as visualized. Reproductive: Unremarkable as visualized. 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 Mild degenerative changes of the other vertebral bodies with endplate spurring and disc space narrowing. Calcified disc osteophyte complex at L3-L4. Soft tissues: Unremarkable. CT/CT chest abdpel w/*[id number] IMPRESSION: Trace right effusion with associated compressive atelectasis, superimposed infectious infiltrate not excluded. IMPRESSION: On the right, mild hydronephrosis due to obstructing calculus at the ureteropelvic junction measuring up to 10 mm. Associated perinephric stranding. 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
[2025-07-28 22:00] LABS: Creatinine Clr Calc Pharmacy 58.9238
[2025-07-28 22:01] LABS: Lactic Sepsis W/Reflex 9.8 mmol/L (0.5-2.2); Reflex Lactate Order REFLEX LACTIC ORDERD
[2025-07-28 22:02] VITALS: BP 87/46; PULSE 105; RESP 20; O2SAT 94
--- NOTE | 2025-07-28 22:10 | CTR_ITS ---
PROCEDURE INFORMATION: Exam: CT Chest With Contrast; Diagnostic Exam date and time: 07/28/2025 10:56 PM Age: 65 years old Clinical indication: Fever and shortness of breath; Prior surgery; Surgery date: 6+ months; Surgery type: Hernia repair. Prostatectomy; SOB with fever and hypotension and anemia. Phna. Lactic acid of 9.8. ; Additional info: Sepsis unclear etiology TECHNIQUE: Imaging protocol: Diagnostic computed tomography of the chest with contrast. Radiation optimization: All CT scans at this facility use at least one of these dose optimization techniques: automated exposure control; mA and/or kV adjustment per patient size (includes targeted exams where dose is matched to clinical indication); or iterative reconstruction. Contrast material: OMNI 350; Contrast volume: 80 ml; Contrast route: INTRAVENOUS (IV); COMPARISON: CR (CHEST, ) 07/28/2025 8:34 PM RADIATION DOSE METRICS: Total DLP (mGy-cm): 2012. FINDINGS: Lungs: Trace right effusion with associated compressive atelectasis, superimposed infectious infiltrate not excluded. Biapical reticulonodular scarring and mild paraseptal emphysema. Pleural spaces: Unremarkable. No pneumothorax. No pleural effusion. Heart: Unremarkable. No cardiomegaly. No pericardial effusion. Lymph nodes: Unremarkable. No enlarged lymph nodes. Vasculature: Aortic and coronary atherosclerosis. Bones/joints: Old fractures of the lateral aspects of left ribs 5 and 6 as well as 7. Old fractures of the right inferior ribs as well. Soft tissues: Unremarkable. COMMENTS: The presence of pulmonary emphysema on CT is an independent risk factor for lung cancer. In the absence of a history or active diagnosis of lung cancer, it is recommended that this patient with emphysema be evaluated for enrollment in a low dose CT lung cancer screening program. PROCEDURE INFORMATION: Exam: CT Abdomen And Pelvis With Contrast Exam date and time: 07/28/2025 10:56 PM Age: 65 years old Clinical indication: Fever and shortness of breath; Prior surgery; Surgery date: 6+ months; Surgery type: Hernia repair. Prostatectomy; SOB with fever and hypotension and anemia. Phan. Lactic acid of 9.8. ; Additional info: Sepsis unclear etiology TECHNIQUE: Imaging protocol: Computed tomography of the abdomen and pelvis with contrast. Radiation optimization: All CT scans at this facility use at least one of these dose optimization techniques: automated exposure control; mA and/or kV adjustment per patient size (includes targeted exams where dose is matched to clinical indication); or iterative reconstruction. Contrast material: OMNI 350; Contrast volume: 80 ml; Contrast route: INTRAVENOUS (IV); COMPARISON: CT abdomen pelvis w con* [id number] 07/15/2025 4:40 AM RADIATION DOSE METRICS: Total DLP (mGy-cm): 2013.26 FINDINGS: Liver: Normal. No mass. Gallbladder and biliary ducts: Gallstones. Pancreas: Normal. No ductal dilation. Spleen: Normal. No splenomegaly. Adrenal glands: Normal. No mass. Kidneys and ureters: On the right, mild hydronephrosis due to obstructing calculus at the ureteropelvic junction measuring up to 10 mm. Associated perinephric stranding . Stomach and bowel: Unremarkable. No obstruction. No mucosal thickening. Appendix: No evidence of appendicitis. Intraperitoneal space: Unremarkable. No free air. No significant fluid collection. Vasculature: multiple left upper quadrant venous collaterals and likely splenorenal shunts. Aortic atherosclerosis. Lymph nodes: Unremarkable. No enlarged lymph nodes. Urinary bladder: Unremarkable as visualized. Reproductive: Unremarkable as visualized. 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 Mild degenerative changes of the other vertebral bodies with endplate spurring and disc space narrowing. Calcified disc osteophyte complex at L3-L4. Soft tissues: Unremarkable. CT/CT chest abdpel w/*[id number] IMPRESSION: Trace right effusion with associated compressive atelectasis, superimposed infectious infiltrate not excluded. IMPRESSION: On the right, mild hydronephrosis due to obstructing calculus at the ureteropelvic junction measuring up to 10 mm. Associated perinephric stranding.
[2025-07-28] MEDS: cefepime 2,000 mg SDV 2000 MG IVP (22:33)
[2025-07-28] MEDS: norepinephrine 4 MG/250 ML BAG 7.5 MG IV (22:51)
[2025-07-28 22:52] LABS: Coronavirus 229E,HKU1,NL63,OC4 Not Detected (NOT DETECT); Parainfluenza Virus Type 1 Not Detected (NOT DETECT); Parainfluenza Virus Type 2 Not Detected (NOT DETECT); Parainfluenza Virus Type 3 Not Detected (NOT DETECT); Parainfluenza Virus Type 4 Not Detected (NOT DETECT); SARS-COV-2 Not Detected (NOT DETECT)
[2025-07-28] MEDS: iohexol 350 mg/mL 500 mL Btl (per mL) IV (22:57)
[2025-07-28 23:34] VITALS: BP 107/55; PULSE 115; RESP 24; O2SAT 94
[2025-07-28 23:51] LABS: Lactic Acid level (Lactate) 6.2 mmol/L (0.5-2.2)
[2025-07-29 00:06] LABS: Add Urine Microscopic? YES; Glucose Urine UA Negative (Normal); Nitrate Urine Positive (Negative); Specific Gravity, Urine 1.032 (1.005-1.030)
[2025-07-29 00:09] VITALS: BP 98/49; PULSE 113; RESP 20; O2SAT 95
[2025-07-29 00:20] VITALS: BP 84/36; PULSE 127; RESP 28; TEMP 37.8; O2SAT 96
[2025-07-29 00:38] VITALS: RESP 30; O2SAT 95
[2025-07-29] MEDS: morphine 4 mg/mL SDV 1 mL IVP (00:38)
--- NOTE | 2025-07-29 00:44 | ECG_ITS ---
[facility] Date: 2025-07-29 Pat Name: Bernardino Jackson Department: Room: Gender: Male Agronomy Internship: : 1960 Requested By: Jama Blas Order Number: [id number] Mackenzie MD: Gretchen Leung M.D. Measurements Intervals [place] Rate: 177 P: 0 [place]: 0 QRS: 9 QRSD: 71 T: 70 QT: 250 QTc: 430 Interpretive Statements ATRIAL FIBRILLATION WITH RAPID VENTRICULAR RESPONSE WITH ABERRANT CONDUCTION OR VENTRICULAR PREMATURE COMPLEXES MODERATE ST DEPRESSION [0.05+ mV ST DEPRESSION] CRITICAL TEST RESULT Compared to ECG 05/28/2025 11:16:41 Ventricular premature complex(es) now present Aberrant conduction of supraventricular beat(s) now present ST (T wave) deviation now present Sinus tachycardia no longer present Baseline artifacts, need to repeat Electronically Signed On 07-29-2025 20:21:26 CDT by Gretchen Leung M.D. [email or web address] [id number]
[2025-07-29] MEDS: amiodarone 50 mg/mL SDV 3 mL 150 MG IVP (00:45)
[2025-07-29] MEDS: AMIODARONE HCL/D5W 900 MG/500 ML BAG 33.33 MG IV (01:01)
[2025-07-29 01:02] VITALS: PULSE 157; RESP 34; O2SAT 100
[2025-07-29 01:49] VITALS: BP 81/49; PULSE 128; RESP 28; O2SAT 100
[2025-07-29 11:07] LABS: Bacillus cereus group Not Detected (NOT DETECT); Bacillus subtillis group Not Detected (NOT DETECT); Corynebacterium Not Detected (NOT DETECT); Cutibacterium acnes (P.acnes) Not Detected (NOT DETECT); Enterococcus faecalis Not Detected (NOT DETECT); Enterococcus faecium Not Detected (NOT DETECT); Listeria Not Detected (NOT DETECT); Micrococcus Not Detected (NOT DETECT); Pan Candida Not Detected (NOT DETECT); Staphylococcus epidermidis Not Detected (NOT DETECT); Staphylococcus lugdunensis Not Detected (NOT DETECT); Staphylococcus species Not Detected (NOT DETECT); Streptococcus anginosus group Not Detected (NOT DETECT); Streptococcus pyogenes Not Detected (NOT DETECT); Streptococcus species Not Detected (NOT DETECT)
[2025-07-29 11:39] LABS: Pan Gram-Negative Detected (NOT DETECT)
== END 2025-07-29 01:45 | disposition short-term general hospital (02) ==
PROVIDERS: Emergency Provider Student in an Organized Health Care Education/Training Program; PCP Internal Medicine
DX: N13.0 Hydronephrosis with ureteropelvic junction obstruction (principal); N13.6 Pyonephrosis; R65.20 Severe sepsis without septic shock; Z11.52 Encounter for screening for COVID-19; E11.9 Type 2 diabetes mellitus without complications; Z85.46 Personal history of malignant neoplasm of prostate
CPT/HCPCS: 36415; 71045; 71260; 74177; 80053; 81001; 83605; 84145; 85007; 85025; 87040; 87077; 87086; 87150; 87186; 87205; 87486; 87581; 87633; 93005; 96365; 96367; 96375; 99291; 99292; J0131; J0282; J0692; J2270; J3373; J7030; J9999

== ENCOUNTER 2025-08-15 10:57 | Observation (INO) | payer MEDICARE, SELFPAY ==
[2025-08-15] VITALS (7 sets, daily range): BP systolic 105–133; BP diastolic 68–80; PULSE 84–89; RESP 16–17; TEMP 36.8–37.5; O2SAT 92–100; BMI 30.1
--- NOTE | 2025-08-15 10:55 | CT_ITS ---
WS: [id number] CT HEAD TECHNIQUE: Noncontrast CT of the head obtained from the skullbase to the vertex. CLINICAL INFORMATION: Symptoms of acute stroke COMPARISON: 05/28/2025 DLP: [address] scans at [facility] use at least one of these dose optimization techniques: automated exposure control; mA and/or kV adjustment per patient size (includes targeted exams where dose is matched to clinical indication); or iterative reconstruction. FINDINGS: No evidence of intracranial hemorrhage or mass effect. Ventricular system and basal cisterns are patent. Mild small vessel changes with mild parenchymal volume loss. No extra-axial fluid collections. No evidence of mass or mass effect. Vascular calcification Paranasal sinuses and mastoid air cells are well aerated. .Normal visualized soft tissues. CT/CT head thrombolytic 50077 IMPRESSION: 1. No evidence of intracranial hemorrhage or mass effect. 2. No acute intracranial findings. Notified Chelle Santillan MD at 08/15/2025 11:16 AM.
--- NOTE | 2025-08-15 11:03 | W.ED.NEUROSD ---
HPI - Neuro Symptoms/Deficit General: Chief Complaint: Neuro Symptoms/Deficit Stated Complaint: stroke - slurred speech Time Seen by Provider: 08/15/25 11:01 History of Present Illness: 65-year-old man with a history of chronic anemia, alcoholic cirrhosis, prostate cancer, type 2 diabetes, hypothyroidism, chronic pain syndrome obstructive uropathy, GERD, and a DNR CODE STATUS who presents to the emergency room by ambulance from shelter with concerns for neurologic symptoms. The doctor at the shelter had woken him up from sleep and he had slurred speech. This has since resolved. He is now alert and oriented. He tells me that yes he did have some slurred speech but it was because he was having difficulty waking up. No reports of any unilateral deficits. He says he feels fine now. No cough. No chest pain. No abdominal pain. No vomiting. Related Data Home Medications ?Medication ?Instructions ?Recorded ?Confirmed metformin 1,000 mg tablet 1,000 mg PO BID 11/18/19 07/15/25 ketoconazole 2 % shampoo See Rx Instructions .Route 02/28/25 07/15/25 .COMPLEX PRN Skin Irritation ketoconazole 2 % topical cream See Rx Instructions .Route 02/28/25 07/15/25 .COMPLEX PRN Skin Irritation acetaminophen 325 mg tablet 650 mg PO TID PRN Pain 04/26/25 07/15/25 (Tylenol) bisacodyl 10 mg rectal suppository 10 mg MI DAILY PRN constipation 04/26/25 07/15/25 (Dulcolax (bisacodyl)) bisacodyl 5 mg tablet,delayed 10 mg PO DAILY PRN constipation 04/26/25 07/15/25 release (Dulcolax (bisacodyl)) diclofenac sodium 1 % topical gel 1 g topical TID 04/26/25 07/15/25 hydrocodone 5 mg-acetaminophen 325 1 tab PO Q8H PRN Pain 05/28/25 07/15/25 mg tablet aluminum-mag hydroxide-simethicone 10 ml PO QID PRN constapation 07/15/25 07/15/25 200 mg-200 mg-20 mg/5 mL oral susp (Angy-Lanta) eszopiclone 1 mg tablet (Lunesta) 1 mg PO BEDTIME 07/15/25 07/15/25 gabapentin 300 mg capsule 300 mg PO TID 07/15/25 07/15/25 lactulose 10 gram/15 mL oral 30 ml PO BID 07/15/25 07/15/25 solution Previous Rx's ?Medication ?Instructions ?Recorded ferrous sulfate 324 mg (65 mg 324 mg PO BID #60 tabs 07/16/25 iron) tablet,delayed release pantoprazole 40 mg tablet,delayed 40 mg PO BID #60 tabs 07/16/25 release sucralfate 1 gram tablet 1 g PO AC&BEDTIME #60 tabs 07/16/25 Allergies Allergy/AdvReac Type Severity Reaction Status Date / Time No Known Allergies Allergy Verified 07/28/25 20:26 Review of Systems Narrative: Constitutional symptoms: Negative except as documented in HPI. Skin symptoms: Negative except as documented in HPI. Eye symptoms: Negative except as documented in HPI. ENMT symptoms: Negative except as documented in HPI. Respiratory symptoms: Negative except as documented in HPI. Cardiovascular symptoms: Negative except as documented in HPI. Gastrointestinal symptoms: Negative except as documented in HPI. Genitourinary symptoms: Negative except as documented in HPI. Musculoskeletal symptoms: Negative except as documented in HPI. Neurologic symptoms: Negative except as documented in HPI. Psychiatric symptoms: Negative except as documented in HPI. Endocrine symptoms: Negative except as documented in HPI. [facility] ED PFSH: Medical History (Updated 08/15/25 @ 12:52 by Chelle Santillan MD) History of colon polyps Prostate cancer Liver cirrhosis Insomnia Type 2 diabetes mellitus Hypothyroidism Surgical History H/O prostatectomy History of esophagogastroduodenoscopy Family History Mother Diabetes mellitus, type 2 Social History Smoking and tobacco/nicotine status: never used tobacco/nicotine Alcohol intake: former Substance/Drug Use: unknown Physical Exam Narrative: EXAM NARRATIVE: General: Alert, no acute distress. Skin: Warm, dry. Head: Normocephalic, atraumatic. Neck: Supple, trachea midline. Eye: Extraocular movements are intact. Ears, nose, mouth and throat: mucosa moist. Cardiovascular: Regular, Normal peripheral perfusion. Respiratory: Lungs are clear to auscultation, respirations are non-labored, breath sounds are equal, Symmetrical chest wall expansion. Gastrointestinal: Soft, Nontender, Non distended Musculoskeletal: Normal ROM, no deformity. Neurological: Alert, mildly confused no focal neurological deficit observed. Some mild tremor Psychiatric: Cooperative, appropriate mood & affect. Course Vital Signs: Vital signs: Vital Signs Temperature 98.3 F 08/15/25 11:12 Pulse Rate 84 08/15/25 11:12 Respiratory Rate 16 08/15/25 11:12 Blood Pressure 105/71 08/15/25 11:12 Pulse Oximetry 92 08/15/25 11:12 Oxygen Delivery Me thod Room Air 08/15/25 11:12 MDM - Neuro Symptoms/Deficit Medical Decision Making Medical decision making: Differential diagnosis for patient with focal neurologic deficit(s) includes but not limited to and based on the above HPI, review of systems and physical exam: ischemic stroke, hemorrhagic stroke and embolic stroke secondary to atrial fibrillation), TIA, Kay's palsey, metabolic encephalopathy with previous stroke. Orders placed to evaluate differential diagnosis based on the above differential, HPI and physical exam Last known well time was just before he went down for a nap at [address] head: No acute intracranial process. No intracranial hemorrhage, no evidence of infarct. No evidence of acute fracture. This was reviewed and interpreted by myself the emergency room physician. I also reviewed the radiology report. EKG: Time 11:07 AM. Rate 83. Normal sinus rhythm, No ST-T changes, no ectopy, normal MI & QRS intervals, This was reviewed and interpreted by myself the ER physician at 1111 Lab Review: Laboratory results were reviewed and interpreted by myself the emergency room physician. No leukocytosis. Stable anemia with a hemoglobin of 9.2. No renal failure. Ammonia is elevated at 101. Patient also has 20-50 whites in his urine with no bacteria of the like this can have to be treated. I reviewed the patient's medical record and shelter documentation. 65-year-old man with a history of chronic anemia, alcoholic cirrhosis, prostate cancer, type 2 diabetes, hypothyroidism, chronic pain syndrome obstructive uropathy, GERD, and a DNR CODE STATUS Reexamination: Patient remains slightly confused while in the emergency room. No focal motor deficits. He says he has been taking lactulose. Consultation: I spoke with Dr. Chan who is on-call for the hospitalist service agrees to admission. Assessment and plan: Hepatic encephalopathy Urinary tract infection ? Rocephin, lactulose, 500 mL liter normal saline bolus. Patient does not display any signs of sepsis at this time. His lactate was a little bit elevated but this is often the case with cirrhotics. No leukocytosis. Vitals are at his baseline. -I discussed the patient with the hospitalist on-call who is admitting the patient. - Discussed findings and plan with patient. Answered any questions. - All laboratory values were reviewed and interpreted personally by myself, the ER physician - All imaging was reviewed and interpreted personally by myself, the ER physician. - Evaluation and treatment of this problem were appropriate in the emergency setting Lab Data 08/15/25 11:00 08/15/25 12:[address] 08/15/25 10:55 IMPRESSION: 1. No evidence of intracranial hemorrhage or mass effect. 2. No acute intracranial findings. Notified Chelle Santillan MD at 08/15/2025 11:16 AM. Laboratory Results WBC 4.92 10^3/uL (3.29-11.43) 08/15/25 11:00 RBC 3.82 10^6/uL (3.85-5.65) L 08/15/25 11:00 Hgb 9.20 g/dL (11.27-16.99) L 08/15/25 11:00 Hct 30.7 % (37-53) L 08/15/25 11:00 MCV 80.4 fl (82-101) L 08/15/25 11:00 MCH 24.1 pg (27-33) L 08/15/25 11:00 MCHC 30.0 g/dL (30-55) 08/15/25 11:00 RDW 21.3 % (12.1-15.1) H 08/15/25 11:00 Plt Count 181 10^3/cmm (157-399) 08/15/25 11:00 MPV 9.4 fL (7.4-10.4) 08/15/25 11:00 Neut % (Auto) 52.7 % 08/15/25 11:00 Lymph % (Auto) 33.5 % 08/15/25 11:00 [place] % (Auto) 7.5 % 08/15/25 11:00 Eos % (Auto) 4.3 % 08/15/25 11:00 Baso % (Auto) 1.8 % 08/15/25 11:00 Neut # (Auto) 2.59 10^3/uL (1.8-7.7) 08/15/25 11:00 Lymph # (Auto) 1.7 10^3/uL (0.8-4.8) 08/15/25 11:00 [place] # (Auto) 0.4 10^3/uL (0.2-0.9) 08/15/25 11:00 Eos # (Auto) 0.2 10^3/uL (0.0-0.8) 08/15/25 11:00 Baso # (Auto) 0.1 10^3/uL (0.0-0.1) 08/15/25 11:00 Nucleated RBC % (auto) 0 % 08/15/25 11:00 Nucleated RBCs # 0.0 /100WBC 08/15/25 11:00 PT 18.60 SECONDS (12.1-14.9) H 08/15/25 11:00 INR 1.45 (0.8-1.2) H 08/15/25 11:00 APTT 37.5 SECONDS (23.9-36.7) H 08/15/25 11:00 Sodium 139 mmol/L (136-145) 08/15/25 12:07 Potassium 3.7 mmol/L (3.5-5.1) 08/15/25 12:07 Chloride 107 mmol/L (98-107) 08/15/25 12:07 Carbon Dioxide 21 mmol/L (22-29) L 08/15/25 12:07 Anion Gap 14.7 (5-19) 08/15/25 12:07 BUN 8 mg/dL (8-23) 08/15/25 12:07 Creatinine 0.7 mg/dL (0.7-1.2) 08/15/25 12:07 GFR Calculation 112.5 mL/min (90-130) 08/15/25 12:07 Glucose 129 mg/dL (65-115) H 08/15/25 12:07 POC Glucose 121 mg/dL (70-110) H 08/15/25 11:08 Calculated Osmolality 288 mOsm/kg (285-295) 08/15/25 12:07 Lactic Acid 3.9 mmol/L (0.5-2.2) H 08/15/25 11:00 Calcium 8.2 mg/dL (8.5-10.5) L 08/15/25 12:07 Total Bilirubin 0.8 mg/dL (0.15-1.2) 08/15/25 12:07 AST 14 U/L (0-40) 08/15/25 12:07 ALT 6 U/L (0-41) 08/15/25 12:07 Alkaline Phosphatase 83 U/L (40-130) 08/15/25 12:07 Ammonia 101 umol/L (16-60) H 08/15/25 12:07 Total Protein 7.1 g/dL (6.6-8.7) 08/15/25 12:07 Albumin 2.8 g/dL (3.5-5.2) L 08/15/25 12:07 Globulin 4.3 g/dL (1.3-4.6) 08/15/25 12:07 Urine Color Yellow (Yellow) 08/15/25 11:59 Urine Appearance Clear (CLEAR) 08/15/25 11:59 Urine pH 7.5 (5-7) 08/15/25 11:59 Ur Specific [place] 1.014 (1.005-1.030) 08/15/25 11:59 Urine Protein 1+ (Negative) A 08/15/25 11:59 Urine Glucose (UA) Negative (Normal) 08/15/25 11:59 Urine Ketones Negative (Negative) 08/15/25 11:59 Urine Blood 1+ (Negative) A 08/15/25 11:59 Urine Nitrate Negative (Negative) 08/15/25 11:59 Urine Bilirubin Negative (Negative) 08/15/25 11:59 Urine Urobilinogen 4.0 mg/dL (Negative) H 08/15/25 11:59 Ur Leukocyte Esterase 1+ (Negative) A 08/15/25 11:59 Urine RBC 0-4 /hpf (0-2) H 08/15/25 11:59 Urine WBC 21-50 /hpf (0-5) H 08/15/25 11:59 Ur Squamous Epith Cells 0-4 /hpf (0-5) H 08/15/25 11:59 Amorphous Sediment Not Reportable 08/15/25 11:59 Urine Bacteria Trace /hpf (NONE) 08/15/25 11:59 Urine Mucus Trace /hpf 08/15/25 11:59 Urine Opiates Screen Negative ng/mL (Negative) 08/15/25 11:59 Ur Barbiturates Screen Negative ng/mL (Negative) 08/15/25 11:59 Ur Phencyclidine Scrn Negative ng/mL (Negative) 08/15/25 11:59 Ur Amphetamines Screen Negative ng/mL (Negative) 08/15/25 11:59 U Benzodiazepines Scrn Negative ng/mL (Negative) 08/15/25 11:59 Urine Cocaine Screen Negative ng/mL (Negative) 08/15/25 11:59 U Marijuana (THC) Screen Negative ng/mL (Negative) 08/15/25 11:59 Ethyl Alcohol < 10 mg/dL (0-10) 08/15/25 12:07 All radiology interpretation(s) finalized by discharge Discharge Plan Discharge Patient Disposition: Placed in Observation Clinical Impression: Hepatic encephalopathy, Urinary tract infection Coding Level of Care Code ED [employer] for Lamin Pink
--- OUTSIDE RECORDS SUMMARY | 2025-08-15 11:03 | XMS_ITS | Continuity of Care Document ---
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 08/06/2025 Active Mixed hyperlipidemia E78.2 08/06/2025 Active Hypothyroidism, unspecified E03.9 08/06/2025 Active Results No Results Allergies, adverse reactions, alerts Substance Reaction Date Status Type haloperidol lactate 08/06/2025 Non D rug Immunizations Vaccine Route Date Status COVID-19 Vaccine [...] can't take p/o, if no results from [facility] rectal 1.0 1.0 d 08/06 Active famotidine 20 mg tablet (famotidine) 1, [...] application, topical, Once A Day on Mon, Tue, Fri, to scalp and face, sit 5 [...] rectally if necessary oral 1.0 6.0 h 08/06 Active Arexvy (PF) (rsvpref3 antigen-as01e (pf)) 120 [...] Day - PRN oral 1.0 6.0 h 08/06 Active diclofenac sodium 1 % gel (diclofenac sodium) 1 g, topical, Three Times A Day, Apply to single elbow, wrist, and hand. For hand, includes pain, fingers, and back of hand. topical 1.0 8.0 h 08/06 Active ferrous sulfate 325 mg (65 mg [...] pain. Exempt R52 oral 1.0 8.0 h 08/06 Active ketoconazole 2 % cream (ketoconazole) 1 ALBA, topical, Twice A Day - PRN, Apply to red scaly areas on face for skin irritation topical 1.0 12.0 h 08/06 Active ketoconazole 2 % shampoo (ketoconazole) 1 ALBA, topical, Once A Day on Mon, Wed, Fri, Lather onto scalp and face. Allow to sit 5 minutes before rinsing. topical 1.0 1.0 d 08/06 Active lactulose 10 gram/15 mL solution (lactulose) 30 mL (20Gm), oral, Twice A Day oral 1.0 12.0 h 08/06 Active metformin 1,000 mg tablet (metformin) 1 TAB, oral, Twice A Day oral 1.0 12.0 h 08/06 Active Protonix (pantoprazole) 40 mg tablet,delayed release (DR/EC) (Protonix (pantoprazole)) 1, oral, Twice A Day oral 1.0 12.0 h 08/06 Active sucralfate 1 gram tablet (sucralfate) 1 [...] Pantoprazole oral 1.0 12.0 h 07/17 Active cefdinir 300 mg capsule (cefdinir) 1 cap, oral, Twice A Day, give for 5 days oral 1.0 12.0 h 08/11 Active Dulcolax (bisacodyl) (bisacodyl) 10 mg suppository (Dulcolax (bisacodyl) (bisacodyl)) 1 suppository, rectal, Once A Day - PRN, Give rectally if can't take p/o, if no results from [facility] rectal 1.0 1.0 d 2024 Active Dulcolax (bisacodyl) (bisacodyl) 5 mg tablet,delayed release (DR/EC) (Dulcolax (bisacodyl) (bisacodyl)) 2 tabs/10mg, oral, Once A Day - PRN, Give if no results from [facility] oral 1.0 1.0 d 2024 Active eszopiclone 2 mg tablet (eszopiclone) 1 tab, oral, At Bedtime - PRN, give for insomnia for 14 days; exempt G47.00 oral 1.0 08/20 Active famotidine 20 mg tablet (famotidine) 1 tab, oral, Once A Day - PRN, for indigestion oral 1.0 1.0 d 2024 Active ferrous sulfate 325 mg (65 mg iron) tablet (ferrous sulfate) 1 tab, oral, Once A Day Every Other Day, dosing per TI oral 1.0 1.0 d 2024 Active Fleet Enema (sodium phosphates) 19-7 gram/118 mL enema (Fleet Enema (sodium phosphates)) 1 application, rectal, Once A Day - PRN, Give fleets if no results from [facility] and Dulcolax rectal 1.0 1.0 d 2024 Active gabapentin 300 mg capsule (gabapentin) 1 cap, oral, Four Times A Day, give at 7am, 11am, 3pm, and 7pm oral 1.0 6.0 h 2024 Active hydrocodone-praveen taminophen 5-325 mg tablet (hydrocodone-ac etaminophen) 1 tab, oral, Every 8 Hours - PRN, for moderate-shashank re pain; exempt R52 oral 1.0 8.0 h 2024 Active ketoconazole 2 % cream (ketoconazole) 1 alba, topical, Once A Day topical 1.0 1.0 d 2024 Active lactulose 10 gram/15 mL solution (lactulose) 30 mL (20 gram), oral, Twice A Day oral 1.0 12.0 h 2024 Active levothyroxine 25 mcg tablet (levothyroxine) 1 tab, oral, Once A Day oral 1.0 1.0 d 2024 Active metformin 1,000 mg tablet (metformin) 1 tab, oral, Twice A Day oral 1.0 12.0 h 2024 Active Milk of Magnesia (magnesium hydroxide) 400 mg/5 mL suspension (Milk of Magnesia (magnesium hydroxide)) 30 ml, oral, Every 72 Hours - PRN, if no BM in 3 daysDO NOT GIVE TO RENAL PATIENTS--GO TO DULCOLAX ORDERS oral 1.0 72.0 h 2024 Active omeprazole 20 mg capsule,delayed release(DR/EC) (omeprazole) 1 cap, oral, Twice A Day, TI for pantoprazole oral 1.0 12.0 h 2024 Active potassium chloride 20 mEq packet (potassium chloride) 1 packet, oral, Twice A Day, mix as directed oral 1.0 12.0 h 2024 Active simvastatin 40 mg tablet (simvastatin) 1 tab, oral, At Bedtime oral 1.0 2024 Active sucralfate 1 gram tablet (sucralfate) 1 tab, oral, Before Meals and At Bedtime oral 1.0 2024 Active Tylenol (acetaminophen) 325 mg tablet (Tylenol (acetaminophen) ) 2 tabs/650mg, oral, Every 6 Hours - PRN, as needed for PRN pain/increase d tempMay give rectally if necessary oral 1.0 6.0 h 2024 Active Vital Signs Date Vital Result Comment 07/10/2025 08:31 AM Temperature (8310-5) 98.5 [degF] Oxygen Saturation (88746-6) 95 % Respiratory Rate (9279-1) 16 /min Heart Rate (8867-4) 90 /min Blood Pressure Systolic (8480-6) 115 mm[Hg] Blood Pressure Diastolic (8462-4) 61 mm[Hg] 07/03/2025 10:44 AM Temperature (8310-5) 98 [degF] Oxygen Saturation (67266-1) 97 % Respiratory Rate (9279-1) 16 /min Heart Rate (8867-4) 80 /min Blood Pressure Systolic (8480-6) 120 mm[Hg] Blood Pressure Diastolic (8462-4) 66 mm[Hg] 05/11/2025 02:51 AM Temperature (8310-5) 97.4 [degF] Oxygen Saturation (72681-8) 95 % Respiratory Rate (9279-1) 15 /min Heart Rate (8867-4) 105 /min Blood Pressure Systolic (8480-6) 120 mm[Hg] Blood Pressure Diastolic (8462-4) 63 mm[Hg] 06/12/2025 04:42 PM Body Weight (61173-4) 174 [lb_av] Body Mass Index (36686-8) 26.45 kg/m2 07/08/2025 08:25 AM Body Weight (01636-4) 174.8 [lb_av ] Body Mass Index (59285-5) 26.58 kg/m2 05/22/2025 01:18 PM Body Weight (54407-8) 166.8 [lb_av ] Body Mass Index (13391-6) 25.36 kg/m2 05/08/2025 01:36 PM Body Weight (68954-8) 166.8 [lb_av ] Body Mass Index (28388-0) 25.36 kg/m2 06/10/2025 12:56 PM Body Weight (96626-2) 176 [lb_av] Body Mass Index (38785-3) 26.76 kg/m2 06/19/2025 07:04 AM Temperature (8310-5) 98.4 [degF] Oxygen Saturation (93975-8) 94 % Respiratory Rate (9279-1) 17 /min Heart Rate (8867-4) 92 /min Blood Pressure Systolic (8480-6) 110 mm[Hg] Blood Pressure Diastolic (8462-4) 52 mm[Hg] 05/11/2025 10:54 AM Temperature (8310-5) 98.3 [degF] Oxygen Saturation (43445-3) 93 % Respiratory Rate (9279-1) 20 /min Heart Rate (8867-4) 98 /min Blood Pressure Systolic (8480-6) 131 mm[Hg] Blood Pressure Diastolic (8462-4) 64 mm[Hg] 05/29/2025 03:31 PM Body Weight (33605-1) 165.3 [lb_av ] Body Mass Index (60714-4) 25.13 kg/m2 06/13/2025 08:46 AM Body Weight (95235-9) 175.4 [lb_av ] Body Mass Index (94093-9) 26.67 kg/m2 06/11/2025 08:35 AM Body Weight (93581-5) 174 [lb_av] Body Mass Index (83001-3) 26.45 kg/m2 06/05/2025 07:53 AM Temperature (8310-5) 97.3 [degF] Oxygen Saturation (80197-8) 97 % Respiratory Rate (9279-1) 16 /min Heart Rate (8867-4) 100 /min Blood Pressure Systolic (8480-6) 118 mm[Hg] Blood Pressure Diastolic (8462-4) 62 mm[Hg] 06/07/2025 11:46 AM Body Weight (76360-0) 176.2 [lb_av ] Body Mass Index (20791-5) 26.79 kg/m2 05/06/2025 05:52 PM Body Height (8302-2) 68 [in_us] 06/26/2025 12:50 PM Temperature (8310-5) 98.4 [degF] Oxygen Saturation (55939-6) 98 % Respiratory Rate (9279-1) 16 /min Heart Rate (8867-4) 86 /min Blood Pressure Systolic (8480-6) 118 mm[Hg] Blood Pressure Diastolic (8462-4) 60 mm[Hg] 05/07/2025 01:02 PM Body Weight (77154-5) 166.2 [lb_av ] Body Mass Index (87281-4) 25.27 kg/m2 05/06/2025 05:51 PM Body Weight (36546-3) 167.7 [lb_av ] Body Mass Index (58522-8) 25.5 kg/m2 05/29/2025 12:57 PM Temperature (8310-5) 97 [degF] Oxygen Saturation (53680-5) 98 % Respiratory Rate (9279-1) 18 /min Heart Rate (8867-4) 70 /min Blood Pressure Systolic (8480-6) 128 mm[Hg] Blood Pressure Diastolic (8462-4) 72 mm[Hg] 05/09/2025 11:16 AM Body Weight (30891-5) 167.6 [lb_av ] Body Mass Index (77036-7) 25.48 kg/m2 06/12/2025 02:11 PM Temperature (8310-5) 98.9 [degF] Oxygen Saturation (38319-9) 96 % Respiratory Rate (9279-1) 16 /min Heart Rate (8867-4) 68 /min Blood Pressure Systolic (8480-6) 136 mm[Hg] Blood Pressure Diastolic (8462-4) 72 mm[Hg] 05/22/2025 11:29 AM Temperature (8310-5) 97.5 [degF] Oxygen Saturation (08535-1) 97 % Respiratory Rate (9279-1) 20 /min Heart Rate (8867-4) 72 /min Blood Pressure Systolic (8480-6) 126 mm[Hg] Blood Pressure Diastolic (8462-4) 80 mm[Hg] 05/15/2025 05:22 PM Body Weight (39385-8) 167.1 [lb_av ] Body Mass Index (87923-8) 25.4 kg/m2 07/17/2025 02:35 PM Body Weight (63776-5) 175 [lb_av] Body Mass Index (08192-6) 26.61 kg/m2 07/17/2025 01:16 PM Temperature (8310-5) 98.2 [degF] Oxygen Saturation (75784-1) 96 % Respiratory Rate (9279-1) 20 /min Heart Rate (8867-4) 79 /min Blood Pressure Systolic (8480-6) 111 mm[Hg] Blood Pressure Diastolic (8462-4) 56 mm[Hg] 07/17/2025 08:46 PM Temperature (8310-5) 98 [degF] Oxygen Saturation (45837-5) 96 % Respiratory Rate (9279-1) 18 /min Heart Rate (8867-4) 77 /min Blood Pressure Systolic (8480-6) 110 mm[Hg] Blood Pressure Diastolic (8462-4) 58 mm[Hg] 07/18/2025 07:02 AM Temperature (8310-5) 98.5 [degF] Oxygen Saturation (39761-9) 98 % Respiratory Rate (9279-1) 16 /min Heart Rate (8867-4) 78 /min Blood Pressure Systolic (8480-6) 118 mm[Hg] Blood Pressure Diastolic (8462-4) 62 mm[Hg] 07/18/2025 04:13 PM Body Weight (39667-7) 174.8 [lb_av ] Body Mass Index (46671-0) 26.58 kg/m2 07/18/2025 06:24 PM Temperature (8310-5) 98 [degF] Oxygen Saturation (32725-3) 96 % Respiratory Rate (9279-1) 18 /min Heart Rate (8867-4) 65 /min Blood Pressure Systolic (8480-6) 110 mm[Hg] Blood Pressure Diastolic (8462-4) 56 mm[Hg] 07/19/2025 07:26 AM Temperature (8310-5) 98.2 [degF] Oxygen Saturation (64716-7) 99 % Respiratory Rate (9279-1) 16 /min Heart Rate (8867-4) 66 /min Blood Pressure Systolic (8480-6) 118 mm[Hg] Blood Pressure Diastolic (8462-4) 69 mm[Hg] 07/19/2025 01:45 PM Body Weight (88822-1) 179.6 [lb_av ] Body Mass Index (61845-0) 27.31 kg/m2 07/19/2025 08:58 PM Temperature (8310-5) 98.6 [degF] Oxygen Saturation (67450-1) 99 % Respiratory Rate (9279-1) 15 /min Heart Rate (8867-4) 74 /min Blood Pressure Systolic (8480-6) 110 mm[Hg] Blood Pressure Diastolic (8462-4) 70 mm[Hg] 07/20/2025 10:08 AM Body Weight (74581-5) 176.6 [lb_av ] Body Mass Index (21468-2) 26.85 kg/m2 07/20/2025 10:09 AM Temperature (8310-5) 98.7 [degF] Oxygen Saturation (05844-9) 93 % Respiratory Rate (9279-1) 22 /min Heart Rate (8867-4) 60 /min Blood Pressure Systolic (8480-6) 139 mm[Hg] Blood Pressure Diastolic (8462-4) 66 mm[Hg] 07/20/2025 09:14 PM Temperature (8310-5) 97.6 [degF] Oxygen Saturation (00862-5) 95 % Respiratory Rate (9279-1) 20 /min Heart Rate (8867-4) 64 /min Blood Pressure Systolic (8480-6) 127 mm[Hg] Blood Pressure Diastolic (8462-4) 61 mm[Hg] 07/21/2025 03:03 PM Temperature (8310-5) 97.8 [degF] Oxygen Saturation (93979-4) 95 % Respiratory Rate (9279-1) 16 /min Heart Rate (8867-4) 68 /min Blood Pressure Systolic (8480-6) 116 mm[Hg] Blood Pressure Diastolic (8462-4) 68 mm[Hg] 07/21/2025 09:25 PM Temperature (8310-5) 98.1 [degF] Oxygen Saturation (38815-4) 95 % Respiratory Rate (9279-1) 16 /min Heart Rate (8867-4) 70 /min Blood Pressure Systolic (8480-6) 112 mm[Hg] Blood Pressure Diastolic (8462-4) 70 mm[Hg] 07/22/2025 12:20 PM Temperature (8310-5) 98.9 [degF] Oxygen Saturation (66884-1) 97 % Respiratory Rate (9279-1) 20 /min Heart Rate (8867-4) 85 /min Blood Pressure Systolic (8480-6) 107 mm[Hg] Blood Pressure Diastolic (8462-4) 61 mm[Hg] 07/22/2025 08:22 PM Temperature (8310-5) 98.6 [degF] Oxygen Saturation (49552-6) 97 % Respiratory Rate (9279-1) 18 /min Heart Rate (8867-4) 88 /min Blood Pressure Systolic (8480-6) 110 mm[Hg] Blood Pressure Diastolic (8462-4) 64 mm[Hg] 07/23/2025 04:27 PM Temperature (8310-5) 98.5 [degF] Oxygen Saturation (15744-0) 96 % Respiratory Rate (9279-1) 20 /min Heart Rate (8867-4) 93 /min Blood Pressure Systolic (8480-6) 138 mm[Hg] Blood Pressure Diastolic (8462-4) 83 mm[Hg] 07/24/2025 12:24 PM Temperature (8310-5) 97.8 [degF] Oxygen Saturation (89616-9) 97 % Respiratory Rate (9279-1) 18 /min Heart Rate (8867-4) 84 /min Blood Pressure Systolic (8480-6) 142 mm[Hg] Blood Pressure Diastolic (8462-4) 80 mm[Hg] 07/24/2025 10:28 PM Temperature (8310-5) 97.8 [degF] Oxygen Saturation (89319-6) 98 % Respiratory Rate (9279-1) 18 /min Heart Rate (8867-4) 88 /min Blood Pressure Systolic (8480-6) 140 mm[Hg] Blood Pressure Diastolic (8462-4) 78 mm[Hg] 07/25/2025 06:42 AM Temperature (8310-5) 98 [degF] Oxygen Saturation (46061-2) 97 % Respiratory Rate (9279-1) 16 /min Heart Rate (8867-4) 80 /min Blood Pressure Systolic (8480-6) 132 mm[Hg] Blood Pressure Diastolic (8462-4) 74 mm[Hg] 07/25/2025 07:24 PM Temperature (8310-5) 97 [degF] Oxygen Saturation (00752-2) 98 % Respiratory Rate (9279-1) 16 /min Heart Rate (8867-4) 100 /min Blood Pressure Systolic (8480-6) 101 mm[Hg] Blood Pressure Diastolic (8462-4) 66 mm[Hg] 07/26/2025 06:35 AM Temperature (8310-5) 98.2 [degF] Oxygen Saturation (36547-4) 97 % Respiratory Rate (9279-1) 15 /min Heart Rate (8867-4) 85 /min Blood Pressure Systolic (8480-6) 110 mm[Hg] Blood Pressure Diastolic (8462-4) 72 mm[Hg] 07/27/2025 06:33 AM Temperature (8310-5) 98.6 [degF] Oxygen Saturation (81670-0) 98 % Respiratory Rate (9279-1) 16 /min Heart Rate (8867-4) 88 /min Blood Pressure Systolic (8480-6) 118 mm[Hg] Blood Pressure Diastolic (8462-4) 62 mm[Hg] 07/27/2025 08:38 PM Temperature (8310-5) 98.4 [degF] Oxygen Saturation (32702-3) 97 % Respiratory Rate (9279-1) 17 /min Heart Rate (8867-4) 79 /min Blood Pressure Systolic (8480-6) 119 mm[Hg] Blood Pressure Diastolic (8462-4) 76 mm[Hg] 07/28/2025 06:39 AM Temperature (8310-5) 98.1 [degF] Oxygen Saturation (26434-1) 98 % Respiratory Rate (9279-1) 16 /min Heart Rate (8867-4) 66 /min Blood Pressure Systolic (8480-6) 122 mm[Hg] Blood Pressure Diastolic (8462-4) 68 mm[Hg] 08/06/2025 05:54 PM Temperature (8310-5) 98.1 [degF] Oxygen Saturation (36351-5) 97 % Respiratory Rate (9279-1) 21 /min Heart Rate (8867-4) 86 /min Blood Pressure Systolic (8480-6) 102 mm[Hg] Blood Pressure Diastolic (8462-4) 65 mm[Hg] Body Weight (18404-5) 170.6 [lb_av] Body Mass Index (83220-9) 25.94 kg/m2 08/07/2025 03:04 PM Body Weight (22134-8) 183.6 [lb_av ] Body Mass Index (88325-6) 27.91 kg/m2 08/07/2025 09:25 AM Temperature (8310-5) 98.2 [degF] Oxygen Saturation (78371-7) 97 % Respiratory Rate (9279-1) 19 /min Heart Rate (8867-4) 87 /min Blood Pressure Systolic (8480-6) 110 mm[Hg] Blood Pressure Diastolic (8462-4) 57 mm[Hg] 08/07/2025 11:37 PM Temperature (8310-5) 97.2 [degF] Respiratory Rate (9279-1) 17 /min Heart Rate (8867-4) 89 /min Blood Pressure Systolic (8480-6) 117 mm[Hg] Blood Pressure Diastolic (8462-4) 71 mm[Hg] 08/08/2025 06:49 AM Temperature (8310-5) 100.2 [degF] Oxygen Saturation (18840-5) 98 % Respiratory Rate (9279-1) 20 /min Heart Rate (8867-4) 67 /min Blood Pressure Systolic (8480-6) 120 mm[Hg] Blood Pressure Diastolic (8462-4) 60 mm[Hg] 08/08/2025 07:24 AM Body Weight (65004-1) 180.4 [lb_av ] Body Mass Index (05925-1) 27.43 kg/m2 08/09/2025 06:41 AM Body Weight (47350-0) 179.8 [lb_av ] Body Mass Index (04567-1) 27.34 kg/m2 08/09/2025 03:19 AM Temperature (8310-5) 97 [degF] Respiratory Rate (9279-1) 16 /min Heart Rate (8867-4) 74 /min 08/09/2025 03:21 AM Oxygen Saturation (74364-0) 99 % Blood Pressure Systolic (8480-6) 135 mm[Hg] Blood Pressure Diastolic (8462-4) 64 mm[Hg] 08/09/2025 06:47 AM Temperature (8310-5) 98.4 [degF] Oxygen Saturation (51449-5) 98 % Respiratory Rate (9279-1) 20 /min Heart Rate (8867-4) 86 /min Blood Pressure Systolic (8480-6) 106 mm[Hg] Blood Pressure Diastolic (8462-4) 59 mm[Hg] 08/09/2025 08:22 PM Temperature (8310-5) 98.7 [degF] Oxygen Saturation (20024-6) 96 % Respiratory Rate (9279-1) 16 /min Heart Rate (8867-4) 73 /min Blood Pressure Systolic (8480-6) 122 mm[Hg] Blood Pressure Diastolic (8462-4) 67 mm[Hg] 08/10/2025 07:25 AM Temperature (8310-5) 98 [degF] Oxygen Saturation (59382-8) 97 % Respiratory Rate (9279-1) 18 /min Heart Rate (8867-4) 62 /min Blood Pressure Systolic (8480-6) 120 mm[Hg] Blood Pressure Diastolic (8462-4) 72 mm[Hg] 08/10/2025 09:41 AM Body Weight (31362-0) 179 [lb_av] Body Mass Index (49453-2) 27.21 kg/m2 08/10/2025 10:37 PM Temperature (8310-5) 98.5 [degF] Oxygen Saturation (96656-1) 96 % Respiratory Rate (9279-1) 16 /min Heart Rate (8867-4) 86 /min Blood Pressure Systolic (8480-6) 102 mm[Hg] Blood Pressure Diastolic (8462-4) 57 mm[Hg] 08/11/2025 06:16 AM Body Weight (13351-2) 178.5 [lb_av ] Body Mass Index (09978-7) 27.14 kg/m2 08/11/2025 06:15 AM Temperature (8310-5) 98.6 [degF] Oxygen Saturation (39407-4) 90 % Respiratory Rate (9279-1) 17 /min Heart Rate (8867-4) 76 /min Blood Pressure Systolic (8480-6) 110 mm[Hg] Blood Pressure Diastolic (8462-4) 50 mm[Hg] 08/11/2025 07:53 PM Temperature (8310-5) 97.6 [degF] Oxygen Saturation (92399-1) 93 % Respiratory Rate (9279-1) 18 /min Heart Rate (8867-4) 70 /min Blood Pressure Systolic (8480-6) 128 mm[Hg] Blood Pressure Diastolic (8462-4) 64 mm[Hg] 08/12/2025 10:09 AM Temperature (8310-5) 99.4 [degF] Oxygen Saturation (26274-0) 94 % Respiratory Rate (9279-1) 20 /min Heart Rate (8867-4) 73 /min Blood Pressure Systolic (8480-6) 101 mm[Hg] Blood Pressure Diastolic (8462-4) 54 mm[Hg] 08/12/2025 08:14 PM Oxygen Saturation (88650-2) 96 % Respiratory Rate (9279-1) 18 /min Blood Pressure Systolic (8480-6) 130 mm[Hg] Blood Pressure Diastolic (8462-4) 74 mm[Hg] 08/12/2025 08:13 PM Temperature (8310-5) 97 [degF] Heart Rate (8867-4) 84 /min 08/13/2025 06:40 AM Temperature (8310-5) 98.7 [degF] Oxygen Saturation (44723-1) 97 % Respiratory Rate (9279-1) 20 /min Heart Rate (8867-4) 84 /min Blood Pressure Systolic (8480-6) 110 mm[Hg] Blood Pressure Diastolic (8462-4) 59 mm[Hg] 08/13/2025 07:31 PM Temperature (8310-5) 97 [degF] 08/13/2025 07:32 PM Heart Rate (8867-4) 78 /min 08/13/2025 07:33 PM Oxygen Saturation (22345-8) 97 % Respiratory Rate (9279-1) 16 /min Blood Pressure Systolic (8480-6) 105 mm[Hg] Blood Pressure Diastolic (8462-4) 62 mm[Hg] 08/14/2025 07:08 AM Temperature (8310-5) 98.5 [degF] Oxygen Saturation (93597-3) 97 % Respiratory Rate (9279-1) 23 /min Heart Rate (8867-4) 95 /min Blood Pressure Systolic (8480-6) 109 mm[Hg] Blood Pressure Diastolic (8462-4) 71 mm[Hg] 08/14/2025 09:39 PM Respiratory Rate (9279-1) 18 /min Heart Rate (8867-4) 64 /min 08/14/2025 09:40 PM Oxygen Saturation (24350-9) 96 % Blood Pressure Systolic (8480-6) 121 mm[Hg] Blood Pressure Diastolic (8462-4) 72 mm[Hg] 08/15/2025 07:02 AM Temperature (8310-5) 98.3 [degF] Oxygen Saturation (45931-4) 96 % Respiratory Rate (9279-1) 20 /min Heart Rate (8867-4) 82 /min Blood Pressure Systolic (8480-6) 110 mm[Hg] Blood Pressure Diastolic (8462-4) 67 mm[Hg] 08/15/2025 06:07 AM Body Weight (13970-0) 171.2 [lb_av ] Body Mass Index (20265-0) 26.03 kg/m2 Social History No smoking Hx information available Encounters Type CPT Code Date Location Provider Indication s encounter report 03/14/2025 12:3 1 PM - 07/15/2025 03:13 AM Demarcus OLIVIA encounter report 03/14/2025 12:3 1 PM - 07/28/2025 08:16 PM Demarcus Poole DO 01 Advance Directives Directive Description Verification Date Supporting Document(s) Resuscitation
--- NOTE | 2025-08-15 11:07 | ECG_ITS ---
[facility] Test Date: 2025-08-15 Pat Name: Bernardino Jackson Department: Room: Gender: Male Personnel Monitor: : 1960 Requested By: Chelle Lincoln Order Number: [id number] Avril MD: BRENNA ALMANZAR Measurements Intervals [place] Rate: 83 P: -32 IA: 161 QRS: 18 QRSD: 80 T: 55 QT: 415 QTc: 488 Interpretive Statements SINUS RHYTHM Compared to ECG 07/29/2025 00:44:41 Atrial fibrillation no longer present Ventricular premature complex(es) no longer present Aberrant conduction of supraventricular beat(s) no longer present ST (T wave) deviation no longer present Electronically Signed On 08-15-2025 16:48:43 CDT by BRENNA ALMANZAR [email or web address]
[2025-08-15 11:14] LABS: Hematocrit 30.7 % (37-53); Hemoglobin 9.20 g/dL (11.27-16.99); Mean Corpuscular HGB Conc 30.0 g/dL (30-55); Mean Corpuscular Hemoglobin 24.1 pg (27-33); Mean Corpuscular Volume 80.4 fl (82-101); Nucleated Red Blood Cells % 0 %; Platelet Count 181 10^3/cmm (157-399); Red Blood Count 3.82 10^6/uL (3.85-5.65); White Blood Count 4.92 10^3/uL (3.29-11.43)
[2025-08-15 11:30] LABS: Lactic Sepsis W/Reflex 3.9 mmol/L (0.5-2.2)
[2025-08-15 11:52] LABS: INR 1.45 (0.8-1.2); Prothrombin Time 18.60 SECONDS (12.1-14.9)
[2025-08-15 11:53] LABS: Partial Thromboplastin Time 37.5 SECONDS (23.9-36.7)
[2025-08-15 12:11] LABS: Glucose Urine UA Negative (Normal); Nitrate Urine Negative (Negative); Specific Gravity, Urine 1.014 (1.005-1.030)
[2025-08-15 12:19] LABS: PCP Screen Urine Negative (Negative)
[2025-08-15 12:29] LABS: Alanine Aminotransferase 6 U/L (0-41); Albumin Level 2.8 g/dL (3.5-5.2); Alkaline Phosphatase 83 U/L (40-130); Anion Gap 14.7 (5-19); Aspartate Amino Transferase 14 U/L (0-40); Blood Urea Nitrogen 8 mg/dL (8-23); Calcium 8.2 mg/dL (8.5-10.5); Carbon Dioxide 21 mmol/L (22-29); Chloride 107 mmol/L (98-107); Creatinine Clr Calc Pharmacy 103.7989; Globulin 4.3 g/dL (1.3-4.6); Glucose 129 mg/dL (65-115); Osmolality Calculated 288 mOsm/kg (285-295); Potassium 3.7 mmol/L (3.5-5.1); Sodium 139 mmol/L (136-145); Total Protein 7.1 g/dL (6.6-8.7)
[2025-08-15 12:30] LABS: Ammonia 101 umol/L (16-60)
[2025-08-15 12:35] LABS: Alcohol Level < 10 mg/dL (0-10)
[2025-08-15 12:40] LABS: Add Urine Microscopic? YES
[2025-08-15 12:55] LABS: Reflex Lactate Order REFLEX LACTIC ORDERD
[2025-08-15] MEDS: lactulose oral liq 20 gm/30 mL UDC 30 GM PO (13:00)
[2025-08-15] MEDS: cefTRIAXone 1,000 mg SDV 1000 MG IVP (13:03)
--- NOTE | 2025-08-15 13:18 | PC.PHAR ---
Pt is from [facility]
[2025-08-15 14:43] LABS: Lactic Acid level (Lactate) 3.2 mmol/L (0.5-2.2)
--- NOTE | 2025-08-15 16:07 | PM.HP ---
Providers/Chief Complaint Admitting Physician: Loreta Chan MD Primary Care Provider: Demarcus Poole DO Chief Complaint: slurred speech History of Present Illness Bernardino Jackson is a 65 year old male with history of alcohol abuse, liver cirrhosis, history of GI bleed, history of duodenal ulcers, history of colon polyps, chronic anemia, history of nephrolithiasis, type 2 diabetes mellitus, atrial fibrillation, insomnia, and history of prostate cancer presenting with slurred speech. The doctor at the intermediate had woken him up from sleep and he was noted to have slurred speech. His speech was back to baseline when he arrived to the ED. He stated that his speech was slurred because he had difficulty waking up. He did not have any focal weakness or numbness. CT head did not show any acute intracranial process. His ammonia was elevated 101. He was given lactulose in the ED Review of Systems General: Reports: 10 or more systems reviewed and unremarkable except in HPI and below Medications/Allergies Home Medications ?Medication ?Instructions ?Recorded ?Confirmed ?Last Taken ?Type metformin 1,000 mg tablet 1,000 mg PO BID 11/18/19 08/15/25 08/15/25 History acetaminophen 325 mg tablet 650 mg PO Q6H PRN Pain/increased 04/26/25 08/15/25 08/08/25 History (Tylenol) temp bisacodyl 10 mg rectal suppository 10 mg MO DAILY PRN constipation 04/26/25 08/15/25 Unknown History (Dulcolax (bisacodyl)) hydrocodone 5 mg-acetaminophen 325 1 tab PO Q8H PRN Pain 05/28/25 08/15/25 08/11/25 History mg tablet eszopiclone 1 mg tablet (Lunesta) 1 mg PO BEDTIME 07/15/25 08/15/25 08/14/25 History gabapentin 300 mg capsule 300 mg PO TID 07/15/25 08/15/25 08/15/25 History lactulose 10 gram/15 mL oral 30 ml PO BID 07/15/25 08/15/25 08/14/25 History solution pantoprazole 40 mg tablet,delayed 40 mg PO BID #60 tabs 07/16/25 08/15/25 Unknown Rx release sucralfate 1 gram tablet 1 g PO AC&BEDTIME #60 tabs 07/16/25 08/15/2525 Rx bisacodyl 5 mg tablet,delayed 10 mg PO DAILY PRN Constipation 08/15/25 08/15/25 Unknown History release (Dulcolax (bisacodyl)) ferrous sulfate 324 mg (65 mg 324 mg PO .QOD 08/15/25 08/15/25 08/14/25 History iron) tablet,delayed release levothyroxine 25 mcg tablet 25 mcg PO DAILY 08/15/25 08/15/25 08/15/25 History magnesium hydroxide 400 mg/5 mL 30 ml PO DAILY PRN Constipation 08/15/25 08/15/25 Unknown History oral suspension (Milk of Magnesia) omeprazole 20 mg capsule,delayed 20 mg PO BID 08/15/25 08/15/25 08/15/25 History release potassium chloride 20 mEq oral 20 meq PO BID 08/15/25 08/15/25 08/15/25 History packet simvastatin 40 mg tablet 40 mg PO BEDTIME 08/15/25 08/15/25 08/14/25 History sodium phosphates 19 gram-7 118 ml MO DAILY PRN Constipation 08/15/25 08/15/25 Unknown History gram/118 mL enema (Fleet Enema) Allergies Allergy/AdvReac Type Severity Reaction Status Date / Time No Known Allergies Allergy Verified 07/28/25 20:26 PFSH Acute PFSH: Medical History (Updated 08/15/25 @ 16:19 by Loreta Chan MD) History of colon polyps Prostate cancer Liver cirrhosis Insomnia Type 2 diabetes mellitus Hypothyroidism Surgical History H/O prostatectomy History of esophagogastroduodenoscopy Family History Mother Diabetes mellitus, type 2 Social History Smoking and tobacco/nicotine status: never used tobacco/nicotine Alcohol intake: former Substance/Drug Use: unknown Vitals/I&O/Wt Last Vital Signs Temp 98.3 F 08/15/25 15:53 Pulse 87 08/15/25 15:53 Resp 17 08/15/25 15:53 BP 108/68 08/15/25 15:53 Pulse Ox 97 08/15/25 15:53 O2 Del Method Room Air 08/15/25 15:53 08/15/25 08/15/25 08/15/25 06:59 14:59 22:59 Intake Total 500 / 500 Balance 500 / 500 Weight last 48 hrs Weight 95.254 kg Weight 95.254 kg Physical Exam Narrative: GEN: Alert but confused HEENT: Normocephalic, atraumatic, PERRLA, EOMI, no scleral icterus Neck: Supple Respiratory: No respiratory distress, clear to auscultation Cardio: Regular rate and rhythm, S1, S2, no murmur noted Abdomen: Soft, nontender, nondistended, normal active bowel sounds Extremity: Warm, no edema Skin: No jaundice, no rash or lesion Neuro: Alert, oriented only to person, difficult difficulty following complex commands, no focal motor deficits, sensation grossly intact Data 08/15/25 11:00 08/15/25 12:07 Other Labs: Short CBC 08/15/25 Range/Units 11:00 WBC 4.92 (3.29-11.43) 10^3/uL Hgb 9.20 L (11.27-16.99) g/dL Hct 30.7 L (37-53) % Plt Count 181 (157-399) 10^3/cmm BMP 08/15/25 08/15/25 11:00 12:07 Sodium Cancelled 139 Potassium Cancelled 3.7 Chloride Cancelled 107 Carbon Dioxide Cancelled 21 L BUN Cancelled 8 Creatinine Cancelled 0.7 Glucose Cancelled 129 H Calcium Cancelled 8.2 L Liver Function 08/15/25 08/15/25 Range/Units 11:00 12:07 Total Bilirubin Cancelled 0.8 AST Cancelled 14 ALT Cancelled 6 Alkaline Phosphatase Cancelled 83 Albumin Cancelled 2.8 L Urine 08/15/25 Range/Units 11:59 Urine Color Yellow (Yellow) Urine Appearance Clear (CLEAR) Urine pH 7.5 (5-7) Ur Specific [place] 1.014 (1.005-1.030) Urine Protein 1+ A (Negative) Urine Glucose (UA) Negative (Normal) Micro: Microbiology 08/15/25 11:19 Blood Culture - Preliminary Blood SPECIMEN COLLECTED 08/15/25 11:15 Blood Culture - Preliminary Blood SPECIMEN COLLECTED A&P Assessment and plan 1. Hepatic encephalopathy: Alert but oriented only to person and date. Slurred speech has resolved He did not have any focal neurological deficits to suggest an acute stroke Serum ammonia was elevated to 101 Given lactulose in the ED, titrate for 2-3 bowel movements a day 2. Liver cirrhosis: He has a history of alcohol abuse 3. Chronic anemia: Iron deficiency anemia Reported history of duodenal ulcers Denies any bleeding at this time Continue Protonix and sucralfate Continue oral iron supplementation Monitor hemoglobin 4. Iron deficiency: 5. Type 2 diabetes mellitus: Sliding scale insulin 6. Hypothyroidism: TSH was normal in April 2025 Levothyroxine Plan: History of prostate cancer Status post prostatectomy PDMP PDMP Reviewed: Not Reviewed Attestations Medical Necessity Statement*: He needs initial hospitalization for lactulose and mental status monitoring. Coding Level of Care Code Acute Code for g Fwd Diagnoses Hepatic encephalopathy K76.82 Liver cirrhosis K74.60 Chronic anemia D64.9 Iron deficiency E61.1 Type 2 diabetes mellitus E11.9 Hypothyroidism E03.9
[2025-08-15] MEDS: lactulose oral liq 20 gm/30 mL UDC PO (16:46)
[2025-08-15] MEDS: morphine 4 mg/mL SDV 1 mL 2 MG IVP (18:06)
[2025-08-15 18:11] LABS: Procalcitonin 0.06 ng/mL (0-0.5)
--- NOTE | 2025-08-15 18:24 | PC.NURSE ---
incontinent pt was
[2025-08-15] MEDS: ATORVASTATIN 20 MG TABLET PO (21:23)
[2025-08-16 02:00] VITALS: BP 100/66; PULSE 85; RESP 18; TEMP 36.6; O2SAT 95
[2025-08-16 05:04] LABS: Alanine Aminotransferase 6 U/L (0-41); Albumin Level 2.6 g/dL (3.5-5.2); Alkaline Phosphatase 74 U/L (40-130); Anion Gap 13.4 (5-19); Aspartate Amino Transferase 13 U/L (0-40); Blood Urea Nitrogen 7 mg/dL (8-23); Calcium 7.9 mg/dL (8.5-10.5); Carbon Dioxide 20 mmol/L (22-29); Chloride 111 mmol/L (98-107); Creatinine Clr Calc Pharmacy 103.7989; Globulin 4.0 g/dL (1.3-4.6); Glucose 87 mg/dL (65-115); Osmolality Calculated 289 mOsm/kg (285-295); Potassium 3.4 mmol/L (3.5-5.1); Sodium 141 mmol/L (136-145); Total Protein 6.6 g/dL (6.6-8.7)
[2025-08-16] MEDS: lactulose oral liq 20 gm/30 mL UDC PO (05:04)
[2025-08-16 06:00] VITALS: BP 104/65; PULSE 79; RESP 16; TEMP 36.6; O2SAT 92
[2025-08-16 07:48] VITALS: BP 114/70; PULSE 83; RESP 17; TEMP 36.6; O2SAT 95
[2025-08-16 08:00] VITALS: BP 102/64; PULSE 85; RESP 16; TEMP 36.7
[2025-08-16] MEDS: ferrous sulfate EC 325 mg Tablet PO (09:03)
--- NOTE | 2025-08-16 11:32 | PM.DCS ---
Discharge Providers Date of Admission: 08/15/25 13:28 Date of Discharge: August 16, 2025 Attending Provider at Admission: Loreta Chan MD Attending Provider at Discharge: Loreta Chan MD Consults: None Primary Care Provider: Demarcus Poole DO Diagnoses at Discharge Discharge Diagnosis 1. Hepatic encephalopathy: 2. Liver cirrhosis: 3. Chronic anemia: 4. Iron deficiency: 5. Type 2 diabetes mellitus: 6. Hypothyroidism: Reason for Visit Reason for Visit: slurred speech Brief History: This is a 65 year old male with history of alcohol abuse, liver cirrhosis, history of GI bleed, history of duodenal ulcers, history of colon polyps, chronic anemia, history of nephrolithiasis, type 2 diabetes mellitus, atrial fibrillation, insomnia, and history of prostate cancer presenting with slurred speech. [facility] had [facility] him up from sleep and he was noted to have slurred speech. His speech was back to baseline when he arrived to the ED. He stated that his speech was slurred because he had difficulty waking up. He did not have any focal weakness or numbness. CT head did not show any acute intracranial process. His ammonia was elevated 101. Hospital Course Hospital Course He was given lactulose and his mental status has improved. He is back to his baseline. Physical Exam Narrative: GEN: Alert, no acute distress HEENT: Normocephalic, atraumatic, PERRLA, EOMI, no scleral icterus Neck: Supple Respiratory: No respiratory distress, clear to auscultation Cardio: Regular rate and rhythm, S1, S2, no murmur noted Abdomen: Soft, nontender, nondistended, normal active bowel sounds Extremity: Warm, no edema Skin: No jaundice, no rash or lesion Neuro: Alert, oriented x 3, no focal motor deficits, sensation grossly intact Discharge Data Studies Completed and Pending Completed Studies During Hospitalization Category Date Time Status CT head thrombolytic 09532 Stat Cat Scan 08/15/25 10:55 Completed Pending at discharge Category Date Time Status Basic Metabolic Panel AM LABS Lab 08/17/25 04:00 Ordered Basic Metabolic Panel AM LABS Lab 08/18/25 04:00 Ordered Blood Culture Stat Lab 08/15/25 11:19 Results Comprehensive Metabolic Panel AM LABS Lab 08/17/25 04:00 Ordered Comprehensive Metabolic Panel AM LABS Lab 08/18/25 04:00 Ordered Radiology Impressions Head CT 08/15/25 10:55 IMPRESSION: 1. No evidence of intracranial hemorrhage or mass effect. 2. No acute intracranial findings. Notified Chelle Santillan MD at 08/15/2025 11:16 AM. Laboratory Results WBC 4.92 10^3/uL (3.29-11.43) 08/15/25 11:00 RBC 3.82 10^6/uL (3.85-5.65) L 08/15/25 11:00 Hgb 9.20 g/dL (11.27-16.99) L 08/15/25 11:00 Hct 30.7 % (37-53) L 08/15/25 11:00 MCV 80.4 fl (82-101) L 08/15/25 11:00 MCH 24.1 pg (27-33) L 08/15/25 11:00 MCHC 30.0 g/dL (30-55) 08/15/25 11:00 RDW 21.3 % (12.1-15.1) H 08/15/25 11:00 Plt Count 181 10^3/cmm (157-399) 08/15/25 11:00 MPV 9.4 fL (7.4-10.4) 08/15/25 11:00 Neut % (Auto) 52.7 % 08/15/25 11:00 Lymph % (Auto) 33.5 % 08/15/25 11:00 [place] % (Auto) 7.5 % 08/15/25 11:00 Eos % (Auto) 4.3 % 08/15/25 11:00 Baso % (Auto) 1.8 % 08/15/25 11:00 Neut # (Auto) 2.59 10^3/uL (1.8-7.7) 08/15/25 11:00 Lymph # (Auto) 1.7 10^3/uL (0.8-4.8) 08/15/25 11:00 [place] # (Auto) 0.4 10^3/uL (0.2-0.9) 08/15/25 11:00 Eos # (Auto) 0.2 10^3/uL (0.0-0.8) 08/15/25 11:00 Baso # (Auto) 0.1 10^3/uL (0.0-0.1) 08/15/25 11:00 Nucleated RBC % (auto) 0 % 08/15/25 11:00 Nucleated RBCs # 0.0 /100WBC 08/15/25 11:00 PT 18.60 SECONDS (12.1-14.9) H 08/15/25 11:00 INR 1.45 (0.8-1.2) H 08/15/25 11:00 APTT 37.5 SECONDS (23.9-36.7) H 08/15/25 11:00 Sodium 141 mmol/L (136-145) 08/16/25 04:31 Potassium 3.4 mmol/L (3.5-5.1) L 08/16/25 04:31 Chloride 111 mmol/L (98-107) H 08/16/25 04:31 Carbon Dioxide 20 mmol/L (22-29) L 08/16/25 04:31 Anion Gap 13.4 (5-19) 08/16/25 04:31 BUN 7 mg/dL (8-23) L 08/16/25 04:31 Creatinine 0.5 mg/dL (0.7-1.2) L 08/16/25 04:31 GFR Calculation 165.9 mL/min (90-130) H 08/16/25 04:31 Glucose 87 mg/dL (65-115) 08/16/25 04:31 POC Glucose 105 mg/dL (70-110) 08/16/25 06:10 Calculated Osmolality 289 mOsm/kg (285-295) 08/16/25 04:31 Lactic Acid 3.9 mmol/L (0.5-2.2) H 08/15/25 11:00 Lactic Acid (Sepsis) 3.2 mmol/L (0.5-2.2) H 08/15/25 14:10 Calcium 7.9 mg/dL (8.5-10.5) L 08/16/25 04:31 Total Bilirubin 0.8 mg/dL (0.15-1.2) 08/16/25 04:31 AST 13 U/L (0-40) 08/16/25 04:31 ALT 6 U/L (0-41) 08/16/25 04:31 Alkaline Phosphatase 74 U/L (40-130) 08/16/25 04:31 Ammonia 101 umol/L (16-60) H 08/15/25 12:07 Total Protein 6.6 g/dL (6.6-8.7) 08/16/25 04:31 Albumin 2.6 g/dL (3.5-5.2) L 08/16/25 04:31 Globulin 4.0 g/dL (1.3-4.6) 08/16/25 04:31 Procalcitonin 0.06 ng/mL (0-0.5) 08/15/25 12:07 Urine Color Yellow (Yellow) 08/15/25 11:59 Urine Appearance Clear (CLEAR) 08/15/25 11:59 Urine pH 7.5 (5-7) 08/15/25 11:59 Ur Specific Glennie 1.014 (1.005-1.030) 08/15/25 11:59 Urine Protein 1+ (Negative) A 08/15/25 11:59 Urine Glucose (UA) Negative (Normal) 08/15/25 11:59 Urine Ketones Negative (Negative) 08/15/25 11:59 Urine Blood 1+ (Negative) A 08/15/25 11:59 Urine Nitrate Negative (Negative) 08/15/25 11:59 Urine Bilirubin Negative (Negative) 08/15/25 11:59 Urine Urobilinogen 4.0 mg/dL (Negative) H 08/15/25 11:59 Ur Leukocyte Esterase 1+ (Negative) A 08/15/25 11:59 Urine RBC 0-4 /hpf (0-2) H 08/15/25 11:59 Urine WBC 21-50 /hpf (0-5) H 08/15/25 11:59 Ur Squamous Epith Cells 0-4 /hpf (0-5) H 08/15/25 11:59 Amorphous Sediment Not Reportable 08/15/25 11:59 Urine Bacteria Trace /hpf (NONE) 08/15/25 11:59 Urine Mucus Trace /hpf 08/15/25 11:59 Urine Opiates Screen Negative ng/mL (Negative) 08/15/25 11:59 Ur Barbiturates Screen Negative ng/mL (Negative) 08/15/25 11:59 Ur Phencyclidine Scrn Negative ng/mL (Negative) 08/15/25 11:59 Ur Amphetamines Screen Negative ng/mL (Negative) 08/15/25 11:59 U Benzodiazepines Scrn Negative ng/mL (Negative) 08/15/25 11:59 Urine Cocaine Screen Negative ng/mL (Negative) 08/15/25 11:59 U Marijuana (THC) Screen Negative ng/mL (Negative) 08/15/25 11:59 Ethyl Alcohol < 10 mg/dL (0-10) 08/15/25 12:07 Vitals Last Vital Signs Temp 97.8 F 08/16/25 07:48 Pulse 83 08/16/25 07:48 Resp 17 08/16/25 07:48 BP 114/70 08/16/25 07:48 Pulse Ox 95 08/16/25 07:48 O2 Del Method Room Air 08/16/25 07:48 Discharge Plan Discharge Patient Disposition: Xfer SNF Condition: Stable Prescriptions: Continued metformin 1,000 mg Tablet 1,000 mg PO BID hydrocodone-acetaminophen 5-325 mg tablet 1 tab PO Q8H PRN (Reason: Pain) acetaminophen [Tylenol] 325 mg Tablet 650 mg PO Q6H PRN (Reason: Pain/increased temp) bisacodyl [Dulcolax (bisacodyl)] 10 mg Suppository 10 mg AR DAILY PRN (Reason: constipation ) gabapentin 300 mg capsule 300 mg PO TID lactulose 10 gram/15 mL solution 30 ml PO BID eszopiclone [Lunesta] 1 mg Tablet 1 mg PO BEDTIME sucralfate 1 gram Tablet 1 g PO AC&BEDTIME Qty: 60 0RF simvastatin 40 mg Tablet 40 mg PO BEDTIME levothyroxine 25 mcg Tablet 25 mcg PO DAILY potassium chloride 20 mEq Packet 20 meq PO BID magnesium hydroxide [Milk of Magnesia] 400 mg/5 mL Suspension 30 ml PO DAILY PRN (Reason: Constipation) Fleet Enema 19-7 gram/118 mL Enema 118 ml AR DAILY PRN (Reason: Constipation) omeprazole 20 mg Capsule,Delayed Release(Dr/Ec) 20 mg PO BID bisacodyl [Dulcolax (bisacodyl)] 5 mg Tablet,Delayed Release (Dr/Ec) 10 mg PO DAILY PRN (Reason: Constipation) Rx Instructions: if no results from milk of mag ferrous sulfate 324 mg (65 mg iron) tablet,delayed release (DR/EC) 324 mg PO .QOD Discontinued pantoprazole 40 mg tablet,delayed release (DR/EC) 40 mg PO BID Qty: 60 0RF Discharge Order = DC NOW: Discharge Order (Routine); Ordered 08/16/25 Ordered By: Loreta Chan Referrals: Demarcus Poole DO [Primary Care Provider, Internal Medicine] Discharge Diet: Low Salt Discharge Activity: Resume usual activity Activity Restrictions/Additional Instructions: Titrate lactulose for 2-3 bowel movements a day Discharge Attestations Time Spent in Discharge Care*: less than 30 min Quality Metrics Clinical Quality Measures [ No reported AMI, CVA or VTE this stay] Coding Level of Care Code Acute Code for Chg Fwd Diagnoses Hepatic encephalopathy K76.82 Liver cirrhosis K74.60 Chronic anemia D64.9 Iron deficiency E61.1 Type 2 diabetes mellitus E11.9 Hypothyroidism E03.9
[2025-08-16 11:45] VITALS: BP 102/64; PULSE 85; RESP 16; TEMP 36.7; O2SAT 97
[2025-08-16 13:25] VITALS: BP 102/64; PULSE 85; RESP 16; TEMP 36.7; O2SAT 97
--- NOTE | 2025-08-16 13:45 | PC.NURSE ---
Called report to Sara Bruno RN for patient.
== END 2025-08-16 13:50 | disposition skilled nursing facility (03) ==
LOC: ER 12:52 → MEDSURG 13:28
PROVIDERS: Admitting Provider Student in an Organized Health Care Education/Training Program; Emergency Provider Emergency Medicine; PCP Internal Medicine; Visit Provider Student in an Organized Health Care Education/Training Program
DX: K76.82 Hepatic encephalopathy (principal); K74.60 Unspecified cirrhosis of liver; D64.9 Anemia, unspecified; E61.1 Iron deficiency; E11.9 Type 2 diabetes mellitus without complications; E03.9 Hypothyroidism, unspecified; K21.9 Gastro-esophageal reflux disease without esophagitis; Z79.891 Long term (current) use of opiate analgesic; Z86.0100 Personal history of colon polyps, unspecified; Z79.84 Long term (current) use of oral hypoglycemic drugs; Z85.46 Personal history of malignant neoplasm of prostate; Z66 Do not resuscitate
CPT/HCPCS: 36415; 36416; 70450; 80053; 80306; 80307; 81001; 82140; 82962; 83605; 84145; 85025; 85610; 85730; 87040; 93005; 94664; 96372; 96374; 96375; 99285; G0378; J0696; J1650; J1815; J2270; J7040; J9999

== ENCOUNTER 2025-08-20 11:40 | Inpatient (IN) | payer MEDICARE, SELFPAY ==
[2025-08-20] VITALS (7 sets, daily range): BP systolic 96–119; BP diastolic 61–77; PULSE 94–107; RESP 16–18; TEMP 36.5–36.8; O2SAT 95–99; BMI 23.7
--- NOTE | 2025-08-20 11:42 | XR_ITS ---
WS: [id number] XR chest 1V portable [id number] REASON FOR EXAM: ams FINDINGS: The chest is unchanged compared to the previous examination of 07/28/2025. Mild tortuosity and ectasia of the aortic arch and thoracic aorta. Heart size at the upper limits of normal. Mild central pulmonary venous congestion. Calcified granulomatous disease bilaterally. No acute pulmonary parenchymal or pleural abnormality. Moderate thoracic scoliosis and degenerative spondylosis. XR/XR chest 1V portable [id number] IMPRESSION: Stable chest with mild central pulmonary venous congestion. No acute chest abno rmality.
--- NOTE | 2025-08-20 11:44 | CT_ITS ---
WS: [id number] CT HEAD NONCONTRAST HISTORY: ams TECHNIQUE: Contiguous axial imaging performed through the brain. Bone and soft tissue windows. Sagittal and coronal reformats reviewed. All CT scans at [facility] use at least one of these dose optimization techniques: automated exposure control; mA and/or kV adjustment per patient size (includes targeted exams where dose is matched to clinical indication); or iterative reconstruction. DLP: 1202.98 mGy.cm COMPARISON: 08/15/2025 No acute intracranial hemorrhage, midline shift or mass effect. Mild atrophy and small vessel disease. No new area of edema or infarct. Moderate cerebellar atrophy. Ventricles: Normal size with no hydrocephalus. Intracranial vascular calcifications. Paranasal sinuses: As visualized are clear. Mastoid air cells: Well pneumatized. Calvarium and scalp: Skull is intact with no soft tissue edema or swelling. CT/CT head wo con* [id number] IMPRESSION: 1. No acute intracranial hemorrhage or edema. 2. Mild cerebral atrophy with small vessel disease. 3. Moderate cerebellar atrophy.
--- NOTE | 2025-08-20 11:45 | W.ED.GENADLT ---
HPI - General Adult General: Chief complaint: Altered Mental Status Stated complaint: AMS Time Seen by Provider: 08/20/25 11:43 Source: patient and EMS Mode of arrival: EMS Limitations: altered mental status History of Present Illness: 65-year-old male here from senior living with confusion. He states he has been confused since this morning and having some increased weakness. Does have a history of cirrhosis has been here with hepatic encephalopathy recently. No focal symptoms no slurred speech patient is able to tell me his name and answer my questions but is confused to date and place Related Data Home Medications ?Medication ?Instructions ?Recorded ?Confirmed metformin 1,000 mg tablet 1,000 mg PO BID 11/18/19 08/20/25 acetaminophen 325 mg tablet 650 mg PO Q6H PRN Pain/increased 04/26/25 08/20/25 (Tylenol) temp hydrocodone 5 mg-acetaminophen 325 1 tab PO Q8H PRN Pain 05/28/25 08/20/25 mg tablet eszopiclone 1 mg tablet (Lunesta) 1 mg PO BEDTIME 07/15/25 08/20/25 lactulose 10 gram/15 mL oral 30 ml PO BID 07/15/25 08/20/25 solution levothyroxine 25 mcg tablet 25 mcg PO DAILY 08/15/25 08/20/25 omeprazole 20 mg capsule,delayed 20 mg PO BID 08/15/25 08/20/25 release potassium chloride 20 mEq oral 20 meq PO BID 08/15/25 08/20/25 packet simvastatin 40 mg tablet 40 mg PO BEDTIME 08/15/25 08/20/25 aluminum-mag hydroxide-simethicone 10 ml PO QID PRN Indigestion 08/20/25 08/20/25 200 mg-200 mg-20 mg/5 mL oral susp Previous Rx's ?Medication ?Instructions ?Recorded sucralfate 1 gram tablet 1 g PO AC&BEDTIME #60 tabs 07/16/25 Allergies Allergy/AdvReac Type Severity Reaction Status Date / Time No Known Allergies Allergy Verified 07/28/25 20:26 Review of Systems General: Reports: ROS unobtainable due to mental status PFSH ED PFSH: Medical History (Updated 08/20/25 @ 12:28 by Karla Rodriguez MD) History of colon polyps Prostate cancer Liver cirrhosis Insomnia Type 2 diabetes mellitus Hypothyroidism Surgical History H/O prostatectomy History of esophagogastroduodenoscopy Family History Mother Diabetes mellitus, type 2 Social History Smoking and tobacco/nicotine status: never used tobacco/nicotine Alcohol intake: former Substance/Drug Use: unknown Physical Exam Const: COMMON NORMALS: alert EXAM LIMITATIONS: altered mental status ORIENTATION/CONSCIOUSNESS: Yes oriented to person; not oriented to place and not oriented to time HENMT: COMMON NORMALS: normocephalic and atraumatic HEAD & SCALP: normocephalic and atraumatic Eye: COMMON NORMALS: Equal, round and reactive pupils present and EOMs intact bilaterally PUPIL: Yes Equal, round and reactive pupils present Neck/C-Spine: COMMON NORMALS: full ROM and supple Chest: COMMONS NORMALS: normal inspection of the chest and normal palpation of entire chest wall Resp: COMMON NORMALS: normal respiratory effort, No retractions, No use of accessory muscles and clear to auscultation bilaterally AUSCULTATION: clear to auscultation bilaterally Cardio: COMMON NORMALS: regular rate, regular rhythm and No murmurs present (Cardio) RATE: regular rate RHYTHM: regular rhythm GI: COMMON NORMALS: Normal to inspection, nondistended, normoactive bowel sounds present, Soft to palpation, non-tender and no masses PALPATION: Yes Soft to palpation Extremity: COMMON NORMALS: normal to inspection and full ROM Neuro: COMMON NORMALS: moves all extremities and no focal motor deficits SENSORIUM/ORIENTATION: Yes alert, Yes oriented to person, No oriented to place and No oriented to time CRANIAL NERVES: Yes CN normal except as noted SPEECH: speech normal Psych: COMMON NORMALS: mental status grossly normal, Normal thought process present and cooperative THOUGHT PROCESS: Normal thought process present Skin: COMMON NORMALS: no rashes or lesions noted and no wounds GENERAL SKIN EXAM: no rashes or lesions noted Course Vital Signs: Vital signs: Vital Signs Temperature 98.2 F 08/20/25 11:43 Pulse Rate 94 08/20/25 11:43 Respiratory Rate 17 08/20/25 11:43 Blood Pressure 116/73 08/20/25 11:43 Pulse Oximetry 97 08/20/25 11:43 Oxygen Delivery Me thod Room Air 08/20/25 11:43 MDM - General Adult Medical Decision Making Patient presents here from senior living with altered mental status does have a history of cirrhosis along with hepatic encephalopathy. Differential includes meningitis, CVA, intracerebral hemorrhage. Patient has no signs of any of these his white count here is normal no fever head CT showed no hemorrhage he has no focal deficits here he does have an elevated ammonia from his baseline with hepatic encephalopathy likely causing his altered mental status. Vital signs here been stable his EKG showed normal sinus rhythm heart rate [address] elevation QRS 79 QTc 439. Chest x-ray shows no acute abnormality. I spoke to hospitalist Dr. Bejarano and will admit for his hepatic encephalopathy will give him lactulose here. Medical Records I reviewed the patient's medical records. Lab Data I reviewed the patient's lab results. 08/20/25 11:45 08/20/25 11:45 Radiology Impressions Chest X-Ray 08/20/25 11:42 IMPRESSION: Stable chest with mild central pulmonary venous congestion. No acute chest abnormality. Head CT 08/20/25 11:44 IMPRESSION: 1. No acute intracranial hemorrhage or edema. 2. Mild cerebral atrophy with small vessel disease. 3. Moderate cerebellar atrophy. Laboratory Results WBC 4.62 10^3/uL (3.29-11.43) 08/20/25 11:45 RBC 4.12 10^6/uL (3.85-5.65) 08/20/25 11:45 Hgb 9.70 g/dL (11.27-16.99) L 08/20/25 11:45 Hct 32.3 % (37-53) L 08/20/25 11:45 MCV 78.4 fl (82-101) L 08/20/25 11:45 MCH 23.5 pg (27-33) L 08/20/25 11:45 MCHC 30.0 g/dL (30-55) 08/20/25 11:45 RDW 20.9 % (12.1-15.1) H 08/20/25 11:45 Plt Count 158 10^3/cmm (157-399) 08/20/25 11:45 MPV 9.3 fL (7.4-10.4) 08/20/25 11:45 Neut % (Auto) 61.3 % 08/20/25 11:45 Lymph % (Auto) 22.9 % 08/20/25 11:45 [place] % (Auto) 10.4 % 08/20/25 11:45 Eos % (Auto) 3.9 % 08/20/25 11:45 Baso % (Auto) 1.1 % 08/20/25 11:45 Neut # (Auto) 2.83 10^3/uL (1.8-7.7) 08/20/25 11:45 Lymph # (Auto) 1.1 10^3/uL (0.8-4.8) 08/20/25 11:45 [place] # (Auto) 0.5 10^3/uL (0.2-0.9) 08/20/25 11:45 Eos # (Auto) 0.2 10^3/uL (0.0-0.8) 08/20/25 11:45 Baso # (Auto) 0.1 10^3/uL (0.0-0.1) 08/20/25 11:45 Nucleated RBC % (auto) 0 % 08/20/25 11:45 Nucleated RBCs # 0.0 /100WBC 08/20/25 11:45 PT 16.90 SECONDS (12.1-14.9) H 08/20/25 11:45 INR 1.28 (0.8-1.2) H 08/20/25 11:45 Sodium 139 mmol/L (136-145) 08/20/25 11:45 Potassium 4.0 mmol/L (3.5-5.1) 08/20/25 11:45 Chloride 107 mmol/L (98-107) 08/20/25 11:45 Carbon Dioxide 18 mmol/L (22-29) L 08/20/25 11:45 Anion Gap 18.0 (5-19) 08/20/25 11:45 BUN 10 mg/dL (8-23) 08/20/25 11:45 Creatinine 0.6 mg/dL (0.7-1.2) L 08/20/25 11:45 GFR Calculation 134.4 mL/min (90-130) H 08/20/25 11:45 Glucose 104 mg/dL (65-115) 08/20/25 11:45 Calculated Osmolality 287 mOsm/kg (285-295) 08/20/25 11:45 Calcium 8.5 mg/dL (8.5-10.5) 08/20/25 11:45 Total Bilirubin 0.8 mg/dL (0.15-1.2) 08/20/25 11:45 AST 16 U/L (0-40) 08/20/25 11:45 ALT 8 U/L (0-41) 08/20/25 11:45 Alkaline Phosphatase 93 U/L (40-130) 08/20/25 11:45 Ammonia 154 umol/L (16-60) H 08/20/25 11:45 Total Protein 7.4 g/dL (6.6-8.7) 08/20/25 11:45 Albumin 2.9 g/dL (3.5-5.2) L 08/20/25 11:45 Globulin 4.5 g/dL (1.3-4.6) 08/20/25 11:45 TSH 0.78 uIU/mL (0.27-4.20) 08/20/25 11:45 Ethyl Alcohol < 10 mg/dL (0-10) 08/20/25 11:45 All radiology interpretation(s) finalized by discharge EKG Data EKG 1: I personally reviewed and interpreted this EKG as follows: EKG interpretation date: 08/20/25 EKG interpretation time: 11:48 Interpretation: nsr hr [address] elevation qrs 79 qtc 439 Computer generated interpretation: Chest X-Ray 08/20/25 11:42 IMPRESSION: Stable chest with mild central pulmonary venous congestion. No acute chest abnormality. Head CT 08/20/25 11:44 IMPRESSION: 1. No acute intracranial hemorrhage or edema. 2. Mild cerebral atrophy with small vessel disease. 3. Moderate cerebellar atrophy. Discharge Plan Discharge Patient Disposition: Admitted As Inpatient Clinical Impression: Encephalopathy, hepatic, Liver cirrhosis, Altered mental status Condition: Stable Coding Level of Care Code ED Cottrell Operator for Lamin Pink
--- NOTE | 2025-08-20 11:48 | ECG_ITS ---
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 Measurements Intervals [place] Rate: 94 P: 27 UT: 153 QRS: 16 QRSD: 79 T: 52 QT: 387 QTc: 485 Interpretive Statements SINUS RHYTHM Compared to ECG 08/15/2025 11:07:50 No significant changes Electronically Signed On 08-21-2025 16:55:00 CDT by Molina Leslie M.D. [email or web address]
[2025-08-20 11:52] LABS: Hematocrit 32.3 % (37-53); Hemoglobin 9.70 g/dL (11.27-16.99); Mean Corpuscular HGB Conc 30.0 g/dL (30-55); Mean Corpuscular Hemoglobin 23.5 pg (27-33); Mean Corpuscular Volume 78.4 fl (82-101); Nucleated Red Blood Cells % 0 %; Platelet Count 158 10^3/cmm (157-399); Red Blood Count 4.12 10^6/uL (3.85-5.65); White Blood Count 4.62 10^3/uL (3.29-11.43)
[2025-08-20 12:04] LABS: INR 1.28 (0.8-1.2); Prothrombin Time 16.90 SECONDS (12.1-14.9)
[2025-08-20 12:11] LABS: Ammonia 154 umol/L (16-60)
[2025-08-20 12:23] LABS: Alanine Aminotransferase 8 U/L (0-41); Albumin Level 2.9 g/dL (3.5-5.2); Alkaline Phosphatase 93 U/L (40-130); Anion Gap 18.0 (5-19); Aspartate Amino Transferase 16 U/L (0-40); Blood Urea Nitrogen 10 mg/dL (8-23); Calcium 8.5 mg/dL (8.5-10.5); Carbon Dioxide 18 mmol/L (22-29); Chloride 107 mmol/L (98-107); Creatinine Clr Calc Pharmacy 93.2215; Globulin 4.5 g/dL (1.3-4.6); Glucose 104 mg/dL (65-115); Osmolality Calculated 287 mOsm/kg (285-295); Potassium 4.0 mmol/L (3.5-5.1); Sodium 139 mmol/L (136-145); Thyroid Stimulating Hormone 0.78 uIU/mL (0.27-4.20); Total Protein 7.4 g/dL (6.6-8.7)
--- OUTSIDE RECORDS SUMMARY | 2025-08-20 12:23 | XMS_ITS | Encounter Summary ---
Author Organization [facility] Address [address] [place] [address] Care Team Providers Care Construction Estimator Name Role Phone Sanam Sosa DO Primary Care Provider [phone] Encounter Details Date Type Department Care Team (Latest Contact Info) Description 04/09/2002 Outpatient [facility] [address] [place] [id number] Enrrique Hernandez MD NO ADDRESS ON FILE DERMATITIS NOS (Primary Dx) Social History Tobacco Use Types Packs/Day Years Used Date Smoking Tobacco: Never Assessed Sex and Gender Information Value Date Recorded Sex Assigned at Not on file 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 Gender Identity Not on file Sexual Orientation Not on file documented as of this encounter Plan of Treatment Not on file documented as of this encounter Visit Diagnoses Diagnosis Contact dermatitis and other eczema, due to unspecified cause- Primary documented in this encounter Additional Health Concerns Infection Onset Date Last Indicated Resolved Time MRSA Comment:Boogie 10/23/16 RESOLVED 10/25/2016 10/25/2016 10/24/20 17 3:59 PM FILER REPAIRER documented as of this encounter Care Teams Construction Estimator Relationship Specialty Start Date End Date Sanam Sosa DO [address] [place] [address] PCP - General Family Practice 11/23/10 documented as of this encounter
--- OUTSIDE RECORDS SUMMARY | 2025-08-20 12:23 | XMS_ITS | Encounter Summary ---
Author Organization [facility] Address [address] [place] [address] Care Team Providers Care [place] Maori Name Role Phone Sanam Sosa DO Primary Care Provider Encounter Details Date Type Department Care Team (Latest Contact Info) Description 05/26/2006 Outpatient Historical [facility] Family Medicine- [place] [address] [place] [address] Rodrigue Grissom MD NO ADDRESS ON FILE Acute Sinusitis, Unspecified (Primary Dx); Acute Bronchitis Social History Tobacco Use Types Packs/Day Years Used Date Smoking Tobacco: Never Assessed Sex and Gender Information Value Date Recorded Sex Assigned at Not on file Legal 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:58 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 Gender Identity Not on file Sexual Orientation Not on file documented as of this encounter Plan of Treatment Not on file documented as of this encounter Visit Diagnoses Diagnosis Acute sinusitis, unspecified- Primary Acute bronchitis documented in this encounter Additional Health Concerns Infection Onset Date Last Indicated Resolved Time MRSA Comment:Narama 10/23/16 RESOLVED 10/25/2016 10/25/2016 10/24/20 17 3:59 PM MONUMENTAL STONEMASON documented as of this encounter Care Teams [place] Maori Relationship Specialty Start Date End Date Sanam Sosa DO [address] [place] [facility] [place] [phone] PCP - General Family Practice 11/23/10 documented as of this encounter
--- OUTSIDE RECORDS SUMMARY | 2025-08-20 12:23 | XMS_ITS | Encounter Summary ---
Author Organization [facility] Address [address] [place] [address] Care Team Providers Care Product Development Worker Name Role Phone Sanam Sosa DO Primary Care Provider Encounter Details Date Type Department Care Team (Latest Contact Info) Description 03/24/2005 Outpatient Historical [facility] Family Medicine- [place] [address] [place] [address] Johnny Awan MD [address] [place] [address] [address] BURN ARM NOS (Primary Dx) Social History Tobacco Use Types Packs/Day Years Used Date Smoking Tobacco: Never Assessed Sex and Gender Information Value Date Recorded Sex Assigned at Not on file Legal Sex Male 5:58 AM PILOT Gender Identity Not on file Sexual Orientation [...] RESOLVED 10/25/2016 10/25/2016 10/24/20 17 3:59 PM PILOT documented as of this encounter Care Teams Product Development Worker Relationship Specialty Start Date End Date Sanam Sosa DO [address] [place] [phone] PCP - General Family Practice 11/23/10 documented as of this encounter
--- OUTSIDE RECORDS SUMMARY | 2025-08-20 12:23 | XMS_ITS | Clinical Summary ---
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 Gender Identity Not on file Sexual Orientation Not on file Occupation Industry Job Start Date Job End Date Not on file Not on file Not on file Not on file Last Filed Vital Signs Vital Sign Reading Time Taken Comments Blood Pressure 136/82 11/13/2020 4:43 PM CUSTOMER CARE SPECIALIST Pulse 101 11/13/2020 4:43 PM CUSTOMER CARE SPECIALIST Temperature 36.6 C (97.8 F) 11/13/2020 4:43 PM CUSTOMER CARE SPECIALIST Respiratory Rate 18 11/13/2020 4:43 PM CUSTOMER CARE SPECIALIST Oxygen Saturation 94% 11/13/2020 4:43 PM CUSTOMER CARE SPECIALIST Inhaled Oxygen Concentration - - Weight 106.1 kg (234 lb) 11/13/2020 4:43 PM CUSTOMER CARE SPECIALIST Height 177.8 cm (5' 10 ) 11/13/2020 4:43 PM CUSTOMER CARE SPECIALIST Body Mass Index 33.58 11/13/2020 4:43 PM CUSTOMER CARE SPECIALIST Plan of Treatment Health Maintenance Due [...] VACCINE (#1) 2025 08/02/2019, 2017 COLORECTAL SCREENING 08/06/2035 08/06/2025, 10/26/20 22 Colorectal Cancer Screening 08/06/2035 Procedures Procedure Name Priority Date/Time Associated Diagnosis Comments LIPID PANEL Routine 03/02/2021 8:22 AM CDT Type 2 diabetes mellitus without complication, without long-term current use of insulin ([facility]) HEMOGLOBIN A1C Routine 03/02/2021 8:22 AM CDT Type 2 diabetes mellitus without complication, without long-term current use of insulin ([facility]) MICROALBUMIN/CREATIN INE RATIO, RANDOM UR Routine 08/02/2019 11:27 AM CDT from Last 3 Months or Most Recently Relevant to Health Maintenance Results * (ABNORMAL) HEMOGLOBIN A1C (03/02/2021 8:22 AM CDT) HEMOGLOBIN A1C 6.5(H) See Comment % 03/02/2021 9:11 PM CDT [facility] EST. AVG GLUCOSE, A1C 140 mg/dL 03/02/2021 9:11 PM CDT [facility] Blood Venipuncture / Unknown 03/02/2021 8:22 AM CDT 03/02/2021 8:46 PM CDT Narrative [facility] - 03/02/2021 9:11 PM CDT HGB A1C INTERPRETATION NORMAL: <5.7% PRE-DIABETES: 5.7 - 6.4% DIABETES: 6.5% OR GREATER Falsely low A1C measurements can occur when: 1. Anemia and/or hemolytic anemia is present. 2. Hemoglobin variants present. 3. Renal failure. 4. Transfusion of blood product in the last 120 days. We recommend ordering a fructosamine test([id number]) to more accurately assess glycemic status if any of the above conditions are present. us Sanam Sosa DO CHEMISTRY ORDERABLES Final Result [facility] CLIA# [id number] [facility] [place] [address] * (ABNORMAL) LIPID PANEL (03/02/2021 8:22 AM CDT) CHOLESTEROL 176 <200 mg/dL 03/02/2021 9:33 PM CDT [facility] TRIGLYCERIDE 177(H) <150 mg/dL 03/02/2021 9:33 PM CDT [facility] HDL 48 40 - 59 mg/dL 03/02/2021 9:33 PM CDT [facility] LDL CALCULATED 93 <100 mg/dL 03/02/2021 9:33 PM CDT [facility] NON-HDL CHOLESTEROL 128 <130 mg/dL 03/02/2021 9:33 PM CDT [facility] Blood Venipuncture / Unknown 03/02/2021 8:22 AM CDT 03/02/2021 8:47 PM CDT Narrative [facility] - 03/02/2021 9:33 PM [...] Sanam Sosa DO CHEMISTRY ORDERABLES Final Result [facility] CLIA# [id number] [address] [place] [address] * MICROALBUMIN/CREATININE RATIO, RANDOM UR (08/02/2019 11:27 AM CDT) MICROALBUMIN, URINE <1.2 No Reference Range mg/dL 08/02/2019 8:03 PM CDT [facility] CREATININE, URINE 56.4 40.0 - 278.0 mg/dL 08/02/2019 8:03 PM CDT [facility] Comment:Reference Range vari es with fluid intake and diet. Urine URINE SPECIMEN OBTAINED BY CLEAN CATCH PROCEDURE / Unknown Collection / Unknown 08/02/2019 11:27 AM CDT 08/02/2019 7:25 PM CDT Narrative [facility] - 08/02/2019 8:03 PM CDT Condition Microalbumin/Creat ratio Normal Males <17 Normal Females <25 Microalbuminuria Males 17-299 Microalbuminuria Females 25-299 Overt proteinuria >=300 Unable to calculate urine microalbumin/creatinine ratio because urine microalbumin result is outside of reportable range. Sanam Sosa DO URINE ORDERABLES Final Resu lt [facility] CLIA# [id number] [address] [place] [id number] from Last 3 Months or Most Recently Relevant to Health Maintenance Insurance [facility] BCBS Advance Directives For more information, please contact: [phone] * Full Code (Latest Code Status on [...] 7:02 AM 08/27/2010 2:50 PM Care Teams News Operations Manager Relationship Specialty Start Date End Date Sanam Sosa DO [address] [place] [id number] PCP - General Family Practice 11/23/10
--- OUTSIDE RECORDS SUMMARY | 2025-08-20 12:23 | XMS_ITS | Encounter Summary ---
Author Organization [facility] Address [address] [place] [address] Care Team Providers Care Surgical Instrument Repair Specialist Name Role Phone Sanam Sosa DO Primary Care Provider Reason for Referral * Outpatient Services (Routine) - Closed Specialty Diagnoses / Procedures Referred By Wes david Referred To Contact Diagnoses Thoracic or lumbosacral neuritis or radiculitis, unspecified Procedures XR FLUORO NEEDLE GUIDANCE Poncho Ferrer MD NO ADDRESS ON FILE Referral ID Status Reason Start Date Expiration Date Visits Re quested Visits Authorized [id number] Closed 05/15/2013 06/15/2014 1 1 Encounter Details Date Type Department Care Team (Late st Contact Info) Description 05/15/2013 Ancillary Orders [facility] Pain Management Procedures [facility] [address] [place] [id number] Poncho Ferrer MD NO ADDRESS ON FILE [...] on file 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
--- OUTSIDE RECORDS SUMMARY | 2025-08-20 12:23 | XMS_ITS | Encounter Summary ---
Author Organization [facility] Address [address] [place] [address] Care Team Providers Care System Admin Name Role Phone Sanam Sosa DO Primary Care Provider [phone] Encounter Details Date Type Department Care Team (Latest Contact Info) Description 11/05/2005 Outpatient Historical [facility] Family Medicine- [place] [address] [place] [address] Maximo Fox, INFANTRYMAN [address], [place] [id number] BRONCHITIS NOS (Primary Dx) Social History Tobacco Use Types Packs/Day Years Used Date Smoking Tobacco: Never Assessed Sex and Gender Information Value Date Recorded Sex Assigned at Not on file 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 Gender Identity Not on file Sexual Orientation Not on file documented as of this encounter Plan of Treatment Not on file documented as of this encounter Visit Diagnoses Diagnosis Bronchitis, not specified as acute or chronic- Primary documented in this encounter Additional Health Concerns Infection Onset Date Last Indicated Resolved Time MRSA Comment:Nares 10/23/16 RESOLVED 10/25/2016 10/25/2016 10/24/20 17 3:59 PM ENGINEERING GROUP MANAGER documented as of this encounter Care Teams System Admin Relationship Specialty Start Date End Date Sanam Sosa DO [address] [place] [phone] PCP - General Family Practice 11/23/10 documented as of this encounter
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
--- OUTSIDE RECORDS SUMMARY | 2025-08-20 12:24 | XMS_ITS | Continuity of Care Document ---
Author Organization [facility] ([facility]) Address [address] [place] [address] Insurance Providers Payer Plan Claims Address Claims Phone Policy Number Group Number Relation Employer Guarantor Name Guarantor Guarantor Address Guarantor Phone [employer] [address], [place] [address] tel:[id number] Gonzalo Jackson [address] [place] [id number] Problems Condition ICD9 code ICD10 code SNOMED [...] mellitus without complications E11.9 03/14/2025 Act [facility] (current) use of oral hypoglycemic drugs Z79.84 [...] can't take p/o, if no results from [facility] rectal 1.0 1.0 d 08/06 Active famotidine [...] hand. topical 1.0 8.0 h 08/06 Active eszopiclone 1 mg tablet (eszopiclone) 1 TAB, oral, At Bedtime, Exempt G47.00 oral 1.0 07/22 Active ferrous sulfate 325 mg (65 mg iron) tablet (ferrous sulfate) 1 tab, oral, Twice A Day, dosing per ti oral 1.0 12.0 h 07/22 Active gabapentin 300 mg capsule (gabapentin) [...] results from [facility] rectal 1.0 1.0 d 08/16 Active Dulcolax (bisacodyl) (bisacodyl) 5 mg tablet,delayed release (DR/EC) (Dulcolax (bisacodyl) (bisacodyl)) 2 tabs/10mg, oral, Once A Day - PRN, Give if no results from [facility] oral 1.0 1.0 d 08/16 Active eszopiclone 2 mg tablet (eszopiclone) 1 tab, oral, At Bedtime - PRN, give for insomnia for 14 days; exempt G47.00 oral 1.0 08/20 Active famotidine 20 mg tablet (famotidine) 1 tab, oral, Once A Day - PRN, for indigestion oral 1.0 1.0 d 08/16 Active ferrous sulfate 325 mg (65 mg iron) tablet (ferrous sulfate) 1 tab, oral, Once A Day Every Other Day, dosing per TI oral 1.0 1.0 d 08/16 Active Fleet Enema (sodium phosphates) 19-7 gram/118 mL enema (Fleet Enema (sodium phosphates)) 1 application, rectal, Once A Day - PRN, Give fleets if no results from [facility] and Dulcolax rectal 1.0 1.0 d 08/16 Active gabapentin 300 mg capsule (gabapentin) 1 cap, oral, Four Times A Day, give at 7am, 11am, 3pm, and 7pm oral 1.0 6.0 h 08/16 Active hydrocodone-praveen taminophen 5-325 mg tablet (hydrocodone-ac etaminophen) 1 tab, oral, Every 8 Hours - PRN, for moderate-shashank re pain; exempt R52 oral 1.0 8.0 h 08/16 Active ketoconazole 2 % cream (ketoconazole) 1 alba, topical, Once A Day topical 1.0 1.0 d 08/16 Active lactulose 10 gram/15 mL solution (lactulose) 30 mL (20 gram), oral, Twice A Day oral 1.0 12.0 h 08/16 Active levothyroxine 25 mcg tablet (levothyroxine) 1 tab, oral, Once A Day oral 1.0 1.0 d 08/16 Active metformin 1,000 mg tablet (metformin) 1 tab, oral, Twice A Day oral 1.0 12.0 h 08/16 Active Milk of Magnesia (magnesium hydroxide) 400 mg/5 mL suspension (Milk of Magnesia (magnesium hydroxide)) 30 ml, oral, Every 72 Hours - PRN, if no BM in 3 daysDO NOT GIVE TO RENAL PATIENTS--GO TO DULCOLAX ORDERS oral 1.0 72.0 h 08/16 Active omeprazole 20 mg capsule,delayed release(DR/EC) (omeprazole) 1 cap, oral, Twice A Day, TI for pantoprazole oral 1.0 12.0 h 08/16 Active potassium chloride 20 mEq packet (potassium chloride) 1 packet, oral, Twice A Day, mix as directed oral 1.0 12.0 h 08/16 Active simvastatin 40 mg tablet (simvastatin) 1 tab, oral, At Bedtime oral 1.0 08/16 Active sucralfate 1 gram tablet (sucralfate) 1 tab, oral, Before Meals and At Bedtime oral 1.0 08/16 Active Tylenol (acetaminophen) 325 mg tablet (Tylenol (acetaminophen) ) 2 tabs/650mg, oral, Every 6 Hours - PRN, as needed for PRN pain/increase d tempMay give rectally if necessary oral 1.0 6.0 h 08/16 Active acetaminophen 325 mg tablet (acetaminophen) 2 tabs (650mg), oral, Every 6 Hours - PRN, for pain or fever. oral 1.0 6.0 h 2024 Active eszopiclone 1 mg tablet (eszopiclone) 1 tab, oral, At Bedtime, Exempt G47.00 oral 1.0 2024 Active ferrous sulfate 325 mg (65 mg iron) tablet (ferrous sulfate) 1 tab, oral, Once A Day Every Other Day, TI for ferrous sulfate 324mg EC. Dosing per TI. oral 1.0 1.0 d 08/19 Active gabapentin 300 mg capsule (gabapentin) 1 cap, oral, Three Times A Day oral 1.0 8.0 h 08/19 Active hydrocodone-praveen taminophen 5-325 mg tablet (hydrocodone-ac etaminophen) 1 tab, oral, Every 8 Hours - PRN, for pain. Exempt R52 oral 1.0 8.0 h 2024 Active lactulose 10 gram/15 mL solution (lactulose) 30mL, oral, Twice A Day oral 1.0 12.0 h 2024 Active levothyroxine 25 mcg tablet (levothyroxine) 1 tab, oral, Once A Day oral 1.0 1.0 d 2024 Active metformin 1,000 mg tablet (metformin) 1 tab, oral, Twice A Day oral 1.0 12.0 h 2024 Active omeprazole 20 mg capsule,delayed release(DR/EC) (omeprazole) 1 cap, oral, Twice A Day oral 1.0 12.0 h 2024 Active potassium chloride 20 mEq tablet extended release (potassium chloride) 1 tab, oral, Twice A Day oral 1.0 12.0 h 2024 Active simvastatin 40 mg tablet (simvastatin) 1 tab, oral, At Bedtime oral 1.0 2024 Active sucralfate 1 gram tablet (sucralfate) 1 gram, oral, Before Meals and At Bedtime oral 1.0 2024 Active eszopiclone 2 mg tablet (eszopiclone) 1 tab, oral, At Bedtime - PRN, give for insomnia for 14 days; exempt G47.00 oral 1.0 08/16 Active Vital Signs Date Vital Result Comment 07/10/2025 08:31 AM Temperature (8310-5) 98.5 [degF] Oxygen Saturation (25356-3) 95 % Respiratory Rate (9279-1) 16 /min Heart Rate (8867-4) 90 /min Blood Pressure Systolic (8480-6) 115 mm[Hg] Blood Pressure Diastolic (8462-4) 61 mm[Hg] 07/08/2025 08:25 AM Body Weight (87371-8) 174.8 [lb_av ] Body Mass Index (88155-3) 26.58 kg/m2 07/03/2025 10:44 AM Temperature (8310-5) 98 [degF] Oxygen Saturation (60423-9) 97 % Respiratory Rate (9279-1) 16 /min Heart Rate (8867-4) 80 /min Blood Pressure Systolic (8480-6) 120 mm[Hg] Blood Pressure Diastolic (8462-4) 66 mm[Hg] 06/26/2025 12:50 PM Temperature (8310-5) 98.4 [degF] Oxygen Saturation (31179-7) 98 % Respiratory Rate (9279-1) 16 /min Heart Rate (8867-4) 86 /min Blood Pressure Systolic (8480-6) 118 mm[Hg] Blood Pressure Diastolic (8462-4) 60 mm[Hg] 06/19/2025 07:04 AM Temperature (8310-5) 98.4 [degF] Oxygen Saturation (48555-1) 94 % Respiratory Rate (9279-1) 17 /min Heart Rate (8867-4) 92 /min Blood Pressure Systolic (8480-6) 110 mm[Hg] Blood Pressure Diastolic (8462-4) 52 mm[Hg] 06/13/2025 08:46 AM Body Weight (44333-3) 175.4 [lb_av ] Body Mass Index (60488-1) 26.67 kg/m2 06/12/2025 04:42 PM Body Weight (55916-2) 174 [lb_av] Body Mass Index (69863-7) 26.45 kg/m2 06/12/2025 02:11 PM Temperature (8310-5) 98.9 [degF] Oxygen Saturation (41292-2) 96 % Respiratory Rate (9279-1) 16 /min Heart Rate (8867-4) 68 /min Blood Pressure Systolic (8480-6) 136 mm[Hg] Blood Pressure Diastolic (8462-4) 72 mm[Hg] 06/11/2025 08:35 AM Body Weight (98277-5) 174 [lb_av] Body Mass Index (84349-2) 26.45 kg/m2 06/10/2025 12:56 PM Body Weight (61610-2) 176 [lb_av] Body Mass Index (56170-0) 26.76 kg/m2 06/07/2025 11:46 AM Body Weight (15892-5) 176.2 [lb_av ] Body Mass Index (17784-8) 26.79 kg/m2 06/05/2025 07:53 AM Temperature (8310-5) 97.3 [degF] Oxygen Saturation (20351-8) 97 % Respiratory Rate (9279-1) 16 /min Heart Rate (8867-4) 100 /min Blood Pressure Systolic (8480-6) 118 mm[Hg] Blood Pressure Diastolic (8462-4) 62 mm[Hg] 05/29/2025 03:31 PM Body Weight (46970-6) 165.3 [lb_av ] Body Mass Index (73674-8) 25.13 kg/m2 05/29/2025 12:57 PM Temperature (8310-5) 97 [degF] Oxygen Saturation (04339-8) 98 % Respiratory Rate (9279-1) 18 /min Heart Rate (8867-4) 70 /min Blood Pressure Systolic (8480-6) 128 mm[Hg] Blood Pressure Diastolic (8462-4) 72 mm[Hg] 05/22/2025 01:18 PM Body Weight (57220-1) 166.8 [lb_av ] Body Mass Index (10356-7) 25.36 kg/m2 05/22/2025 11:29 AM Temperature (8310-5) 97.5 [degF] Oxygen Saturation (46729-7) 97 % Respiratory Rate (9279-1) 20 /min Heart Rate (8867-4) 72 /min Blood Pressure Systolic (8480-6) 126 mm[Hg] Blood Pressure Diastolic (8462-4) 80 mm[Hg] 05/15/2025 05:22 PM Body Weight (94355-8) 167.1 [lb_av ] Body Mass Index (23499-1) 25.4 kg/m2 05/11/2025 10:54 AM Temperature (8310-5) 98.3 [degF] Oxygen Saturation (05116-8) 93 % Respiratory Rate (9279-1) 20 /min Heart Rate (8867-4) 98 /min Blood Pressure Systolic (8480-6) 131 mm[Hg] Blood Pressure Diastolic (8462-4) 64 mm[Hg] 05/11/2025 02:51 AM Temperature (8310-5) 97.4 [degF] Oxygen Saturation (86676-8) 95 % Respiratory Rate (9279-1) 15 /min Heart Rate (8867-4) 105 /min Blood Pressure Systolic (8480-6) 120 mm[Hg] Blood Pressure Diastolic (8462-4) 63 mm[Hg] 05/09/2025 11:16 AM Body Weight (88758-0) 167.6 [lb_av ] Body Mass Index (20171-0) 25.48 kg/m2 05/08/2025 01:36 PM Body Weight (82415-5) 166.8 [lb_av ] Body Mass Index (59272-4) 25.36 kg/m2 05/07/2025 01:02 PM Body Weight (91078-5) 166.2 [lb_av ] Body Mass Index (38722-1) 25.27 kg/m2 05/06/2025 05:52 PM Body Height (8302-2) 68 [in_us] 05/06/2025 05:51 PM Body Weight (87716-6) 167.7 [lb_av ] Body Mass Index (03170-6) 25.5 kg/m2 07/17/2025 02:35 PM Body Weight (90532-4) 175 [lb_av] Body Mass Index (46881-2) 26.61 kg/m2 07/17/2025 01:16 PM Temperature (8310-5) 98.2 [degF] Oxygen Saturation (14620-3) 96 % Respiratory Rate (9279-1) 20 /min Heart Rate (8867-4) 79 /min Blood Pressure Systolic (8480-6) 111 mm[Hg] Blood Pressure Diastolic (8462-4) 56 mm[Hg] 07/17/2025 08:46 PM Temperature (8310-5) 98 [degF] Oxygen Saturation (28005-1) 96 % Respiratory Rate (9279-1) 18 /min Heart Rate (8867-4) 77 /min Blood Pressure Systolic (8480-6) 110 mm[Hg] Blood Pressure Diastolic (8462-4) 58 mm[Hg] 07/18/2025 07:02 AM Temperature (8310-5) 98.5 [degF] Oxygen Saturation (20022-8) 98 % Respiratory Rate (9279-1) 16 /min Heart Rate (8867-4) 78 /min Blood Pressure Systolic (8480-6) 118 mm[Hg] Blood Pressure Diastolic (8462-4) 62 mm[Hg] 07/18/2025 04:13 PM Body Weight (53254-4) 174.8 [lb_av ] Body Mass Index (19461-0) 26.58 kg/m2 07/18/2025 06:24 PM Temperature (8310-5) 98 [degF] Oxygen Saturation (31412-0) 96 % Respiratory Rate (9279-1) 18 /min Heart Rate (8867-4) 65 /min Blood Pressure Systolic (8480-6) 110 mm[Hg] Blood Pressure Diastolic (8462-4) 56 mm[Hg] 07/19/2025 07:26 AM Temperature (8310-5) 98.2 [degF] Oxygen Saturation (01950-8) 99 % Respiratory Rate (9279-1) 16 /min Heart Rate (8867-4) 66 /min Blood Pressure Systolic (8480-6) 118 mm[Hg] Blood Pressure Diastolic (8462-4) 69 mm[Hg] 07/19/2025 01:45 PM Body Weight (84791-2) 179.6 [lb_av ] Body Mass Index (00192-7) 27.31 kg/m2 07/19/2025 08:58 PM Temperature (8310-5) 98.6 [degF] Oxygen Saturation (93809-4) 99 % Respiratory Rate (9279-1) 15 /min Heart Rate (8867-4) 74 /min Blood Pressure Systolic (8480-6) 110 mm[Hg] Blood Pressure Diastolic (8462-4) 70 mm[Hg] 07/20/2025 10:08 AM Body Weight (66004-6) 176.6 [lb_av ] Body Mass Index (11799-4) 26.85 kg/m2 07/20/2025 10:09 AM Temperature (8310-5) 98.7 [degF] Oxygen Saturation (89551-4) 93 % Respiratory Rate (9279-1) 22 /min Heart Rate (8867-4) 60 /min Blood Pressure Systolic (8480-6) 139 mm[Hg] Blood Pressure Diastolic (8462-4) 66 mm[Hg] 07/20/2025 09:14 PM Temperature (8310-5) 97.6 [degF] Oxygen Saturation (64797-8) 95 % Respiratory Rate (9279-1) 20 /min Heart Rate (8867-4) 64 /min Blood Pressure Systolic (8480-6) 127 mm[Hg] Blood Pressure Diastolic (8462-4) 61 mm[Hg] 07/21/2025 03:03 PM Temperature (8310-5) 97.8 [degF] Oxygen Saturation (60615-4) 95 % Respiratory Rate (9279-1) 16 /min Heart Rate (8867-4) 68 /min Blood Pressure Systolic (8480-6) 116 mm[Hg] Blood Pressure Diastolic (8462-4) 68 mm[Hg] 07/21/2025 09:25 PM Temperature (8310-5) 98.1 [degF] Oxygen Saturation (65835-4) 95 % Respiratory Rate (9279-1) 16 /min Heart Rate (8867-4) 70 /min Blood Pressure Systolic (8480-6) 112 mm[Hg] Blood Pressure Diastolic (8462-4) 70 mm[Hg] 07/22/2025 12:20 PM Temperature (8310-5) 98.9 [degF] Oxygen Saturation (15731-7) 97 % Respiratory Rate (9279-1) 20 /min Heart Rate (8867-4) 85 /min Blood Pressure Systolic (8480-6) 107 mm[Hg] Blood Pressure Diastolic (8462-4) 61 mm[Hg] 07/22/2025 08:22 PM Temperature (8310-5) 98.6 [degF] Oxygen Saturation (64709-4) 97 % Respiratory Rate (9279-1) 18 /min Heart Rate (8867-4) 88 /min Blood Pressure Systolic (8480-6) 110 mm[Hg] Blood Pressure Diastolic (8462-4) 64 mm[Hg] 07/23/2025 04:27 PM Temperature (8310-5) 98.5 [degF] Oxygen Saturation (27064-8) 96 % Respiratory Rate (9279-1) 20 /min Heart Rate (8867-4) 93 /min Blood Pressure Systolic (8480-6) 138 mm[Hg] Blood Pressure Diastolic (8462-4) 83 mm[Hg] 07/24/2025 12:24 PM Temperature (8310-5) 97.8 [degF] Oxygen Saturation (71809-2) 97 % Respiratory Rate (9279-1) 18 /min Heart Rate (8867-4) 84 /min Blood Pressure Systolic (8480-6) 142 mm[Hg] Blood Pressure Diastolic (8462-4) 80 mm[Hg] 07/24/2025 10:28 PM Temperature (8310-5) 97.8 [degF] Oxygen Saturation (67409-7) 98 % Respiratory Rate (9279-1) 18 /min Heart Rate (8867-4) 88 /min Blood Pressure Systolic (8480-6) 140 mm[Hg] Blood Pressure Diastolic (8462-4) 78 mm[Hg] 07/25/2025 06:42 AM Temperature (8310-5) 98 [degF] Oxygen Saturation (20634-2) 97 % Respiratory Rate (9279-1) 16 /min Heart Rate (8867-4) 80 /min Blood Pressure Systolic (8480-6) 132 mm[Hg] Blood Pressure Diastolic (8462-4) 74 mm[Hg] 07/25/2025 07:24 PM Temperature (8310-5) 97 [degF] Oxygen Saturation (50285-0) 98 % Respiratory Rate (9279-1) 16 /min Heart Rate (8867-4) 100 /min Blood Pressure Systolic (8480-6) 101 mm[Hg] Blood Pressure Diastolic (8462-4) 66 mm[Hg] 07/26/2025 06:35 AM Temperature (8310-5) 98.2 [degF] Oxygen Saturation (48888-4) 97 % Respiratory Rate (9279-1) 15 /min Heart Rate (8867-4) 85 /min Blood Pressure Systolic (8480-6) 110 mm[Hg] Blood Pressure Diastolic (8462-4) 72 mm[Hg] 07/27/2025 06:33 AM Temperature (8310-5) 98.6 [degF] Oxygen Saturation (64453-8) 98 % Respiratory Rate (9279-1) 16 /min Heart Rate (8867-4) 88 /min Blood Pressure Systolic (8480-6) 118 mm[Hg] Blood Pressure Diastolic (8462-4) 62 mm[Hg] 07/27/2025 08:38 PM Temperature (8310-5) 98.4 [degF] Oxygen Saturation (41921-7) 97 % Respiratory Rate (9279-1) 17 /min Heart Rate (8867-4) 79 /min Blood Pressure Systolic (8480-6) 119 mm[Hg] Blood Pressure Diastolic (8462-4) 76 mm[Hg] 07/28/2025 06:39 AM Temperature (8310-5) 98.1 [degF] Oxygen Saturation (78560-1) 98 % Respiratory Rate (9279-1) 16 /min Heart Rate (8867-4) 66 /min Blood Pressure Systolic (8480-6) 122 mm[Hg] Blood Pressure Diastolic (8462-4) 68 mm[Hg] 08/06/2025 05:54 PM Temperature (8310-5) 98.1 [degF] Oxygen Saturation (76207-9) 97 % Respiratory Rate (9279-1) 21 /min Heart Rate (8867-4) 86 /min Blood Pressure Systolic (8480-6) 102 mm[Hg] Blood Pressure Diastolic (8462-4) 65 mm[Hg] Body Weight (40398-1) 170.6 [lb_av] Body Mass Index (07096-3) 25.94 kg/m2 08/07/2025 03:04 PM Body Weight (85809-4) 183.6 [lb_av ] Body Mass Index (50982-9) 27.91 kg/m2 08/07/2025 09:25 AM Temperature (8310-5) 98.2 [degF] Oxygen Saturation (89698-1) 97 % Respiratory Rate (9279-1) 19 /min Heart Rate (8867-4) 87 /min Blood Pressure Systolic (8480-6) 110 mm[Hg] Blood Pressure Diastolic (8462-4) 57 mm[Hg] 08/07/2025 11:37 PM Temperature (8310-5) 97.2 [degF] Respiratory Rate (9279-1) 17 /min Heart Rate (8867-4) 89 /min Blood Pressure Systolic (8480-6) 117 mm[Hg] Blood Pressure Diastolic (8462-4) 71 mm[Hg] 08/08/2025 07:24 AM Body Weight (70624-6) 180.4 [lb_av ] Body Mass Index (79086-4) 27.43 kg/m2 08/08/2025 06:49 AM Temperature (8310-5) 100.2 [degF] Oxygen Saturation (13459-1) 98 % Respiratory Rate (9279-1) 20 /min Heart Rate (8867-4) 67 /min Blood Pressure Systolic (8480-6) 120 mm[Hg] Blood Pressure Diastolic (8462-4) 60 mm[Hg] 08/09/2025 06:41 AM Body Weight (70552-5) 179.8 [lb_av ] Body Mass Index (32504-3) 27.34 kg/m2 08/09/2025 03:19 AM Temperature (8310-5) 97 [degF] Respiratory Rate (9279-1) 16 /min Heart Rate (8867-4) 74 /min 08/09/2025 03:21 AM Oxygen Saturation (46916-1) 99 % Blood Pressure Systolic (8480-6) 135 mm[Hg] Blood Pressure Diastolic (8462-4) 64 mm[Hg] 08/09/2025 06:47 AM Temperature (8310-5) 98.4 [degF] Oxygen Saturation (39504-8) 98 % Respiratory Rate (9279-1) 20 /min Heart Rate (8867-4) 86 /min Blood Pressure Systolic (8480-6) 106 mm[Hg] Blood Pressure Diastolic (8462-4) 59 mm[Hg] 08/09/2025 08:22 PM Temperature (8310-5) 98.7 [degF] Oxygen Saturation (43082-0) 96 % Respiratory Rate (9279-1) 16 /min Heart Rate (8867-4) 73 /min Blood Pressure Systolic (8480-6) 122 mm[Hg] Blood Pressure Diastolic (8462-4) 67 mm[Hg] 08/10/2025 07:25 AM Temperature (8310-5) 98 [degF] Oxygen Saturation (77680-2) 97 % Respiratory Rate (9279-1) 18 /min Heart Rate (8867-4) 62 /min Blood Pressure Systolic (8480-6) 120 mm[Hg] Blood Pressure Diastolic (8462-4) 72 mm[Hg] 08/10/2025 09:41 AM Body Weight (91290-0) 179 [lb_av] Body Mass Index (27921-8) 27.21 kg/m2 08/10/2025 10:37 PM Temperature (8310-5) 98.5 [degF] Oxygen Saturation (18969-1) 96 % Respiratory Rate (9279-1) 16 /min Heart Rate (8867-4) 86 /min Blood Pressure Systolic (8480-6) 102 mm[Hg] Blood Pressure Diastolic (8462-4) 57 mm[Hg] 08/11/2025 06:15 AM Temperature (8310-5) 98.6 [degF] Oxygen Saturation (66808-9) 90 % Respiratory Rate (9279-1) 17 /min Heart Rate (8867-4) 76 /min Blood Pressure Systolic (8480-6) 110 mm[Hg] Blood Pressure Diastolic (8462-4) 50 mm[Hg] 08/11/2025 06:16 AM Body Weight (98141-2) 178.5 [lb_av ] Body Mass Index (97589-5) 27.14 kg/m2 08/11/2025 07:53 PM Temperature (8310-5) 97.6 [degF] Oxygen Saturation (70229-8) 93 % Respiratory Rate (9279-1) 18 /min Heart Rate (8867-4) 70 /min Blood Pressure Systolic (8480-6) 128 mm[Hg] Blood Pressure Diastolic (8462-4) 64 mm[Hg] 08/12/2025 10:09 AM Temperature (8310-5) 99.4 [degF] Oxygen Saturation (76129-9) 94 % Respiratory Rate (9279-1) 20 /min Heart Rate (8867-4) 73 /min Blood Pressure Systolic (8480-6) 101 mm[Hg] Blood Pressure Diastolic (8462-4) 54 mm[Hg] 08/12/2025 08:13 PM Temperature (8310-5) 97 [degF] Heart Rate (8867-4) 84 /min 08/12/2025 08:14 PM Oxygen Saturation (52572-8) 96 % Respiratory Rate (9279-1) 18 /min Blood Pressure Systolic (8480-6) 130 mm[Hg] Blood Pressure Diastolic (8462-4) 74 mm[Hg] 08/13/2025 06:40 AM Temperature (8310-5) 98.7 [degF] Oxygen Saturation (40446-3) 97 % Respiratory Rate (9279-1) 20 /min Heart Rate (8867-4) 84 /min Blood Pressure Systolic (8480-6) 110 mm[Hg] Blood Pressure Diastolic (8462-4) 59 mm[Hg] 08/13/2025 07:33 PM Oxygen Saturation (84139-1) 97 % Respiratory Rate (9279-1) 16 /min Blood Pressure Systolic (8480-6) 105 mm[Hg] Blood Pressure Diastolic (8462-4) 62 mm[Hg] 08/13/2025 07:32 PM Heart Rate (8867-4) 78 /min 08/13/2025 07:31 PM Temperature (8310-5) 97 [degF] 08/14/2025 07:08 AM Temperature (8310-5) 98.5 [degF] Oxygen Saturation (85794-1) 97 % Respiratory Rate (9279-1) 23 /min Heart Rate (8867-4) 95 /min Blood Pressure Systolic (8480-6) 109 mm[Hg] Blood Pressure Diastolic (8462-4) 71 mm[Hg] 08/14/2025 09:40 PM Oxygen Saturation (61388-2) 96 % Blood Pressure Systolic (8480-6) 121 mm[Hg] Blood Pressure Diastolic (8462-4) 72 mm[Hg] 08/14/2025 09:39 PM Respiratory Rate (9279-1) 18 /min Heart Rate (8867-4) 64 /min 08/15/2025 07:02 AM Temperature (8310-5) 98.3 [degF] Oxygen Saturation (19660-7) 96 % Respiratory Rate (9279-1) 20 /min Heart Rate (8867-4) 82 /min Blood Pressure Systolic (8480-6) 110 mm[Hg] Blood Pressure Diastolic (8462-4) 67 mm[Hg] 08/15/2025 06:07 AM Body Weight (67078-8) 171.2 [lb_av ] Body Mass Index (42129-0) 26.03 kg/m2 08/16/2025 11:09 PM Temperature (8310-5) 97 [degF] Oxygen Saturation (01283-5) 97 % Respiratory Rate (9279-1) 17 /min Heart Rate (8867-4) 87 /min Blood Pressure Systolic (8480-6) 108 mm[Hg] Blood Pressure Diastolic (8462-4) 65 mm[Hg] 08/17/2025 09:39 AM Temperature (8310-5) 98 [degF] Oxygen Saturation (45597-2) 96 % Respiratory Rate (9279-1) 20 /min Heart Rate (8867-4) 90 /min Blood Pressure Systolic (8480-6) 117 mm[Hg] Blood Pressure Diastolic (8462-4) 85 mm[Hg] Body Weight (60967-8) 170.6 [lb_av] Body Mass Index (88831-0) 25.94 kg/m2 08/17/2025 11:21 PM Temperature (8310-5) 97.4 [degF] Oxygen Saturation (32068-3) 97 % Respiratory Rate (9279-1) 23 /min Heart Rate (8867-4) 95 /min Blood Pressure Systolic (8480-6) 106 mm[Hg] Blood Pressure Diastolic (8462-4) 71 mm[Hg] 08/18/2025 08:08 AM Temperature (8310-5) 97.3 [degF] Oxygen Saturation (49905-0) 96 % Respiratory Rate (9279-1) 18 /min Heart Rate (8867-4) 90 /min Blood Pressure Systolic (8480-6) 116 mm[Hg] Blood Pressure Diastolic (8462-4) 70 mm[Hg] Body Weight (39719-0) 173.4 [lb_av] Body Mass Index (47511-7) 26.36 kg/m2 08/18/2025 11:31 PM Temperature (8310-5) 96.9 [degF] Oxygen Saturation (81476-4) 96 % Respiratory Rate (9279-1) 18 /min Heart Rate (8867-4) 95 /min Blood Pressure Systolic (8480-6) 127 mm[Hg] Blood Pressure Diastolic (8462-4) 85 mm[Hg] 08/19/2025 07:41 AM Body Weight (40882-8) 174.8 [lb_av ] Body Mass Index (33054-3) 26.58 kg/m2 08/19/2025 09:56 AM Temperature (8310-5) 97.5 [degF] Oxygen Saturation (89972-7) 95 % Respiratory Rate (9279-1) 20 /min Heart Rate (8867-4) 87 /min Blood Pressure Systolic (8480-6) 101 mm[Hg] Blood Pressure Diastolic (8462-4) 61 mm[Hg] 08/20/2025 12:22 AM Temperature (8310-5) 98.3 [degF] Oxygen Saturation (87111-1) 97 % Respiratory Rate (9279-1) 16 /min Heart Rate (8867-4) 84 /min Blood Pressure Systolic (8480-6) 100 mm[Hg] Blood Pressure Diastolic (8462-4) 61 mm[Hg] 08/20/2025 08:02 AM Temperature (8310-5) 98 [degF] Oxygen Saturation (40929-1) 95 % Respiratory Rate (9279-1) 15 /min Heart Rate (8867-4) 80 /min Blood Pressure Systolic (8480-6) 110 mm[Hg] Blood Pressure Diastolic (8462-4) 52 mm[Hg] Social History No smoking Hx information available Encounters Type CPT Code Date Location Provider Indication s encounter report 03/14/2025 12:3 1 PM - 07/15/2025 03:13 AM Demarcus Poole DO 01 encounter report 03/14/2025 12:3 1 PM - 07/28/2025 08:16 PM Demarcus Poole DO 01 encounter report 03/14/2025 12:3 1 PM - 08/15/2025 11:24 AM Demarcus Poole DO 01 Advance Directives Directive Description Verification Date Supporting Document(s) Resuscitation
[2025-08-20 12:31] LABS: Alcohol Level < 10 mg/dL (0-10)
--- NOTE | 2025-08-20 12:37 | PC.PHAR ---
Several medications dc'd on current med list. Bisacodyl, Iron, Gabapentin, milk of mag, Voltaren gel
[2025-08-20 12:50] LABS: Glucose Urine UA Negative (Normal); Nitrate Urine Negative (Negative); Specific Gravity, Urine 1.015 (1.005-1.030)
[2025-08-20] MEDS: lactulose oral liq 20 gm/30 mL UDC 30 GM PO (12:57)
[2025-08-20 12:58] LABS: PCP Screen Urine Negative (Negative)
--- NOTE | 2025-08-20 13:10 | CT_ITS ---
WS: [id number] CT ABDOMEN AND PELVIS NONCONTRAST HISTORY: ams, hx of kidney stone, TECHNIQUE: Imaging performed through the abdomen and pelvis. Coronal and sagittal reformats are submitted. All CT scans at [facility] use at least one of these dose optimization techniques: automated exposure control; mA and/or kV adjustment per patient size (includes targeted exams where dose is matched to clinical indication); or iterative reconstruction. DLP: 839.29 mGy.cm COMPARISON: 07/28/2025 Lower thorax: No pneumonia. Normal size heart. Liver: Cirrhotic liver. Gallbladder: Cholelithiasis. No evidence for acute cholecystitis. Pancreas: Normal size and attenuation. Normal pancreatic duct. No pancreatitis or mass. Spleen: Mild splenomegaly, 15 cm in length. Adrenal glands: Neither adrenal gland is well visualized. No abnormality identified. Right kidney: RIGHT kidney is decreased in size with less perinephric stranding compared to the most recent study. Resolved hydronephrosis. Double pigtail ureteral stent has been placed. Left kidney: Normal size kidney with no mass or hydronephrosis. Aorta: Mild atherosclerosis abdominal aorta with no aneurysm. Extensive venous collaterals are noted within the LEFT upper abdomen. No free fluid, intraperitoneal air or significant lymphadenopathy. GI tract: No obstructive pattern. No colitis. Abdominal wall: Negative. No hernia. Pelvis: Normally distended urinary bladder. RIGHT ureteral pigtail catheter is coiled in the bladder. No free fluid or adenopathy. Osseous structures: Osteopenia, LEFT curvature lumbar spine. L5 anterolisthesis by 13 mm. L5 pars defects. L1 and L4 compression fractures without retropulsion. CT/CT kidney stone [id number] IMPRESSION: 1. Breathing motion artifact throughout the abdomen and pelvis. 2. Double-pigtail RIGHT ureteral stent in good position. Resolved hydronephros is since 07/28/2025. 3. Decrease in size of the RIGHT kidney since the prior study. 4. Cholelithiasis without acute cholecystitis. 5. Cirrhosis with portal venous hypertension and LEFT upper quadrant venous co llaterals. 6. No ascites or free air. Limited evaluation for free air with this amount of motion. 7. Osteopenia. 8. 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
[2025-08-20 13:14] LABS: Add Urine Microscopic? YES
[2025-08-20 13:15] LABS: Procalcitonin 0.05 ng/mL (0-0.5)
[2025-08-20 13:16] LABS: Lactic Sepsis W/Reflex 5.3 mmol/L (0.5-2.2)
--- NOTE | 2025-08-20 14:01 | P.HP_ITS ---
Providers/Chief Complaint 2 Admitting Physician: Andrew Amato MD Primary Care Provider: Demarcus Poole DO Chief Complaint: AMS History of Present Illness Bernardino Jackson is a 65 year old male with a past medical history of hyperammonemia, history of UTI, history of ureteral stent placement at [facility] in July 2025, history of liver cirrhosis, type 2 diabetes mellitus history of chronic anemia who presents [facility] due to altered mental status. Currently patient is alert to person, to place, not to time he follows commands, no facial droop no slurring of his words, he is able to move bilateral upper and lower extremities I cannot discern any focal weakness. He denies any abdominal pain, flank pain, no nausea, vomiting, no chest pain, shortness of breath, he does not know why he is here in the hospital but does report that the nursing staff at [facility] has been concerned about his confusion. He is not exactly sure about the status of his ureteral stent that was placed at [facility] he is not sure if it was removed or not, denies any dysuria, hematuria. I reached out to [facility], patient has not had a fall, no recent UTI, they are not sure if he has her usual stent in place or not, they do report that Bernardino has been refusing his lactulose. Review of Systems 2 Card: Denies: chest pain Resp: Denies: dyspnea GI: Reports: abdominal pain; Denies: nausea or vomiting Medications/Allergies Home Medications ?Medication ?Instructions ?Recorded ?Confirmed ?Last Taken ?Type metformin 1,000 mg tablet 1,000 mg PO BID 11/18/1908/20/25 History acetaminophen 325 mg tablet 650 mg PO Q6H PRN Pain/inc reased 04/26/25 08/20/25 08/08/25 History (Tylenol) temp hydrocodone 5 mg-acetaminophen 325 1 tab PO Q8H PRN Pa in 05/28/25 08/20/25 08/18/25 History mg tablet eszopiclone 1 mg tablet (Lunesta) 1 mg PO BEDTIME 07/0108/20/25 08/19/25 History lactulose 10 gram/15 mL oral 30 ml PO BID 07/15/2508/19/25 History solution sucralfate 1 gram tablet 1 g PO AC&BEDTIME #60 tabs 0 07/16/25 08/20/25 08/20/25 Rx levothyroxine 25 mcg tablet 25 mcg PO DAILY 08/15/25 1 08/20/25 History omeprazole 20 mg capsule,delayed 20 mg PO BID 08/15/25 08/20/25 08/20/25 History release potassium chloride 20 mEq oral 20 meq PO BID 08/15/25 08/20/25 08/20/25 History packet simvastatin 40 mg tablet 40 mg PO BEDTIME 08/15/2508/19/25 History aluminum-mag hydroxide-simethicone 10 ml PO QID PRN In digestion 08/20/25 08/20/25 Unknown History 200 mg-200 mg-20 mg/5 mL oral susp Allergies Allergy/AdvReac Type Severity Reaction Status Date / Time No Known Allergies Allergy Verified 07/28/25 20:26 PFSH Acute 2 PFSH: Medical History History of colon polyps Prostate cancer Liver cirrhosis Insomnia Type 2 diabetes mellitus Hypothyroidism Surgical History H/O prostatectomy History of esophagogastroduodenoscopy Family History Mother Diabetes mellitus, type 2 Social History Smoking and tobacco/nicotine status: never used tobacco/nicotine Alcohol intake: former Substance/Drug Use: unknown Vitals/I&O/Wt Last Vital Signs Temp 98.2 F 08/20/25 11:43 Pulse 95 08/20/25 12:30 Resp 17 08/20/25 11:43 BP 117/72 08/20/25 12:30 Pulse Ox 97 08/20/25 12:30 O2 Del Method Room Air 08/20/25 11:43 Weight last 48 hrs Weight 74.389 kg Physical Exam 2 Const: COMMON NORMALS: no acute distress ORIENTATION/CONSCIOUSNESS: Yes awake, Yes oriented to person and Yes oriented to place; not oriented to time Eye: COMMON NORMALS: Equal, round and reactive pupils present Resp: COMMON NORMALS: normal respiratory effort, No retractions, No use of accessory muscles and clear to auscultation bilaterally AUSCULTATION: clear to auscultation bilaterally Cardio: COMMON NORMALS: regular rate, regular rhythm, S1 normal heart sound present and S2 normal heart sound present RATE: regular rate RHYTHM: r egular rhythm HEART SOUNDS: S1 normal heart sound present and S2 normal heart sound present GI: COMMON NORMALS: Normal to inspection, nondistended, normoactive bowel sounds present, Soft to palpation and non-tender : COMMON NORMALS: Yes no CVA tenderness Extremity: COMMON NORMALS: no calf tenderness and no pedal edema Neuro: COMMON NORMALS: CN's II-XII intact bilaterally and moves all extremities Data 08/20/25 11:45 08/20/25 11:45 Micro: Microbiology 08/20/25 13:10 Blood Culture - Preliminary Blood SPECIMEN COLLECTED 08/20/25 13:08 Blood Culture - Preliminary Blood SPECIMEN COLLECTED A&P Assessment and plan 1. Acute encephalopathy: 2. Acidosis, lactic: 3. Urinary tract infection: 4. Type 2 diabetes mellitus: 5. Hypothyroidism: 6. Moderate protein-energy malnutrition: 7. Liver cirrhosis: 8. Anemia: 9. Hyperammonemia: 10. Sepsis: Plan: Acute encephalopathy - Multifactorial - Hyperammonemia - UTI - Sepsis - Neurochecks - Monitor mentation closely Hyperammonemia - With history of liver cirrhosis - History of declining lactulose - Continue lactulose - Monitor ammonia levels Urinary tract infection - With history of ureteral stent placement at [facility] in July 2025 - Start IV Zosyn - CRP, Pro-Arias, blood cultures, urine cultures - CT scan abdomen pelvis Sepsis - Secondary to UTI Lactic acidosis - Secondary to sepsis - Component of metformin - Will receive fluid bolus - Start IV fluids normal saline 75 cc an hour Acute on chronic anemia, monitor Type 2 diabetes mellitus, low-dose sliding scale Full code Lovenox for DVT prophylaxis PDMP PDMP Reviewed: Not Reviewed Attestations 2 Medical Necessity Statement*: Patient requires hospitalization, inpatient, greater than 2 midnights for lactic acidosis, urinary tract infection, hyperammonemia, acute encephalopathy Diagnoses Acute encephalopathy G93.40 Acidosis, lactic E87.20 Urinary tract infection N39.0 Type 2 diabetes mellitus E11.9 Hypothyroidism E03.9 Moderate protein-energy malnutrition E44.0 Liver cirrhosis K74.60 Anemia D64.9 Hyperammonemia E72.20 Sepsis A41.9 Sepsis Event Note Evaluation Current stage of sepsis: sepsis Possible source: genitourinary Focused Exam Vital Signs Temp Pulse Resp BP Pulse Ox O2 Del Method 08/20/25 13:00 99 116/77 98 08/20/25 12:30 95 117/72 97 08/20/25 11:43 98.2 F 94 17 116/73 97 Room Air Capillary refill: < 3 Seconds Peripheral pulse strength: 2+ Slightly Diminished Peripheral pulse location: Radial Date exam was performed: 08/20/25 Time exam was performed: 14:15
[2025-08-20 14:35] LABS: Reflex Lactate Order REFLEX LACTIC ORDERD
[2025-08-20 15:30] LABS: Lactic Acid level (Lactate) 4.6 mmol/L (0.5-2.2)
[2025-08-20] MEDS: pantoprazole 40 mg SDV IVP (16:06)
[2025-08-20] MEDS: piperacillin-tazobactam 3.375 GM in sodium chloride 0.9% (plus) 50 ML IV (18:19)
--- NOTE | 2025-08-20 18:50 | PHA.VACGOAL ---
Vancomycin Goal - Goal Vancomycin Goal:: 15-20 mg/L Vancomycin Indication:: Other (SEPSIS) - Therapy Current therapy:: Pip/Tazo Day of therpy:: Day []of [] . Actual body weight (kg): 156 lb 1.6 oz - Data Labs: WBC 4.62 10^3/uL (3.29-11.43) 08/20/25 11:45 RBC 4.12 10^6/uL (3.85-5.65) 08/20/25 11:45 Hgb 9.70 g/dL (11.27-16.99) L 08/20/25 11:45 Hct 32.3 % (37-53) L 08/20/25 11:45 MCV 78.4 fl (82-101) L 08/20/25 11:45 MCH 23.5 pg (27-33) L 08/20/25 11:45 MCHC 30.0 g/dL (30-55) 08/20/25 11:45 RDW 20.9 % (12.1-15.1) H 08/20/25 11:45 Sodium 139 mmol/L (136-145) 08/20/25 11:45 Potassium 4.0 mmol/L (3.5-5.1) 08/20/25 11:45 Chloride 107 mmol/L (98-107) 08/20/25 11:45 Carbon Dioxide 18 mmol/L (22-29) L 08/20/25 11:45 Anion Gap 18.0 (5-19) 08/20/25 11:45 BUN 10 mg/dL (8-23) 08/20/25 11:45 Creatinine 0.6 mg/dL (0.7-1.2) L 08/20/25 11:45 GFR Calculation 134.4 mL/min (90-130) H 08/20/25 11:45 Last dialysis session:: N/A Treatment plan:: new consult Regimen:: STARTED 2000 MG LOADING DOSE FOLLOWED BY 1500 MG Q12H MAINTENANCE DOSE FOR SEPSIS DIAGNOSIS. WILL CONTINUE TO MONITOR DAILY AND PLAN TO OBTAIN TROUGH PRIOR TO 4TH DOSE.
[2025-08-20] MEDS: ATORVASTATIN 20 MG TABLET PO (20:45)
[2025-08-20] MEDS: lactulose oral liq 20 gm/30 mL UDC PO (20:50)
[2025-08-21] MEDS: pantoprazole 40 mg SDV IVP ×2 (01:11→14:13)
[2025-08-21] MEDS: lactulose oral liq 20 gm/30 mL UDC PO ×4 (01:11→21:00)
[2025-08-21] MEDS: piperacillin-tazobactam 3.375 GM in sodium chloride 0.9% (plus) 50 ML IV ×3 (01:11→16:31)
[2025-08-21 04:00] VITALS: BP 120/77; PULSE 60; RESP 16; TEMP 36.5; O2SAT 93
[2025-08-21 05:14] LABS: Hematocrit 29.5 % (37-53); Hemoglobin 8.90 g/dL (11.27-16.99); Mean Corpuscular HGB Conc 30.2 g/dL (30-55); Mean Corpuscular Hemoglobin 23.5 pg (27-33); Mean Corpuscular Volume 78.0 fl (82-101); Nucleated Red Blood Cells % 0 %; Platelet Count 142 10^3/cmm (157-399); Red Blood Count 3.78 10^6/uL (3.85-5.65); White Blood Count 6.40 10^3/uL (3.29-11.43)
[2025-08-21 05:37] LABS: Lactate (Lactic Acid level) 1.7 mmol/L (0.5-2.2)
[2025-08-21 05:39] LABS: Alanine Aminotransferase 6 U/L (0-41); Albumin Level 2.8 g/dL (3.5-5.2); Alkaline Phosphatase 82 U/L (40-130); Anion Gap 15.5 (5-19); Aspartate Amino Transferase 13 U/L (0-40); Blood Urea Nitrogen 9 mg/dL (8-23); Calcium 8.2 mg/dL (8.5-10.5); Carbon Dioxide 19 mmol/L (22-29); Chloride 108 mmol/L (98-107); Creatinine Clr Calc Pharmacy 87.9072; Globulin 3.7 g/dL (1.3-4.6); Glucose 84 mg/dL (65-115); Osmolality Calculated 286 mOsm/kg (285-295); Potassium 3.5 mmol/L (3.5-5.1); Sodium 139 mmol/L (136-145); Total Protein 6.5 g/dL (6.6-8.7)
[2025-08-21 07:29] VITALS: BP 115/65; PULSE 84; RESP 17; TEMP 36.7; O2SAT 95
--- NOTE | 2025-08-21 10:12 | PC.SOCIAL ---
*IMM* Patient received a copy of the important message from Medicare, initialed, dated and placed in chart.
--- NOTE | 2025-08-21 10:34 | PC.CHAP ---
Pastoral Care Encounter/Spiritual Assessment Type of Contact [] Declined landing scaler visit [] Patient/Family/Request visit [] Outpatient visit [] Follow-up visit [] Physician referral [] Code/Alert [] Routine visit [] Staff referral [] Actively dying [x] Patient sleeping [] Family support [] [] Out of room [] Palliative care [] [] Receiving care in room [] Pre-surgical visit [] Trauma [] Long length of stay [] ICU visit [] Other: Relational/Emotional Strength [] Patient feels connected with others/family/visitors/staff [] Distress [] Loneliness/isolation [] Abandonment Spirituality of Patient [] Person of Riya [] Attends Holiness of their Riya [] Believes in Prayer [] Reads Bible or Orthodox materials [] There are Spiritual issues to be addressed Neonatal Intensive Care Unit Nurse Interventions [] Prayer [] Active listening [] Non-anxious presence [] Spiritual/emotional support [] Crisis/trauma care [] Spiritual counseling [] Bereavement support [] Provided bereavement packet [] Provided Bible/devotional materials [] Provided toy/stuffed animal, coloring book to patient or family member [] Provided Communion [] Anointing/[place] [] Salvation [] Completed spiritual assessment [] Other: Impact on Illness or Injury [] Angry [] Fearful [] Anxious [] Often cries [] Exhaustion [] Unable to work [] Unable to attend islam [] Unable to walk/stand [] Unable to read [] Unable to drive [] Unable to eat/drink [] Unable to sleep [] Unable to be with family [] Patient intubated [] Other: Summary Time spent with patient
[2025-08-21 11:02] LABS: Ammonia 126 umol/L (16-60)
[2025-08-21 11:48] VITALS: BP 97/61; PULSE 84; RESP 17; TEMP 36.6; O2SAT 92
--- NOTE | 2025-08-21 13:50 | P.PN_ITS ---
Subjective 2 Subjective: Patient was seen this morning, currently alert oriented x 2, following all commands, denies any fevers, no chills, no cough, during my conversation he is quite drowsy, but easily awoken, denies any nausea, no vomiting, abdominal pain, no flank pain Vitals/I&O/Wt Last Vital Signs Temp 97.9 F 08/21/25 11:48 Pulse 84 08/21/25 11:48 Resp 17 08/21/25 11:48 BP 97/61 08/21/25 11:48 Pulse Ox 92 08/21/25 11:48 O2 Del Method Room Air 08/21/25 04:00 08/20/25 08/21/25 08/21/25 22:59 06:59 14:59 Intake Total 1450 / 1450 290 / 1740 830 / 830 Balance 1450 / 1450 290 / 1740 830 / 830 Weight last 48 hrs Weight 1.814 kg Weight 70.806 kg Weight 74.389 kg Physical Exam 2 Const: COMMON NORMALS: no acute distress ORIENTATION/CONSCIOUSNESS: Yes awake, Yes oriented to person and Yes oriented to place; not oriented to time Resp: COMMON NORMALS: normal respiratory effort, No retractions, No use of accessory muscles and clear to auscultation bilaterally AUSCULTATION: clear to auscultation bilaterally Cardio: COMMON NORMALS: regular rate, regular rhythm, S1 normal heart sound present and S2 normal heart sound present RATE: regular rate RHYTHM: r egular rhythm HEART SOUNDS: S1 normal heart sound present and S2 normal heart sound present GI: COMMON NORMALS: Normal to inspection, nondistended, normoactive bowel sounds present and non-tender Extremity: COMMON NORMALS: no pedal edema Neuro: SENSORIUM/ORIENTATION: Yes oriented to person, Yes oriented to place and No oriented to time Data 08/21/25 05:01 08/21/25 05:01 Micro: Microbiology 08/20/25 13:10 Blood Culture - Preliminary Blood NEGATIVE TO DATE 08/20/25 13:08 Blood Culture - Preliminary Blood NEGATIVE TO DATE A&P Assessment and plan 1. Acute encephalopathy: 2. Acidosis, lactic: 3. Urinary tract infection: 4. Type 2 diabetes mellitus: 5. Hypothyroidism: 6. Moderate protein-energy malnutrition: 7. Liver cirrhosis: 8. Anemia: 9. Hyperammonemia: 10. Sepsis: Plan: Acute encephalopathy - Multifactorial - Hyperammonemia - UTI - Sepsis - Neurochecks - Monitor mentation closely Hyperammonemia - With history of liver cirrhosis - History of declining lactulose - Continue lactulose - Monitor ammonia levels Urinary tract infection - With history of ureteral stent placement at [facility] in July 2025 CT/CT kidney stone [id number] IMPRESSION: 1. Breathing motion artifact throughout the abdomen and pelvis. 2. Double-pigtail RIGHT ureteral stent in good position. Resolved hydronephrosis since 07/28/2025. 3. Decrease in size of the RIGHT kidney since the prior study. 4. Cholelithiasis without acute cholecystitis. 5. Cirrhosis with portal venous hypertension and LEFT upper quadrant venous collaterals. 6. No ascites or free air. Limited evaluation for free air with this amount of motion. 7. Osteopenia. 8. 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 - Start IV Zosyn, IV vancomycin - Follow blood cultures -Follow urine culture Sepsis - Secondary to UTI Lactic acidosis - Secondary to sepsis - Component of metformin - Will receive fluid bolus - IV fluids normal saline 75 cc an hour Acute on chronic anemia, monitor Type 2 diabetes mellitus, low-dose sliding scale Full code Lovenox for DVT prophylaxis Plan for today monitor urine cultures, blood cultures, IV fluids, monitor ammonia levels, will speak to urology at [facility] PDMP PDMP Reviewed: Not Reviewed Attestations 2 Medical Necessity Statement*: Patient requires hospitalization for complicated UTI with right ureteral stent placement, hyperammonemia, acute encephalopathy, sepsis Diagnoses Acute encephalopathy G93.40 Acidosis, lactic E87.20 Urinary tract infection N39.0 Type 2 diabetes mellitus E11.9 Hypothyroidism E03.9 Moderate protein-energy malnutrition E44.0 Liver cirrhosis K74.60 Anemia D64.9 Hyperammonemia E72.20 Sepsis A41.9
[2025-08-21 17:04] VITALS: BP 106/69; PULSE 89; RESP 16; TEMP 36.9; O2SAT 96
[2025-08-21 19:45] VITALS: BP 92/58; PULSE 92; RESP 16; TEMP 36.9; O2SAT 96
[2025-08-21] MEDS: ATORVASTATIN 20 MG TABLET PO (21:00)
[2025-08-22] VITALS: BP 95/55; PULSE 86; RESP 17; TEMP 36.9; O2SAT 98
[2025-08-22] MEDS: pantoprazole 40 mg SDV IVP (00:44)
[2025-08-22] MEDS: lactulose oral liq 20 gm/30 mL UDC PO (00:44)
[2025-08-22] MEDS: piperacillin-tazobactam 3.375 GM in sodium chloride 0.9% (plus) 50 ML IV ×2 (00:45→09:38)
[2025-08-22 04:00] VITALS: BP 95/62; PULSE 81; RESP 16; TEMP 36.6; O2SAT 95
[2025-08-22 05:38] LABS: Hematocrit 29.1 % (37-53); Hemoglobin 8.70 g/dL (11.27-16.99); Mean Corpuscular HGB Conc 29.9 g/dL (30-55); Mean Corpuscular Hemoglobin 23.6 pg (27-33); Mean Corpuscular Volume 78.9 fl (82-101); Nucleated Red Blood Cells % 0 %; Platelet Count 149 10^3/cmm (157-399); Red Blood Count 3.69 10^6/uL (3.85-5.65); White Blood Count 4.86 10^3/uL (3.29-11.43)
[2025-08-22 06:02] LABS: Alanine Aminotransferase 6 U/L (0-41); Albumin Level 2.5 g/dL (3.5-5.2); Alkaline Phosphatase 76 U/L (40-130); Anion Gap 14.4 (5-19); Aspartate Amino Transferase 14 U/L (0-40); Blood Urea Nitrogen 8 mg/dL (8-23); Calcium 7.7 mg/dL (8.5-10.5); Carbon Dioxide 20 mmol/L (22-29); Chloride 112 mmol/L (98-107); Creatinine Clr Calc Pharmacy 2.2990; Globulin 4.0 g/dL (1.3-4.6); Glucose 87 mg/dL (65-115); Osmolality Calculated 294 mOsm/kg (285-295); Potassium 3.4 mmol/L (3.5-5.1); Sodium 143 mmol/L (136-145); Total Protein 6.5 g/dL (6.6-8.7)
[2025-08-22 06:11] LABS: Lactate (Lactic Acid level) 1.7 mmol/L (0.5-2.2)
[2025-08-22 08:07] VITALS: BP 100/66; PULSE 80; RESP 16; TEMP 36.4; O2SAT 96
[2025-08-22 09:07] LABS: Ammonia 87 umol/L (16-60)
[2025-08-22 11:53] VITALS: BP 92/59; PULSE 79; RESP 18; TEMP 36.6; O2SAT 95
[2025-08-22 12:35] VITALS: O2SAT 96; O2SAT 99
--- NOTE | 2025-08-22 13:03 | PM.DCS ---
Discharge Providers Date of Admission: 08/20/25 13:33 Date of Discharge: August 22, 2025 Attending Provider at Admission: Andrew Amato MD Attending Provider at Discharge: Andrew Amato MD Primary Care Provider: Demarcus Poole DO Diagnoses at Discharge Discharge Diagnosis 1. Acute encephalopathy: 2. Acidosis, lactic: 3. Urinary tract infection: 4. Type 2 diabetes mellitus: 5. Hypothyroidism: 6. Moderate protein-energy malnutrition: 7. Liver cirrhosis: 8. Anemia: 9. Hyperammonemia: 10. Sepsis: Reason for Visit Reason for Visit: [facility] Hospital Course Hospital Course Bernardino Jackson is a 65 year old male with a past medical history of hyperammonemia, history of UTI, history of ureteral stent placement at [facility] in July 2025, history of liver cirrhosis, type 2 diabetes mellitus history of chronic anemia who presents [facility] due to altered mental status. Currently patient is alert to person, to place, not to time he follows commands, no facial droop no slurring of his words, he is able to move bilateral upper and lower extremities I cannot discern any focal weakness. He denies any abdominal pain, flank pain, no nausea, vomiting, no chest pain, shortness of breath, he does not know why he is here in the hospital but does report that the nursing staff at [facility] has been concerned about his confusion. He is not exactly sure about the status of his ureteral stent that was placed at [facility] he is not sure if it was removed or not, denies any dysuria, hematuria. I reached out to [facility] skilled nursing, patient has not had a fall, no recent UTI, they are not sure if he has her usual stent in place or not, they do report that Bernardino has been refusing his lactulose. Patient was admitted to [facility] for acute encephalopathy - For hyperammonemia, with underlying liver cirrhosis, with urinary tract infection - Overall patient's mentation improved, on discharge she is alert oriented x 3, following all commands For hyperammonemia, overall patient clinically improved with lactulose, discussed the importance of compliance with lactulose, discharged with close follow-up with GI in [place] For urinary tract infection, with history of right ureteral stent placement, blood cultures so far negative, urine cultures so far negative, remains afebrile will discharge on 7 days of Levaquin. For patient's history of right ureteral stent - CT/CT kidney stone [id number] IMPRESSION: 1. Breathing motion artifact throughout the abdomen and pelvis. 2. Double-pigtail RIGHT ureteral stent in good position. Resolved hydronephrosis since 07/28/2025. 3. Decrease in size of the RIGHT kidney since the prior study. 4. Cholelithiasis without acute cholecystitis. 5. Cirrhosis with portal venous hypertension and LEFT upper quadrant venous collaterals. 6. No ascites or free air. Limited evaluation for free air with this amount of motion. 7. Osteopenia. 8. 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 -spoke to urology at [facility] in [place], recommended no acute intervention or transfer is needed, patient has an appointment September 04, 2025 for surgical intervention for right ureteral stent - Patient was advised he will have to follow-up with urology August 31, 2025 Physical Exam Const: COMMON NORMALS: no acute distress and patient oriented x3 Eye: COMMON NORMALS: Equal, round and reactive pupils present and EOMs intact bilaterally PUPIL: Yes Equal, round and reactive pupils present Resp: COMMON NORMALS: normal respiratory effort, No retractions, No use of accessory muscles and clear to auscultation bilaterally AUSCULTATION: clear to auscultation bilaterally Cardio: COMMON NORMALS: regular rate, regular rhythm, S1 normal heart sound present and S2 normal heart sound present RATE: regular rate RHYTHM: regular rhythm HEART SOUNDS: S1 normal heart sound present and S2 normal heart sound present GI: COMMON NORMALS: Normal to inspection, nondistended, normoactive bowel sounds present and non-tender Extremity: COMMON NORMALS: no pedal edema Neuro: COMMON NORMALS: patient oriented x3 and CN's II-XII intact bilaterally Psych: COMMON NORMALS: mental status grossly normal Discharge Data Studies Completed and Pending Completed Studies During Hospitalization Category Date Time Status CT head wo con* [id number] Stat Cat Scan 08/20/25 11:[address] kidney stone [id number] Stat Cat Scan 08/20/25 13:10 Completed XR chest 1V portable [id number] Stat Exams 08/20/25 11:42 Completed Pending at discharge Category Date Time Status Basic Metabolic Panel AM LABS Lab 08/23/25 04:00 Ordered Blood Culture Stat Lab 08/20/25 13:10 Results Complete Blood Count w/Auto AM LABS Lab 08/23/25 04:00 Ordered Comprehensive Metabolic Panel AM LABS Lab 08/23/25 04:00 Ordered Lactate (Lactic Acid level) AM LABS Lab 08/23/25 04:00 Ordered Urine Culture Stat Lab 08/20/25 12:30 Results Vancomycin Trough Timed Lab 08/22/25 18:00 Ordered Radiology Impressions Chest X-Ray 08/20/25 11:42 IMPRESSION: Stable chest with mild central pulmonary venous congestion. No acute chest abnormality. Head CT 08/20/25 11:44 IMPRESSION: 1. No acute intracranial hemorrhage or edema. 2. Mild cerebral atrophy with small vessel disease. 3. Moderate cerebellar atrophy. Abdomen/Pelvis CT 08/20/25 13:10 IMPRESSION: 1. Breathing motion artifact throughout the abdomen and pelvis. 2. Double-pigtail RIGHT ureteral stent in good position. Resolved hydronephrosis since 07/28/2025. 3. Decrease in size of the RIGHT kidney since the prior study. 4. Cholelithiasis without acute cholecystitis. 5. Cirrhosis with portal venous hypertension and LEFT upper quadrant venous collaterals. 6. No ascites or free air. Limited evaluation for free air with this amount of motion. 7. Osteopenia. 8. 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 Laboratory Results WBC 4.86 10^3/uL (3.29-11.43) 08/22/25 05:15 RBC 3.69 10^6/uL (3.85-5.65) L 08/22/25 05:15 Hgb 8.70 g/dL (11.27-16.99) L 08/22/25 05:15 Hct 29.1 % (37-53) L 08/22/25 05:15 MCV 78.9 fl (82-101) L 08/22/25 05:15 MCH 23.6 pg (27-33) L 08/22/25 05:15 MCHC 29.9 g/dL (30-55) L 08/22/25 05:15 RDW 21.0 % (12.1-15.1) H 08/22/25 05:15 Plt Count 149 10^3/cmm (157-399) L 08/22/25 05:15 MPV 11.0 fL (7.4-10.4) H 08/22/25 05:15 Neut % (Auto) 40.4 % 08/22/25 05:15 Lymph % (Auto) 40.9 % 08/22/25 05:15 Cloud % (Auto) 10.1 % 08/22/25 05:15 Eos % (Auto) 7.4 % 08/22/25 05:15 Baso % (Auto) 1.0 % 08/22/25 05:15 Neut # (Auto) 1.96 10^3/uL (1.8-7.7) 08/22/25 05:15 Lymph # (Auto) 2.0 10^3/uL (0.8-4.8) 08/22/25 05:15 Cloud # (Auto) 0.5 10^3/uL (0.2-0.9) 08/22/25 05:15 Eos # (Auto) 0.4 10^3/uL (0.0-0.8) 08/22/25 05:15 Baso # (Auto) 0.1 10^3/uL (0.0-0.1) 08/22/25 05:15 Nucleated RBC % (auto) 0 % 08/22/25 05:15 Nucleated RBCs # 0.0 /100WBC 08/22/25 05:15 PT 16.90 SECONDS (12.1-14.9) H 08/20/25 11:45 INR 1.28 (0.8-1.2) H 08/20/25 11:45 Sodium 143 mmol/L (136-145) 08/22/25 05:15 Potassium 3.4 mmol/L (3.5-5.1) L 08/22/25 05:15 Chloride 112 mmol/L (98-107) H 08/22/25 05:15 Carbon Dioxide 20 mmol/L (22-29) L 08/22/25 05:15 Anion Gap 14.4 (5-19) 08/22/25 05:15 BUN 8 mg/dL (8-23) 08/22/25 05:15 Creatinine 0.5 mg/dL (0.7-1.2) L 08/22/25 05:15 GFR Calculation 165.9 mL/min (90-130) H 08/22/25 05:15 Glucose 87 mg/dL (65-115) 08/22/25 05:15 POC Glucose 132 mg/dL (70-110) H 08/22/25 10:41 Calculated Osmolality 294 mOsm/kg (285-295) 08/22/25 05:15 Lactic Acid 5.3 mmol/L (0.5-2.2) H* 08/20/25 11:45 Lactic Acid (Sepsis) 4.6 mmol/L (0.5-2.2) H* 08/20/25 15:03 Lactate 1.7 mmol/L (0.5-2.2) 08/22/25 05:15 Calcium 7.7 mg/dL (8.5-10.5) L 08/22/25 05:15 Total Bilirubin 1.0 mg/dL (0.15-1.2) 08/22/25 05:15 AST 14 U/L (0-40) 08/22/25 05:15 ALT 6 U/L (0-41) 08/22/25 05:15 Alkaline Phosphatase 76 U/L (40-130) 08/22/25 05:15 Ammonia 87 umol/L (16-60) H 08/22/25 08:40 C-Reactive Protein 3.0 mg/L (0.0-4.9) 08/20/25 11:45 Total Protein 6.5 g/dL (6.6-8.7) L 08/22/25 05:15 Albumin 2.5 g/dL (3.5-5.2) L 08/22/25 05:15 Globulin 4.0 g/dL (1.3-4.6) 08/22/25 05:15 Procalcitonin 0.05 ng/mL (0-0.5) 08/20/25 11:45 TSH 0.78 uIU/mL (0.27-4.20) 08/20/25 11:45 Urine Color Yellow (Yellow) 08/20/25 12:30 Urine Appearance Cloudy (CLEAR) A 08/20/25 12:30 Urine pH 7.0 (5-7) 08/20/25 12:30 Ur Specific Beals 1.015 (1.005-1.030) 08/20/25 12:30 Urine Protein Trace (Negative) A 08/20/25 12:30 Urine Glucose (UA) Negative (Normal) 08/20/25 12:30 Urine Ketones Negative (Negative) 08/20/25 12:30 Urine Blood 2+ (Negative) A 08/20/25 12:30 Urine Nitrate Negative (Negative) 08/20/25 12:30 Urine Bilirubin Negative (Negative) 08/20/25 12:30 Urine Urobilinogen 1.0 mg/dL (Negative) 08/20/25 12:30 Ur Leukocyte Esterase 3+ (Negative) A 08/20/25 12:30 Urine RBC 5-10 /hpf (0-2) H 08/20/25 12:30 Urine WBC 21-50 /hpf (0-5) H 08/20/25 12:30 Ur Squamous Epith Cells 5-10 /hpf (0-5) H 08/20/25 12:30 Amorphous Sediment Not Reportable 08/20/25 12:30 Urine Bacteria 3+ /hpf (NONE) H 08/20/25 12:30 Urine Mucus 1+ /hpf 08/20/25 12:30 Urine Opiates Screen Positive ng/mL (Negative) H 08/20/25 12:30 Ur Barbiturates Screen Negative ng/mL (Negative) 08/20/25 12:30 Ur Phencyclidine Scrn Negative ng/mL (Negative) 08/20/25 12:30 Ur Amphetamines Screen Negative ng/mL (Negative) 08/20/25 12:30 U Benzodiazepines Scrn Negative ng/mL (Negative) 08/20/25 12:30 Urine Cocaine Screen Negative ng/mL (Negative) 08/20/25 12:30 U Marijuana (THC) Screen Negative ng/mL (Negative) 08/20/25 12:30 Ethyl Alcohol < 10 mg/dL (0-10) 08/20/25 11:45 Vitals Last Vital Signs Temp 97.9 F 08/22/25 11:53 Pulse 79 08/22/25 11:53 Resp 18 08/22/25 11:53 BP 92/59 08/22/25 11:53 Pulse Ox 96 08/22/25 12:35 O2 Del Method Room Air 08/22/25 11:53 Discharge Plan Discharge Patient Disposition: Xfer SNF Condition: Stable Prescriptions: New levofloxacin 750 mg tablet 750 mg PO DAILY 7 Days Qty: 7 0RF Continued metformin 1,000 mg Tablet 1,000 mg PO BID hydrocodone-acetaminophen 5-325 mg tablet 1 tab PO Q8H PRN (Reason: Pain) alum-mag hydroxide-simeth [Mylanta] 200-200-20 mg/5 mL Suspension 10 ml PO QID PRN (Reason: Indigestion) Rx Instructions: administer between meals and at bedtime acetaminophen [Tylenol] 325 mg Tablet 650 mg PO Q6H PRN (Reason: Pain/increased temp) eszopiclone [Lunesta] 1 mg Tablet 1 mg PO BEDTIME sucralfate 1 gram Tablet 1 g PO AC&BEDTIME Qty: 60 0RF simvastatin 40 mg Tablet 40 mg PO BEDTIME levothyroxine 25 mcg Tablet 25 mcg PO DAILY potassium chloride 20 mEq Packet 20 meq PO BID omeprazole 20 mg Capsule,Delayed Release(Dr/Ec) 20 mg PO BID Changed lactulose 10 gram/15 mL solution 30 ml PO Q8H 30 Days Qty: 2700 0RF Discharge Order = DC NOW: Discharge Order (Routine); Ordered 08/22/25 Ordered By: Andrew Amato Referrals: [facility] [Outside] Pawel Ruiz MD [Referring, Urology] - 4-7 days Referral Note: right ureteral stent, has surgery sep 04 Demarcus Poole DO [Primary Care Provider, Internal Medicine] Discharge Diet: Cardiac Discharge Activity: Resume usual activity Patient Instructions: Lactulose (By mouth), Levofloxacin (By mouth) (Levaquin, Levaquin Leva-salvador), Altered Mental Status (ED), Encephalopathy (GEN), Opioid Safety, Patient Portal & Janine Instructions Activity Restrictions/Additional Instructions: - You have a appointment with urology in [facility] September 04, for surgery for your right ureteral stent Discharge Attestations Time Spent in Discharge Care*: greater than 30 min Quality Metrics Clinical Quality Measures [ No reported AMI, CVA or VTE this stay] Coding Level of Care Code 32917 Total time (in minutes) for Discharge: 45 Diagnoses Acute encephalopathy G93.40 Acidosis, lactic E87.20 Urinary tract infection N39.0 Type 2 diabetes mellitus E11.9 Hypothyroidism E03.9 Moderate protein-energy malnutrition E44.0 Liver cirrhosis K74.60 Anemia D64.9 Hyperammonemia E72.20 Sepsis A41.9
--- NOTE | 2025-08-22 14:06 | PC.NURSE ---
report called to Harriet MONTANO at [facility]
[2025-08-22 15:11] VITALS: BP 100/66; PULSE 80; RESP 16; TEMP 36.6; O2SAT 96
--- NOTE | 2025-08-22 15:14 | PC.NURSE ---
[facility] came and picked the patient up at this time.
== END 2025-08-22 14:30 | disposition skilled nursing facility (03) | DRG 871 ==
LOC: ER 12:55 → MEDSURG 13:33
PROVIDERS: Admitting Provider Family Medicine; Emergency Provider Emergency Medicine; PCP Internal Medicine; Visit Provider Family Medicine
DX: A41.9 Sepsis, unspecified organism (principal); G93.41 Metabolic encephalopathy; E87.20 Acidosis, unspecified; N39.0 Urinary tract infection, site not specified; E44.0 Moderate protein-calorie malnutrition; E72.4 Disorders of ornithine metabolism; E11.9 Type 2 diabetes mellitus without complications; E03.9 Hypothyroidism, unspecified; Z68.23 Body mass index [BMI] 23.0-23.9, adult; K74.60 Unspecified cirrhosis of liver; D64.9 Anemia, unspecified; Z79.84 Long term (current) use of oral hypoglycemic drugs; G47.00 Insomnia, unspecified; Z90.79 Acquired absence of other genital organ(s); Z87.440 Personal history of urinary (tract) infections; Z85.46 Personal history of malignant neoplasm of prostate
CPT/HCPCS: 36415; 36416; 70450; 71045; 74176; 80053; 80306; 80307; 81001; 82140; 82962; 83605; 84145; 84443; 85025; 85610; 86140; 87040; 87077; 87086; 87186; 93005; 94664; 94760; 96372; 99285; J1650; J1815; J2470; J2543; J3372; J3373; J7120; J9999

== ENCOUNTER 2025-09-19 22:48 | Emergency (ER) | payer MEDICARE, SELFPAY ==
[2025-09-19 22:49] VITALS: BP 131/68; PULSE 134; RESP 30; TEMP 38.7; O2SAT 98; BMI 26.7
[2025-09-19 22:54] VITALS: BP 127/70; PULSE 130; RESP 18; O2SAT 94
--- NOTE | 2025-09-19 22:57 | XRR_ITS ---
PROCEDURE INFORMATION: Exam: XR Chest Exam date and time: 09/19/2025 11:11 PM Age: 65 years old Clinical indication: Fever and shortness of breath; Additional info: Fever, shortness of breath TECHNIQUE: Imaging protocol: Radiologic exam of the chest. Views: 1 view. COMPARISON: CR XR chest 1V portable [id number] 08/20/2025 12:01 PM FINDINGS: Lungs: Unremarkable. No consolidation. Pleural spaces: Unremarkable. No pleural effusion. No pneumothorax. Heart/Mediastinum: Unremarkable. No cardiomegaly. Bones/joints: Unremarkable. XR/XR chest 1V portable [id number] IMPRESSION: No acute findings.
--- OUTSIDE RECORDS SUMMARY | 2025-09-19 22:59 | XMS_ITS | Clinical Summary ---
Author Organization [facility] Address [address] [place] [address] Care Team Providers Care Manager Private Name Role Phone Sanam Sosa Primary Care Provider [phone] Allergies Active Allergy Reactions Criticality Noted Date Comments Haloperidol Lactate Arrhythmia,Bradycard ia High 02/11/2014 Heart block and bradycardia after receiving Medications levothyroxine 25 mcg tablet Take 1 Tablet (25 mcg) by mouth daily lever miller. 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 Inhaled Oxygen Concentration - - Weight 106.1 kg (234 lb) 11/13/2020 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 Height 177.8 cm (5' 10 ) 11/13/2020 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 Body Mass Index 33.58 11/13/2020 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 Plan of Treatment Health Maintenance Due Date Last Done Comments DIABETES ANNUAL FOOT EXAM 1976 DIABETES ANNUAL RETINAL EXAM 1976 DTAP/TDAP/TD VACCINES (1 - Tdap) 1977 PNEUMOCOCCAL VACCINE 50+ YEA RS (1 of 2 - PCV) 1977 FIT-DNA Q 3 years 2003 FIT/FOBT Q 1 year 2003 Flex Sig/CT Colonography Q 5 years 2003 RSV VACCINE (60+ or ) (1 - Risk 50-74 years 1-dose series) 2008 ZOSTER VACCINE (1 of 2) 2008 DIABETES MICROALBUMIN ANNUAL SCREEN 08/02/2020 08/02/2019 DIABETES [...] complication, without long-term current use of insulin ([facility]) HEMOGLOBIN A1C Routine 03/02/2021 8:22 AM CDT Type 2 diabetes mellitus without complication, without long-term current use of insulin ([facility]) MICROALBUMIN/CREATIN INE RATIO, RANDOM UR Routine 08/02/2019 11:27 AM CDT from Last 3 Months or Most Recently Relevant to Health Maintenance Results * (ABNORMAL) HEMOGLOBIN A1C (03/02/2021 8:22 AM CDT) HEMOGLOBIN A1C 6.5(H) See Comment % 03/02/2021 9:11 PM CDT [facility] EST. AVG GLUCOSE, A1C 140 mg/dL 03/02/2021 9:11 PM CDT [facility] Blood Venipuncture / Unknown 03/02/2021 8:22 AM CDT 03/02/2021 8:46 PM CDT Narrative [facility] - 03/02/2021 9:11 PM CDT HGB A1C INTERPRETATION NORMAL: <5.7% PRE-DIABETES: 5.7 - 6.4% DIABETES: 6.5% OR GREATER Falsely low A1C measurements can occur when: 1. Anemia and/or hemolytic anemia is present. 2. Hemoglobin variants present. 3. Renal failure. 4. Transfusion of blood product in the last 120 days. We recommend ordering a fructosamine test([id number]) to more accurately assess glycemic status if any of the above conditions are present. us Sanam Sosa DO CHEMISTRY ORDERABLES Final Result [facility] CLIA# [id number] Formerly named [facility] [place] [place] [address] * (ABNORMAL) LIPID PANEL (03/02/2021 8:22 AM CDT) CHOLESTEROL 176 <200 mg/dL 03/02/2021 9:33 PM CDT [facility] TRIGLYCERIDE 177(H) <150 mg/dL 03/02/2021 9:33 PM CDT [facility] HDL 48 40 - 59 mg/dL 03/02/2021 9:33 PM CDT [facility] LDL CALCULATED 93 <100 mg/dL 03/02/2021 9:33 PM CDT [facility] NON-HDL CHOLESTEROL 128 <130 mg/dL 03/02/2021 9:33 PM CDT [facility] Blood Venipuncture / Unknown 03/02/2021 8:22 AM CDT 03/02/2021 8:47 PM CDT Narrative [facility] - 03/02/2021 9:33 PM [...] Sanam Sosa DO CHEMISTRY ORDERABLES Final Result [facility] CLIA# [id number] [address] [place] [address] * MICROALBUMIN/CREATININE RATIO, RANDOM UR (08/02/2019 11:27 AM CDT) MICROALBUMIN, URINE <1.2 No Reference Range mg/dL 08/02/2019 8:03 PM CDT [facility] CREATININE, URINE 56.4 40.0 - 278.0 mg/dL 08/02/2019 8:03 PM CDT [facility] Comment:Reference Range vari es with fluid intake and diet. Urine URINE SPECIMEN OBTAINED BY CLEAN CATCH PROCEDURE / Unknown Collection / Unknown 08/02/2019 11:27 AM CDT 08/02/2019 7:25 PM CDT Narrative [facility] - 08/02/2019 8:03 PM CDT Condition Microalbumin/Creat ratio Normal Males <17 Normal Females <25 Microalbuminuria Males 17-299 Microalbuminuria Females 25-299 Overt proteinuria >=300 Unable to calculate urine microalbumin/creatinine ratio because urine microalbumin result is outside of reportable range. Sanam Sosa DO URINE ORDERABLES Final Resu lt [facility] CLIA# [id number] [address] [place] [id number] from Last 3 Months or Most Recently Relevant to Health Maintenance Insurance [facility] BCBS Advance Directives For more information, please contact: [phone] * Full Code (Latest Code Status on [...] 7:02 AM 08/27/2010 2:50 PM Care Teams Manager Private Relationship Specialty Start Date End Date Sanam Sosa DO [address] [place] [id number] PCP - General Family Practice 11/23/10
--- OUTSIDE RECORDS SUMMARY | 2025-09-19 22:59 | XMS_ITS | Encounter Summary ---
Author Organization [facility] Address [address] [place] [address] Care Team Providers Care Driver License Technician Name Role Phone Sanam Sosa DO Primary Care Provider Encounter Details Date Type Department Care Team (Latest Contact Info) Description 11/05/2005 Outpatient Historical [facility] Family Medicine- [place] [address] [place] [address] Maximo Fox, RESEARCH ENVIRONMENTAL SCIENTIST [address] [place], [place] [id number] BRONCHITIS NOS (Primary Dx) Social History Tobacco Use Types Packs/Day Years Used Date Smoking Tobacco: Never Assessed Sex and Gender Information Value Date Recorded Sex Assigned at Not on file 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 Gender Identity Not on file Sexual Orientation Not on file documented as of this encounter Plan of Treatment Not on file documented as of this encounter Visit Diagnoses Diagnosis Bronchitis, not specified as acute or chronic- Primary documented in this encounter Additional Health Concerns Infection Onset Date Last Indicated Resolved Time MRSA Comment:Nares 10/23/16 RESOLVED 10/25/2016 10/25/2016 10/24/20 17 3:59 

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
--- OUTSIDE RECORDS SUMMARY | 2025-09-19 22:59 | XMS_ITS | Encounter Summary ---
Author Organization [facility] Address [address] [place] [address] Care Team Providers Care Financial Planning Advisor Name Role Phone Sanam Sosa DO Primary Care Provider Encounter Details Date Type Department Care Team (Latest Contact Info) Description 05/26/2006 Outpatient Historical [facility] Family Medicine- [place] [address] [place] [address] Rodrigue Grissom MD NO ADDRESS ON FILE Acute Sinusitis, Unspecified (Primary Dx); Acute Bronchitis Social History Tobacco Use Types Packs/Day Years Used Date Smoking Tobacco: Never Assessed Sex and Gender Information Value Date Recorded Sex Assigned at Not on file 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 Gender Identity Not on file Sexual Orientation Not on file documented as of this encounter Plan of Treatment Not on file documented as of this encounter Visit Diagnoses Diagnosis Acute sinusitis, unspecified- Primary Acute bronchitis documented in this encounter Additional Health Concerns Infection Onset Date Last Indicated Resolved Time MRSA Comment:Narama 10/23/16 RESOLVED 10/25/2016 10/25/2016 10/24/20 17 3:59 PM MANAGER MAC documented as of this encounter Care Teams Financial Planning Advisor Relationship Specialty Start Date End Date Sanam Sosa DO [address] [facility] [place] [id number] PCP - General Family Practice 11/23/10 documented as of this encounter
--- OUTSIDE RECORDS SUMMARY | 2025-09-19 22:59 | XMS_ITS | Data Portability ---
Author Organization [facility] April Quintero [facility] Address [address] [place] [address] ROSANNE ELLSWORTH MOHAN [address] Assessment No assessment recorded. Plan of Treatment Reminders Order Date Submit Date Provider Last Modified By Organization Details Last Modified Time Details Appointments None record ed. Lab None record ed. Referral None record ed. Procedures None record ed. Surgeries None record ed. Imaging None record ed. Medication Orders None record ed. Patient TargetsNo targets recorded. Patient Instructions Encounter Date Encounter Id Patient Instructions Last Modified By Organization Details Last Modified Time 07/11/2025 [id number] increase gabapentin to tid. [email or web address] Not available 07/11/2025 16:19:33 07/18/2025 [id number] Admitted for upper GI bleed, no endoscopy done. Protonix increased to BID x 15 days. Labs on Tuesday x 2 weeks. [email or web address] Not available 07/18/2025 13:41:59 07/22/2025 [id number] frequently sleeping during the day. D/c gabapentin and lunesta. [email or web address] Not available 07/22/2025 14:18:54 08/08/2025 [id number] minimal records and patient unsure of what he has been through; will request; [facility] notes show obstructive stone with stranding and need for urology so transferred to [facility], cmp,a1c on Tuesday. [email or web address] Not available 08/13/2025 16:02:15 08/19/2025 [id number] [facility] notes reviewed; improved quickly with lactulose discussed with nursing the need for taking lactulose regularly and goal of at least 3-4 bm's per day d/c iron and gabapentin Not available 08/19/2025 15:41:45 Reason for Referral None Reported. Problems Name Problem SNOMED Code Status Onset Date Resolution Date Notes Provider Name and Address Organization Details Recorded Time Janell caballero 6993311 Active 2019 alcoholism ; 09/01/2020 11:21AM by Pito Terrell, Office Visit; Promoted; acuity set as *; Not Available [facility] 3 03:07:35 Bipolar disorder 60147605 Active 2019 bipolar disorder mixed with psychotic features; 09/01/2020 11:21AM by Pito Terrell, Office Visit; Promoted; acuity set as *; Not Available [facility] 3 03:07:37 Chronic insomnia 275936003 Active 2024 ОЛЬГА DUNAWAY [facility], [facility] 5 14:33:17 Problem Notes None recorded. Medical Equipment None Reported. Medications Name Sig Start Date Stop Date Status Note LastModified by Organization Details LastModified Time acetaminop hen 325 mg tablet take 2 tablets BY MOUTH EVERY 6 HOURS as needed for mild/mode rate pain OR temperatu re >/= 101 active Not Available Not Available No t Available hydrocodon e 5 mg-acetami nophen 325 mg tablet Take 1 tablet 3 times a day by oral route as needed for 30 days. active Not Available Not Available No t Available thiamine HCl (vitamin B1) 100 mg tablet TAKE ONE TABLET BY MOUTH EVERY DAY active Not Available Not Available No t Available pantoprazo le 40 mg tablet,del ayed release daily active Not Available Not Available Not Available eszopiclon e 2 mg tablet Take 1 tablet every day by oral route at bedtime for 30 days. 2024 active Not Available Not Available Not Avai lable carbamazep ine two times daily active 0; Recorded 0 11:21AM by Pito Terrell, Office Visit; Not Available Not Available Not Available olanzapine at bedtime active 0; Recorded 0 11:21AM by Pito Terrell, Office Visit; Not Available Not Available Not Available furosemide two times daily active 0; Recorded 0 11:21AM by Pito Terrell, Office Visit; Not Available Not Available Not Available metformin two times daily active 0; Recorded 0 11:21AM by Pito Terrell, Office Visit; Not Available Not Available Not Available [facility] Levothyrox ine Sodium daily active 0; Recorded 0 11:21AM by Pito Terrell, Office Visit; Not Available Not Available Not Available Tab-A-Tracee 400 mcg tablet TAKE ONE TABLET BY MOUTH DAILY active Not Available Not Available No t Available Vitals Date Recorded Body weight Heart rate Respiratory rate Body temperature Oxygen saturation Oxygen saturation in Arterial blood by Pulse oximetry Systolic And Diastolic Provider Name and Address Organization Details Last Updated DateTime 5 67059.0 7 g 90 /min 16 /min 98.5 [degF] 95 % 95 % 115/61 mm[Hg] [facility] 5 16:18:03 Date Recorded Body weight Heart rate Respiratory rate Body temperature Oxygen saturation Oxygen saturation in Arterial blood by Pulse oximetry Systolic And Diastolic Provider Name and Address Organization Details Last Updated DateTime 5 74508.6 6 g 78 /min 16 /min 98.5 [degF] 98 % 98 % 118/62 mm[Hg] [facility] 5 13:39:05 Date Recorded Body weight Heart rate Respiratory rate Body temperature Oxygen saturation Oxygen saturation in Arterial blood by Pulse oximetry Systolic And Diastolic Provider Name and Address Organization Details Last Updated DateTime 5 22363.2 6 g 85 /min 20 /min 98.9 [degF] 97 % 97 % 107/61 mm[Hg] [facility] 5 14:17:07 Date Recorded Body weight Heart rate Respiratory rate Body temperature Oxygen saturation Oxygen saturation in Arterial blood by Pulse oximetry Systolic And Diastolic Provider Name and Address Organization Details Last Updated DateTime 5 41748.6 3 g 67 /min 20 /min 100.2 [degF] 98 % 98 % 120/60 mm[Hg] [facility] 5 13:45:13 Date Recorded Body weight Heart rate Respiratory rate Body temperature Oxygen saturation Oxygen saturation in Arterial blood by Pulse oximetry Systolic And Diastolic Provider Name and Address Organization Details Last Updated DateTime 5 60685.0 7 g 87 /min 20 /min 97.5 [degF] 95 % 95 % 101/61 mm[Hg] ОЛЬГА DUNAWAY [facility] 5 14:38:15 Social History None recorded. Functional Status None recorded. Mental Status None recorded. Family History Nothing Reported. Medical History No medical history recorded. Immunizations Vaccine Type Date Status Note Provider Nam e and Address Organization Details Recorded Time Tdap 7 completed Not Available [facility] 06/04/2023 02:43:58 zoster recombinant 8 completed Not Available [facility] 08/19/2025 13:42:50 zoster recombinant 9 completed Not Available [facility] 08/19/2025 13:42:50 Influenza, split virus, quadrivalent, PF 9 completed Not Available [facility] 08/19/2025 13:42:50 COVID-19, mRNA, LNP-S, PF, 100 mcg/0.5mL dose or 50 mcg/0.25mL dose 1 completed Not Available [facility] 08/19/2025 13:42:50 COVID-19, mRNA, LNP-S, PF, 100 mcg/0.5mL dose or 50 mcg/0.25mL dose 1 completed Not Available [facility] 08/19/2025 13:42:50 Influenza, split virus, quadrivalent, PF 2 completed Not Available [facility] 08/19/2025 13:42:50 Past Encounters Encounter ID Performer Location Encounter Start Date Encounter Closed Date Diagnosis/Indication Diagnosis SNOMED-CT Code Diagnosis ICD10 Code Diagnosis IMO Codes Diagnosis Note [id number] Demarcus Poole DO [facility] ([facility]) [address] [place] [address] 03/18/2025 14:52:50 03/23/2025 07:29:49 Alcoholism 2777471 F10.20 Bipolar disorder 7291547 4 F31.9 Pain of ri ght shoulder region 1791658889 M25.511 [id number] Demarcus Poole DO [facility] ([facility]) [address] [place] [address] 5 03/20/2025 13:51:08 03/22/2025 14:20:18 Bipolar disorder 77252155 F31.9 Alcoholism 5309881 F10.2 0 Depressive disorder 3548 9007 F32.9 [id number] Demarcus Poole DO [facility] ([facility]) [address] [place], [place] [address] 03/28/2025 08:29:08 03/29/2025 16:13:03 [id number] Demarcus Poole [facility] ([facility]) [address] [phone] 04/15/2025 10:32:40 04/23/2025 15:21:33 Bipolar disorder 49152997 F31.9 Alcoholism 2356807 F10.2 0 Type 2 cris betes mellitus 07641409 E11.9 9521378460 [id number] Demarcus Poole [facility]) [address] [place] [address] 5 04/25/2025 14:59:22 04/30/2025 13:26:30 Alcoholic cirrhosis 497935698 K70.30 [id number] Rectal hemorrhage 880705 02 K62.5 [id number] Demarcus Poole [facility] ([facility]) [address] [place] [address] 05/09/2025 08:05:50 05/14/2025 08:18:06 Post-discharge follow-up 720764175 Z09 558462 Pyogenic a rthritis of shoulder region 56027287 M00.9 799799863 Alcoholism 8675612 F10.2 0 67161 [id number] Demarcus Poole [facility] ([facility]) [address] [place] [address] 05/20/2025 10:20:47 05/21/2025 15:02:01 Bipolar disorder 33991731 F31.9 Alcoholism 6104963 F10.2 0 Chronic insomnia 2696498 04 F51.04 784998 [id number] Demarcus Poole [facility] ([facility]) [address] [place] [address] 05/30/2025 11:44:41 06/12/2025 08:34:31 Cystitis 82805080 N30.90 09801 [id number] Demarcus Poole DO [facility] ([facility]) [address] [place] [address] 06/19/2025 10:55:31 06/24/2025 15:39:41 Chronic insomnia 942210257 F51.04 125290 [id number] Demarcus Poole [facility] ([facility]) [address] [place] [address] 07/01/2025 14:37:55 07/02/2025 09:00:56 Bipolar disorder 76542520 F31.9 Alcoholism 4923749 F10.2 0 Chronic insomnia 6846487 04 F51.04 001099 Chronic low back pain 27 6354570 M54.50 G89.29 78869876 [id number] Demarcus Poole DO [facility]) [address] [place] [address] 07/11/2025 16:12:57 07/15/2025 13:45:25 Bipolar disorder 98858651 F31.9 Chronic insomnia 8251883 04 F51.04 715477 [id number] Demarcus Poole [facility] ([facility]) [address] [place] [address] 07/18/2025 12:01:40 07/23/2025 10:28:18 Post-discharge follow-up 288720024 Z09 388219 Upper gastrointestinal bleeding 69344341 K92.2 021972 Bipolar disorder 3049488 4 F31.9 Alcoholism 9007775 F10.2 0 Chronic insomnia 5285557 04 F51.04 173457 [id number] Demarcus Poole [facility] ([facility]) [address] [place] [address] 07/22/2025 12:25:20 07/24/2025 08:10:49 Alcoholism 6283749 F10.20 Chronic insomnia 8071178 04 F51.04 541203 Bipolar disorder 4431239 4 F31.9 [id number] Demarcus Poole [facility] ([facility]) [address] [place], [place] [address] 08/08/2025 13:24:51 08/13/2025 16:03:20 Post-discharge follow-up 424886883 Z09 364661 Ureteric stone 68950154 N20.1 9690046 Sepsis 68965305 A41.9 R65.20 040452 [id number] Demarcus Poole DO [facility] ([facility]) [address] [place] [address] 08/19/2025 13:42:33 08/21/2025 08:46:20 Bipolar disorder 16437231 F31.9 Alcoholism 6646420 F10.2 0 Chronic insomnia 6570146 04 F51.04 466474 Post-disch arge follow-up 691683263 Z09 961093 Health Concerns Section Related Observation LastModified by Organization Detai ls LastModified Time None Recorded Concern Status LastModified by Organization Details LastModified Time None Recorded Advance Directives Directive None Recorded Payers Insurance Date Sequence Insurance Name Policy Number Policy Mcguire Covered Member ID Mcguire Member ID Guarantor Name 08/19/2025 [facility] (MEDICARE REPLACEMENT/A DVANTAGE - PPO) [id number] Bernardino Wilkins Counts [id number] Bernardino Wilkins Counts Notes Date Note Type Note Provider Name and Address Organization Details Recorded Time 07/11/2025 text/html InsomniaReported by PatientHPIFor quality, patient reportsdifficulty initiating sleepanddifficulty maintaining sleep. For severity, patient reportssevere. For duration, patient reportschronic. For alleviating factors, patient reportsprescription medication.ROS as noted in the HPI c/o increased leg pain, wants to discuss getting increased gabapentin. Demarcus Poole DO [address] [place] [address], [phone], [facility] 07/14/2025 13:28:43 07/18/2025 text/html InsomniaReported by PatientHPIFor quality, patient reportsdifficulty initiating sleepanddifficulty maintaining sleep. For severity, patient reportssevere. For duration, patient reportschronic. For alleviating factors, patient reportsprescription medication.ROS as noted in the HPI Re-admit to SNF after hospital stay. Demarcus Poole DO [address] [place] [address], [phone], [facility] 07/22/2025 12:17:24 07/22/2025 text/html InsomniaReported by PatientHPIFor quality, patient reportsdifficulty initiating sleepanddifficulty maintaining sleep. For severity, patient reportssevere. For duration, patient reportschronic. For alleviating factors, patient reportsprescription medication.ROS as noted in the HPI frequently sleeping during the day. Demarcus Poole DO [address] [place] [address], [phone], [facility] 07/22/2025 14:26:45 08/08/2025 text/html InsomniaReported by PatientHPIFor quality, patient reportsdifficulty initiating sleepanddifficulty maintaining sleep. For severity, patient reportssevere. For duration, patient reportschronic. For alleviating factors, patient reportsprescription medication.ROS as noted in the HPI re-admit hospital follow-up Demarcus Poole DO [address] [place] [address], [phone], [facility] 08/13/2025 16:02:40 08/19/2025 text/html InsomniaReported by PatientHPIFor quality, patient reportsdifficulty initiating sleepanddifficulty maintaining sleep. For severity, patient reportssevere. For duration, patient reportschronic. For alleviating factors, patient reportsprescription medication.ROS as noted in the HPI re-admit Demarcus Poole DO [address] [place] [address], [phone], [facility] 08/19/2025 15:41:50
--- OUTSIDE RECORDS SUMMARY | 2025-09-19 22:59 | XMS_ITS | Encounter Summary ---
Author Organization [facility] Address [address] [place] [address] Care Team Providers Care Auto Repair Technician Name Role Phone Sanam Sosa DO Primary Care Provider [phone] Encounter Details Date Type Department Care Team (Latest Contact Info) Description 04/09/2002 Outpatient 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 Gender Identity Not on file Sexual Orientation Not on file documented as of this encounter Plan of Treatment Not on file documented as of this encounter Visit Diagnoses Diagnosis Contact dermatitis and other eczema, due to unspecified cause- Primary documented in this encounter Additional Health Concerns Infection Onset Date Last Indicated Resolved Time MRSA Comment:Boogie 10/23/16 RESOLVED 10/25/2016 10/25/2016 10/24/20 17 3:59 PM SUPERVISOR 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
--- OUTSIDE RECORDS SUMMARY | 2025-09-19 22:59 | XMS_ITS | Encounter Summary ---
Author Organization [facility] Address [address] [place] [address] Care Team Providers Care Consultants Intern Name Role Phone Sanam Sosa DO Primary Care Provider [phone] Reason for Referral * Outpatient Services (Routine) - Closed Specialty Diagnoses / Procedures Referred By Wes david Referred To Contact Diagnoses Thoracic or lumbosacral neuritis or radiculitis, unspecified Procedures XR FLUORO NEEDLE GUIDANCE Poncho Ferrer MD NO ADDRESS ON FILE Referral ID Status Reason Start Date Expiration Date Visits Re quested Visits Authorized [id number] Closed 05/15/2013 06/15/2014 1 1 Encounter Details Date Type Department Care Team (Late st Contact Info) Description 05/15/2013 Ancillary Orders [facility] Pain Management Procedures [place] [address] [place] [phone] Poncho Ferrer MD NO ADDRESS ON FILE [...] on file 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
--- OUTSIDE RECORDS SUMMARY | 2025-09-19 22:59 | XMS_ITS | Encounter Summary ---
Author Organization [facility] Address [address] [place] [address] Care Team Providers Care Grease And Tallow Pumper Name Role Phone Sanam Sosa DO Primary Care Provider Encounter Details Date Type Department Care Team (Latest Contact Info) Description 03/24/2005 Outpatient Historical [facility] Family Medicine- [place] [address] [place] [address] oJhnny Awan MD [address] [place] [address] [address] DE[address] BURN ARM NOS (Primary Dx) Social History Tobacco Use Types Packs/Day Years Used Date Smoking Tobacco: Never Assessed Sex and Gender Information Value Date Recorded Sex Assigned at Not on file 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
[2025-09-19 23:08] LABS: Hematocrit 31.2 % (37-53); Hemoglobin 9.10 g/dL (11.27-16.99); Mean Corpuscular HGB Conc 29.2 g/dL (30-55); Mean Corpuscular Hemoglobin 22.7 pg (27-33); Mean Corpuscular Volume 77.8 fl (82-101); Nucleated Red Blood Cells % 0 %; Platelet Count 94 10^3/cmm (157-399); Red Blood Count 4.01 10^6/uL (3.85-5.65); White Blood Count 10.77 10^3/uL (3.29-11.43)
--- NOTE | 2025-09-19 23:15 | W.ED.FEVER ---
Documented by User: AMEYA Alegre 09/20/25 15:21 HPI - Fever General: Chief Complaint: Fever Stated Complaint: fever Time Seen by Provider: 09/19/25 22:51 History of Present Illness: Patient is a 65-year-old gentleman with MDR UTI/VRE diagnosed 08/2025, requiring hospitalization/lactic acidosis, metabolic encephalopathy that presents to the ED with fever, chills, dysuria. Denies any confusion at this time. Unknown amount of fever at home. 101.7 ?F here. Patient in general states he just feels rotten. This has been x 1 day. States compliance to previous treatment for his VRE UTI. Denies any retention however admits to dysuria. He admits to sweating, subjective fever. Associated symptoms: Reports chills and dysuria; Deny abdominal pain, flank pain, chest pain, extremity pain, headache(s), nausea or vomiting Related Data Home Medications ?Medication ?Instructions ?Recorded ?Confirmed metformin 1,000 mg tablet 1,000 mg PO BID 11/18/19 08/20/25 acetaminophen 325 mg tablet 650 mg PO Q6H PRN Pain/increased 04/26/25 08/20/25 (Tylenol) temp hydrocodone 5 mg-acetaminophen 325 1 tab PO Q8H PRN Pain 05/28/25 08/20/25 mg tablet eszopiclone 1 mg tablet (Lunesta) 1 mg PO BEDTIME 07/15/25 08/20/25 levothyroxine 25 mcg tablet 25 mcg PO DAILY 08/15/25 08/20/25 omeprazole 20 mg capsule,delayed 20 mg PO BID 08/15/25 08/20/25 release potassium chloride 20 mEq oral 20 meq PO BID 08/15/25 08/20/25 packet simvastatin 40 mg tablet 40 mg PO BEDTIME 08/15/25 08/20/25 aluminum-mag hydroxide-simethicone 10 ml PO QID PRN Indigestion 08/20/25 08/20/25 200 mg-200 mg-20 mg/5 mL oral susp Previous Rx's ?Medication ?Instructions ?Recorded sucralfate 1 gram tablet 1 g PO AC&BEDTIME #60 tabs 07/16/25 lactulose 10 gram/15 mL oral 30 ml PO Q8H 30 days #2,700 mL 08/22/25 solution Allergies Allergy/AdvReac Type Severity Reaction Status Date / Time No Known Allergies Allergy Verified 07/28/25 20:26 Review of Systems Const: Reports: fever(s), chills, body aches, fatigue and malaise Card: Denies: chest pain or palpitations Resp: Denies: dyspnea GI: Denies: abdominal pain, nausea or vomiting : Reports: difficulty urinating and dysuria; Denies: flank pain Musc: Reports: back pain; Denies: neck pain or extremity pain Skin/Breast: Denies: rash or pruritus Neuro: Denies: headache(s) or numbness in extremities Psych: Denies: anxiety or depression PFSH ED PFSH: Medical History (Updated 09/20/25 @ 01:13 by AMEYA Alegre) History of colon polyps Prostate cancer Liver cirrhosis Insomnia Type 2 diabetes mellitus Hypothyroidism Surgical History H/O prostatectomy History of esophagogastroduodenoscopy Family History Mother Diabetes mellitus, type 2 Social History Smoking and tobacco/nicotine status: never used tobacco/nicotine Alcohol intake: former Substance/Drug Use: unknown Physical Exam Const: COMMON NORMALS: alert EXAM LIMITATIONS: altered mental status ORIENTATION/CONSCIOUSNESS: Yes oriented to person; not oriented to place and not oriented to time HENMT: COMMON NORMALS: normocephalic and atraumatic HEAD & SCALP: normocephalic and atraumatic Eye: COMMON NORMALS: Equal, round and reactive pupils present and EOMs intact bilaterally PUPIL: Yes Equal, round and reactive pupils present Neck/C-Spine: COMMON NORMALS: full ROM and supple Chest: COMMONS NORMALS: normal inspection of the chest and normal palpation of entire chest wall Resp: COMMON NORMALS: normal respiratory effort, No retractions, No use of accessory muscles and clear to auscultation bilaterally AUSCULTATION: clear to auscultation bilaterally Cardio: COMMON NORMALS: regular rate, regular rhythm and No murmurs present (Cardio) RATE: regular rate RHYTHM: regular rhythm GI: COMMON NORMALS: Normal to inspection, nondistended, normoactive bowel sounds present, Soft to palpation, non-tender and no masses PALPATION: Yes Soft to palpation Extremity: COMMON NORMALS: normal to inspection and full ROM Neuro: COMMON NORMALS: moves all extremities and no focal motor deficits SENSORIUM/ORIENTATION: Yes alert, Yes oriented to person, No oriented to place and No oriented to time CRANIAL NERVES: Yes CN normal except as noted SPEECH: speech normal Psych: COMMON NORMALS: mental status grossly normal, Normal thought process present and cooperative THOUGHT PROCESS: Normal thought process present Skin: COMMON NORMALS: no rashes or lesions noted and no wounds GENERAL SKIN EXAM: no rashes or lesions noted Course Consultations: Consultation #1: Discussed with Dr. Bejarano, he had previous stent, with concern of this being infected, hydronephrosis, or lost to follow-up with [facility], recommended CT abdomen and pelvis and if hydro send emergency. Vital Signs: Vital signs: Vital Signs Temperature 98.4 F 09/20/25 03:57 Pulse Rate 101 H 09/20/25 05:04 Respiratory Rate 19 H 09/20/25 02:54 Blood Pressure 100/57 09/20/25 05:04 Pulse Oximetry 96 09/20/25 05:04 Oxygen Delivery Me thod Room Air 09/20/25 01:53 MDM - Fever Medical Decision Making Patient is a 65-year-old male with MDR/VRE UTI with inpatient treatment 08/2025, patient states compliance. He reports back to the ED with just overall feeling rotten, fever, chills, malaise, and dysuria. Denies urinary retention. His lactic acid is still pending, however I do suspect this will be elevated. He has got tachycardia, and ongoing elevation of fever at 101.7. Neutrophilia is present supporting sepsis, however he does not have elevation of WBC. Hemoglobin is approximately what it was previously at 9.1. Platelets are slightly low at 94, however they were also in the 90s in August. His COVID, flu, RSV are negative. He does not have any transaminitis at this time. Creatinine is somewhat elevated at 1 with previous at 0.5, as well concerning for or supporting sepsis. Potassium is low at 3.2, and has been replaced with 40 mEq. Patient has component of metabolic acidosis with his CO2 of 17. Medical Records I reviewed the patient's medical records. Lab Data I reviewed the patient's lab results. 09/19/25 22:32 09/19/25 22:32 Radiology Impressions Chest X-Ray 09/19/25 22:57 IMPRESSION: No acute findings. Abdomen/Pelvis CT 09/20/25 01:13 IMPRESSION: 1. Right nephroureteral stent terminates in the urinary bladder. Mild hydronephrosis of the right kidney. 2. Mild fecal retention, correlate for constipation. 3. Grade 2 anterolisthesis of L5 on S1 measures 1.5 cm. Bilateral pars defects of L5. Laboratory Results WBC 10.77 10^3/uL (3.29-11.43) 09/19/25 22:32 RBC 4.01 10^6/uL (3.85-5.65) 09/19/25 22:32 Hgb 9.10 g/dL (11.27-16.99) L 09/19/25 22:32 Hct 31.2 % (37-53) L 09/19/25 22:32 MCV 77.8 fl (82-101) L 09/19/25 22:32 MCH 22.7 pg (27-33) L 09/19/25 22:32 MCHC 29.2 g/dL (30-55) L 09/19/25 22:32 RDW 20.0 % (12.1-15.1) H 09/19/25 22:32 Plt Count 94 10^3/cmm (157-399) L 09/19/25 22:32 MPV 9.3 fL (7.4-10.4) 09/19/25 22:32 Neut % (Auto) 80.6 % 09/19/25 22:32 Lymph % (Auto) 10.0 % 09/19/25 22:32 [place] % (Auto) 8.4 % 09/19/25 22:32 Eos % (Auto) 0.2 % 09/19/25 22: Baso % (Auto) 0.3 % 09/19/25 22:32 Neut # (Auto) 8.69 10^3/uL (1.8-7.7) H 09/19/25 22:32 Lymph # (Auto) 1.1 10^3/uL (0.8-4.8) 09/19/25 22:32 [place] # (Auto) 0.9 10^3/uL (0.2-0.9) 09/19/25 22:32 Eos # (Auto) 0.0 10^3/uL (0.0-0.8) 09/19/25 22: Baso # (Auto) 0.0 10^3/uL (0.0-0.1) 09/19/25 22:32 Nucleated RBC % (auto) 0 % 09/19/25 22: Nucleated RBCs # 0.0 /100WBC 09/19/25 22:32 Sodium 143 mmol/L (136-145) 09/19/25 22:32 Potassium 3.2 mmol/L (3.5-5.1) L 09/19/25 22:32 Chloride 109 mmol/L (98-107) H 09/19/25 22:32 Carbon Dioxide 17 mmol/L (22-29) L 09/19/25 22:32 Anion Gap 20.2 (5-19) H 09/19/25 22:32 BUN 9 mg/dL (8-23) 09/19/25 22: Creatinine 1.0 mg/dL (0.7-1.2) 09/19/25 22:32 GFR Calculation 74.5 mL/min (90-130) L 09/19/25 22:32 Glucose 132 mg/dL (65-115) H 09/19/25 22:32 Calculated Osmolality 297 mOsm/kg (285-295) H 09/19/25 22:32 Lactic Acid 6.3 mmol/L (0.5-2.2) H* 09/19/25 01:20 Lactic Acid (Sepsis) 6.8 mmol/L (0.5-2.2) H* 09/20/25 04:25 Calcium 8.8 mg/dL (8.5-10.5) 09/19/25 22:32 Total Bilirubin 1.0 mg/dL (0.15-1.2) 09/19/25 22:32 AST 15 U/L (0-40) 09/19/25 22: ALT 7 U/L (0-41) 09/19/25 22:32 Alkaline Phosphatase 82 U/L (40-130) 09/19/25 22:32 C-Reactive Protein 23.2 mg/L (0.0-4.9) H 09/19/25 22:32 Total Protein 7.1 g/dL (6.6-8.7) 09/19/25 22:32 Albumin 3.1 g/dL (3.5-5.2) L 09/19/25 22:32 Globulin 4.0 g/dL (1.3-4.6) 09/19/25 22:32 Urine Color [place] (Yellow) A 09/20/25 00:45 Urine Appearance Cloudy (CLEAR) A 09/20/25 00:45 Urine pH 6.0 (5-7) 09/20/25 00:45 Ur Specific [place] 1.015 (1.005-1.030) 09/20/25 00:45 Urine Protein 2+ (Negative) A 09/20/25 00:45 Urine Glucose (UA) Negative (Normal) 09/20/25 00:45 Urine Ketones Negative (Negative) 09/20/25 00:45 Urine Blood 3+ (Negative) A 09/20/25 00:45 Urine Nitrate Negative (Negative) 09/20/25 00:45 Urine Bilirubin Negative (Negative) 09/20/25 00:45 Urine Urobilinogen 1.0 mg/dL (Negative) 09/20/25 00:45 Ur Leukocyte Esterase 3+ (Negative) A 09/20/25 00:45 Urine RBC >100 /hpf (0-2) H 09/20/25 00:45 Urine WBC 55-80 /hpf (0-5) H 09/20/25 00:45 Ur Squamous Epith Cells 0-5 /hpf (0-5) 09/20/25 00:45 Amorphous Sediment Not Reportable 09/20/25 00:45 Urine Bacteria None seen /hpf (NONE) 09/20/25 00:45 Hyaline Casts 1.65 /lpf 09/20/25 00:45 Urine Yeast Trace /hpf 09/20/25 00:45 Influenza A (PCR) Negative (Negative) 09/19/25 23:05 Influenza Type B (PCR) Negative (Negative) 09/19/25 23:05 RSV (PCR) Negative (Negative) 09/19/25 23:05 SARS-CoV-2 (PCR) Negative (Negative) 09/19/25 23:05 All radiology interpretation(s) finalized by discharge Discharge Plan Discharge Patient Disposition: Xfer Short-Term Hosp Clinical Impression: Acute UTI, Metabolic acidosis Sepsis Qualifiers: Sepsis type: sepsis due to unspecified organism Sepsis acute organ dysfunction status: with acute organ dysfunction Severe sepsis acute organ dysfunction type: unspecified Severe sepsis shock status: without septic shock Qualified Code(s): A41.9 - Sepsis, unspecified organism Condition: Stable Referrals: Demarcus Poole DO [Primary Care Provider, Internal Medicine] Print Language: Venezuelan Coding Level of Care Code ED Atm Servicer for Chg Fwd Documented by User: Nuria Gonzales MD 09/20/25 03:42 HPI - Fever General: Chief Complaint: Fever Stated Complaint: fever Time Seen by Provider: 09/19/25 22:51 Related Data Home Medications ?Medication ?Instructions ?Recorded ?Confirmed metformin 1,000 mg tablet 1,000 mg PO BID 11/18/19 08/20/25 acetaminophen 325 mg tablet 650 mg PO Q6H PRN Pain/increased 04/26/25 08/20/25 (Tylenol) temp hydrocodone 5 mg-acetaminophen 325 1 tab PO Q8H PRN Pain 05/28/25 08/20/25 mg tablet eszopiclone 1 mg tablet (Lunesta) 1 mg PO BEDTIME 07/15/25 08/20/25 levothyroxine 25 mcg tablet 25 mcg PO DAILY 08/15/25 08/20/25 omeprazole 20 mg capsule,delayed 20 mg PO BID 08/15/25 08/20/25 release potassium chloride 20 mEq oral 20 meq PO BID 08/15/25 08/20/25 packet simvastatin 40 mg tablet 40 mg PO BEDTIME 08/15/25 08/20/25 aluminum-mag hydroxide-simethicone 10 ml PO QID PRN Indigestion 08/20/25 08/20/25 200 mg-200 mg-20 mg/5 mL oral susp Previous Rx's ?Medication ?Instructions ?Recorded sucralfate 1 gram tablet 1 g PO AC&BEDTIME #60 tabs 07/16/25 lactulose 10 gram/15 mL oral 30 ml PO Q8H 30 days #2,700 mL 08/22/25 solution Allergies Allergy/AdvReac Type Severity Reaction Status Date / Time No Known Allergies Allergy Verified 07/28/25 20:26 [facility] ED [facility]: Medical History (Updated 09/20/25 @ 01:13 by AMEYA Alegre) History of colon polyps Prostate cancer Liver cirrhosis Insomnia Type 2 diabetes mellitus Hypothyroidism Surgical History H/O prostatectomy History of esophagogastroduodenoscopy Family History Mother Diabetes mellitus, type 2 Social History Smoking and tobacco/nicotine status: never used tobacco/nicotine Alcohol intake: former Substance/Drug Use: unknown Course Vital Signs: Vital signs: Vital Signs Temperature 98.4 F 09/20/25 03:57 Pulse Rate 101 H 09/20/25 05:04 Respiratory Rate 19 H 09/20/25 02:54 Blood Pressure 100/57 09/20/25 05:04 Pulse Oximetry 96 09/20/25 05:04 Oxygen Delivery Me thod Room Air 09/20/25 01:53 MDM - Fever Medical Decision Making Patient is a 65-year-old male with MDR/VRE UTI with inpatient treatment 08/2025, patient states compliance. He reports back to the ED with just overall feeling rotten, fever, chills, malaise, and dysuria. Denies urinary retention. His lactic acid is still pending, however I do suspect this will be elevated. He has got tachycardia, and ongoing elevation of fever at 101.7. Neutrophilia is present supporting sepsis, however he does not have elevation of WBC. Hemoglobin is approximately what it was previously at 9.1. Platelets are slightly low at 94, however they were also in the 90s in August. His COVID, flu, RSV are negative. He does not have any transaminitis at this time. Creatinine is somewhat elevated at 1 with previous at 0.5, as well concerning for or supporting sepsis. Potassium is low at 3.2, and has been replaced with 40 mEq. Patient has component of metabolic acidosis with his CO2 of 17. ATTENDING PHYSICIAN ATTESTATION: I, Nuria Gonzales MD, have provided a substantive portion of the care for this patient. I have personally evaluated this patient, performed an independent history, physical exam, reviewed labwork, imaging, and agree with the plan of care as hereby documented by JOSÉ MIGUEL. MDM: Patient is a 65-year-old male with past medical history of cirrhosis with portal venous hypertension, right ureteral stent which was removed/replaced 2 days ago in [place], type 2 diabetes, chronic anemia presents with a chief complaint of feeling unwell since yesterday. He does not think he had a fever at home and denies chest pain, shortness of breath or cough. He denies abdominal pain, nausea or vomiting. Patient states that it has not been particularly painful to urinate and he denies urinary frequency or hematuria. He does tell me that he had a procedure to remove his ureteral stent 2 days ago. Patient has not fallen or injured himself. EXAM: Vitals were reviewed. On exam patient is alert, oriented. Patient is normotensive but is quite tachycardic, tachypneic and febrile which is concerning for sepsis. Based on recent procedure, suspect urosepsis, based on previous culture, patient was treated with Zosyn and IV fluids. Patient has a normal white blood cell count but CRP is elevated.. Patient is anemic and has thrombocytopenia which I suspect is secondary to known cirrhosis of the liver. Patient has mild hypokalemia, potassium was replaced orally. Patient continues to have adequate kidney function. Will obtain CT abd/pelvis to r/o hydronephrosis/obstructive uropathy. CT shows: IMPRESSION: 1. Right nephroureteral stent terminates in the urinary bladder. Mild hydronephrosis of the right kidney. 2. Mild fecal retention, correlate for constipation. 3. Grade 2 anterolisthesis of L5 on S1 measures 1.5 cm. Bilateral pars defects of L5. Discussed findings w/Dr. Amato who declined admission on basis of concern that this patient may have an infected nephroureteral stent and may need urology. Patient's urologist is at [facility]. Patient accepted ED to ED by Dr. Fields. Lab Data 09/19/25 22:32 09/19/25 22:32 Radiology Impressions Chest X-Ray 09/19/25 22:57 IMPRESSION: No acute findings. Abdomen/Pelvis CT 09/20/25 01:13 IMPRESSION: 1. Right nephroureteral stent terminates in the urinary bladder. Mild hydronephrosis of the right kidney. 2. Mild fecal retention, correlate for constipation. 3. Grade 2 anterolisthesis of L5 on S1 measures 1.5 cm. Bilateral pars defects of L5. Laboratory Results WBC 10.77 10^3/uL (3.29-11.43) 09/19/25 22:32 RBC 4.01 10^6/uL (3.85-5.65) 09/19/25 22:32 Hgb 9.10 g/dL (11.27-16.99) L 09/19/25 22:32 Hct 31.2 % (37-53) L 09/19/25 22:32 MCV 77.8 fl (82-101) L 09/19/25 22:32 MCH 22.7 pg (27-33) L 09/19/25 22: MCHC 29.2 g/dL (30-55) L 09/19/25 22:32 RDW 20.0 % (12.1-15.1) H 09/19/25 22:32 Plt Count 94 10^3/cmm (157-399) L 09/19/25 22:32 MPV 9.3 fL (7.4-10.4) 09/19/25 22:32 Neut % (Auto) 80.6 % 09/19/25 22:32 Lymph % (Auto) 10.0 % 09/19/25 22:32 [place] % (Auto) 8.4 % 09/19/25 22:32 Eos % (Auto) 0.2 % 09/19/25 22:32 Baso % (Auto) 0.3 % 09/19/25 22:32 Neut # (Auto) 8.69 10^3/uL (1.8-7.7) H 09/19/25 22:32 Lymph # (Auto) 1.1 10^3/uL (0.8-4.8) 09/19/25 22:32 [place] # (Auto) 0.9 10^3/uL (0.2-0.9) 09/19/25 22:32 Eos # (Auto) 0.0 10^3/uL (0.0-0.8) 09/19/25 22:32 Baso # (Auto) 0.0 10^3/uL (0.0-0.1) 09/19/25 22:32 Nucleated RBC % (auto) 0 % 09/19/25 22: Nucleated RBCs # 0.0 /100WBC 09/19/25 22:32 Sodium 143 mmol/L (136-145) 09/19/25 22:32 Potassium 3.2 mmol/L (3.5-5.1) L 09/19/25 22:32 Chloride 109 mmol/L (98-107) H 09/19/25 22:32 Carbon Dioxide 17 mmol/L (22-29) L 09/19/25 22:32 Anion Gap 20.2 (5-19) H 09/19/25 22:32 BUN 9 mg/dL (8-23) 09/19/25 22:32 Creatinine 1.0 mg/dL (0.7-1.2) 09/19/25 22:32 GFR Calculation 74.5 mL/min (90-130) L 09/19/25 22:32 Glucose 132 mg/dL (65-115) H 09/19/25 22:32 Calculated Osmolality 297 mOsm/kg (285-295) H 09/19/25 22:32 Lactic Acid 6.3 mmol/L (0.5-2.2) H* 09/19/25 01:20 Lactic Acid (Sepsis) 6.8 mmol/L (0.5-2.2) H* 09/20/25 04:25 Calcium 8.8 mg/dL (8.5-10.5) 09/19/25 22:32 Total Bilirubin 1.0 mg/dL (0.15-1.2) 09/19/25 22:32 AST 15 U/L (0-40) 09/19/25 22:32 ALT 7 U/L (0-41) 09/19/25 22:32 Alkaline Phosphatase 82 U/L (40-130) 09/19/25 22:32 C-Reactive Protein 23.2 mg/L (0.0-4.9) H 09/19/25 22:32 Total Protein 7.1 g/dL (6.6-8.7) 09/19/25 22:32 Albumin 3.1 g/dL (3.5-5.2) L 09/19/25 22:32 Globulin 4.0 g/dL (1.3-4.6) 09/19/25 22:32 Urine Color [place] (Yellow) A 09/20/25 00:45 Urine Appearance Cloudy (CLEAR) A 09/20/25 00:45 Urine pH 6.0 (5-7) 09/20/25 00:45 Ur Specific [place] 1.015 (1.005-1.030) 09/20/25 00:45 Urine Protein 2+ (Negative) A 09/20/25 00:45 Urine Glucose (UA) Negative (Normal) 09/20/25 00:45 Urine Ketones Negative (Negative) 09/20/25 00:45 Urine Blood 3+ (Negative) A 09/20/25 00:45 Urine Nitrate Negative (Negative) 09/20/25 00:45 Urine Bilirubin Negative (Negative) 09/20/25 00:45 Urine Urobilinogen 1.0 mg/dL (Negative) 09/20/25 00:45 Ur Leukocyte Esterase 3+ (Negative) A 09/20/25 00:45 Urine RBC >100 /hpf (0-2) H 09/20/25 00:45 Urine WBC 55-80 /hpf (0-5) H 09/20/25 00:45 Ur Squamous Epith Cells 0-5 /hpf (0-5) 09/20/25 00:45 Amorphous Sediment Not Reportable 09/20/25 00:45 Urine Bacteria None seen /hpf (NONE) 09/20/25 00:45 Hyaline Casts 1.65 /lpf 09/20/25 00:45 Urine Yeast Trace /hpf 09/20/25 00:45 Influenza A (PCR) Negative (Negative) 09/19/25 23:05 Influenza Type B (PCR) Negative (Negative) 09/19/25 23:05 RSV (PCR) Negative (Negative) 09/19/25 23:05 SARS-CoV-2 (PCR) Negative (Negative) 09/19/25 23:05 Discharge Plan Discharge Patient Disposition: Xfer Short-Term Hosp Clinical Impression: Acute UTI, Metabolic acidosis Sepsis Qualifiers: Sepsis type: sepsis due to unspecified organism Sepsis acute organ dysfunction status: with acute organ dysfunction Severe sepsis acute organ dysfunction type: unspecified Severe sepsis shock status: without septic shock Qualified Code(s): A41.9 - Sepsis, unspecified organism Condition: Stable Referrals: Demarcus Poole DO [Primary Care Provider, Internal Medicine] Print Language: [place]an Coding Level of Care Code ED Atm Servicer for Lamin Pink
[2025-09-19 23:22] LABS: Alanine Aminotransferase 7 U/L (0-41); Albumin Level 3.1 g/dL (3.5-5.2); Alkaline Phosphatase 82 U/L (40-130); Anion Gap 20.2 (5-19); Aspartate Amino Transferase 15 U/L (0-40); Blood Urea Nitrogen 9 mg/dL (8-23); Calcium 8.8 mg/dL (8.5-10.5); Carbon Dioxide 17 mmol/L (22-29); Chloride 109 mmol/L (98-107); Globulin 4.0 g/dL (1.3-4.6); Glucose 132 mg/dL (65-115); Osmolality Calculated 297 mOsm/kg (285-295); Potassium 3.2 mmol/L (3.5-5.1); Sodium 143 mmol/L (136-145); Total Protein 7.1 g/dL (6.6-8.7)
[2025-09-19 23:31] VITALS: BP 128/70; PULSE 133; RESP 20; O2SAT 98
[2025-09-19 23:48] LABS: Respiratory Syncytial Virus Ce NEGATIVE (Negative); SARS-CoV-2 PCR NEGATIVE (Negative)
[2025-09-20] VITALS (11 sets, daily range): BP systolic 94–136; BP diastolic 49–85; PULSE 82–130; RESP 16–24; TEMP 36.9; O2SAT 93–99
[2025-09-20 00:57] LABS: Glucose Urine UA Negative (Normal); Nitrate Urine Negative (Negative); Specific Gravity, Urine 1.015 (1.005-1.030)
[2025-09-20 01:02] LABS: Add Urine Microscopic? YES
[2025-09-20] MEDS: acetaminophen 1,000 MG/100 ML PIGGYBACK 400 MG IV (01:10)
--- NOTE | 2025-09-20 01:13 | CTR_ITS ---
PROCEDURE INFORMATION: Exam: CT Abdomen And Pelvis Without Contrast Exam date and time: 09/20/2025 1:34 AM Age: 65 years old Clinical indication: Abdominal pain; Prior surgery; Surgery date: <1 month; Surgery type: Stent placement; Additional info: Sepsis, previous stent, R/O hydro TECHNIQUE: Imaging protocol: Computed tomography of the abdomen and pelvis without contrast. Radiation optimization: All CT scans at this facility use at least one of these dose optimization techniques: automated exposure control; mA and/or kV adjustment per patient size (includes targeted exams where dose is matched to clinical indication); or iterative reconstruction. COMPARISON: CT kidney stone [id number] 08/20/2025 1:19 PM RADIATION DOSE METRICS: Total DLP (mGy-cm): 704.83 FINDINGS: Liver: Normal. No mass. Gallbladder and biliary ducts: Cholelithiasis. Pancreas: Normal. No ductal dilation. Spleen: Normal. No splenomegaly. Adrenal glands: Normal. No mass. Kidneys and ureters: Right nephroureteral stent terminates in the urinary bladder. Mild hydronephrosis of the right kidney. Stomach and bowel: Mild fecal retention, correlate for constipation. Appendix: No evidence of appendicitis. Intraperitoneal space: Unremarkable. No free air. No significant fluid collection. Vasculature: Unremarkable. No abdominal aortic aneurysm. Lymph nodes: Unremarkable. No enlarged lymph nodes. Urinary bladder: Unremarkable as visualized. Reproductive: Unremarkable as visualized. Bones/joints: Grade 2 anterolisthesis of L5 on S1 measures 1.5 cm. Bilateral pars defects of L5. Soft tissues: Unremarkable. CT/CT abdomen pelvis wo con [id number] IMPRESSION: 1. Right nephroureteral stent terminates in the urinary bladder. Mild hydronephrosis of the right kidney. 2. Mild fecal retention, correlate for constipation. 3. Grade 2 anterolisthesis of L5 on S1 measures 1.5 cm. Bilateral pars defects of L5.
[2025-09-20 01:28] LABS: UA Slide Review UA Slide Review Perf
[2025-09-20] MEDS: piperacillin-tazobactam 4.5 GM in sodium chloride 0.9% (plus) 50 ML IV (01:44)
[2025-09-20 01:58] LABS: Lactic Sepsis W/Reflex 6.3 mmol/L (0.5-2.2)
[2025-09-20 02:46] LABS: Reflex Lactate Order REFLEX LACTIC ORDERD
--- NOTE | 2025-09-20 04:07 | PC.NURSE ---
Report called to Nona Shipman RN.
[2025-09-20 04:51] LABS: Lactic Acid level (Lactate) 6.8 mmol/L (0.5-2.2)
--- NOTE | 2025-09-21 08:03 | DCPLANNER ---
Faxed blood culture preliminary results to [facility] [phone]
== END 2025-09-20 05:01 | disposition short-term general hospital (02) ==
PROVIDERS: Physician Assistant; Emergency Provider Emergency Medicine; PCP Internal Medicine
DX: N39.0 Urinary tract infection, site not specified (principal); E87.20 Acidosis, unspecified; A41.9 Sepsis, unspecified organism; R65.20 Severe sepsis without septic shock; E11.9 Type 2 diabetes mellitus without complications; Z85.46 Personal history of malignant neoplasm of prostate; Z11.52 Encounter for screening for COVID-19
CPT/HCPCS: 36415; 71045; 74176; 80053; 81001; 83605; 85025; 86140; 87040; 87077; 87086; 87150; 87186; 87205; 87637; 96365; 96375; 99285; J0131; J2543; J7050; J7120; J9999

== ENCOUNTER 2025-10-14 19:14 | Emergency (ER) | payer MEDICARE, SELFPAY ==
[2025-10-14] VITALS (7 sets, daily range): BP systolic 100–116; BP diastolic 47–75; PULSE 80–89; RESP 16–18; TEMP 36.4; O2SAT 95–100; BMI 25.3
--- NOTE | 2025-10-14 19:27 | CTR_ITS ---
PROCEDURE INFORMATION: Exam: CT Head Without Contrast Exam date and time: 10/14/2025 8:02 PM Age: 65 years old Clinical indication: Altered mental status/memory loss; Additional info: AMS TECHNIQUE: Imaging protocol: Computed tomography of the head without contrast. Total images: 303 Radiation optimization: All CT scans at this facility use at least one of these dose optimization techniques: automated exposure control; mA and/or kV adjustment per patient size (includes targeted exams where dose is matched to clinical indication); or iterative reconstruction. COMPARISON: 1. CT head wo con* [id number] 08/20/2025 11:[address] head thrombolytic [id number] 08/15/2025 10:59 AM RADIATION DOSE METRICS: Total DLP (mGy-cm): 1277.92 FINDINGS: Brain: Brain parenchyma moderate generalized involutional (atrophic) changes. Deep white matter mild-moderate low attenuation, a nonspecific finding most frequently accounted for by chronic microangiopathic changes in a patient of this age, which can be interpreted based on clinical context. No specific abnormal density within the brain parenchyma. No mass-effect or edema, or pathologic shift of midline structures. No acute intracranial hemorrhage. Satisfactory lama-white matter differentiation. Normal anatomy of the posterior fossa, cerebellum, mingo and medulla allowing for the degree of cerebral parenchymal volume loss. Hyperdensity in the right globus pallidus/putamen, likely physiologic, proteinaceous, and/or calcific in nature. No associated volume loss, edema, or mass effect. Cerebral ventricles: CSF spaces demonstrate moderate generalized enlargement of the ventricles, cisterns and other subarachnoid spaces commensurate with patient's age. Paranasal sinuses: Visualized paranasal sinuses are clear. Mastoid air cells: Visualized mastoid air cells and tympanic cavities are clear. Orbital cavities: Globes are normal in size, shape, and contour. Extraocular muscles, optic nerves, and orbital fat are unremarkable. No orbital mass, hemorrhage, or proptosis. Bones: No intrinsic osseous abnormality identified. Soft tissues: No localized pathologic scalp posttraumatic soft tissue swelling or subcutaneous emphysema. No manifestations of laceration, subcutaneous emphysema or unexpected retained soft tissue radiopaque foreign body. Vasculature: Satisfactory major vessel density and caliber characteristic of flowing intravascular blood. Right carotid siphon mild atheromatous calcific plaque. Left carotid siphon mild atheromatous calcific plaque. CT/CT head wo con* [id number] IMPRESSION: 1. No acute intracranial abnormalities or adverse interval change identified. Specifically no CT evidence of mass, hemorrhage, or acute infarction. 2. Age-expected moderate cerebral atrophy with chronic small vessel ischemic changes.
--- NOTE | 2025-10-14 19:27 | XRR_ITS ---
PROCEDURE INFORMATION: Exam: XR Chest Exam date and time: 10/14/2025 7:28 PM Age: 65 years old Clinical indication: Other: AMS TECHNIQUE: Imaging protocol: Radiologic exam of the chest. Views: 1 view. Total images: 4 COMPARISON: 1. CR (CHEST, ) 09/19/2025 11:11 PM 2. CR XR chest 1V portable [id number] 08/20/2025 12:[address] abdomen pelvis wo con [id number] 09/20/2025 1:[address] kidney stone [id number] 08/20/2025 1:19 PM FINDINGS: Limitations: Low lung volumes. Lungs: Suboptimal lung expansion accounts for elevation of the diaphragms, central bronchovascular crowding, mild generalized increase in pulmonary parenchymal density. Reticular interstitial thickening, likely chronic, without focal alveolar consolidation. No lung consolidation, mass, or acute pulmonary abnormality identified. Pleural spaces: No pathologic pleural thickening, significant pleural effusion or pneumothorax. Heart/Mediastinum: Normal heart size. Vasculature: Aorta moderate atherosclerotic calcification. Bones/joints: Stable old proximal humeral healed post fracture deformity. Mild generalized degenerative changes of the vertebral column characterized primarily by multilevel osteophyte formation, and degenerative facet arthrosis commensurate with patient's age. Shoulder glenohumeral mild osteoarthritis. No intrinsic osseous abnormality identified. Qualitative demineralization of bones (osteopenia) limiting evaluation for nondisplaced fractures. Soft tissues: Soft tissues are normal as visualized, demonstrating no masses or swelling/induration. Other findings: Lordotic patient projection. XR/XR chest 1V portable [id number] IMPRESSION: 1. No new acute cardiopulmonary disease or adverse interval change radiographically. 2. Reticular interstitial thickening, likely chronic, without focal alveolar consolidation. Nonspecific; most consistent with chronic fibrotic interstitial change, age-related/nonspecific. Recommend correlation with clinical history; pulmonary function tests if clinically indicated. 3. Expiratory chest x-ray findings as described above. 4. Mild skeletal degenerative; and other chronic/non-acute findings as described above. COMMENTS: Qualitative demineralization of bones (osteopenia) limiting evaluation for nondisplaced fractures.
--- NOTE | 2025-10-14 19:40 | W.ED.AMS ---
HPI - Altered Mental Status General: Chief Complaint: Altered Mental Status Stated Complaint: ams Time Seen by Provider: 10/14/25 19:24 History of Present Illness: 65-year-old man with a history of UTI, ureteral stent placement in July 2025, cirrhosis, type 2 diabetes and anemia who presents [facility] the [facility] with altered mental status. EMS states that when [facility] told him that he has been more somnolent but also more aggressive. On my exam he will grunt but really will not answer much in the way of questions. Related Data Home Medications ?Medication ?Instructions ?Recorded ?Confirmed metformin 1,000 mg tablet 1,000 mg PO BID 11/18/19 08/20/25 acetaminophen 325 mg tablet 650 mg PO Q6H PRN Pain/increased 04/26/25 08/20/25 (Tylenol) temp hydrocodone 5 mg-acetaminophen 325 1 tab PO Q8H PRN Pain 05/28/25 08/20/25 mg tablet eszopiclone 1 mg tablet (Lunesta) 1 mg PO BEDTIME 07/15/25 08/20/25 levothyroxine 25 mcg tablet 25 mcg PO DAILY 08/15/25 08/20/25 omeprazole 20 mg capsule,delayed 20 mg PO BID 08/15/25 08/20/25 release potassium chloride 20 mEq oral 20 meq PO BID 08/15/25 08/20/25 packet simvastatin 40 mg tablet 40 mg PO BEDTIME 08/15/25 08/20/25 aluminum-mag hydroxide-simethicone 10 ml PO QID PRN Indigestion 08/20/25 08/20/25 200 mg-200 mg-20 mg/5 mL oral susp Previous Rx's ?Medication ?Instructions ?Recorded sucralfate 1 gram tablet 1 g PO AC&BEDTIME #60 tabs 07/16/25 lactulose 10 gram/15 mL oral 30 ml PO Q8H 30 days #2,700 mL 08/22/25 solution Allergies Allergy/AdvReac Type Severity Reaction Status Date / Time No Known Allergies Allergy Verified 07/28/25 20:26 Review of Systems General: Reports: ROS unobtainable due to medical condition and ROS unobtainable due to mental status [facility] PFSH: Medical History (Updated 10/15/25 @ 00:25 by Chelle Santillan MD) Alcoholism in remission History of colon polyps Prostate cancer Liver cirrhosis Insomnia Type 2 diabetes mellitus Hypothyroidism Surgical History H/O prostatectomy History of esophagogastroduodenoscopy Family History Mother Diabetes mellitus, type 2 Social History Smoking and tobacco/nicotine status: never used tobacco/nicotine Alcohol intake: former Substance/Drug Use: unknown Physical Exam Narrative: General: Somnolent but arousable. Will not answer questions. Skin: Warm, dry. Head: Normocephalic, atraumatic. Neck: Supple, trachea midline. Eye: Extraocular movements are intact. Ears, nose, mouth and throat: Tacky oral mucosa Cardiovascular: Regular, Normal peripheral perfusion. Respiratory: Lungs are clear to auscultation, respirations are non-labored, breath sounds are equal, Symmetrical chest wall expansion. Gastrointestinal: Soft, Nontender, Non distended Musculoskeletal: Normal ROM, no deformity. Neurological: Somnolent. Arousable. Will grunt at some questions but will not answer anything. No focal motor deficits.. Psychiatric: Unable to assess Course Vital Signs: Vital signs: Vital Signs Temperature 97.5 F L 10/14/25 19:14 Pulse Rate 75 10/15/25 00:00 Respiratory Rate 16 10/15/25 00:00 Blood Pressure 102/54 10/15/25 00:00 Pulse Oximetry 98 10/15/25 00:00 Oxygen Delivery Me thod Room Air 10/14/25 22:00 MDM - Altered Mental Status Medical Decision Making Medical decision making Patient's reason for coming to the emergency room: Altered mental status Social determinants: [facility] is a [facility] patient. Apparently the son has had him placed his he is a chronic alcoholic and was medically noncompliant I reviewed the patient's medical record. 65-year-old man with a history of UTI, ureteral stent placement in July 2025, cirrhosis, type 2 diabetes and anemi. Patient was seen in the emergency room and transferred to an outside hospital on September 19. This was for sepsis. He was admitted to the hospital in mid August with hepatic encephalopathy. And a urinary tract infection. I reviewed the patient's current home meds Patient is on lactulose at home. It appears maybe he has been refusing it Alternate historians: EMS. I also ended up speaking with the transfer center who discussed recent hospitalization documentation. Differential diagnosis including but not limited to and based on the above HPI, review of systems and physical exam: In this patient with altered mental status: Stroke. Hypoglycemia. Metabolic encephalopathy. Infections such as pneumonia, urinary tract infection, Covid-19, Influenza. Electrolyte abnormalities such as hypernatremia. Renal failure / uremia. Hepatic encephalopathy. Hypoxemia. Hypercapnic respiratory failure. Psychosis. Drug or alcohol intoxication. Medication overdose. Orders placed to evaluate differential diagnosis based on the above differential, HPI and physical exam Lab Review: Laboratory results were reviewed and interpreted by myself the emergency room physician. No leukocytosis. No anemia. No renal failure. Urinalysis does show signs of infection. Drug screen is negative. Ammonia is very elevated at 186. Chest x-ray: No acute process. No infiltrate. No pneumothorax. This was reviewed and interpreted by myself the emergency room physician. I also reviewed the radiology report. CT head: No acute intracranial process. No intracranial hemorrhage, no evidence of infarct. No evidence of acute fracture. This was reviewed and interpreted by myself the emergency room physician. I also reviewed the radiology report. CT of the abdomen pelvis without contrast: Right double-J ureteral stent in satisfactory position. No hydronephrosis. Other findings as below. This was reviewed and interpreted by myself the emergency room physician. I also reviewed the radiology report. Assessment of risk: Level of risk: High risk patient. Multiple comorbidities. Hospitalization considerations: I spoke with the hospitalist and they have evaluated the patient and are putting in orders for hold. Consultation: I spoke with Dr. Ramírez who is seeing the patient. He request that we talk with urology at [facility]. I was unable to speak with him but I did get some information. Consultation: I spoke with the transfer center. Patient was admitted after being transferred from here with sepsis. He had fever and signs of sepsis at the time. They had changed out the stent and done lithotripsy. With possible infectious etiology with the stent would need to talk to urology. However they are on divert for urology tonight but will have urology at 7 AM tomorrow morning. Given that he has been followed there in the past I think it is best just to wait until the morning as we likely would need to get transport tonight. Reexamination: Patient remained stable. No increased work of breathing. No change in his mentation. Patient likely needs transfer. I will discuss the patient with the oncoming physician in the morning who can contact [facility] for possible transfer. Assessment and plan: Hepatic encephalopathy History of VRE Enterococcus in urine recently Urinary stent placed Dehydration ?P.o. lactulose was ordered. ?Patient does not seem septic like he did previous. He does have a mild lactic elevation. And he does have signs of infection in his urine but this can be chronic from having his stent. - 1 L normal saline bolus. Limited fluids as the patient is a cirrhotic. -Broad-spectrum antibiotics were administered. -Sepsis quality measures. -Lactic acid with a reflex was ordered. -Blood cultures were ordered. ?I reevaluated the patient's volume status after sepsis fluids were given. - All laboratory values were reviewed and interpreted personally by myself, the ER physician - All imaging was reviewed and interpreted personally by myself, the ER physician. - Evaluation and treatment of this problem were appropriate in the emergency setting Critical Care: -I spent a total of 68 minutes of critical care time managing the patient, independent of any other practitioner. -The time involved in the performance of separately reportable procedures was not counted towards critical care time. Lab Data 10/14/25 19:52 10/14/25 19:52 Radiology Impressions Chest X-Ray 10/14/25 19:27 IMPRESSION: 1. No new acute cardiopulmonary disease or adverse interval change radiographically. 2. Reticular interstitial thickening, likely chronic, without focal alveolar consolidation. Nonspecific; most consistent with chronic fibrotic interstitial change, age-related/nonspecific. Recommend correlation with clinical history; pulmonary function tests if clinically indicated. 3. Expiratory chest x-ray findings as described above. 4. Mild skeletal degenerative; and other chronic/non-acute findings as described above. COMMENTS: Qualitative demineralization of bones (osteopenia) limiting evaluation for nondisplaced fractures. Head CT 10/14/25 19:27 IMPRESSION: 1. No acute intracranial abnormalities or adverse interval change identified. Specifically no CT evidence of mass, hemorrhage, or acute infarction. 2. Age-expected moderate cerebral atrophy with chronic small vessel ischemic changes. Abdomen/Pelvis CT 10/14/25 21:08 IMPRESSION: 1. No adverse interval change 2. Right double-J ureteral stent in satisfactory position. No hydronephrosis. 3. Gallbladder faintly radiodense gallstones/sludge (gravel). 4. Liver slightly scalloped contour, query cirrhosis of unknown etiology. 5. Portal hypertension likely accounts for perisplenic varices and splenorenal shunting. 6. L5-S1 grade 2 isthmic spondylolisthesis due to L5 pars interarticularis defects. 7. Advanced age-appropriate degenerative spinal changes, with other chronic/non-acute findings as described above. COMMENTS: On any planned follow-up imaging, consider administration of intravenous contrast to evaluate portosystemic shunting and oral contrast for improved bowel assessment if clinically warranted. Laboratory Results WBC 6.38 10^3/uL (3.29-11.43) 10/14/25 19:52 Corrected WBC Cancelled 10/14/25 18:58 RBC 4.34 10^6/uL (3.85-5.65) 10/14/25 19:52 Hgb 10.60 g/dL (11.27-16.99) L 10/14/25 19:52 Hct 35.8 % (37-53) L 10/14/25 19:52 MCV 82.5 fl (82-101) 10/14/25 19:52 MCH 24.4 pg (27-33) L 10/14/25 19:52 MCHC 29.6 g/dL (30-55) L 10/14/25 19:52 RDW 24.9 % (12.1-15.1) H 10/14/25 19:52 Plt Count 171 10^3/cmm (157-399) 10/14/25 19:52 MPV 9.5 fL (7.4-10.4) 10/14/25 19:52 Gran % Cancelled 10/14/25 18:58 Neut % (Auto) 59.3 % 10/14/25 19:52 Lymph % (Auto) 26.0 % 10/14/25 19:52 Rankin % (Auto) 9.4 % 10/14/25 19:52 Eos % (Auto) 3.9 % 10/14/25 19:52 Baso % (Auto) 0.9 % 10/14/25 19:52 Neut # (Auto) 3.78 10^3/uL (1.8-7.7) 10/14/25 19:52 Lymph # (Auto) 1.7 10^3/uL (0.8-4.8) 10/14/25 19:52 Rankin # (Auto) 0.6 10^3/uL (0.2-0.9) 10/14/25 19:52 Eos # (Auto) 0.3 10^3/uL (0.0-0.8) 10/14/25 19:52 Baso # (Auto) 0.1 10^3/uL (0.0-0.1) 10/14/25 19:52 Absolute Gran (auto) Cancelled 10/14/25 18:58 Nucleated RBC % (auto) 0 % 10/14/25 19:52 Nucleated RBCs # 0.0 /100WBC 10/14/25 19:52 Sodium 138 mmol/L (136-145) 10/14/25 19:52 Potassium 3.8 mmol/L (3.5-5.1) 10/14/25 19:52 Chloride 107 mmol/L (98-107) 10/14/25 19:52 Carbon Dioxide 19 mmol/L (22-29) L 10/14/25 19:52 Anion Gap 15.8 (5-19) 10/14/25 19:52 BUN 9 mg/dL (8-23) 10/14/25 19:52 Creatinine 0.6 mg/dL (0.7-1.2) L 10/14/25 19:52 GFR Calculation 134.4 mL/min (90-130) H 10/14/25 19:52 Glucose 102 mg/dL (65-115) 10/14/25 19:52 Calculated Osmolality 285 mOsm/kg (285-295) 10/14/25 19:52 Lactic Acid 2.3 mmol/L (0.5-2.2) H 10/14/25 19:52 Lactic Acid (Sepsis) 2.6 mmol/L (0.5-2.2) H 10/14/25 22:40 Calcium 8.4 mg/dL (8.5-10.5) L 10/14/25 19:52 Total Bilirubin 1.4 mg/dL (0.15-1.2) H 10/14/25 19:52 AST 17 U/L (0-40) 10/14/25 19:52 ALT 6 U/L (0-41) 10/14/25 19:52 Alkaline Phosphatase 95 U/L (40-130) 10/14/25 19:52 Ammonia 186 umol/L (16-60) H 10/14/25 19:52 C-Reactive Protein 19.0 mg/L (0.0-4.9) H 10/14/25 19:52 Total Protein 7.6 g/dL (6.6-8.7) 10/14/25 19:52 Albumin 2.6 g/dL (3.5-5.2) L 10/14/25 19:52 Globulin 5.0 g/dL (1.3-4.6) H 10/14/25 19:52 Procalcitonin 0.07 ng/mL (0-0.5) 10/14/25 19:52 TSH 1.32 uIU/mL (0.27-4.20) 10/14/25 19:52 Urine Color Yellow (Yellow) 10/14/25 21:38 Urine Appearance Turbid (CLEAR) A 10/14/25 21:38 Urine pH 8.0 (5-7) A 10/14/25 21:38 Ur Specific [place] 1.012 (1.005-1.030) 10/14/25 21:38 Urine Protein Trace (Negative) A 10/14/25: Urine Glucose (UA) Negative (Normal) 10/14/25 21:38 Urine Ketones Negative (Negative) 10/14/25 21:38 Urine Blood 3+ (Negative) A 10/14/25 21: Urine Nitrate Negative (Negative) 10/14/25 21:38 Urine Bilirubin Negative (Negative) 10/14/25 21:38 Urine Urobilinogen 2.0 mg/dL (Negative) H 10/14/25 21:38 Ur Leukocyte Esterase 3+ (Negative) A 10/14/25 21: Urine RBC 11-20 /hpf (0-2) H 10/14/25 21:38 Urine WBC >100 /hpf (0-5) H 10/14/25 21:38 Ur Squamous Epith Cells 0-5 /hpf (0-5) 10/14/25 21: Amorphous Sediment Not Reportable 10/14/25 21:38 Urine Bacteria 2+ /hpf (NONE) H 10/14/25 21:38 Hyaline Casts 6.17 /lpf 10/14/25 21:38 Salicylates < 0.3 mg/dL (3-10) L 10/14/25 19:52 Urine Opiates Screen Positive ng/mL (Negative) H 10/14/25 21:38 Acetaminophen < 5.0 ug/mL (10-30) L 10/14/25 19:52 Ur Barbiturates Screen Negative ng/mL (Negative) 10/14/25 21:38 Ur Phencyclidine Scrn Negative ng/mL (Negative) 10/14/25 21:38 Ur Amphetamines Screen Negative ng/mL (Negative) 10/14/25 21:38 U Benzodiazepines Scrn Negative ng/mL (Negative) 10/14/25 21:38 Urine Cocaine Screen Negative ng/mL (Negative) 10/14/25 21:38 U Marijuana (THC) Screen Negative ng/mL (Negative) 10/14/25 21:38 Ethyl Alcohol < 10 mg/dL (0-10) 10/14/25 19:52 All radiology interpretation(s) finalized by discharge Discharge Plan Discharge Patient Disposition: Xfer Short-Term Hosp Clinical Impression: Hepatic encephalopathy, Dehydration, Urinary tract infection, History of infection with vancomycin-resistant Enterococcus, Ureteral stent present Condition: Stable Referrals: Demarcus Poole DO [Primary Care Provider, Internal Medicine] Patient Instructions: Altered Mental Status (ED) Print Language: French Coding Level of Care Code ED [employer] Vessels Inspector for Lamin Pink
[2025-10-14 20:09] LABS: Hematocrit 35.8 % (37-53); Hemoglobin 10.60 g/dL (11.27-16.99); Mean Corpuscular HGB Conc 29.6 g/dL (30-55); Mean Corpuscular Hemoglobin 24.4 pg (27-33); Mean Corpuscular Volume 82.5 fl (82-101); Nucleated Red Blood Cells % 0 %; Platelet Count 171 10^3/cmm (157-399); Red Blood Count 4.34 10^6/uL (3.85-5.65); White Blood Count 6.38 10^3/uL (3.29-11.43)
[2025-10-14 20:40] LABS: Ammonia 186 umol/L (16-60); Lactic Sepsis W/Reflex 2.3 mmol/L (0.5-2.2)
[2025-10-14 20:48] LABS: Procalcitonin 0.07 ng/mL (0-0.5)
[2025-10-14 20:49] LABS: Alanine Aminotransferase 6 U/L (0-41); Albumin Level 2.6 g/dL (3.5-5.2); Alkaline Phosphatase 95 U/L (40-130); Anion Gap 15.8 (5-19); Aspartate Amino Transferase 17 U/L (0-40); Blood Urea Nitrogen 9 mg/dL (8-23); Calcium 8.4 mg/dL (8.5-10.5); Carbon Dioxide 19 mmol/L (22-29); Chloride 107 mmol/L (98-107); Globulin 5.0 g/dL (1.3-4.6); Glucose 102 mg/dL (65-115); Osmolality Calculated 285 mOsm/kg (285-295); Potassium 3.8 mmol/L (3.5-5.1); Sodium 138 mmol/L (136-145); Thyroid Stimulating Hormone 1.32 uIU/mL (0.27-4.20); Total Protein 7.6 g/dL (6.6-8.7)
[2025-10-14 20:51] LABS: Acetaminophen < 5.0 ug/mL (10-30); Alcohol Level < 10 mg/dL (0-10); Salicylate < 0.3 mg/dL (3-10)
--- NOTE | 2025-10-14 21:08 | CTR_ITS ---
PROCEDURE INFORMATION: Exam: CT Abdomen And Pelvis Without Contrast Exam date and time: 10/14/2025 9:55 PM Age: 65 years old Clinical indication: Other: History of ureteral stent, sepsis TECHNIQUE: Imaging protocol: Computed tomography of the abdomen and pelvis without contrast. Total images: 220 Radiation optimization: All CT scans at this facility use at least one of these dose optimization techniques: automated exposure control; mA and/or kV adjustment per patient size (includes targeted exams where dose is matched to clinical indication); or iterative reconstruction. COMPARISON: 1. CT abdomen pelvis wo con [id number] 09/20/2025 1:[address] kidney stone [id number] 08/20/2025 1:19 PM RADIATION DOSE METRICS: Total DLP (mGy-cm): 893.12 FINDINGS: Lungs: Right lung base dependent atelectasis. Insofar as lung bases are included within the field of view, no acute pathologic pulmonary process appreciated. Liver: Liver slightly scalloped contour, query cirrhosis of unknown etiology. Gallbladder and biliary ducts: Gallbladder faintly radiodense sludge and multiple small hyperdense calculi (gravel), without wall thickening or pericholecystic inflammation. Pancreas: Pancreatic generalized parenchymal thinning of chronic atrophy. Spleen: Spleen of normal-size and contour demonstrating perisplenic portosystemic varices and splenorenal shunting. Adrenal glands: Adrenal glands are normal. Kidneys and ureters: Right ureteral double-J stent in satisfactory position coiled within nondilated right renal pelvis and within the urinary bladder. Kidneys are otherwise normal. Stomach and bowel: No pathologic bowel distension or bowel wall thickening. Moderate burden of colonic stool without distension. Appendix: Appendix is not confidently visualized; however, no regional inflammatory changes are seen in the expected location of the appendix. Intraperitoneal space: No pathologic peritoneal fluid. No free peritoneal air. Vasculature: Perisplenic abdominal varices suggesting portosystemic shunting splenorenal shunting between spleen and left renal vein. Moderate scattered vascular calcifications. No major vessel critical narrowing, occlusion, or aneurysm. Lymph nodes: No lymphadenopathy. Urinary bladder: Bladder adequately distended. No abnormality identified. No evidence of obstructing urinary calculus or hydronephrosis. Reproductive: Prostate gland and seminal vesicles are normal. Bones/joints: Pubic symphysis severe degenerative changes (osteitis pubis). Mild degenerative changes of the sacroiliac joints. Stable lumbar degenerative levoconvex curvature. Stable L1 superior endplate compression fracture deformity accounting for approximately 25-30% loss of vertebral body height. Stable L4 deep Schmorl's node left of midline. Severe chronic generalized degenerative changes of the vertebral column, including multilevel osteophytes, degenerative disc height loss, vacuum disc phenomenon, and facet arthrosis, consistent with patient age. L5-S1 grade 2 isthmic spondylolisthesis. L5 pars interarticularis defects. Generalized mild bony proliferative enthesopathy of multiple tendon and ligament insertions suggesting chronic systemic process such as diffuse idiopathic skeletal hyperostosis (DISH). Soft tissues: Soft tissues are normal as visualized, demonstrating no masses or swelling/induration. CT/CT abdomen pelvis wo con [id number] IMPRESSION: 1. No adverse interval change 2. Right double-J ureteral stent in satisfactory position. No hydronephrosis. 3. Gallbladder faintly radiodense gallstones/sludge (gravel). 4. Liver slightly scalloped contour, query cirrhosis of unknown etiology. 5. Portal hypertension likely accounts for perisplenic varices and splenorenal shunting. 6. L5-S1 grade 2 isthmic spondylolisthesis due to L5 pars interarticularis defects. 7. Advanced age-appropriate degenerative spinal changes, with other chronic/non-acute findings as described above. COMMENTS: On any planned follow-up imaging, consider administration of intravenous contrast to evaluate portosystemic shunting and oral contrast for improved bowel assessment if clinically warranted.
[2025-10-14] MEDS: linezolid premix 600 MG/300 ML PREMIX 300 MG IV (21:27)
--- OUTSIDE RECORDS SUMMARY | 2025-10-14 21:41 | XMS_ITS | Clinical Summary ---
Author Organization [facility] Address [address] [place] [address] Care Team Providers Care School Occupational Therapist Name Role Phone Sanam Sosa Primary Care Provider Allergies Active Allergy Reactions Criticality Noted Date Comments Haloperidol Lactate Arrhythmia,Bradycard ia High 02/11/2014 Heart block and bradycardia after receiving Medications levothyroxine 25 mcg tablet Take 1 Tablet (25 mcg) by mouth daily senior auditor. 30 Tablet 5 8 Active pantoprazole (PROTONIX) [...] Years Used Date Smoking Tobacco: Former Cigarettes 0.5 Q uit: 06/10/2017 Smokeless Tobacco: Never Tobacco Cessation:Ready to Q uit: No; Counseling Given: Yes Alcohol Use Standard Drinks/Week Comments Yes 0 (1 standard drink = 0.6 oz pur e alcohol) gallon a week of vodka Sex and Gender Information Value Date Recorded Sex Assigned at Not on file Legal Sex Male 5:58 AM LIVESTOCK HAULIER Gender Identity Not on file Sexual Orientation Not on file Occupation Industry Job Start Date Job End Date Not on file Not on file Not on file Not on file Last Filed Vital Signs Vital Sign Reading Time Taken Comments Blood Pressure 136/82 11/13/2020 4:43 PM LIVESTOCK HAULIER Pulse 101 11/13/2020 4:43 PM LIVESTOCK HAULIER Temperature 36.6 C (97.8 F) 11/13/2020 4:43 PM LIVESTOCK HAULIER Respiratory Rate 18 11/13/2020 4:43 PM LIVESTOCK HAULIER Oxygen Saturation 94% 11/13/2020 4:43 PM LIVESTOCK HAULIER Inhaled Oxygen Concentration - - Weight 106.1 kg (234 lb) 11/13/2020 4:43 PM LIVESTOCK HAULIER Height 177.8 cm (5' 10 ) 11/13/2020 4:43 PM LIVESTOCK HAULIER Body Mass Index 33.58 11/13/2020 4:43 PM LIVESTOCK HAULIER Plan of Treatment Health Maintenance Due Date [...] complication, without long-term current use of insulin ([facility]) HEMOGLOBIN A1C Routine 03/02/2021 8:22 AM CDT Type 2 diabetes mellitus without complication, without long-term current use of insulin ([facility]) MICROALBUMIN/CREATIN INE RATIO, RANDOM UR Routine 08/02/2019 11:27 AM CDT from Last 3 Months or Most Recently Relevant to Health Maintenance Results * (ABNORMAL) HEMOGLOBIN A1C (03/02/2021 8:22 AM CDT) HEMOGLOBIN A1C 6.5(H) See Comment % 03/02/2021 9:11 PM CDT [facility] EST. AVG GLUCOSE, A1C 140 mg/dL 03/02/2021 9:11 PM CDT [facility] Blood Venipuncture / Unknown 03/02/2021 8:22 AM CDT 03/02/2021 8:46 PM CDT Narrative [facility] - 03/02/2021 9:11 PM CDT HGB A1C INTERPRETATION NORMAL: <5.7% PRE-DIABETES: 5.7 - 6.4% DIABETES: 6.5% OR GREATER Falsely low A1C measurements can occur when: 1. Anemia and/or hemolytic anemia is present. 2. Hemoglobin variants present. 3. Renal failure. 4. Transfusion of blood product in the last 120 days. We recommend ordering a fructosamine test([id number]) to more accurately assess glycemic status if any of the above conditions are present. us Sanam Sosa DO CHEMISTRY ORDERABLES Final Result [facility] CLIA# [id number] [address] [place] [address] * (ABNORMAL) LIPID PANEL (03/02/2021 8:22 AM CDT) CHOLESTEROL 176 <200 mg/dL 03/02/2021 9:33 PM CDT [facility] TRIGLYCERIDE 177(H) <150 mg/dL 03/02/2021 9:33 PM CDT [facility] HDL 48 40 - 59 mg/dL 03/02/2021 9:33 PM CDT [facility] LDL CALCULATED 93 <100 mg/dL 03/02/2021 9:33 PM CDT [facility] NON-HDL CHOLESTEROL 128 <130 mg/dL 03/02/2021 9:33 PM CDT [facility] Blood Venipuncture / Unknown 03/02/2021 8:22 AM CDT 03/02/2021 8:47 PM CDT Narrative [facility] - 03/02/2021 [...] Ranges for Lipid Panels (NCEP/AMA) . us Saanm Sosa DO CHEMISTRY ORDERABLES Final Result [facility] CLIA# [id number] [address] [place] [address] * MICROALBUMIN/CREATININE RATIO, RANDOM UR (08/02/2019 11:27 AM CDT) MICROALBUMIN, URINE <1.2 No Reference Range mg/dL 08/02/2019 8:03 PM CDT [facility] CREATININE, URINE 56.4 40.0 - 278.0 mg/dL 08/02/2019 8:03 PM CDT [facility] Comment:Reference Range vari es with fluid intake and diet. Urine URINE SPECIMEN OBTAINED BY CLEAN CATCH PROCEDURE / Unknown Collection / Unknown 08/02/2019 11:27 AM CDT 08/02/2019 7:25 PM CDT Narrative [facility] - 08/02/2019 8:03 PM CDT Condition Microalbumin/Creat ratio Normal Males <17 Normal Females <25 Microalbuminuria Males 17-299 Microalbuminuria Females 25-299 Overt proteinuria >=300 Unable to calculate urine microalbumin/creatinine ratio because urine microalbumin result is outside of reportable range. Snaam Sosa DO URINE ORDERABLES Final Resu lt [facility] IA# [id number] [place] [address] from Last 3 Months or Most Recently Relevant to Health Maintenance Insurance [facility] BCBS Advance Directives For more information, please contact: [phone] * Full Code (Latest Code Status on [...] 7:02 AM 08/27/2010 2:50 PM Care Teams School Occupational Therapist Relationship Specialty Start Date End Date Sanam Sosa DO [address] [place] [phone] PCP - General Family Practice 11/23/10
--- OUTSIDE RECORDS SUMMARY | 2025-10-14 21:42 | XMS_ITS | Data Portability ---
Author Organization [place] [facility] April Quintero [facility] Address [address] [place] [address] [place] [address] Assessment No assessment recorded. Plan of Treatment Reminders Order Date Submit Date Provider Last Modified By Organization Details Last Modified Time Details Appointments HALFWAY VISIT 2024 01:20P [facility], Not available Not available Not available Lab None recorded . Referral None recorded . Procedures None recorded . Surgeries None recorded . Imaging None recorded . Medication Orders None recorded . Patient TargetsNo targets recorded. Patient Instructions Encounter Date Encounter Id Patient Instructions Last Modified By Organization Details Last Modified Time 08/08/2025 [id number] minimal records and patient unsure of what he has been through; will request; [facility] notes show obstructive stone with stranding and need for urology so transferred to [facility], cmp,a1c on Tuesday. [email or web address] Not available 08/13/2025 16:02:15 08/19/2025 [id number] [facility] notes reviewed; improved quickly with lactulose discussed with nursing the need for taking lactulose regularly and goal of at least 3-4 bm's per day d/c iron and [email or web address] Not available 08/19/2025 15:41:45 09/19/2025 [id number] increased anger towards staff. Start risperdal 0.25 bid. [email or web address] Not available 09/19/2025 13:13:02 09/26/2025 [id number] Limited records, admitted with septic shock and tx for cystitis. Labs on Tuesday. [email or web address] Not available 09/26/2025 16:21:40 Reason for Referral None Reported. Problems Name Problem SNOMED Code Status Onset Date Resolution Date Notes Provider Name and Address Organization Details Recorded Time Chelsea caballero 7955566 Active 2019 chelsea caballero; 0 11:21AM by Pito Terrell, Office Visit; Promoted; acuity set as *; Not Available [facility] 3 03:07:35 Bipolar disorder 57850532 Active 2019 bipolar disorder mixed with psychotic features; 0 11:21AM by Pito Terrell, Office Visit; Promoted; acuity set as *; Not Available [facility] 3 03:07:37 Chronic insomnia 162468126 Active 2024 ОЛЬГА DUNAWAY [facility] 5 14:33:17 Post-disc harge follow-up 071171407 Active 2024 ОЛЬГА DUNAWAY [facility] 5 16:19:04 Septic shock 48599464 Active 2024 ОЛЬГАRICH DUNAWAY [facility] 5 16:19:05 Ureteric stent present 0670789005 Active 2024 ОЛЬГАRICH DUNAWAY [facility] 5 16:19:06 Acute cystitis 04033398 Active 2024 ОЛЬГАRICH DUNAWAY [facility] 5 16:19:07 Problem Notes None recorded. Medical Equipment None Reported. Allergies Allergen ID Allergen Name Allergen Category Reaction Reaction Severity Criticality Documentation Date Start Date Code Code System Note Provider Name and Address Organization Details Recorded Time 84479 haloperid ol lactate medicatio n bradycard ia Not available high 09/26/20252013 18939 3 RxNorm Heart block and jon cardi a after recei ving unrec ogniz ed react ion (text : Arrhy thmia , code: 16602 7007) (from [facility]ter [facility]) Not Available sullivan - External Data Service - prod 5 13:33:00 Medications Name Sig Start Date Stop Date [...] rate Respiratory rate Body temperature Oxygen saturation Systolic And Diastolic Provider Name and Address Organization Details Last Updated DateTime 5 98674.6 3 g 67 /min 20 /min 100.2 [degF] 98 % 120/60 mm[Hg] ОЛЬГА DUNAWAY [facility] 5 13:45:13 Date Recorded Body weight Heart rate Respiratory rate Body temperature Oxygen saturation Systolic And Diastolic Provider Name and Address Organization Details Last Updated DateTime 5 88886.0 7 g 87 /min 20 /min 97.5 [degF] 95 % 101/61 mm[Hg] [facility] 5 14:38:15 Date Recorded Body weight Heart rate Respiratory rate Body temperature Oxygen saturation Systolic And Diastolic Provider Name and Address Organization Details Last Updated DateTime 5 41277.2 6 g 90 /min 20 /min 98.7 [degF] 96 % 111/64 mm[Hg] [facility] 5 13:05:32 Date Recorded Body weight Heart rate Respiratory rate Body temperature Oxygen saturation Systolic And Diastolic Provider Name and Address Organization Details Last Updated DateTime 5 04300.2 6 g 91 /min 20 /min 98.2 [degF] 96 % 114/61 mm[Hg] [facility] 5 16:16:57 Social History None recorded. Functional Status None recorded. Mental Status None recorded. Family History Nothing Reported. Medical History No medical history recorded. Immunizations Vaccine Type Date Status Note Provider Nam e and Address Organization Details Recorded Time Tdap 7 completed Not Available [facility] 06/04/2023 02:43:58 zoster recombinant 8 completed Not Available [facility] 10/14/2025 14:16:14 zoster recombinant 9 completed Not Available [facility] 10/14/2025 14:16:14 Influenza, split virus, quadrivalent, PF 9 completed Not Available [facility] 10/14/2025 14:16:14 COVID-19, mRNA, LNP-S, PF, 100 mcg/0.5mL dose or 50 mcg/0.25mL dose 1 completed Not Available [facility] 10/14/2025 14:16:14 COVID-19, mRNA, LNP-S, PF, 100 mcg/0.5mL dose or 50 mcg/0.25mL dose 1 completed Not Available [facility] 10/14/2025 14:16:14 Influenza, split virus, quadrivalent, PF 2 completed Not Available [facility] 10/14/2025 14:16:14 Past Encounters Encounter ID Performer Location Encounter Start Date Encounter Closed Date Diagnosis/Indication Diagnosis SNOMED-CT Code Diagnosis ICD10 Code Diagnosis IMO Codes Diagnosis Note [id number] Demarcus Poole DO [facility] ([facility]) [address] [address] 03/18/2025 14:52:50 03/23/2025 07:29:49 Alcoholism 4177679 F10.20 Bipolar disorder 7461665 4 F31.9 Pain of ri ght shoulder region 5161236411 M25.511 [id number] [id number] Demarcus Poole DO [facility] ([facility]) [address] [place] [address] 5 03/20/2025 13:51:08 03/22/2025 14:20:18 Bipolar disorder 95467494 F31.9 Alcoholism 2722080 F10.2 0 Depressive disorder 3548 9007 F32.9 [id number] Demarcus Poole DO [facility] ([facility]) [address] [place] [address] 5 03/28/2025 08:29:08 03/29/2025 16:13:03 [id number] Demarcus Poole [facility] [address] [place] [address] 5 04/15/2025 10:32:40 04/23/2025 15:21:33 Bipolar disorder 21278952 F31.9 Alcoholism 0169005 F10.2 0 Type 2 cris betes mellitus 38107548 E11.9 [id number] Demarcus Poole [facility] [address] [place], [place] [address] 04/25/2025 14:59:22 04/30/2025 13:26:30 Alcoholic cirrhosis 780347549 K70.30 [id number] Rectal hemorrhage 792646 02 K62.5 272751 [id number] Demarcus Poole [facility] [address] [place], [place] [address] 05/09/2025 08:05:50 05/14/2025 08:18:06 Post-discharge follow-up 321258598 Z09 675183 Pyogenic a rthritis of shoulder region 42598359 M00.9 437751818 Alcoholism 0370122 F10.2 0 67939 [id number] Demarcus Poole [facility] ([facility]) [address] [place], [place] [address] 05/20/2025 10:20:47 05/21/2025 15:02:01 Bipolar disorder 25811390 F31.9 Alcoholism 1463959 F10.2 0 Chronic insomnia 7417495 04 F51.04 711246 [id number] Demarcus Poole [facility] ([facility]) [address] [place] [address] 5 05/30/2025 11:44:41 06/12/2025 08:34:31 Cystitis 24745557 N30.90 40241 [id number] Demarcus Poole [facility] [address] [place] [address] 5 06/19/2025 10:55:31 06/24/2025 15:39:41 Chronic insomnia 422993270 F51.04 600904 [id number] Demarcus Poole [facility] ([facility]) [address] [place] [address] 5 07/01/2025 14:37:55 07/02/2025 09:00:56 Bipolar disorder 67849486 F31.9 Alcoholism 3748379 F10.2 0 Chronic insomnia 5583598 04 F51.04 898770 Chronic low back pain 27 2523466 M54.50 G89.29 86551897 [id number] Demarcus Poole [facility] ([facility]) [address] [place], [place] [address] 07/11/2025 16:12:57 07/15/2025 13:45:25 Bipolar disorder 32747494 F31.9 Chronic insomnia 0637232 04 F51.04 978757 [id number] Demarcus Poole [facility] ([facility]) [address] [place], [place] [address] 07/18/2025 12:01:40 07/23/2025 10:28:18 Post-discharge follow-up 074392898 Z09 321188 Upper gastrointestinal bleeding 17097580 K92.2 560241 Bipolar disorder 0692670 4 F31.9 Alcoholism 1729137 F10.2 0 Chronic insomnia 8519748 04 F51.04 640897 [id number] Demarcus Poole [facility] [address] [place] [address] 5 07/22/2025 12:25:20 07/24/2025 08:10:49 Alcoholism 6772272 F10.20 Chronic insomnia 0626853 04 F51.04 666390 Bipolar disorder 6167888 4 F31.9 [id number] Demarcus Poole [facility] [address] [place] [address] 5 08/08/2025 13:24:51 08/13/2025 16:03:20 Post-discharge follow-up 023452603 Z09 509218 Ureteric stone 30189471 N20.1 5898461 Sepsis 95317118 A41.9 R65.20 [id number] Demarcus Poole [facility] [address] [place] [address] 5 08/19/2025 13:42:33 08/21/2025 08:46:20 Bipolar disorder 13677998 F31.9 Alcoholism 9730966 F10.2 0 Chronic insomnia 7288778 04 F51.04 565561 Post-disch arge follow-up 516467415 Z09 959267 [id number] Demarcus Poole [facility] [address] [place] [address] 5 09/19/2025 11:16:04 09/24/2025 08:58:28 Bipolar disorder 88706457 F31.9 Chronic insomnia 5029851 04 F51.04 753670 [id number] Demarcus Poole [facility] [address] [place] [address] 5 09/26/2025 13:32:18 09/30/2025 11:06:00 Post-discharge follow-up 336428965 Z09 275865 Septic shock 10876010 A4 1.9 R65.21 4102 Ureteric s tent present 5337530656 Z96.0 4334333061 Acute cystitis 84766389 N30.00 4545353 Health Concerns Section Related Observation LastModified by Organization Detai ls LastModified Time None Recorded Concern Status LastModified by Organization Details LastModified Time None Recorded Advance Directives Directive None Recorded Payers Insurance Date Sequence Insurance Name Policy Number Policy Mcguire Covered Member ID Mcguire Member ID Guarantor Name 10/14/[address] [facility] (MEDICARE REPLACEMENT/A DVANTAGE - PPO) [id number] Bernardino Wilkins Counts [id number] Bernardino Wilkins Counts Notes Date Note Type Note Provider Name and Address Organization Details Recorded Time 08/08/2025 text/html InsomniaReported by PatientHPIFor quality, patient reportsdifficulty initiating sleepanddifficulty maintaining sleep. For severity, patient reportssevere. For duration, patient reportschronic. For alleviating factors, patient reportsprescription medication.ROS as noted in the [facility] re-admit hospital follow-up Demarcus Poole DO [address] [place] [address], [phone], [facility] 08/13/2025 16:02:40 08/19/2025 text/html InsomniaReported by PatientIFor quality, patient reportsdifficulty initiating sleepanddifficulty maintaining sleep. For severity, patient reportssevere. For duration, patient reportschronic. For alleviating factors, patient reportsprescription medication.ROS as noted in the [facility] re-admit Demarcus Poole DO [address] [place] [address], [phone], [facility] 08/19/2025 15:41:50 09/19/2025 text/html InsomniaReported by PatientIFor quality, patient reportsdifficulty initiating sleepanddifficulty maintaining sleep. For severity, patient reportssevere. For duration, patient reportschronic. For alleviating factors, patient reportsprescription medication.ROS as noted in the [facility] staff reports increase anger towards staff. Demarcus Poole DO [address] [place] [address], [phone], [facility] 09/23/2025 15:21:01 09/26/2025 text/html InsomniaReported by PatientHPIFor quality, patient reportsdifficulty initiating sleepanddifficulty maintaining sleep. For severity, patient reportssevere. For duration, patient reportschronic. For alleviating factors, patient reportsprescription medication.ROS as noted in the H[facility] re-admit Demarcus Poole, DO [address] [place] [address], [phone], [facility] 09/29/2025 14:09:21
--- OUTSIDE RECORDS SUMMARY | 2025-10-14 21:42 | XMS_ITS | Encounter Summary ---
Author Organization [facility] Address [address] [place] [address] Care Team Providers Care Job Analyst Name Role Phone Sanam Sosa DO Primary Care Provider Encounter Details Date Type Department Care Team (Latest Contact Info) Description 11/05/2005 Outpatient Historical [facility] Family Medicine- [place] [address] [place] [address] Maximo Fox, EXPLORATION DRILLER [address], [place] [address] BRONCHITIS NOS (Primary Dx) Social History Tobacco Use Types Packs/Day Years Used Date Smoking Tobacco: Never Assessed Sex and Gender Information Value Date Recorded Sex Assigned at Not on file Legal 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 Male 5:58 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 Gender Identity Not on file Sexual Orientation Not on file documented as of this encounter Plan of Treatment Not on file documented as of this encounter Visit Diagnoses Diagnosis Bronchitis, not specified as acute or chronic- Primary documented in this encounter Additional Health Concerns Infection Onset Date Last Indicated Resolved Time MRSA Comment:Nares 10/23/16 RESOLVED 10/25/2016 10/25/2016 10/24/20 17 3:59 PM 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 documented as of this encounter Care Teams Job Analyst Relationship Specialty Start Date End Date Sanam Sosa DO [address] [place] [phone] PCP - General Family Practice 11/23/10 documented as of this encounter
--- OUTSIDE RECORDS SUMMARY | 2025-10-14 21:42 | XMS_ITS | Encounter Summary ---
Author Organization [facility] Address [address] [place] [address] Care Team Providers Care Pathology Lab Technician Name Role Phone Sanam Sosa DO Primary Care Provider Encounter Details Date Type Department Care Team (Latest Contact Info) Description 05/26/2006 Outpatient Historical [facility] Family Medicine- [place] [address] [place] [address] Rodrigue Grissom MD NO ADDRESS ON FILE Acute Sinusitis, Unspecified (Primary Dx); Acute Bronchitis Social History Tobacco Use Types Packs/Day Years Used Date Smoking Tobacco: Never Assessed Sex and Gender Information Value Date Recorded Sex Assigned at Not on file 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 Gender Identity Not on file Sexual Orientation Not on file documented as of this encounter Plan of Treatment Not on file documented as of this encounter Visit Diagnoses Diagnosis Acute sinusitis, unspecified- Primary Acute bronchitis documented in this encounter Additional Health Concerns Infection Onset Date Last Indicated Resolved Time MRSA Comment:Narama 10/23/16 RESOLVED 10/25/2016 10/25/2016 10/24/20 17 3:59 PM TOYS INSPECTOR documented as of this encounter Care Teams Pathology Lab Technician Relationship Specialty Start Date End Date Sanam Sosa DO [address] [facility] [place] [phone] PCP - General Family Practice 11/23/10 documented as of this encounter
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
--- OUTSIDE RECORDS SUMMARY | 2025-10-14 21:42 | XMS_ITS | Encounter Summary ---
Author Organization [facility] Address [address] [place] [address] Care Team Providers Care Due Diligence Coordinator Name Role Phone Sanam Sosa DO Primary Care Provider [phone] Reason for Referral * Outpatient Services (Routine) - Closed Specialty Diagnoses / Procedures Referred By Wes david Referred To Contact Diagnoses Thoracic or lumbosacral neuritis or radiculitis, unspecified Procedures XR FLUORO NEEDLE GUIDANCE Poncho Ferrer MD NO ADDRESS ON FILE Referral ID Status Reason Start Date Expiration Date Visits Re quested Visits Authorized [id number] Closed 05/15/2013 06/15/2014 1 1 Encounter Details Date Type Department Care Team (Late st Contact Info) Description 05/15/2013 Ancillary Orders [facility] Pain Management Procedures [place] [address] [place] [phone] Poncho Ferrer MD NO ADDRESS ON FILE [...] on file 

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
--- OUTSIDE RECORDS SUMMARY | 2025-10-14 21:42 | XMS_ITS | Continuity of Care Document ---
Author Organization [facility] April Quintero, [facility] ([facility]) Address [address] [facility] [place] [address] Assessment No assessment recorded. Plan of Treatment Reminders Order Date Submit Date Provider Last Modified By Organization Details Last Modified Time Details Appointments CUSTODIAL VISIT 2024 01:20P Casa Poole, DO Not available Not available Not available Lab None recorded . Referral None recorded . Procedures None recorded . Surgeries None recorded . Imaging None recorded . Medication Orders None recorded . Patient TargetsNo targets recorded. Patient Instructions Encounter Date Encounter Id Patient Instructions Last Modified By Organization Details Last Modified Time 09/26/2025 [id number] Limited records, admitted with septic shock and tx for cystitis. Labs on Tuesday. [email or web address] Not available 09/26/2025 16:21:40 Reason for Referral None Reported. Problems Name Problem SNOMED Code Status Onset Date Resolution Date Notes Provider Name and Address Organization Details Recorded Time Alcoholis m 8118207 Active 2019 alcoholis m; 0 11:21AM by Pito Terrell, Office Visit; Promoted; acuity set as *; Not Available [facility] 3 03:07:35 Bipolar disorder 57638075 Active 2019 bipolar disorder mixed with psychotic features; 0 11:21AM by Pito Terrell, Office Visit; Promoted; acuity set as *; Not Available [facility] 3 03:07:37 Chronic insomnia 432354319 Active 2024 ОЛЬГА sebastian [facility] 14:33:17 Post-disc harge follow-up 827635661 Active 2024 ОЛЬГА sebastian [facility] 16:19:04 Septic shock 76581873 [facility] 16:19:05 Ureteric stent present 2577480167 Active [facility] 16:19:06 Acute cystitis 87693476 Active [facility] 16:19:07 Problem Notes None recorded. Medical Equipment None Reported. Allergies Allergen ID Allergen Name Allergen Category Reaction Reaction Severity Criticality Documentation Date Start Date Code Code System Note Provider Name and Address Organization Details Recorded Time 38182 haloperid ol lactate medicatio n bradycard ia Not available high 09/26/20252013 78486 3 RxNorm Heart block and jon cardi a after recei ving unrec ogniz ed react ion (text : Soto smallsmia , code: 96731 7007) [facility] Not Available sebastian - External Data Service [...] Address Organization Details Last Updated DateTime 5 43423.2 6 g 91 /min 20 /min 98.2 [degF] 96 % 114/61 mm[Hg] ОЛЬГА DUNAWAY [facility], [facility] 5 16:16:57 Social History None recorded. Functional Status None recorded. Mental Status None recorded. Family History Nothing Reported. Medical History No medical history recorded. Immunizations Vaccine Type Date Status Note Provider Nam e and Address Organization Details Recorded Time Tdap 7 completed Not Available [facility] 06/04/2023 02:43:58 zoster recombinant 8 completed Not Available [facility] 10/14/2025 14:16:14 zoster recombinant 9 completed Not Available [facility] 10/14/2025 14:16:14 Influenza, split virus, quadrivalent, PF 9 completed Not Available [facility] 10/14/2025 14:16:14 COVID-19, mRNA, LNP-S, PF, 100 mcg/0.5mL dose or 50 mcg/0.25mL dose 1 completed Not Available [facility] 10/14/2025 14:16:14 COVID-19, mRNA, LNP-S, PF, 100 mcg/0.5mL dose or 50 mcg/0.25mL dose 02/26/202 1 completed Not Available [facility] 10/14/2025 14:16:14 Influenza, split virus, quadrivalent, PF 2 completed Not Available [facility] 10/14/2025 14:16:14 Past Encounters Encounter ID Performer Location Encounter Start Date Encounter Closed Date Diagnosis/Indication Diagnosis SNOMED-CT Code Diagnosis ICD10 Code Diagnosis IMO Codes Diagnosis Note [id number] Demarcus Poole DO [facility] ([facility]) [address] [place] [address] 09/19/2025 11:16:04 09/24/2025 08:58:28 Bipolar disorder 44939550 F31.9 Chronic insomnia 5573983 04 F51.04 970729 [id number] Demarcus Poole DO [facility]) [address] [place] [address] 09/26/2025 13:32:18 09/30/2025 11:06:00 Post-discharge follow-up 262091612 Z09 718147 Septic shock 84002821 A4 1.9 R65.21 4102 Ureteric s tent present 6917211270 Z96.0 2439643117 Acute cystitis 42139997 N30.00 5077193 Health Concerns Section Related Observation LastModified by Organization Detai ls LastModified Time None Recorded Concern Status LastModified by Organization Details LastModified Time None Recorded Payers Encounter Date Sequence Insurance Name Policy Number Policy Mcguire Covered Member ID Mcguire Member ID Guarantor Name 09/26/2025 1 [facility] (MEDICARE REPLACEMENT/A DVANTAGE - PPO) [id number] Bernardino Wilkins Counts [id number] Bernardino Wilkins Counts Notes Date Note Type Note Provider Name and Address Organization Details Recorded Time 09/26/2025 text/html InsomniaReported by PatientHPIFor quality, patient reportsdifficulty initiating sleepanddifficulty maintaining sleep. For severity, patient reportssevere. For duration, patient reportschronic. For alleviating factors, patient reportsprescription medication.ROS as noted in the HPI re-admit Demarcus Poole DO [address] [place] [address], [phone], [facility] Deniz [facility] 09/29/2025 14:09:21
--- OUTSIDE RECORDS SUMMARY | 2025-10-14 21:42 | XMS_ITS | Continuity of Care Document ---
Author Organization [facility] Ingrid, L.LGisel, [facility] ([facility] [place]) Address [address] [facility] [address] Assessment No assessment recorded. Plan of Treatment Reminders Order Date Submit Date Provider Last Modified By Organization Details Last Modified Time Details Appointments ASSISTED VISIT 2024 01:20P Casa Poole, Not available Not available Not available Lab None recorded . Referral None recorded . Procedures None recorded . Surgeries None recorded . Imaging None recorded . Medication Orders None recorded . Patient TargetsNo targets recorded. Patient Instructions Encounter Date Encounter Id Patient Instructions Last Modified By Organization Details Last Modified Time 08/19/2025 [id number] [facility] notes reviewed; improved quickly with lactulose discussed with nursing the need for taking lactulose regularly and goal of at least 3-4 bm's per day d/c iron and gabapentin [email or web address] Not available 08/19/2025 15:41:45 Reason for Referral None Reported. Problems Name Problem SNOMED Code Status Onset Date Resolution Date Notes Provider Name and Address Organization Details Recorded Time Alcoholis m 6673738 Active 2019 alcoholis m; 0 11:21AM by Pito Terrell, Office Visit; Promoted; acuity set as *; Not Available [facility] 3 03:07:35 Bipolar disorder 71711357 Active 2019 bipolar disorder mixed with psychotic features; 0 11:21AM by Pito Terrell, Office Visit; Promoted; acuity set as *; Not Available [facility] 3 03:07:37 Chronic insomnia 329003726 Active 2024 MOHAN Bird [facility], LMonieLGisel 5 14:33:17 Post-disc harge follow-up 509030599 Active [address] [facility] 16:19:04 Septic shock 40930522 [facility] 16:19:05 Ureteric stent present 3863760846 Active 2024 [facility] 5 16:19:06 Acute cystitis 84684687 Active 2024 [facility] 16:19:07 Problem Notes None recorded. Medical Equipment None Reported. Allergies Allergen ID Allergen Name Allergen Category Reaction Reaction Severity Criticality Documentation Date Start Date Code Code System Note Provider Name and Address Organization Details Recorded Time 47684 haloperid ol lactate medicatio n bradycard ia Not available high 09/26/20252013 33342 3 RxNorm Heart block and jon cardi a after recei ving unrec ogniz ed react ion (text : Arrhy thmia , code: 41104 7007) (from [facility]) Not Available [place] - External Data Service - prod 13:33:00 [...] Address Organization Details Last Updated DateTime 5 71423.0 7 g 87 /min 20 /min 97.5 [degF] 95 % 101/61 mm[Hg] ОЛЬГА DUNAWAY [facility] 5 14:38:15 Social History None recorded. Functional Status None recorded. Mental Status None recorded. Family History Nothing Reported. Medical History No medical history recorded. Immunizations Vaccine Type Date Status Note Provider Nam e and Address Organization Details Recorded Time Tdap 7 completed Not Available [facility] 06/04/2023 02:43:58 zoster recombinant 8 completed Not Available [facility] 10/14/2025 14:16:14 zoster recombinant 9 completed Not Available [facility] 10/14/2025 14:16:14 Influenza, split virus, quadrivalent, PF 9 completed Not Available [facility] 10/14/2025 14:16:14 COVID-19, mRNA, LNP-S, PF, 100 mcg/0.5mL dose or 50 mcg/0.25mL dose 1 completed Not Available [facility] 10/14/2025 14:16:14 COVID-19, mRNA, LNP-S, PF, 100 mcg/0.5mL dose or 50 mcg/0.25mL dose 1 completed Not Available [facility] 10/14/2025 14:16:14 Influenza, split virus, quadrivalent, PF 2 completed Not Available [facility] 10/14/2025 14:16:14 Past Encounters Encounter ID Performer Location Encounter Start Date Encounter Closed Date Diagnosis/Indication Diagnosis SNOMED-CT Code Diagnosis ICD10 Code Diagnosis IMO Codes Diagnosis Note [id number] Demarcus Poole DO [facility] ([facility] [place]) [address] [place] [address] 5 07/22/2025 12:25:20 07/24/2025 08:10:49 Alcoholism 8577969 F10.20 Chronic insomnia 7124840 04 F51.04 766054 Bipolar disorder 2408895 4 F31.9 [id number] Demarcus Poole DO [facility]) [address] [place] [address] 5 08/08/2025 13:24:51 08/13/2025 16:03:20 Post-discharge follow-up 162909526 Z09 693609 Ureteric stone 57108314 N20.1 1713871 Sepsis 07690303 A41.9 R65.20 [id number] Demarcus Poole [facility] ([facility] [place]) [address] [place] [address] 5 08/19/2025 13:42:33 08/21/2025 08:46:20 Bipolar disorder 74186531 F31.9 Alcoholism 5908917 F10.2 0 Chronic insomnia 2818340 04 F51.04 465411 Post-disch arge follow-up 254688716 Z09 565570 Health Concerns Section Related Observation LastModified by Organization Detai ls LastModified Time None Recorded Concern Status LastModified by Organization Details LastModified Time None Recorded Payers Encounter Date Sequence Insurance Name Policy Number Policy Mcguire Covered Member ID Mcguire Member ID Guarantor Name 08/19/2025 1 [facility] (MEDICARE REPLACEMENT/A DVANTAGE - PPO) [id number] Bernardino Wilkins Counts [id number] Bernardino Jackson Notes Date Note Type Note Provider Name and Address Organization Details Recorded Time 08/19/2025 text/html InsomniaReported by PatientHPIFor quality, patient reportsdifficulty initiating sleepanddifficulty maintaining sleep. For severity, patient reportssevere. For duration, patient reportschronic. For alleviating factors, patient reportsprescription medication.ROS as noted in the HPI re-admit Demarcus Poole, DO [address] [place] [address], [phone], [facility] - [facility] 08/19/2025 15:41:50
--- OUTSIDE RECORDS SUMMARY | 2025-10-14 21:42 | XMS_ITS | Continuity of Care Document ---
Author Organization [facility] April Quintero, [facility] ([facility]) Address [address] [facility] [place] [address] Assessment No assessment recorded. Plan of Treatment Reminders Order Date Submit Date Provider Last Modified By Organization Details Last Modified Time Details Appointments [facility] VISIT 2024 01:20P Casa Poole, Not available Not available Not available Lab None recorded . Referral None recorded . Procedures None recorded . Surgeries None recorded . Imaging None recorded . Medication Orders None recorded . Patient TargetsNo targets recorded. Patient Instructions Encounter Date Encounter Id Patient Instructions Last Modified By Organization Details Last Modified Time 09/19/2025 [id number] increased anger towards staff. Start risperdal 0.25 bid. [email or web address] Not available 09/19/2025 13:13:02 Reason for Referral None Reported. Problems Name Problem SNOMED Code Status Onset Date Resolution Date Notes Provider Name and Address Organization Details Recorded Time Alcoholis m 3796836 Active 2019 alcoholis m; 0 11:21AM by Pito Terrell, Office Visit; Promoted; acuity set as *; [facility] 3 03:07:35 Bipolar disorder 78010362 Active 2019 bipolar disorder mixed with psychotic features; 0 11:21AM by Pito Terrell, Office Visit; Promoted; acuity set as *; [facility] Available [facility] 3 03:07:37 Chronic insomnia 595874477 Active 2024 О[facility]ГА [facility] 14:33:17 Post-disc harge follow-up 148489164 Active 2024 О[facility]ГА [facility] 16:19:04 Septic shock 38066390 [facility] 20[facility] 16:19:05 Ureteric stent present 9021296044 Active 2024 [facility] 16:19:06 Acute cystitis 89964187 Active 2024 [facility] 16:19:07 Problem Notes None recorded. Medical Equipment None Reported. Allergies Allergen ID Allergen Name Allergen Category Reaction Reaction Severity Criticality Documentation Date Start Date Code Code System Note Provider Name and Address Organization Details Recorded Time 80098 haloperid ol lactate medicatio n bradycard ia Not available high 09/26/20252013 03481 3 RxNorm Heart block and jon cardi a after recei ving unrec ogniz ed react ion (text : Soto martinez , code: 32080 7007) [facility] Not Available sebastian - External Data [...] Address Organization Details Last Updated DateTime 5 24142.2 6 g 90 /min 20 /min 98.7 [degF] 96 % 111/64 mm[Hg] ОЛЬГА DUNAWAY [facility] 5 13:05:32 Social History None recorded. Functional Status None recorded. Mental Status None recorded. Family History Nothing Reported. Medical History No medical history recorded. Immunizations Vaccine Type Date Status Note Provider Nam e and Address Organization Details Recorded Time Tdap 7 completed Not Available [facility] 06/04/2023 02:43:58 zoster recombinant 8 completed Not Available [facility] 10/14/2025 14:16:14 zoster recombinant 9 completed Not Available [facility] 10/14/2025 14:16:14 Influenza, split virus, quadrivalent, PF 9 completed Not Available [facility] 10/14/2025 14:16:14 COVID-19, mRNA, LNP-S, PF, 100 mcg/0.5mL dose or 50 mcg/0.25mL dose 1 completed Not Available [facility] 10/14/2025 14:16:14 COVID-19, mRNA, LNP-S, PF, 100 mcg/0.5mL dose or 50 mcg/0.25mL dose 1 completed [facility] Available [facility] 10/[facility]25 14:16:14 Influenza, split virus, quadrivalent, PF 2 completed Not Available [facility] 10/14/2025 14:16:14 Past Encounters Encounter ID Performer Location Encounter Start Date Encounter Closed Date Diagnosis/Indication Diagnosis SNOMED-CT Code Diagnosis ICD10 Code Diagnosis IMO Codes Diagnosis Note [id number] Demarcus Poole DO [facility] ([facility]) [address] [place] [address] 08/19/2025 13:42:33 08/21/2025 08:46:20 Bipolar disorder 26732372 F31.9 Alcoholism 9401892 F10.2 0 Chronic insomnia 5922265 04 F51.04 457690 Post-disch arge follow-up 507813625 Z09 482046 [id number] Demarcus Poole DO [facility] ([facility]) [address] [place] [address] 09/19/2025 11:16:04 09/24/2025 08:58:28 Bipolar disorder 76128946 F31.9 Chronic insomnia 4347088 04 F51.04 902074 Health Concerns Section Related Observation LastModified by Organization Detai ls LastModified Time None Recorded Concern Status LastModified by Organization Details LastModified Time None Recorded Payers Encounter Date Sequence Insurance Name Policy Number Policy Mcguire Covered Member ID Mcguire Member ID Guarantor Name 09/19/2025 1 [facility] (MEDICARE REPLACEMENT/A DVANTAGE - PPO) [id number] Bernardino Wilkins Counts [id number] Bernardino Wilkins Counts Notes Date Note Type Note Provider Name and Address Organization Details Recorded Time 09/19/2025 text/html InsomniaReported by PatientHPIFor quality, patient reportsdifficulty initiating sleepanddifficulty maintaining sleep. For severity, patient reportssevere. For duration, patient reportschronic. For alleviating factors, patient reportsprescription medication.ROS as noted in the HPI staff reports increase anger towards staff. Demarcus Poole DO [address] [place] [address], [phone], [facility] 09/23/2025 15:21:01
--- NOTE | 2025-10-14 21:49 | PC.NURSE ---
this nurse attempted to administer pts lactulose. pt proceeded to spit it out at this nurse and all over the room. provider notified.
[2025-10-14 21:52] LABS: Glucose Urine UA Negative (Normal); Nitrate Urine Negative (Negative); Specific Gravity, Urine 1.012 (1.005-1.030)
[2025-10-14 21:52] LABS: Reflex Lactate Order REFLEX LACTIC ORDERD
[2025-10-14 21:57] LABS: Add Urine Microscopic? YES
[2025-10-14 21:59] LABS: PCP Screen Urine Negative (Negative)
[2025-10-14 22:59] LABS: Lactic Acid level (Lactate) 2.6 mmol/L (0.5-2.2)
--- NOTE | 2025-10-14 23:34 | PM.CONSULT ---
Providers/Reason For Consult Consulting Physician/Specialty*: Spencer Ramírez MD hospitalist Reason for Consult*: AMS and UTI and hepatic encephalopathy Requesting Physician: Chelle Santillan MD Primary Care Provider: Demarcus Poole DO History of Present Illness History of Present Illness Brenardino Jackson is a 65 year old male [facility] with altered mental status found to have ammonia 186. Serum white count normal but urine loaded white cells greater 100 cc and known history of vancomycin-resistant Enterococcus. Lactic acid was 2.6 and then 2.3. CRP is 19. Procalcitonin 0.7 1. No adverse interval change 2. Right double-J ureteral stent in satisfactory position. No hydronephrosis. 3. Gallbladder faintly radiodense gallstones/sludge (gravel). 4. Liver slightly scalloped contour, query cirrhosis of unknown etiology. 5. Portal hypertension likely accounts for perisplenic varices and splenorenal shunting. 6. L5-S1 grade 2 isthmic spondylolisthesis due to L5 pars interarticularis defects. 7. Advanced age-appropriate degenerative spinal changes, with other chronic/non-acute findings as described above. COMMENTS: On any planned follow-up imaging, consider administration of intravenous contrast to evaluate portosystemic shunting and oral contrast for improved bowel assessment if clinically warranted. Patient is not able to give reliable history. I have spoken with him before on past admission when he was clear of mind. Today he says he but that the only answer he is giving. I asked him to roll over and he said yes but then fearful he held onto the rail on his right side. Medications/Allergies Home Medications ?Medication ?Instructions ?Recorded ?Confirmed ?Last Taken ?Type metformin 1,000 mg tablet 1,000 mg PO BID 11/18/19 08/20/25 08/20/25 History acetaminophen 325 mg tablet 650 mg PO Q6H PRN Pain/increased 04/26/25 08/20/25 08/08/25 History (Tylenol) temp hydrocodone 5 mg-acetaminophen 325 1 tab PO Q8H PRN Pain 05/28/25 08/20/25 08/18/25 History mg tablet eszopiclone 1 mg tablet (Lunesta) 1 mg PO BEDTIME 07/15/25 08/20/25 08/19/25 History sucralfate 1 gram tablet 1 g PO AC&BEDTIME #60 tabs 07/16/25 08/20/25 08/20/25 Rx levothyroxine 25 mcg tablet 25 mcg PO DAILY 08/15/25 08/20/25 08/20/25 History omeprazole 20 mg capsule,delayed 20 mg PO BID 08/15/25 08/20/25 08/20/25 History release potassium chloride 20 mEq oral 20 meq PO BID 08/15/25 08/20/25 08/20/25 History packet simvastatin 40 mg tablet 40 mg PO BEDTIME 08/15/25 08/20/25 08/19/25 History aluminum-mag hydroxide-simethicone 10 ml PO QID PRN Indigestion 08/20/25 08/20/25 Unknown History 200 mg-200 mg-20 mg/5 mL oral susp lactulose 10 gram/15 mL oral 30 ml PO Q8H 30 days #2,700 mL 08/22/25 08/20/25 08/19/25 Rx solution Allergies Allergy/AdvReac Type Severity Reaction Status Date / Time No Known Allergies Allergy Verified 07/28/25 20:26 PFSH Acute PFSH: Medical History (Updated 10/14/25 @ 23:42 by Spencer Ramírez MD) Alcoholism in remission History of colon polyps Prostate cancer Liver cirrhosis Insomnia Type 2 diabetes mellitus Hypothyroidism Surgical History H/O prostatectomy History of esophagogastroduodenoscopy Family History Mother Diabetes mellitus, type 2 Social History Smoking and tobacco/nicotine status: never used tobacco/nicotine Alcohol intake: former Substance/Drug Use: unknown Vitals/I&O/Wt Last Vital Signs Temp 97.5 F L 10/14/25 19:14 Pulse 80 10/14/25 23:00 Resp 16 10/14/25 23:00 BP 100/47 10/14/25 23:00 Pulse Ox 96 10/14/25 23:00 O2 Del Method Room Air 10/14/25 22:00 Weight last 48 hrs Weight 75.523 kg Physical Exam Narrative: General well-developed well-nourished male in no acute cardiopulmonary distress CV regular rate and rhythm Lungs clear to auscultation bilaterally Abdomen positive bowel tones soft nontender Back minimal right flank tenderness left side not tender Suprapubic region equivocal for tenderness Calves no tenderness cords pedal edema Skin mildly diaphoretic Data 10/14/25 19:52 10/14/25 19:52 Micro: Microbiology 10/14/25 20:24 Blood Culture - Preliminary Blood SPECIMEN COLLECTED 10/14/25 19:52 Blood Culture - Preliminary Blood SPECIMEN COLLECTED A&P Assessment and plan 1. Altered mental status: This is multifactorial likely UTI and ammonia 2. Urinary tract infection: Known vancomycin-resistant Enterococcus sensitive in September 2025 only 2 linezolid gentamicin daptomycin and nitrofurantoin. This was resistant to ampicillin Cipro Levaquin tetracycline vancomycin 3. Sepsis: We could potentially resolve sepsis with antibiotics but likely cannot clear the stent. I discussed this with Dr. Ferreira and he is going to contact the urologist. Is unclear to me why the patient still has recurring stents. It looks like the stent from September sepsis has been changed out to a new stent but these are going to chronically be infected until UTIs are unable to be treated. 4. Encephalopathy, hepatic: Patient is receiving lactulose 5. Chronic anemia: Unchanged 6. Alcoholism in remission: Living in [facility]. I discussed this with his son and him before patient has severe alcohol seeking behavior when not in a controlled setting PDMP PDMP Reviewed: Not Reviewed Coding Level of Care Code 10498 Diagnoses Altered mental status R41.82 Urinary tract infection N39.0 Sepsis A41.9 Encephalopathy, hepatic K76.82 Chronic anemia D64.9 Alcoholism in remission F10.21 Time Spent (min) 35
[2025-10-15] VITALS (22 sets, daily range): BP systolic 89–128; BP diastolic 50–79; PULSE 71–91; RESP 14–21; TEMP 36.7; O2SAT 88–100
[2025-10-15] MEDS: sodium chlor 0.9% + KCl 20 mEq 20 MEQ/1,000 ML BAG 150 MEQ IV ×4 (01:14→21:39)
[2025-10-15] MEDS: meropenem 1,000 mg SDV 1000 MG IVP ×3 (06:04→22:33)
--- NOTE | 2025-10-15 11:16 | PC.PHAR ---
Current medication list from [facility] no longer shows the following medications: Lunesta 1mg at bedtime 07/15/25 Wolbach 5-325mg q8h prn 05/28/25 Simvastatin 40mg at bedtime 08/15/25 Carafate 1gram ac and hs 07/16/25
[2025-10-15] MEDS: lactulose oral liq 20 gm/30 mL UDC 30 GM PO (13:27)
[2025-10-16] VITALS (55 sets, daily range): BP systolic 107–162; BP diastolic 60–127; PULSE 69–86; RESP 10–23; O2SAT 93–99
[2025-10-16] MEDS: sodium chlor 0.9% + KCl 20 mEq 20 MEQ/1,000 ML BAG 150 MEQ IV ×2 (05:02→14:56)
[2025-10-16] MEDS: meropenem 1,000 mg SDV 1000 MG IVP ×2 (06:00→14:52)
[2025-10-16] MEDS: ferrous sulfate EC 325 mg Tablet PO (07:40)
[2025-10-16 12:08] LABS: Hematocrit 36.1 % (37-53); Hemoglobin 10.70 g/dL (11.27-16.99); Mean Corpuscular HGB Conc 29.6 g/dL (30-55); Mean Corpuscular Hemoglobin 24.4 pg (27-33); Mean Corpuscular Volume 82.4 fl (82-101); Nucleated Red Blood Cells % 0 %; Platelet Count 130 10^3/cmm (157-399); Red Blood Count 4.38 10^6/uL (3.85-5.65); White Blood Count 4.91 10^3/uL (3.29-11.43)
[2025-10-16 12:30] LABS: Alanine Aminotransferase 6 U/L (0-41); Albumin Level 2.7 g/dL (3.5-5.2); Alkaline Phosphatase 89 U/L (40-130); Anion Gap 14.1 (5-19); Aspartate Amino Transferase 15 U/L (0-40); Blood Urea Nitrogen 5 mg/dL (8-23); Calcium 7.9 mg/dL (8.5-10.5); Carbon Dioxide 18 mmol/L (22-29); Chloride 110 mmol/L (98-107); Globulin 4.4 g/dL (1.3-4.6); Glucose 87 mg/dL (65-115); Magnesium 1.7 mg/dL (1.7-2.3); Osmolality Calculated 283 mOsm/kg (285-295); Potassium 4.1 mmol/L (3.5-5.1); Sodium 138 mmol/L (136-145); Total Protein 7.1 g/dL (6.6-8.7)
[2025-10-16 12:37] LABS: Slide Review Slide Review Perform
[2025-10-16 12:45] LABS: Ammonia 57 umol/L (16-60)
[2025-10-16] MEDS: lactulose oral liq 20 gm/30 mL UDC 30 GM PO (14:42)
== END 2025-10-16 20:20 | disposition short-term general hospital (02) ==
PROVIDERS: Family Medicine; Physician Assistant; Emergency Provider Emergency Medicine; PCP Internal Medicine
DX: K76.82 Hepatic encephalopathy (principal); E86.0 Dehydration; N39.0 Urinary tract infection, site not specified; Z86.19 Personal history of other infectious and parasitic diseases; Z96.0 Presence of urogenital implants; E11.9 Type 2 diabetes mellitus without complications; Z85.46 Personal history of malignant neoplasm of prostate
CPT/HCPCS: 36415; 36416; 70450; 71045; 74176; 80053; 80306; 80307; 81001; 82140; 82962; 83605; 83735; 84145; 84443; 85025; 86140; 87040; 87086; 96361; 96365; 96366; 96375; 96376; 99285; J2020; J2185; J3480; J7030; J7040; J9999